=== PATIENT | male | born 1945 | race Caucasian/White ===

== ENCOUNTER → 2018-02-22 07:30 | Outpatient (CLI) | payer MEDICARE, SELFPAY ==
[2018-02-22 09:23] LABS: Alanine Aminotransferase 18 IU/L (21-72); Albumin Globulin Ratio 1.2 (1.0-2.8); Alkaline Phosphatase 57 U/L (38-126); Aspartate Aminotransferase 22 IU/L (17-59); BUN Creatinine Ratio 24.3 (6-22); Bilirubin Total 0.6 mg/dL (0.2-1.3); Calcium 8.6 mg/dL (8.4-10.2); Cholesterol 157 mg/dL (140-199); Estimated Glomerular Filt Rate 49.5 mL/min (>60); Globulin 3.4 g/dL (1.7-4.1); Glucose 98 mg/dL (80-110); HDL Cholesterol 28 mg/dL (40-60); HEMOLYSIS < 15 (0-50); LDL Cholesterol Calculated 98 mg/dL (<100); Potassium 3.7 mmol/L (3.4-5.1); Sodium 142 mmol/L (137-145); Total Protein 7.4 g/dL (6.3-8.2); Triglycerides 155 mg/dL (35-150)
[2018-02-22 09:41] LABS: Thyroid Stimulating Hormone 2.02 uIU/mL (0.47-4.68)
== END ==
PROVIDERS: PCP Internal Medicine; Visit Provider Internal Medicine Cardiovascular Disease
DX: I48.0 Paroxysmal atrial fibrillation (principal)
CPT/HCPCS: 36415; 80053; 80061; 84443

== ENCOUNTER → 2018-04-12 07:11 | Outpatient (CLI) | payer MEDICARE, SELFPAY ==
[2018-04-12 09:16] LABS: Hemoglobin A1C% w Est Avg Glu 5.7 % (4.0-6.0)
[2018-04-12 09:52] LABS: Blood Urea Nitrogen 30 mg/dL (9-20); Calcium 9.4 mg/dL (8.4-10.2); Carbon Dioxide 29 mmol/L (22-32); Chloride 100 mmol/L (98-107); Estimated Glomerular Filt Rate 45.6 mL/min (>60); Glucose 96 mg/dL (80-110); HEMOLYSIS < 15 (0-50); Potassium 4.3 mmol/L (3.4-5.1); Sodium 142 mmol/L (137-145)
== END ==
PROVIDERS: Family Provider Internal Medicine; PCP Internal Medicine; Visit Provider Internal Medicine
DX: E11.9 Type 2 diabetes mellitus without complications (principal)
CPT/HCPCS: 36415; 80048; 83036

== ENCOUNTER 2018-05-08 16:48 | Emergency (ER) | payer MEDICARE, SELFPAY ==
[2018-05-08 16:52] VITALS: BP 150/85; PULSE 76; RESP 20; TEMP 36; O2SAT 95
--- NOTE | 2018-05-08 18:20 | PC.NURSE ---
pt c/o right whitt bleeding just below the knee, started today, could not get to stop bleeding, does that aspirin.
--- NOTE | 2018-05-08 18:28 | ED.EXTPRO ---
HPI - Extremity Problem General Chief complaint: Extremity Problem,Nontraumatic Stated complaint: RIGHT LEG NON STOP BLEEDING Time Seen by Provider: 05/08/18 18:16 Source: patient and family Mode of arrival: ambulatory Limitations: no limitations History of Present Illness HPI Narrative: Patient presents with a small bleeding skin lesion on the left anterior lower leg. He does take aspirin. It has been bleeding for a few hours despite use of cotton swabs. He is not dizzy nor weak or lightheaded. He denies any specific injury but states there is a small lesion there which he picked and then it started bleeding MD Complaint: other Onset (ago): hour(s) Pain Consistency: constant Location: right Related Data Home Medications Medication Instructions Recorded Confirmed magnesium oxide 1 tab PO Q DAY #0 07/31/16 metoprolol succinate [Toprol XL] 25 mg PO BID #0 07/31/16 zinc gluconate 50 mg PO #0 10/11/16 aspirin 325 mg PO QDAY #0 04/08/17 glucosamine sulfate [Genicin] PO QDAY #0 04/08/17 testosterone cypionate 1.5 ml IM [id number] #0 04/08/17 [Depo-Testosterone] Previous Rx's Medication Instructions Recorded tamsulosin [Flomax] 0.8 mg PO 1730 #60 cap 10/14/16 lovastatin 40 mg PO Q DAY #90 tab 03/04/17 omeprazole 20 mg PO QDAY #90 cap 03/04/17 metformin 1,000 mg PO BIDCC #180 tab 05/06/17 potassium chloride [Klor-Con M20] 20 meq PO AMCC #90 tab 05/27/17 enalapril maleate 5 mg PO QDAY #90 tab 08/03/17 triamterene-hydrochlorothiazid 1 cap PO QDAY #90 cap 09/15/17 [Dyazide] blood sugar diagnostic strips #100 each 04/23/18 Review of Systems Review of Systems All systems reviewed & are unremarkable except as noted in HPI and below Constitutional Denies chills, Denies fever(s), Denies lethargy and Denies weakness Eyes Denies change in vision, Denies eye discharge, Denies irritation and Denies loss of vision ENT Ears, Nose, Mouth, and Throat: Denies change in voice, Denies neck pain and Denies sore throat Cardiovascular Denies chest pain, Denies irregular heart rhythm, Denies lightheadedness, Denies palpitations, Denies dyspnea, Denies dyspnea on exertion and Denies orthopnea Respiratory Denies cough, Denies dyspnea, Denies dyspnea on exertion and Denies wheezing Gastrointestinal Gastrointestinal: Denies abdominal pain, Denies change in bowel habits, Denies diarrhea, Denies nausea and Denies vomiting Genitourinary Denies hematuria, Denies flank pain, Denies urinary incontinence and Denies urinary urgency Musculoskeletal Denies neck pain Integumentary/Breasts Denies pruritus, Denies erythema, Denies rash, Reports skin ulcer and Reports wounds Neurologic Denies confusion, Denies loss of vision and Denies weakness Psychiatric Denies anxiety, Denies confusion, Denies depression, Denies homicidal ideation and Denies suicidal ideation Endocrine Denies palpitations Hematologic/Lymphatic Denies easy bruising Allergic/Immunologic Denies wheezing PFSH Surgical History History of cystoscopy Family History Father CAD (coronary artery disease) Hyperlipidemia Hypertension Social History Smoking Status: Never smoker Exam Narrative Exam Narrative: GEN: Pleasant 73-year-old male is alert and oriented, resting comfortably EYES: Pupils are equal, round, and reactive to light and accommodation. Extraoccular muscles are intact bilaterally. There is no subconjunctival hemorrhage or exudate. CHEST: Lungs are clear to auscultation bilaterally and free of wheezes, rales, or rhonchi. Heart rate is regular rhythm, there are no murmurs, clicks, rubs, or gallops. There is no chest wall tenderness. ABD: Abdomen is soft and nontender. There is no guarding or rebound. Bowel sounds are normal in all 4 quadrants. There is no mass or organomegaly. EXT: Small bleeding lesion on left anterior whitt., appears to be a small vascular abnormality SKIN: Warm, pink, and dry. No erythema or rash Initial Vital Signs Initial Vital Signs: Vital Signs Temperature 96.8 F L 05/08/18 16:52 Pulse Rate 76 05/08/18 16:52 Respiratory Rate 20 05/08/18 16:52 Blood Pressure 150/85 H 05/08/18 16:52 Pulse Oximetry 95 05/08/18 16:52 Procedures Laceration Repair Laceration 1: Site: lower extremity Side (If applicable): right Size (cm): 0.02 Description: linear Depth: simple, single layer Local Anesthetic: lidocaine 1% and with epi Amount of anesthesia used (mL): 3 Skin layer closed with: nylon Size (cm): 4-0 Number of sutures: 1 Course Reevaluation(s) Reevaluation #1: No bleeding after deep biting suture placed Vital Signs - 8 hr 05/08/18 16:52 Temperature 96.8 F L Pulse Rate 76 Respiratory Rate 20 Blood Pressure 150/85 H Pulse Oximetry 95 Discharge Plan Departure Patient Disposition: Home, Self-Care Clinical Impression: Bleeding from wound Discharge Date/Time: 05/08/18 18:41 Interventions: ED Discharge Assessment Last Done: 05/08/18 18:40 Instructions: Skin Wound Activity Restrictions/Additional Instructions: *You have been diagnosed with [ bleeding varicosity ] *What to do: * continue to take medications as directed Please keep the wound clean and dry to the best of your ability. Please monitor for signs of infection such as redness to the skin or increasing pain. Have the sutures removed by your doctor in about 5-7 days. If you are unable to get into your doctor, we would be happy to remove the sutures in that same timeframe. Prescriptions: No Action metoprolol succinate [Toprol XL] 25 MG tablet extended release 24 hr 25 mg PO BID Qty: 0 RF: 0 magnesium oxide 400 MG tablet 1 tab PO Q DAY Qty: 0 RF: 0 zinc gluconate 50 MG tablet 50 mg PO Qty: 0 RF: 0 tamsulosin [Flomax] 0.4 MG capsule,extended release 24hr 0.8 mg PO 1730 Qty: 60 RF: 3 lovastatin 40 MG tablet 40 mg PO Q DAY Qty: 90 RF: 3 omeprazole 20 MG capsule,delayed release(DR/EC) 20 mg PO QDAY Qty: 90 RF: 3 aspirin 325 MG tablet,delayed release (DR/EC) 325 mg PO QDAY Qty: 0 RF: 0 glucosamine sulfate [Genicin] 500 MG capsule PO QDAY Qty: 0 RF: 0 testosterone cypionate [Depo-Testosterone] 200 MG/1 ML oil 1.5 ml IM [id number] Qty: 0 RF: 0 metformin 1,000 MG tablet 1,000 mg PO BIDCC Qty: 180 RF: 3 potassium chloride [Klor-Con M20] 20 MEQ tablet,ER particles/crystals 20 meq PO AMCC Qty: 90 RF: 0 enalapril maleate 5 MG tablet 5 mg PO QDAY Qty: 90 RF: 1 triamterene-hydrochlorothiazid [Dyazide] 37.5 MG/25 MG capsule 1 cap PO QDAY Qty: 90 RF: 0 blood sugar diagnostic [True Metrix Glucose Test Strip] strip .ROUTE .MEDSUPPLY Qty: 100 RF: 4
== END 2018-05-08 18:41 | disposition home or self-care (01) ==
PROVIDERS: Emergency Provider Emergency Medicine; Family Provider Internal Medicine; PCP Internal Medicine
DX: S81.801A Unspecified open wound, right lower leg, initial encounter (principal)
CPT/HCPCS: 12001; 99282

== ENCOUNTER → 2018-05-20 08:05 | Outpatient (CLI) | payer MEDICARE, SELFPAY ==
[2018-05-20 10:55] LABS: Free T3, Triiodothyronine Free 3.68 pg/mL (2.77-5.27); Free T4, Direct Thyroxine 1.15 ng/dL (0.78-2.19)
[2018-05-20 11:09] LABS: Thyroid Stimulating Hormone 2.15 uIU/mL (0.47-4.68)
== END ==
PROVIDERS: Family Provider Urology; PCP Internal Medicine; Visit Provider Internal Medicine Endocrinology, Diabetes & Metabolism
DX: E29.1 Testicular hypofunction (principal); E03.8 Other specified hypothyroidism
CPT/HCPCS: 36415; 84403; 84439; 84443; 84481

== ENCOUNTER → 2018-05-24 10:38 | Outpatient (CLI) | payer MEDICARE, SELFPAY ==
[2018-05-24 12:32] LABS: Add Manual Diff / Slide Review NO; Basophils Percent Auto 0.9 % (0-2); Eosinophils Percent Auto 4.1 % (2-4); Hematocrit 44.6 % (41-53); Hemoglobin 15.2 g/dL (13.5-17.5); Mean Corpuscular HGB Conc 34.1 % (30-36); Mean Corpuscular Hemoglobin 31.7 PG (26-34); Monocytes Percent Auto 10.2 % (3-14); Neutrophils Absolute Auto 4100 /uL (3000-5900); Neutrophils Percent Auto 71.8 % (50-75); Platelet Count 186 X10^3/uL (150-400); Red Blood Cell Count 4.79 X10^6/uL (4.5-5.9); White Blood Cell Count 5.8 X10^3/uL (4.5-11.0)
[2018-05-24 13:03] LABS: Alanine Aminotransferase 44 IU/L (21-72); Albumin 4.3 g/dL (3.5-5.0); Albumin Globulin Ratio 1.5 (1.0-2.8); Alkaline Phosphatase 68 U/L (38-126); Aspartate Aminotransferase 25 IU/L (17-59); Bilirubin Total 0.7 mg/dL (0.2-1.3); Bilirubin Unconjugated 0.3 mg/dL (0.0-1.1); Globulin 2.9 g/dL (1.7-4.1); HEMOLYSIS < 15 (0-50); Total Protein 7.2 g/dL (6.3-8.2)
== END ==
PROVIDERS: Family Provider Urology; PCP Internal Medicine; Visit Provider Urology
DX: R97.20 Elevated prostate specific antigen [PSA] (principal); E29.1 Testicular hypofunction
CPT/HCPCS: 36415; 80076; 84153; 84403; 85025

== ENCOUNTER → 2018-07-05 08:48 | Outpatient (CLI) | payer MEDICARE, SELFPAY ==
[2018-07-05 09:39] LABS: Creatinine Urine Random 103.4 mg/dL
[2018-07-05 09:44] LABS: Microalbumi Creatinin Ratio Ur 38.6 ug/mg CR (<30)
[2018-07-05 09:46] LABS: Hemoglobin A1C% w Est Avg Glu 5.5 % (4.0-6.0)
[2018-07-05 09:52] LABS: BUN Creatinine Ratio 19.2 (6-22); Blood Urea Nitrogen 25 mg/dL (9-20); Calcium 9.1 mg/dL (8.4-10.2); Carbon Dioxide 34 mmol/L (22-32); Chloride 102 mmol/L (98-107); Estimated Glomerular Filt Rate 53.8 mL/min (>60); Glucose 93 mg/dL (80-110); HEMOLYSIS < 15 (0-50); Potassium 4.3 mmol/L (3.4-5.1); Sodium 142 mmol/L (137-145)
[2018-07-05 18:02] LABS: Hep C Virus Ab w/Reflex Quant NEGATIVE s/c (NEGATIVE)
== END ==
PROVIDERS: Family Provider Urology; PCP Internal Medicine; Visit Provider Denturist
DX: N18.9 Chronic kidney disease, unspecified (principal); E11.9 Type 2 diabetes mellitus without complications; I10 Essential (primary) hypertension
CPT/HCPCS: 36415; 80048; 82043; 82570; 83036; 86803

== ENCOUNTER → 2018-08-16 15:53 | Outpatient (CLI) | payer MEDICARE, SELFPAY | PROVIDERS: Family Provider Urology; PCP Internal Medicine; Visit Provider Urology | DX: R97.20 Elevated prostate specific antigen [PSA] (principal) | CPT/HCPCS: 36415; 84153 ==

== ENCOUNTER → 2019-01-13 08:41 | Outpatient (CLI) | payer MEDICARE, SELFPAY ==
[2019-01-13 09:52] LABS: Add Manual Diff / Slide Review NO; Basophils Absolute Auto 0 /uL (0-100); Basophils Percent Auto 0.5 % (0-2); Eosinophils Absolute Auto 200 /uL (0-450); Eosinophils Percent Auto 2.7 % (2-4); Hematocrit 46.4 % (41-53); Hemoglobin 15.5 g/dL (13.5-17.5); Lymphocytes Absolute Auto 800 /uL (1100-4500); Lymphocytes Percent Auto 9.1 % (25-40); Mean Corpuscular HGB Conc 33.3 % (30-36); Mean Corpuscular Hemoglobin 29.6 PG (26-34); Mean Corpuscular Volume 88.8 fL (80-100); Monocytes Absolute Auto 800 /uL (0-900); Monocytes Percent Auto 8.6 % (3-14); Neutrophils Absolute Auto 7100 /uL (1500-7000); Neutrophils Percent Auto 79.1 % (50-75); Platelet Count 181 X10^3/uL (150-400); Red Blood Cell Count 5.22 X10^6/uL (4.5-5.9)
[2019-01-13 10:31] LABS: Alanine Aminotransferase 25 IU/L (21-72); Albumin 4.1 g/dL (3.5-5.0); Albumin Globulin Ratio 1.4 (1.0-2.8); Alkaline Phosphatase 61 U/L (38-126); Aspartate Aminotransferase 19 IU/L (17-59); Bilirubin Total 0.7 mg/dL (0.2-1.3); Bilirubin Unconjugated 0.5 mg/dL (0.0-1.1); HEMOLYSIS < 15 (0-50); Total Protein 7.1 g/dL (6.3-8.2)
[2019-01-13 10:47] LABS: Free T3, Triiodothyronine Free 5.46 pg/mL (2.77-5.27); Free T4, Direct Thyroxine 1.14 ng/dL (0.78-2.19)
[2019-01-13 11:00] LABS: Thyroid Stimulating Hormone 1.85 uIU/mL (0.47-4.68)
[2019-01-13 11:02] LABS: Prostate Specific Antigen 8.31 ng/mL (0.10-4.00)
== END ==
PROVIDERS: Family Provider Internal Medicine; PCP Internal Medicine; Visit Provider Internal Medicine Endocrinology, Diabetes & Metabolism
DX: E03.8 Other specified hypothyroidism (principal); R97.20 Elevated prostate specific antigen [PSA]; E29.1 Testicular hypofunction
CPT/HCPCS: 36415; 80076; 84153; 84403; 84439; 84443; 84481; 85025

== ENCOUNTER → 2019-02-14 13:50 | Outpatient (CLI) | payer MEDICARE, SELFPAY ==
--- NOTE | 2019-02-14 | DI.ECHO.S_ITS ---
[place] [facility]---------+ [facility] +---------+ : : [address] : : : : [phone] : : : : Phone: [phone]+ Echocardiogram Report + + :Name: ADRIAN WARREN Study Date: 02/14/2019 Height: 68 in : :[facility] Weight: 233 lb : : Gender: Male BSA: 2.2 m2 : :: 1945 Age: 73 yrs BP: 140/78 mmHg: :Reason For Study: A FIB : :Ordering Physician: Gonzalez Zamudio : :Deepti Performed By: Spring Sheets : :Referring: GONZALEZ LEVINE : + + Interpretation Summary The left ventricle is normal in size. The ejection fraction is estimated to be 55-60%. Compared to the prior exam, the left ventricular function is improved. Flattened septum is consistent with RV pressure/volume overload. Diastolic parameters suggest a pseudonormalization pattern, consistent with probable elevated filling pressures. The right ventricle is moderately dilated. Right ventricular systolic function is mildly reduced. There is mild to moderate mitral regurgitation. Compared to the prior echo study, there has been no change in the severity of mitral regurgitation. There is moderate tricuspid regurgitation. Compared to the prior echo exam, there has been an increase in TR severity. The right ventricular systolic pressure is estimated to be at least 49 mmHg based on an estimated right atrial pressure of 3 mm Hg. Compared to the prior echo exam, there has been an increase in the severity of pulmonary hypertension. There is moderate pulmonic regurgitation. The ascending aorta is mildly enlarged. Procedure: A two-dimensional transthoracic echocardiogram with color flow and Doppler was performed. The study quality was technically adequate. Comparison is made with the echocardiogram of 03/18/16. The patient was in normal sinus rhythm during the exam. The patient had occasional PVCs during the exam. Left Ventricle: There is mild concentric left ventricular hypertrophy. The left ventricle is normal in size. There is no thrombus. The ejection fraction is estimated to be 55-60%. Compared to the prior exam, the left ventricular function is improved. Flattened septum is consistent with RV pressure/volume overload. Diastolic parameters suggest a pseudonormalization pattern, consistent with probable elevated filling pressures. Right Ventricle: The right ventricle is moderately dilated. Right ventricular systolic function is mildly reduced. Atria: The left atrium is severely dilated. The left atrium has remained unchanged in size since the prior echo exam. The right atrium is severely dilated. The right atrium has significantly increased in size since the prior echo exam. There is no Doppler evidence for an interatrial shunt. Mitral Valve: The mitral valve leaflets are moderately calcified. There is moderate to severe mitral annular calcification. No significant mitral valve stenosis. There is mild to moderate mitral regurgitation. Compared to the prior echo study, there has been no change in the severity of mitral regurgitation. Aortic Valve: The aortic valve is trileaflet. There is mild aortic valve sclerosis. Leaflet mobility is minimally reduced. There is no aortic valve stenosis. There is mild aortic regurgitation. Compared to the prior echo study, there has been no change in the severity of aortic regurgitation. Tricuspid Valve: The tricuspid valve is normal. There is moderate tricuspid regurgitation. The right ventricular systolic pressure is estimated to be at least 49 mmHg based on an estimated right atrial pressure of 3 mm Hg. Compared to the prior echo exam, there has been an increase in TR severity. Compared to the prior echo exam, there has been an increase in the severity of pulmonary hypertension. Pulmonic Valve: The pulmonic valve is not well seen, but is grossly normal. There is moderate pulmonic regurgitation. Great Vessels: The aortic root is mildly dilated. The ascending aorta is mildly enlarged. The aortic arch could not be visualized. The pulmonary artery is normal size. The IVC is of normal diameter and collapses greater than 50% with a sniff. This suggests a low right atrial pressure of 3 mm Hg. Pericardium/ Pleura There is no pericardial effusion. There is no pleural effusion. MMode/2D Measurements & Calculations LVIDd: 4.8 cm LVOT diam: 2.3 cm LVIDs: 3.1 cm Ao root diam: 4.0 cm FS: 34.7 % asc Aorta Diam: 3.8 cm EPSS: 1.1 cm IVSd: 1.2 cm LVPWd: 1.2 cm LV justice. diameter/BSA (cm/m^2): 2.2 LV sys. diameter/BSA (cm/m^2): 1.4 LA A2 area: 33.8 cm2 RA long axis: 6.8 cm LA A4 area: 37.3 cm2 RA area: 33.0 cm2 LA length (vol): 7.4 cm RA vol: 134.8 ml LA vol: 144.9 ml RA : 61.8 ml/m2 LA vol index: 66.4 ml/m2 IVC diam: 2.0 cm TAPSE: 1.0 cm Doppler Measurements & Calculations Ao V2 max: 161.8 cm/sec LVOT Max Keyon: 79.7 cm/sec Ao V2 mean: 111.3 cm/sec LV V1 max P.5 mmHg Ao max P.5 mmHg LV V1 VTI: 15.4 cm Ao mean P.8 mmHg IZABEL(I,D): 2.1 cm2 Ao V2 VTI: 30.2 cm IZABEL(V,D): 2.1 cm2 sev ratio: 0.51 IZABEL indexed to BSA (cm^2/m^2): 0.98 MV E max keyon: 112.2 cm/sec TR max keyon: 338.1 cm/sec MV A max keyon: 61.5 cm/sec TR max P.7 mmHg MV E/A: 1.8 PA V2 max: 77.2 cm/sec Med Peak E' Keyon: 4.6 cm/sec PA V2 mean: 49.7 cm/sec E/E' med: 24.2 PA mean P.1 mmHg Lat Peak E' Keyon: 6.2 cm/sec PA Accel Time: 0.06 sec E/E' lat: 18.1 E/e' average: 21.1 MV dec time: 0.15 sec MVA(VTI): 2.3 cm2 MV V2 mean: 71.4 cm/sec SV(LVOT): 64.9 ml MV mean P.3 mmHg MV V2 VTI: 28.1 cm Reading Physician:YESSI
== END ==
PROVIDERS: Family Provider Internal Medicine; PCP Internal Medicine; Visit Provider Internal Medicine Cardiovascular Disease
DX: I08.3 Combined rheumatic disorders of mitral, aortic and tricuspid valves (principal); I48.0 Paroxysmal atrial fibrillation; I77.89 Other specified disorders of arteries and arterioles; I27.20 Pulmonary hypertension, unspecified
CPT/HCPCS: 93306

== ENCOUNTER → 2019-02-24 09:18 | Outpatient (CLI) | payer MEDICARE, SELFPAY ==
--- NOTE | 2019-02-24 | DI.MRI.S_ITS ---
PROCEDURE: MR STROKE Pre- and post-contrast brain MRI, non-contrast brain MR angiogram, pre- and postcontrast neck MR angiogram INDICATIONS: DIPLOPIA TECHNIQUE: Brain: Noncontrast axial T1 spin echo, axial T2 fast spin echo, sagittal and axial FLAIR, coronal T2 fast spin echo, axial gradient echo, axial diffusion and ADC through the brain. After the administration of contrast, axial 3D VIBE of the cranial vasculature and brain. Brain MRA: Non-contrast 3-D time of flight MR angiogram, with multiple bbcevyz-mpwqnierm-oufwbumnqs (MIP) reformats performed. Neck MRA: Axial and sagittal TruFISP through the neck. Coronal dynamic MR angiogram during administration of contrast in the arterial and venous phases, with 3-dimenstional toxjnjf-vksxzqddx-ynztwqqpmg (MIP) reformats constructed from subtraction images. COMPARISON: None. FINDINGS: Image quality: Examination is limited by motion artifact. BRAIN: CSF spaces: Ventricles are normal in size and shape. Basal cisterns are patent. There is a nonenhancing CSF intensity focus at the anterior aspect of the left temporal lobe, measuring 43 mm diameter. Brain: No intracranial bleeds or mass effects. Moderate diffuse volume loss. Mild degree of patchy high FLAIR signal within the periventricular and subcortical white matter, consistent with small vessel ischemic disease. Abraham-white matter interface is normal. Diffusion weighted images show no acute ischemic insults. Brainstem appears normal. There is loss of the internal carotid artery flow void. No abnormal intracranial enhancement. Skull and face: Calvarial marrow signal is normal. Orbits appear normal. Sinuses: Sinuses and mastoids are clear. BRAIN MR ANGIOGRAM: Anterior circulation: Intracranial internal carotid arteries are normal in size and enhancement. The flow within the paired anterior cerebral arteries is normal and symmetric. The flow within the middle cerebral arteries is normal and symmetric. The anterior communicating artery is seen. No stenoses, occlusions, or aneurysms. Posterior circulation: The distal right vertebral artery appears to be occluded or very small in caliber. The right posterior inferior cerebellar artery appears to arise from the basilar artery. origin of the right posterior cerebral artery. The flow within the posterior cerebral arteries is normal and symmetric. No stenoses, occlusions, or aneurysms. NECK MR ANGIOGRAM: Thoracic aortic arch is patent visualized. There is a common origin of the innominate and left common carotid artery, which is patent. Innominate artery is patent. Right vertebral artery origin is not seen. There is a small caliber visualize right mid vertebral artery. Distal right vertebral artery is not seen. Right common carotid artery is grossly patent. Right internal carotid artery origin is not well seen, and demonstrates a possible high-grade stenosis. Right internal carotid artery is otherwise patent. Right external carotid artery is patent. Left common carotid artery is not well seen proximally, but is otherwise patent. Left external carotid artery is patent. Left internal carotid artery is occluded. Left subclavian artery is patent. Left vertebral artery dimensions a high-grade origin stenosis, and is otherwise patent. Survey Rodman T2 imaging through the neck is grossly unremarkable. IMPRESSION: BRAIN MRI: 1. No acute process. No recent infarct. 2. Volume loss and small vessel ischemic disease. 3. Left middle cranial fossa arachnoid cyst. BRAIN MR ANGIOGRAM: 1. Occluded left internal carotid artery. 2. Occluded versus small caliber right distal vertebral artery. 3. Otherwise negative cerebral MR angiography. NECK MR ANGIOGRAM: 1. Occluded left internal carotid artery. 2. Suboptimally visualized right internal carotid artery origin, which may be severely stenotic. This could be further assessed with carotid arterial Doppler examination, if clinically indicated. 3. High-grade left vertebral artery origin stenosis. 4. Small caliber, suboptimally visualized right vertebral artery. Dictated by: Giorgi Daniels M.D. on 02/24/2019 at 13:16 Approved by: Giorgi Daniels M.D. on 02/24/2019 at 13:24
== END ==
PROVIDERS: Family Provider Internal Medicine; PCP Internal Medicine; Visit Provider Internal Medicine
DX: H53.2 Diplopia (principal); I65.22 Occlusion and stenosis of left carotid artery; I65.02 Occlusion and stenosis of left vertebral artery
CPT/HCPCS: 70548; 70553; A9579

== ENCOUNTER → 2019-03-15 09:12 | Outpatient (CLI) | payer MEDICARE, SELFPAY ==
--- NOTE | 2019-03-15 | DI.US.S_ITS ---
PROCEDURE: US CAROTID DOPPLER BI INDICATIONS: OCCLUSION OF LEFT INTERNAL CAROTID ARTERY TECHNIQUE: Color and pulse Doppler interrogation was performed of both carotid systems, with image documentation and velocity measurements. COMPARISON: [facility], MR CAROL STROKE, 02/24/2019, 9:37. FINDINGS: Stenosis calculations are based on SRU (Society of Radiologists in Ultrasound) criteria. Right side: Brachial blood pressure: 144/77 mm Hg. Common carotid artery peak systolic velocity: 89 cm/sec. Internal carotid artery peak systolic velocity: 116 cm/sec. Internal carotid artery end diastolic velocity: 40 cm/sec. External carotid artery peak systolic velocity: 93 cm/sec. ICA/CCA peak systolic ratio: 1.30. Abraham scale imaging description: Moderate scattered plaque. Percent internal carotid artery stenosis: Less than 50%. Vertebral artery: Flow direction is antegrade. Left side: Brachial blood pressure: 137/79 mm Hg. Common carotid artery peak systolic velocity: 54 cm/sec. Internal carotid artery peak systolic velocity: Occluded Internal carotid artery end diastolic velocity: N./A. External carotid artery peak systolic velocity: 87 cm/sec. ICA/CCA peak systolic ratio: N./A.. Abraham scale imaging description: Heavy scattered plaque. Percent internal carotid artery stenosis: Occluded internal carotid artery.. Vertebral artery: Flow direction is antegrade. IMPRESSION: 1. Occluded left ICA. 2. Less than 50% right ICA stenosis. Dictated by: John Chahal [facility] Interpreted: Eloisa Shen MD on 03/15/2019 at 12:00 Approved by: Eloisa Shen M.D. on 03/15/2019 at 13:40
[2019-03-15 11:18] LABS: Add Manual Diff / Slide Review NO; Basophils Absolute Auto 100 /uL (0-100); Basophils Percent Auto 0.9 % (0-2); Eosinophils Absolute Auto 200 /uL (0-450); Eosinophils Percent Auto 3.1 % (2-4); Hematocrit 46.2 % (41-53); Hemoglobin 15.5 g/dL (13.5-17.5); Lymphocytes Absolute Auto 900 /uL (1100-4500); Lymphocytes Percent Auto 13.9 % (25-40); Mean Corpuscular HGB Conc 33.6 % (30-36); Mean Corpuscular Hemoglobin 29.9 PG (26-34); Monocytes Absolute Auto 700 /uL (0-900); Monocytes Percent Auto 10.2 % (3-14); Neutrophils Absolute Auto 4800 /uL (1500-7000); Neutrophils Percent Auto 71.9 % (50-75); Platelet Count 175 X10^3/uL (150-400); Red Blood Cell Count 5.19 X10^6/uL (4.5-5.9); Red Cell Distribution Width 15.2 % (11.6-14.8); White Blood Cell Count 6.7 X10^3/uL (4.5-11.0)
[2019-03-15 11:53] LABS: Alanine Aminotransferase 25 IU/L (21-72); Albumin 4.4 g/dL (3.5-5.0); Albumin Globulin Ratio 1.3 (1.0-2.8); Alkaline Phosphatase 66 U/L (38-126); Aspartate Aminotransferase 25 IU/L (17-59); BUN Creatinine Ratio 19.3 (6-22); Bilirubin Total 0.6 mg/dL (0.2-1.3); Bilirubin Unconjugated 0.3 mg/dL (0.0-1.1); Blood Urea Nitrogen 27 mg/dL (9-20); Calcium 9.2 mg/dL (8.4-10.2); Carbon Dioxide 32 mmol/L (22-32); Chloride 97 mmol/L (98-107); Estimated Glomerular Filt Rate 49.4 mL/min (>60); Globulin 3.4 g/dL (1.7-4.1); Glucose 104 mg/dL (80-110); HEMOLYSIS < 15 (0-50); Potassium 4.4 mmol/L (3.4-5.1); Sodium 138 mmol/L (137-145); Total Protein 7.8 g/dL (6.3-8.2)
[2019-03-15 12:11] LABS: Thyroid Stimulating Hormone 3.45 uIU/mL (0.47-4.68)
[2019-03-15 12:23] LABS: Prostate Specific Antigen 9.08 ng/mL (0.10-4.00)
== END ==
PROVIDERS: PCP Internal Medicine; Visit Provider Internal Medicine
DX: I65.23 Occlusion and stenosis of bilateral carotid arteries (principal); I48.0 Paroxysmal atrial fibrillation; E29.1 Testicular hypofunction; N40.0 Benign prostatic hyperplasia without lower urinary tract symptoms
CPT/HCPCS: 36415; 80053; 80076; 84153; 84403; 84443; 85025; 93880

== ENCOUNTER → 2019-04-19 08:30 | Outpatient (CLI) | payer MEDICARE, SELFPAY ==
--- NOTE | 2019-04-29 08:42 | PM.PFT.1 ---
Pulmonary Function Test Referral & Results Date Patient Seen: 04/19/19 Requesting provider: Chevy Purdy Indication: Bronchitis Results: The spirometry demonstrates an FVC of 2.81 L which is 75% of predicted. The FEV1 was measured at 1.93 L which is 73% of predicted. The FEV1/FVC ratio was 69 which is 95% of predicted. Following the administration of bronchodilator there was no appreciable change. Lung volumes show an SVC of 2.80 L which is 69% of predicted. The diffusing capacity was measured at 18.09 which is 63% of predicted. No hemoglobin value was provided, so no correction for potential anemia could be made, if appropriate. The maximum voluntary ventilation was reduced Interpretation: This study demonstrates mild obstructive lung disease based on slight reduction in FEV1. There was no evidence of significant benefit following bronchodilator administration There is also slight reduction in lung volumes suggesting mild restrictive lung disease based on reduction S VC There is also a more moderate reduction in diffusing capacity suggesting disease at the capillary alveolar level This is consistent with a diagnosis of COPD Clinical correlation suggested
== END ==
PROVIDERS: PCP Internal Medicine; Referring Provider Internal Medicine Cardiovascular Disease; Visit Provider Internal Medicine
DX: J40 Bronchitis, not specified as acute or chronic (principal); I48.0 Paroxysmal atrial fibrillation
CPT/HCPCS: 94060; 94726; 94729

== ENCOUNTER → 2019-05-03 12:59 | Outpatient (CLI) | payer MEDICARE, SELFPAY ==
[2019-05-03 14:46] LABS: Clostridium Difficile Tox PCR Negative for C. diff
== END ==
PROVIDERS: Internal Medicine; PCP Internal Medicine; Visit Provider Internal Medicine
DX: Z11.2 Encounter for screening for other bacterial diseases (principal)
CPT/HCPCS: 87493

== ENCOUNTER → 2019-06-16 08:47 | Outpatient (CLI) | payer MEDICARE, SELFPAY ==
[2019-06-16 10:39] LABS: Prostate Specific Antigen 7.46 ng/mL (0.10-4.00)
== END ==
PROVIDERS: PCP Internal Medicine; Visit Provider Urology
DX: R97.20 Elevated prostate specific antigen [PSA] (principal)
CPT/HCPCS: 36415; 84153

== ENCOUNTER → 2019-07-19 10:14 | Outpatient (CLI) | payer MEDICARE, SELFPAY ==
[2019-07-19 11:07] LABS: BUN Creatinine Ratio 23.3 (6-22); Blood Urea Nitrogen 35 mg/dL (9-20); Calcium 8.9 mg/dL (8.4-10.2); Carbon Dioxide 28 mmol/L (22-32); Chloride 102 mmol/L (98-107); Cholesterol 161 mg/dL (140-199); Estimated Glomerular Filt Rate 45.5 mL/min (>60); Glucose 110 mg/dL (80-110); HDL Cholesterol 37 mg/dL (40-60); HEMOLYSIS 18 (0-50); LDL Cholesterol Calculated 94 mg/dL (<100); Potassium 4.3 mmol/L (3.4-5.1); Sodium 142 mmol/L (137-145); Triglycerides 152 mg/dL (35-150)
[2019-07-19 11:19] LABS: Free T3, Triiodothyronine Free 4.02 pg/mL (2.77-5.27)
[2019-07-19 11:33] LABS: TSH w/ Reflex to FT4 1.87 uIU/mL (0.47-4.68)
[2019-07-19 11:50] LABS: Vitamin B12 589 pg/mL (239-931)
== END ==
PROVIDERS: PCP Internal Medicine; Visit Provider Internal Medicine
DX: E11.9 Type 2 diabetes mellitus without complications (principal); R41.89 Other symptoms and signs involving cognitive functions and awareness; E03.9 Hypothyroidism, unspecified
CPT/HCPCS: 36415; 80048; 80061; 82607; 83036; 84443; 84481

== ENCOUNTER 2020-01-12 19:16 | Inpatient (IN) | payer MEDICARE, SELFPAY ==
--- NOTE | 2020-01-12 19:23 | DI.RAD.S_ITS ---
PROCEDURE: XR CHEST 1V INDICATIONS: fever, weakness, cough TECHNIQUE: One view of the chest was acquired. COMPARISON: CT, CT ANGIO CHEST, 10/01/2016, 11:38. [facility], , CHEST 1 VIEW, 10/11/2016, 13:56. FINDINGS: Surgical changes and devices: None. Lungs and pleura: Left greater than right bibasilar opacity. No pleural effusions or pneumothorax. Mediastinum: Mediastinal contours appear normal. Heart size is enlarged. Bones and chest wall: No suspicious bony lesions. Overlying soft tissues appear unremarkable. IMPRESSION: Left greater than right bibasilar opacity. This could be due to atelectasis, pneumonia, or aspiration. Cardiomegaly. Dictated by: Job Vargas M.D. on 01/12/2020 at 19:56 Approved by: Job Vargas M.D. on 01/12/2020 at 19:59
--- NOTE | 2020-01-12 19:26 | ED_ITS ---
HPI - Fever General Chief Complaint: Nausea/Vomiting/Diarrhea Stated Complaint: Fever, N/V decreased LOC Time Seen by Provider: 01/12/20 19:22 Source: patient and EMS Mode of arrival: EMS Limitations: no limitations History of Present Illness HPI Narrative: This is a 74-year-old male comes emergency department with complaint of fever the last day, nausea vomiting the last few hours and weakness. Per EMS patient has had increased confusion recently although he is alert, appropriate, cooperative and answering questions appropriately department. Patient states that he does not have a headache, he denies any antione st pain or shortness of breath. He has had a cough which he states has been present for a prolonged period of time and EMS states his also correlated this. He did have some nausea and dry heaving with EMS and here in the department. Patient denies abdominal pain. He denies any diarrhea or c onstipation, he denies any urinary, frequency, dysuria or urgency. Patient denies any rashes or skin changes. He has felt more weak describes it as generalized and not localized. He does have a cardiac history describes an ablation in the past and follows with cardiology and was scheduled to have a Holter monitor which was canceled based on the current lozoya Demadex situation. He does take amiodarone, he takes enalapril, levothyroxine, a statin as well as metoprolol, potassium supplementation, Xarelto and Flomax. Patient denies any tobacco, rare alcohol with none recently. He lives at home independently with his is normally mobile. Related Data Home Medications Medication Instructions Recorded Confirmed magnesium oxide 1 tab PO Q DAY #0 07/31/16 04/18/19 metoprolol succinate [Toprol XL] 25 mg PO BID #0 07/31/16 04/18/19 aspirin 325 mg PO QDAY #0 04/08/17 04/18/19 testosterone cypionate 1.5 ml IM [id number] #0 04/08/17 04/18/19 [Depo-Testosterone] amiodarone 200 mg tablet 200 mg PO DAILY 04/18/19 04/18/19 levothyroxine 88 mcg capsule 88 mcg PO DAILY 04/18/19 04/18/19 liothyronine 5 mcg tablet 10 mcg PO DAILY tab 04/18/19 04/18/19 rivaroxaban 20 mg tablet 20 mg PO DAILY 04/18/19 04/18/19 Previous Rx's Medication Instructions Recorded tamsulosin [Flomax] 0.8 mg PO 1730 #60 cap 10/14/16 lovastatin 40 mg PO Q DAY #90 tab 03/04/17 omeprazole 20 mg PO QDAY #90 cap 03/04/17 potassium chloride [Klor-Con M20] 20 meq PO AMCC #90 tab 05/27/17 enalapril maleate 5 mg PO QDAY #90 tab 08/03/17 blood sugar diagnostic #100 each 04/23/18 Allergies Allergy/AdvReac Type Severity Reaction Status Date / Time No Known Drug Allergies Allergy Unverified 04/18/19 09:47 Review of Systems Review of Systems ROS Unobtainable: All systems reviewed & are unremarkable except as noted in HPI and below Patient History Social History Smoking Status: Never smoker Smoking Status: Never smoker alcohol intake frequency: 0-2 drinks per day Substance Use Type: does not use Exam Narrative Exam Narrative: GEN: well nourished, well appearing obese male, alert and oriented x 3, patient appears to be in mild distress. Patient is warm to touch. HEENT: Atraumatic, pupils are equal round reactive to light, extraocular movements are intact, nares are clear, throat is clear without any exudates, erythema, tonsillar enlargement or uvular deviation, negative Kernig's and Brudzinski. HEART: Regular rate and rhythm without murmur, clicks, rubs. Pulses are equal in upper and lower extremities LUNGS:Lungs have mild wheezes on the right, no rales, crackles, chest moves symmetrically, no tachypnea. Speaking in full sentences. ABD:bowel sounds normal, soft, non-tender, no guarding, rebound, rigidity, no masses noted, no hepatosplenomegaly :No CVA tenderness, normal may genitalia. MSCL: Non-tender, no muscle atrophy, full range of motion NEURO:CN 2-12 intact, sensation normal SKIN: No rash, no erythema or petechiae. Initial Vital Signs Initial Vital Signs: Vital Signs Temperature 99.3 F 01/12/20 19:55 Pulse Rate 80 01/12/20 19:55 Respiratory Rate 22 03/26/20 19:55 Blood Pressure 139/58 L 01/12/20 19:55 Pulse Oximetry 91 01/12/20 19:55 Course Orders Ordered: ED Orders 01/12/20 19:16 Urinalysis and Microscopic Stat 01/12/20 19:23 XR chest 1V Stat 01/12/20 19:25 C-Reactive Protein Quant Stat Complete Blood Count AUTO DIFF Stat Comprehensive Metabolic Panel Stat Influenza A & B (PCR) Stat Lactate (Lactic Acid) Stat NT-proBNP (BNP-Adult 18+) Stat Partial Thromboplastin Time Stat Procalcitonin Stat Prothrombin Time INR Stat Troponin & CK Cardiac Panel Stat 01/12/20 19:33 EKG-12 Lead Stat 01/12/20 20:08 Blood Culture Stat 01/12/20 20:43 Respiratory Panel (Film Array) Stat Discontinued Medications Acetaminophen (Tylenol) 650 mg PO NOW ONE Stop: 01/12/20 19:23 Last Admin: 01/12/20 19:41 Dose: 650 mg Documented by: PERLA Albuterol (Ventolin Hfa) 4 puff INH NOW ONE Stop: 01/12/20 19:33 Last Admin: 01/12/20 20:11 Dose: 4 puff Documented by: MARILYNN Sodium Chloride (Normal Saline 0.9%) 1,000 mls @ 1,000 mls/hr IV BOLUS ONE Stop: 01/12/20 20:25 Last Admin: 01/12/20 19:42 Dose: 1,000 mls/hr Documented by: PERLA Ceftriaxone Sodium/Dextrose (Rocephin) 2 gm in 50 mls @ 100 mls/hr IV NOW ONE Stop: 01/12/20 21:03 Last Admin: 01/12/20 20:45 Dose: 100 mls/hr Documented by: PERLA Vital Signs Vital signs: Vital Signs - 8 hr 01/12/20 19:55 01/12/20 20:12 01/12/20 20:30 Temperature 99.3 F Pulse Rate 80 80 81 Respiratory Rate 22 20 20 Blood Pressure 139/58 L Blood Pressure [Left Arm] 124/60 Pulse Oximetry 91 92 91 MDM - Fever Lab Data Attestation: I reviewed the patient's lab results. Result diagrams: 01/12/20 19:25 01/12/20 19:25 Labs: Lab Results 01/12/20 01/12/20 01/12/20 Range/Units 19:16 19:25 19:25 WBC (4.5-11.0) X10^3/uL RBC (4.5-5.9) X10^6/uL Hgb (13.5-17.5) g/dL Hct (41-53) % MCV (80-100) fL MCH (26-34) PG MCHC (30-36) % RDW (11.6-14.8) % Plt Count (150-400) X10^3/uL Neut % (Auto) (50-75) % Lymph % (Auto) (25-40) % [place] % (Auto) (3-14) % Eos % (Auto) (2-4) % Baso % (Auto) (0-2) % Neut # (Auto) (1222-4521) /uL Lymph # (Auto) (8737-3206) /uL [place] # (Auto) (0-900) /uL Eos # (Auto) (0-450) /uL Baso # (Auto) (0-100) /uL PT (10.1-12.7) SECONDS INR (0.9-1.3) APTT (26.4-36.2) SECONDS Sodium (137-145) mmol/L Potassium (3.4-5.1) mmol/L Chloride (98-107) mmol/L Carbon Dioxide (22-32) mmol/L BUN (9-20) mg/dL Creatinine (0.66-1.25) mg/dL Estimated GFR (>60) mL/min BUN/Creatinine Ratio (6-22) Glucose (80-110) mg/dL Lactate (0.7-2.1) mmol/L Calcium (8.4-10.2) mg/dL Total Bilirubin (0.2-1.3) mg/dL AST (17-59) IU/L ALT (<50) IU/L Alkaline Phosphatase (38-126) U/L Total Creatine Kinase 107 (55-170) U/L CK-MB (CK-2) 1.07 (<2.37) ng/mL CK-MB (CK-2) Rel Index 1.0 L (1.5-5.0) % Troponin I < 0.012 (0.01-0.034) ng/mL C-Reactive Protein 1.4 H (<1.0) mg/dL NT-Pro-B Natriuret Pep 330 (<450) pg/mL Total Protein (6.3-8.2) g/dL Albumin (3.5-5.0) g/dL Globulin (1.7-4.1) g/dL Albumin/Globulin Ratio (1.0-2.8) Procalcitonin (<0.5) ng/mL Urine Color Yellow Urine Appearance Clear Urine pH 5.0 (4.5-8.0) Ur Specific [place] 1.020 (1.000-1.035) Urine Protein Negative (Negative) Urine Glucose (UA) Negative (Negative) g/dL Urine Ketones Negative (NEGATIVE) Urine Occult Blood Trace-lysed (Negative) Urine Nitrate Negative (Negative) Urine Bilirubin Negative (NEGATIVE) Urine Urobilinogen 0.2 (0.2) E.U./dL Ur Leukocyte Esterase Negative (NEGATIVE) Urine RBC 0-1/hpf (0-5/HPF) Urine WBC 0-1/hpf (0-5/HPF) Ur Squamous Epith Cells 0-1 /hpf (0-5/HPF) Urine Bacteria None seen (None) Ur Culture Indicated? Cult not indicated Influenza A (RT-PCR) Flu a negative (NEGATIVE) Influenza B (RT-PCR) Flu b negative (NEGATIVE) 01/12/20 01/12/20 01/12/20 Range/Units 19:25 19:25 19:25 WBC 12.4 H (4.5-11.0) X10^3/uL RBC 4.10 L (4.5-5.9) X10^6/uL Hgb 13.2 L (13.5-17.5) g/dL Hct 38.4 L (41-53) % MCV 93.7 (80-100) fL MCH 32.2 (26-34) PG MCHC 34.3 (30-36) % RDW 13.5 (11.6-14.8) % Plt Count 189 (150-400) X10^3/uL Neut % (Auto) 88.9 H (50-75) % Lymph % (Auto) 2.4 L (25-40) % [place] % (Auto) 6.7 (3-14) % Eos % (Auto) 0.6 L (2-4) % Baso % (Auto) 1.4 (0-2) % Neut # (Auto) 37309 H (6638-8121) /uL Lymph # (Auto) 300 L (6064-4106) /uL [place] # (Auto) 800 (0-900) /uL Eos # (Auto) 100 (0-450) /uL Baso # (Auto) 200 H (0-100) /uL PT 18.0 H (10.1-12.7) SECONDS INR 1.6 H (0.9-1.3) APTT 33 (26.4-36.2) SECONDS Sodium (137-145) mmol/L Potassium (3.4-5.1) mmol/L Chloride (98-107) mmol/L Carbon Dioxide (22-32) mmol/L BUN (9-20) mg/dL Creatinine (0.66-1.25) mg/dL Estimated GFR (>60) mL/min BUN/Creatinine Ratio (6-22) Glucose (80-110) mg/dL Lactate (0.7-2.1) mmol/L Calcium (8.4-10.2) mg/dL Total Bilirubin (0.2-1.3) mg/dL AST (17-59) IU/L ALT (<50) IU/L Alkaline Phosphatase (38-126) U/L Total Creatine Kinase (55-170) U/L CK-MB (CK-2) (<2.37) ng/mL CK-MB (CK-2) Rel Index (1.5-5.0) % Troponin I (0.01-0.034) ng/mL C-Reactive Protein (<1.0) mg/dL NT-Pro-B Natriuret Pep (<450) pg/mL Total Protein (6.3-8.2) g/dL Albumin (3.5-5.0) g/dL Globulin (1.7-4.1) g/dL Albumin/Globulin Ratio (1.0-2.8) Procalcitonin 0.56 H (<0.5) ng/mL Urine Color Urine Appearance Urine pH (4.5-8.0) Ur Specific [place] (1.000-1.035) Urine Protein (Negative) Urine Glucose (UA) (Negative) g/dL Urine Ketones (NEGATIVE) Urine Occult Blood (Negative) Urine Nitrate (Negative) Urine Bilirubin (NEGATIVE) Urine Urobilinogen (0.2) E.U./dL Ur Leukocyte Esterase (NEGATIVE) Urine RBC (0-5/HPF) Urine WBC (0-5/HPF) Ur Squamous Epith Cells (0-5/HPF) Urine Bacteria (None) Ur Culture Indicated? Influenza A (RT-PCR) (NEGATIVE) Influenza B (RT-PCR) (NEGATIVE) 01/12/20 01/12/20 Range/Units 19:25 19:25 WBC (4.5-11.0) X10^3/uL RBC (4.5-5.9) X10^6/uL Hgb (13.5-17.5) g/dL Hct (41-53) % MCV (80-100) fL MCH (26-34) PG MCHC (30-36) % RDW (11.6-14.8) % Plt Count (150-400) X10^3/uL Neut % (Auto) (50-75) % Lymph % (Auto) (25-40) % [place] % (Auto) (3-14) % Eos % (Auto) (2-4) % Baso % (Auto) (0-2) % Neut # (Auto) (1921-5928) /uL Lymph # (Auto) (7012-3903) /uL [place] # (Auto) (0-900) /uL Eos # (Auto) (0-450) /uL Baso # (Auto) (0-100) /uL PT (10.1-12.7) SECONDS INR (0.9-1.3) APTT (26.4-36.2) SECONDS Sodium 135 L (137-145) mmol/L Potassium 4.0 (3.4-5.1) mmol/L Chloride 100 (98-107) mmol/L Carbon Dioxide 24 (22-32) mmol/L BUN 37 H (9-20) mg/dL Creatinine 1.49 H (0.66-1.25) mg/dL Estimated GFR 45.9 L (>60) mL/min BUN/Creatinine Ratio 24.8 H (6-22) Glucose 162 H (80-110) mg/dL Lactate 2.5 H (0.7-2.1) mmol/L Calcium 9.2 (8.4-10.2) mg/dL Total Bilirubin 0.5 (0.2-1.3) mg/dL AST 25 (17-59) IU/L ALT 21 (<50) IU/L Alkaline Phosphatase 75 (38-126) U/L Total Creatine Kinase (55-170) U/L CK-MB (CK-2) (<2.37) ng/mL CK-MB (CK-2) Rel Index (1.5-5.0) % Troponin I (0.01-0.034) ng/mL C-Reactive Protein (<1.0) mg/dL NT-Pro-B Natriuret Pep (<450) pg/mL Total Protein 8.0 (6.3-8.2) g/dL Albumin 4.4 (3.5-5.0) g/dL Globulin 3.6 (1.7-4.1) g/dL Albumin/Globulin Ratio 1.2 (1.0-2.8) Procalcitonin (<0.5) ng/mL Urine Color Urine Appearance Urine pH (4.5-8.0) Ur Specific [place] (1.000-1.035) Urine Protein (Negative) Urine Glucose (UA) (Negative) g/dL Urine Ketones (NEGATIVE) Urine Occult Blood (Negative) Urine Nitrate (Negative) Urine Bilirubin (NEGATIVE) Urine Urobilinogen (0.2) E.U./dL Ur Leukocyte Esterase (NEGATIVE) Urine RBC (0-5/HPF) Urine WBC (0-5/HPF) Ur Squamous Epith Cells (0-5/HPF) Urine Bacteria (None) Ur Culture Indicated? Influenza A (RT-PCR) (NEGATIVE) Influenza B (RT-PCR) (NEGATIVE) Imaging Data Chest x-ray: Radiologist's Impression: [address] [address] XRay Report Signed Patient: Leandro Allen [facility]#: [id number] : 3Acct:[id number] Age/Sex: 74 / MDate of Service: 01/12/20 Loc: ED Accession Number: [id number] Procedure: XR chest 1V Ordering Provider: Adriana Odell D.O. PROCEDURE: XR CHEST 1V INDICATIONS: fever, weakness, cough TECHNIQUE: One view of the chest was acquired. COMPARISON: CT, CT ANGIO CHEST, 10/01/2016, 11:38. [facility], CR, CHEST 1 VIEW, 10/11/2016, 13:56. FINDINGS: Surgical changes and devices: None. Lungs and pleura: Left greater than right bibasilar opacity. No pleural effusions or pneumothorax. Mediastinum: Mediastinal contours appear normal. Heart size is enlarged. Bones and chest wall: No suspicious bony lesions. Overlying soft tissues fern ear unremarkable. IMPRESSION: Left greater than right bibasilar opacity. This could be due to atelectasis, pneumonia, or aspiration. Cardiomegaly. Dictated by: Job Vargas M.D. on 01/12/2020 at 19:56 Approved by: Job Vargas M.D. on 01/12/2020 at 19:59 ECG Data Attestation: I personally reviewed and interpreted this ECG as follows: Prior ECG tracings: available for review Interpretation: Rhythm appears sinus although T-waves may show a prolonged IN or may be absent. Rate is 81, appears regular but no clear P-waves with every beat. QRS is 134 the QTC of 455. Patient has RSR in V1 V2 V3 and has some flattening of T-wave in 5 in 6, no elevation and otherwise ST segments do appears similar to priors. [facility] Narrative Medical decision making narrative: Patient comes in with fever, some alteration in mental status. Chest x-ray does show some suspicious changes for pneumonia, patient has an elevated white count mildly elevated procalcitonin making a bacterial infection more likely but influenza swab was performed is negative, mercedes virus was also included and is pending for the next several days. Patient has a leukocytosis that is neutrophil predominant, he has chronic kidney disease but appears to be at baseline with no major electrolyte abnormalities, troponin is negative. No LFT abnormalities C-reactive protein is 1.4. UA is negative. Patient does not meet septic criteria at this time. Patient is 91% on room air but not tachypneic, on recheck he is occasionally dips to 90%. He had a L fluids the 30 cc/kilos bolus was not started as patient did meet septic criteria and with his cardiac history is at high risk for fluid overload. Plan for admission as he has been increasingly weak with sign and pneumonia. He is in contact precautions. And Rocephin was ordered to cover for pneumonia. Spoke with [employer] Leandro Jerome who accepts plan for inpatient admission. Discussed with patient and he is aware and comfortable with the plan. was also updated by nursing. Discharge Plan Departure Patient Disposition: Admitted As Inpatient Clinical Impression: Pneumonia Referrals: Robbie Mccullough MD [Primary Care Provider] - Admit Date/Time: 01/12/20 20:43 Admit Provider: Latrell Jerome
[2020-01-12 19:35] LABS: Bacteria Urine None Seen
[2020-01-12 19:37] LABS: Appearance Urine UA CLEAR; Bilirubin Urine UA NEGATIVE (NEGATIVE); Color Urine UA YELLOW; Glucose Urine UA NEGATIVE (Negative); Ketones Urine UA NEGATIVE (NEGATIVE); Leukocyte Esterase Urine UA NEGATIVE (NEGATIVE); Nitrite Urine UA NEGATIVE (Negative); Occult Blood Urine UA TRACE-LYSED (Negative); Protein Urine UA NEGATIVE (Negative); Urobilinogen Urine UA 0.2 E.U./dL (0.2)
[2020-01-12] MEDS: ACETAMINOPHEN 325 MG TABLET 650 MG PO (19:41)
[2020-01-12 19:42] LABS: Add Manual Diff / Slide Review NO; Basophils Absolute Auto 200 /uL (0-100); Basophils Percent Auto 1.4 % (0-2); Eosinophils Absolute Auto 100 /uL (0-450); Eosinophils Percent Auto 0.6 % (2-4); Hematocrit 38.4 % (41-53); Hemoglobin 13.2 g/dL (13.5-17.5); Lymphocytes Absolute Auto 300 /uL (1100-4500); Lymphocytes Percent Auto 2.4 % (25-40); Mean Corpuscular HGB Conc 34.3 % (30-36); Mean Corpuscular Hemoglobin 32.2 PG (26-34); Mean Corpuscular Volume 93.7 fL (80-100); Monocytes Absolute Auto 800 /uL (0-900); Monocytes Percent Auto 6.7 % (3-14); Neutrophils Absolute Auto 11000 /uL (1500-7000); Neutrophils Percent Auto 88.9 % (50-75); Platelet Count 189 X10^3/uL (150-400); Red Cell Distribution Width 13.5 % (11.6-14.8); White Blood Cell Count 12.4 X10^3/uL (4.5-11.0)
[2020-01-12] MEDS: SODIUM CHLORIDE 0.9% 1,000 ML 1000 ML IV (19:42)
[2020-01-12 19:45] LABS: Culture Indicated Urine Cult Not Indicated; RBC Urine 0-1/HPF (0-5/HPF); Squamous Epithelial Cell Urine 0-1 /HPF (0-5/HPF); WBC Urine 0-1/HPF (0-5/HPF)
[2020-01-12 19:53] LABS: INR 1.6 (0.9-1.3)
[2020-01-12 19:55] VITALS: BP 139/58; PULSE 80; RESP 22; TEMP 37.4; O2SAT 91; BMI 36.0
[2020-01-12 19:55] LABS: PTT Partial Thromboplastin Tim 33 SECONDS (26.4-36.2)
[2020-01-12 19:56] LABS: Creatine Kinase 107 U/L (55-170)
[2020-01-12 19:58] LABS: Alanine Aminotransferase 21 IU/L (<50); Albumin 4.4 g/dL (3.5-5.0); Albumin Globulin Ratio 1.2 (1.0-2.8); Alkaline Phosphatase 75 U/L (38-126); Aspartate Aminotransferase 25 IU/L (17-59); BUN Creatinine Ratio 24.8 (6-22); Bilirubin Total 0.5 mg/dL (0.2-1.3); Blood Urea Nitrogen 37 mg/dL (9-20); Calcium 9.2 mg/dL (8.4-10.2); Carbon Dioxide 24 mmol/L (22-32); Chloride 100 mmol/L (98-107); Estimated Glomerular Filt Rate 45.9 mL/min (>60); Globulin 3.6 g/dL (1.7-4.1); Glucose 162 mg/dL (80-110); HEMOLYSIS < 15 (0-50); Lactate (Lactic Acid) 2.5 mmol/L (0.7-2.1); Sodium 135 mmol/L (137-145)
[2020-01-12 20:09] LABS: NT-proBNP (BNP-Adult 18+) 330 pg/mL (<450); Troponin I < 0.012 ng/mL (0.01-0.034)
[2020-01-12 20:11] LABS: Creatine Kinase MB 1.07 ng/mL (<2.37)
[2020-01-12] MEDS: ALBUTEROL HFA 60 PUFF/8 GM INH INH (20:11)
[2020-01-12 20:12] VITALS: PULSE 80; RESP 20; O2SAT 92
[2020-01-12 20:13] LABS: C-Reactive Protein Quant 1.4 mg/dL (<1.0)
[2020-01-12 20:14] LABS: Influenza A - CEPHEID Flu A NEGATIVE (NEGATIVE); Influenza B - CEPHEID Flu B NEGATIVE (NEGATIVE)
[2020-01-12 20:22] LABS: Procalcitonin 0.56 ng/mL (<0.5)
[2020-01-12 20:30] VITALS: BP 124/60; PULSE 81; RESP 20; O2SAT 91
[2020-01-12] MEDS: CEFTRIAXONE 2 GM/50 ML FROZ.PIGGY IV (20:45)
--- NOTE | 2020-01-12 21:22 | P.HP_ITS ---
History of Present Illness History of Present Illness Date Patient Seen: 01/12/20 Time Patient Seen: 22:08 Date of Onset of Symptoms: 01/11/20 Chief complaint: Fever, N/V decreased LOC Narrative: Mr. Leandro Allen is a 74-year-old male with history significant for a history of hypertension, atrial flutter anticoagulated on Xarelto, type 2 diabetes that is diet controlled, COPD, asthma, obstructive sleep apnea, GERD, diverticulosis, adenomas of colon and bladder tumor who presents to the hospital for a fever for 1 day the patient states he began having symptoms of fever yesterday and today developed nausea and vomiting with generalized weakness. He has had associated symptoms of intermittent dizziness with some wheezing and increased symptoms of reflux. Patient has a history of COPD and asthma and has had a chronic cough without change in sputum or character. He reports having no recent sick contacts and in fact states that he has been ?holed up for the last several days. His family provides the history that he had the flu early November and has not quite returned to baseline since. He denies headaches or visual changes, nasal congestion or sore throat. He has had no chest pain or palpitations. He denies shortness of breath and reports exercising daily on a treadmill. He has had no abdominal pain, constipation or diarrhea. Denies urinary symptoms and has nocturia 2-3 times daily. He is normally independent in activities of daily living. Upon arrival to the ER has a temperature of 99.3?, heart rate of 80, blood pressure 139/58, respiratory rate of 22 saturating 91% on room air. On imaging is checks x-ray reveals left greater than right bibasilar opacities and enlarged heart silhouette. On 12 lead EKG is sinus rhythm with a right bundle branch block and left anterior fascicular block. On laboratory analysis his elevated white count at 12.4, hemoglobin 13.2, hematocrit 38.4 and platelets of 118. He has an increased neutrophil count 89%. On chemistries is electrolytes are within normal range and he has a BUN of 37 and creatinine 1.49 for an EGFR of 45.9. His nonfasting glucose is 162. His liver functions are all within normal range. He has a total CK of 1057, MBs of 1.07, an index of 1.0%. His troponin is less than 0.012 and has a BNP of 330. On coagulation he has a PT of 18, INR 1 .6, PTT of 33. He has a CRP of 1.4 and a procalcitonin 0.56 with a lactic acid of 2.5. He respiratory panel and COVID-19 screening are pending. In the ER the patient received normal saline 1 L, Tylenol, albuterol treatments and was started on Rocephin 2 g IV. The patient is admitted to the medicine service for pneumonia. Patient History Medical History (Updated 01/12/20 @ 22:20 by GUALBERTO Cortes) Asthma (Inactive 11/04/11) Atrial flutter (03/20/17) Benign prostatic hyperplasia (11/04/11) Body mass index (BMI) of 30.0 to 39.9 (10/27/11) Controlled type 2 diabetes mellitus (10/03/16) Diverticulosis of sigmoid colon (03/20/17) Essential hypertension (Inactive 10/27/11) Gastroesophageal reflux disease (03/01/14) Hyperlipidemia (Inactive 10/27/11) Malignant neoplasm of urinary bladder (10/11/16) Tubular adenoma of colon (03/20/17) Surgical History (Updated 01/12/20 @ 22:20 by GUALBERTO Cortes) History of cardiac radiofrequency ablation (Acute) History of cystoscopy Family & Social History Family History (Updated 01/12/20 @ 22:20 by GUALBERTO Cortes) Father CAD (coronary artery disease) Hyperlipidemia Hypertension Mother CAD (coronary artery disease) Hypertension Hyperlipidemia Safety & Behavioral: Feels Safe in Current Yes Environment Been Physically Hurt or No Threatened By a Person Tobacco & Substance use: Smoking Status Never smoker alcohol intake frequency 0-2 drinks per day Substance Use Type does not use Comment: Patient lives in a single family home with his to whom he has been for 52 years and his niece. He states both his mother in the [facility] father coronary artery disease with hypertension hyperlipidemia consuming meat daily. He is an only child and has no children. 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 Alcohol: Patient endorses consuming 1 glass of wine monthly. Substance use: The patient denies recreational pharmaceuticals herbal or cannabis products. Advanced directives: Patient states he has formal advanced directives. His wishes to be FULL CODE. He designates his to be his surrogate decision maker. [facility] Home Medications and Allergies Home Medications Medication Instructions Recorded Confirmed Type magnesium oxide 1 tab PO Q DAY #0 07/31/16 04/18/19 History metoprolol succinate [Toprol XL] 25 mg PO DAILY #0 07/31/16 01/12/20 History tamsulosin [Flomax] 0.8 mg PO 1730 #60 cap 10/14/16 04/18/19 Rx lovastatin 40 mg PO Q DAY #90 tab 03/04/17 01/12/20 Rx omeprazole 20 mg PO QDAY #90 cap 03/04/17 04/18/19 Rx testosterone cypionate 1.5 ml IM [id number] #0 04/08/17 04/18/19 History [Depo-Testosterone] potassium chloride [Klor-Con M20] 20 meq PO AMCC #90 tab 05/27/17 04/18/19 Rx enalapril maleate 5 mg PO QDAY #90 tab 08/03/17 01/12/20 Rx blood sugar diagnostic #100 each 04/23/18 04/18/19 Rx amiodarone 200 mg tablet 200 mg PO DAILY 04/18/19 01/12/20 History liothyronine 5 mcg tablet 10 mcg PO DAILY tab 04/18/19 01/12/20 History rivaroxaban 20 mg tablet 20 mg PO DAILY 04/18/19 01/12/20 History levothyroxine 75 mcg PO DAILY 01/12/20 01/12/20 History metoprolol succinate 12.5 mg PO BEDTIME 01/12/20 01/12/20 History triamterene-hydrochlorothiazid 1 cap PO DAILY 01/12/20 01/12/20 History Allergies Allergy/AdvReac Type Severity Reaction Status Date / Time latex Allergy Verified 01/12/20 21:37 Review of Systems Review of Systems ROS: Yes All systems reviewed with the patient and are negative except as otherwise documented Exam Vital Signs (past 8 hours): - 01/12/20 19:55 01/12/20 20:12 01/12/20 20:30 Temperature 99.3 F Pulse Rate 80 80 81 Respiratory Rate 22 20 20 Blood Pressure 139/58 L Blood Pressure [Left Arm] 124/60 Pulse Oximetry 91 92 91 Oxygen Delivery Method Room Air Narrative Exam Narrative: GENERAL APPEARANCE: well developed, obese male with a BMI of 37.6 resting semi recumbent on structure in no acute distress. HEENT: Normocephalic, PERRLA, sclera is anicteric and conjunctiva clear, EOMs intact without nystagmus, no sinus tenderness to percussion, no rhinorrhea, mucous membranes are moist and pink without lesions or exudate. NECK/THYROID: neck supple, short thick neck, no visible JVD, no thyromegaly, trachea midline. LYMPH NODES: no cervical or supraclavicular lymphadenopathy. SKIN: [place], warm and dry, no visible lesions, rashes, ulcerations or petechiae. HEART: regular rate and rhythm, S1-S2, no murmur, no rubs or gallops, brisk cap illary refill, 1+ lower extremity edema LUNGS: Diminished breath sounds bibasilar, no coarseness crackles or wheezing, no cough present CHEST: Symmetrical movement, no accessory muscle use, good tidal volume, speaking in full sentences. ABDOMEN: Firm, dull to percussion, no abdominal tenderness, no guarding or peritoneal signs, no organomegaly, no flank or suprapubic tenderness, active bowel tones. EXTREMITIES: moves all extremities, strength is 5/5 and symmetrical, no deformities or joint effusions, no back pain with straight leg raise. NEUROLOGIC: AAO x4, impaired memory, cranial nerves II-XII grossly intact, sensation intact to light touch, hearing grossly normal to speech. PSYCH: Good eye contact, cooperative, appropriate with stable behavior Objective Labs Result Diagrams: 01/12/20 19:25 01/12/20 19:25 Labs: Laboratory Results - last 24 hr 01/12/20 01/12/20 01/12/20 19:16 19:25 19:25 WBC RBC Hgb Hct MCV MCH MCHC RDW Plt Count Neut % (Auto) Lymph % (Auto) [place] % (Auto) Eos % (Auto) Baso % (Auto) Neut # (Auto) Lymph # (Auto) [place] # (Auto) Eos # (Auto) Baso # (Auto) PT INR APTT Sodium Potassium Chloride Carbon Dioxide BUN Creatinine Estimated GFR BUN/Creatinine Ratio Glucose Lactate Calcium Total Bilirubin AST ALT Alkaline Phosphatase Total Creatine Kinase 107 CK-MB (CK-2) 1.07 CK-MB (CK-2) Rel Index 1.0 L Troponin I < 0.012 C-Reactive Protein 1.4 H NT-Pro-B Natriuret Pep 330 Total Protein Albumin Globulin Albumin/Globulin Ratio Procalcitonin Urine Color Yellow Urine Appearance Clear Urine pH 5.0 Ur Specific [place] 1.020 Urine Protein Negative Urine Glucose (UA) Negative Urine Ketones Negative Urine Occult Blood Trace-lysed Urine Nitrate Negative Urine Bilirubin Negative Urine Urobilinogen 0.2 Ur Leukocyte Esterase Negative Urine RBC 0-1/hpf Urine WBC 0-1/hpf Ur Squamous Epith Cells 0-1 /hpf Urine Bacteria None seen Ur Culture Indicated? Cult not indicated Influenza A (RT-PCR) Flu a negative Influenza B (RT-PCR) Flu b negative 01/12/20 01/12/20 01/12/20 19:25 19:25 19:25 WBC 12.4 H RBC 4.10 L Hgb 13.2 L Hct 38.4 L MCV 93.7 MCH 32.2 MCHC 34.3 RDW 13.5 Plt Count 189 Neut % (Auto) 88.9 H Lymph % (Auto) 2.4 L [place] % (Auto) 6.7 Eos % (Auto) 0.6 L Baso % (Auto) 1.4 Neut # (Auto) 87269 H Lymph # (Auto) 300 L [place] # (Auto) 800 Eos # (Auto) 100 Baso # (Auto) 200 H PT 18.0 H INR 1.6 H APTT 33 Sodium Potassium Chloride Carbon Dioxide BUN Creatinine Estimated GFR BUN/Creatinine Ratio Glucose Lactate Calcium Total Bilirubin AST ALT Alkaline Phosphatase Total Creatine Kinase CK-MB (CK-2) CK-MB (CK-2) Rel Index Troponin I C-Reactive Protein NT-Pro-B Natriuret Pep Total Protein Albumin Globulin Albumin/Globulin Ratio Procalcitonin 0.56 H Urine Color Urine Appearance Urine pH Ur Specific [place] Urine Protein Urine Glucose (UA) Urine Ketones Urine Occult Blood Urine Nitrate Urine Bilirubin Urine Urobilinogen Ur Leukocyte Esterase Urine RBC Urine WBC Ur Squamous Epith Cells Urine Bacteria Ur Culture Indicated? Influenza A (RT-PCR) Influenza B (RT-PCR) 01/12/20 01/12/20 19:25 19:25 WBC RBC Hgb Hct MCV MCH MCHC RDW Plt Count Neut % (Auto) Lymph % (Auto) [place] % (Auto) Eos % (Auto) Baso % (Auto) Neut # (Auto) Lymph # (Auto) [place] # (Auto) Eos # (Auto) Baso # (Auto) PT INR APTT Sodium 135 L Potassium 4.0 Chloride 100 Carbon Dioxide 24 BUN 37 H Creatinine 1.49 H Estimated GFR 45.9 L BUN/Creatinine Ratio 24.8 H Glucose 162 H Lactate 2.5 H Calcium 9.2 Total Bilirubin 0.5 AST 25 ALT 21 Alkaline Phosphatase 75 Total Creatine Kinase CK-MB (CK-2) CK-MB (CK-2) Rel Index Troponin I C-Reactive Protein NT-Pro-B Natriuret Pep Total Protein 8.0 Albumin 4.4 Globulin 3.6 Albumin/Globulin Ratio 1.2 Procalcitonin Urine Color Urine Appearance Urine pH Ur Specific [place] Urine Protein Urine Glucose (UA) Urine Ketones Urine Occult Blood Urine Nitrate Urine Bilirubin Urine Urobilinogen Ur Leukocyte Esterase Urine RBC Urine WBC Ur Squamous Epith Cells Urine Bacteria Ur Culture Indicated? Influenza A (RT-PCR) Influenza B (RT-PCR) Assessment & Plan Assessment & Plan narrative: 1. Community-acquired pneumonia, likely bacterial, acute, present on admission, active. -Patient with fevers for 1 day developing nausea vomiting today. No recent sick contacts, per family patient has been remaining at home. -Upon arrival the patient has a respiratory rate of 22 with an oxygen saturation at 91 on room air with a PF ratio of 295. -Chest x-ray reveals bibasilar opacities left greater than right. The patient scores 116 on the pneumonia severity index. -Patient has elevated white count at 12.4, procalcitonin 0.56, CRP of 1.4 and a lactic acid of 2.5. -Patient is negative for flu A/B, full respiratory PCR is negative. COVID-19 result is pending. -Patient started on ceftriaxone 2 g IV in the ER, ordered azithromycin 500 mg daily for 3 days. -Patient is placed in contact and droplet isolation. -Will follow CBC and procalcitonin. 2. Chronic obstructive pulmonary disease, restrictive, present on admission, active. -Patient reports being a nonsmoker and not exposed to secondhand smoke or asbestos having previously worked as a [employer]. -Patient underwent PFT on 04/19/2019 for bronchitis: Decreased FVC at 2.81-7 5% of predicted and FEV1 was 1.93 L at 73% of predicted with a ratio of 69 which is 95% predicted. No change with bronchodilator decreased diffusion capacity at 63% of predicted. -Patient with chronic dry nonproductive cough. Diminished breath sounds without coarseness, crackles wheezing following albuterol treatments. -Respiratory therapy to consult, evaluate and treat. -Albuterol/Atrovent MDI inhaler with spacer 2 puffs twice daily. -Albuterol MDI inhaler with spacer 2 puffs every 4 hours as needed. 3. Diabetes type 2, diet controlled with hyperglycemia, chronic, present on admission, active. -Patient follows with a lithograph designer in [place] on [facility]. -He is on no diabetic medications in uses various herbal supplements that he cannot recall. -Blood sugar on admission is 162. Will obtain Accu-Cheks AC and HS. -Ordered low-dose correctional insulin.. -ordered hemoglobin A1c. 4. Chronic kidney disease stage 3, present on admission, stable. -Patient presents with a BUN of 37 and creatinine 1.49 on admission labs, creatinine is stable with last creatinine of 1.50 on 07/19/2019. -Will avoid renal toxic agents and renal dose medications as indicated. -Will follow renal function on chemistries. 5. Paroxysmal atrial arrhythmia, history of a flutter, chronic, stable. -The patient denies complaints of chest pain or palpitations. -Twelve lead EKG finds sinus rhythm with a right bundle branch block and left anterior fascicular block without ST or T-wave changes. -Continue anticoagulated on Xarelto 20 mg daily -Continue home regimen of amiodarone 200 mg daily, metoprolol succinate 25 mg in the morning and 12.5 mg at night. 6. Essential hypertension, chronic, stable. -Blood pressure is adequately controlled a blood pressure 139/58 upon arrival to the ER. -Will continue patient's home regimen of metoprolol 25 mg in the morning and 12.5 mg at night and triamterene hydrochlorothiazide 37.5/25 daily. 7. Dyslipidemia, chronic, stable. Will continue patient's home regimen of lovastatin 40 mg daily. VTE prophylaxis: SCDs, patient is on Xarelto IV fluid: Normal saline 75 mL per hour. Diet: Medium constant carbohydrate, heart healthy. Code status: FULL CODE. The patient is admitted to the hospital with pneumonia in the setting of COPD and evaluation for COVID-19. The patient is admitted as inpatient based on his PSI of 116 with expected length of stay to be greater than 2 midnights. Scores GCS [place] coma scale eye opening: Spontaneous [place] coma scale verbal response: Orientated Maria De Jesus coma scale motor response: Obey commands [place] coma scale total score: 15 SOFA PaO2/FIO2: < 300 mmHg Platelets: >= 150 Bilirubin: < 1.2 mg/dL Hypotension: MAP >= 70 mmHg [place] Coma Scale: 15 Renal: Creatinine 1.2-1.9 mg/dL SOFA Score: 3
[2020-01-12 21:37] LABS: Magnesium 1.8 mg/dL (1.6-2.3); Reflexed Lactate in 2 Hours Y
[2020-01-12 21:51] LABS: Hemoglobin A1C% w Est Avg Glu 6.4 % (4.0-6.0)
[2020-01-12 22:13] VITALS: BP 122/58; PULSE 86; O2SAT 93
[2020-01-12 22:41] LABS: Lactate 2HR (Lactic Acid Rflx) 2.4 mmol/L (0.7-2.1)
[2020-01-12 22:56] VITALS: BMI 37.6
[2020-01-12 22:56] LABS: Adenovirus Not Detected (Not Detect); Coronavirus 229E Not Detected (Not Detect); Coronavirus HKU1 Not Detected (Not Detect); Coronavirus NL 63 Not Detected (Not Detect); Coronavirus OC43 Not Detected (Not Detect)
[2020-01-12 22:57] LABS: Bordetella pertussis Not Detected (Not Detect); Chlamydophila pneumoniae Not Detected (Not Detect); Human Metapneumovirus Not Detected (Not Detect); Human Rhinovirus/Enterovirus Not Detected (Not Detect); Influenza A Not Detected (Not Detect); Influenza B Not Detected (Not Detect); Mycoplasma pneumoniae Not Detected (Not Detect); Parainfluenza Virus 1 Not Detected (Not Detect); Parainfluenza Virus 2 Not Detected (Not Detect); Parainfluenza Virus 3 Not Detected (Not Detect); Parainfluenza Virus 4 Not Detected (Not Detect); Respiratory Syncytial Virus Not Detected (Not Detect)
[2020-01-12] MEDS: SODIUM CHLORIDE 0.9% 1,000 ML 75 ML IV (23:00)
--- NOTE | 2020-01-12 23:10 | PC.NURSE ---
2230 - Pt to room from ER. Transfer via slider board. Pt denies pain. Denies SOB, appearance of mild SOB with activity. Laying flat. Pt denies nausea. Denies recent emesis. Requesting food. Oriented to room and routine. Pt with 2 med lists from home, 06/2019, 07/2019 pt requesting that I call his and ask her to bring updated list in a.m. Call placed to Loli, she will drop of list in a.m. Call light in reach. Bed alarm on.
[2020-01-13] VITALS (11 sets, daily range): BP systolic 114–134; BP diastolic 58–70; PULSE 64–98; RESP 16–20; TEMP 36.8–37.6; O2SAT 91–97; BMI 37.9
[2020-01-13] MEDS: METOPROLOL ER 25 MG TABLET 12.5 MG PO ×2 (00:30→21:38)
[2020-01-13] MEDS: AZITHROMYCIN 500 MG in DEXTROSE 5% IN WATER 250 ML IV (00:30)
[2020-01-13] MEDS: ONDANSETRON 4 MG/2 ML INJ IV (03:05)
--- NOTE | 2020-01-13 03:56 | PC.NURSE ---
NOC Note: At 0310 Pt desated to 87% while sleeping, placed on 3L NC to get O2 92-93%. Pt then began to retch with only a small amount of frothy sputum out. PRN Zofran given. pt is a poor historian and forgetful. SOB with any exertion. 2PA with bed mobility.
[2020-01-13 06:01] LABS: Add Manual Diff / Slide Review NO; Basophils Absolute Auto 0 /uL (0-100); Basophils Percent Auto 0.3 % (0-2); Eosinophils Absolute Auto 0 /uL (0-450); Eosinophils Percent Auto 0.1 % (2-4); Hematocrit 35.4 % (41-53); Hemoglobin 12.2 g/dL (13.5-17.5); Lymphocytes Absolute Auto 200 /uL (1100-4500); Lymphocytes Percent Auto 1.6 % (25-40); Mean Corpuscular HGB Conc 34.5 % (30-36); Mean Corpuscular Hemoglobin 32.4 PG (26-34); Mean Corpuscular Volume 94.1 fL (80-100); Monocytes Absolute Auto 1000 /uL (0-900); Monocytes Percent Auto 8.4 % (3-14); Neutrophils Absolute Auto 11000 /uL (1500-7000); Neutrophils Percent Auto 89.6 % (50-75); Platelet Count 161 X10^3/uL (150-400); Red Blood Cell Count 3.76 X10^6/uL (4.5-5.9); Red Cell Distribution Width 13.5 % (11.6-14.8); White Blood Cell Count 12.3 X10^3/uL (4.5-11.0)
[2020-01-13 06:02] LABS: BUN Creatinine Ratio 25.5 (6-22); Blood Urea Nitrogen 36 mg/dL (9-20); Calcium 8.4 mg/dL (8.4-10.2); Carbon Dioxide 25 mmol/L (22-32); Chloride 102 mmol/L (98-107); Estimated Glomerular Filt Rate 48.9 mL/min (>60); Glucose 223 mg/dL (80-110); HEMOLYSIS 16 (0-50); Potassium 3.8 mmol/L (3.4-5.1); Sodium 134 mmol/L (137-145)
[2020-01-13] MEDS: guaiFENesin ER 600 MG TAB 1200 MG PO ×2 (08:33→21:36)
[2020-01-13] MEDS: BENZOCAINE/MENTHOL 1 LOZ PKT 1 EACH PO (08:33)
[2020-01-13] MEDS: BENZONATATE 100 MG CAPSULE PO (08:33)
[2020-01-13] MEDS: PANTOPRAZOLE 40 MG VIAL IV (08:33)
[2020-01-13] MEDS: METOPROLOL ER 25 MG TABLET PO (08:33)
[2020-01-13] MEDS: RIVAROXABAN 10 MG TABLET 20 MG PO (08:33)
[2020-01-13] MEDS: LEVOTHYROXINE 75 MCG TABLET PO (09:09)
[2020-01-13] MEDS: AMIODARONE 200 MG TABLET PO (09:09)
[2020-01-13] MEDS: INSULIN ASPART 100 UNIT/ML INSULN PEN SUBCUT ×3 (09:09→16:29)
[2020-01-13] MEDS: ENALAPRIL 5 MG TABLET PO (09:09)
[2020-01-13] MEDS: TRIAMTERENE/HCTZ 37.5/25 TABLET 1 CAP PO (09:10)
[2020-01-13] MEDS: LIOTHYRONINE 5 MCG TABLET 10 MCG PO (09:10)
--- NOTE | 2020-01-13 09:19 | CM.DANOTE ---
Discharge Planning/Care Management DCP:assessment: case received, EMR reviewed. Specialized Contact Precautions: Noted: pt is on a COVID-19 rule out in setting of admission for pneumonia and chronic COPD and asthma. Pt is a 74 year old male who admitted last night to care of hospitalist team. PCP: Dr. Mccullough Payer[facility] Medicare [facility] Admission status: in review: per UR NIRAJ Ro Information re pt's prior level of function as known thus far is noted below in the DCP Assessment template. P: DCP team will be following as POC unfolds to assist with d/c issues and options. Will plan to reach out to pt's Loli: H [phone] or [phone] after Team Rounds. CM Discharge Assessment Start: 01/13/20 09:18 Freq: Status: Active Protocol: Document 01/13/20 09:18 ITV (Rec: 01/13/20 09:19 ITV [id number]) Discharge Planning Assessment Advance Directives? No History Provided By Medical Record Prior Living Arrangements House Household Members spouse,family Comment lives with Loli and niece . Independent with ADL's Yes Is patient alert and oriented? Yes Comment walks on treadmill daily. Review Status In Process
[2020-01-13 09:53] LABS: Acinetobacter baumannii Not Detected (Not Detect); E. coli Detected (Not Detect); Enterobacter cloacae complex Not Detected (Not Detect); Enterobacteriaceae species Detected (Not Detect); Enterococcus species Not Detected (Not Detect); KPC (carbapenem-resist gene) Not Detected (Not Detect); Listeria monocytogenes Not Detected (Not Detect); Proteus species Not Detected (Not Detect); Staphylococcus species Not Detected (Not Detect); Streptococcus agalactiae (Gr B Not Detected (Not Detect); Streptococcus pneumonia Not Detected (Not Detect); Streptococcus pyogenes (Gr A) Not Detected (Not Detect); Streptococcus species Not Detected (Not Detect)
[2020-01-13 09:54] LABS: Candida albicans Not Detected (Not Detect); Candida glabrata Not Detected (Not Detect); Candida krusei Not Detected (Not Detect); Candida parapsilosis Not Detected (Not Detect); Candida tropicalis Not Detected (Not Detect); Haemophilus influenzae Not Detected (Not Detect); Neisseria meningitidis Not Detected (Not Detect); Pseudomonas aeruginosa Not Detected (Not Detect); Serratia marcescens Not Detected (Not Detect)
[2020-01-13] MEDS: SODIUM CHLORIDE 0.9% 1,000 ML 75 ML IV (11:29)
--- NOTE | 2020-01-13 13:27 | P.PN_ITS ---
Subjective Subjective Date Patient Seen: 01/13/20 Interval history: Leandro Allen is a 74-year-old male with a past medical history significant for hypertension, hyperlipidemia, paroxysmal atrial fibrillation/flutter status post ablation and on Xarelto, diabetes mellitus type 2, non-insulin using and diet controlled, COPD/asthma, obstructive sleep apnea on CPAP, GERD, and bladder tumor status post resection who presented with fever, nausea, vomiting and generalized weakness. The patient is resting comfortably in bedside chair. He denies any upper or lower respiratory symptoms including: Nasal congestion, rhinitis, sore throat, ear pain, pulmonary congestion or cough worse than his usual chronic intermittent productive cough. He continues to have intermittent nausea that readily and spontaneously resolves. He has a history of acid reflux but denies any abdominal colic or pre or postprandial pain. He has a normal appetite. He endorses flank pain but this was not appreciated on physical exam. His blood cultures are positive for E coli with sensitivities pending. His urinalysis does not appear infected. He has a history of bladder tumor status post resection. Plan for CT abdomen and pelvis with contrast to assess for intra- abdominal source of infection. He denies chest pain, abdominal pain, fever, chills, dysuria, or constipation. He does endorse soft stools but denies diarrhea. He is voiding and eliminating without difficulty. He is up ambulating without assistance. Exam Vital Signs (past 8 hours): - 01/13/20 06:00 01/13/20 08:30 01/13/20 09:34 Temperature 99.2 F 98.4 F Pulse Rate 85 77 74 Respiratory Rate 18 17 20 Blood Pressure 133/66 134/67 Pulse Oximetry 91 95 93 01/13/20 11:26 Temperature 98.3 F Pulse Rate 71 Respiratory Rate 20 Blood Pressure 130/60 Pulse Oximetry 95 Oxygen Delivery Method Room Air Oxygen Flow Rate 0 Narrative Exam Narrative: General: Older male sitting in bedside chair and in no acute distress, well- developed, well-nourished, appropriately interactive. HEENT: Normocephalic, atraumatic. External ears without defect. Pupils equal, round, and reactive to light. Anicteric sclerae, moist conjunctivae, and no lid lag. Oropharynx free of erythema and cobble stoning with moist mucosa. Neck: Supple with full range of motion. No jugular venous distension. No lymphadenopathy or thyromegaly. Cardiovascular: Regular rate and rhythm without murmurs, rubs, or gallops appreciated. Pulmonary: Clear to auscultation bilaterally without crackles, wheezes, or rhonchi. Normal respiratory effort with no use of accessory muscles. Abdomen: Soft, obese, bowel sounds present, non-tender, non-distended. No CVA or suprapubic tenderness. No hepatosplenomegaly or masses appreciated. Extremities: No clubbing, cyanosis, or edema. Skin: Normal temperature, turgor, and texture; no rash, ulcers, or subcutaneous nodules appreciated. Neurological: Cranial nerves grossly intact. Psychiatric: Normal mood and affect. Alert and oriented to person, place, and time. Possible mild cognitive impairment with short-term memory recall deficit. Objective Labs Result Diagrams: 01/13/20 05:32 01/13/20 05:32 Labs: Laboratory Results - last 24 hr 01/12/20 01/12/20 01/12/20 19:16 19:25 19:25 WBC RBC Hgb Hct MCV MCH MCHC RDW Plt Count Neut % (Auto) Lymph % (Auto) Long % (Auto) Eos % (Auto) Baso % (Auto) Neut # (Auto) Lymph # (Auto) Long # (Auto) Eos # (Auto) Baso # (Auto) PT INR APTT Sodium Potassium Chloride Carbon Dioxide BUN Creatinine Estimated GFR BUN/Creatinine Ratio Glucose Hemoglobin A1c Lactate Calcium Magnesium Total Bilirubin AST ALT Alkaline Phosphatase Total Creatine Kinase 107 CK-MB (CK-2) 1.07 CK-MB (CK-2) Rel Index 1.0 L Troponin I < 0.012 C-Reactive Protein 1.4 H NT-Pro-B Natriuret Pep 330 Total Protein Albumin Globulin Albumin/Globulin Ratio Procalcitonin Urine Color Yellow Urine Appearance Clear Urine pH 5.0 Ur Specific [place] 1.020 Urine Protein Negative Urine Glucose (UA) Negative Urine Ketones Negative Urine Occult Blood Trace-lysed Urine Nitrate Negative Urine Bilirubin Negative Urine Urobilinogen 0.2 Ur Leukocyte Esterase Negative Urine RBC 0-1/hpf Urine WBC 0-1/hpf Ur Squamous Epith Cells 0-1 /hpf Urine Bacteria None seen Ur Culture Indicated? Cult not indicated Nasal Screen MRSA (PCR) A. baumannii (PCR) Chlamy pneumoniae PCR Adenovirus (PCR) B.parapertussis DNA PCR Marilee albicans (PCR) C. glabrata (PCR) C. krusei (PCR) C. parapsilosis (PCR) C. tropicalis (PCR) Coronavirus OC43 (PCR) Coronavirus HKU1 (PCR) Coronavirus 229E (PCR) Coronavirus NL63 (PCR) Enterobacteriac sp PCR E. cloacae complex PCR Enterococcus sp PCR E. coli (PCR) H. influenzae (PCR) Human Metapneumovir PCR Influenza A (RT-PCR) Flu a negative Influenza Type A (PCR) Influenza B (RT-PCR) Flu b negative Influenza Type B (PCR) Klebsiella oxytoca PCR Klebsiella pneumoniae List. monocytogenes PCR M. pneumoniae (PCR) N. meningitidis (PCR) Parainfluenza 1 (PCR) Parainfluenza 2 (PCR) Parainfluenza 3 (PCR) Parainfluenza 4 (PCR) Proteus species (PCR) RSV (PCR) Entero/Rhino (PCR) Serratia marcescens PCR Staphylococcus sp PCR Staph aureus (PCR) mecA-Methicil Res Gene Streptococcus sp PCR Group A Strep (PCR) Strep agalactiae (PCR) Strep pneumoniae (PCR) P. aeruginosa (PCR) Bryan/B-Vanco Res Genes KPC-Carbap Res Gene PCR 01/12/20 01/12/20 01/12/20 19:25 19:25 19:25 WBC 12.4 H RBC 4.10 L Hgb 13.2 L Hct 38.4 L MCV 93.7 MCH 32.2 MCHC 34.3 RDW 13.5 Plt Count 189 Neut % (Auto) 88.9 H Lymph % (Auto) 2.4 L Long % (Auto) 6.7 Eos % (Auto) 0.6 L Baso % (Auto) 1.4 Neut # (Auto) 18670 H Lymph # (Auto) 300 L Long # (Auto) 800 Eos # (Auto) 100 Baso # (Auto) 200 H PT 18.0 H INR 1.6 H APTT 33 Sodium Potassium Chloride Carbon Dioxide BUN Creatinine Estimated GFR BUN/Creatinine Ratio Glucose Hemoglobin A1c Lactate Calcium Magnesium Total Bilirubin AST ALT Alkaline Phosphatase Total Creatine Kinase CK-MB (CK-2) CK-MB (CK-2) Rel Index Troponin I C-Reactive Protein NT-Pro-B Natriuret Pep Total Protein Albumin Globulin Albumin/Globulin Ratio Procalcitonin 0.56 H Urine Color Urine Appearance Urine pH Ur Specific [place] Urine Protein Urine Glucose (UA) Urine Ketones Urine Occult Blood Urine Nitrate Urine Bilirubin Urine Urobilinogen Ur Leukocyte Esterase Urine RBC Urine WBC Ur Squamous Epith Cells Urine Bacteria Ur Culture Indicated? Nasal Screen MRSA (PCR) A. baumannii (PCR) Chlamy pneumoniae PCR Adenovirus (PCR) B.parapertussis DNA PCR Marilee albicans (PCR) C. glabrata (PCR) C. krusei (PCR) C. parapsilosis (PCR) C. tropicalis (PCR) Coronavirus OC43 (PCR) Coronavirus HKU1 (PCR) Coronavirus 229E (PCR) Coronavirus NL63 (PCR) Enterobacteriac sp PCR E. cloacae complex PCR Enterococcus sp PCR E. coli (PCR) H. influenzae (PCR) Human Metapneumovir PCR Influenza A (RT-PCR) Influenza Type A (PCR) Influenza B (RT-PCR) Influenza Type B (PCR) Klebsiella oxytoca PCR Klebsiella pneumoniae List. monocytogenes PCR M. pneumoniae (PCR) N. meningitidis (PCR) Parainfluenza 1 (PCR) Parainfluenza 2 (PCR) Parainfluenza 3 (PCR) Parainfluenza 4 (PCR) Proteus species (PCR) RSV (PCR) Entero/Rhino (PCR) Serratia marcescens PCR Staphylococcus sp PCR Staph aureus (PCR) mecA-Methicil Res Gene Streptococcus sp PCR Group A Strep (PCR) Strep agalactiae (PCR) Strep pneumoniae (PCR) P. aeruginosa (PCR) Bryan/B-Vanco Res Genes KPC-Carbap Res Gene PCR 01/12/20 01/12/20 01/12/20 19:25 19:25 19:25 WBC RBC Hgb Hct MCV MCH MCHC RDW Plt Count Neut % (Auto) Lymph % (Auto) Long % (Auto) Eos % (Auto) Baso % (Auto) Neut # (Auto) Lymph # (Auto) Long # (Auto) Eos # (Auto) Baso # (Auto) PT INR APTT Sodium 135 L Potassium 4.0 Chloride 100 Carbon Dioxide 24 BUN 37 H Creatinine 1.49 H Estimated GFR 45.9 L BUN/Creatinine Ratio 24.8 H Glucose 162 H Hemoglobin A1c Lactate 2.5 H Calcium 9.2 Magnesium Total Bilirubin 0.5 AST 25 ALT 21 Alkaline Phosphatase 75 Total Creatine Kinase CK-MB (CK-2) CK-MB (CK-2) Rel Index Troponin I C-Reactive Protein NT-Pro-B Natriuret Pep Total Protein 8.0 Albumin 4.4 Globulin 3.6 Albumin/Globulin Ratio 1.2 Procalcitonin Urine Color Urine Appearance Urine pH Ur Specific [place] Urine Protein Urine Glucose (UA) Urine Ketones Urine Occult Blood Urine Nitrate Urine Bilirubin Urine Urobilinogen Ur Leukocyte Esterase Urine RBC Urine WBC Ur Squamous Epith Cells Urine Bacteria Ur Culture Indicated? Nasal Screen MRSA (PCR) A. baumannii (PCR) Chlamy pneumoniae PCR Not detected Adenovirus (PCR) Not detected B.parapertussis DNA PCR Not detected Marilee albicans (PCR) C. glabrata (PCR) C. krusei (PCR) C. parapsilosis (PCR) C. tropicalis (PCR) Coronavirus OC43 (PCR) Not detected Coronavirus HKU1 (PCR) Not detected Coronavirus 229E (PCR) Not detected Coronavirus NL63 (PCR) Not detected Enterobacteriac sp PCR E. cloacae complex PCR Enterococcus sp PCR E. coli (PCR) H. influenzae (PCR) Human Metapneumovir PCR Not detected Influenza A (RT-PCR) Influenza Type A (PCR) Not detected Influenza B (RT-PCR) Influenza Type B (PCR) Not detected Klebsiella oxytoca PCR Klebsiella pneumoniae List. monocytogenes PCR M. pneumoniae (PCR) Not detected N. meningitidis (PCR) Parainfluenza 1 (PCR) Not detected Parainfluenza 2 (PCR) Not detected Parainfluenza 3 (PCR) Not detected Parainfluenza 4 (PCR) Not detected Proteus species (PCR) RSV (PCR) Not detected Entero/Rhino (PCR) Not detected Serratia marcescens PCR Staphylococcus sp PCR Staph aureus (PCR) mecA-Methicil Res Gene Streptococcus sp PCR Group A Strep (PCR) Strep agalactiae (PCR) Strep pneumoniae (PCR) P. aeruginosa (PCR) Bryan/B-Vanco Res Genes KPC-Carbap Res Gene PCR 01/12/20 01/12/20 01/12/20 19:25 19:25 19:25 WBC RBC Hgb Hct MCV MCH MCHC RDW Plt Count Neut % (Auto) Lymph % (Auto) Long % (Auto) Eos % (Auto) Baso % (Auto) Neut # (Auto) Lymph # (Auto) Long # (Auto) Eos # (Auto) Baso # (Auto) PT INR APTT Sodium Potassium Chloride Carbon Dioxide BUN Creatinine Estimated GFR BUN/Creatinine Ratio Glucose Hemoglobin A1c 6.4 H Lactate Calcium Magnesium 1.8 Total Bilirubin AST ALT Alkaline Phosphatase Total Creatine Kinase CK-MB (CK-2) CK-MB (CK-2) Rel Index Troponin I C-Reactive Protein NT-Pro-B Natriuret Pep Total Protein Albumin Globulin Albumin/Globulin Ratio Procalcitonin Urine Color Urine Appearance Urine pH Ur Specific [place] Urine Protein Urine Glucose (UA) Urine Ketones Urine Occult Blood Urine Nitrate Urine Bilirubin Urine Urobilinogen Ur Leukocyte Esterase Urine RBC Urine WBC Ur Squamous Epith Cells Urine Bacteria Ur Culture Indicated? Nasal Screen MRSA (PCR) A. baumannii (PCR) Not detected Chlamy pneumoniae PCR Adenovirus (PCR) B.parapertussis DNA PCR Marilee albicans (PCR) Not detected C. glabrata (PCR) Not detected C. krusei (PCR) Not detected C. parapsilosis (PCR) Not detected C. tropicalis (PCR) Not detected Coronavirus OC43 (PCR) Coronavirus HKU1 (PCR) Coronavirus 229E (PCR) Coronavirus NL63 (PCR) Enterobacteriac sp PCR Detected H E. cloacae complex PCR Not detected Enterococcus sp PCR Not detected E. coli (PCR) Detected H H. influenzae (PCR) Not detected Human Metapneumovir PCR Influenza A (RT-PCR) Influenza Type A (PCR) Influenza B (RT-PCR) Influenza Type B (PCR) Klebsiella oxytoca PCR Not detected Klebsiella pneumoniae Not detected List. monocytogenes PCR Not detected M. pneumoniae (PCR) N. meningitidis (PCR) Not detected Parainfluenza 1 (PCR) Parainfluenza 2 (PCR) Parainfluenza 3 (PCR) Parainfluenza 4 (PCR) Proteus species (PCR) Not detected RSV (PCR) Entero/Rhino (PCR) Serratia marcescens PCR Not detected Staphylococcus sp PCR Not detected Staph aureus (PCR) Not detected mecA-Methicil Res Gene Not Reportable Streptococcus sp PCR Not detected Group A Strep (PCR) Not detected Strep agalactiae (PCR) Not detected Strep pneumoniae (PCR) Not detected P. aeruginosa (PCR) Not detected Bryan/B-Vanco Res Genes Not Reportable KPC-Carbap Res Gene PCR Not detected 01/12/20 01/12/20 01/13/20 22:14 22:45 05:32 WBC 12.3 H RBC 3.76 L Hgb 12.2 L Hct 35.4 L MCV 94.1 MCH 32.4 MCHC 34.5 RDW 13.5 Plt Count 161 Neut % (Auto) 89.6 H Lymph % (Auto) 1.6 L Long % (Auto) 8.4 Eos % (Auto) 0.1 L Baso % (Auto) 0.3 Neut # (Auto) 76778 H Lymph # (Auto) 200 L Long # (Auto) 1000 H Eos # (Auto) 0 Baso # (Auto) 0 PT INR APTT Sodium Potassium Chloride Carbon Dioxide BUN Creatinine Estimated GFR BUN/Creatinine Ratio Glucose Hemoglobin A1c Lactate 2.4 H Calcium Magnesium Total Bilirubin AST ALT Alkaline Phosphatase Total Creatine Kinase CK-MB (CK-2) CK-MB (CK-2) Rel Index Troponin I C-Reactive Protein NT-Pro-B Natriuret Pep Total Protein Albumin Globulin Albumin/Globulin Ratio Procalcitonin Urine Color Urine Appearance Urine pH Ur Specific [place] Urine Protein Urine Glucose (UA) Urine Ketones Urine Occult Blood Urine Nitrate Urine Bilirubin Urine Urobilinogen Ur Leukocyte Esterase Urine RBC Urine WBC Ur Squamous Epith Cells Urine Bacteria Ur Culture Indicated? Nasal Screen MRSA (PCR) Negative for mrsa A. baumannii (PCR) Chlamy pneumoniae PCR Adenovirus (PCR) B.parapertussis DNA PCR Marilee albicans (PCR) C. glabrata (PCR) C. krusei (PCR) C. parapsilosis (PCR) C. tropicalis (PCR) Coronavirus OC43 (PCR) Coronavirus HKU1 (PCR) Coronavirus 229E (PCR) Coronavirus NL63 (PCR) Enterobacteriac sp PCR E. cloacae complex PCR Enterococcus sp PCR E. coli (PCR) H. influenzae (PCR) Human Metapneumovir PCR Influenza A (RT-PCR) Influenza Type A (PCR) Influenza B (RT-PCR) Influenza Type B (PCR) Klebsiella oxytoca PCR Klebsiella pneumoniae List. monocytogenes PCR M. pneumoniae (PCR) N. meningitidis (PCR) Parainfluenza 1 (PCR) Parainfluenza 2 (PCR) Parainfluenza 3 (PCR) Parainfluenza 4 (PCR) Proteus species (PCR) RSV (PCR) Entero/Rhino (PCR) Serratia marcescens PCR Staphylococcus sp PCR Staph aureus (PCR) mecA-Methicil Res Gene Streptococcus sp PCR Group A Strep (PCR) Strep agalactiae (PCR) Strep pneumoniae (PCR) P. aeruginosa (PCR) Bryan/B-Vanco Res Genes KPC-Carbap Res Gene PCR 01/13/20 01/13/20 05:32 05:32 WBC RBC Hgb Hct MCV MCH MCHC RDW Plt Count Neut % (Auto) Lymph % (Auto) Long % (Auto) Eos % (Auto) Baso % (Auto) Neut # (Auto) Lymph # (Auto) Long # (Auto) Eos # (Auto) Baso # (Auto) PT INR APTT Sodium 134 L Potassium 3.8 Chloride 102 Carbon Dioxide 25 BUN 36 H Creatinine 1.41 H Estimated GFR 48.9 L BUN/Creatinine Ratio 25.5 H Glucose 223 H Hemoglobin A1c Lactate Calcium 8.4 Magnesium Total Bilirubin AST ALT Alkaline Phosphatase Total Creatine Kinase CK-MB (CK-2) CK-MB (CK-2) Rel Index Troponin I C-Reactive Protein NT-Pro-B Natriuret Pep Total Protein Albumin Globulin Albumin/Globulin Ratio Procalcitonin 4.40 H Urine Color Urine Appearance Urine pH Ur Specific [place] Urine Protein Urine Glucose (UA) Urine Ketones Urine Occult Blood Urine Nitrate Urine Bilirubin Urine Urobilinogen Ur Leukocyte Esterase Urine RBC Urine WBC Ur Squamous Epith Cells Urine Bacteria Ur Culture Indicated? Nasal Screen MRSA (PCR) A. baumannii (PCR) Chlamy pneumoniae PCR Adenovirus (PCR) B.parapertussis DNA PCR Marilee albicans (PCR) C. glabrata (PCR) C. krusei (PCR) C. parapsilosis (PCR) C. tropicalis (PCR) Coronavirus OC43 (PCR) Coronavirus HKU1 (PCR) Coronavirus 229E (PCR) Coronavirus NL63 (PCR) Enterobacteriac sp PCR E. cloacae complex PCR Enterococcus sp PCR E. coli (PCR) H. influenzae (PCR) Human Metapneumovir PCR Influenza A (RT-PCR) Influenza Type A (PCR) Influenza B (RT-PCR) Influenza Type B (PCR) Klebsiella oxytoca PCR Klebsiella pneumoniae List. monocytogenes PCR M. pneumoniae (PCR) N. meningitidis (PCR) Parainfluenza 1 (PCR) Parainfluenza 2 (PCR) Parainfluenza 3 (PCR) Parainfluenza 4 (PCR) Proteus species (PCR) RSV (PCR) Entero/Rhino (PCR) Serratia marcescens PCR Staphylococcus sp PCR Staph aureus (PCR) mecA-Methicil Res Gene Streptococcus sp PCR Group A Strep (PCR) Strep agalactiae (PCR) Strep pneumoniae (PCR) P. aeruginosa (PCR) Bryan/B-Vanco Res Genes KPC-Carbap Res Gene PCR Assessment & Plan Assessment & Plan narrative: Leandro Allen is a 74-year-old male with a past medical history significant for hypertension, hyperlipidemia, paroxysmal atrial fibrillation/flutter status post ablation and on Xarelto, diabetes mellitus type 2, non-insulin using and diet controlled, COPD/asthma, obstructive sleep apnea on CPAP, GERD, and bladder tumor status post resection who presented with fever, nausea, vomiting and generalized weakness. 1. Acute sigmoid diverticulitis with E. coli bacteremia, present on admission. Active. -Patient presented with fever, nausea, vomiting and generalized weakness. -Initial WBC elevated at 12.4 and procalcitonin 0.56. WBC unchanged at 12.3 and procalcitonin trending up and likely peaking at 4.40. Continue to monitor WBC and procalcitonin daily. -Lactic acid elevated at 2.5 and trended until under 2.0. -CRP 1.4 which is within normal limits if corrected for age. -CT abdomen and pelvis with contrast demonstrated sigmoid diverticulitis without evidence of diverticular abscess or macroscopic freeair. -Blood culture preliminarily positive for E coli in 1:4 bottles. -Received 1 L NS in ED. Continued gentle IV fluid hydration until adequately hydrated then discontinued. -Received ceftriaxone 2 g IV x1 in ED. Discontinued ceftriaxone. Started and continue Zosyn 3.375 g IV every 6 hours until blood culture sensitivities result. Patient will need to be on IV antibiotics for at least 3 days due to bacteremia. -Consulted general surgery, Dr. Quiñones, who plans to see the patient later this afternoon. 2. Pneumonia ruled out. -Patient denies any upper lower respiratory symptoms other than chronic mildly productive cough which is related to COPD and unchanged. No recent sick contacts. Patient reports he has been in isolation due to current COVID-19 pandemic. -Chest x-ray demonstrated bibasilar opacities left greater than right likely due to atelectasis. -CT chest without contrast did not demonstrate any acute pulmonary process with bibasilar atelectasis and scarring of the lung bases. -Respiratory PCR negative. Influenza A and B negative. COVID-19 pending and will continue droplet precautions until ruled out. 3. Chronic obstructive pulmonary disease and restrictive lung disease, present on admission. Stable. -Does not represent COPD exacerbation. -PFTs on 04/19/2019 demonstrated mild COPD and restrictive disease with dec reased diffusion capacity. -Continue respiratory therapy for evaluation and treatment. Continue Albuterol MDI inhaler with spacer 2 puffs every 4 hours as needed. 4. Diabetes mellitus type 2, non-insulin using and diet-controlled, present on admission. Stable. -Hemoglobin A1c 6.4% indicative of prediabetes. -Patient is under the care of a territory sales representative in [place] on [facility]. He is on no diabetic medications and uses various herbal supplements that he cannot recall. -Continue [facility] blood glucose checks and low-dose correctional scale insulin. -Continue diet control with carbohydrate consistent/heart healthy diet. 5. Chronic kidney disease stage 3, present on admission. Stable. -Initial creatinine 1.49. Baseline creatinine 1.50 on 07/19/2019. -Avoid nephrotoxic agents and optimize renal perfusion. -Continue to monitor renal function periodically. 6. Paroxysmal atrial fibrillation/flutter status post ablation, present on admission. Stable. -The patient denies complaints of chest pain or palpitations. -EKG demonstrated sinus rhythm with right bundle branch block and left anterior fascicular block without any acute ischemic changes such as ST elevation or depression. -Continue rhythm control with amiodarone 200 mg daily, rate control with metoprolol succinate 25 mg daily in the morning and 12.5 mg daily at bedtime and anticoagulation with Xarelto 20 mg daily. 7. Hypertension, chronic, present on admission. Stable. -Blood pressure is adequately controlled with initial BP 139/58 upon arrival to the ED. -Continue home enalapril 5 mg daily metoprolol succinate 25 mg daily in the morning and 12.5 mg daily at bedtime and triamterene/hydrochlorothiazide 37.5/25 mg daily. 8. Hyperlipidemia, chronic, present on admission. Stable. -Continue home lovastatin 40 mg daily. 9. Hypothyroidism, chronic, present on admission. Stable. -TSH normal at 1.56. -Continue levothyroxine 75 mcg daily and liothyronine 10 mcg daily. 10. BPH, chronic, present on admission. Stable. -Continue tamsulosin 0.8 mg daily at 1730. 11. GERD, chronic, present on admission. Stable. -Continue home PPI with Protonix 20 mg daily. 12. Obstructive sleep apnea on CPAP, chronic, present on admission. Stable. -Continue home CPAP per RT protocol. Code status: Full code DVT prophylaxis: Xarelto and SCDs Disposition: Patient remains hospitalized for the next 1-2 days until divert iculitis and bacteremia are adequately treated. Quality VTE Deep Vein Thrombosis/Pulmonary Embolism Present on Admission: No
--- NOTE | 2020-01-13 14:03 | DIET.PN ---
Dietary Progress Note Assessment: 74y M admitted for fever, decreased LOC, N/V, positive for E. Coli and Enterobactor c hx of COPD referred to nutrition for high BMI, T2D c hyperglycemia. Pt does not take medication for T2D, controls c diet. A1c indicating good glycemic control (6.4) for age (74y), current hyperglycemia likely r/t infection (CRP elevated, two bacteria present). Pt endorses chronic cough which could be aggravated by excess weight. HT: 170.1cm WT: 109.8kg BMI: 37.9 (morbid obesity) Labs: eGFR 48.9 L, A1c 6.4, BG 223 H, CRP 1.4 H MNA: 13 normal nutrition status [place]: 18 Nutrition Diagnosis: 1. altered nutrition related laboratory values (BG) r/t presence of infection aeb CRP 1.4 H, labs positive for enterobacter and E. Coli, pt's A1c showing adequate dietary control. Interventions: Continue CCD to moderate BG until infection clears. Encouraged walking and limiting snacking during state wide closures to benefit BG numbers and weight status. Diet Order: CCD EER: 2,000 kcals (-500 daily for weight loss), 120g PRO (1.1g/kg), 3.2 L fluids Monitoring/Evaluations: watching BG
--- NOTE | 2020-01-13 14:37 | DI.CT.S_ITS ---
PROCEDURE: CT CHEST ABD PEL W CON INDICATIONS: Bacteremia TECHNIQUE: After the administration of intravenous contrast, 5 mm thick sections acquired from the lung apices to the symphysis. 5 mm coronal and sagittal reformats were performed, with additional 7 mm MIP reformats through the lungs. For radiation dose reduction, the following was used: automated exposure control, adjustment of mA and/or kV according to patient size. COMPARISON: [facility], CT, ABDOMEN/PELVIS WITH CONTRAST, 06/12/2016, 2:49. [facility], CR, ABDOMEN ACUTE SERIES, 06/22/2016, 12:33. [facility], CT, CT ANGIO CHEST, 10/01/2016, 11:38. FINDINGS: Image quality: There is mild motion artifact. CHEST: Lungs and pleura: There is elevation of the left hemidiaphragm with associated left basilar atelectasis. Mild atelectasis and scarring are also demonstrated within the right lung base. No pleural effusions or pneumothorax. There is a small linear filling defect within the trachea extending into the left mainstem bronchus compatible with mucus. Mediastinum: Heart size is at the upper limits of normal. No pericardial effusion. There is prominent coronary arterial vascular calcification. There is enlargement of the pulmonary arteries, with the main pulmonary artery measuring up to 4.4 cm, suggestive of pulmonary arterial hypertension. The thoracic aorta is normal in caliber. Scattered atherosclerotic plaque is demonstrated along its course. No mediastinal or hilar adenopathy by size criteria. Esophagus is normal in caliber. No hiatal hernia. Chest wall: No axillary or supraclavicular adenopathy by size criteria. Thyroid gland demonstrates no discrete nodules or. ABDOMEN: Solid organs: Evaluation of the liver demonstrates no focal hepatic lesions. The gallbladder demonstrates a calcified gallstone measuring up to 1.4 cm. No gallbladder wall thickening or pericholecystic fluid. Biliary system is non-dilated. Pancreas enhances normally. No peripancreatic fat stranding or fluid collections. No pancreatic duct dilatation. The spleen is normal in size. No adrenal nodules. Kidneys demonstrate no hydronephrosis. There is a punctate nonobstructing stone within the right kidney. Bilateral renal cysts are demonstrated including a large exophytic cyst on the right measuring up to 7.4 cm and on the left measuring up to 5.2 cm. Peritoneum and bowel: Small bowel loops demonstrate normal wall thickness and caliber. There is colonic diverticulosis with minimal nancy-diverticular inflammatory fat stranding in the mid sigmoid colon. There is associated segmental colonic wall thickening. Findings are consistent with acute diverticulitis. No diverticular abscess or macroscopic free air. No free fluid. Nodes and vessels: No retroperitoneal or mesenteric adenopathy by size criteria. Aorta and inferior vena cava are normal in size. Miscellaneous: No ventral hernias. PELVIS: Genitourinary: Bladder wall thickness is normal. There is heterogeneous enlargement of the prostate. Miscellaneous: No inguinal hernias or adenopathy. Bones: No suspicious bony lesions. There are bilateral pars defects at L5-S1 redemonstrated with grade 2 anterolisthesis. The findings appear similar to the prior abdominal CT study. No vertebral body compression fractures. IMPRESSION: 1. Sigmoid diverticulitis without evidence of diverticular abscess or macroscopic free air. Given the degree of colonic wall thickening, consider followup evaluation with colonoscopy. 2. Bibasilar atelectasis and scarring in the lung bases. 3. Cholelithiasis without evidence of cholecystitis. Dictated by: Stephane Song M.D. on 01/13/2020 at 14:57 Approved by: Stephane Song M.D. on 01/13/2020 at 15:33
[2020-01-13 15:37] LABS: Bacteria Urine None Seen
[2020-01-13 15:39] LABS: Appearance Urine UA CLEAR; Bilirubin Urine UA NEGATIVE (NEGATIVE); Color Urine UA YELLOW; Glucose Urine UA NEGATIVE (Negative); Ketones Urine UA NEGATIVE (NEGATIVE); Leukocyte Esterase Urine UA NEGATIVE (NEGATIVE); Nitrite Urine UA NEGATIVE (Negative); Occult Blood Urine UA 1+ (Negative); Protein Urine UA NEGATIVE (Negative); Urobilinogen Urine UA 0.2 E.U./dL (0.2)
[2020-01-13 15:46] LABS: Culture Indicated Urine Cult Not Indicated; RBC Urine 1-5/HPF (0-5/HPF); WBC Urine 0-1/HPF (0-5/HPF)
[2020-01-13] MEDS: PIPERACILLIN-TAZO 3.375 GM/50 ML FROZ.PIGGY IV ×2 (16:31→21:36)
[2020-01-13 16:45] LABS: TSH w/ Reflex to FT4 1.56 uIU/mL (0.47-4.68)
--- NOTE | 2020-01-13 16:50 | PM.CN ---
History of Present Illness Consult details Date Patient Seen: 01/13/20 Time Patient Seen: 16:50 Chief complaint: Fever, N/V decreased LOC Reason for consult: Diverticulitis Requesting provider: Sindy Farmer Narrative: This is a 74-year-old male with history significant for a history of hypertension, obesity BMI 38, atrial flutter anticoagulated on Xarelto, type 2 diabetes that is diet controlled, COPD, asthma, obstructive sleep apnea, GERD, diverticulosis, adenomas of colon and bladder tumor who was admitted to the hospital for one day of fever and nausea/vomiting, as well as generalized weakness. He has had dizziness, wheezing, and reflux. He has a history of COPD. He is currently on isolation and being tested for CV19. He is found to have E coli on his blood culture, and so he was sent for a CT scan today, and was found to have uncomplicated diverticulitis. He denies nausea/vomiting/diarrhea/constipation/melena/hematochezia at this time. He specifically denies abdominal pain. His last colonoscopy was in 2017 and he was found to have extensive diverticulosis polyps. ROS: Thirteen system review is otherwise negative other than as mentioned below and in HPI. PE: GENERAL APPEARANCE: Alert, comfortable, appears stated age, obese, nontoxic, in no distress HEENT: Normocephalic, PERRLA, no apparent rhinorrhea, or mucosal erythema EYES: Conjunctiva pink, sclera white, no periorbital swelling. CARDIOVASCULAR: Regular rate. No pedal edema. RESPIRATORY: Non-tachypneic, breathing comfortably on room air. GASTROINTESTINAL: Abdomen obese, rounded, somewhat distended, patient says is his normal abdomen, nontender, no masses GENITALURINARY: No flank tenderness. MUSCULOSKELETAL: Equal tone and mass bilaterally. SKIN: Warm, dry, soft, appropriate color for ethnicity. No other lesions, rashes, or wounds. NEURO: Alert and Oriented X 3. No gross sensory deficits, or cognitive issues. PSYCH: Appropriate affect and mood. Meds Home Medications and Allergies Home Medications Medication Instructions Recorded Confirmed Type magnesium oxide 1 tab PO Q DAY #0 07/31/16 01/13/20 History metoprolol succinate [Toprol XL] 25 mg PO DAILY #0 07/31/16 01/12/20 History tamsulosin [Flomax] 0.8 mg PO 1730 #60 cap 10/14/16 01/13/20 Rx lovastatin 40 mg PO Q DAY #90 tab 03/04/17 01/12/20 Rx omeprazole 20 mg PO QDAY #90 cap 03/04/17 01/13/20 Rx potassium chloride [Klor-Con M20] 20 meq PO AMCC #90 tab 05/27/17 01/13/20 Rx enalapril maleate 5 mg PO QDAY #90 tab 08/03/17 01/12/20 Rx blood sugar diagnostic #100 each 04/23/18 01/13/20 Rx amiodarone 200 mg tablet 200 mg PO QPM 04/18/19 01/13/20 History liothyronine 5 mcg tablet 10 mcg PO DAILY tab 04/18/19 01/12/20 History rivaroxaban 20 mg tablet 20 mg PO QPM 04/18/19 01/13/20 History levothyroxine 75 mcg PO DAILY 01/12/20 01/12/20 History metoprolol succinate 12.5 mg PO BEDTIME 01/12/20 01/12/20 History triamterene-hydrochlorothiazid 1 cap PO DAILY 01/12/20 01/12/20 History Allergies Allergy/AdvReac Type Severity Reaction Status Date / Time latex Allergy Verified 01/12/20 21:37 Exam Vital Signs (past 8 hours): - 01/13/20 09:34 01/13/20 11:26 01/13/20 16:15 Temperature 98.3 F 99.7 F H Pulse Rate 74 71 67 Respiratory Rate 20 20 18 Blood Pressure 130/60 114/58 L Pulse Oximetry 93 95 97 Oxygen Delivery Method Room Air Oxygen Flow Rate [address] scan - abdomen: My impression: Low-grade diverticulitis, renal cysts Radiologist's impression: DASIA Galvin [id number] CT Scan Report Signed Patient: Leandro Allen [facility]#: [id number] : 3Acct:[id number] Age/Sex: 74 / MDate of Service: 01/13/20 Loc: [id number] Accession Number: [id number] Procedure: CT chest abd pel w con Ordering Provider: Sindy Farmer D.O. PROCEDURE: CT CHEST ABD PEL W CON INDICATIONS: Bacteremia TECHNIQUE: After the administration of intravenous contrast, 5 mm thick sections acquired from the lung apices to the symphysis. 5 mm coronal and sagittal reformats were performed, with additional 7 mm MIP reformats through the lungs. For radiation dose reduction, the following was used: automated exposure control, adjustment of mA and/or kV according to patient size. COMPARISON: [facility], CT, ABDOMEN/PELVIS WITH CONTRAST, 06/12/2016, 2:49. [facility], CR, ABDOMEN ACUTE SERIES, 06/22/2016, 12:33. [facility], CT, CT ANGIO CHEST, 10/01/2016, 11:38. FINDINGS: Image quality: There is mild motion artifact. CHEST: Lungs and pleura: There is elevation of the left hemidiaphragm with associated left basilar atelectasis. Mild atelectasis and scarring are also demonstrated within the right lung base. No pleural effusions or pneumothorax. There is a small linear filling defect within the trachea extending into the left mainstem bronchus compatible with mucus. Mediastinum: Heart size is at the upper limits of normal. No pericardial effusion. There is prominent coronary arterial vascular calcification. There is enlargement of the pulmonary arteries, with the main pulmonary artery measuring up to 4.4 cm, suggestive of pulmonary arterial hypertension. The thoracic aorta is normal in caliber. Scattered atherosclerotic plaque is demonstrated along its course. No mediastinal or hilar adenopathy by size criteria. Esophagus is normal in caliber. No hiatal hernia. Chest wall: No axillary or supraclavicular adenopathy by size criteria. Thyroid gland demonstrates no discrete nodules or. ABDOMEN: Solid organs: Evaluation of the liver demonstrates no focal hepatic lesions. The gallbladder demonstrates a calcified gallstone measuring up to 1.4 cm. No gallbladder wall thickening or pericholecystic fluid. Biliary system is non-dilated. Pancreas enhances normally. No peripancreatic fat stranding or fluid collections. No pancreatic duct dilatation. The spleen is normal in size. No adrenal nodules. Kidneys demonstrate no hydronephrosis. There is a punctate nonobstructing stone within the right kidney. Bilateral renal cysts are demonstrated including a large exophytic cyst on the right measuring up to 7.4 cm and on the left measuring up to 5.2 cm. Peritoneum and bowel: Small bowel loops demonstrate normal wall thickness and caliber. There is colonic diverticulosis with minimal nancy-diverticular inflammatory fat stranding in the mid sigmoid colon. There is associated segmental colonic wall thickening. Findings are consistent with acute diverticulitis. No diverticular abscess or macroscopic free air. No free fluid. Nodes and vessels: No retroperitoneal or mesenteric adenopathy by size criteria. Aorta and inferior vena cava are normal in size. Miscellaneous: No ventral hernias. PELVIS: Genitourinary: Bladder wall thickness is normal. There is heterogeneous enlargement of the prostate. Miscellaneous: No inguinal hernias or adenopathy. Bones: No suspicious bony lesions. There are bilateral pars defects at L5-S1 redemonstrated with grade 2 anterolisthesis. The findings appear similar to the prior abdominal CT study. No vertebral body compression fractures. IMPRESSION: 1. Sigmoid diverticulitis without evidence of diverticular abscess or macroscopic free air. Given the degree of colonic wall thickening, consider followup evaluation with colonoscopy. 2. Bibasilar atelectasis and scarring in the lung bases. 3. Cholelithiasis without evidence of cholecystitis. Labs Result Diagrams: 01/13/20 05:32 01/13/20 05:32 Labs: Laboratory Results - last 24 hr 01/12/20 01/12/20 01/12/20 19:16 19:25 19:25 WBC RBC Hgb Hct MCV MCH MCHC RDW Plt Count Neut % (Auto) Lymph % (Auto) [place] % (Auto) Eos % (Auto) Baso % (Auto) Neut # (Auto) Lymph # (Auto) [place] # (Auto) Eos # (Auto) Baso # (Auto) PT INR APTT Sodium Potassium Chloride Carbon Dioxide BUN Creatinine Estimated GFR BUN/Creatinine Ratio Glucose Hemoglobin A1c Lactate Calcium Magnesium Total Bilirubin AST ALT Alkaline Phosphatase Total Creatine Kinase 107 CK-MB (CK-2) 1.07 CK-MB (CK-2) Rel Index 1.0 L Troponin I < 0.012 C-Reactive Protein 1.4 H NT-Pro-B Natriuret Pep 330 Total Protein Albumin Globulin Albumin/Globulin Ratio Procalcitonin TSH Urine Color Yellow Urine Appearance Clear Urine pH 5.0 Ur Specific [place] 1.020 Urine Protein Negative Urine Glucose (UA) Negative Urine Ketones Negative Urine Occult Blood Trace-lysed Urine Nitrate Negative Urine Bilirubin Negative Urine Urobilinogen 0.2 Ur Leukocyte Esterase Negative Urine RBC 0-1/hpf Urine WBC 0-1/hpf Ur Squamous Epith Cells 0-1 /hpf Urine Bacteria None seen Ur Culture Indicated? Cult not indicated Nasal Screen MRSA (PCR) A. baumannii (PCR) Chlamy pneumoniae PCR Adenovirus (PCR) B.parapertussis DNA PCR Marilee albicans (PCR) C. glabrata (PCR) C. krusei (PCR) C. parapsilosis (PCR) C. tropicalis (PCR) Coronavirus OC43 (PCR) Coronavirus HKU1 (PCR) Coronavirus 229E (PCR) Coronavirus NL63 (PCR) Enterobacteriac sp PCR E. cloacae complex PCR Enterococcus sp PCR E. coli (PCR) H. influenzae (PCR) Human Metapneumovir PCR Influenza A (RT-PCR) Flu a negative Influenza Type A (PCR) Influenza B (RT-PCR) Flu b negative Influenza Type B (PCR) Klebsiella oxytoca PCR Klebsiella pneumoniae List. monocytogenes PCR M. pneumoniae (PCR) N. meningitidis (PCR) Parainfluenza 1 (PCR) Parainfluenza 2 (PCR) Parainfluenza 3 (PCR) Parainfluenza 4 (PCR) Proteus species (PCR) RSV (PCR) Entero/Rhino (PCR) Serratia marcescens PCR Staphylococcus sp PCR Staph aureus (PCR) mecA-Methicil Res Gene Streptococcus sp PCR Group A Strep (PCR) Strep agalactiae (PCR) Strep pneumoniae (PCR) P. aeruginosa (PCR) Bryan/B-Vanco Res Genes KPC-Carbap Res Gene PCR 01/12/20 01/12/20 01/12/20 19:25 19:25 19:25 WBC 12.4 H RBC 4.10 L Hgb 13.2 L Hct 38.4 L MCV 93.7 MCH 32.2 MCHC 34.3 RDW 13.5 Plt Count 189 Neut % (Auto) 88.9 H Lymph % (Auto) 2.4 L [place] % (Auto) 6.7 Eos % (Auto) 0.6 L Baso % (Auto) 1.4 Neut # (Auto) 70787 H Lymph # (Auto) 300 L [place] # (Auto) 800 Eos # (Auto) 100 Baso # (Auto) 200 H PT 18.0 H INR 1.6 H APTT 33 Sodium Potassium Chloride Carbon Dioxide BUN Creatinine Estimated GFR BUN/Creatinine Ratio Glucose Hemoglobin A1c Lactate Calcium Magnesium Total Bilirubin AST ALT Alkaline Phosphatase Total Creatine Kinase CK-MB (CK-2) CK-MB (CK-2) Rel Index Troponin I C-Reactive Protein NT-Pro-B Natriuret Pep Total Protein Albumin Globulin Albumin/Globulin Ratio Procalcitonin 0.56 H TSH Urine Color Urine Appearance Urine pH Ur Specific [place] Urine Protein Urine Glucose (UA) Urine Ketones Urine Occult Blood Urine Nitrate Urine Bilirubin Urine Urobilinogen Ur Leukocyte Esterase Urine RBC Urine WBC Ur Squamous Epith Cells Urine Bacteria Ur Culture Indicated? Nasal Screen MRSA (PCR) A. baumannii (PCR) Chlamy pneumoniae PCR Adenovirus (PCR) B.parapertussis DNA PCR Marilee albicans (PCR) C. glabrata (PCR) C. krusei (PCR) C. parapsilosis (PCR) C. tropicalis (PCR) Coronavirus OC43 (PCR) Coronavirus HKU1 (PCR) Coronavirus 229E (PCR) Coronavirus NL63 (PCR) Enterobacteriac sp PCR E. cloacae complex PCR Enterococcus sp PCR E. coli (PCR) H. influenzae (PCR) Human Metapneumovir PCR Influenza A (RT-PCR) Influenza Type A (PCR) Influenza B (RT-PCR) Influenza Type B (PCR) Klebsiella oxytoca PCR Klebsiella pneumoniae List. monocytogenes PCR M. pneumoniae (PCR) N. meningitidis (PCR) Parainfluenza 1 (PCR) Parainfluenza 2 (PCR) Parainfluenza 3 (PCR) Parainfluenza 4 (PCR) Proteus species (PCR) RSV (PCR) Entero/Rhino (PCR) Serratia marcescens PCR Staphylococcus sp PCR Staph aureus (PCR) mecA-Methicil Res Gene Streptococcus sp PCR Group A Strep (PCR) Strep agalactiae (PCR) Strep pneumoniae (PCR) P. aeruginosa (PCR) Bryan/B-Vanco Res Genes KPC-Carbap Res Gene PCR 01/12/20 01/12/20 01/12/20 19:25 19:25 19:25 WBC RBC Hgb Hct MCV MCH MCHC RDW Plt Count Neut % (Auto) Lymph % (Auto) [place] % (Auto) Eos % (Auto) Baso % (Auto) Neut # (Auto) Lymph # (Auto) [place] # (Auto) Eos # (Auto) Baso # (Auto) PT INR APTT Sodium 135 L Potassium 4.0 Chloride 100 Carbon Dioxide 24 BUN 37 H Creatinine 1.49 H Estimated GFR 45.9 L BUN/Creatinine Ratio 24.8 H Glucose 162 H Hemoglobin A1c Lactate 2.5 H Calcium 9.2 Magnesium Total Bilirubin 0.5 AST 25 ALT 21 Alkaline Phosphatase 75 Total Creatine Kinase CK-MB (CK-2) CK-MB (CK-2) Rel Index Troponin I C-Reactive Protein NT-Pro-B Natriuret Pep Total Protein 8.0 Albumin 4.4 Globulin 3.6 Albumin/Globulin Ratio 1.2 Procalcitonin TSH Urine Color Urine Appearance Urine pH Ur Specific [place] Urine Protein Urine Glucose (UA) Urine Ketones Urine Occult Blood Urine Nitrate Urine Bilirubin Urine Urobilinogen Ur Leukocyte Esterase Urine RBC Urine WBC Ur Squamous Epith Cells Urine Bacteria Ur Culture Indicated? Nasal Screen MRSA (PCR) A. baumannii (PCR) Chlamy pneumoniae PCR Not detected Adenovirus (PCR) Not detected B.parapertussis DNA PCR Not detected Marilee albicans (PCR) C. glabrata (PCR) C. krusei (PCR) C. parapsilosis (PCR) C. tropicalis (PCR) Coronavirus OC43 (PCR) Not detected Coronavirus HKU1 (PCR) Not detected Coronavirus 229E (PCR) Not detected Coronavirus NL63 (PCR) Not detected Enterobacteriac sp PCR E. cloacae complex PCR Enterococcus sp PCR E. coli (PCR) H. influenzae (PCR) Human Metapneumovir PCR Not detected Influenza A (RT-PCR) Influenza Type A (PCR) Not detected Influenza B (RT-PCR) Influenza Type B (PCR) Not detected Klebsiella oxytoca PCR Klebsiella pneumoniae List. monocytogenes PCR M. pneumoniae (PCR) Not detected N. meningitidis (PCR) Parainfluenza 1 (PCR) Not detected Parainfluenza 2 (PCR) Not detected Parainfluenza 3 (PCR) Not detected Parainfluenza 4 (PCR) Not detected Proteus species (PCR) RSV (PCR) Not detected Entero/Rhino (PCR) Not detected Serratia marcescens PCR Staphylococcus sp PCR Staph aureus (PCR) mecA-Methicil Res Gene Streptococcus sp PCR Group A Strep (PCR) Strep agalactiae (PCR) Strep pneumoniae (PCR) P. aeruginosa (PCR) Bryan/B-Vanco Res Genes KPC-Carbap Res Gene PCR 01/12/20 01/12/20 01/12/20 19:25 19:25 19:25 WBC RBC Hgb Hct MCV MCH MCHC RDW Plt Count Neut % (Auto) Lymph % (Auto) [place] % (Auto) Eos % (Auto) Baso % (Auto) Neut # (Auto) Lymph # (Auto) [place] # (Auto) Eos # (Auto) Baso # (Auto) PT INR APTT Sodium Potassium Chloride Carbon Dioxide BUN Creatinine Estimated GFR BUN/Creatinine Ratio Glucose Hemoglobin A1c 6.4 H Lactate Calcium Magnesium 1.8 Total Bilirubin AST ALT Alkaline Phosphatase Total Creatine Kinase CK-MB (CK-2) CK-MB (CK-2) Rel Index Troponin I C-Reactive Protein NT-Pro-B Natriuret Pep Total Protein Albumin Globulin Albumin/Globulin Ratio Procalcitonin TSH Urine Color Urine Appearance Urine pH Ur Specific [place] Urine Protein Urine Glucose (UA) Urine Ketones Urine Occult Blood Urine Nitrate Urine Bilirubin Urine Urobilinogen Ur Leukocyte Esterase Urine RBC Urine WBC Ur Squamous Epith Cells Urine Bacteria Ur Culture Indicated? Nasal Screen MRSA (PCR) A. baumannii (PCR) Not detected Chlamy pneumoniae PCR Adenovirus (PCR) B.parapertussis DNA PCR Marilee albicans (PCR) Not detected C. glabrata (PCR) Not detected C. krusei (PCR) Not detected C. parapsilosis (PCR) Not detected C. tropicalis (PCR) Not detected Coronavirus OC43 (PCR) Coronavirus HKU1 (PCR) Coronavirus 229E (PCR) Coronavirus NL63 (PCR) Enterobacteriac sp PCR Detected H E. cloacae complex PCR Not detected Enterococcus sp PCR Not detected E. coli (PCR) Detected H H. influenzae (PCR) Not detected Human Metapneumovir PCR Influenza A (RT-PCR) Influenza Type A (PCR) Influenza B (RT-PCR) Influenza Type B (PCR) Klebsiella oxytoca PCR Not detected Klebsiella pneumoniae Not detected List. monocytogenes PCR Not detected M. pneumoniae (PCR) N. meningitidis (PCR) Not detected Parainfluenza 1 (PCR) Parainfluenza 2 (PCR) Parainfluenza 3 (PCR) Parainfluenza 4 (PCR) Proteus species (PCR) Not detected RSV (PCR) Entero/Rhino (PCR) Serratia marcescens PCR Not detected Staphylococcus sp PCR Not detected Staph aureus (PCR) Not detected mecA-Methicil Res Gene Not Reportable Streptococcus sp PCR Not detected Group A Strep (PCR) Not detected Strep agalactiae (PCR) Not detected Strep pneumoniae (PCR) Not detected P. aeruginosa (PCR) Not detected Bryan/B-Vanco Res Genes Not Reportable KPC-Carbap Res Gene PCR Not detected 01/12/20 01/12/20 01/13/20 22:14 22:45 05:32 WBC 12.3 H RBC 3.76 L Hgb 12.2 L Hct 35.4 L MCV 94.1 MCH 32.4 MCHC 34.5 RDW 13.5 Plt Count 161 Neut % (Auto) 89.6 H Lymph % (Auto) 1.6 L [place] % (Auto) 8.4 Eos % (Auto) 0.1 L Baso % (Auto) 0.3 Neut # (Auto) 51059 H Lymph # (Auto) 200 L [place] # (Auto) 1000 H Eos # (Auto) 0 Baso # (Auto) 0 PT INR APTT Sodium Potassium Chloride Carbon Dioxide BUN Creatinine Estimated GFR BUN/Creatinine Ratio Glucose Hemoglobin A1c Lactate 2.4 H Calcium Magnesium Total Bilirubin AST ALT Alkaline Phosphatase Total Creatine Kinase CK-MB (CK-2) CK-MB (CK-2) Rel Index Troponin I C-Reactive Protein NT-Pro-B Natriuret Pep Total Protein Albumin Globulin Albumin/Globulin Ratio Procalcitonin TSH Urine Color Urine Appearance Urine pH Ur Specific [place] Urine Protein Urine Glucose (UA) Urine Ketones Urine Occult Blood Urine Nitrate Urine Bilirubin Urine Urobilinogen Ur Leukocyte Esterase Urine RBC Urine WBC Ur Squamous Epith Cells Urine Bacteria Ur Culture Indicated? Nasal Screen MRSA (PCR) Negative for mrsa A. baumannii (PCR) Chlamy pneumoniae PCR Adenovirus (PCR) B.parapertussis DNA PCR Marilee albicans (PCR) C. glabrata (PCR) C. krusei (PCR) C. parapsilosis (PCR) C. tropicalis (PCR) Coronavirus OC43 (PCR) Coronavirus HKU1 (PCR) Coronavirus 229E (PCR) Coronavirus NL63 (PCR) Enterobacteriac sp PCR E. cloacae complex PCR Enterococcus sp PCR E. coli (PCR) H. influenzae (PCR) Human Metapneumovir PCR Influenza A (RT-PCR) Influenza Type A (PCR) Influenza B (RT-PCR) Influenza Type B (PCR) Klebsiella oxytoca PCR Klebsiella pneumoniae List. monocytogenes PCR M. pneumoniae (PCR) N. meningitidis (PCR) Parainfluenza 1 (PCR) Parainfluenza 2 (PCR) Parainfluenza 3 (PCR) Parainfluenza 4 (PCR) Proteus species (PCR) RSV (PCR) Entero/Rhino (PCR) Serratia marcescens PCR Staphylococcus sp PCR Staph aureus (PCR) mecA-Methicil Res Gene Streptococcus sp PCR Group A Strep (PCR) Strep agalactiae (PCR) Strep pneumoniae (PCR) P. aeruginosa (PCR) Bryan/B-Vanco Res Genes KPC-Carbap Res Gene PCR 01/13/20 01/13/20 01/13/20 05:32 05:32 15:00 WBC RBC Hgb Hct MCV MCH MCHC RDW Plt Count Neut % (Auto) Lymph % (Auto) [place] % (Auto) Eos % (Auto) Baso % (Auto) Neut # (Auto) Lymph # (Auto) [place] # (Auto) Eos # (Auto) Baso # (Auto) PT INR APTT Sodium 134 L Potassium 3.8 Chloride 102 Carbon Dioxide 25 BUN 36 H Creatinine 1.41 H Estimated GFR 48.9 L BUN/Creatinine Ratio 25.5 H Glucose 223 H Hemoglobin A1c Lactate Calcium 8.4 Magnesium Total Bilirubin AST ALT Alkaline Phosphatase Total Creatine Kinase CK-MB (CK-2) CK-MB (CK-2) Rel Index Troponin I C-Reactive Protein NT-Pro-B Natriuret Pep Total Protein Albumin Globulin Albumin/Globulin Ratio Procalcitonin 4.40 H TSH Urine Color Yellow Urine Appearance Clear Urine pH 5.0 Ur Specific [place] 1.010 Urine Protein Negative Urine Glucose (UA) Negative Urine Ketones Negative Urine Occult Blood 1+ H Urine Nitrate Negative Urine Bilirubin Negative Urine Urobilinogen 0.2 Ur Leukocyte Esterase Negative Urine RBC 1-5/hpf Urine WBC 0-1/hpf Ur Squamous Epith Cells Urine Bacteria None seen Ur Culture Indicated? Cult not indicated Nasal Screen MRSA (PCR) A. baumannii (PCR) Chlamy pneumoniae PCR Adenovirus (PCR) B.parapertussis DNA PCR Marilee albicans (PCR) C. glabrata (PCR) C. krusei (PCR) C. parapsilosis (PCR) C. tropicalis (PCR) Coronavirus OC43 (PCR) Coronavirus HKU1 (PCR) Coronavirus 229E (PCR) Coronavirus NL63 (PCR) Enterobacteriac sp PCR E. cloacae complex PCR Enterococcus sp PCR E. coli (PCR) H. influenzae (PCR) Human Metapneumovir PCR Influenza A (RT-PCR) Influenza Type A (PCR) Influenza B (RT-PCR) Influenza Type B (PCR) Klebsiella oxytoca PCR Klebsiella pneumoniae List. monocytogenes PCR M. pneumoniae (PCR) N. meningitidis (PCR) Parainfluenza 1 (PCR) Parainfluenza 2 (PCR) Parainfluenza 3 (PCR) Parainfluenza 4 (PCR) Proteus species (PCR) RSV (PCR) Entero/Rhino (PCR) Serratia marcescens PCR Staphylococcus sp PCR Staph aureus (PCR) mecA-Methicil Res Gene Streptococcus sp PCR Group A Strep (PCR) Strep agalactiae (PCR) Strep pneumoniae (PCR) P. aeruginosa (PCR) Bryan/B-Vanco Res Genes KPC-Carbap Res Gene PCR 01/13/20 15:36 WBC RBC Hgb Hct MCV MCH MCHC RDW Plt Count Neut % (Auto) Lymph % (Auto) [place] % (Auto) Eos % (Auto) Baso % (Auto) Neut # (Auto) Lymph # (Auto) [place] # (Auto) Eos # (Auto) Baso # (Auto) PT INR APTT Sodium Potassium Chloride Carbon Dioxide BUN Creatinine Estimated GFR BUN/Creatinine Ratio Glucose Hemoglobin A1c Lactate Calcium Magnesium Total Bilirubin AST ALT Alkaline Phosphatase Total Creatine Kinase CK-MB (CK-2) CK-MB (CK-2) Rel Index Troponin I C-Reactive Protein NT-Pro-B Natriuret Pep Total Protein Albumin Globulin Albumin/Globulin Ratio Procalcitonin TSH 1.56 Urine Color Urine Appearance Urine pH Ur Specific [place] Urine Protein Urine Glucose (UA) Urine Ketones Urine Occult Blood Urine Nitrate Urine Bilirubin Urine Urobilinogen Ur Leukocyte Esterase Urine RBC Urine WBC Ur Squamous Epith Cells Urine Bacteria Ur Culture Indicated? Nasal Screen MRSA (PCR) A. baumannii (PCR) Chlamy pneumoniae PCR Adenovirus (PCR) B.parapertussis DNA PCR Marilee albicans (PCR) C. glabrata (PCR) C. krusei (PCR) C. parapsilosis (PCR) C. tropicalis (PCR) Coronavirus OC43 (PCR) Coronavirus HKU1 (PCR) Coronavirus 229E (PCR) Coronavirus NL63 (PCR) Enterobacteriac sp PCR E. cloacae complex PCR Enterococcus sp PCR E. coli (PCR) H. influenzae (PCR) Human Metapneumovir PCR Influenza A (RT-PCR) Influenza Type A (PCR) Influenza B (RT-PCR) Influenza Type B (PCR) Klebsiella oxytoca PCR Klebsiella pneumoniae List. monocytogenes PCR M. pneumoniae (PCR) N. meningitidis (PCR) Parainfluenza 1 (PCR) Parainfluenza 2 (PCR) Parainfluenza 3 (PCR) Parainfluenza 4 (PCR) Proteus species (PCR) RSV (PCR) Entero/Rhino (PCR) Serratia marcescens PCR Staphylococcus sp PCR Staph aureus (PCR) mecA-Methicil Res Gene Streptococcus sp PCR Group A Strep (PCR) Strep agalactiae (PCR) Strep pneumoniae (PCR) P. aeruginosa (PCR) Bryan/B-Vanco Res Genes KPC-Carbap Res Gene PCR Assessment & Plan Assessment and plan (1) Diverticulitis: Current visit: Yes Status: Acute (2) Obesity (BMI 30-39.9): Current visit: Yes Status: Acute Assessment & Plan narrative: This is a 74-year-old male with a past medical history as above, found to have diverticulitis on his CT scan, and in the blood culture positive for E coli. His white count is 12, he is nontoxic appearing, and he denies abdominal pain. This appears to be a low-grade diverticulitis in terms of his symptoms, and CT scan findings however, it is the only identified potential source of his E coli bacteremia. Normally diverticulitis is treated with antibiotics for 14 days. So long as symptoms are resolving. If symptoms do not resolve on antibiotics, the patient may require surgery. He should have a colonoscopy a few months after his diverticulitis flare has resolved, and preferably after the viral pandemic has passed. Recommendations: IV antibiotics, would begin was Zosyn, and then change if needed depending on culture results He may eat as tolerated, but he be develops abdominal pain, worsening white count or fevers, would consider making him clear liquid diet only Thank you for the consult. He does not likely need surgical intervention or endoscopy on this hospital admission. Please call if any questions arise, or the patient's symptoms worsen. Time Spent With Patient Time with patient: 25 - 35 minutes
[2020-01-13 17:36] LABS: Lactate (Lactic Acid) 1.3 mmol/L (0.7-2.1)
[2020-01-13] MEDS: TAMSULOSIN 0.4 MG CAPSULE 0.8 MG PO (19:05)
[2020-01-13] MEDS: LOVASTATIN 20 MG TABLET 40 MG PO (22:38)
[2020-01-14] VITALS (12 sets, daily range): BP systolic 107–132; BP diastolic 56–88; PULSE 60–75; RESP 18–29; TEMP 36.3–36.7; O2SAT 93–97
[2020-01-14] MEDS: PIPERACILLIN-TAZO 3.375 GM/50 ML FROZ.PIGGY IV ×4 (04:22→21:03)
[2020-01-14] MEDS: SODIUM CHLORIDE 0.9% FLUSH 10 ML IV ×3 (04:23→21:00)
[2020-01-14 04:50] LABS: Add Manual Diff / Slide Review NO; Basophils Absolute Auto 100 /uL (0-100); Basophils Percent Auto 0.6 % (0-2); Eosinophils Absolute Auto 100 /uL (0-450); Eosinophils Percent Auto 1.7 % (2-4); Hematocrit 35.4 % (41-53); Hemoglobin 12.3 g/dL (13.5-17.5); Lymphocytes Absolute Auto 700 /uL (1100-4500); Mean Corpuscular HGB Conc 34.8 % (30-36); Mean Corpuscular Hemoglobin 32.7 PG (26-34); Mean Corpuscular Volume 94.1 fL (80-100); Monocytes Absolute Auto 1000 /uL (0-900); Monocytes Percent Auto 12.1 % (3-14); Neutrophils Absolute Auto 6300 /uL (1500-7000); Neutrophils Percent Auto 76.6 % (50-75); Platelet Count 159 X10^3/uL (150-400); Red Blood Cell Count 3.77 X10^6/uL (4.5-5.9); White Blood Cell Count 8.2 X10^3/uL (4.5-11.0)
[2020-01-14 04:53] LABS: BUN Creatinine Ratio 24.5 (6-22); Blood Urea Nitrogen 35 mg/dL (9-20); Calcium 8.6 mg/dL (8.4-10.2); Carbon Dioxide 28 mmol/L (22-32); Chloride 100 mmol/L (98-107); Estimated Glomerular Filt Rate 48.1 mL/min (>60); Glucose 137 mg/dL (80-110); HEMOLYSIS < 15 (0-50); Potassium 3.6 mmol/L (3.4-5.1); Sodium 136 mmol/L (137-145)
[2020-01-14 05:09] LABS: Procalcitonin 4.64 ng/mL (<0.5)
[2020-01-14] MEDS: LEVOTHYROXINE 75 MCG TABLET PO (05:40)
[2020-01-14] MEDS: LIOTHYRONINE 5 MCG TABLET 10 MCG PO (05:40)
[2020-01-14] MEDS: PANTOPRAZOLE 20 MG TABLET PO (05:40)
[2020-01-14] MEDS: RIVAROXABAN 10 MG TABLET 20 MG PO (08:38)
[2020-01-14] MEDS: ENALAPRIL 5 MG TABLET PO (08:38)
[2020-01-14] MEDS: TRIAMTERENE/HCTZ 37.5/25 TABLET 1 CAP PO (08:39)
[2020-01-14] MEDS: METOPROLOL ER 25 MG TABLET PO (08:39)
[2020-01-14] MEDS: guaiFENesin ER 600 MG TAB 1200 MG PO ×2 (08:39→20:58)
[2020-01-14] MEDS: AMIODARONE 200 MG TABLET PO (08:40)
--- NOTE | 2020-01-14 09:21 | P.PN_ITS ---
Subjective Subjective Date Patient Seen: 01/14/20 Time Patient Seen: 09:22 Interval history: Leandro Allen is a 74-year-old male with a past medical history significant for hypertension, hyperlipidemia, paroxysmal atrial fibrillation/flutter status post ablation and on Xarelto, diabetes mellitus type 2, non-insulin using and diet controlled, COPD/asthma, obstructive sleep apnea on CPAP, GERD, and bladder tumor status post resection who presented with fever, nausea, vomiting and generalized weakness. He was found to have E. Coli bacteremia with sigmoid diverticulitis. He is seen for follow up today. The patient is resting comfortably in bedside chair. He denies complaints today including fever, chills, chest pain, palpitations, shortness of breath, nausea, vomiting, abdominal pain. His blood cultures are positive for E coli with sensitivities pending which are likely to result tomorrow. His procalcitonin was stable today and his leukocytosis has improved. Patient likely can discharge once sensitivites from his bacteremia result. Exam Vital Signs (past 8 hours): - 01/14/20 04:35 01/14/20 07:35 01/14/20 08:38 Temperature 97.8 F 97.5 F L Pulse Rate 72 69 69 Respiratory Rate 28 H 19 Blood Pressure 132/62 112/88 112/88 Pulse Oximetry 93 97 01/14/20 08:39 Temperature Pulse Rate 69 Respiratory Rate Blood Pressure 112/88 Pulse Oximetry Oxygen Delivery Method Room Air,CPAP Oxygen Flow Rate 0 Narrative Exam Narrative: General: Older male sitting in bedside chair and in no acute distress, well-developed, well-nourished, appropriately interactive. HEENT: Normocephalic, atraumatic. External ears without defect. Pupils equal, round, and reactive to light. Anicteric sclerae, moist conjunctivae, and no lid lag. Oropharynx free of erythema and cobble stoning with moist mucosa. Neck: Supple with full range of motion. No jugular venous distension. No lymphadenopathy or thyromegaly. Cardiovascular: Regular rate and rhythm without murmurs, rubs, or gallops appreciated. Pulmonary: Clear to auscultation bilaterally without crackles, wheezes, or rhonchi. Normal respiratory effort with no use of accessory muscles. Abdomen: Soft, obese, bowel sounds present, non-tender, non-distended. No CVA or suprapubic tenderness. No hepatosplenomegaly or masses appreciated. Extremities: No clubbing, cyanosis, or edema. Skin: Normal temperature, turgor, and texture; no rash, ulcers, or subcutaneous nodules appreciated. Neurological: Cranial nerves grossly intact. Psychiatric: Normal mood and affect. Alert and oriented to person, place, and time. Possible mild cognitive impairment with short-term memory recall deficit. Objective Labs Result Diagrams: 01/14/20 04:30 01/14/20 04:30 Labs: Laboratory Results - last 24 hr 01/12/20 01/13/20 01/13/20 19:25 15:00 15:36 WBC RBC Hgb Hct MCV MCH MCHC RDW Plt Count Neut % (Auto) Lymph % (Auto) [place] % (Auto) Eos % (Auto) Baso % (Auto) Neut # (Auto) Lymph # (Auto) [place] # (Auto) Eos # (Auto) Baso # (Auto) Sodium Potassium Chloride Carbon Dioxide BUN Creatinine Estimated GFR BUN/Creatinine Ratio Glucose Lactate Calcium Procalcitonin TSH 1.56 Urine Color Yellow Urine Appearance Clear Urine pH 5.0 Ur Specific [place] 1.010 Urine Protein Negative Urine Glucose (UA) Negative Urine Ketones Negative Urine Occult Blood 1+ H Urine Nitrate Negative Urine Bilirubin Negative Urine Urobilinogen 0.2 Ur Leukocyte Esterase Negative Urine RBC 1-5/hpf Urine WBC 0-1/hpf Urine Bacteria None seen Ur Culture Indicated? Cult not indicated A. baumannii (PCR) Not detected Marilee albicans (PCR) Not detected C. glabrata (PCR) Not detected C. krusei (PCR) Not detected C. parapsilosis (PCR) Not detected C. tropicalis (PCR) Not detected Enterobacteriac sp PCR Detected H E. cloacae complex PCR Not detected Enterococcus sp PCR Not detected E. coli (PCR) Detected H H. influenzae (PCR) Not detected Klebsiella oxytoca PCR Not detected Klebsiella pneumoniae Not detected List. monocytogenes PCR Not detected N. meningitidis (PCR) Not detected Proteus species (PCR) Not detected Serratia marcescens PCR Not detected Staphylococcus sp PCR Not detected Staph aureus (PCR) Not detected mecA-Methicil Res Gene Not Reportable Streptococcus sp PCR Not detected Group A Strep (PCR) Not detected Strep agalactiae (PCR) Not detected Strep pneumoniae (PCR) Not detected P. aeruginosa (PCR) Not detected Bryan/B-Vanco Res Genes Not Reportable KPC-Carbap Res Gene PCR Not detected 01/13/20 01/14/20 01/14/20 17:07 04:30 04:30 WBC 8.2 RBC 3.77 L Hgb 12.3 L Hct 35.4 L MCV 94.1 MCH 32.7 MCHC 34.8 RDW 14.0 Plt Count 159 Neut % (Auto) 76.6 H Lymph % (Auto) 9.0 L [place] % (Auto) 12.1 Eos % (Auto) 1.7 L Baso % (Auto) 0.6 Neut # (Auto) 6300 Lymph # (Auto) 700 L [place] # (Auto) 1000 H Eos # (Auto) 100 Baso # (Auto) 100 Sodium Potassium Chloride Carbon Dioxide BUN Creatinine Estimated GFR BUN/Creatinine Ratio Glucose Lactate 1.3 Calcium Procalcitonin 4.64 H TSH Urine Color Urine Appearance Urine pH Ur Specific [place] Urine Protein Urine Glucose (UA) Urine Ketones Urine Occult Blood Urine Nitrate Urine Bilirubin Urine Urobilinogen Ur Leukocyte Esterase Urine RBC Urine WBC Urine Bacteria Ur Culture Indicated? A. baumannii (PCR) Marilee albicans (PCR) C. glabrata (PCR) C. krusei (PCR) C. parapsilosis (PCR) C. tropicalis (PCR) Enterobacteriac sp PCR E. cloacae complex PCR Enterococcus sp PCR E. coli (PCR) H. influenzae (PCR) Klebsiella oxytoca PCR Klebsiella pneumoniae List. monocytogenes PCR N. meningitidis (PCR) Proteus species (PCR) Serratia marcescens PCR Staphylococcus sp PCR Staph aureus (PCR) mecA-Methicil Res Gene Streptococcus sp PCR Group A Strep (PCR) Strep agalactiae (PCR) Strep pneumoniae (PCR) P. aeruginosa (PCR) Bryan/B-Vanco Res Genes KPC-Carbap Res Gene PCR 01/14/20 04:30 WBC RBC Hgb Hct MCV MCH MCHC RDW Plt Count Neut % (Auto) Lymph % (Auto) [place] % (Auto) Eos % (Auto) Baso % (Auto) Neut # (Auto) Lymph # (Auto) [place] # (Auto) Eos # (Auto) Baso # (Auto) Sodium 136 L Potassium 3.6 Chloride 100 Carbon Dioxide 28 BUN 35 H Creatinine 1.43 H Estimated GFR 48.1 L BUN/Creatinine Ratio 24.5 H Glucose 137 H Lactate Calcium 8.6 Procalcitonin TSH Urine Color Urine Appearance Urine pH Ur Specific [place] Urine Protein Urine Glucose (UA) Urine Ketones Urine Occult Blood Urine Nitrate Urine Bilirubin Urine Urobilinogen Ur Leukocyte Esterase Urine RBC Urine WBC Urine Bacteria Ur Culture Indicated? A. baumannii (PCR) Marilee albicans (PCR) C. glabrata (PCR) C. krusei (PCR) C. parapsilosis (PCR) C. tropicalis (PCR) Enterobacteriac sp PCR E. cloacae complex PCR Enterococcus sp PCR E. coli (PCR) H. influenzae (PCR) Klebsiella oxytoca PCR Klebsiella pneumoniae List. monocytogenes PCR N. meningitidis (PCR) Proteus species (PCR) Serratia marcescens PCR Staphylococcus sp PCR Staph aureus (PCR) mecA-Methicil Res Gene Streptococcus sp PCR Group A Strep (PCR) Strep agalactiae (PCR) Strep pneumoniae (PCR) P. aeruginosa (PCR) Bryan/B-Vanco Res Genes KPC-Carbap Res Gene PCR Assessment & Plan Assessment & Plan narrative: Leandro Allen is a 74-year-old male with a past medical history significant for hypertension, hyperlipidemia, paroxysmal atrial fibrillation/flutter status post ablation and on Xarelto, diabetes mellitus type 2, non-insulin using and diet controlled, COPD/asthma, obstructive sleep apnea on CPAP, GERD, and bladder tumor status post resection who presented with fever, nausea, vomiting and generalized weakness. He remains admitted with diverticulitis and associated E. coli bacteremia. 1. Acute sigmoid diverticulitis with E. coli bacteremia, present on admission. Active. -Patient presented with fever, nausea, vomiting and generalized weakness. -Initial WBC elevated at 12.4 and procalcitonin 0.56. Procalcitonin stable around 4.5 today and WBC count improved. Continue to follow. -Lactic acid elevated at 2.5 and trended until under 2.0. -CRP 1.4 which is within normal limits if corrected for age. -CT abdomen and pelvis with contrast demonstrated sigmoid diverticulitis without evidence of diverticular abscess or macroscopic freeair. -Blood culture preliminarily positive for E coli in 1:4 bottles. Sensitivities pending, likely to result tomorrow per microbiology. -Received 1 L NS in ED. Continued gentle IV fluid hydration until adequately hydrated then discontinued. -Received ceftriaxone 2 g IV x1 in ED. Discontinued ceftriaxone. Started and continue Zosyn 3.375 g IV every 6 hours until blood culture sensitivities result. -Consulted general surgery, Dr. Quiñones, and appreciate her recommendations. 2. Pneumonia ruled out. -Patient denies any upper lower respiratory symptoms other than chronic mildly productive cough which is related to COPD and unchanged. No recent sick contacts. Patient reports he has been in isolation due to current COVID-19 pandemic. -Chest x-ray demonstrated bibasilar opacities left greater than right likely due to atelectasis. -CT chest without contrast did not demonstrate any acute pulmonary process with bibasilar atelectasis and scarring of the lung bases. -Respiratory PCR negative. Influenza A and B negative. COVID-19 pending and wi ll continue droplet precautions until ruled out. 3. Chronic obstructive pulmonary disease and restrictive lung disease, present on admission. Stable. -Does not represent COPD exacerbation. -PFTs on 04/19/2019 demonstrated mild COPD and restrictive disease with decreased diffusion capacity. -Continue respiratory therapy for evaluation and treatment. Continue Albuterol MDI inhaler with spacer 2 puffs every 4 hours as needed. 4. Diabetes mellitus type 2, non-insulin using and diet-controlled, present on admission. Stable. -Hemoglobin A1c 6.4% indicative of prediabetes. -Patient is under the care of a cra in [place] on [facility]. He is on no diabetic medications and uses various herbal supplements that he cannot recall. -Continue [facility] blood glucose checks and low-dose correctional scale insulin. -Continue diet control with carbohydrate consistent/heart healthy diet. 5. Chronic kidney disease stage 3, present on admission. Stable. -Initial creatinine 1.49. Baseline creatinine 1.50 on 07/19/2019. -Avoid nephrotoxic agents and optimize renal perfusion. -Continue to monitor renal function periodically. 6. Chronic atrial fibrillation/flutter status post ablation, present on admission. Stable. -The patient denies complaints of chest pain or palpitations. -EKG demonstrated sinus rhythm with right bundle branch block and left anterior fascicular block without any acute ischemic changes such as ST elevation or depression. -Continue rhythm control with amiodarone 200 mg daily, rate control with metoprolol succinate 25 mg daily in the morning and 12.5 mg daily at bedtime and anticoagulation with Xarelto 20 mg daily. 7. Hypertension, chronic, present on admission. Stable. -Blood pressure is adequately controlled with initial BP 139/58 upon arrival to the ED. -Continue home enalapril 5 mg daily metoprolol succinate 25 mg daily in the morning and 12.5 mg daily at bedtime and triamterene/hydrochlorothiazide 37.5/25 mg daily. 8. Hyperlipidemia, chronic, present on admission. Stable. -Continue home lovastatin 40 mg daily. 9. Hypothyroidism, chronic, present on admission. Stable. -TSH normal at 1.56. -Continue levothyroxine 75 mcg daily and liothyronine 10 mcg daily. 10. BPH, chronic, present on admission. Stable. -Continue tamsulosin 0.8 mg daily at 1730. 11. GERD, chronic, present on admission. Stable. -Continue home PPI with Protonix 20 mg daily. 12. Obstructive sleep apnea on CPAP, chronic, present on admission. Stable. -Continue home CPAP per RT protocol. Code status: Full code DVT prophylaxis: Xarelto and SCDs Disposition: Patient remains inpatient for bacteremia. Can discharge once sensitivities from blood culture are resulted, which per microbiology is likely to be tomorrow. Quality VTE Deep Vein Thrombosis/Pulmonary Embolism Present on Admission: No
[2020-01-14] MEDS: INSULIN ASPART 100 UNIT/ML INSULN PEN SUBCUT (12:10)
[2020-01-14] MEDS: TAMSULOSIN 0.4 MG CAPSULE 0.8 MG PO (17:13)
[2020-01-14] MEDS: METOPROLOL ER 25 MG TABLET 12.5 MG PO (20:57)
[2020-01-14] MEDS: LOVASTATIN 20 MG TABLET 40 MG PO (20:59)
[2020-01-15 01:18] VITALS: BP 90/57; PULSE 67; RESP 20; TEMP 36.3; O2SAT 95
[2020-01-15] MEDS: PIPERACILLIN-TAZO 3.375 GM/50 ML FROZ.PIGGY IV ×2 (03:17→08:38)
[2020-01-15 04:21] VITALS: BP 127/64; RESP 20; TEMP 36.4; O2SAT 96
[2020-01-15 05:10] LABS: BUN Creatinine Ratio 19.2 (6-22); Blood Urea Nitrogen 29 mg/dL (9-20); Calcium 8.6 mg/dL (8.4-10.2); Carbon Dioxide 30 mmol/L (22-32); Chloride 100 mmol/L (98-107); Estimated Glomerular Filt Rate 45.2 mL/min (>60); Glucose 116 mg/dL (80-110); HEMOLYSIS < 15 (0-50); Potassium 3.7 mmol/L (3.4-5.1); Sodium 136 mmol/L (137-145)
[2020-01-15 05:26] LABS: Procalcitonin 3.02 ng/mL (<0.5)
[2020-01-15 05:38] LABS: COVID19 Sendout Not Detected (Not Detected)
[2020-01-15] MEDS: LEVOTHYROXINE 75 MCG TABLET PO (06:16)
[2020-01-15] MEDS: PANTOPRAZOLE 20 MG TABLET PO (06:17)
[2020-01-15 08:00] VITALS: BP 119/67; PULSE 60; RESP 19; TEMP 37.3; O2SAT 94
[2020-01-15] MEDS: TRIAMTERENE/HCTZ 37.5/25 TABLET 1 CAP PO (08:33)
[2020-01-15] MEDS: ENALAPRIL 5 MG TABLET PO (08:33)
[2020-01-15] MEDS: AMIODARONE 200 MG TABLET PO (08:34)
[2020-01-15] MEDS: LIOTHYRONINE 5 MCG TABLET 10 MCG PO (08:34)
[2020-01-15] MEDS: SODIUM CHLORIDE 0.9% FLUSH 10 ML IV (08:35)
[2020-01-15] MEDS: guaiFENesin ER 600 MG TAB 1200 MG PO (08:35)
[2020-01-15] MEDS: RIVAROXABAN 10 MG TABLET 20 MG PO (08:35)
[2020-01-15] MEDS: METOPROLOL ER 25 MG TABLET PO (08:35)
--- NOTE | 2020-01-15 10:03 | P.DS_ITS ---
History of Present Illness History of Present Illness Date Patient Seen: 01/15/20 Time Patient Seen: 10:05 Chief complaint: Fever, N/V decreased LOC Narrative: As per GUALBERTO Cortes: Mr. Leandro Allen is a 74-year-old male with history significant for a history of hypertension, atrial flutter anticoagulated on Xarelto, type 2 diabetes that is diet controlled, COPD, asthma, obstructive sleep apnea, GERD, diverticulosis, adenomas of colon and bladder tumor who presents to the hospital for a fever for 1 day the patient states he began having symptoms of fever yesterday and today developed nausea and vomiting with generalized weakness. He has had associated symptoms of intermittent dizziness with some wheezing and increased symptoms of reflux. Patient has a history of COPD and asthma and has had a chronic cough without change in sputum or character. He reports having no recent sick contacts and in fact states that he has been ?holed up for the last several days. His family provides the history that he had the flu early November and has not quite returned to baseline since. He denies headaches or visual changes, nasal congestion or sore throat. He has had no chest pain or palpitations. He denies shortness of breath and reports exercising daily on a treadmill. He has had no abdominal pain, constipation or diarrhea. Denies urinary symptoms and has nocturia 2-3 times daily. He is normally independent in activities of daily living. Upon arrival to the ER has a temperature of 99.3?, heart rate of 80, blood pressure 139/58, respiratory rate of 22 saturating 91% on room air. On imaging is checks x-ray reveals left greater than right bibasilar opacities and enlarged heart silhouette. On 12 lead EKG is sinus rhythm with a right bundle branch block and left anterior fascicular block. On laboratory analysis his elevated white count at 12.4, hemoglobin 13.2, hematocrit 38.4 and platelets of 118. He has an increased neutrophil count 89%. On chemistries is electrolytes are within normal range and he has a BUN of 37 and creatinine 1.49 for an EGFR of 45.9. His nonfasting glucose is 162. His liver functions are all within normal range. He has a total CK of 1057, MBs of 1.07, an index of 1.0%. His troponin is less than 0.012 and has a BNP of 330. On coagulation he has a PT of 18, INR 1.6, PTT of 33. He has a CRP of 1.4 and a procalcitonin 0.56 with a lactic acid of 2.5. He respiratory panel and COVID-19 screening are pending. In the ER the patient received normal saline 1 L, Tylenol, albuterol treatments and was started on Rocephin 2 g IV. The patient is admitted to the medicine service for pneumonia. Discharge Providers Provider Date of admission: 01/12/20 20:43 Discharge Date: 01/15/20 Primary care physician: Robbie Mccullough MD Consults: 01/12/20 21:14 Consult to Respiratory Therapy Evaluate & Treat Comment: PNA, Poss COVID-19 Physician Instructions: Evaluate and treat 01/12/20 21:18 Consult to Dietitian, Adult Routine Comment: Reason For Exam: Obesity, BMI 36, type 2 diabetes w/ hyperglycemia 01/12/20 21:19 Consult to Discharge Planning Routine Comment: 01/13/20 15:49 Consult to General Surgery Routine Comment: Consulting Provider: Rosalba Montez Reason for consultation: Diverticulitis Has provider been notified: Yes Discharge provider: Latrell Billy DO Summary Hospital Course Hospital Course: Leandro Allen is a 74-year-old male with a past medical history significant for hypertension, hyperlipidemia, paroxysmal atrial fibrillation/flutter status post ablation and on Xarelto, diabetes mellitus type 2, non-insulin using and diet controlled, COPD/asthma, obstructive sleep apnea on CPAP, GERD, and bladder tumor status post resection who presented with fever, nausea, vomiting and generalized weakness. He was admitted for diverticulitis with E. coli bacteremia. His cultures returned back with lozoya-sensitive E. coli in the blood and he was discharged home to complete 14 day course with augmentin for bacteremia. 1. Acute sigmoid diverticulitis with E. coli bacteremia, present on admission. Active. -Patient presented with fever, nausea, vomiting and generalized weakness. -Initial WBC elevated at 12.4 and procalcitonin 0.56. Procalcitonin did ultimately start to decline significantly on discharge date and WBC count improved to normal. -Lactic acid elevated at 2.5 and trended until under 2.0. -CRP 1.4 which is within normal limits if corrected for age. -CT abdomen and pelvis with contrast demonstrated sigmoid diverticulitis without evidence of diverticular abscess or macroscopic free air. -Blood culture preliminarily positive for E coli in 1:4 bottles. Cultures were lozoya-sensitive. Will discharge on oral augmentin for diverticulitis -Received 1 L NS in ED. Continued gentle IV fluid hydration until adequately hydrated then discontinued. -Received ceftriaxone 2 g IV x1 in ED. Discontinued ceftriaxone. Started and continued Zosyn 3.375 g IV every 6 hours until blood culture sensitivities resulted and then patient was discharged on augmentin as noted above to complete 14 day total course for bacteremia. -Consulted general surgery, Dr. Quiñones, and appreciate her recommendations. 2. Pneumonia ruled out. -Patient denied any upper lower respiratory symptoms other than chronic mildly productive cough which is related to COPD and unchanged. No recent sick conta cts. Patient reported he has been in isolation due to current COVID-19 pandemic. -Chest x-ray demonstrated bibasilar opacities left greater than right likely due to atelectasis. -CT chest without contrast did not demonstrate any acute pulmonary process with bibasilar atelectasis and scarring of the lung bases. -Respiratory PCR negative. Influenza A and B negative. COVID-19 result resulted as negative during his admission. 3. Chronic obstructive pulmonary disease and restrictive lung disease, present on admission. Stable. -Does not represent COPD exacerbation. -PFTs on 04/19/2019 demonstrated mild COPD and restrictive disease with decreased diffusion capacity. -No changes were made to his home COPD regimen. 4. Diabetes mellitus type 2, non-insulin using and diet-controlled, present on admission. Stable. -Hemoglobin A1c 6.4% indicative of prediabetes. -Patient is under the care of a financial examiner in [place] on [facility]. He is on no diabetic medications and uses various herbal supplements that he cannot recall. 5. Chronic kidney disease stage 3, present on admission. Stable. -Initial creatinine 1.49. Baseline creatinine 1.50 on 07/19/2019. Remained stable throughout this admission. 6. Chronic atrial fibrillation/flutter status post ablation, present on admission. Stable. -The patient denied complaints of chest pain or palpitations. -EKG demonstrated sinus rhythm with right bundle branch block and left anterior fascicular block without any acute ischemic changes such as ST elevation or depression. -Continue rhythm control with amiodarone 200 mg daily, rate control with metoprolol succinate 25 mg daily in the morning and 12.5 mg daily at bedtime and anticoagulation with Xarelto 20 mg daily. 7. Hypertension, chronic, present on admission. Stable. -Blood pressure is adequately controlled with initial BP 139/58 upon arrival to the ED. -Continue home enalapril 5 mg daily metoprolol succinate 25 mg daily in the morning and 12.5 mg daily at bedtime and triamterene/hydrochlorothiazide 37.5/25 mg daily. 8. Hyperlipidemia, chronic, present on admission. Stable. -Continue home lovastatin 40 mg daily. 9. Hypothyroidism, chronic, present on admission. Stable. -TSH normal at 1.56. -Continue levothyroxine 75 mcg daily and liothyronine 10 mcg daily. 10. BPH, chronic, present on admission. Stable. -Continue tamsulosin 0.8 mg daily at 1730. 11. GERD, chronic, present on admission. Stable. -Continue home PPI with Protonix 20 mg daily. 12. Obstructive sleep apnea on CPAP, chronic, present on admission. Stable. -Continue home CPAP Exam Vital Signs (past 8 hours): - 01/15/20 04:21 01/15/20 08:00 Temperature 97.5 F L 99.1 F Pulse Rate 60 Respiratory Rate 20 19 Blood Pressure 127/64 119/67 Pulse Oximetry 96 94 Oxygen Delivery Method Room Air Oxygen Flow Rate 0 Narrative Exam Narrative: General: Older male sitting in bedside chair and in no acute distress, well-developed, well-nourished, appropriately interactive. HEENT: Normocephalic, atraumatic. External ears without defect. Pupils equal, round, and reactive to light. Anicteric sclerae, moist conjunctivae, and no lid lag. Oropharynx free of erythema and cobble stoning with moist mucosa. Neck: Supple with full range of motion. No jugular venous distension. No lymphadenopathy or thyromegaly. Cardiovascular: Regular rate and rhythm without murmurs, rubs, or gallops appreciated. Pulmonary: Clear to auscultation bilaterally without crackles, wheezes, or rhonchi. Normal respiratory effort with no use of accessory muscles. Abdomen: Soft, obese, bowel sounds present, non-tender, non-distended. No CVA or suprapubic tenderness. No hepatosplenomegaly or masses appreciated. Extremities: No clubbing, cyanosis, or edema. Skin: Normal temperature, turgor, and texture; no rash, ulcers, or subcutaneous nodules appreciated. Neurological: Cranial nerves grossly intact. Psychiatric: Normal mood and affect. Alert and oriented to person, place, and time. Possible mild cognitive impairment with short-term memory recall deficit. Objective Labs Result Diagrams: 01/14/20 04:30 01/15/20 04:50 Labs: Laboratory Results - last 24 hr 01/12/20 01/15/20 01/15/20 19:25 04:50 04:50 Sodium 136 L Potassium 3.7 Chloride 100 Carbon Dioxide 30 BUN 29 H Creatinine 1.51 H Estimated GFR 45.2 L BUN/Creatinine Ratio 19.2 Glucose 116 H Calcium 8.6 Procalcitonin 3.02 H COVID-19 PCR Not detected Discharge Plan Discharge Plan Patient Disposition: Home Discharge comment: You were admitted to the hospital for diverticulitis. You improved with IV antibiotics. Because of your initial presentation you were tested for the novel caronavirus which was negative. You are being discharged home on oral antibiotics. No other medication changes are needed at this time. Discharge orders & Medications Prescriptions: New amoxicillin-pot clavulanate 875-125 mg tablet 1 tab PO TID 11 Days Qty: 33 RF: 0 Continued metoprolol succinate [Toprol XL] 25 MG tablet extended release 24 hr 25 mg PO DAILY Qty: 0 RF: 0 magnesium oxide 400 MG tablet 1 tab PO Q DAY Qty: 0 RF: 0 tamsulosin [Flomax] 0.4 MG capsule,extended release 24hr 0.8 mg PO 1730 Qty: 60 RF: 3 lovastatin 40 MG tablet 40 mg PO Q DAY Qty: 90 RF: 3 omeprazole 20 MG capsule,delayed release(DR/EC) 20 mg PO QDAY Qty: 90 RF: 3 potassium chloride [Klor-Con M20] 20 MEQ tablet,ER particles/crystals 20 meq PO AMCC Qty: 90 RF: 0 enalapril maleate 5 MG tablet 5 mg PO QDAY Qty: 90 RF: 1 (DME) blood sugar diagnostic [True Metrix Glucose Test Strip] strip See Dose Instructions .ROUTE .MEDSUPPLY Qty: 100 RF: 4 metoprolol succinate 25 mg Tablet Extended Release 24 Hr 12.5 mg PO BEDTIME RF: 0 levothyroxine 75 mcg Capsule 75 mcg PO DAILY RF: 0 triamterene-hydrochlorothiazid 37.5-25 mg capsule 1 cap PO DAILY RF: 0 amiodarone 200 mg tablet 200 mg PO QPM RF: 0 liothyronine 5 mcg tablet 10 mcg PO DAILY RF: 0 Xarelto 20 mg tablet 20 mg PO QPM RF: 0 Follow up/Referrals: Robbie Mccullough MD [Primary Care Provider] - Diet/Activity/Treatments Diet: Diet as Tolerated Activity: As tolerated Visit Report/Discharge Packet Instructions: DI for Diverticulitis, Amoxicillin/Clavulanate Potassium (By mouth) Visit Report Forms: Patient Portal/API, Stroke Signs & Symptoms Discharge Data Primary Care Provider: Robbie Mccullough Discharges patient from system. Discharge Date/Time: 01/15/20 11:16 Quality VTE Deep Vein Thrombosis/Pulmonary Embolism Present on Admission: No
[2020-01-15 10:50] VITALS: BP 117/57; PULSE 71; RESP 18; TEMP 36.3; O2SAT 97
== END 2020-01-15 11:16 | disposition home or self-care (01) | DRG 392 ==
LOC: ED 20:42 → AC 20:45 → ICU 01-13 09:40
PROVIDERS: Internal Medicine; Admitting Provider Nurse Practitioner Adult Health; Emergency Provider Emergency Medicine; PCP Internal Medicine; Referring Provider Emergency Medicine; Visit Provider Nurse Practitioner Adult Health
DX: K57.32 Diverticulitis of large intestine without perforation or abscess without bleeding (principal); I45.2 Bifascicular block; R78.81 Bacteremia; I48.92 Unspecified atrial flutter; N18.3 Chronic kidney disease, stage 3 (moderate); J44.9 Chronic obstructive pulmonary disease, unspecified; I48.0 Paroxysmal atrial fibrillation; E11.9 Type 2 diabetes mellitus without complications; I12.9 Hypertensive chronic kidney disease with stage 1 through stage 4 chronic kidney disease, or unspecified chronic kidney disease; K21.9 Gastro-esophageal reflux disease without esophagitis; G47.33 Obstructive sleep apnea (adult) (pediatric); B96.20 Unspecified Escherichia coli [E. coli] as the cause of diseases classified elsewhere; N40.0 Benign prostatic hyperplasia without lower urinary tract symptoms; E03.9 Hypothyroidism, unspecified; E66.9 Obesity, unspecified; Z03.818 Encounter for observation for suspected exposure to other biological agents ruled out; Z79.01 Long term (current) use of anticoagulants; Z68.37 Body mass index [BMI] 37.0-37.9, adult
CPT/HCPCS: 36415; 71045; 71260; 74177; 80048; 80053; 81001; 82550; 82553; 82962; 83036; 83605; 83735; 83880; 84145; 84443; 84484; 85025; 85610; 85730; 86140; 87040; 87150; 87186; 87205; 87502; 87633; 87635; 87797; 93005; 94640; 96361; 96365; 99232; 99284; C9113; J0696; J2405; J2543; Q9967

== ENCOUNTER 2020-04-28 11:19 | Emergency (ER) | payer MEDICARE, SELFPAY ==
[2020-04-28 11:25] VITALS: BP 176/81; PULSE 81; RESP 15; TEMP 37.4; O2SAT 96; BMI 37.5
--- NOTE | 2020-04-28 11:36 | ED_ITS ---
HPI - Male Genitourinary <Mindy SamGUALBERTO - Last Filed: 04/28/20 13:48> General Chief complaint: Urogenital-Male Stated complaint: Bladder infection Time Seen by Provider: 04/28/20 11:21 History of Present Illness HPI Narrative: 75yo male with a history of bladder CA (currently in remission), frequent UTIs, A-fib, CKD, and HTN, presents to the emergency department for increased dysuria, urinary frequency, and bladder irritation for the past 24 hours. Patient states he had a bladder scope approximately 5 days ago to check for reoccurring cancer. Patient had an episode of diarrhea a few days after (which has resolved) and then he developed dysuria. Denies rectal pressure. Patient states he usually gets a urinary tract infection after the scopes. P atient reported occasional chills but denies fever, abdominal pain, nausea, vomiting, diarrhea, chest pain, shortness of breath, or COVID exposure. Patient reports he is taking Xarelto. Related Data Home Medications Medication Instructions Recorded Confirmed magnesium oxide 1 tab PO Q DAY #0 07/31/16 01/13/20 metoprolol succinate [Toprol XL] 25 mg PO DAILY #0 07/31/16 01/12/20 amiodarone 200 mg tablet 200 mg PO QPM 04/18/19 01/13/20 liothyronine 5 mcg tablet 10 mcg PO DAILY tab 04/18/19 01/12/20 rivaroxaban 20 mg tablet 20 mg PO QPM 04/18/19 01/13/20 levothyroxine 75 mcg PO DAILY 01/12/20 01/12/20 metoprolol succinate 12.5 mg PO BEDTIME 01/12/20 01/12/20 triamterene-hydrochlorothiazid 1 cap PO DAILY 01/12/20 01/12/20 Previous Rx's Medication Instructions Recorded tamsulosin [Flomax] 0.8 mg PO 1730 #60 cap 10/14/16 lovastatin 40 mg PO Q DAY #90 tab 03/04/17 omeprazole 20 mg PO QDAY #90 cap 03/04/17 potassium chloride [Klor-Con M20] 20 meq PO AMCC #90 tab 05/27/17 enalapril maleate 5 mg PO QDAY #90 tab 08/03/17 blood sugar diagnostic #100 each 04/23/18 ciprofloxacin HCl [Cipro] 500 mg PO BID 14 Days #28 tab 04/28/20 Allergies Allergy/AdvReac Type Severity Reaction Status Date / Time latex Allergy Verified 04/28/20 11:32 Review of Systems <GUALBERTO Soto - Last Filed: 04/28/20 13:48> Review of Systems Narrative: REVIEW OF SYSTEMS: GENERAL: Denies fever or chills. HENT: No head trauma. CARDIOVASCULAR: No chest pain. RESPIRATORY: No shortness of breath or cough. GASTROINTESTINAL: No nausea, vomiting, or abdominal pain, see HPI. GENITOURINARY: Reports dysuria, See HPI. Denies concerns for STIs. MUSCULOSKELETAL: No trauma. INTEGUMENTARY: No rash, lesions, or pruritus. NEURO: No memory loss or confusion. Patient History <GUALBERTO Soto - Last Filed: 04/28/20 13:48> Medical History Asthma (Inactive 11/04/11) Atrial flutter (03/20/17) Benign prostatic hyperplasia (11/04/11) Body mass index (BMI) of 30.0 to 39.9 (10/27/11) Controlled type 2 diabetes mellitus (10/03/16) Diverticulosis of sigmoid colon (03/20/17) Essential hypertension (Inactive 10/27/11) Gastroesophageal reflux disease (03/01/14) Hyperlipidemia (Inactive 10/27/11) Malignant neoplasm of urinary bladder (10/11/16) Tubular adenoma of colon (03/20/17) Surgical History History of cardiac radiofrequency ablation (Acute) History of cystoscopy Family History Father CAD (coronary artery disease) Hyperlipidemia Hypertension Mother CAD (coronary artery disease) Hypertension Hyperlipidemia Social History household members: spouse and family Smoking Status: Never smoker Smoking Status: Never smoker alcohol intake frequency: 0-2 drinks per day Substance Use Type: does not use Exam <GUALBERTO Soto - Last Filed: 04/28/20 13:48> Initial Vital Signs Initial Vital Signs: Vital Signs Temperature 99.3 F 04/28/20 11:25 Pulse Rate 81 04/28/20 11:25 Respiratory Rate 15 04/28/20 11:25 Blood Pressure 176/81 H 04/28/20 11:25 Pulse Oximetry 96 04/28/20 11:25 PHYSICAL EXAMINATION: GENERAL: Well groomed, alert, and cooperative. Answers questions promptly and appropriately. Vital signs noted. HENT: Normocephalic, atraumatic. Hearing intact. EYES: No periorbital swelling. CARDIOVASCULAR: Regular rate. RESPIRATORY: Normal respiratory rate, trachea midline, airway patent. No stridor, nasal flaring or accessory muscle use. GASTROINTESTINAL: Bowel sounds normoactive. Abdomen is soft and non-tender. No organomegaly, no palpable masses. GENITALURINARY: No CVA tenderness. MUSCULOSKELETAL: Normal gait and coordination. Equal tone and mass bilaterally. SKIN: Warm, dry, soft, appropriate color for ethnicity. No lesions, rashes, or wounds to visulized areas. NEURO: Alert and Oriented X 3. Good coordination. No ataxia, or sensory deficits, or cognitive issues. PSYCH: Appropriate affect and mood. <Jon Elliott DO - Last Filed: 04/28/20 18:25> Initial Vital Signs Initial Vital Signs: Vital Signs Temperature 99.3 F 04/28/20 11:25 Pulse Rate 81 04/28/20 11:25 Respiratory Rate 15 04/28/20 11:25 Blood Pressure 176/81 H 04/28/20 11:25 Pulse Oximetry 96 04/28/20 11:25 Course <GUALBERTO Soto - Last Filed: 04/28/20 13:48> Course Course Narrative: Patient given a dose of Pyridium per request for dysuria. Orders Ordered: ED Orders 04/28/20 11:24 Urine Culture Stat Urine Microscopic Stat 04/28/20 12:30 Complete Blood Count AUTO DIFF Stat Comprehensive Metabolic Panel Stat Discontinued Medications Phenazopyridine HCl (Pyridium) 100 mg PO NOW ONE Stop: 04/28/20 13:03 Last Admin: 04/28/20 13:05 Dose: 100 mg Documented by: [facility] Consultations Consultation #1: Patient staffed with Dr. Elliott discussed test, test results, and plan of care. Vital Signs Vital signs: Vital Signs - 8 hr 04/28/20 11:25 Temperature 99.3 F Pulse Rate 81 Respiratory Rate 15 Blood Pressure 176/81 H Pulse Oximetry 96 <Jon Elliott DO - Last Filed: 04/28/20 18:25> Orders Ordered: ED Orders 04/28/20 11:24 Urine Culture Stat Urine Microscopic Stat 04/28/20 12:30 Complete Blood Count AUTO DIFF Stat Comprehensive Metabolic Panel Stat Discontinued Medications Phenazopyridine HCl (Pyridium) 100 mg PO NOW ONE Stop: 04/28/20 13:03 Last Admin: 04/28/20 13:05 Dose: 100 mg [facility]ed [facility]: [facility] Vital Signs Vital signs: Vital Signs - 8 hr 04/28/20 11:25 Temperature 99.3 F Pulse Rate 81 Respiratory Rate 15 Blood Pressure 176/81 H Pulse Oximetry 96 MDM - Male Genitourinary <GUALBERTO Soto - Last Filed: 04/28/20 13:48> Medical Records Attestation: I reviewed the patient's medical records. Lab Data Attestation: I reviewed the patient's lab results. Result diagrams: 04/28/20 12:30 04/28/20 12:30 Labs: Lab Results 04/28/20 04/28/20 04/28/20 Range/Units 11:24 12:30 12:30 WBC 12.9 H (4.5-11.0) X10^3/uL RBC 4.14 L (4.5-5.9) X10^6/uL Hgb 12.8 L (13.5-17.5) g/dL Hct 37.9 L (41-53) % MCV 91.6 (80-100) fL MCH 30.9 (26-34) PG MCHC 33.7 (30-36) % RDW 13.2 (11.6-14.8) % Plt Count 186 (150-400) X10^3/uL Neut % (Auto) 85.7 H (50-75) % Lymph % (Auto) 4.4 L (25-40) % [place] % (Auto) 9.1 (3-14) % Eos % (Auto) 0.5 L (2-4) % Baso % (Auto) 0.3 (0-2) % Neut # (Auto) 41913 H (5695-2633) /uL Lymph # (Auto) 600 L (4251-5543) /uL [place] # (Auto) 1200 H (0-900) /uL Eos # (Auto) 100 (0-450) /uL Baso # (Auto) 0 (0-100) /uL Sodium 137 (137-145) mmol/L Potassium 3.9 (3.4-5.1) mmol/L Chloride 103 (98-107) mmol/L Carbon Dioxide 25 (22-32) mmol/L BUN 22 H (9-20) mg/dL Creatinine 1.09 (0.66-1.25) mg/dL Estimated GFR > 60.0 (>60) mL/min BUN/Creatinine Ratio 20.2 (6-22) Glucose 135 H (80-110) mg/dL Calcium 9.0 (8.4-10.2) mg/dL Total Bilirubin 0.6 (0.2-1.3) mg/dL AST 25 (17-59) IU/L ALT 27 (<50) IU/L Alkaline Phosphatase 77 (38-126) U/L Total Protein 7.5 (6.3-8.2) g/dL Albumin 4.1 (3.5-5.0) g/dL Globulin 3.4 (1.7-4.1) g/dL Albumin/Globulin Ratio 1.2 (1.0-2.8) Urine RBC 1-5/hpf (0-5/HPF) Urine WBC 5-10/hpf H (0-5/HPF) Amorphous Sediment 2+ Urine Bacteria None seen (None) Ur Culture Indicated? Specimen cultured Urine Dip Bedside Urine Glucose Negative Bedside Urine Bilirubin + 1 Bedside Urine Ketone - Negative Urine Specific [place] 1.025 Bedside Urine Occult Blood ++ Bedside Urine pH 5.5 Bedside Urine Protein + 30 Bedside Urine Urobilinogen - Negative Bedside Urine Nitrite + Positive Bedside Urine Leukocytes + 70 Esterase MDM Narrative Medical decision making narrative: 75-year-old male presents emergency department for dysuria post cystoscopy. Nitrates, leukocytes, and blood noted in urine, symptoms correlate with urinary tract infection and patient reports recent invasive procedure. Due to procedure in symptoms, patient is treated for prostatitis. I discussed with patient that culture will be sent to lab, he will receive a call in 2 days if antibiotics need to be switched. I counseled him about the side effects of ciprofloxacin including tendon rupture and to seek medical care if he develops any tendon pain. Patient was encouraged to not significantly increased activity in the next 2 weeks. Patient is hemodynamically stable, no returns for sepsis or hyperglycemia. Renal function has improved since last laboratory evaluation. Return precautions given for new or worsening symptoms. Patient agreed to plan of care verbalized understanding. <Jon Elliott DO - Last Filed: 04/28/20 18:25> Lab Data Labs: Lab Results 04/28/20 04/28/20 04/28/20 Range/Units 11:24 12:30 12:30 WBC 12.9 H (4.5-11.0) X10^3/uL RBC 4.14 L (4.5-5.9) X10^6/uL Hgb 12.8 L (13.5-17.5) g/dL Hct 37.9 L (41-53) % MCV 91.6 (80-100) fL MCH 30.9 (26-34) PG MCHC 33.7 (30-36) % RDW 13.2 (11.6-14.8) % Plt Count 186 (150-400) X10^3/uL Neut % (Auto) 85.7 H (50-75) % Lymph % (Auto) 4.4 L (25-40) % [place] % (Auto) 9.1 (3-14) % Eos % (Auto) 0.5 L (2-4) % Baso % (Auto) 0.3 (0-2) % Neut # (Auto) 40144 H (9426-4823) /uL Lymph # (Auto) 600 L (6151-2786) /uL [place] # (Auto) 1200 H (0-900) /uL Eos # (Auto) 100 (0-450) /uL Baso # (Auto) 0 (0-100) /uL Sodium 137 (137-145) mmol/L Potassium 3.9 (3.4-5.1) mmol/L Chloride 103 (98-107) mmol/L Carbon Dioxide 25 (22-32) mmol/L BUN 22 H (9-20) mg/dL Creatinine 1.09 (0.66-1.25) mg/dL Estimated GFR > 60.0 (>60) mL/min BUN/Creatinine Ratio 20.2 (6-22) Glucose 135 H (80-110) mg/dL Calcium 9.0 (8.4-10.2) mg/dL Total Bilirubin 0.6 (0.2-1.3) mg/dL AST 25 (17-59) IU/L ALT 27 (<50) IU/L Alkaline Phosphatase 77 (38-126) U/L Total Protein 7.5 (6.3-8.2) g/dL Albumin 4.1 (3.5-5.0) g/dL Globulin 3.4 (1.7-4.1) g/dL Albumin/Globulin Ratio 1.2 (1.0-2.8) Urine RBC 1-5/hpf (0-5/HPF) Urine WBC 5-10/hpf H (0-5/HPF) Amorphous Sediment 2+ Urine Bacteria None seen (None) Ur Culture Indicated? Specimen cultured Urine Dip Bedside Urine Glucose Negative Bedside Urine Bilirubin + 1 Bedside Urine Ketone - Negative Urine Specific [place] 1.025 Bedside Urine Occult Blood ++ Bedside Urine pH 5.5 Bedside Urine Protein + 30 Bedside Urine Urobilinogen - Negative Bedside Urine Nitrite + Positive Bedside Urine Leukocytes + 70 Esterase Discharge Plan Departure Patient Disposition: Home Clinical Impression: Acute prostatitis Discharge Date/Time: 04/28/20 13:08 Instructions: DI for Acute Prostatitis Activity Restrictions/Additional Instructions: Thank you for entrusting me with your care today. As discussed, it appears you have an infection in your urine, with this procedure it is possible the infection may extend to prostate. I prescribed you a longer duration of antibiotics to cover for a urinary tract infection and prostatitis. Please take these as directed. A side effect of this medication can be tendon rupture, do not significantly increase activity while taking these medications. These medications were sent to [facility] in [place]. Return emergency department for any new or worsening symptoms such as high fevers, uncontrollable vomiting, chest pain, shortness of breath, abdominal pain, or any other concerns. Please follow-up with your primary care provider in 1-2 weeks for further evaluation. Prescriptions: New ciprofloxacin HCl [Cipro] 500 mg tablet 500 mg PO BID 14 Days Qty: 28 RF: 0 No Action metoprolol succinate [Toprol XL] 25 MG tablet extended release 24 hr 25 mg PO DAILY Qty: 0 RF: 0 magnesium oxide 400 MG tablet 1 tab PO Q DAY Qty: 0 RF: 0 tamsulosin [Flomax] 0.4 MG capsule,extended release 24hr 0.8 mg PO 1730 Qty: 60 RF: 3 lovastatin 40 MG tablet 40 mg PO Q DAY Qty: 90 RF: 3 omeprazole 20 MG capsule,delayed release(DR/EC) 20 mg PO QDAY Qty: 90 RF: 3 potassium chloride [Klor-Con M20] 20 MEQ tablet,ER particles/crystals 20 meq PO AMCC Qty: 90 RF: 0 enalapril maleate 5 MG tablet 5 mg PO QDAY Qty: 90 RF: 1 (DME) blood sugar diagnostic [True Metrix Glucose Test Strip] strip See Dose Instructions .ROUTE .MEDSUPPLY Qty: 100 RF: 4 metoprolol succinate 25 mg Tablet Extended Release 24 Hr 12.5 mg PO BEDTIME RF: 0 levothyroxine 75 mcg Capsule 75 mcg PO DAILY RF: 0 triamterene-hydrochlorothiazid 37.5-25 mg capsule 1 cap PO DAILY RF: 0 amiodarone 200 mg tablet 200 mg PO QPM RF: 0 liothyronine 5 mcg tablet 10 mcg PO DAILY RF: 0 Xarelto 20 mg tablet 20 mg PO QPM RF: 0 Referrals: Robbie Mccullough MD [Primary Care Provider] - <Jon Elliott DO - Last Filed: 04/28/20 18:25> Cosign ED Attending Cosignature Attestation: I was immediately available in the department for consultation. This documentation has been reviewed and I agree with assessment and plan. Supervised by Jon Elliott DO
[2020-04-28 12:07] LABS: Bacteria Urine None Seen
[2020-04-28 12:17] LABS: RBC Urine 1-5/HPF (0-5/HPF); WBC Urine 5-10/HPF (0-5/HPF)
[2020-04-28 12:18] LABS: Amorphous Sediment Urine 2+; Culture Indicated Urine Specimen Cultured
[2020-04-28 12:44] LABS: Add Manual Diff / Slide Review NO; Basophils Absolute Auto 0 /uL (0-100); Basophils Percent Auto 0.3 % (0-2); Eosinophils Absolute Auto 100 /uL (0-450); Eosinophils Percent Auto 0.5 % (2-4); Hematocrit 37.9 % (41-53); Hemoglobin 12.8 g/dL (13.5-17.5); Lymphocytes Absolute Auto 600 /uL (1100-4500); Lymphocytes Percent Auto 4.4 % (25-40); Mean Corpuscular HGB Conc 33.7 % (30-36); Mean Corpuscular Hemoglobin 30.9 PG (26-34); Mean Corpuscular Volume 91.6 fL (80-100); Monocytes Absolute Auto 1200 /uL (0-900); Monocytes Percent Auto 9.1 % (3-14); Neutrophils Absolute Auto 11100 /uL (1500-7000); Neutrophils Percent Auto 85.7 % (50-75); Platelet Count 186 X10^3/uL (150-400); Red Blood Cell Count 4.14 X10^6/uL (4.5-5.9); Red Cell Distribution Width 13.2 % (11.6-14.8); White Blood Cell Count 12.9 X10^3/uL (4.5-11.0)
--- NOTE | 2020-04-28 12:44 | PC.NURSE ---
history of bladder CA (currently in remission), frequent UTIs, A-fib, CKD, and HTN, presents to the emergency department for increased dysuria, urinary frequency, and bladder irritation for the past 24 hours. Patient states he had a bladder scope approximately 5 days ago to check for reoccurring cancer. Patient had an episode of diarrhea a few days after (which has resolved) and then he developed dysuria. Denies rectal pressure. Patient states he usually gets a urinary tract infection after the scopes. Patient reported occasional chills but denies fever, abdominal pain, nausea, vomiting, diarrhea, chest pain, shortness of breath, or COVID exposure. Patient reports he is taking Xarelto.
[2020-04-28 12:52] LABS: Alanine Aminotransferase 27 IU/L (<50); Albumin 4.1 g/dL (3.5-5.0); Albumin Globulin Ratio 1.2 (1.0-2.8); Alkaline Phosphatase 77 U/L (38-126); Aspartate Aminotransferase 25 IU/L (17-59); BUN Creatinine Ratio 20.2 (6-22); Bilirubin Total 0.6 mg/dL (0.2-1.3); Blood Urea Nitrogen 22 mg/dL (9-20); Carbon Dioxide 25 mmol/L (22-32); Chloride 103 mmol/L (98-107); Estimated Glomerular Filt Rate > 60.0 mL/min (>60); Globulin 3.4 g/dL (1.7-4.1); Glucose 135 mg/dL (80-110); HEMOLYSIS < 15 (0-50); Potassium 3.9 mmol/L (3.4-5.1); Sodium 137 mmol/L (137-145); Total Protein 7.5 g/dL (6.3-8.2)
[2020-04-28] MEDS: PHENAZOPYRIDINE 100 MG TABLET PO (13:05)
== END 2020-04-28 13:08 | disposition home or self-care (01) ==
PROVIDERS: Emergency Provider Nurse Practitioner; PCP Internal Medicine
DX: N41.0 Acute prostatitis (principal); I48.91 Unspecified atrial fibrillation; I12.9 Hypertensive chronic kidney disease with stage 1 through stage 4 chronic kidney disease, or unspecified chronic kidney disease; N18.9 Chronic kidney disease, unspecified
CPT/HCPCS: 36415; 80053; 81003; 81015; 85025; 87077; 87086; 87186; 99283

== ENCOUNTER → 2020-05-16 10:23 | Outpatient (CLI) | payer MEDICARE, SELFPAY ==
[2020-05-16 12:24] LABS: Alanine Aminotransferase 20 IU/L (<50); Albumin 4.1 g/dL (3.5-5.0); Albumin Globulin Ratio 1.2 (1.0-2.8); Alkaline Phosphatase 71 U/L (38-126); Aspartate Aminotransferase 24 IU/L (17-59); BUN Creatinine Ratio 15.4 (6-22); Bilirubin Total 0.6 mg/dL (0.2-1.3); Blood Urea Nitrogen 19 mg/dL (9-20); Calcium 9.1 mg/dL (8.4-10.2); Carbon Dioxide 29 mmol/L (22-32); Chloride 102 mmol/L (98-107); Estimated Glomerular Filt Rate 57.1 mL/min (>60); Globulin 3.4 g/dL (1.7-4.1); Glucose 137 mg/dL (80-110); HEMOLYSIS < 15 (0-50); Potassium 4.2 mmol/L (3.4-5.1); Sodium 139 mmol/L (137-145); Total Protein 7.5 g/dL (6.3-8.2)
== END ==
PROVIDERS: PCP Internal Medicine; Referring Provider Internal Medicine Cardiovascular Disease; Visit Provider Internal Medicine Cardiovascular Disease
DX: I48.0 Paroxysmal atrial fibrillation (principal)
CPT/HCPCS: 36415; 80053; 84443

== ENCOUNTER → 2020-06-06 10:08 | Outpatient (CLI) | payer MEDICARE, SELFPAY ==
--- NOTE | 2020-06-06 | DI.RAD.S_ITS ---
PROCEDURE: FL BARIUM SWALLOW INDICATIONS: Gastro-esophageal reflux disease without esophagit COMPARISON: None. FINDINGS: Function: There is delayed esophageal peristalsis. No definite gastroesophageal reflux was visualized at the time of the study. There is normal transit of a calibrated barium tablet through the esophagus into the stomach. Morphology: Air-contrast images demonstrate feline appearance of the mid and distal esophagus. Single contrast views show no esophageal strictures, extrinsic mass effects, or diverticula. Limited images of the stomach demonstrate normal appearance. IMPRESSION: Feline appearance of the distal esophagus, which has been described in the setting of gastroesophageal reflux. Esophageal dysmotility Dictated by: Kermit Mckee M.D. on 06/06/2020 at 11:22 Approved by: Kermit Mckee M.D. on 06/06/2020 at 13:40
== END ==
PROVIDERS: PCP Internal Medicine; Referring Provider Internal Medicine; Visit Provider Internal Medicine
DX: K21.9 Gastro-esophageal reflux disease without esophagitis (principal); K22.4 Dyskinesia of esophagus
CPT/HCPCS: 74220

== ENCOUNTER 2020-06-21 04:46 | Observation (INO) | payer MEDICARE, SELFPAY ==
[2020-06-21] VITALS (12 sets, daily range): BP systolic 122–157; BP diastolic 60–78; PULSE 60–88; RESP 18–25; TEMP 36.3–39.3; O2SAT 91–97; BMI 38.0
--- NOTE | 2020-06-21 04:49 | DI.RAD.S_ITS ---
PROCEDURE: XR CHEST 1V INDICATIONS: fever, chills, hypoxia TECHNIQUE: One view of the chest was acquired. COMPARISON: [facility], CR, XR CHEST 1V, 01/12/2020, 19:33. FINDINGS: Surgical changes and devices: None. Lungs and pleura: Lungs are clear. No pleural effusions or pneumothorax. Mediastinum: Mediastinal contours appear normal. Heart is enlarged. Bones and chest wall: No suspicious bony lesions. Overlying soft tissues appear unremarkable. IMPRESSION: No acute cardiopulmonary disease process. Dictated by: Yulia Salgado MD, PhD on 06/21/2020 at 10:21 Approved by: Yulia Salgado MD, PhD on 06/21/2020 at 10:21
--- NOTE | 2020-06-21 04:54 | ED.SEPSIS ---
HPI - Sepsis <Jon Elliott DO - Last Filed: 06/21/20 23:23> General Chief Complaint: Nausea/Vomiting/Diarrhea Mode of arrival: EMS Source: EMS Limitations: no limitations Evaluation Sepsis Infection Criteria Present: Suspected New Infection Associated Symptoms: fever, chills, nausea, vomiting and diarrhea Narrative: 75-year-old male nonsmoker with history of diverticulitis, bowel obstruction, obesity presents by EMS for evaluation of fever, shaking chills and multiple episodes of nausea, vomiting and diarrhea this evening. He denies any runny nose, sore throat. He has no chest pain, shortness of breath or cough. He denies any exposure to persons known to be positive for coronavirus. He states that he presented similarly to this with a prior episode of diverticulitis. On arrival paramedics found his pulse ox to be 88% and he was placed on the nasal cannula 4 L which improved his sats to the mid 90s. Review of Systems <Jon Elliott DO - Last Filed: 06/21/20 23:23> Constitutional Constitutional: Reports chills, Denies fatigue, Reports fever(s), Denies frequent falls, Reports lethargy and Reports weakness Eyes Eyes: Denies change in vision, Denies eye discharge, Denies irritation and Denies loss of vision ENT Ears, Nose, Mouth, and Throat: Denies change in voice, Denies dizziness, Denies neck pain, Denies sore throat and Denies throat swelling Cardiovascular Cardiovascular: Denies chest pain, Denies irregular heart rhythm, Denies lightheadedness, Denies palpitations, Denies dyspnea, Denies dyspnea on exertion and Denies orthopnea Respiratory Respiratory: Denies cough, Denies dyspnea, Denies dyspnea on exertion and Denies wheezing Gastrointestinal Gastrointestinal: Denies abdominal pain, Denies change in bowel habits, Reports diarrhea, Reports nausea and Reports vomiting Musculoskeletal Musculoskeletal: Denies neck pain and Denies numbness Integumentary/Breasts Skin/Breast: Denies pruritus, Denies erythema, Denies rash and Denies wounds Neurologic Neurologic: Denies behavioral changes, Denies confusion, Denies dizziness, Denies frequent falls, Denies loss of vision, Denies numbness and Reports weakness Psychiatric Psychiatric: Denies anxiety, Denies behavioral changes, Denies confusion, Denies depression, Denies homicidal ideation and Denies suicidal ideation Endocrine Endocrine: Denies fatigue, Denies flushing and Denies palpitations Hematologic/Lymphatic Hematologic/Lymphatic: Denies easy bruising Allergic/Immunologic Allergic/Immunologic: Denies urticaria, Denies throat swelling and Denies wheezing Patient History <Jon Elliott DO - Last Filed: 06/21/20 23:23> Medical History (Updated 06/21/20 @ 07:16 by Jon Elliott DO) Asthma (Inactive 11/04/11) Atrial flutter (03/20/17) Benign prostatic hyperplasia (11/04/11) Body mass index (BMI) of 30.0 to 39.9 (10/27/11) Controlled type 2 diabetes mellitus (10/03/16) Diverticulosis of sigmoid colon (03/20/17) Essential hypertension (Inactive 10/27/11) Gastroesophageal reflux disease (03/01/14) Hyperlipidemia (Inactive 10/27/11) Malignant neoplasm of urinary bladder (10/11/16) Tubular adenoma of colon (03/20/17) Surgical History History of cardiac radiofrequency ablation (Acute) History of cystoscopy Family History Father CAD (coronary artery disease) Hyperlipidemia Hypertension Mother CAD (coronary artery disease) Hypertension Hyperlipidemia Social History household members: spouse and family Smoking Status: Never smoker alcohol intake: never Smoking Status: Never smoker alcohol intake frequency: 0-2 drinks per day Substance Use Type: does not use Exam <Jon Elliott DO - Last Filed: 06/21/20 23:23> Narrative Exam Narrative: GENERAL: [75] year old patient appears stated age. Well-nourished, well-developed patient, in mild distress. HEAD: Atraumatic. Normocephalic. EYES: Pupils equal round and reactive. Extraocular motions intact. No scleral icterus. No injection or drainage. ENT: Nose without bleeding, purulent drainage. Throat without erythema, tonsillar hypertrophy or exudate. Airway patent. NECK: Trachea midline. Non tender CARDIOVASCULAR: Regular rate and rhythm without murmurs, gallops, or rubs. RESPIRATORY: Clear to auscultation. Breath sounds equal bilaterally. No wheezes, rales, or rhonchi. GASTROINTESTINAL: Abdomen soft, non-tender, nondistended. EXTREMITIES: No edema or joint tenderness. BACK: Nontender without deformity or crepitance. No flank tenderness. NEURO: AOx3. SKIN: No rash or erythema of visible areas Initial Vital Signs Initial Vital Signs: Vital Signs Temperature 102.8 F H 06/21/20 04:53 Pulse Rate 88 06/21/20 04:53 Respiratory Rate 21 06/21/20 04:53 Blood Pressure 142/78 H 06/21/20 04:53 Pulse Oximetry 91 06/21/20 04:53 <Bryan Harrell MD - Last Filed: 06/21/20 17:56> Initial Vital Signs Initial Vital Signs: Vital Signs Temperature 102.8 F H 06/21/20 04:53 Pulse Rate 88 06/21/20 04:53 Respiratory Rate 21 06/21/20 04:53 Blood Pressure 142/78 H 06/21/20 04:53 Pulse Oximetry 91 06/21/20 04:53 Course <Jon Elliott DO - Last Filed: 06/21/20 23:23> Course Course Narrative: patient recognized as sepsis on arrival and sepsis order set entered. Fluids ordered at 30mL/kg IBW. Patient recognized as severe sepsis due to critical Lactate 3.9 reported at 0534 Orders Ordered: Acetaminophen (Tylenol) 650 mg PO Q6HR PRN PRN Reason: Fever/Mild Pain (1-3) Amiodarone HCl (Pacerone) 100 mg PO QPM [facility] Amoxicillin/Clavulanate Potassium (Augmentin 875-125 Mg) 1 tab PO BID [facility] Last Admin: 06/21/20 21:24 Dose: 1 tab Documented by: RADHA Enalapril Maleate (Vasotec) 5 mg PO DAILY [facility] Levofloxacin (Levaquin) 750 mg in 150 mls @ 100 mls/hr IV NOW [facility] Last Infusion: 06/21/20 06:49 Dose: 0 mls/hr Documented by: Admin: 06/21/20 05:16 Dose: 100 mls/hr Documented by: HEMALATHA Levothyroxine Sodium (Synthroid) 75 mcg PO 0600 [facility] Liothyronine Sodium (Cytomel) 10 mcg PO DAILY [facility] Lovastatin (Mevacor) 40 mg PO DAILY [facility] Magnesium Oxide (Mag Ox) 400 mg PO DAILY [facility] Metoprolol Succinate (Toprol Xl) 25 mg PO DAILY [facility] Metoprolol Succinate (Toprol Xl) 12.5 mg PO BEDTIME [facility] Last Admin: 06/21/20 21:24 Dose: 12.5 mg Documented by: RADHA Naloxone HCl (Narcan) 0.2 mg IV Q2MIN PRN PRN Reason: Opiate Reversal Ondansetron HCl (Zofran) 4 mg IV Q8HR PRN PRN Reason: Nausea And Vomiting Oxycodone HCl (Percolone) 5 mg PO Q6HR PRN PRN Reason: Pain, Moderate (4-6) Pantoprazole Sodium (Protonix) 20 mg PO 0600 [facility] Potassium Chloride (Klor-Con M20) 20 meq PO DAILY [facility] Rivaroxaban (Xarelto) 20 mg PO QPM [facility] Sennosides (Senna) 17.2 mg PO BEDTIME [facility] Last Admin: 06/21/20 21:24 Dose: 17.2 mg Documented by: RADHA Tamsulosin HCl (Flomax) 0.8 mg PO 1730 [facility] Last Admin: 06/21/20 18:55 Dose: 0.8 mg Documented by: RADHA Triamterene/HCTZ (Maxide 37.5/25) 1 tab PO DAILY [facility] Discontinued Medications Sodium Chloride (Normal Saline 0.9%) 2,032.68 mls @ 677.56 mls/hr 30 ml/kg infuse over 3 hr (2032.68 ml) IV NOW ONE Stop: 06/21/20 07:48 Last Infusion: 06/21/20 08:10 Dose: 0 mls/hr Documented by: Admin: 06/21/20 05:13 Dose: 677.56 mls/hr Documented by: HEMALATHA Metronidazole (Flagyl) 500 mg in 100 mls @ 100 mls/hr IV NOW ONE Stop: 06/21/20 08:19 Last Infusion: 06/21/20 09:31 Dose: 0 mls/hr Documented by: Admin: 06/21/20 08:10 Dose: 100 mls/hr Documented by: KRISTIN Vital Signs Vital signs: Vital Signs - 8 hr 06/21/20 04:53 06/21/20 05:53 06/21/20 06:45 Temperature 102.8 F H 99.8 F H Pulse Rate 88 76 Respiratory Rate 21 25 H Blood Pressure 142/78 H 143/63 H Pulse Oximetry 91 96 <Bryan Harrell MD - Last Filed: 06/21/20 17:56> Course Course Narrative: Time 7:30 a.m.. Sign-out from Dr. Elliott, hospitalist has accepted admission. Ultrasound abdomen results are pending. Orders Ordered: Acetaminophen (Tylenol) 650 mg PO Q6HR PRN PRN Reason: Fever/Mild Pain (1-3) Amiodarone HCl (Pacerone) 100 mg PO QPM [facility] Amoxicillin/Clavulanate Potassium (Augmentin 875-125 Mg) 1 tab PO BID [facility] Last Admin: 06/21/20 21:24 Dose: 1 tab Documented by: RADHA Enalapril Maleate (Vasotec) 5 mg PO DAILY [facility] Levofloxacin (Levaquin) 750 mg in 150 mls @ 100 mls/hr IV NOW [facility] Last Infusion: 06/21/20 06:49 Dose: 0 mls/hr Documented by: Admin: 06/21/20 05:16 Dose: 100 mls/hr Documented by: HEMALATHA Levothyroxine Sodium (Synthroid) 75 mcg PO 0600 [facility] Liothyronine Sodium (Cytomel) 10 mcg PO DAILY [facility] Lovastatin (Mevacor) 40 mg PO DAILY [facility] Magnesium Oxide (Mag Ox) 400 mg PO DAILY [facility] Metoprolol Succinate (Toprol Xl) 25 mg PO DAILY [facility] Metoprolol Succinate (Toprol Xl) 12.5 mg PO BEDTIME [facility] Last Admin: 06/21/20 21:24 Dose: 12.5 mg Documented by: RADHA Naloxone HCl (Narcan) 0.2 mg IV Q2MIN PRN PRN Reason: Opiate Reversal Ondansetron HCl (Zofran) 4 mg IV Q8HR PRN PRN Reason: Nausea And Vomiting Oxycodone HCl (Percolone) 5 mg PO Q6HR PRN PRN Reason: Pain, Moderate (4-6) Pantoprazole Sodium (Protonix) 20 mg PO 0600 [facility] Potassium Chloride (Klor-Con M20) 20 meq PO DAILY [facility] Rivaroxaban (Xarelto) 20 mg PO QPM [facility] Sennosides (Senna) 17.2 mg PO BEDTIME [facility] Last Admin: 06/21/20 21:24 Dose: 17.2 mg Documented by: RADHA Tamsulosin HCl (Flomax) 0.8 mg PO 1730 [facility] Last Admin: 06/21/20 18:55 Dose: 0.8 mg Documented by: RADHA Triamterene/HCTZ (Maxide 37.5/25) 1 tab PO DAILY [facility] Discontinued Medications Sodium Chloride (Normal Saline 0.9%) 2,032.68 mls @ 677.56 mls/hr 30 ml/kg infuse over 3 hr (2032.68 ml) IV NOW ONE Stop: 06/21/20 07:48 Last Infusion: 06/21/20 08:10 Dose: 0 mls/hr Documented by: Admin: 06/21/20 05:13 Dose: 677.56 mls/hr Documented by: HEMALATHA Metronidazole (Flagyl) 500 mg in 100 mls @ 100 mls/hr IV NOW ONE Stop: 06/21/20 08:19 Last Infusion: 06/21/20 09:31 Dose: 0 mls/hr Documented by: Admin: 06/21/20 08:10 Dose: 100 mls/hr Documented by: KRISTIN Vital Signs Vital signs: Vital Signs - 8 hr 06/21/20 04:53 06/21/20 05:53 06/21/20 06:45 Temperature 102.8 F H 99.8 F H Pulse Rate 88 76 Respiratory Rate 21 25 H Blood Pressure 142/78 H 143/63 H Pulse Oximetry 91 96 MDM - Sepsis <Jon Elliott DO - Last Filed: 06/21/20 23:23> Lab Data Result diagrams: 06/21/20 14:09 06/21/20 14:09 Labs: Lab Results 06/21/20 06/21/20 06/21/20 Range/Units 04:40 04:40 04:40 WBC 8.6 (4.5-11.0) X10^3/uL RBC 4.26 L (4.5-5.9) X10^6/uL Hgb 13.1 L (13.5-17.5) g/dL Hct 39.0 L (41-53) % MCV 91.6 (80-100) fL MCH 30.8 (26-34) PG MCHC 33.6 (30-36) % RDW 14.5 (11.6-14.8) % Plt Count 156 (150-400) X10^3/uL Neut % (Auto) 92.7 H (50-75) % Lymph % (Auto) 4.0 L (25-40) % [place] % (Auto) 2.0 L (3-14) % Eos % (Auto) 0.9 L (2-4) % Baso % (Auto) 0.4 (0-2) % Neut # (Auto) 8000 H (8341-4669) /uL Lymph # (Auto) 300 L (8059-9875) /uL [place] # (Auto) 200 (0-900) /uL Eos # (Auto) 100 (0-450) /uL Baso # (Auto) 0 (0-100) /uL PT (10.1-12.7) SECONDS INR (0.9-1.3) APTT (26.4-36.2) SECONDS D-Dimer 593 H (<230) ng/mL Sodium 139 (137-145) mmol/L Potassium 4.2 (3.4-5.1) mmol/L Chloride 103 (98-107) mmol/L Carbon Dioxide 25 (22-32) mmol/L BUN 25 H (9-20) mg/dL Creatinine 1.36 H (0.66-1.25) mg/dL Estimated GFR 50.8 L (>60) mL/min BUN/Creatinine Ratio 18.4 (6-22) Glucose 187 H (80-110) mg/dL Lactate (0.7-2.1) mmol/L Calcium 8.5 (8.4-10.2) mg/dL Ferritin 30 (18-464) ng/mL Total Bilirubin 0.6 (0.2-1.3) mg/dL AST 26 (17-59) IU/L ALT 23 (<50) IU/L Alkaline Phosphatase 68 (38-126) U/L Lactate Dehydrogenase 419 (313-618) U/L Total Creatine Kinase 96 (55-170) U/L CK-MB (CK-2) TNP CK-MB (CK-2) Rel Index TNP Troponin I < 0.012 (0.01-0.034) ng/mL Total Protein 7.2 (6.3-8.2) g/dL Albumin 4.0 (3.5-5.0) g/dL Globulin 3.2 (1.7-4.1) g/dL Albumin/Globulin Ratio 1.3 (1.0-2.8) Procalcitonin (<0.5) ng/mL Chlamy pneumoniae PCR (Not Detect) Adenovirus (PCR) (Not Detect) B.parapertussis DNA PCR (Not Detect) Coronavirus OC43 (PCR) (Not Detect) Coronavirus HKU1 (PCR) (Not Detect) Coronavirus 229E (PCR) (Not Detect) COVID-19 PCR (Negative) Coronavirus NL63 (PCR) (Not Detect) Human Metapneumovir PCR (Not Detect) Influenza Type A (PCR) (Not Detect) Influenza Type B (PCR) (Not Detect) M. pneumoniae (PCR) (Not Detect) Parainfluenza 1 (PCR) (Not Detect) Parainfluenza 2 (PCR) (Not Detect) Parainfluenza 3 (PCR) (Not Detect) Parainfluenza 4 (PCR) (Not Detect) RSV (PCR) (Not Detect) Entero/Rhino (PCR) (Not Detect) 06/21/20 06/21/20 06/21/20 Range/Units 04:40 04:40 04:51 WBC (4.5-11.0) X10^3/uL RBC (4.5-5.9) X10^6/uL Hgb (13.5-17.5) g/dL Hct (41-53) % MCV (80-100) fL MCH (26-34) PG MCHC (30-36) % RDW (11.6-14.8) % Plt Count (150-400) X10^3/uL Neut % (Auto) (50-75) % Lymph % (Auto) (25-40) % [place] % (Auto) (3-14) % Eos % (Auto) (2-4) % Baso % (Auto) (0-2) % Neut # (Auto) (1619-0870) /uL Lymph # (Auto) (8648-3508) /uL [place] # (Auto) (0-900) /uL Eos # (Auto) (0-450) /uL Baso # (Auto) (0-100) /uL PT 19.0 H (10.1-12.7) SECONDS INR 1.7 H (0.9-1.3) APTT 30 D (26.4-36.2) SECONDS D-Dimer (<230) ng/mL Sodium (137-145) mmol/L Potassium (3.4-5.1) mmol/L Chloride (98-107) mmol/L Carbon Dioxide (22-32) mmol/L BUN (9-20) mg/dL Creatinine (0.66-1.25) mg/dL Estimated GFR (>60) mL/min BUN/Creatinine Ratio (6-22) Glucose (80-110) mg/dL Lactate (0.7-2.1) mmol/L Calcium (8.4-10.2) mg/dL Ferritin (18-464) ng/mL Total Bilirubin (0.2-1.3) mg/dL AST (17-59) IU/L ALT (<50) IU/L Alkaline Phosphatase (38-126) U/L Lactate Dehydrogenase (313-618) U/L Total Creatine Kinase (55-170) U/L CK-MB (CK-2) CK-MB (CK-2) Rel Index Troponin I (0.01-0.034) ng/mL Total Protein (6.3-8.2) g/dL Albumin (3.5-5.0) g/dL Globulin (1.7-4.1) g/dL Albumin/Globulin Ratio (1.0-2.8) Procalcitonin 0.05 (<0.5) ng/mL Chlamy pneumoniae PCR (Not Detect) Adenovirus (PCR) (Not Detect) B.parapertussis DNA PCR (Not Detect) Coronavirus OC43 (PCR) (Not Detect) Coronavirus HKU1 (PCR) (Not Detect) Coronavirus 229E (PCR) (Not Detect) COVID-19 PCR Negative (Negative) Coronavirus NL63 (PCR) (Not Detect) Human Metapneumovir PCR (Not Detect) Influenza Type A (PCR) (Not Detect) Influenza Type B (PCR) (Not Detect) M. pneumoniae (PCR) (Not Detect) Parainfluenza 1 (PCR) (Not Detect) Parainfluenza 2 (PCR) (Not Detect) Parainfluenza 3 (PCR) (Not Detect) Parainfluenza 4 (PCR) (Not Detect) RSV (PCR) (Not Detect) Entero/Rhino (PCR) (Not Detect) 06/21/20 06/21/20 Range/Units 04:51 05:00 WBC (4.5-11.0) X10^3/uL RBC (4.5-5.9) X10^6/uL Hgb (13.5-17.5) g/dL Hct (41-53) % MCV (80-100) fL MCH (26-34) PG MCHC (30-36) % RDW (11.6-14.8) % Plt Count (150-400) X10^3/uL Neut % (Auto) (50-75) % Lymph % (Auto) (25-40) % [place] % (Auto) (3-14) % Eos % (Auto) (2-4) % Baso % (Auto) (0-2) % Neut # (Auto) (2756-3995) /uL Lymph # (Auto) (3565-4168) /uL [place] # (Auto) (0-900) /uL Eos # (Auto) (0-450) /uL Baso # (Auto) (0-100) /uL PT (10.1-12.7) SECONDS INR (0.9-1.3) APTT (26.4-36.2) SECONDS D-Dimer (<230) ng/mL Sodium (137-145) mmol/L Potassium (3.4-5.1) mmol/L Chloride (98-107) mmol/L Carbon Dioxide (22-32) mmol/L BUN (9-20) mg/dL Creatinine (0.66-1.25) mg/dL Estimated GFR (>60) mL/min BUN/Creatinine Ratio (6-22) Glucose (80-110) mg/dL Lactate 3.9 H (0.7-2.1) mmol/L Calcium (8.4-10.2) mg/dL Ferritin (18-464) ng/mL Total Bilirubin (0.2-1.3) mg/dL AST (17-59) IU/L ALT (<50) IU/L Alkaline Phosphatase (38-126) U/L Lactate Dehydrogenase (313-618) U/L Total Creatine Kinase (55-170) U/L CK-MB (CK-2) CK-MB (CK-2) Rel Index Troponin I (0.01-0.034) ng/mL Total Protein (6.3-8.2) g/dL Albumin (3.5-5.0) g/dL Globulin (1.7-4.1) g/dL Albumin/Globulin Ratio (1.0-2.8) Procalcitonin (<0.5) ng/mL Chlamy pneumoniae PCR Not detected (Not Detect) Adenovirus (PCR) Not detected (Not Detect) B.parapertussis DNA PCR Not detected (Not Detect) Coronavirus OC43 (PCR) Not detected (Not Detect) Coronavirus HKU1 (PCR) Not detected (Not Detect) Coronavirus 229E (PCR) Not detected (Not Detect) COVID-19 PCR (Negative) Coronavirus NL63 (PCR) Not detected (Not Detect) Human Metapneumovir PCR Not detected (Not Detect) Influenza Type A (PCR) Not detected (Not Detect) Influenza Type B (PCR) Not detected (Not Detect) M. pneumoniae (PCR) Not detected (Not Detect) Parainfluenza 1 (PCR) Not detected (Not Detect) Parainfluenza 2 (PCR) Not detected (Not Detect) Parainfluenza 3 (PCR) Not detected (Not Detect) Parainfluenza 4 (PCR) Not detected (Not Detect) RSV (PCR) Not detected (Not Detect) Entero/Rhino (PCR) Not detected (Not Detect) Urine Dip Bedside Urine Glucose Negative Bedside Urine Bilirubin - Negative Bedside Urine Ketone - Negative Urine Specific [place] 1.015 Bedside Urine Occult Blood +/- Bedside Urine pH 5.5 Bedside Urine Protein +/- 15 Bedside Urine Urobilinogen - Negative Bedside Urine Nitrite - Negative Bedside Urine Leukocytes - Negative Esterase <Bryan Harrell MD - Last Filed: 06/21/20 17:56> Lab Data Labs: Lab Results 06/21/20 06/21/20 06/21/20 Range/Units 04:40 04:40 04:40 WBC 8.6 (4.5-11.0) X10^3/uL RBC 4.26 L (4.5-5.9) X10^6/uL Hgb 13.1 L (13.5-17.5) g/dL Hct 39.0 L (41-53) % MCV 91.6 (80-100) fL MCH 30.8 (26-34) PG MCHC 33.6 (30-36) % RDW 14.5 (11.6-14.8) % Plt Count 156 (150-400) X10^3/uL Neut % (Auto) 92.7 H (50-75) % Lymph % (Auto) 4.0 L (25-40) % [place] % (Auto) 2.0 L (3-14) % Eos % (Auto) 0.9 L (2-4) % Baso % (Auto) 0.4 (0-2) % Neut # (Auto) 8000 H (4663-9554) /uL Lymph # (Auto) 300 L (2923-4232) /uL [place] # (Auto) 200 (0-900) /uL Eos # (Auto) 100 (0-450) /uL Baso # (Auto) 0 (0-100) /uL PT (10.1-12.7) SECONDS INR (0.9-1.3) APTT (26.4-36.2) SECONDS D-Dimer 593 H (<230) ng/mL Sodium 139 (137-145) mmol/L Potassium 4.2 (3.4-5.1) mmol/L Chloride 103 (98-107) mmol/L Carbon Dioxide 25 (22-32) mmol/L BUN 25 H (9-20) mg/dL Creatinine 1.36 H (0.66-1.25) mg/dL Estimated GFR 50.8 L (>60) mL/min BUN/Creatinine Ratio 18.4 (6-22) Glucose 187 H (80-110) mg/dL Lactate (0.7-2.1) mmol/L Calcium 8.5 (8.4-10.2) mg/dL Ferritin 30 (18-464) ng/mL Total Bilirubin 0.6 (0.2-1.3) mg/dL AST 26 (17-59) IU/L ALT 23 (<50) IU/L Alkaline Phosphatase 68 (38-126) U/L Lactate Dehydrogenase 419 (313-618) U/L Total Creatine Kinase 96 (55-170) U/L CK-MB (CK-2) TNP CK-MB (CK-2) Rel Index TNP Troponin I < 0.012 (0.01-0.034) ng/mL Total Protein 7.2 (6.3-8.2) g/dL Albumin 4.0 (3.5-5.0) g/dL Globulin 3.2 (1.7-4.1) g/dL Albumin/Globulin Ratio 1.3 (1.0-2.8) Procalcitonin (<0.5) ng/mL Chlamy pneumoniae PCR (Not Detect) Adenovirus (PCR) (Not Detect) B.parapertussis DNA PCR (Not Detect) Coronavirus OC43 (PCR) (Not Detect) Coronavirus HKU1 (PCR) (Not Detect) Coronavirus 229E (PCR) (Not Detect) COVID-19 PCR (Negative) Coronavirus NL63 (PCR) (Not Detect) Human Metapneumovir PCR (Not Detect) Influenza Type A (PCR) (Not Detect) Influenza Type B (PCR) (Not Detect) M. pneumoniae (PCR) (Not Detect) Parainfluenza 1 (PCR) (Not Detect) Parainfluenza 2 (PCR) (Not Detect) Parainfluenza 3 (PCR) (Not Detect) Parainfluenza 4 (PCR) (Not Detect) RSV (PCR) (Not Detect) Entero/Rhino (PCR) (Not Detect) 06/21/20 06/21/20 06/21/20 Range/Units 04:40 04:40 04:51 WBC (4.5-11.0) X10^3/uL RBC (4.5-5.9) X10^6/uL Hgb (13.5-17.5) g/dL Hct (41-53) % MCV (80-100) fL MCH (26-34) PG MCHC (30-36) % RDW (11.6-14.8) % Plt Count (150-400) X10^3/uL Neut % (Auto) (50-75) % Lymph % (Auto) (25-40) % [place] % (Auto) (3-14) % Eos % (Auto) (2-4) % Baso % (Auto) (0-2) % Neut # (Auto) (8544-6614) /uL Lymph # (Auto) (2956-3154) /uL [place] # (Auto) (0-900) /uL Eos # (Auto) (0-450) /uL Baso # (Auto) (0-100) /uL PT 19.0 H (10.1-12.7) SECONDS INR 1.7 H (0.9-1.3) APTT 30 D (26.4-36.2) SECONDS D-Dimer (<230) ng/mL Sodium (137-145) mmol/L Potassium (3.4-5.1) mmol/L Chloride (98-107) mmol/L Carbon Dioxide (22-32) mmol/L BUN (9-20) mg/dL Creatinine (0.66-1.25) mg/dL Estimated GFR (>60) mL/min BUN/Creatinine Ratio (6-22) Glucose (80-110) mg/dL Lactate (0.7-2.1) mmol/L Calcium (8.4-10.2) mg/dL Ferritin (18-464) ng/mL Total Bilirubin (0.2-1.3) mg/dL AST (17-59) IU/L ALT (<50) IU/L Alkaline Phosphatase (38-126) U/L Lactate Dehydrogenase (313-618) U/L Total Creatine Kinase (55-170) U/L CK-MB (CK-2) CK-MB (CK-2) Rel Index Troponin I (0.01-0.034) ng/mL Total Protein (6.3-8.2) g/dL Albumin (3.5-5.0) g/dL Globulin (1.7-4.1) g/dL Albumin/Globulin Ratio (1.0-2.8) Procalcitonin 0.05 (<0.5) ng/mL Chlamy pneumoniae PCR (Not Detect) Adenovirus (PCR) (Not Detect) B.parapertussis DNA PCR (Not Detect) Coronavirus OC43 (PCR) (Not Detect) Coronavirus HKU1 (PCR) (Not Detect) Coronavirus 229E (PCR) (Not Detect) COVID-19 PCR Negative (Negative) Coronavirus NL63 (PCR) (Not Detect) Human Metapneumovir PCR (Not Detect) Influenza Type A (PCR) (Not Detect) Influenza Type B (PCR) (Not Detect) M. pneumoniae (PCR) (Not Detect) Parainfluenza 1 (PCR) (Not Detect) Parainfluenza 2 (PCR) (Not Detect) Parainfluenza 3 (PCR) (Not Detect) Parainfluenza 4 (PCR) (Not Detect) RSV (PCR) (Not Detect) Entero/Rhino (PCR) (Not Detect) 06/21/20 06/21/20 Range/Units 04:51 05:00 WBC (4.5-11.0) X10^3/uL RBC (4.5-5.9) X10^6/uL Hgb (13.5-17.5) g/dL Hct (41-53) % MCV (80-100) fL MCH (26-34) PG MCHC (30-36) % RDW (11.6-14.8) % Plt Count (150-400) X10^3/uL Neut % (Auto) (50-75) % Lymph % (Auto) (25-40) % [place] % (Auto) (3-14) % Eos % (Auto) (2-4) % Baso % (Auto) (0-2) % Neut # (Auto) (4999-6702) /uL Lymph # (Auto) (7630-1888) /uL [place] # (Auto) (0-900) /uL Eos # (Auto) (0-450) /uL Baso # (Auto) (0-100) /uL PT (10.1-12.7) SECONDS INR (0.9-1.3) APTT (26.4-36.2) SECONDS D-Dimer (<230) ng/mL Sodium (137-145) mmol/L Potassium (3.4-5.1) mmol/L Chloride (98-107) mmol/L Carbon Dioxide (22-32) mmol/L BUN (9-20) mg/dL Creatinine (0.66-1.25) mg/dL Estimated GFR (>60) mL/min BUN/Creatinine Ratio (6-22) Glucose (80-110) mg/dL Lactate 3.9 H (0.7-2.1) mmol/L Calcium (8.4-10.2) mg/dL Ferritin (18-464) ng/mL Total Bilirubin (0.2-1.3) mg/dL AST (17-59) IU/L ALT (<50) IU/L Alkaline Phosphatase (38-126) U/L Lactate Dehydrogenase (313-618) U/L Total Creatine Kinase (55-170) U/L CK-MB (CK-2) CK-MB (CK-2) Rel Index Troponin I (0.01-0.034) ng/mL Total Protein (6.3-8.2) g/dL Albumin (3.5-5.0) g/dL Globulin (1.7-4.1) g/dL Albumin/Globulin Ratio (1.0-2.8) Procalcitonin (<0.5) ng/mL Chlamy pneumoniae PCR Not detected (Not Detect) Adenovirus (PCR) Not detected (Not Detect) B.parapertussis DNA PCR Not detected (Not Detect) Coronavirus OC43 (PCR) Not detected (Not Detect) Coronavirus HKU1 (PCR) Not detected (Not Detect) Coronavirus 229E (PCR) Not detected (Not Detect) COVID-19 PCR (Negative) Coronavirus NL63 (PCR) Not detected (Not Detect) Human Metapneumovir PCR Not detected (Not Detect) Influenza Type A (PCR) Not detected (Not Detect) Influenza Type B (PCR) Not detected (Not Detect) M. pneumoniae (PCR) Not detected (Not Detect) Parainfluenza 1 (PCR) Not detected (Not Detect) Parainfluenza 2 (PCR) Not detected (Not Detect) Parainfluenza 3 (PCR) Not detected (Not Detect) Parainfluenza 4 (PCR) Not detected (Not Detect) RSV (PCR) Not detected (Not Detect) Entero/Rhino (PCR) Not detected (Not Detect) Urine Dip Bedside Urine Glucose Negative Bedside Urine Bilirubin - Negative Bedside Urine Ketone - Negative Urine Specific [place] 1.015 Bedside Urine Occult Blood +/- Bedside Urine pH 5.5 Bedside Urine Protein +/- 15 Bedside Urine Urobilinogen - Negative Bedside Urine Nitrite - Negative Bedside Urine Leukocytes - Negative Esterase Imaging Data US - abdomen: Radiologist's Impression: [address] [address] Ultrasound Report Signed Patient: Leandro Allen [facility]#: [id number] : 3Acct:[id number] Age/Sex: 75 / MDate of Service: 06/21/20 Loc: ED Accession Number: [id number] Procedure: US abdomen limited Ordering Provider: Jon Elliott D.O. PROCEDURE: US ABDOMEN LIMITED INDICATIONS: SEPSIS; GALLSTONE ON CT TECHNIQUE: Real-time scanning was performed of the abdominal and retroperitoneal organs, with image documentation. FINDINGS: Liver: Liver is normal in size and homogeneous in echotexture. Gallbladder: Gallstones are seen with 12 millimeter nonmobile stone seen lodged in the neck of gallbladder. No gallbladder wall thickening or pericholecystic fluid. No sonographic Martinez sign. Biliary ducts: Intrahepatic bile ducts are non-dilated. Extrahepatic bile duct caliber measures 8.4 mm. Normal is 6-7 mm or less in diameter, or 10 mm or less post-cholecystectomy. Pancreas: Visualized portions of the pancreas are sonographically normal. Kidneys: Simple cyst is seen in right kidney measures 7.9 x 6.6 x 7.5 centimeters in size. No right-sided hydronephrosis or nephrolithiasis. No solid masses. IMPRESSION: 1. Cholelithiasis without sonographic evidence of acute cholecystitis. 2. Borderline prominent common bile duct for patient's age. No gross choledocholithiasis. 3. Incidentally noted of simple appearing right renal cyst Dictated by: Joce Katz M.D. on 06/21/2020 at 8:15 Approved by: Jcoe Katz M.D. on 06/21/2020 at 8:19 Discharge Plan Departure Patient Disposition: Admitted as Observation Clinical Impression: Severe sepsis, Diverticulitis Discharge Date/Time: 06/21/20 10:25 Referrals: Robbie Mccullough MD [Primary Care Provider] - Admit Date/Time: 06/21/20 08:57 Admit Provider: Latrell Billy
[2020-06-21 05:07] LABS: Add Manual Diff / Slide Review NO; Basophils Absolute Auto 0 /uL (0-100); Basophils Percent Auto 0.4 % (0-2); Eosinophils Absolute Auto 100 /uL (0-450); Eosinophils Percent Auto 0.9 % (2-4); Hemoglobin 13.1 g/dL (13.5-17.5); Lymphocytes Absolute Auto 300 /uL (1100-4500); Mean Corpuscular HGB Conc 33.6 % (30-36); Mean Corpuscular Hemoglobin 30.8 PG (26-34); Mean Corpuscular Volume 91.6 fL (80-100); Monocytes Absolute Auto 200 /uL (0-900); Neutrophils Absolute Auto 8000 /uL (1500-7000); Neutrophils Percent Auto 92.7 % (50-75); Platelet Count 156 X10^3/uL (150-400); Red Blood Cell Count 4.26 X10^6/uL (4.5-5.9); Red Cell Distribution Width 14.5 % (11.6-14.8); White Blood Cell Count 8.6 X10^3/uL (4.5-11.0)
[2020-06-21] MEDS: SODIUM CHLORIDE 0.9% 677.56 ML IV (05:13)
[2020-06-21] MEDS: levoFLOXacin 750 MG/150 ML PIGGYBACK 100 MG IV (05:16)
[2020-06-21 05:23] LABS: D Dimer 593 ng/mL (<230)
[2020-06-21 05:24] LABS: Alanine Aminotransferase 23 IU/L (<50); Albumin Globulin Ratio 1.3 (1.0-2.8); Alkaline Phosphatase 68 U/L (38-126); Aspartate Aminotransferase 26 IU/L (17-59); BUN Creatinine Ratio 18.4 (6-22); Bilirubin Total 0.6 mg/dL (0.2-1.3); Blood Urea Nitrogen 25 mg/dL (9-20); Calcium 8.5 mg/dL (8.4-10.2); Carbon Dioxide 25 mmol/L (22-32); Chloride 103 mmol/L (98-107); Creatine Kinase 96 U/L (55-170); Estimated Glomerular Filt Rate 50.8 mL/min (>60); Globulin 3.2 g/dL (1.7-4.1); Glucose 187 mg/dL (80-110); HEMOLYSIS 15 (0-50); Lactate Dehydrogenase 419 U/L (313-618); Potassium 4.2 mmol/L (3.4-5.1); Sodium 139 mmol/L (137-145); Total Protein 7.2 g/dL (6.3-8.2)
[2020-06-21 05:33] LABS: Lactate (Lactic Acid) 3.9 mmol/L (0.7-2.1)
--- NOTE | 2020-06-21 05:33 | DI.CT.S_ITS ---
PROCEDURE: CT CHEST ABD PEL W CON INDICATIONS: hypoxia, nausea, vomiting, diarrhea, sepsis TECHNIQUE: After the administration of oral and intravenous contrast, 5 mm thick sections acquired from the lung apices to the symphysis. 5 mm coronal and sagittal reformats were performed, with additional 7 mm coronal MIP reformats through the lungs. For radiation dose reduction, the following was used: automated exposure control, adjustment of mA and/or kV according to patient size. COMPARISON: [facility], CT, CT CHEST ABD PEL W CON, 01/13/2020, 14:24. FINDINGS: Image quality: Excellent. CHEST: Lungs and pleura: The inspiratory volume is reduced, there is basilar atelectasis greater on the left right commensurate with the reduced inspiration. It is possible that superimposed mild pneumonia could be present in the area of apparent atelectasis at each posterior lung base. No pleural effusion is associated. No pneumothorax. Central and peripheral airways appear patent and normal in caliber. Mediastinum: Heart size is mildly enlarged, coronary artery calcifications are prominent.. No pericardial effusion. No mediastinal or hilar adenopathy by size criteria. Thoracic aorta and central pulmonary arteries are normal in size. Esophagus is normal in caliber. No hiatal hernia. Chest wall: No axillary or supraclavicular adenopathy by size criteria. Thyroid gland is normal where well seen . ABDOMEN: Solid organs: Liver is normal in size and enhancement. Gallbladder contains a 1.5 cm gallstone near the gallbladder neck but gallbladder distention or wall thickening is not found. . Biliary system is non dilated. Pancreas enhances normally. Spleen is normal in size and enhancement. No adrenal nodules. Kidneys demonstrate normal size and enhancement, without hydronephrosis. Bilateral renal cortical cysts appear simple, measuring up to 6 cm on the right and 4.5 cm on the left Peritoneum and bowel: Bowel loops demonstrate normal wall thickness and caliber. No free fluid or air. Nodes and vessels: No retroperitoneal or mesenteric adenopathy by size criteria. Aorta and inferior vena cava are normal in size. Miscellaneous: No ventral hernias. PELVIS: Genitourinary: Bladder wall thickness is normal. Miscellaneous: No inguinal hernias or adenopathy. Sigmoid diverticulosis is prominent, there is no sign of acute diverticulitis. Mild mural thickening is noted at the area of maximal sigmoid diverticulosis, middle 3rd. Bones: No suspicious bony lesions. No vertebral body compression fractures. IMPRESSION: Cardiomegaly, reduced inspiration, prominent coronary artery calcifications, lung base atelectasis and/or pneumonia is mild in overall severity. A single calcified gallstone is seen at the gallbladder neck measuring up to 1.5 cm but without evidence of acute cholecystitis or biliary obstruction. Sigmoid colonic diverticulosis is prominent, there is mural thickening of the sigmoid colon in the area of maximal diverticulosis, likely related to chronic fibrotic change. This study does not accurately establish the exact etiology of that appearance. Dictated by: Justus Bah M.D. on 06/21/2020 at 9:04 Approved by: Justus Bah M.D. on 06/21/2020 at 9:11
[2020-06-21 05:36] LABS: Troponin I < 0.012 ng/mL (0.01-0.034)
[2020-06-21 05:38] LABS: Procalcitonin 0.05 ng/mL (<0.5)
[2020-06-21 05:41] LABS: INR 1.7 (0.9-1.3)
[2020-06-21 05:43] LABS: PTT Partial Thromboplastin Tim 30 SECONDS (26.4-36.2)
[2020-06-21 05:59] LABS: Ferritin 30 ng/mL (18-464)
[2020-06-21 06:16] LABS: COVID19 -Nasal RAPID Negative (Negative)
[2020-06-21 07:18] LABS: Reflexed Lactate in 2 Hours Y
--- NOTE | 2020-06-21 07:22 | DI.US.S_ITS ---
PROCEDURE: US ABDOMEN LIMITED INDICATIONS: SEPSIS; GALLSTONE ON CT TECHNIQUE: Real-time scanning was performed of the abdominal and retroperitoneal organs, with image documentation. FINDINGS: Liver: Liver is normal in size and homogeneous in echotexture. Gallbladder: Gallstones are seen with 12 millimeter nonmobile stone seen lodged in the neck of gallbladder. No gallbladder wall thickening or pericholecystic fluid. No sonographic Martinez sign. Biliary ducts: Intrahepatic bile ducts are non-dilated. Extrahepatic bile duct caliber measures 8.4 mm. Normal is 6-7 mm or less in diameter, or 10 mm or less post-cholecystectomy. Pancreas: Visualized portions of the pancreas are sonographically normal. Kidneys: Simple cyst is seen in right kidney measures 7.9 x 6.6 x 7.5 centimeters in size. No right-sided hydronephrosis or nephrolithiasis. No solid masses. IMPRESSION: 1. Cholelithiasis without sonographic evidence of acute cholecystitis. 2. Borderline prominent common bile duct for patient's age. No gross choledocholithiasis. 3. Incidentally noted of simple appearing right renal cyst Dictated by: Joce Katz M.D. on 06/21/2020 at 8:15 Approved by: Joce Katz M.D. on 06/21/2020 at 8:19
[2020-06-21] MEDS: metroNIDAZOLE 500 MG/100 ML PIGGYBACK 100 MG IV (08:10)
--- NOTE | 2020-06-21 10:20 | PM.HP.1 ---
History of Present Illness History of Present Illness Date Patient Seen: 06/21/20 Time Patient Seen: 10:20 Chief complaint: NV x 2 days Narrative: Mr. Leandro Allen is a 74-year-old male with history significant for a history of hypertension, atrial flutter anticoagulated on Xarelto, type 2 diabetes that is diet controlled, COPD, asthma, obstructive sleep apnea, GERD, diverticulosis, adenomas of colon and bladder tumor who presents to the hospital for a fever that occurred this morning. He had some mild nausea but denies any abdominal pain, diarrhea, chest pain shortness of breath. He has a chronic productive cough that has been unchanged. In the emergency room, he was febrile to 102.8, but the remainder of his vital signs were unremarkable. His CBC did not show any leukocytosis, INR was mildly elevated at 1.7 but he does take Xarelto. Creatinine is up very slightly to 1.36, with his low value being 1.09 a few months ago. Glucose was 187. Lactic acid was 3.9. Hepatic function was unremarkable. Procalcitonin was negative. Troponin was negative. COVID-19 testing was negative. Patient had a CT abdomen which showed a large stone at the gallbladder neck but no evidence of cholecystitis. There was also some wall thickening around his known diverticular disease, but according to the radiologist as no evidence of acute diverticulitis. Patient would like to go home, I advised him that we should very least repeat his labs to see if they are improving which he agreed to. Patient History Medical History (Updated 06/21/20 @ 07:16 by Jon Elliott DO) Asthma (Inactive 11/04/11) Atrial flutter (03/20/17) Benign prostatic hyperplasia (11/04/11) Body mass index (BMI) of 30.0 to 39.9 (10/27/11) Controlled type 2 diabetes mellitus (10/03/16) Diverticulosis of sigmoid colon (03/20/17) Essential hypertension (Inactive 10/27/11) Gastroesophageal reflux disease (03/01/14) Hyperlipidemia (Inactive 10/27/11) Malignant neoplasm of urinary bladder (10/11/16) Tubular adenoma of colon (03/20/17) Surgical History History of cardiac radiofrequency ablation (Acute) History of cystoscopy Family & Social History Family History Father CAD (coronary artery disease) Hyperlipidemia Hypertension Mother CAD (coronary artery disease) Hypertension Hyperlipidemia Social History: household members spouse,family Safety & Behavioral: Feels Safe in Current Yes Environment Tobacco & Substance use: Smoking Status Never smoker alcohol intake frequency 0-2 drinks per day Substance Use Type does not use Meds Home Medications and Allergies Home Medications Medication Instructions Recorded Confirmed Type magnesium oxide 1 tab PO Q DAY #0 07/31/16 01/13/20 History metoprolol succinate [Toprol XL] 25 mg PO DAILY #0 07/31/16 01/12/20 History tamsulosin [Flomax] 0.8 mg PO 1730 #60 cap 10/14/16 01/13/20 Rx lovastatin 40 mg PO Q DAY #90 tab 03/04/17 01/12/20 Rx omeprazole 20 mg PO QDAY #90 cap 03/04/17 01/13/20 Rx potassium chloride [Klor-Con M20] 20 meq PO [facility]CC #90 tab 05/27/17 01/13/20 Rx enalapril maleate 5 mg PO QDAY #90 tab 08/03/17 01/12/20 Rx blood sugar diagnostic #100 each 04/23/18 01/13/20 Rx amiodarone 200 mg tablet 200 mg PO QPM 04/18/19 01/13/20 History liothyronine 5 mcg tablet 10 mcg PO DAILY tab 04/18/19 01/12/20 History rivaroxaban 20 mg tablet 20 mg PO QPM 04/18/19 01/13/20 History levothyroxine 75 mcg PO DAILY 01/12/20 01/12/20 History metoprolol succinate 12.5 mg PO BEDTIME 01/12/20 01/12/20 History triamterene-hydrochlorothiazid 1 cap PO DAILY 01/12/20 01/12/20 History Allergies Allergy/AdvReac Type Severity Reaction Status Date / Time latex Allergy Verified 04/28/20 11:32 Review of Systems Review of Systems Narrative: All other systems reviewed with the patient and are negative unless otherwise stated. Exam Vital Signs (past 8 hours): - 06/21/20 04:53 06/21/20 05:53 06/21/20 06:45 Temperature 102.8 F H 99.8 F H Pulse Rate 88 76 Respiratory Rate 21 25 H Blood Pressure 142/78 H 143/63 H Pulse Oximetry 91 96 06/21/20 09:39 Temperature Pulse Rate 69 Respiratory Rate 18 Blood Pressure 122/63 Pulse Oximetry 96 Oxygen Delivery Method Room Air Narrative Exam Narrative: General: Older male sitting in bedside chair and in no acute distress, well-developed, well-nourished, appropriately interactive. HEENT: Normocephalic, atraumatic. External ears without defect. Pupils equal, round, and reactive to light. Anicteric sclerae, moist conjunctivae, and no lid lag. Oropharynx free of erythema and cobble stoning with moist mucosa. Neck: Supple with full range of motion. No jugular venous distension. No lymphadenopathy or thyromegaly. Cardiovascular: Regular rate and rhythm without murmurs, rubs, or gallops appreciated. Pulmonary: Clear to auscultation bilaterally without crackles, wheezes, or rhonchi. Normal respiratory effort with no use of accessory muscles. Abdomen: Soft, obese, bowel sounds present, non-tender, non-distended. No CVA or suprapubic tenderness. No hepatosplenomegaly or masses appreciated. Extremities: No clubbing, cyanosis, or edema. Skin: Normal temperature, turgor, and texture; no rash, ulcers, or subcutaneous nodules appreciated. Neurological: Cranial nerves grossly intact. Psychiatric: Normal mood and affect. Alert and oriented to person, place, and time. Possible mild cognitive impairment with short-term memory recall deficit. Objective ECG Impression: sinus rhythm with a RBBB. No evidence of active ischemia. Labs Result Diagrams: 06/21/20 04:40 06/21/20 04:40 Labs: Laboratory Results - last 24 hr 06/21/20 06/21/20 06/21/20 04:40 04:40 04:40 WBC 8.6 RBC 4.26 L Hgb 13.1 L Hct 39.0 L MCV 91.6 MCH 30.8 MCHC 33.6 RDW 14.5 Plt Count 156 Neut % (Auto) 92.7 H Lymph % (Auto) 4.0 L Mellette % (Auto) 2.0 L Eos % (Auto) 0.9 L Baso % (Auto) 0.4 Neut # (Auto) 8000 H Lymph # (Auto) 300 L Mellette # (Auto) 200 Eos # (Auto) 100 Baso # (Auto) 0 PT INR APTT D-Dimer 593 H Sodium 139 Potassium 4.2 Chloride 103 Carbon Dioxide 25 BUN 25 H Creatinine 1.36 H Estimated GFR 50.8 L BUN/Creatinine Ratio 18.4 Glucose 187 H Lactate Calcium 8.5 Ferritin 30 Total Bilirubin 0.6 AST 26 ALT 23 Alkaline Phosphatase 68 Lactate Dehydrogenase 419 Total Creatine Kinase 96 CK-MB (CK-2) TNP CK-MB (CK-2) Rel Index TNP Troponin I < 0.012 Total Protein 7.2 Albumin 4.0 Globulin 3.2 Albumin/Globulin Ratio 1.3 Procalcitonin COVID-19 PCR 06/21/20 06/21/20 06/21/20 04:40 04:40 04:51 WBC RBC Hgb Hct MCV MCH MCHC RDW Plt Count Neut % (Auto) Lymph % (Auto) Mellette % (Auto) Eos % (Auto) Baso % (Auto) Neut # (Auto) Lymph # (Auto) Mellette # (Auto) Eos # (Auto) Baso # (Auto) PT 19.0 H INR 1.7 H APTT 30 D D-Dimer Sodium Potassium Chloride Carbon Dioxide BUN Creatinine Estimated GFR BUN/Creatinine Ratio Glucose Lactate Calcium Ferritin Total Bilirubin AST ALT Alkaline Phosphatase Lactate Dehydrogenase Total Creatine Kinase CK-MB (CK-2) CK-MB (CK-2) Rel Index Troponin I Total Protein Albumin Globulin Albumin/Globulin Ratio Procalcitonin 0.05 COVID-19 PCR Negative 06/21/20 05:00 WBC RBC Hgb Hct MCV MCH MCHC RDW Plt Count Neut % (Auto) Lymph % (Auto) Mellette % (Auto) Eos % (Auto) Baso % (Auto) Neut # (Auto) Lymph # (Auto) Mellette # (Auto) Eos # (Auto) Baso # (Auto) PT INR APTT D-Dimer Sodium Potassium Chloride Carbon Dioxide BUN Creatinine Estimated GFR BUN/Creatinine Ratio Glucose Lactate 3.9 H Calcium Ferritin Total Bilirubin AST ALT Alkaline Phosphatase Lactate Dehydrogenase Total Creatine Kinase CK-MB (CK-2) CK-MB (CK-2) Rel Index Troponin I Total Protein Albumin Globulin Albumin/Globulin Ratio Procalcitonin COVID-19 PCR Assessment & Plan Assessment & Plan narrative: Leandro Allen is a 74-year-old male with a past medical history significant for hypertension, hyperlipidemia, paroxysmal atrial fibrillation/flutter status post ablation and on Xarelto, diabetes mellitus type 2, non-insulin using and diet controlled, COPD/asthma, obstructive sleep apnea on CPAP, GERD, and bladder tumor status post resection who presented with a fever to 102.8 on admission without a clear source at this time. Started empirically on antibiotics, pending further evaluation with UA, repeat lactate, viral panel. Depending on continued evaluation may be able to discharge home later today. Fever, present on admission -unclear source at this time, but patient presented with fever of 102.8 and an elevated lactate to 3.9. -CT scan of his abdomen showed a large stone in the neck of the gallbladder, but no abdominal pain and ultrasound negative. also with bowel wall thickening but per radiology not likely diverticulitis. There are also chronic changes in his lung with a possible superimposed pneumonia as a possibility. - check a UA, does have a history of UTI - send full respiratory panel - if lactate improves it is possible the patient could be discharged home as he appears very well at this time. Chronic obstructive pulmonary disease and restrictive lung disease, present on admission. Stable. -Does not represent COPD exacerbation. -PFTs on 04/19/2019 demonstrated mild COPD and restrictive disease with decreased diffusion capacity. -Continue respiratory therapy for evaluation and treatment. Continue Albuterol MDI inhaler with spacer 2 puffs every 4 hours as needed. Diabetes mellitus type 2, non-insulin using and diet-controlled, present on admission. Stable. -Hemoglobin A1c 6.4% previously indicative of good control. -Patient is under the care of a automobile service station mechanic in [place] on [facility]. He is on no diabetic medications and uses various herbal supplements that he cannot recall. Chronic kidney disease stage 3, present on admission. -Initial creatinine 1.36, baseline has dropped from 1.5 noted during prior admission to as low as 1.09 on recent labs. -continue to follow. Given IVF in the Er. Chronic atrial fibrillation/flutter status post ablation, present on admission. Stable. -The patient denies complaints of chest pain or palpitations. -Continue rhythm control with amiodarone 200 mg daily, rate control with metoprolol succinate 25 mg daily in the morning and 12.5 mg daily at bedtime and anticoagulation with Xarelto 20 mg daily. Hypertension, chronic, present on admission. Stable. -Blood pressure is adequately controlled with initial BP 139/58 upon arrival to the ED. -Continue home enalapril 5 mg daily metoprolol succinate 25 mg daily in the morning and 12.5 mg daily at bedtime and triamterene/hydrochlorothiazide 37.5/25 mg daily. Hyperlipidemia, chronic, present on admission. Stable. -Continue home lovastatin 40 mg daily. Hypothyroidism, chronic, present on admission. Stable. -TSH normal at 1.56. -Continue levothyroxine 75 mcg daily and liothyronine 10 mcg daily. BPH, chronic, present on admission. Stable. -Continue tamsulosin 0.8 mg daily at 1730. GERD, chronic, present on admission. Stable. -Continue home PPI with Protonix 20 mg daily. Obstructive sleep apnea on CPAP, chronic, present on admission. Stable. -Continue home CPAP per RT protocol. Code status: FULL CODE. as discussed with the patient. Dispo: admitted under observation, depending on evaluation as noted above he may be able to discharge home later today.
[2020-06-21 10:56] LABS: Lactate 2HR (Lactic Acid Rflx) 2.3 mmol/L (0.7-2.1)
[2020-06-21 11:53] LABS: Adenovirus Not Detected (Not Detect); Bordetella pertussis Not Detected (Not Detect); Chlamydophila pneumoniae Not Detected (Not Detect); Coronavirus 229E Not Detected (Not Detect); Coronavirus HKU1 Not Detected (Not Detect); Coronavirus NL 63 Not Detected (Not Detect); Coronavirus OC43 Not Detected (Not Detect); Human Metapneumovirus Not Detected (Not Detect); Human Rhinovirus/Enterovirus Not Detected (Not Detect); Influenza A Not Detected (Not Detect); Influenza B Not Detected (Not Detect); Mycoplasma pneumoniae Not Detected (Not Detect); Parainfluenza Virus 1 Not Detected (Not Detect); Parainfluenza Virus 2 Not Detected (Not Detect); Parainfluenza Virus 3 Not Detected (Not Detect); Parainfluenza Virus 4 Not Detected (Not Detect); Respiratory Syncytial Virus Not Detected (Not Detect)
[2020-06-21 13:04] LABS: Bacteria Urine None Seen; RBC Urine None Seen (0-5/HPF); WBC Urine None Seen (0-5/HPF)
[2020-06-21 13:06] LABS: Appearance Urine UA CLEAR; Bilirubin Urine UA NEGATIVE (NEGATIVE); Color Urine UA YELLOW; Glucose Urine UA NEGATIVE (Negative); Ketones Urine UA NEGATIVE (NEGATIVE); Leukocyte Esterase Urine UA NEGATIVE (NEGATIVE); Nitrite Urine UA NEGATIVE (Negative); Occult Blood Urine UA TRACE-LYSED (Negative); Protein Urine UA NEGATIVE (Negative); Specific Gravity Urine UA 1.015 (1.000-1.035); Urobilinogen Urine UA 0.2 E.U./dL (0.2)
[2020-06-21 13:16] LABS: Culture Indicated Urine Cult Not Indicated; Urine Comments Microscopic Normal
[2020-06-21 14:19] LABS: Add Manual Diff / Slide Review NO; Basophils Absolute Auto 100 /uL (0-100); Basophils Percent Auto 0.4 % (0-2); Eosinophils Absolute Auto 0 /uL (0-450); Eosinophils Percent Auto 0.1 % (2-4); Hematocrit 35.6 % (41-53); Hemoglobin 11.7 g/dL (13.5-17.5); Lymphocytes Absolute Auto 300 /uL (1100-4500); Lymphocytes Percent Auto 1.7 % (25-40); Mean Corpuscular Hemoglobin 30.5 PG (26-34); Mean Corpuscular Volume 92.5 fL (80-100); Monocytes Absolute Auto 800 /uL (0-900); Monocytes Percent Auto 5.2 % (3-14); Neutrophils Absolute Auto 14300 /uL (1500-7000); Neutrophils Percent Auto 92.6 % (50-75); Platelet Count 146 X10^3/uL (150-400); Red Blood Cell Count 3.85 X10^6/uL (4.5-5.9); Red Cell Distribution Width 14.2 % (11.6-14.8); White Blood Cell Count 15.5 X10^3/uL (4.5-11.0)
[2020-06-21 14:33] LABS: Alanine Aminotransferase 25 IU/L (<50); Albumin 3.4 g/dL (3.5-5.0); Albumin Globulin Ratio 1.2 (1.0-2.8); Alkaline Phosphatase 53 U/L (38-126); Aspartate Aminotransferase 28 IU/L (17-59); BUN Creatinine Ratio 18.4 (6-22); Bilirubin Total 0.6 mg/dL (0.2-1.3); Bilirubin Unconjugated 0.5 mg/dL (0.0-1.1); Blood Urea Nitrogen 23 mg/dL (9-20); Calcium 7.9 mg/dL (8.4-10.2); Carbon Dioxide 26 mmol/L (22-32); Chloride 105 mmol/L (98-107); Globulin 2.9 g/dL (1.7-4.1); Glucose 157 mg/dL (80-110); HEMOLYSIS < 15 (0-50); Magnesium 1.8 mg/dL (1.6-2.3); Potassium 4.2 mmol/L (3.4-5.1); Sodium 137 mmol/L (137-145); Total Protein 6.3 g/dL (6.3-8.2)
[2020-06-21 14:34] LABS: Lactate (Lactic Acid) 2.1 mmol/L (0.7-2.1)
[2020-06-21] MEDS: TAMSULOSIN 0.4 MG CAPSULE 0.8 MG PO (18:55)
[2020-06-21] MEDS: SENNOSIDES 8.6 MG TABLET 17.2 MG PO (21:24)
[2020-06-21] MEDS: METOPROLOL ER 25 MG TABLET 12.5 MG PO (21:24)
[2020-06-21] MEDS: AMOXICILLIN/CLAV 875/125 MG 1 TAB PO (21:24)
[2020-06-22 00:52] VITALS: BP 150/67; PULSE 82; RESP 20; TEMP 36.4; O2SAT 95
[2020-06-22 02:00] VITALS: O2SAT 95
[2020-06-22 04:28] VITALS: BP 135/66; PULSE 70; RESP 20; TEMP 36.4; O2SAT 95
[2020-06-22 04:37] LABS: Add Manual Diff / Slide Review NO; Basophils Absolute Auto 0 /uL (0-100); Basophils Percent Auto 0.5 % (0-2); Eosinophils Absolute Auto 100 /uL (0-450); Eosinophils Percent Auto 1.6 % (2-4); Hematocrit 35.9 % (41-53); Lymphocytes Absolute Auto 500 /uL (1100-4500); Lymphocytes Percent Auto 5.2 % (25-40); Mean Corpuscular HGB Conc 33.4 % (30-36); Mean Corpuscular Hemoglobin 30.5 PG (26-34); Mean Corpuscular Volume 91.3 fL (80-100); Monocytes Absolute Auto 900 /uL (0-900); Monocytes Percent Auto 9.7 % (3-14); Neutrophils Absolute Auto 7300 /uL (1500-7000); Platelet Count 127 X10^3/uL (150-400); Red Blood Cell Count 3.93 X10^6/uL (4.5-5.9); Red Cell Distribution Width 14.4 % (11.6-14.8); White Blood Cell Count 8.8 X10^3/uL (4.5-11.0)
[2020-06-22 04:49] LABS: Alanine Aminotransferase 25 IU/L (<50); Albumin 3.5 g/dL (3.5-5.0); Albumin Globulin Ratio 1.2 (1.0-2.8); Alkaline Phosphatase 57 U/L (38-126); Aspartate Aminotransferase 24 IU/L (17-59); BUN Creatinine Ratio 20.8 (6-22); Bilirubin Total 0.6 mg/dL (0.2-1.3); Bilirubin Unconjugated 0.4 mg/dL (0.0-1.1); Blood Urea Nitrogen 25 mg/dL (9-20); Calcium 8.2 mg/dL (8.4-10.2); Carbon Dioxide 30 mmol/L (22-32); Chloride 103 mmol/L (98-107); Estimated Glomerular Filt Rate 58.7 mL/min (>60); Globulin 2.9 g/dL (1.7-4.1); Glucose 119 mg/dL (80-110); HEMOLYSIS < 15 (0-50); Magnesium 1.9 mg/dL (1.6-2.3); Potassium 3.9 mmol/L (3.4-5.1); Sodium 136 mmol/L (137-145); Total Protein 6.4 g/dL (6.3-8.2)
[2020-06-22 05:00] LABS: Procalcitonin 26.61 ng/mL (<0.5)
[2020-06-22] MEDS: LEVOTHYROXINE 75 MCG TABLET PO (05:45)
[2020-06-22] MEDS: PANTOPRAZOLE 20 MG TABLET PO (05:45)
[2020-06-22 05:53] VITALS: O2SAT 95
[2020-06-22 08:00] VITALS: BP 135/64; PULSE 65; RESP 20; TEMP 36.4; O2SAT 95
[2020-06-22] MEDS: TRIAMTERENE/HCTZ 37.5/25 TABLET 1 CAP PO (09:59)
[2020-06-22] MEDS: ENALAPRIL 5 MG TABLET PO (09:59)
[2020-06-22] MEDS: LOVASTATIN 20 MG TABLET 40 MG PO (10:00)
[2020-06-22] MEDS: MAGNESIUM OXIDE 400 MG TABLET PO (10:00)
[2020-06-22] MEDS: METOPROLOL ER 25 MG TABLET PO (10:18)
[2020-06-22] MEDS: metroNIDAZOLE 500 MG TABLET PO (10:18)
[2020-06-22] MEDS: POTASSIUM CHLORIDE 20 MEQ TAB PO (10:18)
--- NOTE | 2020-06-22 10:50 | P.DS_ITS ---
History of Present Illness History of Present Illness Date Patient Seen: 06/21/20 Chief complaint: NV x 2 days Narrative: Written by Dr. Billy: Mr. Leandro Allen is a 74-year-old male with history significant for a history of hypertension, atrial flutter anticoagulated on Xarelto, type 2 diabetes that is diet controlled, COPD, asthma, obstructive sleep apnea, GERD, diverticulosis, adenomas of colon and bladder tumor who presents to the hospital for a fever that occurred this morning. He had some mild nausea but denies any abdominal pain, diarrhea, chest pain shortness of breath. He has a chronic productive cough that has been unchanged. In the emergency room, he was febrile to 102.8, but the remainder of his vital signs were unremarkable. His CBC did not show any leukocytosis, INR was mildly elevated at 1.7 but he does take Xarelto. Creatinine is up very slightly to 1.36, with his low value being 1.09 a few months ago. Glucose was 187. Lactic acid was 3.9. Hepatic function was unremarkable. Procalcitonin was negative. Troponin was negative. COVID-19 testing was negative. Patient had a CT abdomen which showed a large stone at the gallbladder neck but no evidence of cholecystitis. There was also some wall thickening around his known dive rticular disease, but according to the radiologist as no evidence of acute diverticulitis. Patient would like to go home, I advised him that we should very least repeat his labs to see if they are improving which he agreed to. Discharge Providers Provider Date of admission: 06/21/20 08:57 Discharge Date: 06/22/20 Primary care physician: Robbie Mccullough MD Discharge provider: Sindy Farmer DO Summary Hospital Course Discharge Diagnosis: 1. Acute sigmoid diverticulitis with E. coli bacteremia, present on admission. Active. 2. Chronic obstructive pulmonary disease and restrictive lung disease, present on admission. Stable. 3. Diabetes mellitus type 2, non-insulin using and diet-controlled, present on admission. Stable. 4. Chronic kidney disease stage 3, present on admission. 5. Chronic atrial fibrillation/flutter, status post ablation, present on admi ssion. Stable. 6. Hypertension, chronic, present on admission. Stable. 7. Hyperlipidemia, chronic, present on admission. Stable. 8. Hypothyroidism, chronic, present on admission. Stable. 9. BPH, chronic, present on admission. Stable. 10. GERD, chronic, present on admission. Stable. 11. Obstructive sleep apnea on CPAP, chronic, present on admission. Stable. Hospital Course: Leandro Allen is a 75-year-old male with a past medical history significant for hypertension, hyperlipidemia, paroxysmal atrial fibrillation/flutter status post ablation and on Xarelto, diabetes mellitus type 2, non-insulin using and diet controlled, COPD/asthma, obstructive sleep apnea on CPAP, GERD, and bladder tumor status post resection who presented with a fever, chills, rigors and nausea with 1 episode of emesis. 1. Acute sigmoid diverticulitis with E. coli bacteremia, present on admission. Active. -Patient presented with fever (temperature 102.8? F), chills, rigors, and nausea with one episode of emesis. Patient had similar presentation due to diverticulitis at prior admission. -Initial WBC normal at 8.6 and peaked at 15.5 and normalized now 8.8. Initial procalcitonin negative at < 0.05 WBC then elevated and likely peaking at 26.61. Continue to monitor WBC and procalcitonin daily. Recommended repeat CBC, BMP and procalcitonin in 3-5 days with PCP follow-up appointment. -Initial lactic acid 3.9 and continue to trend until less than 2.0. Lactic acid elevated at 2.5 and trended until under 2.0. -CT abdomen and pelvis with contrast demonstrated prominent sigmoid colonic diverticulosis with mural thickening of sigmoid colon in area of maximal diverticulosis which likely represents diverticulitis. Noted cardiomegaly, prominent coronary artery calcifications, bibasilar atelectasis Cardiomegaly, and a single calcified gallstone is seen at the gallbladder neck measuring up to 1.5 cm but without evidence of acute cholecystitis or biliary obstruction. Abdominal ultrasound ruled out acute cholecystitis. -Blood culture x2 have no growth to date. Other infectious workup including urinalysis and chest x-ray and respiratory panel were negative. -Received 2 L NS in ED. Continued gentle IV fluid hydration until adequately hydrated then discontinued. -Received augmentin which was discontinued. Continued metronidazole 500 mg 3 times daily and levofloxacin 750 mg daily for total of 14 days to treat d iverticulitis. -Discussed with on-call general surgery, Dr. Quiñones, who based on CT abdomen and pelvis with contrast and prior similar presentation with diverticulitis that his infection is likely due to diverticulitis and agrees with a 2 week course of antibiotics and referral to general surgery for further evaluation of diverticular disease and possible preemptive partial colectomy 2. Chronic obstructive pulmonary disease and restrictive lung disease, present on admission. Stable. -Does not represent COPD exacerbation. -PFTs on 04/19/2019 demonstrated mild COPD and restrictive disease with decreased diffusion capacity. -Continued respiratory therapy for evaluation and treatment. Continued Albuterol MDI inhaler with spacer 2 puffs every 4 hours as needed. 3. Diabetes mellitus type 2, non-insulin using and diet-controlled, present on admission. Stable. -Hemoglobin A1c 6.4% in 12/2019indicative of excellent glycemic control. -Patient is under the care of a dialysis tech in [place] on [facility]. He is on no diabetic medications and uses various herbal supplements that he cannot recall. 4. Chronic kidney disease stage 3, present on admission. -Initial creatinine 1.36. Baseline has dropped from 1.5 noted during prior admission to 1.1-1.2 on recent labs. -Avoided nephrotoxic agents. -Received 2L of NS in ED. Discontinued IVF and encouraged PO intake of fluids. -Continued to monitor creatinine daily. 5. Chronic atrial fibrillation/flutter, status post ablation, present on admission. Stable. -The patient denies complaints of chest pain or palpitations. Patient was in sinus rhythm throughout hospitalization. -Continued rhythm control with amiodarone 200 mg daily, rate control with metoprolol succinate 25 mg daily in the morning and 12.5 mg daily at bedtime and anticoagulation with Xarelto 20 mg daily in the evening. 6. Hypertension, chronic, present on admission. Stable. -Continued home enalapril 5 mg daily, metoprolol succinate 25 mg daily in the morning and 12.5 mg daily at bedtime and triamterene/hydrochlorothiazide 37.5/25 mg daily. 7. Hyperlipidemia, chronic, present on admission. Stable. -Continued home lovastatin 40 mg daily. 8. Hypothyroidism, chronic, present on admission. Stable. -TSH normal at 1.30 in 05/16/2020. -Continued home levothyroxine 75 mcg daily and liothyronine 10 mcg daily. 9. BPH, chronic, present on admission. Stable. -Continued tamsulosin 0.8 mg daily at 1730. 10. GERD, chronic, present on admission. Stable. -Continued home PPI with Protonix 20 mg daily. 11. Obstructive sleep apnea on CPAP, chronic, present on admission. Stable. -Continued home CPAP per RT protocol. Exam Vital Signs (past 8 hours): - 06/22/20 04:28 06/22/20 05:53 06/22/20 08:00 Temperature 97.5 F L 97.6 F Pulse Rate 70 65 Respiratory Rate 20 20 Blood Pressure 135/66 135/64 Pulse Oximetry 95 95 95 Oxygen Delivery Method Room Air,CPAP Oxygen Flow Rate 0 Narrative Exam Narrative: General: Older male sitting in bedside chair and in no acute distress, well- developed, well-nourished, appropriately interactive. HEENT: Normocephalic, atraumatic. External ears without defect. Pupils equal, round, and reactive to light. Anicteric sclerae, moist conjunctivae, and no lid lag. Oropharynx free of erythema and cobble stoning with moist mucosa. Neck: Supple with full range of motion. No jugular venous distension. No lymphadenopathy or thyromegaly. Cardiovascular: Regular rate and rhythm without murmurs, rubs, or gallops appreciated. Pulmonary: Clear to auscultation bilaterally without crackles, wheezes, or rhonchi. Normal respiratory effort with no use of accessory muscles. Abdomen: Soft, obese, bowel sounds present, non-tender, non-distended. No hepatosplenomegaly or masses appreciated. Extremities: No clubbing, cyanosis, or edema. Skin: Normal temperature, turgor, and texture; no rash, ulcers, or subcutaneous nodules appreciated. Neurological: Cranial nerves grossly intact. Psychiatric: Normal mood and affect. Alert and oriented to person, place, and time. Mild cognitive impairment with short-term memory recall deficit. Objective Labs Result Diagrams: 06/22/20 04:20 06/22/20 04:20 Labs: Laboratory Results - last 24 hr 06/21/20 06/21/20 06/21/20 04:51 10:31 11:00 WBC RBC Hgb Hct MCV MCH MCHC RDW Plt Count Neut % (Auto) Lymph % (Auto) [place] % (Auto) Eos % (Auto) Baso % (Auto) Neut # (Auto) Lymph # (Auto) [place] # (Auto) Eos # (Auto) Baso # (Auto) Sodium Potassium Chloride Carbon Dioxide BUN Creatinine Estimated GFR BUN/Creatinine Ratio Glucose Lactate 2.3 H Calcium Magnesium Total Bilirubin Conjugated Bilirubin Unconjugated Bilirubin AST ALT Alkaline Phosphatase Total Protein Albumin Globulin Albumin/Globulin Ratio Procalcitonin Urine Color Urine Appearance Urine pH Ur Specific [place] Urine Protein Urine Glucose (UA) Urine Ketones Urine Occult Blood Urine Nitrate Urine Bilirubin Urine Urobilinogen Ur Leukocyte Esterase Urine RBC Urine WBC Urine Bacteria Ur Culture Indicated? Micro UA Comment Nasal Screen MRSA (PCR) Negative for mrsa Chlamy pneumoniae PCR Not detected Adenovirus (PCR) Not detected B.parapertussis DNA PCR Not detected Coronavirus OC43 (PCR) Not detected Coronavirus HKU1 (PCR) Not detected Coronavirus 229E (PCR) Not detected Coronavirus NL63 (PCR) Not detected Human Metapneumovir PCR Not detected Influenza Type A (PCR) Not detected Influenza Type B (PCR) Not detected M. pneumoniae (PCR) Not detected Parainfluenza 1 (PCR) Not detected Parainfluenza 2 (PCR) Not detected Parainfluenza 3 (PCR) Not detected Parainfluenza 4 (PCR) Not detected RSV (PCR) Not detected Entero/Rhino (PCR) Not detected 06/21/20 06/21/20 06/21/20 12:10 14:09 14:09 WBC 15.5 H D RBC 3.85 L Hgb 11.7 L Hct 35.6 L MCV 92.5 MCH 30.5 MCHC 33.0 RDW 14.2 Plt Count 146 L Neut % (Auto) 92.6 H Lymph % (Auto) 1.7 L [place] % (Auto) 5.2 Eos % (Auto) 0.1 L Baso % (Auto) 0.4 Neut # (Auto) 95650 H Lymph # (Auto) 300 L [place] # (Auto) 800 Eos # (Auto) 0 Baso # (Auto) 100 Sodium 137 Potassium 4.2 Chloride 105 Carbon Dioxide 26 BUN 23 H Creatinine 1.25 Estimated GFR 56.0 L BUN/Creatinine Ratio 18.4 Glucose 157 H Lactate Calcium 7.9 L Magnesium 1.8 Total Bilirubin 0.6 Conjugated Bilirubin 0.0 Unconjugated Bilirubin 0.5 AST 28 ALT 25 Alkaline Phosphatase 53 Total Protein 6.3 Albumin 3.4 L Globulin 2.9 Albumin/Globulin Ratio 1.2 Procalcitonin Urine Color Yellow Urine Appearance Clear Urine pH 5.0 Ur Specific [place] 1.015 Urine Protein Negative Urine Glucose (UA) Negative Urine Ketones Negative Urine Occult Blood Trace-lysed Urine Nitrate Negative Urine Bilirubin Negative Urine Urobilinogen 0.2 Ur Leukocyte Esterase Negative Urine RBC None seen Urine WBC None seen Urine Bacteria None seen Ur Culture Indicated? Cult not indicated Micro UA Comment Microscopic normal Nasal Screen MRSA (PCR) Chlamy pneumoniae PCR Adenovirus (PCR) B.parapertussis DNA PCR Coronavirus OC43 (PCR) Coronavirus HKU1 (PCR) Coronavirus 229E (PCR) Coronavirus NL63 (PCR) Human Metapneumovir PCR Influenza Type A (PCR) Influenza Type B (PCR) M. pneumoniae (PCR) Parainfluenza 1 (PCR) Parainfluenza 2 (PCR) Parainfluenza 3 (PCR) Parainfluenza 4 (PCR) RSV (PCR) Entero/Rhino (PCR) 06/21/20 06/22/20 06/22/20 14:09 04:20 04:20 WBC 8.8 RBC 3.93 L Hgb 12.0 L Hct 35.9 L MCV 91.3 MCH 30.5 MCHC 33.4 RDW 14.4 Plt Count 127 L Neut % (Auto) 83.0 H Lymph % (Auto) 5.2 L [place] % (Auto) 9.7 Eos % (Auto) 1.6 L Baso % (Auto) 0.5 Neut # (Auto) 7300 H Lymph # (Auto) 500 L [place] # (Auto) 900 Eos # (Auto) 100 Baso # (Auto) 0 Sodium Potassium Chloride Carbon Dioxide BUN Creatinine Estimated GFR BUN/Creatinine Ratio Glucose Lactate 2.1 Calcium Magnesium Total Bilirubin Conjugated Bilirubin Unconjugated Bilirubin AST ALT Alkaline Phosphatase Total Protein Albumin Globulin Albumin/Globulin Ratio Procalcitonin 26.61 H Urine Color Urine Appearance Urine pH Ur Specific [place] Urine Protein Urine Glucose (UA) Urine Ketones Urine Occult Blood Urine Nitrate Urine Bilirubin Urine Urobilinogen Ur Leukocyte Esterase Urine RBC Urine WBC Urine Bacteria Ur Culture Indicated? Micro UA Comment Nasal Screen MRSA (PCR) Chlamy pneumoniae PCR Adenovirus (PCR) B.parapertussis DNA PCR Coronavirus OC43 (PCR) Coronavirus HKU1 (PCR) Coronavirus 229E (PCR) Coronavirus NL63 (PCR) Human Metapneumovir PCR Influenza Type A (PCR) Influenza Type B (PCR) M. pneumoniae (PCR) Parainfluenza 1 (PCR) Parainfluenza 2 (PCR) Parainfluenza 3 (PCR) Parainfluenza 4 (PCR) RSV (PCR) Entero/Rhino (PCR) 06/22/20 04:20 WBC RBC Hgb Hct MCV MCH MCHC RDW Plt Count Neut % (Auto) Lymph % (Auto) [place] % (Auto) Eos % (Auto) Baso % (Auto) Neut # (Auto) Lymph # (Auto) [place] # (Auto) Eos # (Auto) Baso # (Auto) Sodium 136 L Potassium 3.9 Chloride 103 Carbon Dioxide 30 BUN 25 H Creatinine 1.20 Estimated GFR 58.7 L BUN/Creatinine Ratio 20.8 Glucose 119 H Lactate Calcium 8.2 L Magnesium 1.9 Total Bilirubin 0.6 Conjugated Bilirubin 0.0 Unconjugated Bilirubin 0.4 AST 24 ALT 25 Alkaline Phosphatase 57 Total Protein 6.4 Albumin 3.5 Globulin 2.9 Albumin/Globulin Ratio 1.2 Procalcitonin Urine Color Urine Appearance Urine pH Ur Specific [place] Urine Protein Urine Glucose (UA) Urine Ketones Urine Occult Blood Urine Nitrate Urine Bilirubin Urine Urobilinogen Ur Leukocyte Esterase Urine RBC Urine WBC Urine Bacteria Ur Culture Indicated? Micro UA Comment Nasal Screen MRSA (PCR) Chlamy pneumoniae PCR Adenovirus (PCR) B.parapertussis DNA PCR Coronavirus OC43 (PCR) Coronavirus HKU1 (PCR) Coronavirus 229E (PCR) Coronavirus NL63 (PCR) Human Metapneumovir PCR Influenza Type A (PCR) Influenza Type B (PCR) M. pneumoniae (PCR) Parainfluenza 1 (PCR) Parainfluenza 2 (PCR) Parainfluenza 3 (PCR) Parainfluenza 4 (PCR) RSV (PCR) Entero/Rhino (PCR) Discharge Plan Discharge Plan Patient Disposition: Home Discharge comment: You are being discharged home. You have diverticulitis. You are being treated with levofloxacin 750 mg daily and metronidazole 500 mg 3 times daily for 12 additional days to complete 14 days total of antibiotic therapy. Please follow-up with your primary care physicians Minerva VALIENTE, at your scheduled appointment for hospital follow-up, repeat lab work and referral to general surgery to discuss treatment options for severe diverticular disease. Discharge orders & Medications Prescriptions: New metronidazole 500 mg Tablet 500 mg PO TID Qty: 36 RF: 0 levofloxacin 250 mg Tablet 750 mg PO DAILY Qty: 12 RF: 0 Continued metoprolol succinate [Toprol XL] 25 MG tablet extended release 24 hr 25 mg PO DAILY Qty: 0 RF: 0 magnesium oxide 400 MG tablet 1 tab PO Q DAY Qty: 0 RF: 0 tamsulosin [Flomax] 0.4 MG capsule,extended release 24hr 0.8 mg PO 1730 Qty: 60 RF: 3 lovastatin 40 MG tablet 40 mg PO Q DAY Qty: 90 RF: 3 omeprazole 20 MG capsule,delayed release(DR/EC) 20 mg PO QDAY Qty: 90 RF: 3 potassium chloride [Klor-Con M20] 20 MEQ tablet,ER particles/crystals 20 meq PO AMCC Qty: 90 RF: 0 enalapril maleate 5 MG tablet 5 mg PO QDAY Qty: 90 RF: 1 (DME) blood sugar diagnostic [True Metrix Glucose Test Strip] strip See Dose Instructions .ROUTE .MEDSUPPLY Qty: 100 RF: 4 metoprolol succinate 25 mg Tablet Extended Release 24 Hr 12.5 mg PO BEDTIME RF: 0 levothyroxine 75 mcg Capsule 75 mcg PO DAILY RF: 0 triamterene-hydrochlorothiazid 37.5-25 mg capsule 1 cap PO DAILY RF: 0 amiodarone 200 mg tablet 100 mg PO QPM RF: 0 liothyronine 5 mcg tablet 10 mcg PO DAILY RF: 0 Xarelto 20 mg tablet 20 mg PO QPM RF: 0 Other Ambulatory Orders: Basic Metabolic Panel (Stat) Timeframe: 3 Days Facility: [facility] - Location: Laboratory Ordered By: Sindy Farmer Complete Blood Count AUTO DIFF (Stat) Timeframe: 3 Days Facility: [facility] - Location: Laboratory Ordered By: Sindy Farmer Procalcitonin (Routine) Timeframe: 3 Days Facility: [facility] - Location: Laboratory Ordered By: Sindy Farmer Follow up/Referrals: Robbie Mccullough MD [Primary Care Provider] - 3-5 Days (Follow up appointment with Dr Mccullough's PA Minerva Encinas. June 28 check in time is at 3:00) Diet/Activity/Treatments Diet: Low-fat, Low-sodium and Low-cholesterol Activity: Activity as tolerated Visit Report/Discharge Packet Instructions: DI for Diverticulitis Visit Report Forms: Patient Portal/API, Stroke Signs & Symptoms Discharge Data Primary Care Provider: Robbie Mccullough Attending Provider: Latrell Blily Admit Date/Time: 06/21/20 08:57 Quality VTE Deep Vein Thrombosis/Pulmonary Embolism Present on Admission: No
[2020-06-22] MEDS: LIOTHYRONINE 5 MCG TABLET 10 MCG PO (11:23)
[2020-06-22] MEDS: levoFLOXacin 250 MG TABLET 750 MG PO (11:24)
--- NOTE | 2020-06-22 11:26 | CM.DANOTE ---
Discharge Planning/Care Management DCP: asssessment: case received, EMR reviewed and met with pt durinig Team Bedside Rounds Introduced self and role. Pt is a 75 year old male who admitted yesterday to care of hospitalist team. PCP: Dr. Claudia Mccullough Payer: Medicare and [employer] Dr. Farmer stated that pt was stable for d/c to home today and she would kekep him on antibiotics for 2 weeks. Pt confirmed his Loli would be picking him up. RN Sarah anticipated he would be ready to leave by 1300 and pt said he would call his to let her know. No concerns re the d/c today are noted. CM Discharge Assessment Start: 06/22/20 11:25 Freq: Status: Active Protocol: Document 06/22/20 11:25 ITV (Rec: 06/22/20 11:26 ITV [id number]) Discharge Planning Assessment Advance Directives? Yes Advance Directives on File Yes History Provided By Patient,Medical Record Prior Living Arrangements House Household Members spouse Independent with ADL's Yes Is patient alert and oriented? Yes Review Status In Process
--- NOTE | 2020-06-22 13:03 | PC.NURSE ---
PT DENIES PAIN OTHER THAN OCCASIONAL CRAMPING CONTINUED ON FLAGYL AND LEVAQUIN AND EDUCATED OF SAME FOR DISCHARGE AT HOME- REVIEWED POST HOSPITALIZATION PLAN OF CARE WITH PT AND ANSWERED ALL QUESTIONS TO HIS SATISFACTION- DISCHARGED FROM HOSPITAL AT THIS TIME
== END 2020-06-22 13:12 | disposition home or self-care (01) ==
LOC: ED 08:40 → AC 08:57 → ICU 10:17
PROVIDERS: Emergency Medicine; Admitting Provider Internal Medicine; Emergency Provider Emergency Medicine; PCP Internal Medicine; Referring Provider Emergency Medicine; Visit Provider Internal Medicine
DX: K57.92 Diverticulitis of intestine, part unspecified, without perforation or abscess without bleeding (principal); B96.20 Unspecified Escherichia coli [E. coli] as the cause of diseases classified elsewhere; R78.81 Bacteremia; R11.2 Nausea with vomiting, unspecified; Z79.01 Long term (current) use of anticoagulants; I12.9 Hypertensive chronic kidney disease with stage 1 through stage 4 chronic kidney disease, or unspecified chronic kidney disease; I48.92 Unspecified atrial flutter; E11.9 Type 2 diabetes mellitus without complications; J44.9 Chronic obstructive pulmonary disease, unspecified; G47.33 Obstructive sleep apnea (adult) (pediatric); K21.9 Gastro-esophageal reflux disease without esophagitis; E03.9 Hypothyroidism, unspecified; N18.3 Chronic kidney disease, stage 3 (moderate); N40.0 Benign prostatic hyperplasia without lower urinary tract symptoms; Z11.59 Encounter for screening for other viral diseases
CPT/HCPCS: 36415; 71045; 71260; 74177; 76705; 80048; 80053; 80076; 81001; 81003; 82550; 82728; 82962; 83605; 83615; 83735; 84145; 84484; 85025; 85379; 85610; 85730; 87040; 87633; 87635; 87797; 93005; 96365; 96366; 96367; 99284; G0378; J1956; Q9967

== ENCOUNTER → 2020-06-25 09:25 | Outpatient (CLI) | payer MEDICARE, SELFPAY ==
[2020-06-21 10:21] VITALS: BMI 38.0
[2020-06-25 09:51] LABS: Add Manual Diff / Slide Review NO; Basophils Absolute Auto 0 /uL (0-100); Basophils Percent Auto 0.8 % (0-2); Eosinophils Absolute Auto 200 /uL (0-450); Eosinophils Percent Auto 3.5 % (2-4); Hematocrit 39.1 % (41-53); Hemoglobin 13.3 g/dL (13.5-17.5); Lymphocytes Absolute Auto 900 /uL (1100-4500); Lymphocytes Percent Auto 14.3 % (25-40); Mean Corpuscular Hemoglobin 30.9 PG (26-34); Mean Corpuscular Volume 90.7 fL (80-100); Monocytes Absolute Auto 600 /uL (0-900); Monocytes Percent Auto 10.3 % (3-14); Neutrophils Absolute Auto 4300 /uL (1500-7000); Neutrophils Percent Auto 71.1 % (50-75); Platelet Count 163 X10^3/uL (150-400); Red Blood Cell Count 4.31 X10^6/uL (4.5-5.9); Red Cell Distribution Width 14.4 % (11.6-14.8)
[2020-06-25 10:00] LABS: Blood Urea Nitrogen 21 mg/dL (9-20); Calcium 9.1 mg/dL (8.4-10.2); Carbon Dioxide 30 mmol/L (22-32); Chloride 103 mmol/L (98-107); Estimated Glomerular Filt Rate 53.1 mL/min (>60); Glucose 139 mg/dL (80-110); HEMOLYSIS < 15 (0-50); Sodium 140 mmol/L (137-145)
[2020-06-25 10:40] LABS: Procalcitonin 2.73 ng/mL (<0.5)
== END ==
PROVIDERS: PCP Internal Medicine; Referring Provider Internal Medicine; Visit Provider Internal Medicine
DX: K57.92 Diverticulitis of intestine, part unspecified, without perforation or abscess without bleeding (principal)
CPT/HCPCS: 36415; 80048; 84145; 85025

== ENCOUNTER → 2020-07-30 07:58 | Outpatient (CLI) | payer MEDICARE, SELFPAY ==
[2020-06-21 10:21] VITALS: BMI 38.0
[2020-07-30 09:49] LABS: Free T3, Triiodothyronine Free 4.31 pg/mL (2.77-5.27); Free T4, Direct Thyroxine 1.43 ng/dL (0.78-2.19)
[2020-07-30 10:03] LABS: Thyroid Stimulating Hormone 1.72 uIU/mL (0.47-4.68)
== END ==
PROVIDERS: PCP Internal Medicine; Referring Provider Internal Medicine Endocrinology, Diabetes & Metabolism; Visit Provider Internal Medicine Endocrinology, Diabetes & Metabolism
DX: E03.8 Other specified hypothyroidism (principal)
CPT/HCPCS: 36415; 84439; 84443; 84481

== ENCOUNTER 2020-08-15 12:42 | Day surgery (SDC) | payer MEDICARE, SELFPAY ==
[2020-06-21 10:21] VITALS: BMI 38.0
--- NOTE | 2020-08-15 | PATH_ITS ---
[facility] Accession Number: [id number] . 01 Material submitted: . colon - SIGMOID . 01 Clinical history: . INFLAMMATION DX COLONOSCOPY . 02 Diagnosis: Sigmoid Colon, Biopsy: Minimal active colitis with mild crypt architectural distortion; please see comment. Negative for granulomata, dysplasia or malignancy. MRV 08/20/2020 1206 Local . 02 Comment: The histologic findings raise a differential diagnosis including infection, drug/toxin-induced injury, diverticular disease-associated colitis, and, in the appropriate clinical setting, idiopathic inflammatory bowel disease. . 02 Electronically signed: . Silvano Garcia MD, PhD, Pathologist NPI- [id number] . 01 Gross description: . Received in formalin, labeled sigmoid inflammation, and consists of three ramires fragments of soft tissue measuring 0.5 x 0.4 x 0.2 cm in aggregate. The specimen is entirely submitted in cassette A1. ([id number]) /MRV 08/16/2020 1502 Local . 02 Pathologist provided ICD-10: K52.9 . 02 CPT . 966737 Performed at: 01 [facility] [address], [place], [place] [id number] MD Stephane Rivas MD Phone: [phone] Performed at: 02 [facility] [address] [place], [place] [id number] MD Kellee Christiansen MD Phone: [phone]
[2020-08-15 13:19] LABS: COVID19 -Nasal RAPID Negative (Negative)
[2020-08-15 13:52] VITALS: BP 159/76; PULSE 69; RESP 16; TEMP 35.9; O2SAT 96; BMI 37.5
[2020-08-15] MEDS: SODIUM CHLORIDE 0.9% 1,000 ML 70 ML IV (14:05)
--- NOTE | 2020-08-15 14:30 | PM.HP.1 ---
History of Present Illness History of Present Illness Date Patient Seen: 08/15/20 Time Patient Seen: 14:30 Chief complaint: DX COLONOSCOPY Narrative: Patient is a pleasant 75-year-old male who presented for colonoscopy. He was last evaluated in the office on July 19, 2020 for further evaluation after acute diverticulitis with E coli bacteremia. His last colonoscopy was in February of 2017. He denies any changes in his medications or medical history since that time. He has been off of his Xarelto since Thursday. Patient History Medical History Asthma (Inactive 11/04/11) Atrial flutter (03/20/17) Benign prostatic hyperplasia (11/04/11) Body mass index (BMI) of 30.0 to 39.9 (10/27/11) Controlled type 2 diabetes mellitus (10/03/16) Diverticulosis of sigmoid colon (03/20/17) Essential hypertension (Inactive 10/27/11) Gastroesophageal reflux disease (03/01/14) Hyperlipidemia (Inactive 10/27/11) Malignant neoplasm of urinary bladder (10/11/16) Tubular adenoma of colon (03/20/17) Surgical History History of cardiac radiofrequency ablation (Acute) History of cystoscopy Family & Social History Family History Father CAD (coronary artery disease) Hyperlipidemia Hypertension Mother CAD (coronary artery disease) Hypertension Hyperlipidemia Social History: household members spouse Tobacco & Substance use: Smoking Status Never smoker alcohol intake never alcohol intake frequency 0-2 drinks per day Substance Use Type does not use Meds Home Medications and Allergies Home Medications Medication Instructions Recorded Confirmed Type magnesium oxide 1 tab PO Q DAY #0 07/31/16 08/15/20 History metoprolol succinate [Toprol XL] 25 mg PO DAILY #0 07/31/16 08/15/20 History tamsulosin [Flomax] 0.8 mg PO 1730 #60 cap 10/14/16 08/15/20 Rx lovastatin 40 mg PO Q DAY #90 tab 03/04/17 08/15/20 Rx omeprazole 20 mg PO QDAY #90 cap 03/04/17 08/15/20 Rx potassium chloride [Klor-Con M20] 20 meq PO AMCC #90 tab 05/27/17 08/15/20 Rx enalapril maleate 5 mg PO QDAY #90 tab 08/03/17 08/15/20 Rx blood sugar diagnostic #100 each 04/23/18 06/21/20 Rx amiodarone 200 mg tablet 100 mg PO QPM 04/18/19 08/15/20 History liothyronine 5 mcg tablet 10 mcg PO DAILY tab 04/18/19 08/15/20 History rivaroxaban 20 mg tablet 20 mg PO QPM 04/18/19 08/15/20 History levothyroxine 75 mcg PO DAILY 01/12/20 08/15/20 History metoprolol succinate 12.5 mg PO BEDTIME 01/12/20 08/15/20 History triamterene-hydrochlorothiazid 1 cap PO DAILY 01/12/20 08/15/20 History levofloxacin 750 mg PO DAILY #12 tab 06/22/20 08/15/20 Rx metronidazole 500 mg PO TID #36 tab 06/22/20 08/15/20 Rx Allergies Allergy/AdvReac Type Severity Reaction Status Date / Time latex Allergy Verified 08/15/20 14:16 Review of Systems Review of Systems ROS: Yes All systems reviewed with the patient and are negative except as otherwise documented Exam Vital Signs (past 8 hours): - 08/15/20 13:52 Temperature 96.6 F L Pulse Rate 69 Respiratory Rate 16 Blood Pressure 159/76 H Pulse Oximetry 96 Oxygen Delivery Method Room Air Const General: cooperative, healthy appearing, comfortable and well developed Nutritional Appearance: obese HENMT Head: normocephalic and atraumatic Resp Effort & Inspection: normal respiratory effort and able to speak in complete sentences Auscultation: clear to auscultation bilaterally Cardio Rate: regular rate Rhythm: regular rhythm Heart Sounds: S1 normal and S2 normal GI Palpation: soft and No tender Extrem Right lower extremity: no edema Left lower extremity: no edema Objective Labs Labs: Laboratory Results - last 24 hr 08/15/20 13:02 COVID-19 PCR Negative Assessment & Plan Assessment & Plan narrative: 1. History of diverticulitis with E coli bacteremia Colonoscopy today, further recommendations to follow
[2020-08-15] MEDS: MIDAZOLAM 5 MG/5 ML VIAL IV (14:39)
[2020-08-15] MEDS: fentaNYL 250 MCG/5 ML INJ IV (14:39)
[2020-08-15 15:01] VITALS: BP 135/73; PULSE 66; RESP 16; TEMP 36.9; O2SAT 94
--- NOTE | 2020-08-15 15:01 | PM.OP.ENDO ---
Operative Date/Time/Diagnoses Date of procedure: 08/15/20 Time of procedure: 14:37 Procedure Notes Procedure in detail: Surgeon: Stephanie Rivera DO Procedure: Colonoscopy with biopsy Preoperative diagnosis: 1. History of diverticulitis June 2020 2. History of colon polyps Postoperative diagnosis: 1. Extensive sigmoid and descending diverticulosis 2. Area of inflammation in the distal sigmoid colon, biopsied 3. Grade 1 internal hemorrhoids Medications: Conscious sedation using 4 mg IV of Midazolam and 75 mcg IV of Fentanyl Preanesthesia Assessment An H and P was performed/updated and the Px?s ASA class is 3. The procedure was discussed in detail with the patient. The potential risks and complications including infection, bleeding, missed lesions, perforation, need for surgery in case of perforation, prolonged hospital stay, and were explained. A brief question and answer period was allotted and once all questions were answered, informed consent was obtained. His last dose of Xarelto was Thursday The patient was brought back to the procedure room and placed on standard monitoring. The patient?s vital signs were monitored continuously throughout the entire procedure. Prior to starting, a timeout was performed to confirm the patient?s identity, allergies, medications, and procedure. Procedure in detail The patient was placed in left lateral decubitus position and once adequate sedation was obtained a JUAN was performed. The digital rectal examination did not reveal any palpable lesions. The tip of the colonoscope was placed in the anal canal and advanced without difficulty all the way to the cecum which was identified by the appendiceal orifice and the ileocecal valve. Careful examination of all garza of the colon was performed with irrigation of any residual stool. Extensive diverticulosis in the sigmoid and descending colon, area of inflammation in the distal sigmoid colon was noted within the area of suspected granulation tissue. This was biopsied. One internal hemorrhoids were noted on retroflexion The patient tolerated the procedure well and will be brought back to the recovery area to be discharged once criteria are met. The prep was judged to be good/excellent and adequate to identify polyps less than 5 mm. The withdrawal time was 10. The total physician intraservice time was 17min. Complications There were no complications and estimated blood loss was minimal. Recommendations: Resume high-fiber diet Continue outPx medications, okay to start Xarelto tomorrow Follow up pathology results Repeat colonoscopy will be determined based on pathology results An emergency contact number was given to the patient for any complications related to the procedure
[2020-08-15 15:06] VITALS: BP 134/81; PULSE 64; RESP 18; O2SAT 94
[2020-08-15 15:11] VITALS: BP 137/74; PULSE 65; RESP 18; O2SAT 97
[2020-08-15 15:16] VITALS: BP 136/78; PULSE 63; RESP 20; TEMP 36.9; O2SAT 94
[2020-08-15 15:17] VITALS: BP 131/71; PULSE 63; RESP 18; O2SAT 96
== END 2020-08-15 15:45 | disposition home or self-care (01) ==
PROVIDERS: PCP Internal Medicine; Referring Provider Internal Medicine; Visit Provider Student in an Organized Health Care Education/Training Program
PROC: 0DJD8ZZ Inspection of Lower Intestinal Tract, Via Natural or Artificial Opening Endoscopic (ICD-10-PCS; CPT 45378; principal; 2020-08-15 14:00)
DX: K52.9 Noninfective gastroenteritis and colitis, unspecified (principal); Z79.01 Long term (current) use of anticoagulants; Z09 Encounter for follow-up examination after completed treatment for conditions other than malignant neoplasm; Z11.59 Encounter for screening for other viral diseases; K57.30 Diverticulosis of large intestine without perforation or abscess without bleeding; K64.0 First degree hemorrhoids
CPT/HCPCS: 45380; 87635; J2250; J3010

== ENCOUNTER 2020-08-20 15:02 | Emergency (ER) | payer MEDICARE, SELFPAY ==
[2020-06-21 10:21] VITALS: BMI 38.0
[2020-08-20] VITALS (18 sets, daily range): BP systolic 179–219; BP diastolic 84–102; PULSE 62–74; RESP 7–31; TEMP 36.7–36.9; O2SAT 93–99
[2020-08-20] MEDS: SODIUM CHLORIDE 0.9% 1,000 ML 150 ML IV (15:38)
[2020-08-20] MEDS: ONDANSETRON 4 MG/2 ML INJ IV ×2 (15:38→18:24)
[2020-08-20 15:43] LABS: Add Manual Diff / Slide Review NO; Basophils Absolute Auto 100 /uL (0-100); Basophils Percent Auto 0.7 % (0-2); Eosinophils Absolute Auto 0 /uL (0-450); Eosinophils Percent Auto 0.2 % (2-4); Hematocrit 40.4 % (41-53); Hemoglobin 13.6 g/dL (13.5-17.5); Lymphocytes Absolute Auto 400 /uL (1100-4500); Lymphocytes Percent Auto 5.5 % (25-40); Mean Corpuscular HGB Conc 33.7 % (30-36); Mean Corpuscular Hemoglobin 30.7 PG (26-34); Mean Corpuscular Volume 91.1 fL (80-100); Monocytes Absolute Auto 400 /uL (0-900); Monocytes Percent Auto 4.9 % (3-14); Neutrophils Absolute Auto 6700 /uL (1500-7000); Neutrophils Percent Auto 88.7 % (50-75); Platelet Count 185 X10^3/uL (150-400); Red Blood Cell Count 4.44 X10^6/uL (4.5-5.9); Red Cell Distribution Width 14.6 % (11.6-14.8); White Blood Cell Count 7.6 X10^3/uL (4.5-11.0)
[2020-08-20 15:45] LABS: Prothrombin Time 22.6 SECONDS (10.1-12.7)
[2020-08-20 15:48] LABS: Alanine Aminotransferase 24 IU/L (<50); Albumin 4.4 g/dL (3.5-5.0); Albumin Globulin Ratio 1.3 (1.0-2.8); Alkaline Phosphatase 86 U/L (38-126); Aspartate Aminotransferase 24 IU/L (17-59); BUN Creatinine Ratio 25.7 (6-22); Bilirubin Total 0.5 mg/dL (0.2-1.3); Blood Urea Nitrogen 28 mg/dL (9-20); Calcium 9.2 mg/dL (8.4-10.2); Carbon Dioxide 29 mmol/L (22-32); Chloride 101 mmol/L (98-107); Estimated Glomerular Filt Rate > 60.0 mL/min (>60); Globulin 3.5 g/dL (1.7-4.1); Glucose 198 mg/dL (80-110); HEMOLYSIS < 15 (0-50); Lipase 36 U/L (23-300); PTT Partial Thromboplastin Tim 36 SECONDS (26.4-36.2); Potassium 3.9 mmol/L (3.4-5.1); Sodium 138 mmol/L (137-145); Total Protein 7.9 g/dL (6.3-8.2)
--- NOTE | 2020-08-20 18:19 | ED_ITS ---
HPI - Nausea/Vomiting/Diarrhea General Chief complaint: Nausea/Vomiting/Diarrhea Stated complaint: BACK PAIN THROWING UP Time Seen by Provider: 08/20/20 17:57 Source: patient and family Mode of arrival: Wheelchair Limitations: no limitations History of Present Illness HPI Narrative: Patient is a 75-year-old male with a history of lower back pain who states that on Thursday of last week he had an increase in his left-sided lower back pain. He states that his continued over the weekend however today it seems to have improved somewhat. He denies any transmission of the pain down into his legs. No urinary symptoms. No changes bowel habits. Had a colonoscopy performed fairly recently. He went to his primary doctor today they were concerned about a potential bowel perforation. He was sent to the emergency department for evaluation. Related Data Home Medications Medication Instructions Recorded Confirmed magnesium oxide 1 tab PO Q DAY #0 07/31/16 08/15/20 metoprolol succinate [Toprol XL] 25 mg PO DAILY #0 07/31/16 08/15/20 amiodarone 200 mg tablet 100 mg PO QPM 04/18/19 08/15/20 liothyronine 5 mcg tablet 10 mcg PO DAILY tab 04/18/19 08/15/20 rivaroxaban 20 mg tablet 20 mg PO QPM 04/18/19 08/15/20 levothyroxine 75 mcg PO DAILY 01/12/20 08/15/20 metoprolol succinate 12.5 mg PO BEDTIME 01/12/20 08/15/20 triamterene-hydrochlorothiazid 1 cap PO DAILY 01/12/20 08/15/20 Previous Rx's Medication Instructions Recorded tamsulosin [Flomax] 0.8 mg PO 1730 #60 cap 10/14/16 lovastatin 40 mg PO Q DAY #90 tab 03/04/17 omeprazole 20 mg PO QDAY #90 cap 03/04/17 potassium chloride [Klor-Con M20] 20 meq PO AMCC #90 tab 05/27/17 enalapril maleate 5 mg PO QDAY #90 tab 08/03/17 blood sugar diagnostic #100 each 04/23/18 levofloxacin 750 mg PO DAILY #12 tab 06/22/20 metronidazole 500 mg PO TID #36 tab 06/22/20 amoxicillin-pot clavulanate 1 tab PO BID 10 Days #20 tab 08/20/20 [Augmentin] Allergies Allergy/AdvReac Type Severity Reaction Status Date / Time latex Allergy Verified 08/20/20 15:21 Review of Systems Constitutional Constitutional: Denies fever(s) and Denies headache(s) ENT Ears, Nose, Mouth, and Throat: Denies headache(s) Cardiovascular Cardiovascular: Denies chest pain and Denies dyspnea Respiratory Respiratory: Denies dyspnea Gastrointestinal Gastrointestinal: Denies change in bowel habits, Denies nausea and Denies vomiting Genitourinary Genitourinary: Denies dysuria Genitourinary: Denies dysuria Musculoskeletal Musculoskeletal: Reports back pain Integumentary/Breasts Skin/Breast: Denies lesions and Denies rash Neurologic Neurologic: Denies behavioral changes and Denies headache(s) Psychiatric Psychiatric: Denies behavioral changes Hematologic/Lymphatic Hematologic/Lymphatic: Denies easy bleeding and Denies easy bruising Allergic/Immunologic Allergic/Immunologic: Denies urticaria Patient History Medical History Asthma (Inactive 11/04/11) Atrial flutter (03/20/17) Benign prostatic hyperplasia (11/04/11) Body mass index (BMI) of 30.0 to 39.9 (10/27/11) Controlled type 2 diabetes mellitus (10/03/16) Diverticulosis of sigmoid colon (03/20/17) Essential hypertension (Inactive 10/27/11) Gastroesophageal reflux disease (03/01/14) Hyperlipidemia (Inactive 10/27/11) Malignant neoplasm of urinary bladder (10/11/16) Tubular adenoma of colon (03/20/17) Surgical History History of cardiac radiofrequency ablation (Acute) History of cystoscopy Family History Father CAD (coronary artery disease) Hyperlipidemia Hypertension Mother CAD (coronary artery disease) Hypertension Hyperlipidemia Social History household members: spouse Smoking Status: Never smoker alcohol intake: never Smoking Status: Never smoker alcohol intake frequency: 0-2 drinks per day Substance Use Type: does not use Exam Initial Vital Signs Initial Vital Signs: Vital Signs Temperature 98.4 F 08/20/20 15:10 Pulse Rate 68 08/20/20 15:10 Respiratory Rate 20 08/20/20 15:10 Blood Pressure 212/95 H 08/20/20 15:10 Pulse Oximetry 95 08/20/20 15:10 Const General: cooperative Limitations: mental status not altered HENIA Head: normal to inspection and normocephalic Resp Effort & Inspection: normal respiratory effort Auscultation: clear to auscultation bilaterally Cardio Rate: regular rate Rhythm: regular rhythm GI Inspection: non-distended Palpation: soft and No firm Back/Spine/Pelvis Thoracic/Lumbar Spine: paraspinal tenderness, No thoracic spinal tenderness and No lumbar spinal tenderness Skin Lesions: no lesions Rashes: no rashes Neuro General: patient alert, patient awake and patient oriented x3 Cognition: normal cognition Speech: speech normal Extrem General: normal to inspection and capillary refill normal Psych Appearance: grossly normal and well kempt Course Orders Ordered: ED Orders 08/20/20 15:09 EKG-12 Lead Stat 08/20/20 15:30 Complete Blood Count AUTO DIFF Stat Comprehensive Metabolic Panel Stat Lipase Stat Partial Thromboplastin Time Stat Prothrombin Time INR Stat 08/20/20 18:21 CT abdomen pelvis w con Stat Discontinued Medications Amoxicillin/Clavulanate Potassium (Augmentin 875-125 Mg) 1 tab PO NOW ONE Stop: 08/20/20 19:40 Last Admin: 08/20/20 20:07 Dose: 1 tab Documented by: CARA Sodium Chloride (Normal Saline 0.9%) 1,000 mls @ 150 mls/hr IV BOLUS ONE Stop: 08/20/20 21:57 Last Infusion: 08/20/20 20:39 Dose: 0 mls/hr Documented by: Admin: 08/20/20 15:38 Dose: 150 mls/hr Documented by: PERLA Metoclopramide HCl (Reglan) 10 mg IV NOW ONE Stop: 08/20/20 20:03 Last Admin: 08/20/20 20:07 Dose: 10 mg Documented by: CARA Ondansetron HCl (Zofran) 4 mg IV NOW ONE Stop: 08/20/20 15:10 Last Admin: 08/20/20 15:38 Dose: 4 mg Documented by: PERLA Ondansetron HCl (Zofran) 4 mg IV NOW ONE Stop: 08/20/20 18:21 Last Admin: 08/20/20 18:24 Dose: 4 mg Documented by: PERLA Vital Signs Vital signs: Vital Signs - 8 hr 08/20/20 16:22 08/20/20 16:30 08/20/20 16:44 Temperature Pulse Rate 66 62 67 Respiratory Rate 22 11 L 21 Blood Pressure 209/95 H Pulse Oximetry 97 95 97 08/20/20 16:45 08/20/20 17:00 08/20/20 17:22 Temperature Pulse Rate 68 67 70 Respiratory Rate 16 11 L 15 Blood Pressure 198/97 H 198/102 H 212/100 H Pulse Oximetry 98 97 97 08/20/20 17:30 08/20/20 17:45 08/20/20 18:00 Temperature Pulse Rate 69 69 67 Respiratory Rate 16 31 H 13 Blood Pressure 196/92 H 179/84 H 206/95 H Pulse Oximetry 96 93 96 08/20/20 18:15 08/20/20 18:30 08/20/20 18:45 Temperature Pulse Rate 71 71 72 Respiratory Rate 21 24 13 Blood Pressure 193/93 H 190/84 H 193/93 H Pulse Oximetry 98 97 96 08/20/20 19:09 08/20/20 19:12 08/20/20 19:15 Temperature Pulse Rate 74 71 71 Respiratory Rate 7 L 13 Blood Pressure 217/102 H 199/98 H Pulse Oximetry 95 99 99 08/20/20 20:25 Temperature 98.0 F Pulse Rate 72 Respiratory Rate 14 Blood Pressure 219/99 H Pulse Oximetry 99 MDM - Nausea/Vomiting/Diarrhea Medical Records Attestation: I reviewed the patient's medical records. Lab Data Attestation: I reviewed the patient's lab results. Result diagrams: 08/20/20 15:30 08/20/20 15:30 Labs: Lab Results 08/20/20 08/20/20 08/20/20 Range/Units 15:30 15:30 15:30 WBC 7.6 (4.5-11.0) X10^3/uL RBC 4.44 L (4.5-5.9) X10^6/uL Hgb 13.6 (13.5-17.5) g/dL Hct 40.4 L (41-53) % MCV 91.1 (80-100) fL MCH 30.7 (26-34) PG MCHC 33.7 (30-36) % RDW 14.6 (11.6-14.8) % Plt Count 185 (150-400) X10^3/uL Neut % (Auto) 88.7 H (50-75) % Lymph % (Auto) 5.5 L (25-40) % [place] % (Auto) 4.9 (3-14) % Eos % (Auto) 0.2 L (2-4) % Baso % (Auto) 0.7 (0-2) % Neut # (Auto) 6700 (4007-1160) /uL Lymph # (Auto) 400 L (2835-7150) /uL [place] # (Auto) 400 (0-900) /uL Eos # (Auto) 0 (0-450) /uL Baso # (Auto) 100 (0-100) /uL PT 22.6 H (10.1-12.7) SECONDS INR 2.0 H (0.9-1.3) APTT 36 D (26.4-36.2) SECONDS Sodium 138 (137-145) mmol/L Potassium 3.9 (3.4-5.1) mmol/L Chloride 101 (98-107) mmol/L Carbon Dioxide 29 (22-32) mmol/L BUN 28 H (9-20) mg/dL Creatinine 1.09 (0.66-1.25) mg/dL Estimated GFR > 60.0 (>60) mL/min BUN/Creatinine Ratio 25.7 H (6-22) Glucose 198 H (80-110) mg/dL Calcium 9.2 (8.4-10.2) mg/dL Total Bilirubin 0.5 (0.2-1.3) mg/dL AST 24 (17-59) IU/L ALT 24 (<50) IU/L Alkaline Phosphatase 86 (38-126) U/L Total Protein 7.9 (6.3-8.2) g/dL Albumin 4.4 (3.5-5.0) g/dL Globulin 3.5 (1.7-4.1) g/dL Albumin/Globulin Ratio 1.3 (1.0-2.8) Lipase 36 (23-300) U/L Imaging Data CT scan - abdomen/pelvis: Radiologist's Impression: [address] [address] [address] Scan Report Signed Patient: Leandro Allen [facility]#: [id number] : 3Acct:[id number] Age/Sex: 75 / MDate of Service: 08/20/20 Loc: ED Accession Number: [id number] Procedure: CT abdomen pelvis w con Ordering Provider: Ponce Olivo D.O. PROCEDURE: CT ABDOMEN PELVIS W CON INDICATIONS: ABD pain and back pain TECHNIQUE: After the administration of intravenous contrast, 5 mm thick sections acquired from the diaphragm to the symphysis. 5 mm coronal and sagittal reformats were acquired. For radiation dose reduction, the following was used: automated exposure control, a djustment of mA and/or kV according to patient size. COMPARISON: [facility], CT, ABDOMEN/PELVIS WITH CONTRAST, 06/12/2016, 2:49. FINDINGS: Image quality: Excellent. ABDOMEN: Lung bases: Lung bases are clear. Heart size is enlarged. There is calcification of the coronary vasculature. Solid organs: Liver is normal in size and enhancement. Gallbladder demonstrates a calculus within its lumen . Biliary system is non dilated. Pancreas enhances normally. Spleen is normal in size and enhancement. No adrenal nodules. Bilateral renal cysts. Kidneys demonstrate otherwise normal size and enhancement, without hydronephrosis. Peritoneum and bowel: Stomach and small bowel are within normal limits. Appendix is not seen. No evidence of appendicitis. Diverticulosis of the descending and sigmoid colon is present. There is moderate thickening of the mid/proximal sigmoid colon which demonstrates mild surrounding fat stranding No free fluid or air. Nodes and vessels: No retroperitoneal or mesenteric adenopathy by size criteria. Aorta and inferior vena cava are normal in size. Miscellaneous: No ventral hernias. PELVIS: Genitourinary: Bladder wall thickness is normal. Miscellaneous: No inguinal hernias or adenopathy. Bones: No suspicious bony lesions. No vertebral body compression fractures. Grade 1 isthmic spondylolisthesis at L5-S1. IMPRESSION: 1. Sigmoid diverticulitis. Follow-up colonoscopy is recommended to exclude underlying neoplasm. No pericolonic abscess. 2. Cholelithiasis without evidence of cholecystitis. 3. Cardiomegaly. Coronary artery disease. 4. Grade 1 isthmic spondylolisthesis at L5-S1. Dictated by: Giorgi Daniels M.D. on 08/20/2020 at 19:20 Approved by: Giorgi Daniels M.D. on 08/20/2020 at 19:22 ECG Data Attestation: I personally reviewed and interpreted this ECG as follows: Prior ECG tracings: not available for review Interpretation: Sinus rhythm Ventricular rate is 63 Left axis deviation Right bundle branch block No ST T wave changes MDM Narrative Medical decision making narrative: Patient has a very benign exam. His CT scan does show sigmoid diverticulitis. This could potentially be why he had an increase in his left-sided lower back pain. His nausea felt better after medications. Patient stated that he is not on any antibiotics. Given his age will put him on Augmentin. There is no signs of perforation on the CT scan. Patient was given return precautions and follow-up instructions. He expressed understanding and agreement. Discharge Plan Departure Patient Disposition: Home Clinical Impression: Diverticulitis Hypertension Qualifiers: Hypertension type: unspecified Qualified Code(s): I10 - Essential (primary) hypertension Discharge Date/Time: 08/20/20 21:01 Instructions: DI for Diverticulitis Activity Restrictions/Additional Instructions: The CT scan did show that you have diverticulitis. We do need to start you on antibiotics for this. Fill the prescription and start taking as directed. Contact your primary provider for follow-up. Return to the emergency department for any new or worsening symptoms Prescriptions: New amoxicillin-pot clavulanate [Augmentin] 875-125 mg tablet 1 tab PO BID 10 Days Qty: 20 RF: 0 No Action metoprolol succinate [Toprol XL] 25 MG tablet extended release 24 hr 25 mg PO DAILY Qty: 0 RF: 0 magnesium oxide 400 MG tablet 1 tab PO Q DAY Qty: 0 RF: 0 tamsulosin [Flomax] 0.4 MG capsule,extended release 24hr 0.8 mg PO 1730 Qty: 60 RF: 3 lovastatin 40 MG tablet 40 mg PO Q DAY Qty: 90 RF: 3 omeprazole 20 MG capsule,delayed release(DR/EC) 20 mg PO QDAY Qty: 90 RF: 3 potassium chloride [Klor-Con M20] 20 MEQ tablet,ER particles/crystals 20 meq PO AMCC Qty: 90 RF: 0 enalapril maleate 5 MG tablet 5 mg PO QDAY Qty: 90 RF: 1 (DME) blood sugar diagnostic [True Metrix Glucose Test Strip] strip See Dose Instructions .ROUTE .MEDSUPPLY Qty: 100 RF: 4 metoprolol succinate 25 mg Tablet Extended Release 24 Hr 12.5 mg PO BEDTIME RF: 0 levothyroxine 75 mcg Capsule 75 mcg PO DAILY RF: 0 triamterene-hydrochlorothiazid 37.5-25 mg capsule 1 cap PO DAILY RF: 0 metronidazole 500 mg Tablet 500 mg PO TID Qty: 36 RF: 0 levofloxacin 250 mg Tablet 750 mg PO DAILY Qty: 12 RF: 0 amiodarone 200 mg tablet 100 mg PO QPM RF: 0 liothyronine 5 mcg tablet 10 mcg PO DAILY RF: 0 Xarelto 20 mg tablet 20 mg PO QPM RF: 0 Referrals: Robbie Mccullough MD [Primary Care Provider] -
[2020-08-20] MEDS: METOCLOPRAMIDE 10 MG/2 ML INJ IV (20:07)
[2020-08-20] MEDS: AMOXICILLIN/CLAV 875/125 MG 1 TAB PO (20:07)
== END 2020-08-20 21:01 | disposition home or self-care (01) ==
PROVIDERS: Emergency Medicine; Emergency Provider Emergency Medicine; PCP Internal Medicine
DX: K57.92 Diverticulitis of intestine, part unspecified, without perforation or abscess without bleeding (principal); I10 Essential (primary) hypertension; R11.0 Nausea
CPT/HCPCS: 36415; 74177; 80053; 83690; 85025; 85610; 85730; 93005; 96361; 96374; 96375; 96376; 99284; J2405; J2765; Q9967

== ENCOUNTER 2020-10-19 16:26 | Inpatient (IN) | payer MEDICARE, SELFPAY ==
[2020-09-18 11:09] VITALS: BMI 38.0
[2020-10-19] VITALS (7 sets, daily range): BP systolic 90–137; BP diastolic 57–75; PULSE 64–88; RESP 16–32; TEMP 36.2–37.2; O2SAT 89–97; BMI 37.5
--- NOTE | 2020-10-19 16:49 | DI.RAD.S_ITS ---
PROCEDURE: XR CHEST 1V INDICATIONS: fever, chills, rigors TECHNIQUE: One view of the chest was acquired. COMPARISON: [facility], CT, CT CHEST ABD PEL W CON, 01/13/2020, 14:24. [facility], CR, XR CHEST 1V, 01/12/2020, 19:33. [facility], CR, XR CHEST 1V, 06/21/2020, 4:59. FINDINGS: Surgical changes and devices: Postoperative change of the right humeral head can be seen. Lungs and pleura: An incomplete inspiratory result is noted, causing a crowded appearance to the lung markings. No focal infiltrates are seen. No pneumothorax or significant pleural effusions are seen. Mediastinum: Mediastinal contours appear normal. Heart size is at the upper limits of normal. Bones and chest wall: No suspicious bony lesions. Age-appropriate bony degenerative changes are seen. Overlying soft tissues appear unremarkable. IMPRESSION: Limited portable chest examination, without a significant cardiopulmonary abnormality identified. If there is clinical concern for a developing pulmonary process, a short-term followup chest series (with PA and lateral views, performed in deep inspiration) is suggested for further evaluation. Dictated by: Newton Tanner M.D. on 10/19/2020 at 16:26 Approved by: Newton Tanner M.D. on 10/19/2020 at 16:27
--- NOTE | 2020-10-19 16:51 | ED_ITS ---
HPI - Weakness General Chief complaint: Weakness Stated complaint: shakes/not feeling well Time Seen by Provider: 10/19/20 16:27 Source: patient Mode of arrival: Family Vehicle Limitations: no limitations History of Present Illness HPI Narrative: 75-year-old male nonsmoker with history of AFib, diverticulitis, hypertension, prostatitis presents with his in the chief complaint of fever and shaking chills for the past few hours. He denies much in the way of specific complaints such as headache, runny nose or sore throat. He denies chest pain or shortness of breath but he is noted to have pulse ox in the upper 80s. 2 L by nasal cannula brings him back up to over 90%. He denies any chest pain. He denies abdominal pain or change in bowel habits such as constipation or diarrhea. He denies dysuria, frequency or urgency. He does state that he has had diverticulitis multiple times and it seemed to present this way, on very rapidly. He denies any known COVID exposure Onset (ago): hour(s) Location: generalized Relieving factors: none Exacerbating factors: none Associated symptoms: fever/chills Related Data Home Medications Medication Instructions Recorded Confirmed magnesium oxide 1 tab PO Q DAY #0 07/31/16 08/15/20 metoprolol succinate [Toprol XL] 25 mg PO DAILY #0 07/31/16 08/15/20 amiodarone 200 mg tablet 100 mg PO QPM 04/18/19 08/15/20 liothyronine 5 mcg tablet 10 mcg PO DAILY tab 04/18/19 08/15/20 rivaroxaban 20 mg tablet 20 mg PO QPM 04/18/19 08/15/20 levothyroxine 75 mcg PO DAILY 01/12/20 08/15/20 metoprolol succinate 12.5 mg PO BEDTIME 01/12/20 08/15/20 triamterene-hydrochlorothiazid 1 cap PO DAILY 01/12/20 08/15/20 Previous Rx's Medication Instructions Recorded tamsulosin [Flomax] 0.8 mg PO 1730 #60 cap 10/14/16 lovastatin 40 mg PO Q DAY #90 tab 03/04/17 omeprazole 20 mg PO QDAY #90 cap 03/04/17 potassium chloride [Klor-Con M20] 20 meq PO [facility] #90 tab 05/27/17 enalapril maleate 5 mg PO QDAY #90 tab 08/03/17 blood sugar diagnostic #100 each 04/23/18 levofloxacin 750 mg PO DAILY #12 tab 06/22/20 metronidazole 500 mg PO TID #36 tab 06/22/20 Allergies Allergy/AdvReac Type Severity Reaction Status Date / Time latex Allergy Verified 10/19/20 16:43 Review of Systems Constitutional Constitutional: Reports chills, Denies fatigue, Reports fever(s), Denies frequent falls, Denies lethargy and Denies weakness Eyes Eyes: Denies change in vision, Denies eye discharge, Denies irritation and Denies loss of vision ENT Ears, Nose, Mouth, and Throat: Denies change in voice, Denies dizziness, Denies neck pain, Denies sore throat and Denies throat swelling Cardiovascular Cardiovascular: Denies chest pain, Denies irregular heart rhythm, Denies lightheadedness, Denies palpitations, Denies dyspnea, Denies dyspnea on exertion and Denies orthopnea Respiratory Respiratory: Denies cough, Denies dyspnea, Denies dyspnea on exertion and Denies wheezing Gastrointestinal Gastrointestinal: Denies abdominal pain, Denies change in bowel habits, Denies diarrhea, Denies nausea and Denies vomiting Musculoskeletal Musculoskeletal: Denies neck pain and Denies numbness Integumentary/Breasts Skin/Breast: Denies pruritus, Denies erythema, Denies rash and Denies wounds Neurologic Neurologic: Denies behavioral changes, Denies confusion, Denies dizziness, Den ies frequent falls, Denies loss of vision, Denies numbness and Denies weakness Psychiatric Psychiatric: Denies anxiety, Denies behavioral changes, Denies confusion, Denies depression, Denies homicidal ideation and Denies suicidal ideation Endocrine Endocrine: Denies fatigue, Denies flushing and Denies palpitations Hematologic/Lymphatic Hematologic/Lymphatic: Denies easy bruising Allergic/Immunologic Allergic/Immunologic: Denies urticaria, Denies throat swelling and Denies wheezing Patient History Medical History (Updated 10/19/20 @ 19:43 by Jon Elliott DO) Asthma (11/04/11) Atrial flutter (03/20/17) Benign prostatic hyperplasia (11/04/11) Body mass index (BMI) of 30.0 to 39.9 (10/27/11) Controlled type 2 diabetes mellitus (10/03/16) Diverticulosis of sigmoid colon (03/20/17) Essential hypertension (10/27/11) Gastroesophageal reflux disease (03/01/14) Hyperlipidemia (10/27/11) Malignant neoplasm of urinary bladder (10/11/16) Tubular adenoma of colon (03/20/17) Surgical History (Updated 10/17/20 @ 13:43 by Danii Cash RN) History of appendectomy History of cardiac radiofrequency ablation History of cystoscopy Family History (Updated 10/17/20 @ 13:45 by Danii Cash RN) Father CAD (coronary artery disease) Hyperlipidemia Hypertension Hearing impairment Mother CAD (coronary artery disease) Hypertension Hyperlipidemia Cancer Social History (Updated 10/17/20 @ 13:46 by Danii Cash RN) marital status: household members: spouse occupational status: previously employed Smoking Status: Never smoker alcohol intake: never caffeine: Yes Smoking Status: Never smoker alcohol intake frequency: 0-2 drinks per day Substance Use Type: does not use Exam Narrative Exam Narrative: GENERAL: [75] year old patient appears stated age. 108kg/BMI 37.6 HEAD: Atraumatic. Normocephalic. EYES: Pupils equal round and reactive. Extraocular motions intact. No scleral icterus. No injection or drainage. ENT: Nose without bleeding, purulent drainage. Throat without erythema, tonsillar hypertrophy or exudate. Airway patent. NECK: Trachea midline. Non tender CARDIOVASCULAR: Regular rate and rhythm without murmurs, gallops, or rubs. RESPIRATORY: Decreased breath sounds through out, tachypnea, crackles in left base GASTROINTESTINAL: Abdomen soft, non-tender, nondistended. EXTREMITIES: No edema or joint tenderness. BACK: Nontender without deformity or crepitance. No flank tenderness. NEURO: AOx3. SKIN: No rash or erythema of visible areas Initial Vital Signs Initial Vital Signs: Vital Signs Temperature 99.0 F 10/19/20 16:39 Pulse Rate 84 10/19/20 16:39 Respiratory Rate 22 10/19/20 16:39 Blood Pressure 130/75 10/19/20 16:39 Pulse Oximetry 93 10/19/20 16:39 Course Course Course Narrative: 1930 - attempt to take patient off O2 and he quickly desaturates to the mid 80s. O2 replaced at 2L and he slowly rebounds to low 90s. Orders Ordered: ED Orders 10/19/20 12:05 Respiratory Panel (Film Array) Stat 10/19/20 16:49 XR chest 1V Stat 10/19/20 16:55 Blood Culture Stat 10/19/20 17:15 COVID19 Stat 10/19/20 17:20 Complete Blood Count AUTO DIFF Stat Comprehensive Metabolic Panel Stat Lactate (Lactic Acid) Stat Procalcitonin Stat 10/19/20 17:49 Urine Culture Stat Urine Microscopic Stat 10/19/20 17:58 CT chest abd pel w con Stat Levofloxacin (Levaquin) 750 mg in 150 mls @ 100 mls/hr IV NOW ONE Stop: 10/19/20 20:44 Last Admin: 10/19/20 19:23 Dose: 100 mls/hr Documented by: CHANDNI Vital Signs Vital signs: Vital Signs - 8 hr 10/19/20 16:39 10/19/20 17:18 10/19/20 17:32 Temperature 99.0 F Pulse Rate 84 88 Respiratory Rate 22 32 H 32 H Blood Pressure 130/75 Pulse Oximetry 93 89 L 97 MDM - Weakness Lab Data Result diagrams: 10/19/20 17:20 10/19/20 17:20 Labs: Lab Results 10/19/20 10/19/20 10/19/20 Range/Units 17:15 17:20 17:20 WBC 10.2 (4.5-11.0) X10^3/uL RBC 3.91 L (4.5-5.9) X10^6/uL Hgb 12.4 L (13.5-17.5) g/dL Hct 36.5 L (41-53) % MCV 93.2 (80-100) fL MCH 31.7 (26-34) PG MCHC 34.0 (30-36) % RDW 14.3 (11.6-14.8) % Plt Count 144 L (150-400) X10^3/uL Neut % (Auto) 89.9 H (50-75) % Lymph % (Auto) 3.5 L (25-40) % [place] % (Auto) 5.7 (3-14) % Eos % (Auto) 0.7 L (2-4) % Baso % (Auto) 0.2 (0-2) % Neut # (Auto) 9200 H (1894-2088) /uL Lymph # (Auto) 400 L (6324-7795) /uL [place] # (Auto) 600 (0-900) /uL Eos # (Auto) 100 (0-450) /uL Baso # (Auto) 0 (0-100) /uL Sodium (137-145) mmol/L Potassium (3.4-5.1) mmol/L Chloride (98-107) mmol/L Carbon Dioxide (22-32) mmol/L BUN (9-20) mg/dL Creatinine (0.66-1.25) mg/dL Estimated GFR (>60) mL/min BUN/Creatinine Ratio (6-22) Glucose (80-110) mg/dL Lactate (0.7-2.1) mmol/L Calcium (8.4-10.2) mg/dL Total Bilirubin (0.2-1.3) mg/dL AST (17-59) IU/L ALT (<50) IU/L Alkaline Phosphatase (38-126) U/L Total Protein (6.3-8.2) g/dL Albumin (3.5-5.0) g/dL Globulin (1.7-4.1) g/dL Albumin/Globulin Ratio (1.0-2.8) Procalcitonin 0.14 (<0.5) ng/mL Urine RBC (0-5/HPF) Urine WBC (0-5/HPF) Urine Bacteria (None) Ur Culture Indicated? SARS-CoV-2 (PCR) Negative (Negative) 10/19/20 10/19/20 10/19/20 Range/Units 17:20 17:20 17:49 WBC (4.5-11.0) X10^3/uL RBC (4.5-5.9) X10^6/uL Hgb (13.5-17.5) g/dL Hct (41-53) % MCV (80-100) fL MCH (26-34) PG MCHC (30-36) % RDW (11.6-14.8) % Plt Count (150-400) X10^3/uL Neut % (Auto) (50-75) % Lymph % (Auto) (25-40) % [place] % (Auto) (3-14) % Eos % (Auto) (2-4) % Baso % (Auto) (0-2) % Neut # (Auto) (3453-1690) /uL Lymph # (Auto) (4329-9413) /uL [place] # (Auto) (0-900) /uL Eos # (Auto) (0-450) /uL Baso # (Auto) (0-100) /uL Sodium 139 (137-145) mmol/L Potassium 3.9 (3.4-5.1) mmol/L Chloride 103 (98-107) mmol/L Carbon Dioxide 28 (22-32) mmol/L BUN 27 H (9-20) mg/dL Creatinine 1.54 H (0.66-1.25) mg/dL Estimated GFR 44.0 L (>60) mL/min BUN/Creatinine Ratio 17.5 (6-22) Glucose 128 H (80-110) mg/dL Lactate 1.7 (0.7-2.1) mmol/L Calcium 8.4 (8.4-10.2) mg/dL Total Bilirubin 0.4 (0.2-1.3) mg/dL AST 20 (17-59) IU/L ALT 17 (<50) IU/L Alkaline Phosphatase 82 (38-126) U/L Total Protein 7.1 (6.3-8.2) g/dL Albumin 4.0 (3.5-5.0) g/dL Globulin 3.1 (1.7-4.1) g/dL Albumin/Globulin Ratio 1.3 (1.0-2.8) Procalcitonin (<0.5) ng/mL Urine RBC 0-1/hpf (0-5/HPF) Urine WBC 1-5/hpf (0-5/HPF) Urine Bacteria Occasional (0-1) (None) Ur Culture Indicated? Specimen cultured SARS-CoV-2 (PCR) (Negative) Urine Dip Bedside Urine Glucose Negative Bedside Urine Bilirubin - Negative Bedside Urine Ketone - Negative Urine Specific [place] 1.030 Bedside Urine Occult Blood +/- Bedside Urine pH 6.0 Bedside Urine Protein - Negative Bedside Urine Urobilinogen - Negative Bedside Urine Nitrite - Negative Bedside Urine Leukocytes - Negative Esterase Discharge Plan Departure Patient Disposition: Admitted As Inpatient Clinical Impression: Hypoxia, Diverticulitis, Left lower lobe pneumonia Admit Date/Time: 10/19/20 19:34 Admit Provider: Toya Martel
[2020-10-19 17:30] LABS: Add Manual Diff / Slide Review NO; Basophils Absolute Auto 0 /uL (0-100); Basophils Percent Auto 0.2 % (0-2); Eosinophils Absolute Auto 100 /uL (0-450); Eosinophils Percent Auto 0.7 % (2-4); Hematocrit 36.5 % (41-53); Hemoglobin 12.4 g/dL (13.5-17.5); Lymphocytes Absolute Auto 400 /uL (1100-4500); Lymphocytes Percent Auto 3.5 % (25-40); Mean Corpuscular Hemoglobin 31.7 PG (26-34); Mean Corpuscular Volume 93.2 fL (80-100); Monocytes Absolute Auto 600 /uL (0-900); Monocytes Percent Auto 5.7 % (3-14); Neutrophils Absolute Auto 9200 /uL (1500-7000); Neutrophils Percent Auto 89.9 % (50-75); Platelet Count 144 X10^3/uL (150-400); Red Blood Cell Count 3.91 X10^6/uL (4.5-5.9); Red Cell Distribution Width 14.3 % (11.6-14.8); White Blood Cell Count 10.2 X10^3/uL (4.5-11.0)
[2020-10-19 17:41] LABS: Lactate (Lactic Acid) 1.7 mmol/L (0.7-2.1)
[2020-10-19 17:42] LABS: Alanine Aminotransferase 17 IU/L (<50); Albumin Globulin Ratio 1.3 (1.0-2.8); Alkaline Phosphatase 82 U/L (38-126); Aspartate Aminotransferase 20 IU/L (17-59); BUN Creatinine Ratio 17.5 (6-22); Bilirubin Total 0.4 mg/dL (0.2-1.3); Blood Urea Nitrogen 27 mg/dL (9-20); Calcium 8.4 mg/dL (8.4-10.2); Carbon Dioxide 28 mmol/L (22-32); Chloride 103 mmol/L (98-107); Globulin 3.1 g/dL (1.7-4.1); Glucose 128 mg/dL (80-110); HEMOLYSIS < 15 (0-50); Potassium 3.9 mmol/L (3.4-5.1); Sodium 139 mmol/L (137-145); Total Protein 7.1 g/dL (6.3-8.2)
[2020-10-19 17:47] LABS: COVID19 -Nasal RAPID Negative (Negative)
[2020-10-19 17:57] LABS: Procalcitonin 0.14 ng/mL (<0.5)
--- NOTE | 2020-10-19 17:58 | DI.CT.S_ITS ---
PROCEDURE: CT CHEST ABD PEL W CON INDICATIONS: SOB, hypoxia, fever, chills TECHNIQUE: After the administration of intravenous contrast, 5 mm thick sections acquired from the lung apices to the symphysis. 5 mm coronal and sagittal reformats were performed, with additional 7 mm MIP reformats through the lungs. For radiation dose reduction, the following was used: automated exposure control, adjustment of mA and/or kV according to patient size. COMPARISON: [facility], CT, CT CHEST ABD PEL W CON, 06/21/2020, 5:50. [facility], CT, CT CHEST ABD PEL W CON, 01/13/2020, 14:24. [facility], CT, CT ABDOMEN PELVIS W CON, 08/20/2020, 18:57. [facility], CR, XR CHEST 1V, 10/19/2020, 17:00. FINDINGS: Image quality: Excellent. CHEST: Lungs and pleura: Left basilar infiltrates suspicious for pneumonia. Bibasilar dependent atelectasis.. No pleural effusions or pneumothorax. Central and peripheral airways appear patent and normal in caliber. Mediastinum: Heart size is mildly increased. There is moderate coronary artery calcification. No pericardial effusion. No mediastinal or hilar adenopathy by size criteria. Thoracic aorta and central pulmonary arteries are normal in size. Esophagus is normal in caliber. No hiatal hernia. Chest wall: No axillary or supraclavicular adenopathy by size criteria. Thyroid gland is normal. ABDOMEN: Solid organs: Liver is normal in size and enhancement. Gallbladder contains calcified gallstones. Biliary system is non dilated. Pancreas enhances normally. Spleen is normal in size and enhancement. No adrenal nodules. Kidneys demonstrate normal size and enhancement, without hydronephrosis. There are bilateral renal cysts. Peritoneum and bowel: Bowel loops demonstrate normal wall thickness and caliber. Extensive colonic diverticulosis. There is mild focal thickening in sigmoid colon, suggesting mild diverticulitis. No free fluid or air. Nodes and vessels: No retroperitoneal or mesenteric adenopathy by size criteria. Aorta and inferior vena cava are normal in size. Dnoxmdti-[id number] atherosclerosis. Miscellaneous: No ventral hernias. PELVIS: Genitourinary: Bladder wall thickness is normal. Prostate is enlarged. Miscellaneous: No inguinal adenopathy. Small inguinal hernias bilaterally. Bones: No suspicious bony lesions. No vertebral body compression fractures. There is grade 1-2 anterolisthesis of L5 on S1 secondary to L5 pars defects. IMPRESSION: 1. Left lower lobe infiltrates suspicious for pneumonia. 2. Extensive diverticulosis. Mild focal thickening in sigmoid colon suggesting mild diverticulitis. Recommend follow-up colonoscopy after adequate treatment to rule out colonic mass. 3. Cholelithiasis. No CT findings to suggest acute cholecystitis. 4. Mild cardiomegaly. 5. Enlarged prostate. 6. Bilateral renal cysts Dictated by: Dustin Fletcher M.D. on 10/19/2020 at 18:55 Approved by: Dustin Fletcher M.D. on 10/19/2020 at 19:02
[2020-10-19 18:04] LABS: Bacteria Urine Occasional (0-1); Culture Indicated Urine Specimen Cultured; RBC Urine 0-1/HPF (0-5/HPF); WBC Urine 1-5/HPF (0-5/HPF)
[2020-10-19] MEDS: levoFLOXacin 750 MG/150 ML PIGGYBACK 100 MG IV (19:23)
--- NOTE | 2020-10-19 19:33 | PC.NURSE ---
Pt given phone to call to bring in personal CPap machine.
[2020-10-19 20:05] LABS: Adenovirus Not Detected (Not Detect); Coronavirus 229E Not Detected (Not Detect); Coronavirus HKU1 Not Detected (Not Detect); Coronavirus NL 63 Not Detected (Not Detect); Coronavirus OC43 Not Detected (Not Detect); Human Metapneumovirus Not Detected (Not Detect); SARS- CoV-2 Not Detected (Not Detecte)
[2020-10-19 20:06] LABS: Bordetella pertussis Not Detected (Not Detect); Chlamydophila pneumoniae Not Detected (Not Detect); Human Rhinovirus/Enterovirus Not Detected (Not Detect); Influenza A Not Detected (Not Detect); Influenza B Not Detected (Not Detect); Mycoplasma pneumoniae Not Detected (Not Detect); Parainfluenza Virus 1 Not Detected (Not Detect); Parainfluenza Virus 2 Not Detected (Not Detect); Parainfluenza Virus 3 Not Detected (Not Detect); Parainfluenza Virus 4 Not Detected (Not Detect); Respiratory Syncytial Virus Not Detected (Not Detect)
[2020-10-19] MEDS: SODIUM CHLORIDE 0.9% 1,000 ML 60 ML IV (22:30)
[2020-10-20] VITALS (8 sets, daily range): BP systolic 116–140; BP diastolic 62–71; PULSE 60–64; RESP 16–18; TEMP 36.2–36.4; O2SAT 94–99
--- NOTE | 2020-10-20 06:19 | PM.HP.1 ---
History of Present Illness History of Present Illness Date Patient Seen: 10/19/20 Time Patient Seen: 22:40 Chief complaint: shakes/not feeling well Narrative: 75-year-old male Leandro Allen presents with his in the chief complaint of fever and shaking chills for the past few hours. He denies much in the way of specific complaints such as headache, runny nose or sore throat. He denies chest pain or shortness of breath but he is noted to have pulse ox in the upper 80s. 2 L by nasal cannula brings him back up to over 90%. He denies any chest pain. He denies abdominal pain or change in bowel habits such as constipation or diarrhea. He denies dysuria, frequency or urgency. He does state that he has had diverticulitis multiple times and it seemed to present this way, on very rapidly. He denies any known COVID exposure. Pt is a nonsmoker with a history of AFib, diverticulitis, hypertension, prostatitis, BPH, diabetes type 2, GERD, hyper lipid, malignant neoplasms of the bladder, and tubular adenoma of colon. When patient was admitted to the floor he said he was much improved and his fever and chills had resolved, patient was wearing a CPAP machine and denied any further symptoms at this time. Patient presented to the emergency department with a temp of 98.1?, BP 113/65, HR 82, RR 16, SaO2 94%, hemoglobin 12.4 hematocrit 36.5, platelets 144, estimated GFR 44, BUN 27, creatinine 1.54, and glucose 128, chest abdomen pelvis CT was negative for PE the demonstrated Left lower lobe infiltrates suspicious for pneumonia, Extensive diverticulosis, Mild focal thickening in sigmoid colon suggesting mild diverticulitis, CXR recommends PA and lateral two view repeat chest x-ray. Patient was admitted for left lower lobe pneumonia, hypoxia, diverticulitis. Patient History Medical History Asthma (11/04/11) Atrial flutter (03/20/17) Benign prostatic hyperplasia (11/04/11) Body mass index (BMI) of 30.0 to 39.9 (10/27/11) Controlled type 2 diabetes mellitus (10/03/16) Diverticulosis of sigmoid colon (03/20/17) Essential hypertension (10/27/11) Gastroesophageal reflux disease (03/01/14) Hyperlipidemia (10/27/11) Malignant neoplasm of urinary bladder (10/11/16) Tubular adenoma of colon (03/20/17) Surgical History History of appendectomy History of cardiac radiofrequency ablation History of cystoscopy Family & Social History Family History Father CAD (coronary artery disease) Hyperlipidemia Hypertension Hearing impairment Mother CAD (coronary artery disease) Hypertension Hyperlipidemia Cancer Social History: household members spouse Prior Living Arrangements House Safety & Behavioral: Feels Safe in Current Yes Environment Been Physically Hurt or No Threatened By a Person Suicidal Ideation Description None Suicide Plan Description No Plan Tobacco & Substance use: Smoking Status Never smoker alcohol intake never alcohol intake frequency 0-2 drinks per day Substance Use Type does not use Meds Home Medications and Allergies Home Medications Medication Instructions Recorded Confirmed Type magnesium oxide 1 tab PO Q DAY #0 07/31/16 10/19/20 History metoprolol succinate [Toprol XL] 25 mg PO DAILY #0 07/31/16 10/19/20 History lovastatin 40 mg PO Q DAY #90 tab 03/04/17 10/19/20 Rx omeprazole 20 mg PO QDAY #90 cap 03/04/17 10/19/20 Rx potassium chloride [Klor-Con M20] 20 meq PO [facility] #90 tab 05/27/17 10/19/20 Rx enalapril maleate 5 mg PO QDAY #90 tab 08/03/17 10/19/20 Rx blood sugar diagnostic #100 each 04/23/18 10/19/20 Rx amiodarone 200 mg tablet 100 mg PO QPM 04/18/19 10/19/20 History liothyronine 5 mcg tablet 10 mcg PO DAILY tab 04/18/19 10/19/20 History rivaroxaban 20 mg tablet 20 mg PO QPM 04/18/19 10/19/20 History levothyroxine 75 mcg PO DAILY 01/12/20 10/19/20 History metoprolol succinate 12.5 mg PO BEDTIME 01/12/20 10/19/20 History triamterene-hydrochlorothiazid 1 cap PO DAILY 01/12/20 10/19/20 History tamsulosin [Flomax] 0.8 mg PO QPM 10/19/20 10/19/20 History Allergies Allergy/AdvReac Type Severity Reaction Status Date / Time latex Allergy Verified 10/19/20 16:43 Review of Systems Review of Systems ROS: Yes All systems reviewed with the patient and are negative except as otherwise documented Exam Vital Signs (past 8 hours): - 10/19/20 22:56 10/19/20 23:45 10/20/20 00:25 Temperature 97.2 F L Pulse Rate 64 Respiratory Rate 16 Blood Pressure 90/57 L Pulse Oximetry 94 97 97 10/20/20 01:07 10/20/20 04:51 Temperature 97.2 F L Pulse Rate 60 64 Respiratory Rate 16 16 Blood Pressure 116/63 123/64 Pulse Oximetry 98 96 Oxygen Delivery Method Room Air,CPAP Oxygen Flow Rate 0 Narrative Exam Narrative: General: Patient is a obese male well-developed, well-nourished in no distress at this time. HEENT: Normocephalic, atraumatic, extraocular muscles intact, oral pharynx is clear and mucous membranes are moist. Neck is supple and symmetric, trachea is midline, no adenopathy, no thyroid enlargement, nontender, no masses palpated. Negative for JVD Chest: Normal AP diameter and contour without kyphoscoliosis, no nasal flaring, retractions, or tachypneic labored Lungs: Auscultation of all lung puckett demonstrated gross expiratory wheezing in bilateral lower lobes, left lobe had marked decrease lung sounds and greater wheezing. Cardio: S1 & S2 with regular rate and rhythm without murmur, rubs, or gallops, no carotid bruit, no cardiac pulsations present. Abdomen: Soft nontender, negative for organomegaly, or masses. Bowel sounds are present in all 4 quadrants without guarding or rebound, no CVA tenderness. Musculoskeletal: Muscle strength and tone are equal within normal limits, no deformity, Garrett crepitus, effusions, cyanosis, clubbing or edema present. Full range of motion intact radial and pedal pulses are normal. Skin: Warm dry and intact without rashes, ulcerations or petechiae. Neuro: Alert and orientated x3, strength is +5/5 in all extremities, sensation to touch intact, no gross deficits noted of cranial nerves. Psych: Patient has a well-kept appearance, appropriate affect, mental status attitude thought context and judgment are appropriate for age. Objective Labs Result Diagrams: 10/19/20 17:20 10/19/20 17:20 Labs: Laboratory Results - last 24 hr 10/19/20 10/19/20 10/19/20 12:05 17:15 17:20 WBC 10.2 RBC 3.91 L Hgb 12.4 L Hct 36.5 L MCV 93.2 MCH 31.7 MCHC 34.0 RDW 14.3 Plt Count 144 L Neut % (Auto) 89.9 H Lymph % (Auto) 3.5 L [place] % (Auto) 5.7 Eos % (Auto) 0.7 L Baso % (Auto) 0.2 Neut # (Auto) 9200 H Lymph # (Auto) 400 L [place] # (Auto) 600 Eos # (Auto) 100 Baso # (Auto) 0 Sodium Potassium Chloride Carbon Dioxide BUN Creatinine Estimated GFR BUN/Creatinine Ratio Glucose Lactate Calcium Total Bilirubin AST ALT Alkaline Phosphatase Total Protein Albumin Globulin Albumin/Globulin Ratio Procalcitonin Urine RBC Urine WBC Urine Bacteria Ur Culture Indicated? Chlamy pneumoniae PCR Not detected Adenovirus (PCR) Not detected B.parapertussis DNA PCR Not detected Coronavirus OC43 (PCR) Not detected Coronavirus HKU1 (PCR) Not detected Coronavirus 229E (PCR) Not detected SARS-CoV-2 (PCR) Not detected Negative Coronavirus NL63 (PCR) Not detected Human Metapneumovir PCR Not detected Influenza Type A (PCR) Not detected Influenza Type B (PCR) Not detected M. pneumoniae (PCR) Not detected Parainfluenza 1 (PCR) Not detected Parainfluenza 2 (PCR) Not detected Parainfluenza 3 (PCR) Not detected Parainfluenza 4 (PCR) Not detected RSV (PCR) Not detected Entero/Rhino (PCR) Not detected 10/19/20 10/19/20 10/19/20 17:20 17:20 17:20 WBC RBC Hgb Hct MCV MCH MCHC RDW Plt Count Neut % (Auto) Lymph % (Auto) [place] % (Auto) Eos % (Auto) Baso % (Auto) Neut # (Auto) Lymph # (Auto) [place] # (Auto) Eos # (Auto) Baso # (Auto) Sodium 139 Potassium 3.9 Chloride 103 Carbon Dioxide 28 BUN 27 H Creatinine 1.54 H Estimated GFR 44.0 L BUN/Creatinine Ratio 17.5 Glucose 128 H Lactate 1.7 Calcium 8.4 Total Bilirubin 0.4 AST 20 ALT 17 Alkaline Phosphatase 82 Total Protein 7.1 Albumin 4.0 Globulin 3.1 Albumin/Globulin Ratio 1.3 Procalcitonin 0.14 Urine RBC Urine WBC Urine Bacteria Ur Culture Indicated? Chlamy pneumoniae PCR Adenovirus (PCR) B.parapertussis DNA PCR Coronavirus OC43 (PCR) Coronavirus HKU1 (PCR) Coronavirus 229E (PCR) SARS-CoV-2 (PCR) Coronavirus NL63 (PCR) Human Metapneumovir PCR Influenza Type A (PCR) Influenza Type B (PCR) M. pneumoniae (PCR) Parainfluenza 1 (PCR) Parainfluenza 2 (PCR) Parainfluenza 3 (PCR) Parainfluenza 4 (PCR) RSV (PCR) Entero/Rhino (PCR) 10/19/20 17:49 WBC RBC Hgb Hct MCV MCH MCHC RDW Plt Count Neut % (Auto) Lymph % (Auto) Plumas % (Auto) Eos % (Auto) Baso % (Auto) Neut # (Auto) Lymph # (Auto) [place] # (Auto) Eos # (Auto) Baso # (Auto) Sodium Potassium Chloride Carbon Dioxide BUN Creatinine Estimated GFR BUN/Creatinine Ratio Glucose Lactate Calcium Total Bilirubin AST ALT Alkaline Phosphatase Total Protein Albumin Globulin Albumin/Globulin Ratio Procalcitonin Urine RBC 0-1/hpf Urine WBC 1-5/hpf Urine Bacteria Occasional (0-1) Ur Culture Indicated? Specimen cultured Chlamy pneumoniae PCR Adenovirus (PCR) B.parapertussis DNA PCR Coronavirus OC43 (PCR) Coronavirus HKU1 (PCR) Coronavirus 229E (PCR) SARS-CoV-2 (PCR) Coronavirus NL63 (PCR) Human Metapneumovir PCR Influenza Type A (PCR) Influenza Type B (PCR) M. pneumoniae (PCR) Parainfluenza 1 (PCR) Parainfluenza 2 (PCR) Parainfluenza 3 (PCR) Parainfluenza 4 (PCR) RSV (PCR) Entero/Rhino (PCR) Assessment & Plan Assessment & Plan narrative: Leandro Allen is a 74-year-old male with a past medical history significant for hypertension, hyperlipidemia, paroxysmal atrial fibrillation/flutter status post ablation and on Xarelto, diabetes mellitus type 2, non-insulin using and diet controlled, COPD/asthma, obstructive sleep apnea on CPAP, GERD, and bladder tumor status post resection who presented with a fever and chills, CT demonstrated left lower lobe infiltrate suspicious for pneumonia, extensive diverticulosis, and mild suggestions of diverticulitis. Started Levaquin 750 mg q.day pending further evaluation with UA. 1.Pneumonia lower left lobe, hypoxia, acute, present on admission -possible diverticulitis flare-will continue to monitor patient -Chest abdomen pelvis CT was negative for PE the demonstrated Left lower lobe infiltrates suspicious for pneumonia, Extensive diverticulosis, Mild focal thickening in sigmoid colon suggesting mild diverticulitis. Recommend follow-up colonoscopy after adequate treatment to rule out colonic mass. Cholelithiasis. No CT findings to suggest acute cholecystitis. Mild cardiomegaly.Enlarged prostate. Bilateral renal cysts CXR:Limited portable chest examination, without a significant cardiopulmonary abnormality identified. If there is clinical concern for a developing pulmonary process, a short-term followup chest series (with PA and lateral views, performed in deep inspiration) is suggested for further evaluation. - Patient presented to the emergency department with a temp of 98.1?, BP 113/65, HR 82, RR 16, SaO2 94%, hemoglobin 12.4 hematocrit 36.5, platelets 144, estimated GFR 44, BUN 27, creatinine 1.54, and glucose 128, - check a UA, does have a history of UTI - respiratory panel was negative -monitor patient, placed on tele, vital signs q.4 hours, I&O Q shift, weight daily, diet heart healthy, maintain O2 saturation above 92%, order ABGs if patient becomes hypoxemic, IV fluids: Gentle rehydration with normal saline 60 cc/hour -a.m. Labs ordered A1c, lactic acid, BNP, proBNP, TSH 2.Chronic obstructive pulmonary disease and restrictive lung disease, present on admission. Stable. -Does not represent COPD exacerbation. -PFTs on 04/19/2019 demonstrated mild COPD and restrictive disease with decreased diffusion capacity. -Continue respiratory therapy for evaluation and treatment. Continue Albuterol MDI inhaler with spacer 2 puffs every 4 hours as needed. -continue CPAP Diabetes mellitus type 2, non-insulin using and diet-controlled, present on admission. Stable. -Hemoglobin A1c 6.4% previously indicative of good control. -Patient is under the care of a canvas marker in [place] on [facility]. He is on no diabetic medications and uses various herbal supplements that he cannot recall. Chronic kidney disease stage 3, present on admission. -Initial creatinine 1.54, baseline has dropped from 1.5 noted during prior admission to as low as 1.09 on recent labs. -continue to follow. Given IVF in the Er. Chronic atrial fibrillation/flutter status post ablation, present on admission. Stable. -The patient denies complaints of chest pain or palpitations. -Continue rhythm control with amiodarone 200 mg daily, rate control with metoprolol succinate 25 mg daily in the morning and 12.5 mg daily at bedtime and anticoagulation with Xarelto 20 mg daily. Hypertension, chronic, present on admission. Stable. -Blood pressure is adequately controlled with initial BP 130/75 upon arrival to the ED. -Continue home enalapril 5 mg daily metoprolol succinate 25 mg daily in the morning and 12.5 mg daily at bedtime and triamterene/hydrochlorothiazide 37.5/25 mg daily. Hyperlipidemia, chronic, present on admission. Stable. -Continue home lovastatin 40 mg daily. Hypothyroidism, chronic, present on admission. Stable. -TSH ordered. -Continue levothyroxine 75 mcg daily and liothyronine 10 mcg daily. BPH, chronic, present on admission. Stable. -Continue tamsulosin 0.8 mg daily . GERD, chronic, present on admission. Stable. -Continue home PPI with Protonix 20 mg daily. Obstructive sleep apnea on CPAP, chronic, present on admission. Stable. -Continue home CPAP per RT protocol. Code status: FULL CODE Surrogate: Loli card spouse Prophylaxis: Contraindicated, SCDs and patient is taking Xarelto COVID PCR: Negative
[2020-10-20] MEDS: LEVOTHYROXINE 75 MCG TABLET PO (06:22)
[2020-10-20 07:00] LABS: Add Manual Diff / Slide Review NO; Basophils Absolute Auto 0 /uL (0-100); Basophils Percent Auto 0.5 % (0-2); Eosinophils Absolute Auto 100 /uL (0-450); Eosinophils Percent Auto 1.2 % (2-4); Hematocrit 34.3 % (41-53); Hemoglobin 11.6 g/dL (13.5-17.5); Lymphocytes Absolute Auto 500 /uL (1100-4500); Lymphocytes Percent Auto 5.1 % (25-40); Mean Corpuscular HGB Conc 33.8 % (30-36); Mean Corpuscular Hemoglobin 31.5 PG (26-34); Mean Corpuscular Volume 93.4 fL (80-100); Monocytes Absolute Auto 800 /uL (0-900); Monocytes Percent Auto 8.4 % (3-14); Neutrophils Absolute Auto 7700 /uL (1500-7000); Neutrophils Percent Auto 84.8 % (50-75); Platelet Count 143 X10^3/uL (150-400); Red Blood Cell Count 3.67 X10^6/uL (4.5-5.9); Red Cell Distribution Width 14.6 % (11.6-14.8); White Blood Cell Count 9.1 X10^3/uL (4.5-11.0)
[2020-10-20 07:06] LABS: Alanine Aminotransferase 16 IU/L (<50); Albumin 3.5 g/dL (3.5-5.0); Albumin Globulin Ratio 1.1 (1.0-2.8); Alkaline Phosphatase 74 U/L (38-126); Aspartate Aminotransferase 20 IU/L (17-59); Bilirubin Total 0.6 mg/dL (0.2-1.3); Blood Urea Nitrogen 24 mg/dL (9-20); Calcium 8.4 mg/dL (8.4-10.2); Carbon Dioxide 31 mmol/L (22-32); Chloride 102 mmol/L (98-107); Estimated Glomerular Filt Rate 48.7 mL/min (>60); Globulin 3.2 g/dL (1.7-4.1); Glucose 110 mg/dL (80-110); HEMOLYSIS < 15 (0-50); Potassium 4.2 mmol/L (3.4-5.1); Sodium 136 mmol/L (137-145); Total Protein 6.7 g/dL (6.3-8.2)
[2020-10-20 07:14] LABS: NT-proBNP (BNP-Adult 18+) 1020 pg/mL (<450)
[2020-10-20 07:21] LABS: Hemoglobin A1C% w Est Avg Glu 6.3 % (4.0-6.0)
[2020-10-20] MEDS: LIOTHYRONINE 5 MCG TABLET 10 MCG PO (08:11)
[2020-10-20 08:12] LABS: TSH w/ Reflex to FT4 1.25 uIU/mL (0.47-4.68)
[2020-10-20] MEDS: levoFLOXacin 250 MG TABLET 750 MG PO (10:19)
[2020-10-20] MEDS: METOPROLOL ER 25 MG TABLET PO (10:20)
[2020-10-20] MEDS: MAGNESIUM OXIDE 400 MG TABLET PO (10:20)
[2020-10-20] MEDS: TRIAMTERENE/HCTZ 37.5/25 TABLET 1 CAP PO (10:20)
[2020-10-20] MEDS: PANTOPRAZOLE 20 MG TABLET PO (10:20)
[2020-10-20] MEDS: ENALAPRIL 5 MG TABLET PO (10:23)
--- NOTE | 2020-10-20 11:58 | CM.DANOTE ---
DCP: Case received, EMR reviewed and met with patient. Introduced self and role. Was able to obtain information from patient regarding his baseline activity level prior to hospitalization. DCP assessment completed with information currently available. Patient is a 75 year old male who admitted yesterday evening to the care of the hospitalist team. PCP: Dr. Mccullough. Payer: confirmed: Medicare/[employer]. Patient came to the hospital via private vehicle secondary to having fever, tremors. He was noted to have decreased oxygen levels, but was sustained at 90% on 2 liters of oxygen. He has history of a-fib, as well as diverticulitis. He does hold diagnosis of lower lobe pneumonia. Met with patient in his room. He was sitting up in his chair. Stated, I'm feeling better, I really want to go home, it's most likely my diverticulitis. Patient denied any shortness of breath. Confirmed with patient that he resides in [place] with his , Loli. He is independent at baseline. He is not on home oxygen. P: DCP to continue to follow and be available for resources. Patient should be able to go home when stable and no longer needs oxygen. Janeen Ashton RN/Communications Clerk.
--- NOTE | 2020-10-20 12:00 | OT.IPNOTE ---
OT eval order received. Discussed with P.T., nursing and Pt. No OT needs at this time. Will discharge order.
--- NOTE | 2020-10-20 12:57 | P.DS_ITS ---
History of Present Illness History of Present Illness Chief complaint: shakes/not feeling well Narrative: 75-year-old male Leandro Allen presents with his in the chief complaint of fever and shaking chills for the past few hours. He denies much in the way of specific complaints such as headache, runny nose or sore throat. He denies chest pain or shortness of breath but he is noted to have pulse ox in the upper 80s. 2 L by nasal cannula brings him back up to over 90%. He denies any chest pain. He denies abdominal pain or change in bowel habits such as constipation or diarrhea. He denies dysuria, frequency or urgency. He does state that he has had diverticulitis multiple times and it seemed to present this way, on very rapidly. He denies any known COVID exposure. Pt is a nonsmoker with a history of AFib, diverticulitis, hypertension, prostatitis, BPH, diabetes type 2, GERD, hyper lipid, malignant neoplasms of the bladder, and tubular adenoma of colon. When patient was admitted to the floor he said he was much improved and his fever and chills had resolved, patient was wearing a CPAP machine and denied any further symptoms at this time. Patient presented to the emergency department with a temp of 98.1?, BP 113/65, HR 82, RR 16, SaO2 94%, hemoglobin 12.4 hematocrit 36.5, platelets 144, estimated GFR 44, BUN 27, creatinine 1.54, and glucose 128, chest abdomen pelvis CT was negative for PE the demonstrated Left lower lobe infiltrates suspicious for pneumonia, Extensive diverticulosis, Mild focal thickening in sigmoid colon suggesting mild diverticulitis, CXR recommends PA and lateral two view repeat chest x-ray. Patient was admitted for left lower lobe pneumonia, hypoxia, diverticulitis. Discharge Providers Provider Date of admission: 10/19/20 19:34 Discharge Date: 10/20/20 Primary care physician: Robbie Mccullough MD Consults: 10/19/20 22:27 Consult to Dietitian, Adult Routine Comment: Reason For Exam: Obsesity Consult to Discharge Planning Routine Comment: Consult to Occupational Therapy Evaluate & Treat Comment: Physician Instructions: Evaluate and treat Consult to Physical Therapy Evaluate & Treat Comment: Physician Instructions: Evaluate and Treat Discharge provider: Amara Black MD Summary Hospital Course Discharge Diagnosis: 1. Acute diverticulitis 2. Hyperlipidemia 3. Hypothyroid 4. Hypertension 5. GERD 6. Atrial fibrillation 7. Acute renal failure, present on admission, now improved Hospital Course: Patient was admitted to the hospital feeling ill with shaking chill. He has known diverticulosis. Patient had a colonoscopy 1 month ago. He has had multiple episodes of diverticulitis. This was similar to his prior episodes. CT scan did confirm thickening of the sigmoid colon suggesting early diverticulitis. Patient was treated with IV Levaquin and IV Flagyl with improvement. Patient was able to tolerated diet without difficulty. He had no abdominal pain, no diarrhea, no nausea. Patient denies any cough. He does report some chronic congestion which she has had for a year which is unchanged. He has been afebrile during his hospital stay. Patient is anxious to return home. It as he clinically is improved he will be discharged home. Exam Vital Signs (past 8 hours): - 10/20/20 07:50 10/20/20 09:00 10/20/20 10:28 Temperature 97.6 F Pulse Rate 60 64 Respiratory Rate 18 16 Blood Pressure 120/62 Pulse Oximetry 95 97 94 10/20/20 11:28 Temperature 97.4 F L Pulse Rate 63 Respiratory Rate 16 Blood Pressure 140/71 Pulse Oximetry 99 Oxygen Delivery Method Room Air Oxygen Flow Rate 0 Narrative Exam Narrative: Pleasant gentleman sitting in a chair in no obvious distress Lungs: Clear to auscultation Cardiac exam: Irregularly irregular normal S1-S2 Abdomen: Soft nontender nondistended without hepatosplenomegaly Extremities: No edema Objective Labs Result Diagrams: 10/20/20 06:05 10/20/20 06:05 Labs: Laboratory Results - last 24 hr 10/19/20 10/19/20 10/19/20 12:05 17:15 17:20 WBC 10.2 RBC 3.91 L Hgb 12.4 L Hct 36.5 L MCV 93.2 MCH 31.7 MCHC 34.0 RDW 14.3 Plt Count 144 L Neut % (Auto) 89.9 H Lymph % (Auto) 3.5 L [place] % (Auto) 5.7 Eos % (Auto) 0.7 L Baso % (Auto) 0.2 Neut # (Auto) 9200 H Lymph # (Auto) 400 L [place] # (Auto) 600 Eos # (Auto) 100 Baso # (Auto) 0 Sodium Potassium Chloride Carbon Dioxide BUN Creatinine Estimated GFR BUN/Creatinine Ratio Glucose Hemoglobin A1c Lactate Calcium Total Bilirubin AST ALT Alkaline Phosphatase NT-Pro-B Natriuret Pep Total Protein Albumin Globulin Albumin/Globulin Ratio Procalcitonin TSH Urine RBC Urine WBC Urine Bacteria Ur Culture Indicated? Chlamy pneumoniae PCR Not detected Adenovirus (PCR) Not detected B.parapertussis DNA PCR Not detected Coronavirus OC43 (PCR) Not detected Coronavirus HKU1 (PCR) Not detected Coronavirus 229E (PCR) Not detected SARS-CoV-2 (PCR) Not detected Negative Coronavirus NL63 (PCR) Not detected Human Metapneumovir PCR Not detected Influenza Type A (PCR) Not detected Influenza Type B (PCR) Not detected M. pneumoniae (PCR) Not detected Parainfluenza 1 (PCR) Not detected Parainfluenza 2 (PCR) Not detected Parainfluenza 3 (PCR) Not detected Parainfluenza 4 (PCR) Not detected RSV (PCR) Not detected Entero/Rhino (PCR) Not detected 10/19/20 10/19/20 10/19/20 17:20 17:20 17:20 WBC RBC Hgb Hct MCV MCH MCHC RDW Plt Count Neut % (Auto) Lymph % (Auto) [place] % (Auto) Eos % (Auto) Baso % (Auto) Neut # (Auto) Lymph # (Auto) [place] # (Auto) Eos # (Auto) Baso # (Auto) Sodium 139 Potassium 3.9 Chloride 103 Carbon Dioxide 28 BUN 27 H Creatinine 1.54 H Estimated GFR 44.0 L BUN/Creatinine Ratio 17.5 Glucose 128 H Hemoglobin A1c Lactate 1.7 Calcium 8.4 Total Bilirubin 0.4 AST 20 ALT 17 Alkaline Phosphatase 82 NT-Pro-B Natriuret Pep Total Protein 7.1 Albumin 4.0 Globulin 3.1 Albumin/Globulin Ratio 1.3 Procalcitonin 0.14 TSH Urine RBC Urine WBC Urine Bacteria Ur Culture Indicated? Chlamy pneumoniae PCR Adenovirus (PCR) B.parapertussis DNA PCR Coronavirus OC43 (PCR) Coronavirus HKU1 (PCR) Coronavirus 229E (PCR) SARS-CoV-2 (PCR) Coronavirus NL63 (PCR) Human Metapneumovir PCR Influenza Type A (PCR) Influenza Type B (PCR) M. pneumoniae (PCR) Parainfluenza 1 (PCR) Parainfluenza 2 (PCR) Parainfluenza 3 (PCR) Parainfluenza 4 (PCR) RSV (PCR) Entero/Rhino (PCR) 10/19/20 10/20/20 10/20/20 17:49 06:05 06:05 WBC 9.1 RBC 3.67 L Hgb 11.6 L Hct 34.3 L MCV 93.4 MCH 31.5 MCHC 33.8 RDW 14.6 Plt Count 143 L Neut % (Auto) 84.8 H Lymph % (Auto) 5.1 L [place] % (Auto) 8.4 Eos % (Auto) 1.2 L Baso % (Auto) 0.5 Neut # (Auto) 7700 H Lymph # (Auto) 500 L [place] # (Auto) 800 Eos # (Auto) 100 Baso # (Auto) 0 Sodium 136 L Potassium 4.2 Chloride 102 Carbon Dioxide 31 BUN 24 H Creatinine 1.41 H Estimated GFR 48.7 L BUN/Creatinine Ratio 17.0 Glucose 110 Hemoglobin A1c Lactate Calcium 8.4 Total Bilirubin 0.6 AST 20 ALT 16 Alkaline Phosphatase 74 NT-Pro-B Natriuret Pep Total Protein 6.7 Albumin 3.5 Globulin 3.2 Albumin/Globulin Ratio 1.1 Procalcitonin TSH Urine RBC 0-1/hpf Urine WBC 1-5/hpf Urine Bacteria Occasional (0-1) Ur Culture Indicated? Specimen cultured Chlamy pneumoniae PCR Adenovirus (PCR) B.parapertussis DNA PCR Coronavirus OC43 (PCR) Coronavirus HKU1 (PCR) Coronavirus 229E (PCR) SARS-CoV-2 (PCR) Coronavirus NL63 (PCR) Human Metapneumovir PCR Influenza Type A (PCR) Influenza Type B (PCR) M. pneumoniae (PCR) Parainfluenza 1 (PCR) Parainfluenza 2 (PCR) Parainfluenza 3 (PCR) Parainfluenza 4 (PCR) RSV (PCR) Entero/Rhino (PCR) 10/20/20 10/20/20 10/20/20 06:05 06:05 06:05 WBC RBC Hgb Hct MCV MCH MCHC RDW Plt Count Neut % (Auto) Lymph % (Auto) [place] % (Auto) Eos % (Auto) Baso % (Auto) Neut # (Auto) Lymph # (Auto) [place] # (Auto) Eos # (Auto) Baso # (Auto) Sodium Potassium Chloride Carbon Dioxide BUN Creatinine Estimated GFR BUN/Creatinine Ratio Glucose Hemoglobin A1c 6.3 H Lactate Calcium Total Bilirubin AST ALT Alkaline Phosphatase NT-Pro-B Natriuret Pep 1020 H Total Protein Albumin Globulin Albumin/Globulin Ratio Procalcitonin TSH 1.25 Urine RBC Urine WBC Urine Bacteria Ur Culture Indicated? Chlamy pneumoniae PCR Adenovirus (PCR) B.parapertussis DNA PCR Coronavirus OC43 (PCR) Coronavirus HKU1 (PCR) Coronavirus 229E (PCR) SARS-CoV-2 (PCR) Coronavirus NL63 (PCR) Human Metapneumovir PCR Influenza Type A (PCR) Influenza Type B (PCR) M. pneumoniae (PCR) Parainfluenza 1 (PCR) Parainfluenza 2 (PCR) Parainfluenza 3 (PCR) Parainfluenza 4 (PCR) RSV (PCR) Entero/Rhino (PCR) 10/20/20 08:20 WBC RBC Hgb Hct MCV MCH MCHC RDW Plt Count Neut % (Auto) Lymph % (Auto) [place] % (Auto) Eos % (Auto) Baso % (Auto) Neut # (Auto) Lymph # (Auto) [place] # (Auto) Eos # (Auto) Baso # (Auto) Sodium Potassium Chloride Carbon Dioxide BUN Creatinine Estimated GFR BUN/Creatinine Ratio Glucose Hemoglobin A1c Lactate 1.0 Calcium Total Bilirubin AST ALT Alkaline Phosphatase NT-Pro-B Natriuret Pep Total Protein Albumin Globulin Albumin/Globulin Ratio Procalcitonin TSH Urine RBC Urine WBC Urine Bacteria Ur Culture Indicated? Chlamy pneumoniae PCR Adenovirus (PCR) B.parapertussis DNA PCR Coronavirus OC43 (PCR) Coronavirus HKU1 (PCR) Coronavirus 229E (PCR) SARS-CoV-2 (PCR) Coronavirus NL63 (PCR) Human Metapneumovir PCR Influenza Type A (PCR) Influenza Type B (PCR) M. pneumoniae (PCR) Parainfluenza 1 (PCR) Parainfluenza 2 (PCR) Parainfluenza 3 (PCR) Parainfluenza 4 (PCR) RSV (PCR) Entero/Rhino (PCR) [facility] Medical History Asthma (11/04/11) Atrial flutter (03/20/17) Benign prostatic hyperplasia (11/04/11) Body mass index (BMI) of 30.0 to 39.9 (10/27/11) Controlled type 2 diabetes mellitus (10/03/16) Diverticulosis of sigmoid colon (03/20/17) Essential hypertension (10/27/11) Gastroesophageal reflux disease (03/01/14) Hyperlipidemia (10/27/11) Malignant neoplasm of urinary bladder (10/11/16) Tubular adenoma of colon (03/20/17) Surgical History History of appendectomy History of cardiac radiofrequency ablation History of cystoscopy Family History Father CAD (coronary artery disease) Hyperlipidemia Hypertension Hearing impairment Mother CAD (coronary artery disease) Hypertension Hyperlipidemia Cancer Social History (Updated 10/17/20 @ 13:46 by Danii Cash RN) marital status: household members: spouse occupational status: previously employed Smoking Status: Never smoker alcohol intake: never caffeine: Yes Discharge Assessment & Plan Assessment and Plan Assessment: 1. Acute diverticulitis 2. Acute renal failure, present on admission, improved 3. Chronic atrial fibrillation 4. GERD 5. Hypertension 6. Hyperlipidemia Plan of Treatment: Discharge home on levo floxacillin and Flagyl Continue usual home medication Follow-up with Dr. Mccullough in 1-2 weeks Discharge Plan Discharge Plan Patient Disposition: Home Discharge orders & Medications Prescriptions: New levofloxacin 250 mg Tablet 750 mg PO DAILY Qty: 10 RF: 0 metronidazole [Flagyl] 500 mg tablet 500 mg PO Q8H Qty: 30 RF: 0 Continued metoprolol succinate [Toprol XL] 25 MG tablet extended release 24 hr 25 mg PO DAILY Qty: 0 RF: 0 magnesium oxide 400 MG tablet 1 tab PO Q DAY Qty: 0 RF: 0 lovastatin 40 MG tablet 40 mg PO Q DAY Qty: 90 RF: 3 omeprazole 20 MG capsule,delayed release(DR/EC) 20 mg PO QDAY Qty: 90 RF: 3 potassium chloride [Klor-Con M20] 20 MEQ tablet,ER particles/crystals 20 meq PO AMCC Qty: 90 RF: 0 enalapril maleate 5 MG tablet 5 mg PO QDAY Qty: 90 RF: 1 metoprolol succinate 25 mg Tablet Extended Release 24 Hr 12.5 mg PO BEDTIME RF: 0 levothyroxine 75 mcg Capsule 75 mcg PO DAILY RF: 0 triamterene-hydrochlorothiazid 37.5-25 mg capsule 1 cap PO DAILY RF: 0 tamsulosin [Flomax] 0.4 MG capsule 0.8 mg PO QPM RF: 0 amiodarone 200 mg tablet 100 mg PO QPM RF: 0 liothyronine 5 mcg tablet 10 mcg PO DAILY RF: 0 Xarelto 20 mg tablet 20 mg PO QPM RF: 0 No Action (DME) blood sugar diagnostic [True Metrix Glucose Test Strip] strip See Dose Instructions .ROUTE .MEDSUPPLY Qty: 100 RF: 4 Follow up/Referrals: Robbie Mccullough MD [Primary Care Provider] - Discharge Health Status Multidrug resistant organism: No MDRO Diet/Activity/Treatments Diet: Diet as Tolerated Skin/Wound/Dressing Care Report to your healthcare provider any signs of infection, such as:: chills, fever Visit Report/Discharge Packet Instructions: DI for Pneumonia -- Adult, DI for Hypoxia Discharge Data Primary Care Provider: Robbie Mccullough
--- NOTE | 2020-10-20 14:47 | PT.IIE ---
Surgical History (Last Reviewed 10/20/20 @ 06:37 by [facility] History of appendectomy History of cardiac radiofrequency ablation History of cystoscopy Medical History (Last Reviewed 10/20/20 @ 06:37 by [facility] Asthma (11/04/11) Atrial flutter (03/20/17) Benign prostatic hyperplasia (11/04/11) Body mass index (BMI) of 30.0 to 39.9 (10/27/11) Controlled type 2 diabetes mellitus (10/03/16) Diverticulosis of sigmoid colon (03/20/17) Essential hypertension (10/27/11) Gastroesophageal reflux disease (03/01/14) Hyperlipidemia (10/27/11) Malignant neoplasm of urinary bladder (10/11/16) Tubular adenoma of colon (03/20/17) Physical Therapy Inpatient Evaluation/Re-Eval M1 PT/OT-IP Prior Functional Status Start: 10/20/20 10:56 Freq: NEEDED Status: Active Protocol: Document 10/20/20 14:36 [facility] (Rec: 10/20/20 14:47 [facility] [id number]) Medical Review Prior Functional Status Medical History Reviewed Yes Diet/Fluid Consistency Regular Communication WNL Mobility and Gait independent without device Activities of Daily Living and IADL's independent Social History Household Members spouse Living Arrangements House Number of Floors (Floors) Two Floors Number of Stairs To Enter/Railing? 3 with railing Home Environment Standard Height Toilet,Tub/ Shower Home Equipment Grab Bars Near Toilet,Grab Bars In Shower Employment Status Retired M2 PT-IP Current Condition Start: 10/20/20 10:56 Freq: NEEDED Status: Active Protocol: Document 10/20/20 14:36 [facility] (Rec: 10/20/20 14:47 [facility] [id number]) Physical Therapy Current Condition Current Condition Evaluation Date 10/20/20 Treatment Diagnosis pneumoni Weight Bearing Status Weight Bearing Status Full Weight Bearing M3 PT-IP Subjective Start: 10/20/20 10:56 Freq: NEEDED Status: Active Protocol: Document 10/20/20 14:36 [facility] (Rec: 10/20/20 14:47 [facility] [id number]) Subjective Physical Therapy Visit Type Type Initial Evaluation Visit Start Time 11:00 Visit Stop Time 11:25 Total Visit Minutes 25 Number of [employer] Visits 0 Physical Therapy Visit Comments Patient Comments Hoping to go home today Therapy Pain Assessment Pain When Pain Assessed At Rest Pain Present Pain Present Denied Pain M4 PT-IP Mobility and Gait Start: 10/20/20 10:56 Freq: NEEDED Status: Active Protocol: Document 10/20/20 14:36 [facility] (Rec: 10/20/20 14:47 [facility] [id number]) PT-Transfer Assessment Sit to and From Stand Sit to and from Stand Independent Equipment Transfer Assistive Device Gait Belt Orthotic/Prosthetic Devices or Brace: No Transfers Transfer Destination Chair Transfer Technique Stand Step Pivot Transfer Ability Level of Assist Independent Gait Assessment Gait Gait Assistance Required: Independent Distance (Feet) 40 Able to Maintain Weight Bearing Status Yes During Gait Assistive Devices Assistive Device Gait Belt Gait Deviations General Gait Pattern Within Normal Limits Comments Gait Comments No LOB, gait steady Stair Climbing Assessment Comments Stair Climbing Comments Patient refused; doesn't want to ambulate outside of his room due to Covid19 risk PT-Balance Assessment Sitting Balance and Reactions Static Sitting Balance Ability Normal Dynamic Sitting Balance Ability Normal Standing Balance and Reactions Static Standing Balance Ability Normal Dynamic Standing Balance Ability Normal M5 PT-IP Objective Assessments Start: 10/20/20 10:56 Freq: NEEDED Status: Active Protocol: Document 10/20/20 14:36 [facility] (Rec: 10/20/20 14:47 [facility] [id number]) Orientation Orientation/Cognition Level of Alertness Alert Orientation Name,Month,Date,Year,Day of Week,Place,Situation Language Function Ability No Deficits Noted Safety Awareness Understands Safety Issues Memory Description No Deficits Noted Gross Range of Motion Upper Extremity ROM Assessment Within Functional Limits Lower Extremity ROM Assessment Within Functional Limits Strength Upper Extremity Strength Assessment Within Functional Limits Lower Extremity Strength Assessment Within Functional Limits Coordination Assessment Gross Coordination Gross Coordination WNL Sensation Assessment Sensation Gross Sensation WNL Comments Sensation Comments denies N/T Muscle Tone Muscle Tone WNL Yes M7 PT-IP Assessment and Plan Start: 10/20/20 10:56 Freq: NEEDED Status: Active Protocol: Document 10/20/20 14:36 [facility] (Rec: 10/20/20 14:47 [facility] [id number]) PT Summary Assessment and Plan Potential Rehabilitation Potential Excellent Status of Condition at Evaluation Stable Summary Assessment Summary Patient safe and independent with his mobility skills within his hospital room; no PT needs. Patient ready for discharge home from PT standpoint. He refused gait in hallway or on stairs due to Covid19 risk. Goals Other Goals N/A Frequency of Treatment Frequency Of Treatment Discharge
--- NOTE | 2020-10-20 15:02 | PC.NURSE ---
GI: Feels ready to d/c home. Has been able to tolerate diet without problems. No pain. Seen by PT/OT and has been cleared to d/c home. Pt reports his spouse is helpful. Reviewed d/c packet with pt. Given rx. Questions answered. Awaiting for spouse to arrive.
--- NOTE | 2020-10-20 15:41 | PC.NURSE ---
Discharge: Spouse here and they reviewed meds. Does already have one of rx's which were just recently filled. He is instructed to follow the instructions for the medication on his paper work. Flagyl 500mg three times daily for 10 doses. He will need to fill the rx for levoquin. They had no further questions
== END 2020-10-20 15:25 | disposition home or self-care (01) | DRG 391 ==
LOC: ED 16:33 → AC 19:35
PROVIDERS: Admitting Provider Nurse Practitioner Family; Emergency Provider Emergency Medicine; PCP Internal Medicine; Referring Provider Emergency Medicine; Visit Provider Nurse Practitioner Family
DX: K57.32 Diverticulitis of large intestine without perforation or abscess without bleeding (principal); J96.01 Acute respiratory failure with hypoxia; I48.92 Unspecified atrial flutter; N17.9 Acute kidney failure, unspecified; J44.9 Chronic obstructive pulmonary disease, unspecified; Z79.01 Long term (current) use of anticoagulants; I12.9 Hypertensive chronic kidney disease with stage 1 through stage 4 chronic kidney disease, or unspecified chronic kidney disease; N18.30 Chronic kidney disease, stage 3 unspecified; N40.0 Benign prostatic hyperplasia without lower urinary tract symptoms; E11.22 Type 2 diabetes mellitus with diabetic chronic kidney disease; K21.9 Gastro-esophageal reflux disease without esophagitis; E78.5 Hyperlipidemia, unspecified; Z85.51 Personal history of malignant neoplasm of bladder; G47.33 Obstructive sleep apnea (adult) (pediatric); E03.9 Hypothyroidism, unspecified; Z20.828 Contact with and (suspected) exposure to other viral communicable diseases
CPT/HCPCS: 36415; 71045; 71260; 74177; 80053; 81003; 81015; 82962; 83036; 83605; 83880; 84145; 84443; 85025; 87040; 87086; 87633; 87635; 94762; 96365; 97161; 99284; J1956; Q9967

== ENCOUNTER → 2020-11-06 07:45 | Outpatient (CLI) | payer MEDICARE, SELFPAY ==
[2020-10-19 20:43] VITALS: BMI 37.5
[2020-11-06 08:17] LABS: Alanine Aminotransferase 23 IU/L (<50); Albumin Globulin Ratio 1.2 (1.0-2.8); Alkaline Phosphatase 73 U/L (38-126); Aspartate Aminotransferase 28 IU/L (17-59); BUN Creatinine Ratio 19.8 (6-22); Bilirubin Total 0.5 mg/dL (0.2-1.3); Blood Urea Nitrogen 24 mg/dL (9-20); Calcium 8.8 mg/dL (8.4-10.2); Carbon Dioxide 32 mmol/L (22-32); Chloride 102 mmol/L (98-107); Estimated Glomerular Filt Rate 58.1 mL/min (>60); Globulin 3.3 g/dL (1.7-4.1); Glucose 109 mg/dL (80-110); HEMOLYSIS < 15 (0-50); Potassium 4.1 mmol/L (3.4-5.1); Sodium 138 mmol/L (137-145); Total Protein 7.3 g/dL (6.3-8.2)
== END ==
PROVIDERS: PCP Internal Medicine; Referring Provider Internal Medicine; Visit Provider Internal Medicine
DX: E11.9 Type 2 diabetes mellitus without complications (principal); E03.9 Hypothyroidism, unspecified
CPT/HCPCS: 36415; 80053

== ENCOUNTER 2020-12-24 10:02 | Observation (INO) | payer MEDICARE, SELFPAY ==
[2020-12-19 10:37] VITALS: BMI 37.5
[2020-12-24] VITALS (26 sets, daily range): BP systolic 111–161; BP diastolic 55–73; PULSE 51–79; RESP 18–43; TEMP 36.3; O2SAT 95–99; BMI 35.8
--- NOTE | 2020-12-24 10:08 | ED_ITS ---
HPI - GI Bleed General Chief complaint: GI Bleed Stated complaint: Blood coming out his Rear end. Time Seen by Provider: 12/24/20 10:03 Source: patient Mode of arrival: Ambulatory Limitations: no limitations History of Present Illness HPI Narrative: 75-year-old male non smoker with history AFib, hypothyroid, hypertension presents with the chief complaint of painless, bright red bleeding per rectum. He has no symptoms otherwise, no pain, dizziness, lightheadness, or SOB. He does take Xarelto for AFib and has done so for over a year. He states he had a prostate exam on that resulted in a small amount of bleeding rectally. He denies any history of the same. He is otherwise well and free of complaint. He states it was a small amount, only in the toilet bowl and is pretty much stopped at this point Related Data Home Medications Medication Instructions Recorded Confirmed magnesium oxide 1 tab PO Q DAY #0 07/31/16 12/19/20 metoprolol succinate [Toprol XL] 25 mg PO DAILY #0 07/31/16 12/19/20 amiodarone 200 mg tablet 100 mg PO QPM 04/18/19 12/19/20 liothyronine 5 mcg tablet 10 mcg PO DAILY tab 04/18/19 12/19/20 rivaroxaban 20 mg tablet 20 mg PO QPM 04/18/19 12/19/20 levothyroxine 75 mcg PO DAILY 01/12/20 12/19/20 metoprolol succinate 12.5 mg PO BEDTIME 01/12/20 12/19/20 triamterene-hydrochlorothiazid 1 cap PO DAILY 01/12/20 12/19/20 tamsulosin [Flomax] 0.8 mg PO QPM 10/19/20 12/19/20 Previous Rx's Medication Instructions Recorded lovastatin 40 mg PO Q DAY #90 tab 03/04/17 omeprazole 20 mg PO QDAY #90 cap 03/04/17 potassium chloride [Klor-Con M20] 20 meq PO AMCC #90 tab 05/27/17 enalapril maleate 5 mg PO QDAY #90 tab 08/03/17 blood sugar diagnostic #100 each 04/23/18 levofloxacin 500 mg PO DAILY #10 tab 10/20/20 levofloxacin 750 mg PO DAILY #10 tab 10/20/20 metronidazole [Flagyl] 500 mg PO Q8H #10 tab 10/20/20 metronidazole [Flagyl] 500 mg PO Q8H #30 tab 10/20/20 Allergies Allergy/AdvReac Type Severity Reaction Status Date / Time latex Allergy Verified 12/24/20 10:13 Review of Systems Constitutional Constitutional: Denies chills, Denies fatigue, Denies fever(s), Denies frequent falls, Denies lethargy and Denies weakness Eyes Eyes: Denies change in vision, Denies eye discharge, Denies irritation and Denies loss of vision ENT Ears, Nose, Mouth, and Throat: Denies change in voice, Denies dizziness, Denies neck pain, Denies sore throat and Denies throat swelling Cardiovascular Cardiovascular: Denies chest pain, Denies irregular heart rhythm, Denies lightheadedness, Denies palpitations, Denies dyspnea, Denies dyspnea on exertion and Denies orthopnea Respiratory Respiratory: Denies cough, Denies dyspnea, Denies dyspnea on exertion and Denies wheezing Gastrointestinal Gastrointestinal: Denies abdominal pain, Reports hematochezia, Denies change in bowel habits, Denies diarrhea, Denies nausea and Denies vomiting Musculoskeletal Musculoskeletal: Denies neck pain and Denies numbness Integumentary/Breasts Skin/Breast: Denies pruritus, Denies erythema, Denies rash and Denies wounds Neurologic Neurologic: Denies behavioral changes, Denies confusion, Denies dizziness, Denies frequent falls, Denies loss of vision, Denies numbness and Denies weakness Psychiatric Psychiatric: Denies anxiety, Denies behavioral changes, Denies confusion, Denies depression, Denies homicidal ideation and Denies suicidal ideation Endocrine Endocrine: Denies fatigue, Denies flushing and Denies palpitations Hematologic/Lymphatic Hematologic/Lymphatic: Denies easy bruising Allergic/Immunologic Allergic/Immunologic: Denies urticaria, Denies throat swelling and Denies wheezing Patient History Medical History Asthma (11/04/11) Atrial flutter (03/20/17) Benign prostatic hyperplasia (11/04/11) Body mass index (BMI) of 30.0 to 39.9 (10/27/11) BPH w urinary obs/LUTS Controlled type 2 diabetes mellitus (10/03/16) Diabetes Diverticulosis of sigmoid colon (03/20/17) Essential hypertension (10/27/11) Family history of prostate cancer Gastroesophageal reflux disease (03/01/14) History of primary bladder cancer Hyperlipidemia (10/27/11) Malignant neoplasm of urinary bladder (10/11/16) Tubular adenoma of colon (03/20/17) Surgical History History of appendectomy History of cardiac radiofrequency ablation History of cystoscopy Family History Father CAD (coronary artery disease) Hyperlipidemia Hypertension Hearing impairment Mother CAD (coronary artery disease) Hypertension Hyperlipidemia Cancer Social History marital status: household members: spouse occupational status: previously employed Smoking Status: Never smoker alcohol intake: never caffeine: Yes Smoking Status: Never smoker alcohol intake frequency: 0-2 drinks per day Substance Use Type: does not use Exam Narrative Exam Narrative: GENERAL: [75] year old patient appears stated age. Well- nourished, well-developed patient, in mild distress. HEAD: Atraumatic. Normocephalic. EYES: Pupils equal round and reactive. Extraocular motions intact. No scleral icterus. No injection or drainage. ENT: Nose without bleeding, purulent drainage. Throat without erythema, tonsillar hypertrophy or exudate. Airway patent. NECK: Trachea midline. Non tender CARDIOVASCULAR: Regular rate and rhythm without murmurs, gallops, or rubs. RESPIRATORY: Clear to auscultation. Breath sounds equal bilaterally. No wheezes, rales, or rhonchi. GASTROINTESTINAL: Abdomen soft, non-tender, nondistended. RECTAL: very minimal amount of bright red blood per rectum. EXTREMITIES: No edema or joint tenderness. BACK: Nontender without deformity or crepitance. No flank tenderness. NEURO: AOx3. SKIN: No rash or erythema of visible areas Initial Vital Signs Initial Vital Signs: Vital Signs Temperature 97.3 F L 12/24/20 10:05 Pulse Rate 65 12/24/20 10:05 Respiratory Rate 18 12/24/20 10:05 Blood Pressure 161/73 H 12/24/20 10:05 Pulse Oximetry 98 12/24/20 10:05 Course Orders Ordered: Discontinued Medications Ondansetron HCl (Ondansetron 4 Mg/2 Ml Inj) 4 mg IV NOW ONE Stop: 12/24/20 10:07 Last Admin: 12/24/20 13:47 Dose: Not Given Documented by: ANIYA Consultations Consultation #1: Dr. Montez has seen patient at bedside. He is no longer bleeding and would very much like to go home. He has had risks explained by myself and surgery and has capacity to make this decision. Vital Signs Vital signs: Vital Signs - 8 hr 12/24/20 10:05 12/24/20 10:45 12/24/20 11:30 Temperature 97.3 F L Pulse Rate 65 57 L 54 L Respiratory Rate 18 23 18 Blood Pressure 161/73 H 141/61 H 133/63 Pulse Oximetry 98 96 97 12/24/20 11:45 12/24/20 12:00 12/24/20 12:15 Temperature Pulse Rate 56 L 55 L 55 L Respiratory Rate 24 18 18 Blood Pressure 123/58 L 129/62 115/57 L Pulse Oximetry 98 97 96 12/24/20 12:30 12/24/20 12:45 12/24/20 13:00 Temperature Pulse Rate 55 L 51 L 56 L Respiratory Rate 19 18 18 Blood Pressure 134/59 L 118/56 L 111/58 L Pulse Oximetry 95 96 96 12/24/20 13:15 12/24/20 13:40 12/24/20 13:42 Temperature Pulse Rate 54 L 69 60 Respiratory Rate 19 24 22 Blood Pressure 117/55 L 147/63 H Pulse Oximetry 96 97 97 12/24/20 13:45 Temperature Pulse Rate 57 L Respiratory Rate 24 Blood Pressure 129/60 Pulse Oximetry 97 MDM - GI Bleed Lab Data Result diagrams: 12/24/20 12:02 12/24/20 10:15 Labs: Lab Results 12/24/20 12/24/20 12/24/20 Range/Units 10:15 10:15 10:15 WBC 7.3 (4.5-11.0) X10^3/uL RBC 4.14 L (4.5-5.9) X10^6/uL Hgb 13.0 L (13.5-17.5) g/dL Hct 38.4 L (41-53) % MCV 92.9 (80-100) fL MCH 31.3 (26-34) PG MCHC 33.7 (30-36) % RDW 13.5 (11.6-14.8) % Plt Count 213 (150-400) X10^3/uL Neut % (Auto) 75.5 H (50-75) % Lymph % (Auto) 13.6 L (25-40) % [place] % (Auto) 7.7 (3-14) % Eos % (Auto) 2.6 (2-4) % Baso % (Auto) 0.6 (0-2) % Neut # (Auto) 5500 (4758-4610) /uL Lymph # (Auto) 1000 L (7899-0270) /uL [place] # (Auto) 600 (0-900) /uL Eos # (Auto) 200 (0-450) /uL Baso # (Auto) 0 (0-100) /uL PT 22.6 H (10.1-12.7) SECONDS INR 2.0 H (0.9-1.3) APTT 46 H D (26.4-36.2) SECONDS Sodium 138 (137-145) mmol/L Potassium 4.0 (3.4-5.1) mmol/L Chloride 100 (98-107) mmol/L Carbon Dioxide 31 (22-32) mmol/L BUN 25 H (9-20) mg/dL Creatinine 1.24 (0.66-1.25) mg/dL Estimated GFR 56.5 L (>60) mL/min BUN/Creatinine Ratio 20.2 (6-22) Glucose 134 H (80-110) mg/dL Calcium 9.3 (8.4-10.2) mg/dL Total Bilirubin 0.4 (0.2-1.3) mg/dL AST 25 (17-59) IU/L ALT 25 (<50) IU/L Alkaline Phosphatase 79 (38-126) U/L Total Protein 7.8 (6.3-8.2) g/dL Albumin 4.4 (3.5-5.0) g/dL Globulin 3.4 (1.7-4.1) g/dL Albumin/Globulin Ratio 1.3 (1.0-2.8) SARS-CoV-2 (PCR) (Negative) Blood Type Antibody Screen 12/24/20 12/24/2012/24/21 Range/Units 10:15 10:15 12:02 WBC (4.5-11.0) X10^3/uL RBC (4.5-5.9) X10^6/uL Hgb Cancelled 11.9 L (13.5-17.5) g/dL Hct Cancelled 35.0 L (41-53) % MCV (80-100) fL MCH (26-34) PG MCHC (30-36) % RDW (11.6-14.8) % Plt Count (150-400) X10^3/uL Neut % (Auto) (50-75) % Lymph % (Auto) (25-40) % [place] % (Auto) (3-14) % Eos % (Auto) (2-4) % Baso % (Auto) (0-2) % Neut # (Auto) (2121-7424) /uL Lymph # (Auto) (7524-1811) /uL [place] # (Auto) (0-900) /uL Eos # (Auto) (0-450) /uL Baso # (Auto) (0-100) /uL PT (10.1-12.7) SECONDS INR (0.9-1.3) APTT (26.4-36.2) SECONDS Sodium (137-145) mmol/L Potassium (3.4-5.1) mmol/L Chloride (98-107) mmol/L Carbon Dioxide (22-32) mmol/L BUN (9-20) mg/dL Creatinine (0.66-1.25) mg/dL Estimated GFR (>60) mL/min BUN/Creatinine Ratio (6-22) Glucose (80-110) mg/dL Calcium (8.4-10.2) mg/dL Total Bilirubin (0.2-1.3) mg/dL AST (17-59) IU/L ALT (<50) IU/L Alkaline Phosphatase (38-126) U/L Total Protein (6.3-8.2) g/dL Albumin (3.5-5.0) g/dL Globulin (1.7-4.1) g/dL Albumin/Globulin Ratio (1.0-2.8) SARS-CoV-2 (PCR) (Negative) Blood Type A Positive Antibody Screen Negative 12/24/20 Range/Units 13:36 WBC (4.5-11.0) X10^3/uL RBC (4.5-5.9) X10^6/uL Hgb (13.5-17.5) g/dL Hct (41-53) % MCV (80-100) fL MCH (26-34) PG MCHC (30-36) % RDW (11.6-14.8) % Plt Count (150-400) X10^3/uL Neut % (Auto) (50-75) % Lymph % (Auto) (25-40) % [place] % (Auto) (3-14) % Eos % (Auto) (2-4) % Baso % (Auto) (0-2) % Neut # (Auto) (0233-1591) /uL Lymph # (Auto) (7353-3692) /uL [place] # (Auto) (0-900) /uL Eos # (Auto) (0-450) /uL Baso # (Auto) (0-100) /uL PT (10.1-12.7) SECONDS INR (0.9-1.3) APTT (26.4-36.2) SECONDS Sodium (137-145) mmol/L Potassium (3.4-5.1) mmol/L Chloride (98-107) mmol/L Carbon Dioxide (22-32) mmol/L BUN (9-20) mg/dL Creatinine (0.66-1.25) mg/dL Estimated GFR (>60) mL/min BUN/Creatinine Ratio (6-22) Glucose (80-110) mg/dL Calcium (8.4-10.2) mg/dL Total Bilirubin (0.2-1.3) mg/dL AST (17-59) IU/L ALT (<50) IU/L Alkaline Phosphatase (38-126) U/L Total Protein (6.3-8.2) g/dL Albumin (3.5-5.0) g/dL Globulin (1.7-4.1) g/dL Albumin/Globulin Ratio (1.0-2.8) SARS-CoV-2 (PCR) Negative (Negative) Blood Type Antibody Screen Point of Care Testing Stool Occult Blood Positive Discharge Plan Departure Patient Disposition: Home Clinical Impression: Acute GI bleeding, Anticoagulant effect
[2020-12-24 10:27] LABS: Add Manual Diff / Slide Review NO; Basophils Absolute Auto 0 /uL (0-100); Basophils Percent Auto 0.6 % (0-2); Eosinophils Absolute Auto 200 /uL (0-450); Eosinophils Percent Auto 2.6 % (2-4); Hematocrit 38.4 % (41-53); Lymphocytes Absolute Auto 1000 /uL (1100-4500); Lymphocytes Percent Auto 13.6 % (25-40); Mean Corpuscular HGB Conc 33.7 % (30-36); Mean Corpuscular Hemoglobin 31.3 PG (26-34); Mean Corpuscular Volume 92.9 fL (80-100); Monocytes Absolute Auto 600 /uL (0-900); Monocytes Percent Auto 7.7 % (3-14); Neutrophils Absolute Auto 5500 /uL (1500-7000); Neutrophils Percent Auto 75.5 % (50-75); Platelet Count 213 X10^3/uL (150-400); Red Blood Cell Count 4.14 X10^6/uL (4.5-5.9); Red Cell Distribution Width 13.5 % (11.6-14.8); White Blood Cell Count 7.3 X10^3/uL (4.5-11.0)
[2020-12-24 10:42] LABS: Prothrombin Time 22.6 SECONDS (10.1-12.7)
[2020-12-24 10:45] LABS: PTT Partial Thromboplastin Tim 46 SECONDS (26.4-36.2)
[2020-12-24 10:50] LABS: Alanine Aminotransferase 25 IU/L (<50); Albumin 4.4 g/dL (3.5-5.0); Albumin Globulin Ratio 1.3 (1.0-2.8); Alkaline Phosphatase 79 U/L (38-126); Aspartate Aminotransferase 25 IU/L (17-59); BUN Creatinine Ratio 20.2 (6-22); Bilirubin Total 0.4 mg/dL (0.2-1.3); Blood Urea Nitrogen 25 mg/dL (9-20); Calcium 9.3 mg/dL (8.4-10.2); Carbon Dioxide 31 mmol/L (22-32); Chloride 100 mmol/L (98-107); Estimated Glomerular Filt Rate 56.5 mL/min (>60); Globulin 3.4 g/dL (1.7-4.1); Glucose 134 mg/dL (80-110); HEMOLYSIS < 15 (0-50); Sodium 138 mmol/L (137-145); Total Protein 7.8 g/dL (6.3-8.2)
--- NOTE | 2020-12-24 11:22 | PC.NURSE ---
pt stool is maroon with Pudding like consistency.
[2020-12-24 12:14] LABS: Hemoglobin 11.9 g/dL (13.5-17.5)
[2020-12-24 13:59] LABS: COVID19 -Nasal RAPID Negative (Negative)
--- NOTE | 2020-12-24 16:54 | PM.CN ---
History of Present Illness Consult details Date Patient Seen: 12/24/20 Time Patient Seen: 16:54 Chief complaint: Blood coming out his Rear end. Reason for consult: Rectal pain and bleeding Requesting provider: Jon Elliott Narrative: This is a 75-year-old man with h/o HTN, obesity (BMI 36), atrial flutter anticoagulated on Xarelto, type 2 diabetes that is diet controlled, COPD, asthma, obstructive sleep apnea, GERD, diverticulosis, diverticulitis, adenomas of colon and bladder tumor who came into the ER with recent bright red rectal bleeding. He was seen in by Dr. Dasilva of urology last and had some pain on rectal exam, and a small amount of bleeding afterward. Yesterday he noticed suddenly more significant bleeding, which showed up as passing a large amount of bloody stool and clots. He came into the ER, and was found to have Hgb 13, and was 11.9 on recheck without IV fluids. He passed more bloody stool in the ER. He feels that it is slowing down. He denies pain with bowel movements. He had a colonoscopy just a few months ago, which revealed diverticulosis, no polyps, and a small area of inflammation/colitis in the rectosigmoid (this was indicated on biopsy). ROS: Thirteen system review is otherwise negative other than as mentioned below and in HPI. PE: GENERAL APPEARANCE: Alert, comfortable, appears stated age, obese, nontoxic, in no distress HEENT: Normocephalic, PERRLA, no apparent rhinorrhea, or mucosal erythema EYES: Conjunctiva pink, sclera white, no periorbital swelling. CARDIOVASCULAR: Regular rate. No pedal edema. RESPIRATORY: Non-tachypneic, breathing comfortably on room air. GASTROINTESTINAL: Abdomen obese, rounded, nontender, no masses Perianal: no gross blood, no stool staining, no external hemorrhoids JUAN: TTP, worst in the posterior midline; scant bloody drainage on rectal exam, no copious drainage, no palpable masses GENITALURINARY: No flank tenderness. MUSCULOSKELETAL: Equal tone and mass bilaterally. SKIN: Warm, dry, soft, appropriate color for ethnicity. No other lesions, rashes, or wounds. NEURO: Alert and Oriented X 3. No gross sensory deficits, or cognitive issues. PSYCH: Appropriate affect and mood. Meds Home Medications and Allergies Home Medications Medication Instructions Recorded Confirmed Type magnesium oxide 1 tab PO Q DAY #0 07/31/16 12/19/20 History metoprolol succinate [Toprol XL] 25 mg PO DAILY #0 07/31/16 12/19/20 History lovastatin 40 mg PO Q DAY #90 tab 03/04/17 12/19/20 Rx omeprazole 20 mg PO QDAY #90 cap 03/04/17 12/19/20 Rx potassium chloride [Klor-Con M20] 20 meq PO AMCC #90 tab 05/27/17 12/19/20 Rx enalapril maleate 5 mg PO QDAY #90 tab 08/03/17 12/19/20 Rx blood sugar diagnostic #100 each 04/23/18 12/19/20 Rx amiodarone 200 mg tablet 100 mg PO QPM 04/18/19 12/19/20 History liothyronine 5 mcg tablet 10 mcg PO DAILY tab 04/18/19 12/19/20 History rivaroxaban 20 mg tablet 20 mg PO QPM 04/18/19 12/19/20 History levothyroxine 75 mcg PO DAILY 01/12/20 12/19/20 History metoprolol succinate 12.5 mg PO BEDTIME 01/12/20 12/19/20 History triamterene-hydrochlorothiazid 1 cap PO DAILY 01/12/20 12/19/20 History tamsulosin [Flomax] 0.8 mg PO QPM 10/19/20 12/19/20 History levofloxacin 500 mg PO DAILY #10 tab 10/20/20 12/19/20 Rx levofloxacin 750 mg PO DAILY #10 tab 10/20/20 12/19/20 Rx metronidazole [Flagyl] 500 mg PO Q8H #10 tab 10/20/20 12/19/20 Rx metronidazole [Flagyl] 500 mg PO Q8H #30 tab 10/20/20 12/19/20 Rx Allergies Allergy/AdvReac Type Severity Reaction Status Date / Time latex Allergy Verified 12/24/20 10:13 Exam Vital Signs (past 8 hours): - 12/24/20 10:05 12/24/20 10:45 12/24/20 11:30 Temperature 97.3 F L Pulse Rate 65 57 L 54 L Respiratory Rate 18 23 18 Blood Pressure 161/73 H 141/61 H 133/63 Pulse Oximetry 98 96 97 03/08/21 11:45 12/24/20 12:00 12/24/20 12:15 Temperature Pulse Rate 56 L 55 L 55 L Respiratory Rate 24 18 18 Blood Pressure 123/58 L 129/62 115/57 L Pulse Oximetry 98 97 96 12/24/20 12:30 12/24/20 12:45 12/24/20 13:00 Temperature Pulse Rate 55 L 51 L 56 L Respiratory Rate 19 18 18 Blood Pressure 134/59 L 118/56 L 111/58 L Pulse Oximetry 95 96 96 12/24/20 13:15 12/24/20 13:40 12/24/20 13:42 Temperature Pulse Rate 54 L 69 60 Respiratory Rate 19 24 22 Blood Pressure 117/55 L 147/63 H Pulse Oximetry 96 97 97 12/24/20 13:45 12/24/20 14:00 12/24/20 14:15 Temperature Pulse Rate 57 L 54 L 53 L Respiratory Rate 24 19 20 Blood Pressure 129/60 131/65 127/60 Pulse Oximetry 97 97 97 12/24/20 14:30 12/24/20 14:45 12/24/20 14:59 Temperature Pulse Rate 52 L 54 L 66 Respiratory Rate 20 18 43 H Blood Pressure 130/61 130/63 Pulse Oximetry 96 96 99 12/24/20 15:00 12/24/20 15:21 12/24/20 15:23 Temperature Pulse Rate 79 64 Respiratory Rate 18 Blood Pressure 133/72 140/64 Pulse Oximetry 98 12/24/20 15:30 12/24/20 15:46 12/24/20 16:00 Temperature Pulse Rate 58 L 63 63 Respiratory Rate 19 24 Blood Pressure 124/59 L 128/69 Pulse Oximetry 99 98 98 12/24/20 16:16 12/24/20 16:24 Temperature Pulse Rate 79 Respiratory Rate Blood Pressure 121/58 L Pulse Oximetry Oxygen Delivery Method Room Air Objective Labs Result Diagrams: 12/24/20 12:02 12/24/20 10:15 Labs: Laboratory Results - last 24 hr 12/24/20 12/24/20 12/24/20 10:15 10:15 10:15 WBC 7.3 RBC 4.14 L Hgb 13.0 L Hct 38.4 L MCV 92.9 MCH 31.3 MCHC 33.7 RDW 13.5 Plt Count 213 Neut % (Auto) 75.5 H Lymph % (Auto) 13.6 L [place] % (Auto) 7.7 Eos % (Auto) 2.6 Baso % (Auto) 0.6 Neut # (Auto) 5500 Lymph # (Auto) 1000 L [place] # (Auto) 600 Eos # (Auto) 200 Baso # (Auto) 0 PT 22.6 H INR 2.0 H APTT 46 H D Sodium 138 Potassium 4.0 Chloride 100 Carbon Dioxide 31 BUN 25 H Creatinine 1.24 Estimated GFR 56.5 L BUN/Creatinine Ratio 20.2 Glucose 134 H Calcium 9.3 Total Bilirubin 0.4 AST 25 ALT 25 Alkaline Phosphatase 79 Total Protein 7.8 Albumin 4.4 Globulin 3.4 Albumin/Globulin Ratio 1.3 SARS-CoV-2 (PCR) Blood Type Antibody Screen 12/24/20 12/24/20 12/24/20 10:15 10:15 12:02 WBC RBC Hgb Cancelled 11.9 L Hct Cancelled 35.0 L MCV MCH MCHC RDW Plt Count Neut % (Auto) Lymph % (Auto) [place] % (Auto) Eos % (Auto) Baso % (Auto) Neut # (Auto) Lymph # (Auto) [place] # (Auto) Eos # (Auto) Baso # (Auto) PT INR APTT Sodium Potassium Chloride Carbon Dioxide BUN Creatinine Estimated GFR BUN/Creatinine Ratio Glucose Calcium Total Bilirubin AST ALT Alkaline Phosphatase Total Protein Albumin Globulin Albumin/Globulin Ratio SARS-CoV-2 (PCR) Blood Type A Positive Antibody Screen Negative 12/24/20 13:36 WBC RBC Hgb Hct MCV MCH MCHC RDW Plt Count Neut % (Auto) Lymph % (Auto) [place] % (Auto) Eos % (Auto) Baso % (Auto) Neut # (Auto) Lymph # (Auto) [place] # (Auto) Eos # (Auto) Baso # (Auto) PT INR APTT Sodium Potassium Chloride Carbon Dioxide BUN Creatinine Estimated GFR BUN/Creatinine Ratio Glucose Calcium Total Bilirubin AST ALT Alkaline Phosphatase Total Protein Albumin Globulin Albumin/Globulin Ratio SARS-CoV-2 (PCR) Negative Blood Type Antibody Screen Assessment & Plan Assessment and plan (1) Rectal bleeding: Status: Acute (2) Anticoagulated by anticoagulation treatment: Status: Acute (3) Obesity (BMI 30-39.9): Status: Acute Assessment & Plan narrative: This is a 75 yo man with recent onset of acute rectal bleeding. Potential sources of bleeding include anal fissure, internal hemorrhoids, diverticulosis. I discussed with the patient the likely sources of bleeding, and the recommendation to absolutely prevent constipation, and to use preparation H suppositories to help contract the hemorrhoidal vessels. He will need to hold his Xarelto until the bleeding stops. The patient stated he wanted to be admitted initially, but now feels he would like to go home. He has someone to be with him at home and keep an eye on him. I explained to him that he would need to return to the ER if bleeding gets worse, and he should be seen in [facility] office tomorrow, or the next day. He will need to hold Xarelto until his bleeding stops. This plan was discussed with Dr. Elliott. If the patient is admitted I will be happy to follow along for any surgical needs. If discharged, he should follow up in [facility] office this week.
== END 2020-12-24 16:15 | disposition home or self-care (01) ==
LOC: ED 13:45 → AC 13:46
PROVIDERS: Admitting Provider Internal Medicine; Emergency Provider Emergency Medicine; PCP Internal Medicine; Referring Provider Emergency Medicine; Visit Provider Internal Medicine
DX: K62.5 Hemorrhage of anus and rectum (principal); K57.30 Diverticulosis of large intestine without perforation or abscess without bleeding; K21.9 Gastro-esophageal reflux disease without esophagitis; E11.9 Type 2 diabetes mellitus without complications; I48.92 Unspecified atrial flutter; I10 Essential (primary) hypertension; J44.9 Chronic obstructive pulmonary disease, unspecified; G47.33 Obstructive sleep apnea (adult) (pediatric); E66.9 Obesity, unspecified; E03.9 Hypothyroidism, unspecified; Z79.01 Long term (current) use of anticoagulants; Z68.36 Body mass index [BMI] 36.0-36.9, adult; Z20.822 Contact with and (suspected) exposure to COVID-19
CPT/HCPCS: 36415; 80053; 82272; 85014; 85018; 85025; 85610; 85730; 86850; 86900; 86901; 87635; 93005; 99283; 99284; C9803; G0378

== ENCOUNTER → 2020-12-27 12:53 | Outpatient (CLI) | payer MEDICARE, SELFPAY ==
[2020-12-19 10:37] VITALS: BMI 37.5
[2020-12-27 13:34] LABS: COVID19 -Nasal RAPID Negative (Negative)
== END ==
PROVIDERS: PCP Internal Medicine; Referring Provider Internal Medicine; Visit Provider Internal Medicine
DX: Z20.822 Contact with and (suspected) exposure to COVID-19 (principal)
CPT/HCPCS: 87635; C9803

== ENCOUNTER → 2020-12-28 15:01 | Outpatient (CLI) | payer MEDICARE, SELFPAY ==
[2020-12-19 10:37] VITALS: BMI 37.5
--- NOTE | 2021-01-03 10:54 | PM.PFT.1 ---
Pulmonary Function Test Referral & Results Date Patient Seen: 12/28/20 Requesting provider: Kris Tatum Results: The spirometry demonstrates an FVC of 3.0 L which is 82% of predicted. The FEV1 was measured at 2.09 L which is 80% of predicted. The FEV1/FVC ratio was 70 which is 96% of predicted. Following the administration of bronchodilator there was no appreciable change. Lung volumes show an SVC of 3.04 L which is 76% of predicted. The diffusing capacity was measured at 18.52 which is 65% of predicted. No hemoglobin value was provided, so no correction for potential anemia could be made, if appropriate. The maximum voluntary ventilation was reduced Interpretation: This study demonstrates minimal reduction in lung volumes both forced and slow volumes suggestive perhaps a very mild restrictive lung disease There is also a minimal reduction in diffusing capacity, suggesting element of disease at the capillary alveolar level Compared to PFTs performed in April 2019, current study is essentially unchanged
== END ==
PROVIDERS: PCP Internal Medicine; Referring Provider Internal Medicine Cardiovascular Disease; Visit Provider Internal Medicine Cardiovascular Disease
DX: R06.02 Shortness of breath (principal); J98.8 Other specified respiratory disorders; I48.0 Paroxysmal atrial fibrillation
CPT/HCPCS: 94060; 94726; 94729

== ENCOUNTER → 2020-12-31 13:14 | Outpatient (CLI) | payer MEDICARE, SELFPAY ==
[2020-12-19 10:37] VITALS: BMI 37.5
[2020-12-31] MEDS: COVID-19 VACC, Ad26(JANSSEN)/PF 0.5 ML IM (13:28)
== END ==
PROVIDERS: PCP Internal Medicine; Visit Provider Internal Medicine
DX: Z23 Encounter for immunization (principal)
CPT/HCPCS: 0031A; 91303

== ENCOUNTER → 2021-01-23 09:31 | Outpatient (CLI) | payer MEDICARE, SELFPAY ==
[2020-12-19 10:37] VITALS: BMI 37.5
[2021-01-23 11:17] LABS: Alanine Aminotransferase 20 IU/L (<50); Albumin 3.9 g/dL (3.5-5.0); Albumin Globulin Ratio 1.4 (1.0-2.8); Alkaline Phosphatase 77 U/L (38-126); Aspartate Aminotransferase 24 IU/L (17-59); Bilirubin Total 0.3 mg/dL (0.2-1.3); Blood Urea Nitrogen 27 mg/dL (9-20); Calcium 8.7 mg/dL (8.4-10.2); Carbon Dioxide 28 mmol/L (22-32); Chloride 104 mmol/L (98-107); Cholesterol 142 mg/dL (140-199); Estimated Glomerular Filt Rate 57.1 mL/min (>60); Globulin 2.8 g/dL (1.7-4.1); Glucose 95 mg/dL (80-110); HDL Cholesterol 35 mg/dL (40-60); HEMOLYSIS 31 (0-50); LDL Cholesterol Calculated 82 mg/dL (<100); Potassium 4.3 mmol/L (3.4-5.1); Sodium 140 mmol/L (137-145); Total Protein 6.7 g/dL (6.3-8.2); Triglycerides 123 mg/dL (35-150)
[2021-01-23 11:43] LABS: Thyroid Stimulating Hormone 1.33 uIU/mL (0.47-4.68)
== END ==
PROVIDERS: PCP Internal Medicine; Referring Provider Internal Medicine Cardiovascular Disease; Visit Provider Internal Medicine Cardiovascular Disease
DX: E78.5 Hyperlipidemia, unspecified (principal); I48.0 Paroxysmal atrial fibrillation
CPT/HCPCS: 36415; 80053; 80061; 84443

== ENCOUNTER → 2021-02-25 10:26 | Outpatient (CLI) | payer MEDICARE, SELFPAY ==
[2020-12-19 10:37] VITALS: BMI 37.5
[2021-02-25 11:51] LABS: Alanine Aminotransferase 21 IU/L (<50); Albumin 3.9 g/dL (3.5-5.0); Albumin Globulin Ratio 1.1 (1.0-2.8); Alkaline Phosphatase 53 U/L (38-126); Aspartate Aminotransferase 33 IU/L (17-59); BUN Creatinine Ratio 18.4 (6-22); Bilirubin Total 0.3 mg/dL (0.2-1.3); Blood Urea Nitrogen 26 mg/dL (9-20); Calcium 9.1 mg/dL (8.4-10.2); Carbon Dioxide 30 mmol/L (22-32); Chloride 102 mmol/L (98-107); Estimated Glomerular Filt Rate 48.7 mL/min (>60); Globulin 3.5 g/dL (1.7-4.1); Glucose 93 mg/dL (80-110); HEMOLYSIS < 15 (0-50); Potassium 4.4 mmol/L (3.4-5.1); Sodium 138 mmol/L (137-145); Total Protein 7.4 g/dL (6.3-8.2)
[2021-02-25 12:18] LABS: Prostate Specific Antigen 14.2 ng/mL (0.10-4.00)
== END ==
PROVIDERS: PCP Internal Medicine; Referring Provider Specialist; Visit Provider Specialist
DX: R97.20 Elevated prostate specific antigen [PSA] (principal); Z80.42 Family history of malignant neoplasm of prostate
CPT/HCPCS: 36415; 80053; 84153

== ENCOUNTER → 2021-03-12 17:05 | Outpatient (CLI) | payer MEDICARE, SELFPAY ==
[2020-12-19 10:37] VITALS: BMI 37.5
--- NOTE | 2021-03-12 17:07 | DI.MRI.S_ITS ---
PROCEDURE: MR PELIS WO/W CON INDICATIONS: bph; elevated PSA; LUTS TECHNIQUE: Coronal HASTE, axial T1 FSE with fat saturation, 3-plane nonbreath-hold T2 FSE. After the administration of contrast, dynamic axial, delayed axial and coronal VIBE or 2-D FLASH with fat saturation through the pelvis. Optional diffusion weighted imaging and ADC may be performed. COMPARISON: [facility], CT, CT ABDOMEN PELVIS W CON, 08/20/2020, 18:57. [facility], CT, CT CHEST ABD PEL W CON, 10/19/2020, 18:12. FINDINGS: Image quality: Diffusion weighted and dynamic contrast enhanced images are diagnostic. Prostate: Gland size is 6.6 x 6 x 5.4 cm; ellipsoid gland volume is 111 mL. No intrinsic T1 hyperintensity to suggest hemorrhage. Lesion size(s): Lesion 1: 2.7 x 1.4 cm, (/). Lesion location(s) (sector): Lesion 1: Mid gland peripheral zone left paramedian. Lesion description: Lesion 1: Oval T2 weighted imaging (T2WI) morphology score: Lesion 1: 5 Diffusion weighted imaging (DWI) morphology score: Lesion 1: 5, suspect extraprostatic extension into the proximal seminal vesicles, (33/95). Dynamic contrast enhancement (DCE): Lesion 1: Present Lesion PI-RADS score: Lesion 1: PI-RADS 5 Genitourinary system: Bladder wall thickness is normal. Distal ureters are non distended. Bowel and peritoneum: Diverticulosis. Thickening at the sigmoid colon, (2/8). There is mild enhancement in this region. Restricted diffusion evaluation is limited in this region. Nodes and vessels: Small lymph node adjacent to the right anterior urinary bladder measuring 0.8 cm, (5/9), previously 0.[address] 10/19/2020. Iliac vessels are normal in caliber. Soft tissues: Suspect fat containing right inguinal hernia. Bones: Marrow demonstrates normal overall signal, without lesions to suggest metastases. Anterolisthesis of L5 on S1 measuring 1.4 cm. IMPRESSION: 1. PI-RADS 5 lesion mid gland peripheral zone left paramedian measuring 2.7 cm. High suspicion for proximal seminal vesicle invasion. 2. Small indeterminate lymph node adjacent to the anterior urinary bladder measuring 0.8 cm. 3. Thickening at the sigmoid colon near the site of prior diverticulitis. It is difficult to exclude underlying mass. Diverticulosis. -Recommend colonoscopy if not recently performed. Dictated by: Job Vargas M.D. on 03/13/2021 at 10:47 Approved by: Job Vargas M.D. on 03/13/2021 at 11:09
== END ==
PROVIDERS: PCP Internal Medicine; Referring Provider Specialist; Visit Provider Specialist
DX: N40.1 Benign prostatic hyperplasia with lower urinary tract symptoms (principal); R97.20 Elevated prostate specific antigen [PSA]; N13.8 Other obstructive and reflux uropathy; K57.90 Diverticulosis of intestine, part unspecified, without perforation or abscess without bleeding
CPT/HCPCS: 72197

== ENCOUNTER → 2021-05-29 08:22 | Outpatient (CLI) | payer MEDICARE, SELFPAY ==
[2020-12-19 10:37] VITALS: BMI 37.5
[2021-05-29 09:55] LABS: Blood Urea Nitrogen 28 mg/dL (9-20); Calcium 8.6 mg/dL (8.4-10.2); Carbon Dioxide 28 mmol/L (22-32); Chloride 103 mmol/L (98-107); Estimated Glomerular Filt Rate 57.4 mL/min (>60); Glucose 96 mg/dL (80-110); HEMOLYSIS 31 (0-50); Potassium 4.2 mmol/L (3.4-5.1); Sodium 139 mmol/L (137-145)
== END ==
PROVIDERS: PCP Internal Medicine; Referring Provider Specialist; Visit Provider Specialist
DX: Z01.812 Encounter for preprocedural laboratory examination (principal)
CPT/HCPCS: 36415; 80048

== ENCOUNTER → 2021-06-07 09:05 | Outpatient (CLI) | payer MEDICARE, SELFPAY ==
[2020-12-19 10:37] VITALS: BMI 37.5
--- NOTE | 2021-06-07 09:06 | DI.NM.S_ITS ---
PROCEDURE: NM BONE SCAN WHOLE BODY RADIOPHARMACEUTICAL: 19.1 mCi Tc-99m MDP IV. INDICATIONS: prostate cancer TECHNIQUE: Delayed whole-body scintigrams were obtained approximately 3-4 hours after intravenous injection of radiotracer. Anterior and posterior views were acquired from vertex to feet. Additional left and right oblique views of the lumbar spine were obtained. COMPARISON: [facility], CT, CT CHEST ABD PEL W CON, 06/07/2021, 10:02. FINDINGS: There is left-sided lumbar spine tracer activity at the level of L3 probably related to degenerative changes and paravertebral osteophyte seen on the comparison CT dated same day. Arthritic tracer uptake seen about the knees bilaterally. No definite suspicious tracer activity to suggest osseous metastases. IMPRESSION: Left mid lumbar tracer activity probably related to degenerative paravertebral osteophyte as detailed above. Elsewhere, no suspicious tracer activity seen. Dictated by: Kermit Mckee M.D. on 06/07/2021 at 14:19 Approved by: Kermit Mckee M.D. on 06/07/2021 at 14:24
--- NOTE | 2021-06-07 09:06 | DI.CT.S_ITS ---
PROCEDURE: CT CHEST ABD PEL W CON INDICATIONS: Bladder CA BPH w/ LUTS TECHNIQUE: After the administration of oral and intravenous contrast, axial sections acquired from the supraclavicular neck to the pubic symphysis. Coronal and sagittal reformats were performed. For radiation dose reduction, the following was used: automated exposure control, adjustment of mA and/or kV according to patient size. COMPARISON: [facility], MR, MR PELVIS WO/W CON, 03/12/2021, 17:38. [facility], CT, CT ABDOMEN PELVIS W CON, 08/20/2020, 18:57. [facility], CT, CT CHEST ABD PEL W CON, 10/19/2020, 18:12. FINDINGS: Image quality: Excellent. CHEST: Lower Neck: No enlarged lymph nodes. Thyroid: Within normal limits. Axillae: No enlarged lymph nodes. Chest Wall: Unremarkable. Lungs and Airways: No consolidation or suspicious nodules. Pleura: No pneumothorax or pleural effusions. Heart: Heart size is mildly increased. No pericardial effusion. Oaubifep-hv-cldvom coronary artery calcification. Thoracic Vessels: The aorta and pulmonary arteries demonstrate normal size. Mediastinum and Vivian: No enlarged lymph nodes. Esophagus: No wall thickening. No hiatal hernia. ABDOMEN: Liver: Unremarkable. Gallbladder: There is a calcified gallstone. No gallbladder wall thickening or pericholecystic fluid collection. Biliary ducts: Unremarkable. Pancreas: Unremarkable. Spleen: Unremarkable. Adrenal Glands: Unremarkable. Kidneys and Ureters: Kidneys are normal in size. Bilateral renal cortical thinning. Multiple simple cortical cysts are seen in kidneys bilaterally. No hydronephrosis. Stomach and Bowel: Stomach, small bowel loops, and colon are normal in caliber. There are innumerable colonic diverticula. There is focal thickening in the proximal sigmoid colon. Peritoneum: No abnormal intraperitoneal fluid. No free air. Ventral Wall: No hernia. Abdominal Nodes: No retroperitoneal or mesenteric adenopathy by size criteria. Vessels: Aorta and inferior vena cava are normal in size. PELVIS: Pelvic Organs: Unremarkable. Bladder: Bladder wall thickness is normal. No bladder mass is present. Enlarged prostate. Pelvic Nodes: No enlarged lymph nodes. Miscellaneous: No inguinal hernias are seen. Bones: There is grade 2 anterolisthesis of L5 on S1 secondary to bilateral L5 pars defects. Severe degenerative changes in thoracic and lumbar spine. IMPRESSION: 1. No bladder mass is identified on CT. 2. No findings to suggest metastatic disease. 3. Enlarged prostate. 4. Extensive colonic diverticulosis. There is segmental thickening of proximal sigmoid colon, which may be secondary to diverticulitis. Colonoscopy is suggested for follow-up evaluation as colonic mass could have a similar CT appearance. 5. Cholelithiasis. 6. Bilateral simple appearing renal cysts. There is bilateral renal cortical thinning. 7. Qmmviokq-sb-pxnrbz coronary artery calcification. Dictated by: Dustin Fletcher M.D. on 06/07/2021 at 10:57 Approved by: Dustin Fletcher M.D. on 06/07/2021 at 12:19
== END ==
PROVIDERS: PCP Internal Medicine; Referring Provider Specialist; Visit Provider Specialist
DX: N40.1 Benign prostatic hyperplasia with lower urinary tract symptoms (principal); N13.8 Other obstructive and reflux uropathy; Z85.51 Personal history of malignant neoplasm of bladder; I25.10 Atherosclerotic heart disease of native coronary artery without angina pectoris; N28.1 Cyst of kidney, acquired; M43.17 Spondylolisthesis, lumbosacral region; M47.816 Spondylosis without myelopathy or radiculopathy, lumbar region; M47.814 Spondylosis without myelopathy or radiculopathy, thoracic region; K57.90 Diverticulosis of intestine, part unspecified, without perforation or abscess without bleeding; K80.20 Calculus of gallbladder without cholecystitis without obstruction
CPT/HCPCS: 71260; 74177; 78306; A9503

== ENCOUNTER → 2021-07-05 08:14 | Outpatient (CLI) | payer MEDICARE, SELFPAY ==
[2021-06-12 15:02] VITALS: BMI 37.5
[2021-07-05 10:39] LABS: COVID19 -Nasal RAPID Negative (Negative)
== END ==
PROVIDERS: PCP Internal Medicine; Visit Provider Specialist
DX: Z20.822 Contact with and (suspected) exposure to COVID-19 (principal)
CPT/HCPCS: 87635; C9803

== ENCOUNTER 2021-07-08 06:26 | Day surgery (SDC) | payer MEDICARE, SELFPAY ==
[2021-06-12 15:02] VITALS: BMI 37.5
[2021-07-05 08:49] VITALS: BMI 36.3
[2021-07-08] VITALS (10 sets, daily range): BP systolic 140–159; BP diastolic 60–78; PULSE 53–70; RESP 12–23; TEMP 35.8–36.3; O2SAT 93–99; BMI 36.3
--- NOTE | 2021-07-08 | PATH_ITS ---
[facility] Accession Number: [id number] . 01 Material submitted: . bladder - PROSTATE/BLADDER NECK . 01 Clinical history: . PATIENT W/ HISTORY OF HIGH GRADE PROSTATE CANCER AND HIGH GRADE BLADDER CANCER. PT ALSO ON ANDROGEN DEPRIVATION THERAPY. . 01 Diagnosis: Prostate/Bladder Neck, Biopsy: Low-grade papillary urothelial carcinoma, noninvasive, with focal extension into prostatic ducts. - Negative for stromal or lymphovascular invasion. [facility] 07/11/2021 1554 Local . 01 Electronically signed: . Zena Mccauley MD, Pathologist NPI- [id number] . 01 Gross description: . The specimen is received in formalin, labeled prostate/bladder neck and consists of multiple ramires fragments of soft tissue weighing 2 grams and measuring 2.0 x 1.5 x 0.5 cm in aggregate. The specimen is entirely submitted in cassette A1. ([id number]) /MRV 07/09/2021 1029 Local . 01 Pathologist provided ICD-10: D49.4 . 01 CPT . 988436 Performed at: 01 [facility] [address] [place] [address], [place], [place] [id number] MD Stephane Rivas MD Phone: [phone]
--- NOTE | 2021-07-08 07:27 | PM.PREOP ---
Pre-operative Note Interval Note History & Physical reviewed/Exam performed by Physician: Yes Changes to H&P: No
[2021-07-08] MEDS: LACTATED RINGERS 1,000 ML 42 ML IV (07:44)
[2021-07-08] MEDS: BELLADONNA/OPIUM SUPPOSITORIES 1 EACH PR (07:44)
[2021-07-08] MEDS: CEFAZOLIN 1 GM VIAL 2 GM IV (08:05)
--- NOTE | 2021-07-08 08:13 | SUR.OPER ---
Lithotomy on padded OR bed, head on pillow, arms secured on padded arm boards at <90 degrees abduction. Legs secured in padded yellow fins stirrups.
--- NOTE | 2021-07-08 08:16 | SUR.OPER ---
Reddened open skin tears in folds of bilateral groin. right side worse than left. Dr. Dasilva notified before the beginning of the case.
--- NOTE | 2021-07-08 08:34 | PM.OP.1 ---
Operative Date/Time/Diagnoses Date of procedure: 07/08/21 Time of procedure: 08:35 Pre-op diagnosis: 1. Neoplasm prostate and bladder neck urothelium. 2. History of high-grade urothelial carcinoma the bladder. 3. History of high-grade adenocarcinoma the prostate. 4. Androgen deprivation therapy. Post-op diagnosis: same Procedure & Clinicians Procedure: 1. Transurethral resection of bladder (bladder neck)-0.5-2 cm 2. Transurethral resection of prostate Same procedure as scheduled: Yes Indications: 1. Neoplasm of bladder neck and prostate urothelium. 2. History of high-grade urothelial carcinoma the bladder. 3. History of high-grade adenocarcinoma the prostate. 4. Androgen deprivation therapy. Surgeon: Mahendra Dasilva Click Yes if Unassisted: Yes Anesthesia Type: General Operative Notes Findings: 1. Urethra-normal caliber without annular stricture or lesion. 2. External sphincter-coapted with normal overlying urothelium. 3. Prostate-4.5 cm length with obstructing trilobar hyperplasia. There is spreading papillary changes to the urothelium of the median lobe of the prostate and right bladder neck. 4. Bladder-2+ trabeculation. Normal ureteral orifices bilaterally. Findings at bladder neck as described above. Closure Type: not applicable Specimen(s): other (Right bladder neck and prostate median lobe tissue.) Applied: catheter (Twenty-two Yoruba silicone [address] Dean catheter.) Estimated Blood Loss (mL): 1 Blood products transfused: none Procedure in detail: The patient was positioned supine was administered general anesthesia. He was then repositioned in semi lithotomy and the lower abdomen, groin, and genitalia were then prepped and draped in sterile fashion. The resectoscope was then introduced into the urethra and advanced proximally with the findings as described above. The resectoscope was then fitted with the resection loop in TUR resection of a portion of the median lobe of the prostate and the right bladder neck was then undertaken. All resected tissue was then recovered and submitted to pathology for routine gross and microscopic examination. Hemostasis was attained with the electric cautery. The bladder was left partially filled and the resectoscope was removed. A [address] Dean catheter was inserted in the bladder the balloon was filled to 10 cc and placed to gravity drainage. The patient was repositioned in supine, was awakened, and transferred [facility] to PACU. Complications: none Post-operative Condition: stable Disposition: PACU Plan for aftercare: Discharge home.
[2021-07-08] MEDS: fentaNYL 100 MCG/2 ML INJ IV ×2 (09:03→09:12)
[2021-07-08] MEDS: ACETAMINOPHEN 325 MG TABLET 650 MG PO (09:18)
[2021-07-08] MEDS: OXYCODONE IR 5 MG TABLET PO ×2 (09:19→11:24)
--- NOTE | 2021-07-08 09:56 | SUR.PHASEII ---
Desires to rest prior to discharge, applesauce and juice given
--- NOTE | 2021-07-08 09:58 | SUR.PHASEI ---
Patient transferred to OPD bay 4. SBAR report at bedside to Nurys HEALY. Call light in reach, bed in low position.
== END 2021-07-08 11:35 | disposition home or self-care (01) ==
PROVIDERS: PCP Internal Medicine; Referring Provider Specialist; Visit Provider Specialist
PROC: 0TBC8ZZ Excision of Bladder Neck, Via Natural or Artificial Opening Endoscopic (ICD-10-PCS; CPT 52500; principal; 2021-07-08 07:45)
DX: C67.5 Malignant neoplasm of bladder neck (principal); C61 Malignant neoplasm of prostate; N13.8 Other obstructive and reflux uropathy; N32.89 Other specified disorders of bladder; E11.9 Type 2 diabetes mellitus without complications; I10 Essential (primary) hypertension; E78.5 Hyperlipidemia, unspecified; K21.9 Gastro-esophageal reflux disease without esophagitis; J45.909 Unspecified asthma, uncomplicated; I48.92 Unspecified atrial flutter; Z79.01 Long term (current) use of anticoagulants; Z80.42 Family history of malignant neoplasm of prostate
CPT/HCPCS: 52601; 82962; J0690; J2405; J2704; J3010

== ENCOUNTER → 2021-07-17 14:54 | Outpatient (CLI) | payer MEDICARE, SELFPAY ==
[2021-07-17 10:13] VITALS: BMI 37.5
[2021-07-17 15:04] LABS: Appearance Urine UA CLEAR; Bilirubin Urine UA NEGATIVE (NEGATIVE); Color Urine UA YELLOW; Glucose Urine UA NEGATIVE (Negative); Ketones Urine UA NEGATIVE (NEGATIVE); Leukocyte Esterase Urine UA NEGATIVE (NEGATIVE); Nitrite Urine UA NEGATIVE (Negative); Occult Blood Urine UA 3+ (Negative); Protein Urine UA TRACE (Negative); Urobilinogen Urine UA 0.2 E.U./dL (0.2)
[2021-07-17 15:10] LABS: Bacteria Urine None Seen; Culture Indicated Urine Cult Not Indicated; RBC Urine 30-100/HPF (0-5/HPF); WBC Urine 0-1/HPF (0-5/HPF)
== END ==
PROVIDERS: PCP Internal Medicine; Visit Provider Specialist
DX: N39.0 Urinary tract infection, site not specified (principal); R30.0 Dysuria
CPT/HCPCS: 51798; 81001; 81002

== ENCOUNTER → 2021-07-26 07:48 | Outpatient (CLI) | payer MEDICARE, SELFPAY ==
[2021-07-17 10:13] VITALS: BMI 37.5
[2021-07-26 09:10] LABS: Alanine Aminotransferase 18 IU/L (<50); Albumin Globulin Ratio 1.3 (1.0-2.8); Alkaline Phosphatase 79 U/L (38-126); Aspartate Aminotransferase 23 IU/L (17-59); BUN Creatinine Ratio 23.1 (6-22); Bilirubin Total 0.3 mg/dL (0.2-1.3); Blood Urea Nitrogen 27 mg/dL (9-20); Carbon Dioxide 33 mmol/L (22-32); Chloride 101 mmol/L (98-107); Estimated Glomerular Filt Rate > 60.0 mL/min (>60); Glucose 104 mg/dL (80-110); HEMOLYSIS < 15 (0-50); Potassium 3.9 mmol/L (3.4-5.1); Sodium 139 mmol/L (137-145)
[2021-07-26 09:34] LABS: Free T3, Triiodothyronine Free 3.51 pg/mL (2.77-5.27); Free T4, Direct Thyroxine 1.33 ng/dL (0.78-2.19)
[2021-07-26 09:49] LABS: Prostate Specific Antigen 2.43 ng/mL (0.10-4.00)
== END ==
PROVIDERS: Specialist; PCP Internal Medicine; Referring Provider Physician Assistant; Visit Provider Physician Assistant
DX: C61 Malignant neoplasm of prostate (principal); I48.0 Paroxysmal atrial fibrillation; E03.9 Hypothyroidism, unspecified; R97.20 Elevated prostate specific antigen [PSA]; R30.0 Dysuria
CPT/HCPCS: 36415; 80053; 81001; 84153; 84439; 84443; 84481; 87086

== ENCOUNTER → 2021-07-26 12:58 | Outpatient (CLI) | payer MEDICARE, SELFPAY ==
[2021-07-17 10:13] VITALS: BMI 37.5
[2021-07-26 13:46] LABS: Appearance Urine UA CLEAR; Bilirubin Urine UA NEGATIVE (NEGATIVE); Color Urine UA YELLOW; Glucose Urine UA NEGATIVE (Negative); Ketones Urine UA NEGATIVE (NEGATIVE); Leukocyte Esterase Urine UA NEGATIVE (NEGATIVE); Nitrite Urine UA NEGATIVE (Negative); Occult Blood Urine UA 3+ (Negative); Protein Urine UA 1+ (Negative); Specific Gravity Urine UA 1.015 (1.000-1.035); Urobilinogen Urine UA 0.2 E.U./dL (0.2); pH Urine UA 5.5 (4.5-8.0)
[2021-07-26 13:59] LABS: Amorphous Sediment Urine 1+; RBC Urine >100/HPF (0-5/HPF); WBC Urine 0-1/HPF (0-5/HPF)
[2021-07-26 14:00] LABS: Bacteria Urine None Seen; Culture Indicated Urine Specimen Cultured
== END ==
PROVIDERS: PCP Internal Medicine; Referring Provider Specialist; Visit Provider Specialist
DX: R30.0 Dysuria (principal)
CPT/HCPCS: 81001; 87086

== ENCOUNTER → 2021-08-01 16:28 | Outpatient (CLI) | payer MEDICARE, SELFPAY ==
[2021-07-17 10:13] VITALS: BMI 37.5
[2021-08-01 17:11] LABS: Appearance Urine UA CLEAR; Bilirubin Urine UA NEGATIVE (NEGATIVE); Color Urine UA YELLOW; Glucose Urine UA NEGATIVE (Negative); Ketones Urine UA NEGATIVE (NEGATIVE); Leukocyte Esterase Urine UA TRACE (NEGATIVE); Nitrite Urine UA NEGATIVE (Negative); Occult Blood Urine UA 3+ (Negative); Protein Urine UA TRACE (Negative); Urobilinogen Urine UA 0.2 E.U./dL (0.2)
[2021-08-01 17:22] LABS: RBC Urine 30-100/HPF (0-5/HPF); Squamous Epithelial Cell Urine 0-1 /HPF (0-5/HPF); WBC Urine 1-5/HPF (0-5/HPF)
[2021-08-01 17:23] LABS: Bacteria Urine Occasional (0-1); Culture Indicated Urine Specimen Cultured
== END ==
PROVIDERS: PCP Internal Medicine; Referring Provider Specialist; Visit Provider Specialist
DX: C61 Malignant neoplasm of prostate (principal); N39.0 Urinary tract infection, site not specified; R33.9 Retention of urine, unspecified; N13.8 Other obstructive and reflux uropathy; Z85.51 Personal history of malignant neoplasm of bladder; Z80.42 Family history of malignant neoplasm of prostate
CPT/HCPCS: 81001; 87077; 87086; 87186; 99215

== ENCOUNTER 2021-08-12 10:23 | Emergency (ER) | payer MEDICARE, SELFPAY ==
[2021-07-17 10:13] VITALS: BMI 37.5
[2021-08-12 10:46] VITALS: BP 156/65; PULSE 71; RESP 16; TEMP 36.9; O2SAT 95; BMI 35.2
[2021-08-12 11:29] LABS: Appearance Urine UA CLEAR; Bilirubin Urine UA NEGATIVE (NEGATIVE); Color Urine UA YELLOW; Glucose Urine UA NEGATIVE (Negative); Ketones Urine UA NEGATIVE (NEGATIVE); Leukocyte Esterase Urine UA 1+ (NEGATIVE); Nitrite Urine UA NEGATIVE (Negative); Occult Blood Urine UA 3+ (Negative); Protein Urine UA 2+ (Negative); Specific Gravity Urine UA 1.015 (1.000-1.035); Urobilinogen Urine UA 0.2 E.U./dL (0.2)
--- NOTE | 2021-08-12 11:41 | ED.MALEGU ---
HPI - Male Genitourinary General Chief complaint: Urogenital-Male Stated complaint: bladder infection Time Seen by Provider: 08/12/21 11:39 Source: patient Mode of arrival: Ambulatory History of Present Illness HPI Narrative: 76-year-old male nonsmoker with history of bladder cancer, prostatitis hypertension presents with his in the chief complaint of ongoing urinary complaints despite treatment for a bladder infection. He has had ongoing dysuria, frequency and urgency and generally feels unwell. He has been taking antibiotics as prescribed by his urologist and when he called their office today they directed him here to us. He has had no fever chills. He denies chest pain or shortness of breath. He denies nausea, vomiting or diarrhea. Related Data Home Medications Medication Instructions Recorded Confirmed magnesium oxide 400 mg (241.3 mg 1 tab PO Q DAY #0 07/31/16 08/01/21 magnesium) tablet amiodarone 200 mg tablet 100 mg PO QPM 04/18/19 08/12/21 liothyronine 5 mcg tablet 10 mcg PO DAILY tab 04/18/19 08/12/21 rivaroxaban 20 mg tablet (Xarelto) 20 mg PO QPM 04/18/19 08/12/21 levothyroxine 75 mcg capsule 75 mcg PO DAILY 01/12/20 08/12/21 metoprolol succinate 25 mg 12.5 mg PO BEDTIME 01/12/20 08/12/21 tablet,extended release 24 hr tamsulosin 0.4 mg capsule (Flomax) 0.8 mg PO QPM 10/19/20 08/12/21 Previous Rx's Medication Instructions Recorded lovastatin 40 mg tablet 40 mg PO Q DAY #90 tab 03/04/17 omeprazole 20 mg capsule,delayed 20 mg PO QDAY #90 cap 03/04/17 release potassium chloride 20 mEq 20 meq PO AMCC #90 tab 05/27/17 tablet,extended release(part/cryst) (Klor-Con M) enalapril maleate 5 mg tablet 5 mg PO QDAY #90 tab 08/03/17 blood sugar diagnostic (True #100 each 04/23/18 Metrix Glucose Test Strip) finasteride 5 mg tablet 5 mg PO DAILY #90 tab 03/06/21 bicalutamide 50 mg tablet 50 mg PO DAILY #30 tab 08/25/21 doxycycline hyclate 100 mg capsule 100 mg PO BID #20 cap 08/05/21 sulfamethoxazole 800 1 tab PO BID 10 Days #20 tab 08/12/21 mg-trimethoprim 160 mg tablet (Bactrim DS) Allergies Allergy/AdvReac Type Severity Reaction Status Date / Time latex Allergy Verified 08/12/21 10:50 Review of Systems Review of Systems Narrative: GENERAL: See HPI. HEENT: Denies sinus pain, ear pain, sore throat, difficulty swallowing, dizziness. RESPIRATORY: Denies dyspnea, cough, wheezing, hemoptysis, sputum. CARDIOVASCULAR: Denies chest pain, palpitations, orthopnea, edema, GASTROINTESTINAL: Denies nausea, vomiting, abdominal pain, diarrhea, constipation, melena. : See HPI MUSCULOSKELETAL: denies weakness, joint pain, or bony pain SKIN: Denies rash, skin lesions, or other NEUROLOGIC: Denies weakness, headache, numbness, change in speech, confusion, seizures, incoordination. PSYCHIATRIC: No concerning psychosocial issues. 12 point review of systems is negative except for those stated above Patient History Medical History Asthma (11/04/11) Atrial flutter (03/20/17) Benign prostatic hyperplasia (11/04/11) Body mass index (BMI) of 30.0 to 39.9 (10/27/11) BPH w urinary obs/LUTS Controlled type 2 diabetes mellitus (10/03/16) Diabetes Diverticulosis of sigmoid colon (03/20/17) Elevated PSA Elevated PSA Essential hypertension (10/27/11) Family history of prostate cancer Gastroesophageal reflux disease (03/01/14) History of primary bladder cancer HLD (hyperlipidemia) Hyperlipidemia (10/27/11) Hypothyroid Malignant neoplasm of urinary bladder (10/11/16) Melena Mild cognitive impairment Neoplasm of uncertain behavior of bladder Osteoarthritis Persistent atrial fibrillation Prostate cancer RBBB plus LA hemiblock Tubular adenoma of colon (03/20/17) Surgical History History of appendectomy History of cardiac radiofrequency ablation History of cystoscopy History of knee surgery Hx of rotator cuff surgery Family History Father CAD (coronary artery disease) Hyperlipidemia Hypertension Hearing impairment Mother CAD (coronary artery disease) Hypertension Hyperlipidemia Cancer Social History marital status: household members: spouse occupational status: previously employed Smoking Status: Never smoker alcohol intake: never substance use type: does not use caffeine: Yes Smoking Status: Never smoker alcohol intake frequency: other Substance Use Type: does not use Exam Narrative Exam Narrative: GENERAL: [68 year old patient appears stated age. Well-developed patient, in mild distress. HEAD: Atraumatic. Normocephalic. EYES: Pupils equal round and reactive. Extraocular motions intact. No scleral icterus. No injection or drainage. ENT: Nose without bleeding, purulent drainage. Throat without erythema, tonsillar hypertrophy or exudate. Airway patent. NECK: Trachea midline. Non tender CARDIOVASCULAR: Regular rate and rhythm without murmurs, gallops, or rubs. RESPIRATORY: Clear to auscultation. Breath sounds equal bilaterally. No wheezes, rales, or rhonchi. GASTROINTESTINAL: Abdomen soft, non-tender, nondistended. EXTREMITIES: No edema or joint tenderness. BACK: Minor left flank pain to palpation. NEURO: AOx3. SKIN: No rash or erythema of visible areas Initial Vital Signs Initial Vital Signs: Vital Signs Temperature 98.4 F 08/12/21 10:46 Pulse Rate 71 08/12/21 10:46 Respiratory Rate 16 08/12/21 10:46 Blood Pressure 156/65 H 08/12/21 10:46 Pulse Oximetry 95 08/12/21 10:46 Course Orders Ordered: ED Orders 08/12/21 10:45 Urinalysis and Microscopic Stat Urine Culture Stat 08/12/21 12:14 US renal complete Stat 08/12/21 13:25 Basic Metabolic Panel Stat Complete Blood Count AUTO DIFF Stat Vital Signs Vital signs: Vital Signs - 8 hr 08/12/21 10:46 Temperature 98.4 F Pulse Rate 71 Respiratory Rate 16 Blood Pressure 156/65 H Pulse Oximetry 95 MDM - Male Genitourinary Lab Data Result diagrams: 08/12/21 13:25 08/12/21 13:25 Labs: Lab Results 08/12/21 08/12/21 08/12/21 Range/Units 10:45 13:25 13:25 WBC 6.7 (4.5-11.0) X10^3/uL RBC 3.79 L (4.5-5.9) X10^6/uL Hgb 11.3 L (13.5-17.5) g/dL Hct 33.5 L (41-53) % MCV 88.4 (80-100) fL MCH 29.7 (26-34) PG MCHC 33.7 (30-36) % RDW 13.9 (11.6-14.8) % Plt Count 211 (150-400) X10^3/uL Neut % (Auto) 72.7 (50-75) % Lymph % (Auto) 11.5 L (25-40) % [place] % (Auto) 13.8 (3-14) % Eos % (Auto) 1.3 L (2-4) % Baso % (Auto) 0.7 (0-2) % Neut # (Auto) 4900 (6045-6726) /uL Lymph # (Auto) 800 L (2873-9856) /uL [place] # (Auto) 900 (0-900) /uL Eos # (Auto) 100 (0-450) /uL Baso # (Auto) 0 (0-100) /uL Sodium 138 (137-145) mmol/L Potassium 4.1 (3.4-5.1) mmol/L Chloride 101 (98-107) mmol/L Carbon Dioxide 29 (22-32) mmol/L BUN 26 H (9-20) mg/dL Creatinine 1.12 (0.66-1.25) mg/dL Estimated GFR > 60.0 (>60) mL/min BUN/Creatinine Ratio 23.2 H (6-22) Glucose 96 (80-110) mg/dL Calcium 9.2 (8.4-10.2) mg/dL Urine Color Yellow Urine Appearance Clear Urine pH 5.0 (4.5-8.0) Ur Specific Amanda 1.015 (1.000-1.035) Urine Protein 2+ H (Negative) Urine Glucose (UA) Negative (Negative) g/dL Urine Ketones Negative (NEGATIVE) Urine Occult Blood 3+ H (Negative) Urine Nitrate Negative (Negative) Urine Bilirubin Negative (NEGATIVE) Urine Urobilinogen 0.2 (0.2) E.U./dL Ur Leukocyte Esterase 1+ H (NEGATIVE) Urine RBC 10-30/hpf H (0-5/HPF) Urine WBC 5-10/hpf H (0-5/HPF) Amorphous Sediment 2+ Urine Bacteria None seen (None) Ur Culture Indicated? Specimen cultured Imaging Data Renal US: Radiologist's Impression: [address] [address] Ultrasound Report Signed Patient: Leandro Allen MR#: [id number] : 1945 Acct:[id number] Age/Sex: 76 / M Date of Service: 08/12/21 Loc: ED Accession Number: [id number] ?? Procedure: US renal complete Ordering Provider: Jon Elliott D.O. PROCEDURE:? US RENAL COMPLETE ? INDICATIONS:? FLANK PAIN AND HEMATURIA ? TECHNIQUE:? Real-time scanning was performed of the kidneys and bladder, with image documentation.? ? COMPARISON:? None. ? FINDINGS:? ? Kidneys:? Kidneys are normal in size.? Right kidney measures 9.8 cm long; left kidney measures 12.5 cm long.? Right renal cortical thickness is 1.3 cm; left renal cortical thickness is 1.6 cm.? Renal cortical echotexture is normal.? No hydronephrosis or nephrolithiasis.? No suspicious solid mass lesions.? A 7.8 x 6.9 x 6.8 cm, right hypoechoic lesion is seen, most consistent with a cyst.? A 6.4 x 5.9 x 5 cm, left hypoechoic lesion is seen, compatible with a cyst. ? Bladder:? Pre-void bladder volume is 185 mL.? Post-void residual is 195 mL.? Pre-void images demonstrate no intraluminal masses or stones.? On pre-void images, bilateral ureteral jets are noted with color Doppler interrogation.? The irregularity of the urinary bladder wall is seen. ? Miscellaneous:? No free pelvic fluid.? The prostate measures 4.7 x 3.3 x 2.7 cm. ? IMPRESSION:? 1. No evidence of obstructive uropathy. 2. Irregularity of the urinary bladder wall, which may reflect trabeculation.? Consider cross-sectional imaging or cystoscopy. 3.? Bilateral , large simple appearing renal cysts.? ? Dictated by: Sukhi Su M.D. on 08/12/2021 at 13:41 ? ? Approved by: Sukhi Su M.D. on 08/12/2021 at 13:53 ? MDM Narrative Medical decision making narrative: Patient with hematuria and flank pain. He has recurrent UTI and is currently taking doxycycline for his urine infection. He states his symptoms have been slowly worsening. He denies any fever or chills. He denies nausea or vomiting but has dysuria, frequency, urgency and others as stated. Labs are very reassuring, renal ultrasound suggests against any obstructive uropathy. Urine culture was consulted and antibiotics switched to another that is likely to be effective. Discharge Plan Departure Patient Disposition: Home Clinical Impression: Acute flank pain, Acute UTI Instructions: DI for Urinary Tract Infection (UTI) Activity Restrictions/Additional Instructions: *You have been diagnosed with [ongoing urinary tract infection and left-sided flank pain. *What to do: *Please continue to take your regular medications as directed. [x ] New medication prescriptions sent to your pharmacy: [ ] [ ] New medication written as a paper prescription [ ] No new medications given *Please follow up with your primary care provider in 2-3 days, call for an appointment. Let them know you were seen in the Emergency Department and that we ask that you be seen in follow up. We will electronically transmit a record of today's note if your PCP is in our system *If you do not have a primary care provider please contact the [facility] Resource line at [phone]. They will ask some questions about your medical history and help get you set up with a doctor in the community. *Return to Emergency Department if you should have any new, worsening or concerning symptoms, such as [fever greater than 101 F, shaking chills, worsening pain, persistent vomiting or other bothersome symptoms] Prescriptions: New sulfamethoxazole-trimethoprim [Bactrim DS] 800-160 mg tablet 1 tab PO BID 10 Days Qty: 20 RF: 0 No Action magnesium oxide 400 MG tablet 1 tab PO Q DAY Qty: 0 RF: 0 lovastatin 40 MG tablet 40 mg PO Q DAY Qty: 90 RF: 3 omeprazole 20 MG capsule,delayed release(DR/EC) 20 mg PO QDAY Qty: 90 RF: 3 potassium chloride [Klor-Con M20] 20 MEQ tablet,ER particles/crystals 20 meq PO AMCC Qty: 90 RF: 0 enalapril maleate 5 MG tablet 5 mg PO QDAY Qty: 90 RF: 1 (DME) blood sugar diagnostic [True Metrix Glucose Test Strip] strip See Dose Instructions .ROUTE .MEDSUPPLY Qty: 100 RF: 4 doxycycline hyclate 100 mg capsule 100 mg PO BID Qty: 20 RF: 0 metoprolol succinate 25 mg Tablet Extended Release 24 Hr 12.5 mg PO BEDTIME RF: 0 levothyroxine 75 mcg Capsule 75 mcg PO DAILY RF: 0 tamsulosin [Flomax] 0.4 MG capsule 0.8 mg PO QPM RF: 0 amiodarone 200 mg tablet 100 mg PO QPM RF: 0 liothyronine 5 mcg tablet 10 mcg PO DAILY RF: 0 Xarelto 20 mg tablet 20 mg PO QPM RF: 0 finasteride 5 mg tablet 5 mg PO DAILY Qty: 90 RF: 3 bicalutamide 50 mg tablet 50 mg PO DAILY Qty: 30 RF: 0 Referrals: Robbie Mccullough MD [Primary Care Provider] -
[2021-08-12 11:49] LABS: Amorphous Sediment Urine 2+; Bacteria Urine None Seen; Culture Indicated Urine Specimen Cultured; RBC Urine 10-30/HPF (0-5/HPF); WBC Urine 5-10/HPF (0-5/HPF)
--- NOTE | 2021-08-12 12:14 | DI.US.S_ITS ---
PROCEDURE: US RENAL COMPLETE INDICATIONS: FLANK PAIN AND HEMATURIA TECHNIQUE: Real-time scanning was performed of the kidneys and bladder, with image documentation. COMPARISON: None. FINDINGS: Kidneys: Kidneys are normal in size. Right kidney measures 9.8 cm long; left kidney measures 12.5 cm long. Right renal cortical thickness is 1.3 cm; left renal cortical thickness is 1.6 cm. Renal cortical echotexture is normal. No hydronephrosis or nephrolithiasis. No suspicious solid mass lesions. A 7.8 x 6.9 x 6.8 cm, right hypoechoic lesion is seen, most consistent with a cyst. A 6.4 x 5.9 x 5 cm, left hypoechoic lesion is seen, compatible with a cyst. Bladder: Pre-void bladder volume is 185 mL. Post-void residual is 195 mL. Pre-void images demonstrate no intraluminal masses or stones. On pre-void images, bilateral ureteral jets are noted with color Doppler interrogation. The irregularity of the urinary bladder wall is seen. Miscellaneous: No free pelvic fluid. The prostate measures 4.7 x 3.3 x 2.7 cm. IMPRESSION: 1. No evidence of obstructive uropathy. 2. Irregularity of the urinary bladder wall, which may reflect trabeculation. Consider cross-sectional imaging or cystoscopy. 3. Bilateral , large simple appearing renal cysts. Dictated by: Sukhi Su M.D. on 08/12/2021 at 13:41 Approved by: Sukhi Su M.D. on 08/12/2021 at 13:53
[2021-08-12 13:33] LABS: Add Manual Diff / Slide Review NO; Basophils Absolute Auto 0 /uL (0-100); Basophils Percent Auto 0.7 % (0-2); Eosinophils Absolute Auto 100 /uL (0-450); Eosinophils Percent Auto 1.3 % (2-4); Hematocrit 33.5 % (41-53); Hemoglobin 11.3 g/dL (13.5-17.5); Lymphocytes Absolute Auto 800 /uL (1100-4500); Lymphocytes Percent Auto 11.5 % (25-40); Mean Corpuscular HGB Conc 33.7 % (30-36); Mean Corpuscular Hemoglobin 29.7 PG (26-34); Mean Corpuscular Volume 88.4 fL (80-100); Monocytes Absolute Auto 900 /uL (0-900); Monocytes Percent Auto 13.8 % (3-14); Neutrophils Absolute Auto 4900 /uL (1500-7000); Neutrophils Percent Auto 72.7 % (50-75); Platelet Count 211 X10^3/uL (150-400); Red Blood Cell Count 3.79 X10^6/uL (4.5-5.9); Red Cell Distribution Width 13.9 % (11.6-14.8); White Blood Cell Count 6.7 X10^3/uL (4.5-11.0)
[2021-08-12 13:48] LABS: BUN Creatinine Ratio 23.2 (6-22); Blood Urea Nitrogen 26 mg/dL (9-20); Calcium 9.2 mg/dL (8.4-10.2); Carbon Dioxide 29 mmol/L (22-32); Chloride 101 mmol/L (98-107); Estimated Glomerular Filt Rate > 60.0 mL/min (>60); Glucose 96 mg/dL (80-110); HEMOLYSIS < 15 (0-50); Potassium 4.1 mmol/L (3.4-5.1); Sodium 138 mmol/L (137-145)
[2021-08-12 14:32] VITALS: BP 169/78; PULSE 58; RESP 16; O2SAT 99
== END 2021-08-12 14:39 | disposition home or self-care (01) ==
PROVIDERS: Emergency Provider Emergency Medicine; PCP Internal Medicine
DX: R10.9 Unspecified abdominal pain (principal); N39.0 Urinary tract infection, site not specified
CPT/HCPCS: 36415; 76770; 80048; 81001; 85025; 87086; 99283; 99284

== ENCOUNTER 2021-08-14 11:10 | Emergency (ER) | payer MEDICARE, SELFPAY ==
[2021-07-17 10:13] VITALS: BMI 37.5
[2021-08-14 11:23] VITALS: BP 151/67; PULSE 68; RESP 16; TEMP 36.7; O2SAT 97; BMI 35.4
--- NOTE | 2021-08-14 12:30 | PC.NURSE ---
At this time pt is not interested in moving forward with a medical workup beyond giving urine sample. Will allow for bladder scan. He is resistant to having blood work done today, as it was just completed a few days ago. He is here today because he was unable to reach urology and needs further medical followup. Provider aware and will attempt to reach urology during this stay.
[2021-08-14 12:45] LABS: Appearance Urine UA CLOUDY; Bilirubin Urine UA NEGATIVE (NEGATIVE); Color Urine UA RED; Glucose Urine UA NEGATIVE (Negative); Ketones Urine UA NEGATIVE (NEGATIVE); Leukocyte Esterase Urine UA NEGATIVE (NEGATIVE); Nitrite Urine UA NEGATIVE (Negative); Occult Blood Urine UA 3+ (Negative); Protein Urine UA 2+ (Negative); Urobilinogen Urine UA 0.2 E.U./dL (0.2)
[2021-08-14 12:53] LABS: RBC Urine >100/HPF (0-5/HPF)
[2021-08-14 12:54] LABS: Bacteria Urine None Seen; Squamous Epithelial Cell Urine None Seen (0-5/HPF)
[2021-08-14 12:55] LABS: Amorphous Sediment Urine 2+; Culture Indicated Urine Cult Not Indicated; WBC Urine 1-5/HPF (0-5/HPF)
--- NOTE | 2021-08-14 13:20 | ED.MALEGU ---
HPI - Male Genitourinary <Kellee Felix [facility] - Last Filed: 08/14/21 19:15> General Chief complaint: Urogenital-Male Stated complaint: Blood in urine Time Seen by Provider: 08/14/21 12:00 Source: patient Mode of arrival: Family Vehicle Limitations: no limitations History of Present Illness HPI Narrative: 76-year-old male nonsmoker on Xarelto with history of bladder cancer, prostatitis, BPH, prostate cancer, andhypertension presents with his with the chief complaint of ongoing hematuria despite treatment for a bladder infection.? He has had ongoing dysuria, frequency , dribbling, and urgency.? He has been taking Bactrim after his emergency department visit 2 days ago for this same complaints, he previously completed a course of doxycycline. he was told to follow-up with urology after his emergency department visit and he states he called the office twice yesterday to be seen yesterday and nobody called him back so he came into the emergency department.? He has had no fever or chills, denies chest pain or shortness of breath, denies nausea, vomiting or diarrhea. He reports having no new symptoms. He denies dizziness, lightheadedness, syncope, urinating rhett blood. He reports having a procedure 3 weeks ago which on review of old records appears to have had a lesion removed in the bladder neck. He stopped taking his Xarelto prior to his procedure, restarted taking it 3 days afterwards, took vitamin K for 3 days pre op and date of procedure. He takes 20 mg of Xarelto Q.h.s., and has had hypercoagulable episodes in the past and had to stop taking his Xarelto before. He denies any back pain, suprapubic pain, abdominal pain or other. Patient denies wanting any blood work done today or any further workup, he states everything that was done 2 days ago is all anyone. He denies any new symptoms or any changes since this visit. Related Data Home Medications Medication Instructions Recorded Confirmed magnesium oxide 400 mg (241.3 mg 1 tab PO Q DAY #0 07/31/16 08/01/21 magnesium) tablet amiodarone 200 mg tablet 100 mg PO QPM 04/18/19 08/12/21 liothyronine 5 mcg tablet 10 mcg PO DAILY tab 04/18/19 08/12/21 rivaroxaban 20 mg tablet (Xarelto) 20 mg PO QPM 04/18/19 08/12/21 levothyroxine 75 mcg capsule 75 mcg PO DAILY 01/12/20 08/12/21 metoprolol succinate 25 mg 12.5 mg PO BEDTIME 01/12/20 08/12/21 tablet,extended release 24 hr tamsulosin 0.4 mg capsule (Flomax) 0.8 mg PO QPM 10/19/20 08/12/21 Previous Rx's Medication Instructions Recorded lovastatin 40 mg tablet 40 mg PO Q DAY #90 tab 03/04/17 omeprazole 20 mg capsule,delayed 20 mg PO QDAY #90 cap 03/04/17 release potassium chloride 20 mEq 20 meq PO AMCC #90 tab 05/27/17 tablet,extended release(part/cryst) (Klor-Con M) enalapril maleate 5 mg tablet 5 mg PO QDAY #90 tab 08/03/17 blood sugar diagnostic (True #100 each 04/23/18 Metrix Glucose Test Strip) finasteride 5 mg tablet 5 mg PO DAILY #90 tab 03/06/21 bicalutamide 50 mg tablet 50 mg PO DAILY #30 tab 06/12/21 doxycycline hyclate 100 mg capsule 100 mg PO BID #20 cap 08/05/21 sulfamethoxazole 800 1 tab PO BID 10 Days #20 tab 08/12/21 mg-trimethoprim 160 mg tablet (Bactrim DS) Allergies Allergy/AdvReac Type Severity Reaction Status Date / Time latex Allergy Verified 08/14/21 11:27 Review of Systems <Kellee Felix [employer] - Last Filed: 08/14/21 19:15> Review of Systems Narrative: Narrative: GENERAL:? See HPI. HEENT: Denies sinus pain, ear pain, sore throat, difficulty swallowing, dizziness. RESPIRATORY: Denies dyspnea, cough, wheezing, hemoptysis, sputum. CARDIOVASCULAR: Denies chest pain, palpitations, orthopnea, edema, GASTROINTESTINAL: Denies nausea, vomiting, abdominal pain, diarrhea, constipation, melena. :? See HPI, hematuria MUSCULOSKELETAL: denies weakness, joint pain, or bony pain SKIN: Denies rash, skin lesions, or other NEUROLOGIC: Denies weakness, headache, numbness, change in speech, confusion, seizures, incoordination. PSYCHIATRIC: No concerning psychosocial issues. Patient History <GUALBERTO Armenta - Last Filed: 08/14/21 19:15> Medical History Asthma (11/04/11) Atrial flutter (03/20/17) Benign prostatic hyperplasia (11/04/11) Body mass index (BMI) of 30.0 to 39.9 (10/27/11) BPH w urinary obs/LUTS Controlled type 2 diabetes mellitus (10/03/16) Diabetes Diverticulosis of sigmoid colon (03/20/17) Elevated PSA Elevated PSA Essential hypertension (10/27/11) Family history of prostate cancer Gastroesophageal reflux disease (03/01/14) History of primary bladder cancer HLD (hyperlipidemia) Hyperlipidemia (10/27/11) Hypothyroid Malignant neoplasm of urinary bladder (10/11/16) Melena Mild cognitive impairment Neoplasm of uncertain behavior of bladder Osteoarthritis Persistent atrial fibrillation Prostate cancer RBBB plus LA hemiblock Tubular adenoma of colon (03/20/17) Surgical History History of appendectomy History of cardiac radiofrequency ablation History of cystoscopy History of knee surgery Hx of rotator cuff surgery Family History Father CAD (coronary artery disease) Hyperlipidemia Hypertension Hearing impairment Mother CAD (coronary artery disease) Hypertension Hyperlipidemia Cancer Social History marital status: household members: spouse occupational status: previously employed Smoking Status: Never smoker alcohol intake: never substance use type: does not use caffeine: Yes Smoking Status: Never smoker alcohol intake frequency: other Substance Use Type: does not use Exam <GUALBERTO Armenta - Last Filed: 08/14/21 19:15> Narrative Exam Narrative: Exam Narrative: GENERAL: [68 year old patient appears stated age. Well-developed patient, in mild distress. HEAD: Atraumatic. Normocephalic. EYES: Pupils equal round and reactive. Extraocular motions intact. No scleral icterus. No injection or drainage. ENT: Nose without bleeding, purulent drainage. Airway patent. NECK: Trachea midline. Non tender CARDIOVASCULAR: Regular rate and rhythm without murmurs, gallops, or rubs. RESPIRATORY: Clear to auscultation. Breath sounds equal bilaterally. No wheezes, rales, or rhonchi.? GASTROINTESTINAL: Abdomen soft, non-tender, nondistended, no CVA tenderness EXTREMITIES: No edema or joint tenderness. NEURO: AOx3. SKIN: No rash or erythema of visible areas Initial Vital Signs Initial Vital Signs: Vital Signs Temperature 98.0 F 08/14/21 11:23 Pulse Rate 68 08/14/21 11:23 Respiratory Rate 16 08/14/21 11:23 Blood Pressure 151/67 H 08/14/21 11:23 Pulse Oximetry 97 08/14/21 11:23 <Adriana Odell DO - Last Filed: 08/15/21 08:26> Initial Vital Signs Initial Vital Signs: Vital Signs Temperature 98.0 F 08/14/21 11:23 Pulse Rate 68 08/14/21 11:23 Respiratory Rate 16 08/14/21 11:23 Blood Pressure 151/67 H 08/14/21 11:23 Pulse Oximetry 97 08/14/21 11:23 Course <GUALBERTO Armenta - Last Filed: 08/14/21 19:15> Orders Ordered: ED Orders 08/14/21 12:25 Urinalysis and Microscopic Stat Consultations Consultation #1: Consult with Dr. Lary Dasilva regarding patient's case. He reports this is most likely related to him on Xarelto and is having a delayed postop bleed. He reports that his lesion that was removed approximately 3 weeks ago was at the 8 o'clock position on the bladder neck and covered approximately 80% of that which he would Expect to have problems bleeding if somebody is on a blood thinner. Dr. Dasilva denies any possibility that this could be a new tumor, he is aware that he has had hematuria, and he is sorry that nobody from the office had called him back. His recommendation is for the patient to discontinue taking the Xarelto for 2-3 days until his bleeding resolved and then to resume at possibly a lower dose if that is what his prescriber for Xarelto agrees with. Patient reports that he has an appointment with this physician tomorrow. Patient also has a upcoming appointment with medicine oncology November for these urinary issues which include his prostate cancer history, his bladder cancer, and his BPH. On his last visit to the emergency department on 08/12, his H&H at that time was stable at 11 and 33. His culture from 08/01 showed Staph epidermidis and he completed a course of doxycycline, and now is on Bactrim. I let him know that patient voided, postvoid residual was only 30 mL, so his urinary retention is not problematic today. We did culture his urine again today so that can be followed up on if positive. t is appropriate and amenable to discharge home. Vital signs are stable on repeat examination is unremarkable. Patient has been informed of results. Patient has been given strict return to ER precautions for any new or worsening symptoms. Patient understands to follow up closely with outpatient providers as instructed. Patient understands plan and agrees to discharge home. All questions and concerns answered at this time. Vital Signs Vital signs: Vital Signs - 8 hr 08/14/21 11:23 Temperature 98.0 F Pulse Rate 68 Respiratory Rate 16 Blood Pressure 151/67 H Pulse Oximetry 97 <Adriana Odell DO - Last Filed: 08/15/21 08:26> Orders Ordered: ED Orders 08/14/21 12:25 Urinalysis and Microscopic Stat Vital Signs Vital signs: Vital Signs - 8 hr 08/14/21 11:23 Temperature 98.0 F Pulse Rate 68 Respiratory Rate 16 Blood Pressure 151/67 H Pulse Oximetry 97 MDM - Male Genitourinary <GUALBERTO Armenta - Last Filed: 08/14/21 19:15> Lab Data Labs: Lab Results 08/14/21 Range/Units 12:25 Urine Color Red Urine Appearance Cloudy Urine pH 5.0 (4.5-8.0) Ur Specific [place] 1.020 (1.000-1.035) Urine Protein 2+ H (Negative) Urine Glucose (UA) Negative (Negative) g/dL Urine Ketones Negative (NEGATIVE) Urine Occult Blood 3+ H (Negative) Urine Nitrate Negative (Negative) Urine Bilirubin Negative (NEGATIVE) Urine Urobilinogen 0.2 (0.2) E.U./dL Ur Leukocyte Esterase Negative (NEGATIVE) Urine RBC >100/hpf H (0-5/HPF) Urine WBC 1-5/hpf (0-5/HPF) Ur Squamous Epith Cells None seen (0-5/HPF) Amorphous Sediment 2+ Urine Bacteria None seen (None) Ur Culture Indicated? Cult not indicated MDM Narrative Medical decision making narrative: 76-year-old male on Xarelto with history of BPH, prostate CA, bladder CA with 1.5 weeks of hematuria or presents to the emergency department for the same. He states he presented to the emergency department because the office did not call him back when he was trying to get an appointment with Dr. Dasilva. Please see my consult note above. Dr. Dasilva reported this is not a new issue, this is most likely a delayed postop bleed due to patient being on Xarelto, higher dose of Xarelto, and anatomically where the lesion was removed from his bladder neck. He suggestd holding the Xarelto for 2-3 days until the hematuria resolves and discussing this with his PCP. Patient refused a workup today, allowed staff to bladder scan him only. Patient reports he is comfortable holding his Xarelto for 2-3 days to allow for resolution of his hematuria and to follow-up with his PCP at his appointment tomorrow. Patient is appropriate and amenable to discharge home. Vital signs are stable on repeat examination is unremarkable. Patient has been informed of results. Patient has been given strict return to ER precautions for any new or worsening symptoms. Patient understands to follow up closely with outpatient providers as instructed. Patient understands plan and agrees to discharge home. All questions and concerns answered at this time. <Adriana Odell, DO - Last Filed: 08/15/21 08:26> Lab Data Labs: Lab Results 08/14/21 Range/Units 12:25 Urine Color Red Urine Appearance Cloudy Urine pH 5.0 (4.5-8.0) Ur Specific [place] 1.020 (1.000-1.035) Urine Protein 2+ H (Negative) Urine Glucose (UA) Negative (Negative) g/dL Urine Ketones Negative (NEGATIVE) Urine Occult Blood 3+ H (Negative) Urine Nitrate Negative (Negative) Urine Bilirubin Negative (NEGATIVE) Urine Urobilinogen 0.2 (0.2) E.U./dL Ur Leukocyte Esterase Negative (NEGATIVE) Urine RBC >100/hpf H (0-5/HPF) Urine WBC 1-5/hpf (0-5/HPF) Ur Squamous Epith Cells None seen (0-5/HPF) Amorphous Sediment 2+ Urine Bacteria None seen (None) Ur Culture Indicated? Cult not indicated Discharge Plan Departure Patient Disposition: Home Clinical Impression: Hematuria Qualifiers: Hematuria type: unspecified type Qualified Code(s): R31.9 - Hematuria, unspecified Instructions: DI for Hematuria, DI for Urinary Retention in Men Activity Restrictions/Additional Instructions: *You have been diagnosed with Hematuria which is most likely related to your Xarelto causing a delayed postop bleed. After discussion with your urologist per their suggestions, you should stop taking your Xarelto for 2-3 days and see if your hematuria resolves. since you are following up with your PCP tomorrow, mention this issue you have been having for the last 1 and half weeks, let him know your also taking Bactrim the antibiotic, and see if he would like to check your coagulation time or adjust your dosing. We sent your urine for a culture today, please continue Bactrim for the rest of its course, return to the emergency department if you are having difficulty voiding, developed back pain,a fever or nausea, vomiting, or any other concerns. Please go to your appointment tomorrow and let them know what you have shared with me, also a reminder of your appointment August 26 with medicine oncology. *What to do: *Please continue to take your regular medications as directed. [ ] New medication prescriptions sent to your pharmacy: [ ] [ ] New medication written as a paper prescription [ x] No new medications given *Please follow up with your primary care provider in 2-3 days, call for an appointment. Let them know you were seen in the Emergency Department and that we ask that you be seen in follow up. We will electronically transmit a record of today's note if your PCP is in our system *If you do not have a primary care provider please contact the [facility] Resource line at [phone]. They will ask some questions about your medical history and help get you set up with a doctor in the community. *Return to Emergency Department if you should have any new, worsening or concerning symptoms, such as [fever greater than 101F, chills, worsening pain, persistent vomiting or other bothersome symptoms] Prescriptions: No Action magnesium oxide 400 MG tablet 1 tab PO Q DAY Qty: 0 RF: 0 lovastatin 40 MG tablet 40 mg PO Q DAY Qty: 90 RF: 3 omeprazole 20 MG capsule,delayed release(DR/EC) 20 mg PO QDAY Qty: 90 RF: 3 potassium chloride [Klor-Con M20] 20 MEQ tablet,ER particles/crystals 20 meq PO AMCC Qty: 90 RF: 0 enalapril maleate 5 MG tablet 5 mg PO QDAY Qty: 90 RF: 1 (DME) blood sugar diagnostic [True Metrix Glucose Test Strip] strip See Dose Instructions .ROUTE .MEDSUPPLY Qty: 100 RF: 4 doxycycline hyclate 100 mg capsule 100 mg PO BID Qty: 20 RF: 0 metoprolol succinate 25 mg Tablet Extended Release 24 Hr 12.5 mg PO BEDTIME RF: 0 levothyroxine 75 mcg Capsule 75 mcg PO DAILY RF: 0 sulfamethoxazole-trimethoprim [Bactrim DS] 800-160 mg tablet 1 tab PO BID 10 Days Qty: 20 RF: 0 tamsulosin [Flomax] 0.4 MG capsule 0.8 mg PO QPM RF: 0 amiodarone 200 mg tablet 100 mg PO QPM RF: 0 liothyronine 5 mcg tablet 10 mcg PO DAILY RF: 0 Xarelto 20 mg tablet 20 mg PO QPM RF: 0 finasteride 5 mg tablet 5 mg PO DAILY Qty: 90 RF: 3 bicalutamide 50 mg tablet 50 mg PO DAILY Qty: 30 RF: 0 Referrals: Mahendra Dasilva MD [Physician] - Robbie Mccullough MD [Primary Care Provider] - <Adriana Odell DO - Last Filed: 08/15/21 08:26> Cosign ED Attending Cosignature Attestation: I was immediately available in the department for consultation. Documentation has been reviewed. Case was discussed with myself. Patient's prior labs and vitals today were reviewed as well as Dr. Dasilva's recommendations.
--- NOTE | 2021-08-14 13:25 | PC.NURSE ---
Pt is ambulatory to bathroom independently multiple times throughout his stay thus far. Reports sensation of urgency, but not significant output. Bladder scan revealed 31mls post-void residual.
== END 2021-08-14 13:47 | disposition home or self-care (01) ==
PROVIDERS: Emergency Medicine; Emergency Provider Nurse Practitioner Critical Care Medicine; PCP Internal Medicine
DX: R31.9 Hematuria, unspecified (principal); Z79.01 Long term (current) use of anticoagulants
CPT/HCPCS: 51798; 81001; 99282

== ENCOUNTER 2021-08-17 19:31 | Emergency (ER) | payer MEDICARE, SELFPAY ==
[2021-07-17 10:13] VITALS: BMI 37.5
[2021-08-17 19:37] VITALS: BP 190/81; PULSE 69; RESP 16; TEMP 35.9; O2SAT 97; BMI 34.7
[2021-08-17 20:52] LABS: Appearance Urine UA SL CLOUDY; Bilirubin Urine UA NEGATIVE (NEGATIVE); Color Urine UA YELLOW; Glucose Urine UA TRACE g/dL (Negative); Ketones Urine UA NEGATIVE (NEGATIVE); Leukocyte Esterase Urine UA TRACE (NEGATIVE); Nitrite Urine UA NEGATIVE (Negative); Occult Blood Urine UA 3+ (Negative); Protein Urine UA 1+ (Negative); Specific Gravity Urine UA 1.025 (1.000-1.035); Urobilinogen Urine UA 0.2 E.U./dL (0.2)
[2021-08-17 21:01] LABS: Bacteria Urine Many (>30); Culture Indicated Urine Specimen Cultured; RBC Urine >100/HPF (0-5/HPF); Squamous Epithelial Cell Urine 1-5 /HPF (0-5/HPF); WBC Urine 5-10/HPF (0-5/HPF)
--- NOTE | 2021-08-17 21:06 | ED_ITS ---
HPI - Male Genitourinary General Chief complaint: Urogenital-Male Stated complaint: bladder infection Time Seen by Provider: 08/17/21 20:20 History of Present Illness HPI Narrative: Patient is a 76-year-old male who presents with severe dysuria and urgency. History of bladder cancer and prostate cancer. He actually was diagnosed UTI staph coccus epidermidis on 08/01/2021. Because this is when his symptoms started. He was 1st put on doxycycline by his urologist. He was then seen in the emergency department high days ago at which point his antibiotic was changed to Bactrim if he continued to have symptoms. Pain. Only urgency. No chest pain no palpitations no shortness of breath no changes in bowel habits. He has not had any fever chills. He was seen again on August 14 for the same symptoms. At that time urology was consultation. He is having hematuria he apparently is on Xarelto for atrial flutter. It was thought that he was having hematuria and urgency secondary to Xarelto and delayed postoperative bleeding from where a lesion was removed in his bladder. It he has had ongoing hematuria for a number of weeks. Patient also states that he has had ongoing urgency and has not changed with the use of 2 different antibiotics. Patient has spent most of his time in the emergency department in the bathroom. Actually had a difficult time finding him in his room. He says he is up all night and all day. He must sit down to urinate he does not want a commode or urinal. Urine cultures from earlier this week do not show any growth Related Data Home Medications Medication Instructions Recorded Confirmed magnesium oxide 400 mg (241.3 mg 1 tab PO Q DAY #0 07/31/16 08/01/21 magnesium) tablet amiodarone 200 mg tablet 100 mg PO QPM 04/18/19 08/12/21 liothyronine 5 mcg tablet 10 mcg PO DAILY tab 04/18/19 08/12/21 rivaroxaban 20 mg tablet (Xarelto) 20 mg PO QPM 04/18/19 08/12/21 levothyroxine 75 mcg capsule 75 mcg PO DAILY 01/12/20 08/12/21 metoprolol succinate 25 mg 12.5 mg PO BEDTIME 01/12/20 08/12/21 tablet,extended release 24 hr tamsulosin 0.4 mg capsule (Flomax) 0.8 mg PO QPM 10/19/20 08/12/21 Previous Rx's Medication Instructions Recorded lovastatin 40 mg tablet 40 mg PO Q DAY #90 tab 03/04/17 omeprazole 20 mg capsule,delayed 20 mg PO QDAY #90 cap 03/04/17 release potassium chloride 20 mEq 20 meq PO [facility] #90 tab 05/27/17 tablet,extended release(part/cryst) (Klor-Con M) enalapril maleate 5 mg tablet 5 mg PO QDAY #90 tab 08/03/17 blood sugar diagnostic (True #100 each 04/23/18 Metrix Glucose Test Strip) finasteride 5 mg tablet 5 mg PO DAILY #90 tab 03/06/21 bicalutamide 50 mg tablet 50 mg PO DAILY #30 tab 06/12/21 doxycycline hyclate 100 mg capsule 100 mg PO BID #20 cap 08/05/21 sulfamethoxazole 800 1 tab PO BID 10 Days #20 tab 08/12/21 mg-trimethoprim 160 mg tablet (Bactrim DS) phenazopyridine 200 mg tablet 200 mg PO TID PRN #6 tab 08/17/21 (Pyridium) Allergies Allergy/AdvReac Type Severity Reaction Status Date / Time latex Allergy Verified 08/14/21 11:27 Review of Systems Review of Systems Narrative: GENERAL: Denies chills, fatigue, malaise, fever, sweats, travel HEENT: Denies sinus pain, ear pain, sore throat, difficulty swallowing, neck pain RESPIRATORY: Denies dyspnea, cough, wheezing, hemoptysis, sputum. CARDIOVASCULAR: Denies chest pain, palpitations, orthopnea, edema GASTROINTESTINAL: Denies nausea, vomiting, abdominal pain, diarrhea, constipation, melena. : See HPI MUSCULOSKELETAL: Denies weakness, joint pain, or bony pain SKIN: No rash, no erythema, no pruritus NEUROLOGIC: Denies weakness, dizziness, headache, numbness, change in speech, confusion PSYCHIATRIC: No concerning psychosocial issues. 12 point review of systems is negative except for those stated above and HPI Patient History Medical History Asthma (11/04/11) Atrial flutter (03/20/17) Benign prostatic hyperplasia (11/04/11) Body mass index (BMI) of 30.0 to 39.9 (10/27/11) BPH w urinary obs/LUTS Controlled type 2 diabetes mellitus (10/03/16) Diabetes Diverticulosis of sigmoid colon (03/20/17) Elevated PSA Elevated PSA Essential hypertension (10/27/11) Family history of prostate cancer Gastroesophageal reflux disease (03/01/14) History of primary bladder cancer HLD (hyperlipidemia) Hyperlipidemia (10/27/11) Hypothyroid Malignant neoplasm of urinary bladder (10/11/16) Melena Mild cognitive impairment Neoplasm of uncertain behavior of bladder Osteoarthritis Persistent atrial fibrillation Prostate cancer RBBB plus LA hemiblock Tubular adenoma of colon (03/20/17) Surgical History History of appendectomy History of cardiac radiofrequency ablation History of cystoscopy History of knee surgery Hx of rotator cuff surgery Family History Father CAD (coronary artery disease) Hyperlipidemia Hypertension Hearing impairment Mother CAD (coronary artery disease) Hypertension Hyperlipidemia Cancer Social History marital status: household members: spouse occupational status: previously employed Smoking Status: Never smoker alcohol intake: never substance use type: does not use caffeine: Yes Smoking Status: Never smoker alcohol intake frequency: other Substance Use Type: does not use Exam Initial Vital Signs Initial Vital Signs: Vital Signs Temperature 96.6 F L 08/17/21 19:37 Pulse Rate 69 08/17/21 19:37 Respiratory Rate 16 08/17/21 19:37 Blood Pressure 190/81 H 08/17/21 19:37 Pulse Oximetry 97 08/17/21 19:37 GENERAL: Alert 76-year-old male HEENT: Head atraumatic,EOMI, pupils reactive, face symmetric, [moist] mucous membranes CARDIOVASCULAR: Regular rate and rhythm without murmurs, rubs or gallops. RESPIRATORY: Breath sounds equal bilaterally, no wheezes rales or rhonchi. ABDOMEN: Soft, nontender. Normoactive bowel sounds all 4 quadrants. No guarding or rebound. : No CVA tenderness, bedside ultrasound does not show an enlarged bladder. EXTREMITIES: Normal range of motion, no clubbing or edema. Neurovascularly intact NEUROLOGICAL: Alert and oriented x4.Normal gait and speech. SKIN: Warm, dry, no laceration, no petechiae, no rashes or lesions. Course Orders Ordered: ED Orders 08/17/21 20:34 Complete Blood Count AUTO DIFF Stat Comprehensive Metabolic Panel Stat Lactate (Lactic Acid) Stat Procalcitonin Stat 08/17/21 20:40 Blood Culture Stat 08/17/21 20:44 Urinalysis and Microscopic Stat Urine Culture Stat Discontinued Medications Hydrocodone Bitart/Acetaminophen (Hydrocodone/Acet 5/325 Prepack) 1 bottle MISC SEEINSTR ONE Stop: 08/17/21 22:57 Last Admin: 08/17/21 23:13 Dose: 1 bottle Documented by: JAZMYNE Sodium Chloride (Normal Saline 0.9%) 1,000 mls @ 1,000 mls/hr IV BOLUS ONE Stop: 08/17/21 22:07 Last Infusion: 08/17/21 22:49 Dose: 0 mls/hr Documented by: Admin: 08/17/21 21:30 Dose: 1,000 mls/hr Documented by: ALAN Phenazopyridine HCl (Phenazopyridine 100 Mg Tablet) 200 mg PO NOW ONE Stop: 08/17/21 21:52 Last Admin: 08/17/21 22:04 Dose: 200 mg Documented by: ALAN Vital Signs Vital signs: Vital Signs - 8 hr 08/17/21 19:37 08/17/21 23:01 Temperature 96.6 F L Pulse Rate 69 68 Respiratory Rate 16 20 Blood Pressure 190/81 H 170/78 H Pulse Oximetry 97 99 MDM - Male Genitourinary Lab Data Result diagrams: 08/17/21 20:34 08/17/21 20:34 Labs: Lab Results 08/17/21 08/17/21 08/17/21 Range/Units 20:34 20:34 20:34 WBC 9.7 (4.5-11.0) X10^3/uL RBC 3.87 L (4.5-5.9) X10^6/uL Hgb 11.5 L (13.5-17.5) g/dL Hct 34.1 L (41-53) % MCV 88.2 (80-100) fL MCH 29.8 (26-34) PG MCHC 33.7 (30-36) % RDW 14.4 (11.6-14.8) % Plt Count 262 (150-400) X10^3/uL Neut % (Auto) 78.3 H (50-75) % Lymph % (Auto) 9.4 L (25-40) % [place] % (Auto) 10.8 (3-14) % Eos % (Auto) 1.0 L (2-4) % Baso % (Auto) 0.5 (0-2) % Neut # (Auto) 7600 H (6458-7024) /uL Lymph # (Auto) 900 L (3308-5805) /uL [place] # (Auto) 1100 H (0-900) /uL Eos # (Auto) 100 (0-450) /uL Baso # (Auto) 100 (0-100) /uL Sodium 130 L (137-145) mmol/L Potassium 3.8 (3.4-5.1) mmol/L Chloride 95 L (98-107) mmol/L Carbon Dioxide 25 (22-32) mmol/L BUN 25 H (9-20) mg/dL Creatinine 1.31 H (0.66-1.25) mg/dL Estimated GFR 52.9 L (>60) mL/min BUN/Creatinine Ratio 19.1 (6-22) Glucose 111 H (80-110) mg/dL Lactate 1.1 (0.7-2.1) mmol/L Calcium 9.2 (8.4-10.2) mg/dL Total Bilirubin 0.5 (0.2-1.3) mg/dL AST 31 (17-59) IU/L ALT 22 (<50) IU/L Alkaline Phosphatase 76 (38-126) U/L Total Protein 7.4 (6.3-8.2) g/dL Albumin 4.1 (3.5-5.0) g/dL Globulin 3.3 (1.7-4.1) g/dL Albumin/Globulin Ratio 1.2 (1.0-2.8) Procalcitonin (<0.5) ng/mL Urine Color Urine Appearance Urine pH (4.5-8.0) Ur Specific [place] (1.000-1.035) Urine Protein (Negative) Urine Glucose (UA) (Negative) g/dL Urine Ketones (NEGATIVE) Urine Occult Blood (Negative) Urine Nitrate (Negative) Urine Bilirubin (NEGATIVE) Urine Urobilinogen (0.2) E.U./dL Ur Leukocyte Esterase (NEGATIVE) Urine RBC (0-5/HPF) Urine WBC (0-5/HPF) Ur Squamous Epith Cells (0-5/HPF) Urine Bacteria (None) Ur Culture Indicated? 08/17/21 08/17/21 Range/Units 20:34 20:44 WBC (4.5-11.0) X10^3/uL RBC (4.5-5.9) X10^6/uL Hgb (13.5-17.5) g/dL Hct (41-53) % MCV (80-100) fL MCH (26-34) PG MCHC (30-36) % RDW (11.6-14.8) % Plt Count (150-400) X10^3/uL Neut % (Auto) (50-75) % Lymph % (Auto) (25-40) % [place] % (Auto) (3-14) % Eos % (Auto) (2-4) % Baso % (Auto) (0-2) % Neut # (Auto) (1110-4755) /uL Lymph # (Auto) (6929-7976) /uL [place] # (Auto) (0-900) /uL Eos # (Auto) (0-450) /uL Baso # (Auto) (0-100) /uL Sodium (137-145) mmol/L Potassium (3.4-5.1) mmol/L Chloride (98-107) mmol/L Carbon Dioxide (22-32) mmol/L BUN (9-20) mg/dL Creatinine (0.66-1.25) mg/dL Estimated GFR (>60) mL/min BUN/Creatinine Ratio (6-22) Glucose (80-110) mg/dL Lactate (0.7-2.1) mmol/L Calcium (8.4-10.2) mg/dL Total Bilirubin (0.2-1.3) mg/dL AST (17-59) IU/L ALT (<50) IU/L Alkaline Phosphatase (38-126) U/L Total Protein (6.3-8.2) g/dL Albumin (3.5-5.0) g/dL Globulin (1.7-4.1) g/dL Albumin/Globulin Ratio (1.0-2.8) Procalcitonin 0.05 (<0.5) ng/mL Urine Color Yellow Urine Appearance Sl cloudy Urine pH 5.0 (4.5-8.0) Ur Specific [place] 1.025 (1.000-1.035) Urine Protein 1+ H (Negative) Urine Glucose (UA) Trace H (Negative) g/dL Urine Ketones Negative (NEGATIVE) Urine Occult Blood 3+ H (Negative) Urine Nitrate Negative (Negative) Urine Bilirubin Negative (NEGATIVE) Urine Urobilinogen 0.2 (0.2) E.U./dL Ur Leukocyte Esterase Trace H (NEGATIVE) Urine RBC >100/hpf H (0-5/HPF) Urine WBC 5-10/hpf H (0-5/HPF) Ur Squamous Epith Cells 1-5 /hpf (0-5/HPF) Urine Bacteria Many (>30) H (None) Ur Culture Indicated? Specimen cultured MDM Narrative Medical decision making narrative: Patient has been to the restroom multiple times. Certainly has some irritation is a he is given a dose of Pyridium. Urinalysis does show hematuria he actually does have bacteria in his urine this time. At this point I recommend waiting for urine culture before changing or restarting antibiotics. He is not septic. He has no leukocytosis he is afebrile. Will give him pain medication and Pyridium to see if it helps no wait for culture. Discharge Plan Departure Patient Disposition: Home Clinical Impression: Cystitis, interstitial, Hematuria Instructions: Interstitial Cystitis, DI for Hematuria Activity Restrictions/Additional Instructions: *You have been diagnosed with interstitial cystitis, hematuria *What to do: Urine does have some bacteria in it today however breath wait for culture to return if he if we need to change her antibiotics. *Continue to take medications as directed Pyridium 200 mg 3 times a day for urine urgency and painful urination--> SENT TO [facility] 1 tablet at night to help with sleep and pain *Follow up with your primary care provider in 2-3 days *Return to ER if you should have increasing abdominal pain, fever, confusion or any new, worsening or concerning symptoms Prescriptions: New phenazopyridine [Pyridium] 200 mg tablet 200 mg PO TID PRN (Reason: pain) Qty: 6 RF: 0 No Action magnesium oxide 400 MG tablet 1 tab PO Q DAY Qty: 0 RF: 0 lovastatin 40 MG tablet 40 mg PO Q DAY Qty: 90 RF: 3 omeprazole 20 MG capsule,delayed release(DR/EC) 20 mg PO QDAY Qty: 90 RF: 3 potassium chloride [Klor-Con M20] 20 MEQ tablet,ER particles/crystals 20 meq PO [facility]CC Qty: 90 RF: 0 enalapril maleate 5 MG tablet 5 mg PO QDAY Qty: 90 RF: 1 (DME) blood sugar diagnostic [True Metrix Glucose Test Strip] strip See Dose Instructions .ROUTE .MEDSUPPLY Qty: 100 RF: 4 doxycycline hyclate 100 mg capsule 100 mg PO BID Qty: 20 RF: 0 metoprolol succinate 25 mg Tablet Extended Release 24 Hr 12.5 mg PO BEDTIME RF: 0 levothyroxine 75 mcg Capsule 75 mcg PO DAILY RF: 0 sulfamethoxazole-trimethoprim [Bactrim DS] 800-160 mg tablet 1 tab PO BID 10 Days Qty: 20 RF: 0 tamsulosin [Flomax] 0.4 MG capsule 0.8 mg PO QPM RF: 0 amiodarone 200 mg tablet 100 mg PO QPM RF: 0 liothyronine 5 mcg tablet 10 mcg PO DAILY RF: 0 Xarelto 20 mg tablet 20 mg PO QPM RF: 0 finasteride 5 mg tablet 5 mg PO DAILY Qty: 90 RF: 3 bicalutamide 50 mg tablet 50 mg PO DAILY Qty: 30 RF: 0 Referrals: Mahendra Dasilva MD [Physician] - Robbie Mccullough MD [Primary Care Provider] -
[2021-08-17 21:15] LABS: Basophils Absolute Auto 100 /uL (0-100); Eosinophils Absolute Auto 100 /uL (0-450); Lymphocytes Absolute Auto 900 /uL (1100-4500); Lymphocytes Percent Auto 9.4 % (25-40); Mean Corpuscular HGB Conc 33.7 % (30-36); Monocytes Absolute Auto 1100 /uL (0-900)
[2021-08-17 21:20] LABS: Add Manual Diff / Slide Review NO; Basophils Percent Auto 0.5 % (0-2); Hematocrit 34.1 % (41-53); Hemoglobin 11.5 g/dL (13.5-17.5); Mean Corpuscular Hemoglobin 29.8 PG (26-34); Mean Corpuscular Volume 88.2 fL (80-100); Monocytes Percent Auto 10.8 % (3-14); Neutrophils Absolute Auto 7600 /uL (1500-7000); Neutrophils Percent Auto 78.3 % (50-75); Platelet Count 262 X10^3/uL (150-400); Red Blood Cell Count 3.87 X10^6/uL (4.5-5.9); Red Cell Distribution Width 14.4 % (11.6-14.8); White Blood Cell Count 9.7 X10^3/uL (4.5-11.0)
[2021-08-17 21:22] LABS: Alanine Aminotransferase 22 IU/L (<50); Albumin 4.1 g/dL (3.5-5.0); Albumin Globulin Ratio 1.2 (1.0-2.8); Alkaline Phosphatase 76 U/L (38-126); Aspartate Aminotransferase 31 IU/L (17-59); BUN Creatinine Ratio 19.1 (6-22); Bilirubin Total 0.5 mg/dL (0.2-1.3); Blood Urea Nitrogen 25 mg/dL (9-20); Calcium 9.2 mg/dL (8.4-10.2); Carbon Dioxide 25 mmol/L (22-32); Chloride 95 mmol/L (98-107); Estimated Glomerular Filt Rate 52.9 mL/min (>60); Globulin 3.3 g/dL (1.7-4.1); Glucose 111 mg/dL (80-110); HEMOLYSIS < 15 (0-50); Lactate (Lactic Acid) 1.1 mmol/L (0.7-2.1); Potassium 3.8 mmol/L (3.4-5.1); Sodium 130 mmol/L (137-145); Total Protein 7.4 g/dL (6.3-8.2)
[2021-08-17] MEDS: SODIUM CHLORIDE 0.9% 1,000 ML 1000 ML IV (21:30)
[2021-08-17 21:39] LABS: Procalcitonin 0.05 ng/mL (<0.5)
[2021-08-17] MEDS: PHENAZOPYRIDINE 100 MG TABLET 200 MG PO (22:04)
--- NOTE | 2021-08-17 22:13 | PC.NURSE ---
Pt frequently up to bathroom to urinate small amounts, reports burning. He is up to the bathroom about every 20min. Reports no relief in symptoms since starting ABX on thursday - . Minimal bladder scan of 44mL
[2021-08-17 23:01] VITALS: BP 170/78; PULSE 68; RESP 20; O2SAT 99
[2021-08-17] MEDS: HYDROCODONE/ACET 5/325 PREPACK 1 BOTTLE MISC (23:13)
== END 2021-08-17 23:20 | disposition home or self-care (01) ==
PROVIDERS: Emergency Provider Emergency Medicine; PCP Internal Medicine
DX: N30.11 Interstitial cystitis (chronic) with hematuria (principal)
CPT/HCPCS: 36415; 51798; 80053; 81001; 83605; 84145; 85025; 87040; 87086; 96360; 99284

== ENCOUNTER → 2021-08-28 11:57 | Outpatient (CLI) | payer MEDICARE, SELFPAY ==
[2021-07-17 10:13] VITALS: BMI 37.5
== END ==
PROVIDERS: PCP Internal Medicine; Visit Provider Specialist
DX: C67.9 Malignant neoplasm of bladder, unspecified (principal); C61 Malignant neoplasm of prostate; N39.0 Urinary tract infection, site not specified; R39.9 Unspecified symptoms and signs involving the genitourinary system; Z87.440 Personal history of urinary (tract) infections
CPT/HCPCS: 51798; 81002; 87086; 99215

== ENCOUNTER → 2021-09-10 10:00 | Outpatient (CLI) | payer MEDICARE, SELFPAY ==
[2021-07-17 10:13] VITALS: BMI 37.5
[2021-09-10 13:51] LABS: Prostate Specific Antigen Scrn 1.66 ng/mL (0.1-4.0)
== END ==
PROVIDERS: PCP Internal Medicine; Referring Provider Specialist; Visit Provider Specialist
DX: R97.20 Elevated prostate specific antigen [PSA] (principal)
CPT/HCPCS: 36415; G0103

== ENCOUNTER → 2021-09-17 11:00 | Outpatient (CLI) | payer MEDICARE, SELFPAY ==
[2021-07-17 10:13] VITALS: BMI 37.5
== END ==
PROVIDERS: PCP Internal Medicine; Referring Provider Specialist; Visit Provider Specialist
DX: C61 Malignant neoplasm of prostate (principal); R30.0 Dysuria; R39.9 Unspecified symptoms and signs involving the genitourinary system; Z87.440 Personal history of urinary (tract) infections; Z85.51 Personal history of malignant neoplasm of bladder
CPT/HCPCS: 51798; 81002; 87086; 96372; 96402; 99215; J0897; J9217

== ENCOUNTER → 2021-09-30 14:08 | Outpatient (CLI) | payer MEDICARE, SELFPAY ==
[2021-07-17 10:13] VITALS: BMI 37.5
[2021-09-30 17:23] LABS: COVID-19 CEPHEID PCR (VTM/NP) Negative (Negative)
== END ==
PROVIDERS: PCP Internal Medicine; Visit Provider Nurse Practitioner Family
DX: Z20.822 Contact with and (suspected) exposure to COVID-19 (principal)
CPT/HCPCS: C9803; U0003

== ENCOUNTER 2021-12-29 11:41 | Inpatient (IN) | payer MEDICARE, SELFPAY ==
[2021-07-17 10:13] VITALS: BMI 37.5
[2021-12-29] VITALS (11 sets, daily range): BP systolic 118–147; BP diastolic 56–70; PULSE 61–73; RESP 8–72; TEMP 36.2–36.8; O2SAT 95–100; BMI 34.4
--- NOTE | 2021-12-29 12:16 | PC.NURSE ---
patient has been having increased fatigue and dizzyness for the last two weeks. he has been undergoing radiation therapy for prostate cancer. his says that his activity has gone down hill and he is eating less but taking fluids adequately. She also adds that he has been on blood pressure medication for a long time and not been able to discuss this for a long time.
[2021-12-29 12:34] LABS: Add Manual Diff / Slide Review NO; Basophils Absolute Auto 0 /uL (0-100); Basophils Percent Auto 0.6 % (0-2); Eosinophils Absolute Auto 100 /uL (0-450); Hematocrit 25.8 % (41-53); Hemoglobin 8.7 g/dL (13.5-17.5); Lymphocytes Absolute Auto 300 /uL (1100-4500); Lymphocytes Percent Auto 4.9 % (25-40); Mean Corpuscular HGB Conc 33.6 % (30-36); Mean Corpuscular Hemoglobin 30.3 PG (26-34); Mean Corpuscular Volume 90.2 fL (80-100); Monocytes Absolute Auto 700 /uL (0-900); Monocytes Percent Auto 10.1 % (3-14); Neutrophils Absolute Auto 5400 /uL (1500-7000); Neutrophils Percent Auto 82.4 % (50-75); Platelet Count 226 X10^3/uL (150-400); Red Blood Cell Count 2.86 X10^6/uL (4.5-5.9); Red Cell Distribution Width 18.2 % (11.6-14.8); White Blood Cell Count 6.5 X10^3/uL (4.5-11.0)
[2021-12-29 12:42] LABS: Alanine Aminotransferase 16 IU/L (<50); Albumin 3.9 g/dL (3.5-5.0); Albumin Globulin Ratio 1.2 (1.0-2.8); Alkaline Phosphatase 72 U/L (38-126); Aspartate Aminotransferase 21 IU/L (17-59); Bilirubin Total 0.4 mg/dL (0.2-1.3); Blood Urea Nitrogen 33 mg/dL (9-20); Calcium 8.5 mg/dL (8.4-10.2); Carbon Dioxide 27 mmol/L (22-32); Chloride 103 mmol/L (98-107); Creatine Kinase 63 U/L (55-170); Estimated Glomerular Filt Rate 57.4 mL/min (>60); Globulin 3.3 g/dL (1.7-4.1); Glucose 122 mg/dL (80-110); HEMOLYSIS < 15 (0-50); Lipase 67 U/L (23-300); Potassium 3.7 mmol/L (3.4-5.1); Sodium 137 mmol/L (137-145); Total Protein 7.2 g/dL (6.3-8.2)
[2021-12-29 12:43] LABS: Magnesium 2.1 mg/dL (1.6-2.3)
[2021-12-29 12:54] LABS: Troponin I < 0.012 ng/mL (0.01-0.034)
[2021-12-29 12:59] LABS: Procalcitonin 0.06 ng/mL (<0.5)
--- NOTE | 2021-12-29 13:17 | DI.CT.S_ITS ---
PROCEDURE: CT ABDOMEN PELVIS W CON INDICATIONS: Blood in stool TECHNIQUE: After the administration of IV contrast, axial sections were acquired from the lung bases to the pubic symphysis. Coronal and sagittal reformats were performed. For radiation dose reduction, the following was used: automated exposure control, adjustment of mA and/or kV according to patient size. COMPARISON: [facility], CT, CT CHEST ABD PEL W CON, 06/07/2021, 10:02. [facility], CT, CT ABDOMEN PELVIS W CON, 08/20/2020, 18:57. FINDINGS: Image quality: Excellent. Lung bases: Mild dependent atelectasis. No pleural effusion. Heart: Aortic valvular and mitral annular calcifications. Coronary artery calcifications. ABDOMEN: Liver: No focal lesion. Gallbladder: Cholelithiasis. Biliary ducts: Unremarkable. Pancreas: Fatty atrophy. Spleen: Unremarkable. Adrenal Glands: No nodule. Kidneys and Ureters: No hydronephrosis. Prominent simple appearing renal cysts bilaterally. Stomach and Bowel: Stomach is not distended. No small bowel obstruction. There is abnormal thickening of the sigmoid colon in the lower midline abdomen, (2/58), may be slightly more prominent compared to prior CTs dating back to 2019. There appears to be luminal narrowing. There is extensive diverticulosis. There is mild surrounding fat stranding. The appendix is not identified. Peritoneum: No abnormal intraperitoneal fluid. No free air. Ventral Wall: No hernia. Small foci of air due to subcutaneous injections. Abdominal Nodes: No retroperitoneal or mesenteric adenopathy by size criteria. Vessels: Mild ectasia of the abdominal aorta measuring 2.8 cm. Circumferential calcified atherosclerotic plaque. 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 PELVIS: Pelvic Organs: Prostatomegaly with fiducial markers. Bladder: No stones. Pelvic Nodes: No enlarged lymph nodes. Miscellaneous: Question fat containing inguinal hernias. Bones: No suspicious lesion is identified. There is extensive DDD. IMPRESSION: 1. Abnormal thickening of the sigmoid colon with trace surrounding fat stranding. There appears to be luminal narrowing. Extensive diverticulosis. This could represent diverticulitis. Recommend further evaluation with colonoscopy if not recently performed. 2. No small bowel obstruction. No free fluid. 3.Cholelithiasis. Prostatomegaly with fiducial markers. 4. No suspicious osseous lesion is seen. No adenopathy. Dictated by: Job Vargas M.D. on 12/29/2021 at 12:46 Approved by: Job Vargas M.D. on 12/29/2021 at 12:56
[2021-12-29 13:18] LABS: Thyroid Stimulating Hormone 2.36 uIU/mL (0.47-4.68)
[2021-12-29] MEDS: SODIUM CHLORIDE 0.9% 1,000 ML 1000 ML IV (13:23)
--- NOTE | 2021-12-29 13:35 | ED.DIZZY ---
HPI - Dizziness <Alfredo Morton PA-C - Last Filed: 12/29/21 19:44> General Chief Complaint: Dizziness Stated Complaint: low blood pressure, dizzy x7 days Time Seen by Provider: 12/29/21 12:24 Source: patient Mode of arrival: Family Vehicle History of Present Illness HPI Narrative: Patient is a 76-year-old male who presents to the emergency department today for evaluation of dizziness and low blood pressure. Patient explains that he recently completed her radiation therapy for bladder and prostate cancer on 12/05/2021. He states that he has been experiencing diarrhea since completing radiation therapy, and notes that when he does have solid stools they are ?darker than normal?. He explains that his blood pressure at home was ?in the 80s over 50s? and states that his blood pressure usually is somewhere around 130/70. Patient also reports that he is anticoagulated daily with Xarelto due to history of atrial fibrillation. He states that his dizziness has been worsening over the past week or so and states that his low blood pressure with something and he noticed today. He denies fever, chills, chest pain, cough, shortness of breath, nausea, vomiting, constipation, abdominal pain, dysuria, hematuria, syncope, chest pain radiating to the back, unexplained sweating, or any other concerning symptoms. No further concerns were voiced at this time. Related Data Home Medications Medication Instructions Recorded Confirmed magnesium oxide 400 mg (241.3 mg 1 tab PO Q DAY #0 07/31/16 12/29/21 magnesium) tablet liothyronine 5 mcg tablet 10 mcg PO DAILY tab 04/18/19 12/29/21 levothyroxine 75 mcg capsule 75 mcg PO DAILY 01/12/20 12/29/21 metoprolol succinate 25 mg 12.5 mg PO BEDTIME 01/12/20 12/29/21 tablet,extended release 24 hr tamsulosin 0.4 mg capsule (Flomax) 0.4 mg PO QPM 10/19/20 12/29/21 amiodarone 200 mg tablet 100 mg PO QPM tab 12/17/21 12/29/21 Vitamin D3 50 mg PO DAILY 12/29/21 12/29/21 cartilage 40 mg-collagen II 10 1 tab PO DAILY 12/29/21 12/29/21 mg-boron 5 mg-hyaluronate 3.3 mg tablet (Joint Health) garlic 5,000 mcg tablet 5,000 mcg PO DAILY 12/29/21 12/29/21 glucosamine-chondroitin 250 mg-200 1 tab PO DAILY 12/29/21 12/29/21 mg tablet (Osteo Bi-Flex) horse chestnut 150 mg capsule 150 mg PO BID 12/29/21 12/29/21 metoprolol succinate 25 mg 25 mg PO DAILY 12/29/21 12/29/21 tablet,extended release 24 hr omega-3 fatty acids 1,000 mg PO DAILY 12/29/21 12/29/21 zinc 1 tab PO DAILY 12/29/21 12/29/21 Previous Rx's Medication Instructions Recorded lovastatin 40 mg tablet 40 mg PO Q DAY #90 tab 03/04/17 potassium chloride 20 mEq 20 meq PO [facility] #90 tab 05/27/17 tablet,extended release(part/cryst) (Klor-Con M) enalapril maleate 5 mg tablet 5 mg PO QDAY #90 tab 08/03/17 finasteride 5 mg tablet 5 mg PO DAILY #90 tab 03/06/21 pantoprazole 40 mg tablet,delayed 40 mg PO BID 30 Days #60 tab 01/02/22 release (Protonix) Allergies Allergy/AdvReac Type Severity Reaction Status Date / Time latex Allergy Verified 12/31/21 14:00 Review of Systems <Alfredo Morton PA-C - Last Filed: 12/29/21 19:44> Constitutional Constitutional: Denies chills, Denies fatigue, Denies fever(s), Denies frequent falls, Denies lethargy and Denies weakness Eyes Eyes: Denies loss of vision ENT Ears, Nose, Mouth, and Throat: Reports dizziness and Denies neck pain Cardiovascular Cardiovascular: Denies chest pain, Denies irregular heart rhythm, Denies lightheadedness, Denies palpitations, Denies dyspnea, Denies dyspnea on exertion, Denies orthopnea and Reports other (Low blood pressure) Respiratory Respiratory: Denies cough, Denies dyspnea, Denies dyspnea on exertion and Denies wheezing Gastrointestinal Gastrointestinal: Denies abdominal pain, Denies change in bowel habits, Reports diarrhea, Denies nausea, Denies vomiting and Reports other (Dark colored stools) Genitourinary Genitourinary: Denies hematuria, Denies flank pain, Denies urinary incontinence and Denies urinary urgency Musculoskeletal Musculoskeletal: Denies back pain, Denies muscle weakness, Denies neck pain, Denies numbness and Denies tingling Integumentary/Breasts Skin/Breast: Denies pruritus, Denies erythema, Denies rash and Denies wounds Neurologic Neurologic: Denies behavioral changes, Denies confusion, Reports dizziness, Denies frequent falls, Denies loss of vision, Denies numbness, Denies tingling and Denies weakness Psychiatric Psychiatric: Denies behavioral changes and Denies confusion Endocrine Endocrine: Denies fatigue and Denies palpitations Allergic/Immunologic Allergic/Immunologic: Denies wheezing Patient History <Alfredo Morton PA-C - Last Filed: 12/29/21 19:44> Medical History Asthma (11/04/11) Atrial flutter (03/20/17) Benign prostatic hyperplasia (11/04/11) Body mass index (BMI) of 30.0 to 39.9 (10/27/11) BPH w urinary obs/LUTS Controlled type 2 diabetes mellitus (10/03/16) Diabetes Diverticulosis of sigmoid colon (03/20/17) Elevated PSA Elevated PSA Essential hypertension (10/27/11) Family history of prostate cancer Gastroesophageal reflux disease (03/01/14) History of primary bladder cancer History of primary bladder cancer History of UTI HLD (hyperlipidemia) Hyperlipidemia (10/27/11) Hypothyroid Lower urinary tract symptoms (LUTS) Malignant neoplasm of urinary bladder (10/11/16) Melena Mild cognitive impairment Neoplasm of uncertain behavior of bladder Osteoarthritis Persistent atrial fibrillation Prostate cancer RBBB plus LA hemiblock Tubular adenoma of colon (03/20/17) Surgical History History of appendectomy History of cardiac radiofrequency ablation History of cystoscopy History of knee surgery Hx of rotator cuff surgery Family History Father CAD (coronary artery disease) Hyperlipidemia Hypertension Hearing impairment Mother CAD (coronary artery disease) Hypertension Hyperlipidemia Cancer Social History marital status: household members: spouse occupational status: previously employed Smoking Status: Never smoker alcohol intake: never substance use type: does not use caffeine: Yes Smoking Status: Never smoker alcohol intake frequency: other Substance Use Type: does not use Exam <Alfredo Morton PA-C - Last Filed: 12/29/21 19:44> Narrative Exam Narrative: GENERAL: 76 year old patient appears stated age. Well-developed patient, in no acute distress. HEAD: Atraumatic. Normocephalic. EYES: Pupils equal round and reactive. Extraocular motions intact. No scleral icterus. No injection or drainage. ENT: Nose without bleeding, purulent drainage. Throat without erythema, tonsillar hypertrophy or exudate. Airway patent. NECK: Trachea midline. Non tender CARDIOVASCULAR: Regular rate and rhythm without murmurs, gallops, or rubs. RESPIRATORY: Clear to auscultation. Breath sounds equal bilaterally. No wheezes, rales, or rhonchi. GASTROINTESTINAL: Abdomen is nontender the slightly firm on palpation. No shifting fluid wave. No splenomegaly or hepatomegaly appreciated. Negative Martinez sign. Stool guaiac positive on rectal examination. EXTREMITIES: No edema or joint tenderness. BACK: Nontender without deformity or crepitance. No flank tenderness. NEURO: AOx3. SKIN: No rash or erythema of visible areas Initial Vital Signs Initial Vital Signs: Vital Signs Temperature 97.2 F L 12/29/21 12:03 Pulse Rate 73 12/29/21 12:03 Respiratory Rate 72 H 12/29/21 12:03 Blood Pressure 128/59 L 12/29/21 12:03 Pulse Oximetry 99 12/29/21 12:03 Course <Alfredo Morton PA-C - Last Filed: 12/29/21 19:44> Course Course Narrative: CBC, CMP, lipase, magnesium, procalcitonin, TSH, troponin, type and screen, CT of the abdomen and pelvis with contrast, EKG, and H&H ordered. Orders Ordered: Discontinued Medications Acetaminophen (Acetaminophen 325 Mg Tablet) 650 mg PO Q6HR PRN PRN Reason: pain Albuterol (Albuterol 2.5 Mg/3 Ml Neb (Adult)) 2.5 mg INH [id number] PRN PRN Reason: Shortness Of Breath Amiodarone HCl (Amiodarone 200 Mg Tablet) 100 mg PO QPM GARTH Last Admin: 12/31/21 18:00 Dose: 100 mg Documented by: Admin: 12/30/21 17:25 Dose: 100 mg Documented by: SRIDEVI Amiodarone HCl (Amiodarone 200 Mg Tablet) 100 mg PO DAILY [facility] Last Admin: 01/02/22 09:38 Dose: 100 mg Documented by: ADIS Atorvastatin Calcium (Atorvastatin 20 Mg Tablet) 10 mg PO BEDTIME [facility] Last Admin: 12/31/21 20:11 Dose: 10 mg Documented by: Admin: 12/30/21 21:17 Dose: 10 mg Documented by: LORENA Bisacodyl (Bisacodyl 5 Mg Tablet) 5 mg PO NOW ONE Stop: 12/29/21 21:48 Last Admin: 12/29/21 22:35 Dose: Not Given Documented by: LORENA Bisacodyl (Bisacodyl 5 Mg Tablet) 5 mg PO NOW ONE Stop: 12/30/21 06:37 Last Admin: 12/30/21 07:21 Dose: Not Given Documented by: LORENA Dextrose (Dextrose 50 % In Water 25 Gm/50 Ml Syringe) 25 gm IV PRN PRN PRN Reason: Hypoglycemia Enalapril Maleate (Enalapril 5 Mg Tablet) 5 mg PO DAILY [facility] Last Admin: 12/30/21 16:19 Dose: Not Given Documented by: Admin: 12/29/21 22:38 Dose: Not Given Documented by: LORENA Enalapril Maleate (Enalapril 5 Mg Tablet) 5 mg PO DAILY [facility] Last Admin: 01/02/22 09:36 Dose: 5 mg Documented by: ADIS Finasteride (Finasteride 5 Mg Tablet) 5 mg PO DAILY [facility] Last Admin: 01/01/22 08:38 Dose: 5 mg Documented by: Admin: 12/31/21 09:50 Dose: 5 mg Documented by: Admin: 12/30/21 09:26 Dose: 5 mg Documented by: SRIDEVI Finasteride (Finasteride 5 Mg Tablet) 5 mg PO DAILY [facility] Last Admin: 01/02/22 09:37 Dose: 5 mg Documented by: ADIS Sodium Chloride (Normal Saline 0.9%) 1,000 mls @ 1,000 mls/hr IV BOLUS ONE Stop: 12/29/21 14:17 Last Infusion: 12/29/21 15:48 Dose: 0 mls/hr Documented by: Admin: 12/29/21 13:23 Dose: 1,000 mls/hr Documented by: AKBAR Sodium Chloride (Normal Saline 0.9%) 1,000 mls @ 100 mls/hr IV CONT [facility] Last Admin: 12/30/21 05:53 Dose: 100 mls/hr Documented by: Infusion: 12/30/21 05:52 Dose: 0 mls/hr Documented by: Admin: 12/29/21 19:51 Dose: 100 mls/hr Documented by: LORENA Sodium Chloride (Normal Saline 0.9%) 1,000 mls @ 200 mls/hr IV CONT [facility] Last Admin: 12/29/21 22:00 Dose: Not Given Documented by: LORENA Sodium Chloride (Normal Saline 0.9%) 1,000 mls @ 200 mls/hr IV CONT [facility] Last Admin: 12/30/21 07:21 Dose: 200 mls/hr Documented by: LORENA Insulin Human Lispro (Insulin Lispro 100 Unit/Ml 3ml Vial) 0 unit SUBCUT ACHS [facility]; Protocol Last Admin: 01/01/22 17:30 Dose: Not Given Documented by: Admin: 01/01/22 11:47 Dose: Not Given Documented by: Admin: 01/01/22 07:48 Dose: Not Given Documented by: Admin: 12/31/21 20:06 Dose: Not Given Documented by: Admin: 12/31/21 17:14 Dose: Not Given Documented by: Admin: 12/31/21 13:04 Dose: Not Given Documented by: Admin: 12/31/21 09:52 Dose: Not Given Documented by: Admin: 12/30/21 21:28 Dose: Not Given Documented by: Admin: 12/30/21 17:25 Dose: Not Given Documented by: Admin: 12/30/21 16:18 Dose: Not Given Documented by: Admin: 12/30/21 08:59 Dose: Not Given Documented by: SRIDEVI Levothyroxine Sodium (Levothyroxine 75 Mcg Tablet) 75 mcg PO 0600 [facility] Last Admin: 01/01/22 05:35 Dose: Not Given Documented by: Admin: 12/31/21 06:17 Dose: Not Given Documented by: Admin: 12/30/21 06:00 Dose: Not Given Documented by: LORENA Levothyroxine Sodium (Levothyroxine 75 Mcg Tablet) 75 mcg PO DAILY@0600 [facility] Last Admin: 01/02/22 05:33 Dose: 75 mcg Documented by: JASON Liothyronine Sodium (Liothyronine 5 Mcg Tablet) 10 mcg PO DAILY@0600 [facility] Last Admin: 01/01/22 05:35 Dose: Not Given Documented by: Admin: 12/31/21 06:17 Dose: Not Given Documented by: Admin: 12/30/21 10:11 Dose: Not Given Documented by: SRIDEVI Liothyronine Sodium (Liothyronine 5 Mcg Tablet) 10 mcg PO DAILY@0600 [facility] Last Admin: 01/02/22 05:33 Dose: 10 mcg Documented by: JASON Metoprolol Succinate (Metoprolol Er 25 Mg Tablet) 12.5 mg PO BEDTIME [facility] Last Admin: 12/31/21 20:10 Dose: 12.5 mg Documented by: Admin: 12/30/21 21:17 Dose: 12.5 mg Documented by: Admin: 12/29/21 22:38 Dose: Not Given Documented by: LORENA Metoprolol Succinate (Metoprolol Er 25 Mg Tablet) 25 mg PO DAILY [facility] Last Admin: 01/01/22 08:37 Dose: 25 mg Documented by: Admin: 12/31/21 09:50 Dose: 25 mg Documented by: Admin: 12/30/21 09:27 Dose: 25 mg Documented by: SRIDEVI Metoprolol Succinate (Metoprolol Er 25 Mg Tablet) 25 mg PO DAILY [facility] Last Admin: 01/02/22 09:37 Dose: 25 mg Documented by: ADIS Non-Formulary Medication (Levothyroxine) 75 mcg PO DAILY [facility] Non-Formulary Medication (Lovastatin) 40 mg PO Q DAY [facility] Ondansetron HCl (Ondansetron 4 Mg/2 Ml Inj) 4 mg IV Q8HR PRN PRN Reason: Nausea And Vomiting Pantoprazole Sodium (Pantoprazole 40 Mg Vial) 40 mg IV NOW ONE Stop: 12/29/21 14:26 Last Admin: 12/29/21 14:31 Dose: 40 mg Documented by: AKBAR Pantoprazole Sodium (Pantoprazole 40 Mg Vial) 40 mg IV BID [facility] Last Admin: 01/01/22 08:43 Dose: 40 mg Documented by: Admin: 12/31/21 20:11 Dose: 40 mg Documented by: Admin: 12/31/21 09:50 Dose: 40 mg Documented by: Admin: 12/30/21 21:18 Dose: 40 mg Documented by: Admin: 12/30/21 09:26 Dose: 40 mg Documented by: Admin: 12/29/21 20:39 Dose: 40 mg Documented by: LORENA Pantoprazole Sodium (Pantoprazole Dr 40 Mg Tablet) 40 mg PO 0700,2100 [facility] Pantoprazole Sodium (Pantoprazole 40 Mg Vial) 40 mg IV BID [facility] Last Admin: 01/02/22 09:38 Dose: 40 mg Documented by: Admin: 01/01/22 21:11 Dose: 40 mg Documented by: CARMELAFARL Polyethylene Glycol/Electrolytes ([id number]/Sod Sulf,Bicarb,Cl/Kcl 4,000 Ml Solution) 2,000 ml PO NOW ONE Stop: 12/30/21 09:01 Last Admin: 12/30/21 09:26 Dose: 2,000 ml Documented by: SRIDEVI Polyethylene Glycol/Electrolytes ([id number]/Sod Sulf,Bicarb,Cl/Kcl 4,000 Ml Solution) 2,000 ml PO NOW ONE Stop: 12/31/21 15:33 Last Admin: 12/31/21 15:50 Dose: 2,000 ml Documented by: SRIDEVI Tamsulosin HCl (Tamsulosin 0.4 Mg Capsule) 0.4 mg PO QPM [facility] Last Admin: 12/31/21 18:00 Dose: 0.4 mg Documented by: Admin: 12/30/21 17:25 Dose: 0.4 mg Documented by: SRIDEVI Tamsulosin HCl (Tamsulosin 0.4 Mg Capsule) 0.4 mg PO DAILY [facility] Last Admin: 01/02/22 09:38 Dose: 0.4 mg Documented by: ADIS Consultations Consultation #1: Consult with Dr. Montejo (cardiology). She states that she is not concerned regarding the patient's atrial fibrillation as his vital signs are stable. She recommends that the patient have an echocardiogram performed tomorrow and recommended general surgery consultation for the patient's GI bleeding. Recommends holding the patient's Xarelto and continuing his beta-davonte, amiodarone, and Lorenzo inhibitor treatment. Time: 15:08 Consultation #2: Consult with Dr. Ludwig (general surgery). States that his he believes the patient needs to be kept for colonoscopy in the morning. He explains that someone in his group will perform the colonoscopy and recommends admitting the patient to Medicine. Time: 15:15 Consultation #3: Consult with Dr. Wright (internal medicine). Accepts patient for inpatient admission. Time: 16:20 Vital Signs Vital signs: Vital Signs - 8 hr 12/29/21 12:03 12/29/21 12:19 12/29/21 14:39 Temperature 97.2 F L Pulse Rate 73 66 64 Respiratory Rate 72 H 20 24 Blood Pressure 128/59 L 128/59 L 144/65 H Pulse Oximetry 99 95 99 12/29/21 15:00 12/29/21 15:30 12/29/21 16:00 Temperature Pulse Rate 66 61 67 Respiratory Rate 24 10 L 26 H Blood Pressure 129/62 131/62 147/66 H Pulse Oximetry 97 98 97 MDM - Dizziness <Alfredo Morton PA-C - Last Filed: 12/29/21 19:44> Lab Data Result diagrams: 01/02/22 05:50 01/02/22 05:50 Labs: Lab Results 12/29/21 12/29/21 12/29/21 Range/Units 12:02 12:02 12:02 WBC 6.5 (4.5-11.0) X10^3/uL RBC 2.86 L (4.5-5.9) X10^6/uL Hgb 8.7 L (13.5-17.5) g/dL Hct 25.8 L (41-53) % MCV 90.2 (80-100) fL MCH 30.3 (26-34) PG MCHC 33.6 (30-36) % RDW 18.2 H (11.6-14.8) % Plt Count 226 (150-400) X10^3/uL Neut % (Auto) 82.4 H (50-75) % Lymph % (Auto) 4.9 L (25-40) % [place] % (Auto) 10.1 (3-14) % Eos % (Auto) 2.0 (2-4) % Baso % (Auto) 0.6 (0-2) % Neut # (Auto) 5400 (2868-1018) /uL Lymph # (Auto) 300 L (7192-2530) /uL [place] # (Auto) 700 (0-900) /uL Eos # (Auto) 100 (0-450) /uL Baso # (Auto) 0 (0-100) /uL Sodium 137 (137-145) mmol/L Potassium 3.7 (3.4-5.1) mmol/L Chloride 103 (98-107) mmol/L Carbon Dioxide 27 (22-32) mmol/L BUN 33 H (9-20) mg/dL Creatinine 1.22 (0.66-1.25) mg/dL Estimated GFR 57.4 L (>60) mL/min BUN/Creatinine Ratio 27.0 H (6-22) Glucose 122 H (80-110) mg/dL Hemoglobin A1c (4.0-6.0) % Calcium 8.5 (8.4-10.2) mg/dL Magnesium (1.6-2.3) mg/dL Total Bilirubin 0.4 (0.2-1.3) mg/dL AST 21 (17-59) IU/L ALT 16 (<50) IU/L Alkaline Phosphatase 72 (38-126) U/L Total Creatine Kinase 63 (55-170) U/L CK-MB (CK-2) TNP CK-MB (CK-2) Rel Index TNP Troponin I < 0.012 (0.01-0.034) ng/mL Total Protein 7.2 (6.3-8.2) g/dL Albumin 3.9 (3.5-5.0) g/dL Globulin 3.3 (1.7-4.1) g/dL Albumin/Globulin Ratio 1.2 (1.0-2.8) Lipase 67 (23-300) U/L Procalcitonin 0.06 (<0.5) ng/mL TSH 2.36 (0.47-4.68) uIU/mL Blood Type Antibody Screen Crossmatch 0312/29/21 12/29/21 Range/Units 12:02 12:02 13:00 WBC (4.5-11.0) X10^3/uL RBC (4.5-5.9) X10^6/uL Hgb (13.5-17.5) g/dL Hct (41-53) % MCV (80-100) fL MCH (26-34) PG MCHC (30-36) % RDW (11.6-14.8) % Plt Count (150-400) X10^3/uL Neut % (Auto) (50-75) % Lymph % (Auto) (25-40) % [place] % (Auto) (3-14) % Eos % (Auto) (2-4) % Baso % (Auto) (0-2) % Neut # (Auto) (7797-0688) /uL Lymph # (Auto) (7736-8147) /uL [place] # (Auto) (0-900) /uL Eos # (Auto) (0-450) /uL Baso # (Auto) (0-100) /uL Sodium (137-145) mmol/L Potassium (3.4-5.1) mmol/L Chloride (98-107) mmol/L Carbon Dioxide (22-32) mmol/L BUN (9-20) mg/dL Creatinine (0.66-1.25) mg/dL Estimated GFR (>60) mL/min BUN/Creatinine Ratio (6-22) Glucose (80-110) mg/dL Hemoglobin A1c 5.9 (4.0-6.0) % Calcium (8.4-10.2) mg/dL Magnesium 2.1 (1.6-2.3) mg/dL Total Bilirubin (0.2-1.3) mg/dL AST (17-59) IU/L ALT (<50) IU/L Alkaline Phosphatase (38-126) U/L Total Creatine Kinase (55-170) U/L CK-MB (CK-2) CK-MB (CK-2) Rel Index Troponin I (0.01-0.034) ng/mL Total Protein (6.3-8.2) g/dL Albumin (3.5-5.0) g/dL Globulin (1.7-4.1) g/dL Albumin/Globulin Ratio (1.0-2.8) Lipase (23-300) U/L Procalcitonin (<0.5) ng/mL TSH (0.47-4.68) uIU/mL Blood Type A Positive Antibody Screen Negative Crossmatch See Detail 12/29/21 Range/Units 14:40 WBC 5.7 (4.5-11.0) X10^3/uL RBC 2.81 L (4.5-5.9) X10^6/uL Hgb 8.5 L (13.5-17.5) g/dL Hct 25.4 L (41-53) % MCV 90.4 (80-100) fL MCH 30.3 (26-34) PG MCHC 33.6 (30-36) % RDW 18.3 H (11.6-14.8) % Plt Count 214 (150-400) X10^3/uL Neut % (Auto) (50-75) % Lymph % (Auto) (25-40) % [place] % (Auto) (3-14) % Eos % (Auto) (2-4) % Baso % (Auto) (0-2) % Neut # (Auto) (0754-0573) /uL Lymph # (Auto) (3405-9764) /uL [place] # (Auto) (0-900) /uL Eos # (Auto) (0-450) /uL Baso # (Auto) (0-100) /uL Sodium (137-145) mmol/L Potassium (3.4-5.1) mmol/L Chloride (98-107) mmol/L Carbon Dioxide (22-32) mmol/L BUN (9-20) mg/dL Creatinine (0.66-1.25) mg/dL Estimated GFR (>60) mL/min BUN/Creatinine Ratio (6-22) Glucose (80-110) mg/dL Hemoglobin A1c (4.0-6.0) % Calcium (8.4-10.2) mg/dL Magnesium (1.6-2.3) mg/dL Total Bilirubin (0.2-1.3) mg/dL AST (17-59) IU/L ALT (<50) IU/L Alkaline Phosphatase (38-126) U/L Total Creatine Kinase (55-170) U/L CK-MB (CK-2) CK-MB (CK-2) Rel Index Troponin I (0.01-0.034) ng/mL Total Protein (6.3-8.2) g/dL Albumin (3.5-5.0) g/dL Globulin (1.7-4.1) g/dL Albumin/Globulin Ratio (1.0-2.8) Lipase (23-300) U/L Procalcitonin (<0.5) ng/mL TSH (0.47-4.68) uIU/mL Blood Type Antibody Screen Crossmatch Imaging Data CT scan - abdomen/pelvis: Radiologist's Impression: PROCEDURE:? CT ABDOMEN PELVIS W CON ? INDICATIONS:? Blood in stool ? TECHNIQUE:? After the administration of IV contrast, axial sections were acquired from the lung bases to the pubic symphysis.? Coronal and sagittal reformats were performed.? For radiation dose reduction, the following was used:? automated exposure control, adjustment of mA and/or kV according to patient size. ? COMPARISON:? [facility], CT, CT CHEST ABD PEL W CON, 06/07/2021, 10:02.? [facility], CT, CT ABDOMEN PELVIS W CON, 08/20/2020, 18:57. ? FINDINGS:? Image quality:? Excellent.? ? Lung bases:? Mild dependent atelectasis.? No pleural effusion.? ? Heart:? Aortic valvular and mitral annular calcifications.? Coronary artery calcifications. ? ? ABDOMEN: Liver:? No focal lesion.? ? Gallbladder:? Cholelithiasis.? ? Biliary ducts:? Unremarkable.? ? Pancreas:? Fatty atrophy.? ? Spleen:? Unremarkable.? ? Adrenal Glands:? No nodule. Kidneys and Ureters:? No hydronephrosis.? Prominent simple appearing renal cysts bilaterally. ? Stomach and Bowel:? Stomach is not distended.? No small bowel obstruction.? There is abnormal thickening of the sigmoid colon in the lower midline abdomen, (2/58), may be slightly more prominent compared to prior CTs dating back to 2019. There appears to be luminal narrowing.? There is extensive diverticulosis.? There is mild surrounding fat stranding.? The appendix is not identified. Peritoneum:? No abnormal intraperitoneal fluid.? No free air.? ? Ventral Wall: ? No hernia.? Small foci of air due to subcutaneous injections.? Abdominal Nodes:? No retroperitoneal or mesenteric adenopathy by size criteria.? Vessels:? Mild ectasia of the abdominal aorta measuring 2.8 cm.? Circumferential calcified atherosclerotic plaque.? 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 ? PELVIS: Pelvic Organs:? Prostatomegaly with fiducial markers.? ? Bladder:? No stones.? ? Pelvic Nodes: No enlarged lymph nodes.? Miscellaneous:? Question fat containing inguinal hernias. ? ? ? Bones:? No suspicious lesion is identified.? There is extensive DDD. ? ? IMPRESSION:? 1. Abnormal thickening of the sigmoid colon with trace surrounding fat stranding.? There appears to be luminal narrowing.? Extensive diverticulosis.? This could represent diverticulitis.? Recommend further evaluation with colonoscopy if not recently performed. ? 2. No small bowel obstruction.? No free fluid. ? 3.Cholelithiasis.? Prostatomegaly with fiducial markers. ? 4. No suspicious osseous lesion is seen.? No adenopathy.? ? ? Dictated by: Job Vargas M.D. on 12/29/2021 at 12:46 ? ? Approved by: Job Vargas M.D. on 12/29/2021 at 12:56 ? MDM Narrative Medical decision making narrative: Discussed with with patient Dr. Montejo's recommendation that we hold his Xarelto for the time being. Remainder of medications are appropriate continued use. Discussed plan for general surgery to perform colonoscopy tomorrow with patient. Additionally, discussed plan for admission with patient. Patient expresses understanding and agrees to plan. Discharge Plan Departure Patient Disposition: Admitted As Inpatient Clinical Impression: Gastrointestinal bleed, Atrial fibrillation Admit Date/Time: 12/29/21 16:29 Admit Provider: Milad Wright
[2021-12-29] MEDS: PANTOPRAZOLE 40 MG VIAL IV ×2 (14:31→20:39)
[2021-12-29 14:48] LABS: Hematocrit 25.4 % (41-53); Hemoglobin 8.5 g/dL (13.5-17.5); Mean Corpuscular HGB Conc 33.6 % (30-36); Mean Corpuscular Hemoglobin 30.3 PG (26-34); Mean Corpuscular Volume 90.4 fL (80-100); Platelet Count 214 X10^3/uL (150-400); Red Blood Cell Count 2.81 X10^6/uL (4.5-5.9); Red Cell Distribution Width 18.3 % (11.6-14.8); White Blood Cell Count 5.7 X10^3/uL (4.5-11.0)
[2021-12-29 17:32] LABS: COVID19 -Nasal RAPID Negative (Negative)
--- NOTE | 2021-12-29 19:48 | P.HP_ITS ---
History of Present Illness History of Present Illness Date Patient Seen: 12/29/21 Time Patient Seen: 20:30 Chief complaint: low blood pressure, dizzy x7 days Narrative: Leandro Allen is a 76-year-old male who presented to the emergency department today for evaluation of dizziness and low blood pressure.? Patient explains that he recently completed radiation therapy for bladder and prostate cancer on 12/05/2021.? He states that he has been experiencing soft stools since completing radiation therapy, and notes that when he does have solid stools they are ?darker than normal?.? He explains that his blood pressure at home was ?in the 80s over 50s? and states that his blood pressure is normally around 130/70.?He states that his dizziness has been worsening over the past week or so and states that his low blood pressure with something and he noticed today.? He does having burning and interrupted urinary flow since the treatment, but has been improving over time. He is anticoagulated daily with Xarelto due to history of atrial fibrillation. He denies fever, chills, chest pain, cough, shortness of breath, nausea, vomiting, constipation, abdominal pain, dysuria, hematuria, syncope, chest pain radiating to the back, or any other concerning symptoms.? When discussing the need for a bowel prep, he states he only has a small bowel movement with urination and has not had a normal bowel movement for a month. He received proton therapy at [facility], sees Dr. Dove locally. Patient has a history of atrial fibrillation and his last echocardiogram of record locally was done in 2019 where he had a 55-60% EF with a moderately dilated right ventricle and mildly reduced right ventricular systolic function, he has mild left ventricular hypertrophy, severely dilated left atrium which appeared to be stable at that time and aortic trileaflet valve with mild regur gitation stable at that time, and right ventricular systolic pressure with increased in severity in 2019. CT ordered in the emergency department did not identify any bowel obstruction, it did note cholelithiasis, prostatomegaly with fiducial markers, but did note thickening of the sigmoid colon with trace surrounding fat stranding and luminal narrowing, extensive diverticulosis questioned diverticulitis, recommending colonoscopy for follow-up. Patient is afebrile, blood pressure 118/59, heart rate 62, respiratory rate 18, oxygen saturation 97% on room air he weighs 99.79 kg with a BMI of 34.4. He is mildly anemic with a hemoglobin and hematocrit of 8.5 and 25.4 respectively, his platelet count is 214, BUN is 33, creatinine 1.22 with a EGFR 57.4, his glucose is 122, A1c is 5.9, liver enzymes are within normal limits, lipase is within normal limits, procalcitonin negative, TSH is 2.36 and COVID-19 PCR is negative. Patient History Medical History Asthma (11/04/11) Atrial flutter (03/20/17) Benign prostatic hyperplasia (11/04/11) Body mass index (BMI) of 30.0 to 39.9 (10/27/11) BPH w urinary obs/LUTS Controlled type 2 diabetes mellitus (10/03/16) Diabetes Diverticulosis of sigmoid colon (03/20/17) Elevated PSA Elevated PSA Essential hypertension (10/27/11) Family history of prostate cancer Gastroesophageal reflux disease (03/01/14) History of primary bladder cancer History of primary bladder cancer History of UTI HLD (hyperlipidemia) Hyperlipidemia (10/27/11) Hypothyroid Lower urinary tract symptoms (LUTS) Malignant neoplasm of urinary bladder (10/11/16) Melena Mild cognitive impairment Neoplasm of uncertain behavior of bladder Osteoarthritis Persistent atrial fibrillation Prostate cancer RBBB plus LA hemiblock Tubular adenoma of colon (03/20/17) Surgical History History of appendectomy History of cardiac radiofrequency ablation History of cystoscopy History of knee surgery Hx of rotator cuff surgery Family & Social History Family History Father CAD (coronary artery disease) Hyperlipidemia Hypertension Hearing impairment Mother CAD (coronary artery disease) Hypertension Hyperlipidemia Cancer Social History: household members spouse Prior Living Arrangements House Safety & Behavioral: Feels Safe in Current Yes Environment Been Physically Hurt or No Threatened By a Person Suicidal Ideation Description None Suicide Plan Description No Plan Tobacco & Substance use: Smoking Status Never smoker alcohol intake never alcohol intake frequency other Substance Use Type does not use Meds Home Medications and Allergies Home Medications Medication Instructions Recorded Confirmed Type magnesium oxide 400 mg (241.3 mg 1 tab PO Q DAY #0 07/31/16 12/29/21 History magnesium) tablet lovastatin 40 mg tablet 40 mg PO Q DAY #90 tab 03/04/17 12/29/21 Rx omeprazole 20 mg capsule,delayed 20 mg PO QDAY #90 cap 03/04/17 12/29/21 Rx release potassium chloride 20 mEq 20 meq PO AMCC #90 tab 05/27/17 12/29/21 Rx tablet,extended release(part/cryst) (Klor-Con M) enalapril maleate 5 mg tablet 5 mg PO QDAY #90 tab 08/03/17 12/29/21 Rx liothyronine 5 mcg tablet 10 mcg PO DAILY tab 04/18/19 12/29/21 History rivaroxaban 20 mg tablet (Xarelto) 20 mg PO QPM 04/18/19 12/29/21 History levothyroxine 75 mcg capsule 75 mcg PO DAILY 01/12/20 12/29/21 History metoprolol succinate 25 mg 12.5 mg PO BEDTIME 01/12/20 12/29/21 History tablet,extended release 24 hr tamsulosin 0.4 mg capsule (Flomax) 0.4 mg PO QPM 10/19/20 12/29/21 History finasteride 5 mg tablet 5 mg PO DAILY #90 tab 03/06/21 12/29/21 Rx amiodarone 200 mg tablet 100 mg PO QPM tab 12/17/21 12/29/21 History Vitamin D3 50 mg PO DAILY 12/29/21 12/29/21 History cartilage 40 mg-collagen II 10 1 tab PO DAILY 12/29/21 12/29/21 History mg-boron 5 mg-hyaluronate 3.3 mg tablet (Adhysteria Health) garlic 5,000 mcg tablet 5,000 mcg PO DAILY 12/29/21 12/29/21 History glucosamine-chondroitin 250 mg-200 1 tab PO DAILY 12/29/21 12/29/21 History mg tablet (Osteo Bi-Flex) horse chestnut 150 mg capsule 150 mg PO BID 12/29/21 12/29/21 History metoprolol succinate 25 mg 25 mg PO DAILY 12/29/21 12/29/21 History tablet,extended release 24 hr omega-3 fatty acids 1,000 mg PO DAILY 12/29/21 12/29/21 History zinc 1 tab PO DAILY 12/29/21 12/29/21 History Allergies Allergy/AdvReac Type Severity Reaction Status Date / Time latex Allergy Verified 12/17/21 10:51 Review of Systems Review of Systems ROS: Yes All systems reviewed with the patient and are negative except as otherwise documented Exam Vital Signs (past 8 hours): - 12/29/21 12:03 12/29/21 12:19 12/29/21 14:39 Temperature 97.2 F L Pulse Rate 73 66 64 Respiratory Rate 72 H 20 24 Blood Pressure 128/59 L 128/59 L 144/65 H Pulse Oximetry 99 95 99 12/29/21 15:00 12/29/21 15:30 12/29/21 16:00 Temperature Pulse Rate 66 61 67 Respiratory Rate 24 10 L 26 H Blood Pressure 129/62 131/62 147/66 H Pulse Oximetry 97 98 97 12/29/21 16:30 12/29/21 17:00 12/29/21 17:35 Temperature 97.4 F L Pulse Rate 66 63 61 Respiratory Rate 24 8 L 18 Blood Pressure 139/64 142/70 H 124/56 L Pulse Oximetry 97 98 99 Oxygen Delivery Method Room Air Oxygen Flow Rate 0 Narrative Exam Narrative: Gen: Alert, oriented, obese 76 y.o. male, slightly contentious Cushionoid appearing HEENT: normocephalic, atraumatic, conjunctiva clear, sclera non-icteric, oral mucosa pink and moist Neck: supple, full ROM, no JVD, trachea is midline Resp: Lungs CTA, non-labored breathing CV: RRR, no murmur or rubs Abd: soft, non-tender, normoactive BTs Skin: no lesions or rashes, dry and intact Neuro: Hard of hearing (states hearing aid is being repaired) alert and oriented X 4 but forgetful. Speech clear and coherent. Extremities: moves all 4 extremities, is ambulatory, negative Cori?s sign Psyche: normal mood and affect. Objective Labs Result Diagrams: 12/29/21 14:40 12/29/21 12:02 Labs: Laboratory Results - last 24 hr 12/29/21 12/29/21 12/29/21 12:02 12:02 12:02 WBC 6.5 RBC 2.86 L Hgb 8.7 L Hct 25.8 L MCV 90.2 MCH 30.3 MCHC 33.6 RDW 18.2 H Plt Count 226 Neut % (Auto) 82.4 H Lymph % (Auto) 4.9 L [place] % (Auto) 10.1 Eos % (Auto) 2.0 Baso % (Auto) 0.6 Neut # (Auto) 5400 Lymph # (Auto) 300 L [place] # (Auto) 700 Eos # (Auto) 100 Baso # (Auto) 0 Sodium 137 Potassium 3.7 Chloride 103 Carbon Dioxide 27 BUN 33 H Creatinine 1.22 Estimated GFR 57.4 L BUN/Creatinine Ratio 27.0 H Glucose 122 H Calcium 8.5 Magnesium Total Bilirubin 0.4 AST 21 ALT 16 Alkaline Phosphatase 72 Total Creatine Kinase 63 CK-MB (CK-2) TNP CK-MB (CK-2) Rel Index TNP Troponin I < 0.012 Total Protein 7.2 Albumin 3.9 Globulin 3.3 Albumin/Globulin Ratio 1.2 Lipase 67 Procalcitonin 0.06 TSH 2.36 SARS-CoV-2 (PCR) Blood Type Antibody Screen 12/29/21 12/29/21 12/29/21 12:02 13:00 14:40 WBC 5.7 RBC 2.81 L Hgb 8.5 L Hct 25.4 L MCV 90.4 MCH 30.3 MCHC 33.6 RDW 18.3 H Plt Count 214 Neut % (Auto) Lymph % (Auto) [place] % (Auto) Eos % (Auto) Baso % (Auto) Neut # (Auto) Lymph # (Auto) [place] # (Auto) Eos # (Auto) Baso # (Auto) Sodium Potassium Chloride Carbon Dioxide BUN Creatinine Estimated GFR BUN/Creatinine Ratio Glucose Calcium Magnesium 2.1 Total Bilirubin AST ALT Alkaline Phosphatase Total Creatine Kinase CK-MB (CK-2) CK-MB (CK-2) Rel Index Troponin I Total Protein Albumin Globulin Albumin/Globulin Ratio Lipase Procalcitonin TSH SARS-CoV-2 (PCR) Blood Type A Positive Antibody Screen Negative 12/29/21 16:35 WBC RBC Hgb Hct MCV MCH MCHC RDW Plt Count Neut % (Auto) Lymph % (Auto) [place] % (Auto) Eos % (Auto) Baso % (Auto) Neut # (Auto) Lymph # (Auto) [place] # (Auto) Eos # (Auto) Baso # (Auto) Sodium Potassium Chloride Carbon Dioxide BUN Creatinine Estimated GFR BUN/Creatinine Ratio Glucose Calcium Magnesium Total Bilirubin AST ALT Alkaline Phosphatase Total Creatine Kinase CK-MB (CK-2) CK-MB (CK-2) Rel Index Troponin I Total Protein Albumin Globulin Albumin/Globulin Ratio Lipase Procalcitonin TSH SARS-CoV-2 (PCR) Negative Blood Type Antibody Screen Assessment & Plan Assessment & Plan narrative: Leandro Allen will be admitted for further evaluation of weakness and heme positive stool. 1. Heme positive stool concerning for an upper GI bleed * Colonoscopy likely will be done late in the day on 12/30 possibly it is 12/31 as the endoscopy suite is fully booked tomorrow * Start bowel prep in the morning * Dr. Ludwig is been consulted * Diabetic carb controlled diet and clears after midnight 2. History of diastolic heart failure with preserved ejection fraction CHADs Va sc score of 6 * Limited echo in the morning * Patient takes an YAMILETH-inhibitor and beta-davonte * has a history of a genesis block, bifascicular block, and a right bundle branch block 3. Diabetes, diet controlled * A1c today is 5.9 * Carb controlled diet, low dose correctional insulin scale 4. Atrial fibrillation, chronic * He normally takes Xarelto for anticoagulation but this will be held pending his procedure * Rhythm controlled with amiodarone, home dose is 100 mg at bedtime 5. Hypothyroidism, chronic * Continue home dose of levothyroxine 75 mcg daily and liothyronine 5 mcg daily 6. Prosthetic hypertrophy, currently being treated for prostate cancer * Continue home dose of finasteride 5 mg daily and tamsulosin 0.4 mg in the evening VTE Prophylaxis: Wells risk score 2.5 Bilateral SCDs Patient is currently anticoagulated on Xarelto, but this is being held pending colonoscopy. Patient is admitted to the inpatient service due to the severity of disease, risks of further disease progression and this stay is expected to exceed 2 midnights. FEN: IV fluids: saline lock, diet: diabetic carb control, NPO in am, labs: CBC, C/BMP, liver enzymes, Mag Consultants: Dr. Ludwig, General Surgery care and involvement in the patient?s care is appreciated. Dispo: probable discharge to home Code status: DNR/DNI as discussed with the patient who identifies his , Loli as his surrogate and POA. [X] I have utilized all available immediate resources to obtain, update, or review of the patient's current medications COVID-19 COVID-19 status: Negative Result date/Date tested (Pos, Neg/Pending): 12/29/21 Scores CHADS-VASc Congestive heart failure: yes Hypertension: yes Age 75 years or older: yes Diabetes mellitus: yes Stroke, TIA, or TE: no Vascular disease: yes Age 65 to 74 years: no Sex category (female): Male CHADS-VASc Score: 6 Wells' Criteria for PE Clinical signs and symptoms of DVT: No PE is #1 Dx or equally likely: No Heart rate > 100: Yes Immobilization at least 3 days or surg in previous 4 weeks: No History of PE or DVT: No Hemoptysis: No Malignancy w/Treatment within 6 months or palliative: Yes Wells' PE Score total: 2.5 Quality VTE Deep Vein Thrombosis/Pulmonary Embolism Present on Admission: No MIPS - Admit I confirm the patient?s Advance Care Plan is present, Code status is documented, Surrogate decision maker is in patient?s record [If Yes, STOP here]: Yes MIPS - DC The patient has current or prior documentation of left ventricular ejection fraction (LVEF) less than 40%, or moderate or severely depressed left ventricular systolic function.: No
[2021-12-29] MEDS: SODIUM CHLORIDE 0.9% 1,000 ML 100 ML IV (19:51)
[2021-12-29 22:11] LABS: Hemoglobin A1C% w Est Avg Glu 5.9 % (4.0-6.0)
--- NOTE | 2021-12-29 22:13 | RT ---
assist with home cpap , pts own unit home setting
[2021-12-30] VITALS (12 sets, daily range): BP systolic 114–138; BP diastolic 46–73; PULSE 55–67; RESP 14–20; TEMP 36.4–37; O2SAT 95–100
--- NOTE | 2021-12-30 | DI.ECHO.S_ITS ---
[facility] +---------+ : : [address] [address] : : : : [phone] : : : : Phone: [phone] Echocardiogram Report + + :Name: ADRIAN WARREN Study Date: 12/31/2021 Height: 67 in : :[facility] ReadingLocation: Weight: 220 lb : : Gender: Male BSA: 2.1 m2 : :: 1945 Age: 76 yrs BP: 118/59 mmHg: :Reason For Study: HYPOTENSION : :Ordering Physician: Eleanor MGformed By: Shirin Calvo : :Referring: RICHARD MG : + + Interpretation Summary The left ventricle is normal in size. Left ventricular systolic function appears normal without focal wall motion abnormalities. The ejection fraction is estimated to be 55-60%. There has been no significant change since the previous exam. Diastolic parameters suggest a pseudonormalization pattern, consistent with probable elevated filling pressures. There has been no significant change since the previous study. The right ventricle is moderately dilated. Right ventricular systolic function is mildly reduced. The right ventricular systolic pressure is estimated to be at least 50 mmHg based on an estimated right atrial pressure of 8 mm Hg. Compared to the prior echo exam, there has been no change in the severity of pulmonary hypertension. The left atrium is severely dilated. The right atrium is severely dilated. There is moderate mitral annular calcification. The mitral valve mean gradient is 2.1 mmHg. There is mild mitral regurgitation. Compared to the prior echo study, there has been a decrease in the severity of mitral regurgitation. There is mild to moderate tricuspid regurgitation. Compared to the prior echo exam, there has been a decrease in TR severity. There is no other significant valvular heart disease. Procedure: A two-dimensional transthoracic echocardiogram with color flow and Doppler was performed in limited views only to assess Hypotension, HFpEF. The study quality was technically adequate. Comparison is made with the echocardiogram of 02/14/2019. The patient was in sinus bradycardia with heart rates between 58-60 bpm during the exam. Left Ventricle: The left ventricle is normal in size. Left ventricular wall thickness is mildly increased. Left ventricular systolic function appears normal without focal wall motion abnormalities. The ejection fraction is estimated to be 55-60%. There has been no significant change since the previous exam. Diastolic parameters suggest a pseudonormalization pattern, consistent with probable elevated filling pressures. There has been no significant change since the previous study. Right Ventricle: The right ventricle is moderately dilated. Right ventricular systolic function is mildly reduced. Atria: The left atrium is severely dilated. The right atrium is severely dilated. Mitral Valve: There is moderate mitral annular calcification. The mitral valve mean gradient is 2.1 mmHg. There is mild mitral regurgitation. Compared to the prior echo study, there has been a decrease in the severity of mitral regurgitation. Aortic Valve: There is mild aortic valve sclerosis. The aortic valve is mildly calcified. There is mildly reduced leaflet mobility. There is no aortic valve stenosis. There is trace aortic regurgitation. Tricuspid Valve: The tricuspid valve leaflets are thin and pliable. There is mild to moderate tricuspid regurgitation. Compared to the prior echo exam, there has been a decrease in TR severity. The right ventricular systolic pressure is estimated to be at least 50 mmHg based on an estimated right atrial pressure of 8 mm Hg. Compared to the prior echo exam, there has been no change in the severity of pulmonary hypertension. Pulmonic Valve: The pulmonic valve is not well visualized. There is no other significant valvular heart disease. Great Vessels: The IVC is dilated (diameter is greater than 2.1 cm) yet it collapses greater than 50% with a sniff. This suggests a right atrial pressure of 8 mm Hg. Pericardium/ Pleura There is no pericardial effusion. There is no pleural effusion. MMode/2D Measurements & Calculations LVIDd: 4.7 cm LVOT diam: 2.2 cm LVIDs: 3.0 cm FS: 36.3 % IVSd: 1.2 cm LVPWd: 1.4 cm LV justice. diameter/BSA (cm/m^2): 2.2 LV sys. diameter/BSA (cm/m^2): 1.4 LA A2 area: 38.8 cm2 RA long axis: 7.0 cm LA A4 area: 38.5 cm2 RA area: 32.2 cm2 LA length (vol): 7.8 cm RA vol: 127.0 ml LA vol: 163.0 ml RA : 60.3 ml/m2 LA vol index: 77.4 ml/m2 IVC diam: 2.1 cm RVD1 (basal): 5.0 cm TAPSE: 1.5 cm Doppler Measurements & Calculations Ao V2 max: 161.9 cm/sec LVOT Max [place]on: 70.9 cm/sec Ao V2 mean: 110.0 cm/sec LV V1 max P.0 mmHg Ao max P.5 mmHg LV V1 VTI: 16.6 cm Ao mean P.5 mmHg IZABEL(I,D): 1.7 cm2 Ao V2 VTI: 36.9 cm IZABEL(V,D): 1.7 cm2 sev ratio: 0.45 IZABEL indexed to BSA (cm^2/m^2): 0.82 MV E max keyon: 109.6 cm/sec TR max keyon: 323.0 cm/sec MV A max keyon: 67.5 cm/sec TR max P.7 mmHg MV E/A: 1.6 Med Peak E' Keyon: 5.2 cm/sec E/E' med: 21.0 Lat Peak E' Keyon: 7.8 cm/sec E/E' lat: 14.1 E/e' average: 17.5 MV dec time: 0.18 sec MVA(VTI): 1.8 cm2 MV V2 mean: 67.4 cm/sec SV(LVOT): 63.9 ml MV mean P.1 mmHg MV V2 VTI: 35.1 cm Reading Physician:08:44 AM
[2021-12-30 05:36] LABS: Add Manual Diff / Slide Review NO; Basophils Absolute Auto 0 /uL (0-100); Basophils Percent Auto 0.6 % (0-2); Eosinophils Absolute Auto 100 /uL (0-450); Eosinophils Percent Auto 2.5 % (2-4); Hematocrit 22.6 % (41-53); Hemoglobin 7.6 g/dL (13.5-17.5); Lymphocytes Absolute Auto 400 /uL (1100-4500); Lymphocytes Percent Auto 7.9 % (25-40); Mean Corpuscular HGB Conc 33.4 % (30-36); Mean Corpuscular Volume 89.7 fL (80-100); Monocytes Absolute Auto 500 /uL (0-900); Monocytes Percent Auto 10.7 % (3-14); Neutrophils Absolute Auto 3600 /uL (1500-7000); Neutrophils Percent Auto 78.3 % (50-75); Platelet Count 198 X10^3/uL (150-400); Red Blood Cell Count 2.52 X10^6/uL (4.5-5.9); White Blood Cell Count 4.6 X10^3/uL (4.5-11.0)
[2021-12-30 05:48] LABS: Blood Urea Nitrogen 26 mg/dL (9-20); Calcium 7.8 mg/dL (8.4-10.2); Carbon Dioxide 25 mmol/L (22-32); Chloride 106 mmol/L (98-107); Estimated Glomerular Filt Rate > 60.0 mL/min (>60); Glucose 101 mg/dL (80-110); HEMOLYSIS < 15 (0-50); Potassium 3.8 mmol/L (3.4-5.1); Sodium 138 mmol/L (137-145)
[2021-12-30] MEDS: SODIUM CHLORIDE 0.9% 1,000 ML 100 ML IV (05:53)
[2021-12-30] MEDS: SODIUM CHLORIDE 0.9% 1,000 ML 200 ML IV (07:21)
[2021-12-30] MEDS: FINASTERIDE 5 MG TABLET PO (09:26)
[2021-12-30] MEDS: PEG3350/SOD SULF,BICARB,CL/KCL 4,000 ML SOLUTION 2000 ML PO (09:26)
[2021-12-30] MEDS: PANTOPRAZOLE 40 MG VIAL IV ×2 (09:26→21:18)
[2021-12-30] MEDS: METOPROLOL ER 25 MG TABLET PO (09:27)
--- NOTE | 2021-12-30 09:50 | PM.PN.1 ---
Subjective Subjective Date Patient Seen: 12/30/21 Time Patient Seen: 09:50 Interval history: Leandro Allen is a 74-year-old male with a past medical history significant for hypertension, hyperlipidemia, paroxysmal atrial fibrillation/flutter status post ablation and on Xarelto, diabetes mellitus type 2, non-insulin using and diet controlled, COPD/asthma, obstructive sleep apnea on CPAP, GERD, and bladder tumor status post resection with recent prostate cancer as well admitted with GI bleeding. H/h down to 7.6 this AM but patient denies chest pain, shortness of breath, abdominal pain, cough, LE edema. No nausea or vomiting today. Plan for colonoscopy tomorrow with prep today per surgery scheduling. Exam Vital Signs (past 8 hours): - 12/30/21 05:00 12/30/21 08:17 12/30/21 08:41 Temperature 97.9 F 98.6 F Pulse Rate 67 62 Respiratory Rate 18 18 Blood Pressure 120/64 114/61 Pulse Oximetry 99 95 98 Oxygen Delivery Method Room Air,CPAP Oxygen Flow Rate 0 Narrative Exam Narrative: General:? Patient is well developed and well nourished, in no distress at this time. Slight pallor. HEENT:? Normocephalic, atraumatic, extraocular muscles intact, oral pharynx is clear and mucous membranes are moist. Neck: supple and symmetric, trachea is midline, no cervical adenopathy. Negative for JVD Chest:? Normal AP diameter and contour without kyphoscoliosis, no tachypnea, equal chest rise bilaterally. Lungs:? CTA b/l no wheezing rhonchi or rales. Cardio:?RRR no m/r/g. Abdomen: S NT ND. No CVA tenderness. Musculoskeletal:? Muscle strength and tone are equal within normal limits, no deformity. Extremities: No edema or joint effusions. No cyanosis or clubbing. Skin:? Pale,? Warm to touch,dry and intact without rashes, ulcerations or petechiae.? Neuro:? Alert and orientated x3,? sensation to touch intact in all extremities, no gross deficits noted of cranial nerves. Psych:? Patient has a well-kept appearance, appropriate affect, mental status attitude thought context and judgment are appropriate for age. Objective Labs Result Diagrams: 12/30/21 04:35 12/30/21 04:35 Labs: Laboratory Results - last 24 hr 12/29/21 12/29/21 12/29/21 12:02 12:02 12:02 WBC 6.5 RBC 2.86 L Hgb 8.7 L Hct 25.8 L MCV 90.2 MCH 30.3 MCHC 33.6 RDW 18.2 H Plt Count 226 Neut % (Auto) 82.4 H Lymph % (Auto) 4.9 L Larue % (Auto) 10.1 Eos % (Auto) 2.0 Baso % (Auto) 0.6 Neut # (Auto) 5400 Lymph # (Auto) 300 L Larue # (Auto) 700 Eos # (Auto) 100 Baso # (Auto) 0 Sodium 137 Potassium 3.7 Chloride 103 Carbon Dioxide 27 BUN 33 H Creatinine 1.22 Estimated GFR 57.4 L BUN/Creatinine Ratio 27.0 H Glucose 122 H Hemoglobin A1c Calcium 8.5 Magnesium Total Bilirubin 0.4 AST 21 ALT 16 Alkaline Phosphatase 72 Total Creatine Kinase 63 CK-MB (CK-2) TNP CK-MB (CK-2) Rel Index TNP Troponin I < 0.012 Total Protein 7.2 Albumin 3.9 Globulin 3.3 Albumin/Globulin Ratio 1.2 Lipase 67 Procalcitonin 0.06 TSH 2.36 SARS-CoV-2 (PCR) Blood Type Antibody Screen 12/29/21 12/29/21 12/29/21 12:02 12:02 13:00 WBC RBC Hgb Hct MCV MCH MCHC RDW Plt Count Neut % (Auto) Lymph % (Auto) Larue % (Auto) Eos % (Auto) Baso % (Auto) Neut # (Auto) Lymph # (Auto) Larue # (Auto) Eos # (Auto) Baso # (Auto) Sodium Potassium Chloride Carbon Dioxide BUN Creatinine Estimated GFR BUN/Creatinine Ratio Glucose Hemoglobin A1c 5.9 Calcium Magnesium 2.1 Total Bilirubin AST ALT Alkaline Phosphatase Total Creatine Kinase CK-MB (CK-2) CK-MB (CK-2) Rel Index Troponin I Total Protein Albumin Globulin Albumin/Globulin Ratio Lipase Procalcitonin TSH SARS-CoV-2 (PCR) Blood Type A Positive Antibody Screen Negative 12/29/21 12/29/21 12/30/21 14:40 16:35 04:35 WBC 5.7 4.6 RBC 2.81 L 2.52 L Hgb 8.5 L 7.6 L Hct 25.4 L 22.6 L MCV 90.4 89.7 MCH 30.3 30.0 MCHC 33.6 33.4 RDW 18.3 H 18.0 H Plt Count 214 198 Neut % (Auto) 78.3 H Lymph % (Auto) 7.9 L Larue % (Auto) 10.7 Eos % (Auto) 2.5 Baso % (Auto) 0.6 Neut # (Auto) 3600 Lymph # (Auto) 400 L Larue # (Auto) 500 Eos # (Auto) 100 Baso # (Auto) 0 Sodium Potassium Chloride Carbon Dioxide BUN Creatinine Estimated GFR BUN/Creatinine Ratio Glucose Hemoglobin A1c Calcium Magnesium Total Bilirubin AST ALT Alkaline Phosphatase Total Creatine Kinase CK-MB (CK-2) CK-MB (CK-2) Rel Index Troponin I Total Protein Albumin Globulin Albumin/Globulin Ratio Lipase Procalcitonin TSH SARS-CoV-2 (PCR) Negative Blood Type Antibody Screen 12/30/21 04:35 WBC RBC Hgb Hct MCV MCH MCHC RDW Plt Count Neut % (Auto) Lymph % (Auto) Larue % (Auto) Eos % (Auto) Baso % (Auto) Neut # (Auto) Lymph # (Auto) Larue # (Auto) Eos # (Auto) Baso # (Auto) Sodium 138 Potassium 3.8 Chloride 106 Carbon Dioxide 25 BUN 26 H Creatinine 1.04 Estimated GFR > 60.0 BUN/Creatinine Ratio 25.0 H Glucose 101 Hemoglobin A1c Calcium 7.8 L Magnesium Total Bilirubin AST ALT Alkaline Phosphatase Total Creatine Kinase CK-MB (CK-2) CK-MB (CK-2) Rel Index Troponin I Total Protein Albumin Globulin Albumin/Globulin Ratio Lipase Procalcitonin TSH SARS-CoV-2 (PCR) Blood Type Antibody Screen [facility] Medical History Asthma (11/04/11) Atrial flutter (03/20/17) Benign prostatic hyperplasia (11/04/11) Body mass index (BMI) of 30.0 to 39.9 (10/27/11) BPH w urinary obs/LUTS Controlled type 2 diabetes mellitus (10/03/16) Diabetes Diverticulosis of sigmoid colon (03/20/17) Elevated PSA Elevated PSA Essential hypertension (10/27/11) Family history of prostate cancer Gastroesophageal reflux disease (03/01/14) History of primary bladder cancer History of primary bladder cancer History of UTI HLD (hyperlipidemia) Hyperlipidemia (10/27/11) Hypothyroid Lower urinary tract symptoms (LUTS) Malignant neoplasm of urinary bladder (10/11/16) Melena Mild cognitive impairment Neoplasm of uncertain behavior of bladder Osteoarthritis Persistent atrial fibrillation Prostate cancer RBBB plus LA hemiblock Tubular adenoma of colon (03/20/17) Surgical History History of appendectomy History of cardiac radiofrequency ablation History of cystoscopy History of knee surgery Hx of rotator cuff surgery Family History Father CAD (coronary artery disease) Hyperlipidemia Hypertension Hearing impairment Mother CAD (coronary artery disease) Hypertension Hyperlipidemia Cancer Social History marital status: household members: spouse occupational status: previously employed Smoking Status: Never smoker alcohol intake: never substance use type: does not use caffeine: Yes Assessment & Plan Assessment & Plan narrative: Leandro Allen is a 74-year-old male with a past medical history significant for hypertension, hyperlipidemia, paroxysmal atrial fibrillation/flutter status post ablation and on Xarelto, diabetes mellitus type 2, non-insulin using and diet controlled, COPD/asthma, obstructive sleep apnea on CPAP, GERD, and bladder tumor status post resection admitted with GI bleeding. 1. GI bleed with acute blood loss anemia. - CLD today, prep today with plan for endoscopy tomorrow with general surgery. - can hold IV fluids for now. - repeat h/h this evening, Hg now to 7.6. Goal >7. - patient's chronic anticoagulation is contributing to bleeding and is currently held. 2. Chronic obstructive pulmonary disease and restrictive lung disease, present on admission.? Stable. -Does not represent COPD exacerbation. -PFTs on 04/19/2019 demonstrated mild COPD and restrictive disease with decreased diffusion capacity. -Continue respiratory therapy for evaluation and treatment. Continue Albuterol MDI inhaler with spacer 2 puffs every 4 hours as needed. 3. Diabetes mellitus type 2, non-insulin using and diet-controlled, present on admission.? Stable. - A1c 5.9%. Will monitor with morning BMP given good control and adjust if hypergylcemic. 4. Chronic atrial fibrillation/flutter status post ablation, present on admission.? Stable. -The patient denies complaints of chest pain or palpitations. -Continue rhythm control with amiodarone 200 mg daily, rate control with metoprolol succinate 25 mg daily in the morning and 12.5 mg daily at bedtime and anticoagulation with Xarelto 20 mg daily is held as noted above. 5. Hypertension, chronic, present on admission.? Stable. -Blood pressure is adequately controlled -Hold home enalapril daily given acute blood loss anemia and normotension. Continue metoprolol succinate 25 mg daily in the morning and 12.5 mg daily at bedtime for rate control. 6. Hyperlipidemia, chronic, present on admission.? Stable. -Continue home lovastatin 40 mg daily. 7. Hypothyroidism, chronic, present on admission.? Stable. -TSH normal at 1.56. -Continue levothyroxine 75 mcg daily and liothyronine 10 mcg daily. 8. Prostate and bladder cancer, chronic, present on admission.? Stable. -Continue tamsulosin 0.8 mg daily -recent proton therapy for prostate CA. S/p surgery for bladder (urothelial) cancer as well. 9. GERD, chronic, present on admission.? Stable. -Continue home PPI with Protonix 20 mg daily. 10. Obstructive sleep apnea on CPAP, chronic, present on admission.? Stable. -Continue home CPAP per RT protocol. 11. Chronic diastolic heart failure - no current symptoms. Avoid aggressive fluids. Code:DNR Time Spent With Patient Critical Care time: I spent a total of [] minutes of critical care time on this patient's care today; this time is exclusive of procedural time. Quality VTE Deep Vein Thrombosis/Pulmonary Embolism Present on Admission: No
--- NOTE | 2021-12-30 14:03 | CM.DANOTE ---
Patient is a 76 yo male who was admitted on 12/29/21 for low bp, dizzy. Pt has [facility] and [employer] for insurance and his PCP is Dr. Bigg Orona. EMR was reviewed. Per , pt with recent radiation for bladder/prostrate CA with Dr. Dove at [facility] and EF of 55% at baseline and admitted for GI Bleed. Per Surgeon, pt to have colonoscopy when they have an opening tomorrow. Per [facility], pt on the scheduled for 1515 tomorrow. SW met bedside with pt and explained role and he confirms he lives in [place] with his and is mostly independent at baseline with ADL's but since starting radiation for cancer he has not been able to sleep for longer than an hour at night as he has to get up every hour to use the restroom and has been feeling fatigued from lack of sleep. Pt states his niece Luz Marina who lives in [facility] but works at [employer] has been staying with them 3-4 days a week for work and then goes home on her off days. Pt states his is in pretty good health and can assist if needed and they also have a small condo in [place] that they have not been too at all during COVID pandemic and have mostly stayed home the past two years due to pt's health. Pt denies any hx of HH or SNF and plans to d/c home via spouse POV after colonoscopy tomorrow and does not anticipate any needs. Plan: SW to follow after pt's colonoscopy tomorrow afternoon to confirm safe plan of home with spouse and any further identified needs. JOANNE Henao Discharge Planning/Care Management CM Discharge Assessment Start: 12/30/21 14:01 Freq: Status: Active Protocol: Document 12/30/21 14:01 (Rec: 12/30/21 14:03 [id number]) Discharge Planning Assessment Assigned Ultrasonic Tester JOANNE Agustin DPOA/Assigned Designee Name Zafar Raza Contact Information [phone] Advance Directives? Yes Advance Directives on File Yes History Provided By Patient,Medical Record Has Patient been admitted in last 30 No days? Prior Living Arrangements House Household Members spouse Type of transporation used prior to Drives own vehicle admit Independent with ADL's Yes Is patient alert and oriented? Yes Needs Assistance With Home Chores / Shopping Caregiver for Another No Community Services used prior to IV Therapy admission: Comment Oncologist Dr Dove at [facility] Comment walks on treadmill daily. Barriers to Discharge No Discharge Plan Home Transportation Arrangement Spouse Referrals Initiated None needed Whiteboard Updated in Patient Room with Yes name and ext. # of Ultrasonic Tester Review Status In Process Please Provide Date Initial DC 12/30/21 Assessment Was Performed Next Review Type Continued Stay Review
--- NOTE | 2021-12-30 14:12 | PC.NURSE ---
Addendum entered by Celestina Black R.N. 12/30/21 16:40: Patient continues to question everything that we do for him. He is cooperative with care and takes his medications. He has had another bowel movement that is brown in color and somewhat loose. Patient napping with his cpap in place. Original Note: Patient took his own thyroid medications this morning, he was told that we either need to lock up his medications or have his bring them home. Patient questions everything that we do for him. He has asked many times why he needs to take the go lytely for his colonoscopy tomorrow, and states that he is on clears now and he should not be having bowel movements. Patient started his prep at 1000 and has had two brown stools out. He is comfortable and lying in bed.
[2021-12-30] MEDS: AMIODARONE 200 MG TABLET 100 MG PO (17:25)
[2021-12-30] MEDS: TAMSULOSIN 0.4 MG CAPSULE PO (17:25)
[2021-12-30 18:31] LABS: Hemoglobin 7.7 g/dL (13.5-17.5)
[2021-12-30] MEDS: METOPROLOL ER 25 MG TABLET 12.5 MG PO (21:17)
[2021-12-30] MEDS: ATORVASTATIN 20 MG TABLET 10 MG PO (21:17)
--- NOTE | 2021-12-30 21:28 | PC.NURSE ---
END LATHE OPERATOR note: patient refused blood sugar at 9pm. He asked why do we keep doing this? It's the same for the last 10 years, 101 or 102. I said well it's ordered. He refused. I told NIRAJ Reece.
[2021-12-31] VITALS (15 sets, daily range): BP systolic 101–129; BP diastolic 43–69; PULSE 55–68; RESP 16–20; TEMP 36.1–36.6; O2SAT 96–99
[2021-12-31 05:12] LABS: Add Manual Diff / Slide Review NO; Basophils Absolute Auto 0 /uL (0-100); Basophils Percent Auto 0.6 % (0-2); Eosinophils Absolute Auto 100 /uL (0-450); Hematocrit 21.9 % (41-53); Hemoglobin 7.2 g/dL (13.5-17.5); Lymphocytes Absolute Auto 300 /uL (1100-4500); Lymphocytes Percent Auto 7.1 % (25-40); Mean Corpuscular Hemoglobin 29.8 PG (26-34); Mean Corpuscular Volume 90.2 fL (80-100); Monocytes Absolute Auto 500 /uL (0-900); Monocytes Percent Auto 11.5 % (3-14); Neutrophils Absolute Auto 3600 /uL (1500-7000); Neutrophils Percent Auto 78.8 % (50-75); Platelet Count 192 X10^3/uL (150-400); Red Blood Cell Count 2.42 X10^6/uL (4.5-5.9); Red Cell Distribution Width 17.7 % (11.6-14.8); White Blood Cell Count 4.6 X10^3/uL (4.5-11.0)
[2021-12-31 05:21] LABS: BUN Creatinine Ratio 22.9 (6-22); Blood Urea Nitrogen 22 mg/dL (9-20); Calcium 7.7 mg/dL (8.4-10.2); Carbon Dioxide 28 mmol/L (22-32); Chloride 103 mmol/L (98-107); Estimated Glomerular Filt Rate > 60.0 mL/min (>60); Glucose 106 mg/dL (80-110); HEMOLYSIS < 15 (0-50); Potassium 3.9 mmol/L (3.4-5.1); Sodium 137 mmol/L (137-145)
--- NOTE | 2021-12-31 08:09 | PC.NURSE ---
Addendum entered by Celestina Black R.N. 12/31/21 19:10: Patients unit of blood finished at 1810. He is resting comfortably and drinking is bowel prep. He will be on clear liquids until 4am and then npo. Addendum entered by Celestina Black R.N. 12/31/21 16:13: Patients unit of PRBCs up and infusing. Patient is tolerating this well. He is also drinking his prep to prepare for his colonoscopy now scheduled for tomorrow. Addendum entered by Celestina Black R.N. 12/31/21 14:11: RN just called to see how patients bowel prep is going , he still has brownish-green soft stool when going to the bathroom. Patient may have to stay another night or discharge home and do procedure as outpatient. Addendum entered by Celestina Black R.N. 12/31/21 13:03: Patient does not understand that he will come back up to the floor after his colonoscopy and then be discharged if this is ordered for him. He questions everything and then argues with staff when they tell him what he doesnt want to hear. He refused his blood glucose check. Original Note: Assess- Patient is alert and oriented x3, he occasionally seems confused. Leandro's globin and crit are 7.2 and 21.9. He has finished his prep for colonoscopy and is now having stools that are green in color, so they are becoming field associate. Patient is independent to the bathroom, he is not having any dizziness or feeling weak when up.
[2021-12-31] MEDS: METOPROLOL ER 25 MG TABLET PO (09:50)
[2021-12-31] MEDS: FINASTERIDE 5 MG TABLET PO (09:50)
[2021-12-31] MEDS: PANTOPRAZOLE 40 MG VIAL IV ×2 (09:50→20:11)
--- NOTE | 2021-12-31 14:29 | CM.DPC ---
DCP Cont: Discussed patient during team rounds. Patient was admitted for GI bleed. He is to be having his colonoscopy today at 1515. According to notes, patient is independent at baseline, lives at home with spouse, and has niece that stays with them a few nights a week. P: DCP to continue to follow for any needs. Janeen Ashton RN/Foundation Stage Teacher
[2021-12-31] MEDS: PEG3350/SOD SULF,BICARB,CL/KCL 4,000 ML SOLUTION 2000 ML PO (15:50)
[2021-12-31] MEDS: TAMSULOSIN 0.4 MG CAPSULE PO (18:00)
[2021-12-31] MEDS: AMIODARONE 200 MG TABLET 100 MG PO (18:00)
--- NOTE | 2021-12-31 19:01 | P.PN_ITS ---
Subjective Subjective Date Patient Seen: 12/31/21 Interval history: 74 y/o male admitted for GI bleed. Bowel prep was not sufficient and patient not able to have C-Scope today. Hemoglobin down to 7. Patient refusing blood transfusion and wants to discharge home for outpatient procedure. After further discussion the patient is agreeable to a transfusion and will remain in the hospital for C-Scope. He is passing brown stool Exam Vital Signs (past 8 hours): - 12/31/21 12:00 12/31/21 13:15 12/31/21 15:28 Temperature 97.7 F 97.8 F 97.0 F L Pulse Rate 59 L 68 55 L Respiratory Rate 18 20 16 Blood Pressure 101/54 L 115/57 L 124/43 L Pulse Oximetry 98 99 12/31/21 15:53 12/31/21 17:00 12/31/21 18:10 Temperature 97.3 F L 97.3 F L 97.3 F L Pulse Rate 61 61 62 Respiratory Rate 18 18 18 Blood Pressure 116/69 116/69 125/58 L Pulse Oximetry 98 Oxygen Delivery Method Room Air Oxygen Flow Rate 0 Narrative Exam Narrative: Elderly male sitting in a chair Resp Other: Lungs: clear to auscultation Cardio Other: CV: RRR nl sl S2 GI Other: Abd: soft/ non tender/ non distended Extrem Other: No edema Objective Labs Result Diagrams: 12/31/21 04:40 12/31/21 04:40 Labs: Laboratory Results - last 24 hr 12/29/21 12/31/21 12/31/21 13:00 04:40 04:40 WBC 4.6 RBC 2.42 L Hgb 7.2 L Hct 21.9 L MCV 90.2 MCH 29.8 MCHC 33.0 RDW 17.7 H Plt Count 192 Neut % (Auto) 78.8 H Lymph % (Auto) 7.1 L Maverick % (Auto) 11.5 Eos % (Auto) 2.0 Baso % (Auto) 0.6 Neut # (Auto) 3600 Lymph # (Auto) 300 L Maverick # (Auto) 500 Eos # (Auto) 100 Baso # (Auto) 0 Sodium 137 Potassium 3.9 Chloride 103 Carbon Dioxide 28 BUN 22 H Creatinine 0.96 Estimated GFR > 60.0 BUN/Creatinine Ratio 22.9 H Glucose 106 Calcium 7.7 L Blood Type A Positive Antibody Screen Negative Crossmatch See Detail [facility] Medical History Asthma (11/04/11) Atrial flutter (03/20/17) Benign prostatic hyperplasia (11/04/11) Body mass index (BMI) of 30.0 to 39.9 (10/27/11) BPH w urinary obs/LUTS Controlled type 2 diabetes mellitus (10/03/16) Diabetes Diverticulosis of sigmoid colon (03/20/17) Elevated PSA Elevated PSA Essential hypertension (10/27/11) Family history of prostate cancer Gastroesophageal reflux disease (03/01/14) History of primary bladder cancer History of primary bladder cancer History of UTI HLD (hyperlipidemia) Hyperlipidemia (10/27/11) Hypothyroid Lower urinary tract symptoms (LUTS) Malignant neoplasm of urinary bladder (10/11/16) Melena Mild cognitive impairment Neoplasm of uncertain behavior of bladder Osteoarthritis Persistent atrial fibrillation Prostate cancer RBBB plus LA hemiblock Tubular adenoma of colon (03/20/17) Surgical History History of appendectomy History of cardiac radiofrequency ablation History of cystoscopy History of knee surgery Hx of rotator cuff surgery Family History Father CAD (coronary artery disease) Hyperlipidemia Hypertension Hearing impairment Mother CAD (coronary artery disease) Hypertension Hyperlipidemia Cancer Social History marital status: household members: spouse occupational status: previously employed Smoking Status: Never smoker alcohol intake: never substance use type: does not use caffeine: Yes Assessment & Plan Assessment & Plan narrative: Leandro Allen is a 74-year-old male with a past medical history significant for hypertension, hyperlipidemia, paroxysmal atrial fibrillation/flutter status post ablation and on Xarelto, diabetes mellitus type 2, non-insulin using and diet controlled, COPD/asthma, obstructive sleep apnea on CPAP, GERD, and bladder tumor status post resection admitted with GI bleeding. 1. GI bleed with acute blood loss anemia. ?- CLD today, prep today with plan for endoscopy tomorrow with general surgery. ?- can hold IV fluids for now. ?- repeat h/h this evening, Hg now to 7.6. Goal >7. ?- patient's chronic anticoagulation is contributing to bleeding and is currently held. -transfuse 1 unit, goal Hemoglobin above 8 -continue bowel prep -colonoscopy tomorrow -will re check H/H after transfusion 2. Chronic obstructive pulmonary disease and restrictive lung disease, present on admission.? Stable. -Does not represent COPD exacerbation. -PFTs on 04/19/2019 demonstrated mild COPD and restrictive disease with decreased diffusion capacity. -Continue respiratory therapy for evaluation and treatment. Continue Albuterol MDI inhaler with spacer 2 puffs every 4 hours as needed. 3. Diabetes mellitus type 2, non-insulin using and diet-controlled, present on admission.? Stable. ?- A1c 5.9%. Will monitor with morning BMP given good control and adjust if hypergylcemic. 4. Chronic atrial fibrillation/flutter status post ablation, present on admissio n.? Stable. -The patient denies complaints of chest pain or palpitations. -Continue rhythm control with amiodarone 200 mg daily, rate control with metoprolol succinate 25 mg daily in the morning and 12.5 mg daily at bedtime 5. Hypertension, chronic, present on admission.? Stable. -Blood pressure is adequately controlled -Hold home enalapril daily given acute blood loss anemia and normotension. C ontinue metoprolol succinate 25 mg daily in the morning and 12.5 mg daily at bedtime for rate control. 6. Hyperlipidemia, chronic, present on admission.? Stable. -Continue home lovastatin 40 mg daily. 7. Hypothyroidism, chronic, present on admission.? Stable. -TSH normal at 1.56. -Continue levothyroxine 75 mcg daily and liothyronine 10 mcg daily. 8. Prostate and bladder cancer, chronic, present on admission.? Stable. -Continue tamsulosin 0.8 mg daily -recent proton therapy for prostate CA. S/p surgery for bladder (urothelial) cancer as well. 9. GERD, chronic, present on admission.? Stable. -Continue home PPI with Protonix 20 mg daily. 10. Obstructive sleep apnea on CPAP, chronic, present on admission.? Stable. -Continue home CPAP per RT protocol. 11. Chronic diastolic heart failure ?- no current symptoms. Avoid aggressive fluids. Time Spent With Patient Critical Care time: I spent a total of [] minutes of critical care time on this patient's care today; this time is exclusive of procedural time. Quality VTE Deep Vein Thrombosis/Pulmonary Embolism Present on Admission: No
[2021-12-31] MEDS: METOPROLOL ER 25 MG TABLET 12.5 MG PO (20:10)
[2021-12-31] MEDS: ATORVASTATIN 20 MG TABLET 10 MG PO (20:11)
[2021-12-31 21:05] LABS: Hemoglobin 8.2 g/dL (13.5-17.5)
[2021-12-31 21:11] LABS: Hematocrit 24.4 % (41-53)
[2022-01-01] VITALS (22 sets, daily range): BP systolic 108–130; BP diastolic 39–60; PULSE 58–77; RESP 14–22; TEMP 35.6–36.7; O2SAT 95–100; BMI 34.4
[2022-01-01 05:25] LABS: Add Manual Diff / Slide Review NO; Basophils Absolute Auto 0 /uL (0-100); Basophils Percent Auto 0.7 % (0-2); Eosinophils Absolute Auto 100 /uL (0-450); Eosinophils Percent Auto 2.5 % (2-4); Hematocrit 23.4 % (41-53); Hemoglobin 7.8 g/dL (13.5-17.5); Lymphocytes Absolute Auto 300 /uL (1100-4500); Lymphocytes Percent Auto 7.4 % (25-40); Mean Corpuscular HGB Conc 33.6 % (30-36); Mean Corpuscular Hemoglobin 29.7 PG (26-34); Mean Corpuscular Volume 88.4 fL (80-100); Monocytes Absolute Auto 500 /uL (0-900); Monocytes Percent Auto 11.8 % (3-14); Neutrophils Absolute Auto 3400 /uL (1500-7000); Neutrophils Percent Auto 77.6 % (50-75); Platelet Count 185 X10^3/uL (150-400); Red Blood Cell Count 2.65 X10^6/uL (4.5-5.9); Red Cell Distribution Width 18.2 % (11.6-14.8); White Blood Cell Count 4.4 X10^3/uL (4.5-11.0)
[2022-01-01 05:35] LABS: BUN Creatinine Ratio 21.4 (6-22); Blood Urea Nitrogen 22 mg/dL (9-20); Calcium 7.6 mg/dL (8.4-10.2); Carbon Dioxide 27 mmol/L (22-32); Chloride 104 mmol/L (98-107); Estimated Glomerular Filt Rate > 60.0 mL/min (>60); Glucose 96 mg/dL (80-110); HEMOLYSIS < 15 (0-50); Potassium 3.5 mmol/L (3.4-5.1); Sodium 138 mmol/L (137-145)
[2022-01-01] MEDS: METOPROLOL ER 25 MG TABLET PO (08:37)
[2022-01-01] MEDS: FINASTERIDE 5 MG TABLET PO (08:38)
[2022-01-01] MEDS: PANTOPRAZOLE 40 MG VIAL IV ×2 (08:43→21:11)
--- NOTE | 2022-01-01 14:38 | P.CONS_ITS ---
History of Present Illness Consult details Date Patient Seen: 01/01/22 Time Patient Seen: 14:38 Chief complaint: low blood pressure, dizzy x7 days Reason for consult: GI bleed, anemia Requesting provider: Amara Black Narrative: admitted for dizziness and anemia. Having dark stools. No abdominal pain or nausea or vomiting. Last colonoscopy was around 3 years ago but he never got the results. Meds Home Medications and Allergies Home Medications Medication Instructions Recorded Confirmed Type magnesium oxide 400 mg (241.3 mg 1 tab PO Q DAY #0 07/31/16 12/29/21 History magnesium) tablet lovastatin 40 mg tablet 40 mg PO Q DAY #90 tab 03/04/17 12/29/21 Rx omeprazole 20 mg capsule,delayed 20 mg PO QDAY #90 cap 03/04/17 12/29/21 Rx release potassium chloride 20 mEq 20 meq PO [facility] #90 tab 05/27/17 12/29/21 Rx tablet,extended release(part/cryst) (Klor-Con M) enalapril maleate 5 mg tablet 5 mg PO QDAY #90 tab 08/03/17 12/29/21 Rx liothyronine 5 mcg tablet 10 mcg PO DAILY tab 04/18/19 12/29/21 History rivaroxaban 20 mg tablet (Xarelto) 20 mg PO QPM 04/18/19 12/29/21 History levothyroxine 75 mcg capsule 75 mcg PO DAILY 01/12/20 12/29/21 History metoprolol succinate 25 mg 12.5 mg PO BEDTIME 01/12/20 12/29/21 History tablet,extended release 24 hr tamsulosin 0.4 mg capsule (Flomax) 0.4 mg PO QPM 10/19/20 12/29/21 History finasteride 5 mg tablet 5 mg PO DAILY #90 tab 03/06/21 12/29/21 Rx amiodarone 200 mg tablet 100 mg PO QPM tab 12/17/21 12/29/21 History Vitamin D3 50 mg PO DAILY 12/29/21 12/29/21 History cartilage 40 mg-collagen II 10 1 tab PO DAILY 12/29/21 12/29/21 History mg-boron 5 mg-hyaluronate 3.3 mg tablet (Kubi Mobi) garlic 5,000 mcg tablet 5,000 mcg PO DAILY 12/29/21 12/29/21 History glucosamine-chondroitin 250 mg-200 1 tab PO DAILY 12/29/21 12/29/21 History mg tablet (Osteo Bi-Flex) horse chestnut 150 mg capsule 150 mg PO BID 12/29/21 12/29/21 History metoprolol succinate 25 mg 25 mg PO DAILY 12/29/21 12/29/21 History tablet,extended release 24 hr omega-3 fatty acids 1,000 mg PO DAILY 12/29/21 12/29/21 History zinc 1 tab PO DAILY 12/29/21 12/29/21 History Allergies Allergy/AdvReac Type Severity Reaction Status Date / Time latex Allergy Verified 12/31/21 14:00 Review of Systems Review of Systems ROS: Yes All systems reviewed with the patient and are negative except as otherwise documented Exam Vital Signs (past 8 hours): - 01/01/22 08:37 01/01/22 10:08 01/01/22 11:00 Temperature 97.9 F Pulse Rate 58 L 58 L 63 Respiratory Rate 18 18 Blood Pressure 126/60 126/60 128/51 L Pulse Oximetry 95 01/01/22 11:21 01/01/22 13:58 Temperature 98.0 F Pulse Rate 60 60 Respiratory Rate 14 18 Blood Pressure 123/58 L Pulse Oximetry 99 Oxygen Delivery Method Room Air Oxygen Flow Rate 0 Const General: cooperative Nutritional Appearance: well nourished Orientation: alert and oriented x3 HENMT Head: normocephalic, atraumatic and other (edematous around the eyes) Nose: external nose normal Eyes Sclera: sclerae normal Neck Neck: trachea midline Chest Chest: normal inspection of the chest Resp Effort & Inspection: normal respiratory effort and able to speak in complete sentences Cardio Rate: regular rate Rhythm: abnormal rhythm Other: afib GI Inspection: normal to inspection Palpation: soft Skin General: atrophy, ecchymosis and pallor Neuro General: patient alert and patient oriented x3 Cranial Nerves: tongue midline Cognition: normal cognition Psych Appearance: grossly normal Mental Status: mental status grossly normal Judgment: fair Objective Labs Result Diagrams: 01/01/22 04:47 01/01/22 04:47 Labs: Laboratory Results - last 24 hr 12/29/21 12/31/21 01/01/22 13:00 20:40 04:47 WBC 4.4 L RBC 2.65 L Hgb 8.2 L 7.8 L Hct 24.4 L 23.4 L MCV 88.4 MCH 29.7 MCHC 33.6 RDW 18.2 H Plt Count 185 Neut % (Auto) 77.6 H Lymph % (Auto) 7.4 L [place] % (Auto) 11.8 Eos % (Auto) 2.5 Baso % (Auto) 0.7 Neut # (Auto) 3400 Lymph # (Auto) 300 L [place] # (Auto) 500 Eos # (Auto) 100 Baso # (Auto) 0 Sodium Potassium Chloride Carbon Dioxide BUN Creatinine Estimated GFR BUN/Creatinine Ratio Glucose Calcium Blood Type A Positive Antibody Screen Negative Crossmatch See Detail 01/01/22 04:47 WBC RBC Hgb Hct MCV MCH MCHC RDW Plt Count Neut % (Auto) Lymph % (Auto) [place] % (Auto) Eos % (Auto) Baso % (Auto) Neut # (Auto) Lymph # (Auto) [place] # (Auto) Eos # (Auto) Baso # (Auto) Sodium 138 Potassium 3.5 Chloride 104 Carbon Dioxide 27 BUN 22 H Creatinine 1.03 Estimated GFR > 60.0 BUN/Creatinine Ratio 21.4 Glucose 96 Calcium 7.6 L Blood Type Antibody Screen Crossmatch [facility] Medical History Asthma (11/04/11) Atrial flutter (03/20/17) Benign prostatic hyperplasia (11/04/11) Body mass index (BMI) of 30.0 to 39.9 (10/27/11) BPH w urinary obs/LUTS Controlled type 2 diabetes mellitus (10/03/16) Diabetes Diverticulosis of sigmoid colon (03/20/17) Elevated PSA Elevated PSA Essential hypertension (10/27/11) Family history of prostate cancer Gastroesophageal reflux disease (03/01/14) History of primary bladder cancer History of primary bladder cancer History of UTI HLD (hyperlipidemia) Hyperlipidemia (10/27/11) Hypothyroid Lower urinary tract symptoms (LUTS) Malignant neoplasm of urinary bladder (10/11/16) Melena Mild cognitive impairment Neoplasm of uncertain behavior of bladder Osteoarthritis Persistent atrial fibrillation Prostate cancer RBBB plus LA hemiblock Tubular adenoma of colon (03/20/17) Surgical History History of appendectomy History of cardiac radiofrequency ablation History of cystoscopy History of knee surgery Hx of rotator cuff surgery Family History Father CAD (coronary artery disease) Hyperlipidemia Hypertension Hearing impairment Mother CAD (coronary artery disease) Hypertension Hyperlipidemia Cancer Social History marital status: household members: spouse occupational status: previously employed Tobacco & Substance Use Smoking Status: Never smoker alcohol intake: never substance use type: does not use Diet and Exercise caffeine: Yes Assessment & Plan Assessment & Plan narrative: GI bleed and severe anemia. Clinically an upper GI bleed is likely Plan: Diagnostic EGD and colonoscopy Time Spent With Patient Time with patient: less than 30 minutes Critical Care time: I spent a total of [] minutes of critical care time on this patient's care today; this time is exclusive of procedural time.
--- NOTE | 2022-01-01 15:05 | PM.OP.ENDO ---
Operative Date/Time/Diagnoses Date of procedure: 01/01/22 Time of procedure: 15:05 Pre-op diagnosis: GI bleed Post-op diagnosis: same Procedure & Clinicians Study performed: EGD Same procedure as scheduled: Yes Indications: GI bleed and anemia Surgeon: Zena Mcghee Procedure Notes SCOAP/Timeout: done Findings: gastric ulcer Specimen(s): none sent Complications: none Impression: Prep diagnosis: GI bleed Postop diagnosis: Same Operative procedure EGD with MAC. Surgeon: Kell Mcghee MD Findings: Gastric ulcer with clot, no active bleeding. estimated 5mm in size in the antrum of the stomach. Esophagus and duodenum normal. Procedure: Patient placed in lateral position. Scope inserted into the esophagus advanced to the stomach with insufflation identified the pylorus intubated into the duodenum. Retroflex was also accomplished during the procedure. I did visualize a antral ulcer with clot no active bleeding. Ulcer appeared to be approximately 5 mm in size. Esophagus and duodenum including retroflex were all within normal limits. With this in mind and the patient's precarious health with a low hematocrit I chose to abort colonoscopy. He had colonoscopy 2020 showing diverticulosis. Impression: Gastric antral ulcer. Plan: Continue PPI b.i.d. consider PPI infusion. Can restart clear liquids. We will have to continue to follow hematocrits. Anticoagulation in this gentleman is contraindicated at this point. Post-procedure Disposition: PACU
--- NOTE | 2022-01-01 15:53 | SUR.OPER ---
COLONOSCOPY CANCELLED PER SURGEON
--- NOTE | 2022-01-01 16:30 | PC.NURSE ---
Pt is A&Ox1-2 this a.m. Pleasant but refusing blood glucose check today. On lab results BG 96. Pt NPO this a.m. and having x2 brown green liquid stool. MD Mcghee notified of this result and ordered to give one cup of go lytely. Pt is ordered one unit of blood before endoscopy scheduled at 1500. Pt's blood initiated at 1400 and at 1415 no s/sx of reaction.DIE SINKING MACHINE OPERATOR arrived to transport patient via w/chair at 1430, he was toileted and Loli at bedside VSS, afebrile. he was transported to pre op with 1 unit of bood transfusing. 1634, received report from PACU. Pt transported back to room 205.
--- NOTE | 2022-01-01 18:35 | PM.PN.1 ---
Subjective Subjective Date Patient Seen: 01/01/22 Interval history: 76-year-old male admitted to the hospital with symptomatic anemia and GI bleed. He underwent upper endoscopy today which revealed a gastric ulcer with a clot in place. Patient is now on a clear liquid diet. He did receive a 2nd unit of blood. Will recheck his H&H to ensure that he is not continuing to bleed. Exam Vital Signs (past 8 hours): - 01/01/22 11:00 01/01/22 11:21 01/01/22 13:58 Temperature 98.0 F Pulse Rate 63 60 60 Respiratory Rate 18 14 18 Blood Pressure 128/51 L 123/58 L Pulse Oximetry 99 01/01/22 14:15 01/01/22 14:49 01/01/22 15:55 Temperature 96.5 F L 98.0 F 97.2 F L Pulse Rate 61 77 62 Respiratory Rate 18 20 22 Blood Pressure 120/44 L 118/58 L 108/39 L Pulse Oximetry 100 99 01/01/22 16:00 01/01/22 16:05 01/01/22 16:10 Temperature Pulse Rate 61 60 61 Respiratory Rate 19 22 18 Blood Pressure 122/52 L 122/52 L 114/49 L Pulse Oximetry 99 99 99 01/01/22 16:15 01/01/22 16:20 01/01/22 16:35 Temperature 97.0 F L 97.0 F L 96.0 F L Pulse Rate 62 60 60 Respiratory Rate 18 15 18 Blood Pressure 123/42 L 115/56 L 129/49 L Pulse Oximetry 99 97 97 01/01/22 17:05 Temperature 96.5 F L Pulse Rate 63 Respiratory Rate 18 Blood Pressure 126/47 L Pulse Oximetry 98 Oxygen Delivery Method Room Air Oxygen Flow Rate 2 Narrative Exam Narrative: Elderly male sitting in a chair in no obvious distress Resp Other: Lungs clear to auscultation Cardio Other: Cardiac exam: Irregularly irregular normal S1-S2 GI Other: Abdomen soft and nontender Extrem Other: Extremity no edema Objective Labs Result Diagrams: 01/01/22 04:47 01/01/22 04:47 Labs: Laboratory Results - last 24 hr 12/29/21 12/31/21 01/01/22 13:00 20:40 04:47 WBC 4.4 L RBC 2.65 L Hgb 8.2 L 7.8 L Hct 24.4 L 23.4 L MCV 88.4 MCH 29.7 MCHC 33.6 RDW 18.2 H Plt Count 185 Neut % (Auto) 77.6 H Lymph % (Auto) 7.4 L [place] % (Auto) 11.8 Eos % (Auto) 2.5 Baso % (Auto) 0.7 Neut # (Auto) 3400 Lymph # (Auto) 300 L [place] # (Auto) 500 Eos # (Auto) 100 Baso # (Auto) 0 Sodium Potassium Chloride Carbon Dioxide BUN Creatinine Estimated GFR BUN/Creatinine Ratio Glucose Calcium Blood Type A Positive Antibody Screen Negative Crossmatch See Detail 01/01/22 04:47 WBC RBC Hgb Hct MCV MCH MCHC RDW Plt Count Neut % (Auto) Lymph % (Auto) [place] % (Auto) Eos % (Auto) Baso % (Auto) Neut # (Auto) Lymph # (Auto) [place] # (Auto) Eos # (Auto) Baso # (Auto) Sodium 138 Potassium 3.5 Chloride 104 Carbon Dioxide 27 BUN 22 H Creatinine 1.03 Estimated GFR > 60.0 BUN/Creatinine Ratio 21.4 Glucose 96 Calcium 7.6 L Blood Type Antibody Screen Crossmatch [facility] Medical History Asthma (11/04/11) Atrial flutter (03/20/17) Benign prostatic hyperplasia (11/04/11) Body mass index (BMI) of 30.0 to 39.9 (10/27/11) BPH w urinary obs/LUTS Controlled type 2 diabetes mellitus (10/03/16) Diabetes Diverticulosis of sigmoid colon (03/20/17) Elevated PSA Elevated PSA Essential hypertension (10/27/11) Family history of prostate cancer Gastroesophageal reflux disease (03/01/14) History of primary bladder cancer History of primary bladder cancer History of UTI HLD (hyperlipidemia) Hyperlipidemia (10/27/11) Hypothyroid Lower urinary tract symptoms (LUTS) Malignant neoplasm of urinary bladder (10/11/16) Melena Mild cognitive impairment Neoplasm of uncertain behavior of bladder Osteoarthritis Persistent atrial fibrillation Prostate cancer RBBB plus LA hemiblock Tubular adenoma of colon (03/20/17) Surgical History History of appendectomy History of cardiac radiofrequency ablation History of cystoscopy History of knee surgery Hx of rotator cuff surgery Family History Father CAD (coronary artery disease) Hyperlipidemia Hypertension Hearing impairment Mother CAD (coronary artery disease) Hypertension Hyperlipidemia Cancer Social History marital status: household members: spouse occupational status: previously employed Smoking Status: Never smoker alcohol intake: never substance use type: does not use caffeine: Yes Assessment & Plan Assessment & Plan narrative: Leandro Allen is a 74-year-old male with a past medical history significant for hypertension, hyperlipidemia, paroxysmal atrial fibrillation/flutter status post ablation and on Xarelto, diabetes mellitus type 2, non-insulin using and diet controlled, COPD/asthma, obstructive sleep apnea on CPAP, GERD, and bladder tumor status post resection admitted with GI bleeding. 1. GI bleed with acute blood loss anemia. ?- CLD today, prep today with plan for endoscopy tomorrow with general surgery. ?- can hold IV fluids for now. ?- repeat h/h this evening, Hg now to 7.6. Goal >7. ?- patient's chronic anticoagulation is contributing to bleeding and is currently held. -transfuse 1 unit, goal Hemoglobin above 8 -patient underwent upper endoscopy which confirmed a gastric ulcer with a clot -colonoscopy aborted as he had 1 a year ago and did not have a complete prep -will follow H&H closely, transfuse for hemoglobin less than 8 2. Chronic obstructive pulmonary disease and restrictive lung disease, present on admission.? Stable. -Does not represent COPD exacerbation. -PFTs on 04/19/2019 demonstrated mild COPD and restrictive disease with decreased diffusion capacity. -Continue respiratory therapy for evaluation and treatment. Continue Albuterol MDI inhaler with spacer 2 puffs every 4 hours as needed. 3. Diabetes mellitus type 2, non-insulin using and diet-controlled, present on admission.? Stable. ?- A1c 5.9%. Will monitor with morning BMP given good control and adjust if hypergylcemic. 4. Chronic atrial fibrillation/flutter status post ablation, present on admission.? Stable. -The patient denies complaints of chest pain or palpitations. -Continue rhythm control with amiodarone 200 mg daily, rate control with metoprolol succinate 25 mg daily in the morning and 12.5 mg daily at bedtime -anticoagulation contraindicated given his gastric ulcer which is high risk for recurrent bleeding 5. Hypertension, chronic, present on admission.? Stable. -Blood pressure is adequately controlled -Hold home enalapril daily given acute blood loss anemia and normotension. Continue metoprolol succinate 25 mg daily in the morning and 12.5 mg daily at bedtime for rate control. 6. Hyperlipidemia, chronic, present on admission.? Stable. -Continue home lovastatin 40 mg daily. 7. Hypothyroidism, chronic, present on admission.? Stable. -TSH normal at 1.56. -Continue levothyroxine 75 mcg daily and liothyronine 10 mcg daily. 8. Prostate and bladder cancer, chronic, present on admission.? Stable. -Continue tamsulosin 0.8 mg daily -recent proton therapy for prostate CA. S/p surgery for bladder (urothelial) cancer as well. 9. GERD, chronic, present on admission.? Stable. -Continue home PPI with Protonix 20 mg daily. 10. Obstructive sleep apnea on CPAP, chronic, present on admission.? Stable. -Continue home CPAP per RT protocol. 11. Chronic diastolic heart failure ?- no current symptoms. Avoid aggressive fluids. Time Spent With Patient Critical Care time: I spent a total of [] minutes of critical care time on this patient's care today; this time is exclusive of procedural time. Quality VTE Deep Vein Thrombosis/Pulmonary Embolism Present on Admission: No
[2022-01-02] MEDS: LEVOTHYROXINE 75 MCG TABLET PO (05:33)
[2022-01-02] MEDS: LIOTHYRONINE 5 MCG TABLET 10 MCG PO (05:33)
[2022-01-02 05:53] VITALS: RESP 18
[2022-01-02 06:19] LABS: Add Manual Diff / Slide Review NO; Basophils Absolute Auto 0 /uL (0-100); Basophils Percent Auto 0.9 % (0-2); Eosinophils Absolute Auto 100 /uL (0-450); Eosinophils Percent Auto 3.4 % (2-4); Hematocrit 25.7 % (41-53); Hemoglobin 8.6 g/dL (13.5-17.5); Lymphocytes Absolute Auto 300 /uL (1100-4500); Lymphocytes Percent Auto 7.3 % (25-40); Mean Corpuscular HGB Conc 33.4 % (30-36); Mean Corpuscular Hemoglobin 29.7 PG (26-34); Mean Corpuscular Volume 88.9 fL (80-100); Monocytes Absolute Auto 500 /uL (0-900); Monocytes Percent Auto 12.6 % (3-14); Neutrophils Absolute Auto 2900 /uL (1500-7000); Neutrophils Percent Auto 75.8 % (50-75); Platelet Count 190 X10^3/uL (150-400); Red Blood Cell Count 2.89 X10^6/uL (4.5-5.9); Red Cell Distribution Width 17.7 % (11.6-14.8); White Blood Cell Count 3.8 X10^3/uL (4.5-11.0)
[2022-01-02 06:25] LABS: Magnesium 2.2 mg/dL (1.6-2.3)
[2022-01-02 06:26] LABS: BUN Creatinine Ratio 19.4 (6-22); Blood Urea Nitrogen 20 mg/dL (9-20); Calcium 7.6 mg/dL (8.4-10.2); Carbon Dioxide 28 mmol/L (22-32); Chloride 105 mmol/L (98-107); Estimated Glomerular Filt Rate > 60.0 mL/min (>60); Glucose 90 mg/dL (80-110); HEMOLYSIS < 15 (0-50); Potassium 3.5 mmol/L (3.4-5.1); Sodium 138 mmol/L (137-145)
[2022-01-02 07:00] VITALS: O2SAT 95
--- NOTE | 2022-01-02 08:33 | PM.DS.1 ---
History of Present Illness History of Present Illness Date Patient Seen: 01/02/22 Time Patient Seen: 08:33 Chief complaint: low blood pressure, dizzy x7 days Narrative: Leandro Allen is a 76-year-old male who presented to the emergency department today for evaluation of dizziness and low blood pressure.? Patient explains that he recently completed radiation therapy for bladder and prostate cancer on 12/05/2021.? He states that he has been experiencing soft stools since completing radiation therapy, and notes that when he does have solid stools they are ?darker than normal?.? He explains that his blood pressure at home was ?in the 80s over 50s? and states that his blood pressure is normally around 130/70.?He states that his dizziness has been worsening over the past week or so and states that his low blood pressure with something and he noticed today.? He does having burning and interrupted urinary flow since the treatment, but has been improving over time. He is anticoagulated daily with Xarelto due to history of atrial fibrillation. He denies fever, chills, chest pain, cough, shortness of breath, nausea, vomiting, constipation, abdominal pain, dysuria, hematuria, syncope, chest pain radiating to the back, or any other concerning symptoms.? When discussing the need for a bowel prep, he states he only has a small bowel movement with urination and has not had a normal bowel movement for a month. He received proton therapy at [facility], sees Dr. Dove locally. Patient has a history of atrial fibrillation and his last echocardiogram of record locally was done in 2019 where he had a 55-60% EF with a moderately dilated right ventricle and mildly reduced right ventricular systolic function, he has mild left ventricular hypertrophy, severely dilated left atrium which appeared to be stable at that time and aortic trileaflet valve with mild regurgitation stable at that time, and right ventricular systolic pressure with increased in severity in 2019. CT ordered in the emergency department did not identify any bowel obstruction, it did note cholelithiasis,?prostatomegaly with fiducial markers, but did note thickening of the sigmoid colon with trace surrounding fat stranding and luminal narrowing, extensive diverticulosis questioned diverticulitis, recommending colonoscopy for follow-up.? Patient is afebrile, blood pressure 118/59, heart rate 62, respiratory rate 18, oxygen saturation 97% on room air he weighs 99.79 kg with a BMI of 34.4.? He is mildly anemic with a hemoglobin and hematocrit of 8.5 and 25.4 respectively, his platelet count is 214, BUN is 33, creatinine 1.22 with a EGFR 57.4, his glucose is 122, A1c is 5.9, liver enzymes are within normal limits, lipase is within normal limits, procalcitonin negative, TSH is 2.36 and COVID-19 PCR is negative. Discharge Providers Provider Date of admission: 12/29/21 16:29 Discharge Date: 01/02/22 Primary care physician: Bigg Orona MD Consults: 12/29/21 21:47 Consult to Physician Routine Comment: Consulting Provider: Rogelio Ludwig Reason for consultation: Positive guiac, hx diverticulitis Has provider been notified: Yes 12/30/21 10:03 Consult to Respiratory Therapy Evaluate & Treat Comment: Physician Instructions: Evaluate and treat Discharge provider: Amara Black MD Summary Hospital Course Discharge Diagnosis: 1. Acute blood loss anemia, status post U 2 units of packed RBCs 2. Upper GI bleed secondary to a gastric ulcer 3. Chronic atrial fibrillation, on anticoagulation 4. Type 2 diabetes 5. Hypertension 6. BPH 7. Hyperlipidemia Hospital Course: Patient presented to the hospital with heme-positive stool, dizziness, anemia and concern for GI bleed. As the patient had heme-positive stool there was concern of a lower GI bleed. Initially plans were underway to perform all colonoscopy. The patient started on a bowel prep. However he was unable to be prepped well enough to undergo colonoscopy. He was anemic, he had previously been on Xarelto for atrial fibrillation. This was held during the hospital stay. The patient's hemoglobin dropped to 7, he required 2 units of packed RBCs which he tolerated well. He had no hematemesis during the hospital stay. Given his history of cardiac disease the patient did undergo echocardiogram. This showed the left ventricular systolic function was normal without focal wall motion abnormalities. His ejection fraction was 55-60%. The right ventricle is moderately dilated. Right systolic ventricular function is mildly reduced. Left atrium severely dilated, right atrium severely dilated. There was moderate mitral calcification. The patient was seen by Dr. Mcghee for evaluation of his GI bleed. He underwent upper endoscopy, this revealed a gastric ulcer with clot, no active bleeding, estimated 5 mm in size in the antrum of the stomach, esophagus and duodenum were normal. As the etiology of the upper GI bleed was identified and the patient was anemic and had had a recent colonoscopy within the past year colonoscopy was deferred. Patient was placed on a clear liquid diet which he tolerated without difficulty. Repeat H&H revealed a hemoglobin of 8.6 with a hematocrit of 25.7. The patient was deemed appropriate for discharge home. Given the upper GI bleed with a gastric clot recommendations are for him to stay off all anticoagulation for 2 weeks. At that point he can resume his Xarelto. He will also need to remain on Protonix 40 b.i.d.. He will follow-up with his primary care physician Dr. Orona for further evaluation. Status at Discharge Cognitive/behavioral status at discharge: oriented Functional status at discharge: independent ambulation Overall status at discharge: patient is progressing back to baseline Exam Vital Signs (past 8 hours): - 01/02/22 05:53 Respiratory Rate 18 Oxygen Delivery Method Room Air Oxygen Flow Rate 0 Narrative Exam Narrative: Pleasant male lying in bed in no obvious distress HENMT Other: Nasal CPAP in place Resp Other: Lungs clear to auscultation Cardio Other: Cardiac exam: Regular rate and rhythm normal S1-S2 with a 2/6 systolic ejection GI Other: Abdomen: Soft nontender nondistended Extrem Other: Extremity no edema Objective Labs Result Diagrams: 01/02/22 05:50 01/02/22 05:50 Labs: Laboratory Results - last 24 hr 12/29/21 01/02/22 01/02/22 13:00 05:50 05:50 WBC 3.8 L RBC 2.89 L Hgb 8.6 L Hct 25.7 L MCV 88.9 MCH 29.7 MCHC 33.4 RDW 17.7 H Plt Count 190 Neut % (Auto) 75.8 H Lymph % (Auto) 7.3 L [place] % (Auto) 12.6 Eos % (Auto) 3.4 Baso % (Auto) 0.9 Neut # (Auto) 2900 Lymph # (Auto) 300 L [place] # (Auto) 500 Eos # (Auto) 100 Baso # (Auto) 0 Sodium 138 Potassium 3.5 Chloride 105 Carbon Dioxide 28 BUN 20 Creatinine 1.03 Estimated GFR > 60.0 BUN/Creatinine Ratio 19.4 Glucose 90 Calcium 7.6 L Magnesium Blood Type A Positive Antibody Screen Negative Crossmatch See Detail 01/02/22 05:50 WBC RBC Hgb Hct MCV MCH MCHC RDW Plt Count Neut % (Auto) Lymph % (Auto) [place] % (Auto) Eos % (Auto) Baso % (Auto) Neut # (Auto) Lymph # (Auto) [place] # (Auto) Eos # (Auto) Baso # (Auto) Sodium Potassium Chloride Carbon Dioxide BUN Creatinine Estimated GFR BUN/Creatinine Ratio Glucose Calcium Magnesium 2.2 Blood Type Antibody Screen Crossmatch [facility] Medical History Asthma (11/04/11) Atrial flutter (03/20/17) Benign prostatic hyperplasia (11/04/11) Body mass index (BMI) of 30.0 to 39.9 (10/27/11) BPH w urinary obs/LUTS Controlled type 2 diabetes mellitus (10/03/16) Diabetes Diverticulosis of sigmoid colon (03/20/17) Elevated PSA Elevated PSA Essential hypertension (10/27/11) Family history of prostate cancer Gastroesophageal reflux disease (03/01/14) History of primary bladder cancer History of primary bladder cancer History of UTI HLD (hyperlipidemia) Hyperlipidemia (10/27/11) Hypothyroid Lower urinary tract symptoms (LUTS) Malignant neoplasm of urinary bladder (10/11/16) Melena Mild cognitive impairment Neoplasm of uncertain behavior of bladder Osteoarthritis Persistent atrial fibrillation Prostate cancer RBBB plus LA hemiblock Tubular adenoma of colon (03/20/17) Surgical History History of appendectomy History of cardiac radiofrequency ablation History of cystoscopy History of knee surgery Hx of rotator cuff surgery Family History Father CAD (coronary artery disease) Hyperlipidemia Hypertension Hearing impairment Mother CAD (coronary artery disease) Hypertension Hyperlipidemia Cancer Social History marital status: household members: spouse occupational status: previously employed Smoking Status: Never smoker alcohol intake: never substance use type: does not use caffeine: Yes Discharge Assessment & Plan Assessment and Plan Assessment: 1. Acute blood loss anemia, status post U 2 units of packed RBCs 2. Upper GI bleed secondary to a gastric ulcer 3. Chronic atrial fibrillation, on anticoagulation 4. Type 2 diabetes 5. Hypertension 6. BPH 7. Hyperlipidemia Plan of Treatment: protonix 40 mg bid hold xeralto for 2 weeks F/u with Dr. Orona next week Discharge Plan Discharge Plan Patient Disposition: Home Discharge orders & Medications Prescriptions: New pantoprazole [Protonix] 40 mg tablet,delayed release (DR/EC) 40 mg PO BID 30 Days Qty: 60 0RF Continued magnesium oxide 400 MG tablet 1 tab PO Q DAY Qty: 0 0RF lovastatin 40 MG tablet 40 mg PO Q DAY Qty: 90 3RF potassium chloride [Klor-Con M20] 20 MEQ tablet,ER particles/crystals 20 meq PO AMCC Qty: 90 0RF enalapril maleate 5 MG tablet 5 mg PO QDAY Qty: 90 1RF metoprolol succinate 25 mg Tablet Extended Release 24 Hr 12.5 mg PO BEDTIME 0RF levothyroxine 75 mcg Capsule 75 mcg PO DAILY 0RF tamsulosin [Flomax] 0.4 MG capsule 0.4 mg PO QPM 0RF metoprolol succinate 25 mg Tablet Extended Release 24 Hr 25 mg PO DAILY 0RF Rx Instructions: 25mg AM 12.5mg pm Vitamin D3 50 mg 50 mg PO DAILY 0RF horse chestnut 150 mg Capsule 150 mg PO BID 0RF zinc Tablet,Chewable 1 tab PO DAILY 0RF Fish Oil Capsule 1,000 mg PO DAILY 0RF glucosamine-chondroitin [Osteo Bi-Flex] 250-200 mg Tablet 1 tab PO DAILY 0RF [place]lique 5,000 mcg Tablet 5,000 mcg PO DAILY 0RF Joint Health 40-10-5-3.3 mg Tablet 1 tab PO DAILY 0RF Rx Instructions: Karimi brand liothyronine 5 mcg tablet 10 mcg PO DAILY 0RF amiodarone 200 mg tablet 100 mg PO QPM 0RF finasteride 5 mg tablet 5 mg PO DAILY Qty: 90 3RF Discontinued omeprazole 20 MG capsule,delayed release(DR/EC) 20 mg PO QDAY Qty: 90 3RF Xarelto 20 mg tablet 20 mg PO QPM 0RF Label Comments: Pt doesn't remember all the medication that he has been taking. Time/date unknown for most part. Pt hasn't been taking any of them for past 2 days. Follow up/Referrals: Bigg Orona MD [Primary Care Provider] - Discharge Health Status Multidrug resistant organism: No MDRO Diet/Activity/Treatments Diet: Low-sodium and Low-cholesterol Discharge Data Primary Care Provider: Bigg Orona VTE Deep Vein Thrombosis/Pulmonary Embolism Present on Admission: No
[2022-01-02 09:23] VITALS: PULSE 71; RESP 16; O2SAT 100
[2022-01-02 09:36] VITALS: BP 119/58; PULSE 66
[2022-01-02] MEDS: ENALAPRIL 5 MG TABLET PO (09:36)
[2022-01-02 09:37] VITALS: BP 119/58; PULSE 66
[2022-01-02] MEDS: FINASTERIDE 5 MG TABLET PO (09:37)
[2022-01-02] MEDS: METOPROLOL ER 25 MG TABLET PO (09:37)
[2022-01-02] MEDS: TAMSULOSIN 0.4 MG CAPSULE PO (09:38)
[2022-01-02] MEDS: PANTOPRAZOLE 40 MG VIAL IV (09:38)
[2022-01-02] MEDS: AMIODARONE 200 MG TABLET 100 MG PO (09:38)
[2022-01-02 10:00] VITALS: BP 119/58; PULSE 66; RESP 18; TEMP 36.4; O2SAT 95
--- NOTE | 2022-01-02 10:50 | PC.NURSE ---
Pt A&Ox2 forgetful. VSS, afebrile on RA. He is evaluated by this a.m. and started on a heart healthy diet. He tolerates this well and denies any pain or s/sx of bleeding. He is cleared for discharge home this a.m. He notifies his and dresses independently. and patient verbalize understanding of discharge instructions, medications (to order picker at [facility]'s) activity, diet and follow up recommendations. He is escorted by wheel chair to private vehicle with his via wheel chair with the [employer] SPECIALIST and all of his belongings including his CPAP at 1045 this a.m.
== END 2022-01-02 10:45 | disposition home or self-care (01) | DRG 378 ==
LOC: ED 15:31 → AC 16:30
PROVIDERS: Internal Medicine; Nurse Practitioner Family; Surgery; Admitting Provider Internal Medicine; Emergency Provider Physician Assistant; PCP Internal Medicine; Referring Provider Physician Assistant; Visit Provider Internal Medicine
PROC: 0DJ08ZZ Inspection of Upper Intestinal Tract, Via Natural or Artificial Opening Endoscopic (ICD-10-PCS; CPT 43235; principal; 2022-01-01 15:15)
DX: K25.4 Chronic or unspecified gastric ulcer with hemorrhage (principal); I48.20 Chronic atrial fibrillation, unspecified; I50.32 Chronic diastolic (congestive) heart failure; D62 Acute posthemorrhagic anemia; D68.32 Hemorrhagic disorder due to extrinsic circulating anticoagulants; I11.0 Hypertensive heart disease with heart failure; E03.9 Hypothyroidism, unspecified; N40.0 Benign prostatic hyperplasia without lower urinary tract symptoms; J44.9 Chronic obstructive pulmonary disease, unspecified; E78.5 Hyperlipidemia, unspecified; K21.9 Gastro-esophageal reflux disease without esophagitis; G47.33 Obstructive sleep apnea (adult) (pediatric); E11.9 Type 2 diabetes mellitus without complications; C61 Malignant neoplasm of prostate; Z79.01 Long term (current) use of anticoagulants; Z66 Do not resuscitate; Z20.822 Contact with and (suspected) exposure to COVID-19; Z85.51 Personal history of malignant neoplasm of bladder
CPT/HCPCS: 36415; 36430; 43235; 74177; 80048; 80053; 82550; 82962; 83036; 83690; 83735; 84145; 84443; 84484; 85014; 85018; 85025; 85027; 86850; 86900; 86901; 87635; 93005; 93010; 93307; 94760; 96374; 99232; 99284; C9803; P9016; C9113; J1815; J2250; J2704; Q9967

== ENCOUNTER 2022-01-14 18:39 | Emergency (ER) | payer MEDICARE, SELFPAY ==
[2021-12-29 16:34] VITALS: BMI 34.4
[2022-01-14] VITALS (8 sets, daily range): BP systolic 143–182; BP diastolic 78–90; PULSE 64–70; RESP 22–59; TEMP 36.6; O2SAT 95–99
--- NOTE | 2022-01-14 19:02 | ED_ITS ---
HPI - GI Bleed General Chief complaint: GI Bleed Stated complaint: Dark stools, Bloody vomit Time Seen by Provider: 01/14/22 19:01 Source: patient and EMS Mode of arrival: EMS History of Present Illness HPI Narrative: 76-year-old gentleman with a history of bladder and prostate cancer status post radiation November 2019. Admitted to the hospital January 02 with GI bleeding requiring 2 units of packed blood cells and a diagnosis of gastric ulcer. He has type 2 diabetes, hypertension hyperlipidemia and chronic atrial fibrillation for which he was anticoagulated on Xarelto that was to be held for 2 weeks post discharge. He states that while he was going for radiation treatment his stool was quite black after his recent hospitalization it turned to brown. Last night he started iron and since then has had some stomach upset a couple of episodes of vomiting and reports black stool. Apparently his thought that there were blood clots in his emesis but that that is available here in the emergency department looks like normal stomach contents without any blood or clots. He states that he is having some mild epigastric pain but nothing more than previously, no chest pain, dyspnea, palpitations, diarrhea. He has had no h eadaches fevers or cough. Related Data Home Medications Medication Instructions Recorded Confirmed magnesium oxide 400 mg (241.3 mg 1 tab PO Q DAY #0 07/31/16 12/29/21 magnesium) tablet liothyronine 5 mcg tablet 10 mcg PO DAILY tab 04/18/19 12/29/21 levothyroxine 75 mcg capsule 75 mcg PO DAILY 01/12/20 12/29/21 metoprolol succinate 25 mg 12.5 mg PO BEDTIME 01/12/20 12/29/21 tablet,extended release 24 hr tamsulosin 0.4 mg capsule (Flomax) 0.4 mg PO QPM 10/19/20 12/29/21 amiodarone 200 mg tablet 100 mg PO QPM tab 12/17/21 12/29/21 Vitamin D3 50 mg PO DAILY 12/29/21 12/29/21 cartilage 40 mg-collagen II 10 1 tab PO DAILY 12/29/21 12/29/21 mg-boron 5 mg-hyaluronate 3.3 mg tablet ([employer]) garlic 5,000 mcg tablet 5,000 mcg PO DAILY 12/29/21 12/29/21 glucosamine-chondroitin 250 mg-200 1 tab PO DAILY 12/29/21 12/29/21 mg tablet (Osteo Bi-Flex) horse chestnut 150 mg capsule 150 mg PO BID 12/29/21 12/29/21 metoprolol succinate 25 mg 25 mg PO DAILY 12/29/21 12/29/21 tablet,extended release 24 hr omega-3 fatty acids 1,000 mg PO DAILY 12/29/21 12/29/21 zinc 1 tab PO DAILY 12/29/21 12/29/21 Previous Rx's Medication Instructions Recorded lovastatin 40 mg tablet 40 mg PO Q DAY #90 tab 03/04/17 potassium chloride 20 mEq 20 meq PO AMCC #90 tab 05/27/17 tablet,extended release(part/cryst) (Klor-Con M) enalapril maleate 5 mg tablet 5 mg PO QDAY #90 tab 08/03/17 finasteride 5 mg tablet 5 mg PO DAILY #90 tab 03/06/21 pantoprazole 40 mg tablet,delayed 40 mg PO BID 30 Days #60 tab 01/02/22 release (Protonix) Allergies Allergy/AdvReac Type Severity Reaction Status Date / Time latex Allergy Verified 12/31/21 14:00 Review of Systems Review of Systems Narrative: Remainder of complete review of systems is otherwise unremarkable except for that included in the HPI. Patient History Medical History Asthma (11/04/11) Atrial flutter (03/20/17) Benign prostatic hyperplasia (11/04/11) Body mass index (BMI) of 30.0 to 39.9 (10/27/11) BPH w urinary obs/LUTS Controlled type 2 diabetes mellitus (10/03/16) Diabetes Diverticulosis of sigmoid colon (03/20/17) Elevated PSA Elevated PSA Essential hypertension (10/27/11) Family history of prostate cancer Gastroesophageal reflux disease (03/01/14) History of primary bladder cancer History of primary bladder cancer History of UTI HLD (hyperlipidemia) Hyperlipidemia (10/27/11) Hypothyroid Lower urinary tract symptoms (LUTS) Malignant neoplasm of urinary bladder (10/11/16) Melena Mild cognitive impairment Neoplasm of uncertain behavior of bladder Osteoarthritis Persistent atrial fibrillation Prostate cancer RBBB plus LA hemiblock Tubular adenoma of colon (03/20/17) Surgical History History of appendectomy History of cardiac radiofrequency ablation History of cystoscopy History of knee surgery Hx of rotator cuff surgery Family History Father CAD (coronary artery disease) Hyperlipidemia Hypertension Hearing impairment Mother CAD (coronary artery disease) Hypertension Hyperlipidemia Cancer Social History marital status: household members: spouse occupational status: previously employed Smoking Status: Never smoker alcohol intake: never substance use type: does not use caffeine: Yes Smoking Status: Never smoker alcohol intake frequency: other Substance Use Type: does not use Exam Initial Vital Signs Initial Vital Signs: Vital Signs Temperature 97.8 F 01/14/22 18:59 Pulse Rate 70 01/14/22 18:59 Respiratory Rate 22 01/14/22 18:59 Blood Pressure 143/90 H 01/14/22 18:59 Pulse Oximetry 99 01/14/22 18:59 General: Healthy appearing, in no acute distress. Able to give a complete and coherent history. Well-nourished well-developed HEENT: Moist mucous membranes, normal sclera with reactive pupils, Neck: No JVD, supple Respiratory: Lungs are clear to auscultation, no wheezing no rales no rhonchi. Full and symmetrical air movement Cardiac: Regular rate and rhythm no murmurs no bruits Abdomen: Soft, mild epigastric tenderness without rebound or guarding good bowel tones, no flank pain Rectal exam: Soft brown stool, guaiac negative appreciated Skin: Slightly pale but otherwise Warm and dry, no rashes Neurologic: Grossly neurologically intact with no obvious asymmetries or abnorm alities Extremities: No trauma, well perfused Psych: Cooperative, appropriate insight and affect Course Orders Ordered: ED Orders 01/14/22 18:49 EKG-12 Lead Stat 01/14/22 19:05 Complete Blood Count AUTO DIFF Stat Comprehensive Metabolic Panel Stat Lipase Stat Prothrombin Time INR Stat Vital Signs Vital signs: Vital Signs - 8 hr 01/14/22 18:59 01/14/22 19:49 01/14/22 20:00 Temperature 97.8 F Pulse Rate 70 64 66 Respiratory Rate 22 47 H 53 H Blood Pressure 143/90 H Pulse Oximetry 99 96 97 01/14/22 20:01 01/14/22 20:30 01/14/22 20:31 Temperature Pulse Rate 66 66 66 Respiratory Rate 57 H 25 H 25 H Blood Pressure 171/78 H 171/81 H Pulse Oximetry 96 95 95 01/14/22 21:00 01/14/22 21:01 Temperature Pulse Rate 65 64 Respiratory Rate 50 H 59 H Blood Pressure 182/81 H Pulse Oximetry 97 97 MDM - GI Bleed Lab Data Result diagrams: 01/14/22 19:05 01/14/22 19:05 Labs: Lab Results 01/14/22 01/14/22 01/14/22 Range/Units 19:05 19:05 19:05 WBC 6.4 (4.5-11.0) X10^3/uL RBC 3.39 L (4.5-5.9) X10^6/uL Hgb 10.1 L (13.5-17.5) g/dL Hct 30.3 L (41-53) % MCV 89.3 (80-100) fL MCH 29.7 (26-34) PG MCHC 33.3 (30-36) % RDW 17.4 H (11.6-14.8) % Plt Count 277 (150-400) X10^3/uL Neut % (Auto) 91.7 H (50-75) % Lymph % (Auto) 2.9 L (25-40) % [place] % (Auto) 5.0 (3-14) % Eos % (Auto) 0.1 L (2-4) % Baso % (Auto) 0.3 (0-2) % Neut # (Auto) 5900 (1468-0874) /uL Lymph # (Auto) 200 L (9537-7395) /uL [place] # (Auto) 300 (0-900) /uL Eos # (Auto) 0 (0-450) /uL Baso # (Auto) 0 (0-100) /uL PT 13.7 H (10.1-12.7) SECONDS INR 1.2 (0.9-1.3) Sodium 130 L (137-145) mmol/L Potassium 5.1 (3.4-5.1) mmol/L Chloride 98 (98-107) mmol/L Carbon Dioxide 22 (22-32) mmol/L BUN 25 H (9-20) mg/dL Creatinine 0.87 (0.66-1.25) mg/dL Estimated GFR > 60.0 (>60) mL/min BUN/Creatinine Ratio 28.7 H (6-22) Glucose 159 H (80-110) mg/dL Calcium 7.8 L (8.4-10.2) mg/dL Total Bilirubin 0.9 (0.2-1.3) mg/dL AST 65 H (17-59) IU/L ALT 21 (<50) IU/L Alkaline Phosphatase 76 (38-126) U/L Total Protein 8.3 H (6.3-8.2) g/dL Albumin 4.5 (3.5-5.0) g/dL Globulin 3.8 (1.7-4.1) g/dL Albumin/Globulin Ratio 1.2 (1.0-2.8) Lipase 38 (23-300) U/L Blood Type Antibody Screen 01/14/22 Range/Units 19:05 WBC (4.5-11.0) X10^3/uL RBC (4.5-5.9) X10^6/uL Hgb (13.5-17.5) g/dL Hct (41-53) % MCV (80-100) fL MCH (26-34) PG MCHC (30-36) % RDW (11.6-14.8) % Plt Count (150-400) X10^3/uL Neut % (Auto) (50-75) % Lymph % (Auto) (25-40) % [place] % (Auto) (3-14) % Eos % (Auto) (2-4) % Baso % (Auto) (0-2) % Neut # (Auto) (1628-1610) /uL Lymph # (Auto) (6491-5255) /uL [place] # (Auto) (0-900) /uL Eos # (Auto) (0-450) /uL Baso # (Auto) (0-100) /uL PT (10.1-12.7) SECONDS INR (0.9-1.3) Sodium (137-145) mmol/L Potassium (3.4-5.1) mmol/L Chloride (98-107) mmol/L Carbon Dioxide (22-32) mmol/L BUN (9-20) mg/dL Creatinine (0.66-1.25) mg/dL Estimated GFR (>60) mL/min BUN/Creatinine Ratio (6-22) Glucose (80-110) mg/dL Calcium (8.4-10.2) mg/dL Total Bilirubin (0.2-1.3) mg/dL AST (17-59) IU/L ALT (<50) IU/L Alkaline Phosphatase (38-126) U/L Total Protein (6.3-8.2) g/dL Albumin (3.5-5.0) g/dL Globulin (1.7-4.1) g/dL Albumin/Globulin Ratio (1.0-2.8) Lipase (23-300) U/L Blood Type Cancelled Antibody Screen Cancelled ECG Data Interpretation: Rhythm at a rate of 66 PVCs in a bigeminy pattern No acute ischemic changes MDM Narrative Medical decision making narrative: 76-year-old gentleman with recent hospital admission with upper GI bleeding and gastric ulcer identified. He has been holding his Xarelto for the last week and half. He took iron last night and has been nauseated with some emesis. His was concerned that there were blood clots in it however emesis observed in the emergency department does not show any evidence of blood. He was concerned that his stool had return to brown and then was brought back again after the iron. It is guaiac negative. Labs reviewed and his H&H is actually increasing nicely. On January 02 it was 8.6 and 25.7 and today it is 10.1 and 30.3. At this time, I do not think he is having continued upper GI bleeding and I do think that he is not tolerating his oral iron. I believe that is what caused his nausea and the emesis and changed his stool from brown to black given that it was entirely guaiac negative. Discharge Plan Departure Patient Disposition: Home Clinical Impression: Adverse effect of drug/medicinal Qualifiers: Encounter type: initial encounter Qualified Code(s): T50.905A - Adverse effect of unspecified drugs, medicaments and biological substances, initial encounter Vomiting Qualifiers: Vomiting type: unspecified Vomiting Intractability: non-intractable Nausea presence: with nausea Qualified Code(s): R11.2 - Nausea with vomiting, unspecified Instructions: DI for Gastric Ulcer Activity Restrictions/Additional Instructions: Thank you for coming in today Your blood work was actually reassuring with your blood cell count increasing s blaine your last hospitalization. With the emesis that we saw in the emergency department there was no bleeding and there was no blood in your stool. I suspect that the iron that you started last night is causing the nausea and iron can make stool look very black. Going to suggest that you stop the iron and talk to your regular doctor about additional options for iron replacement. If you have worsening signs or symptoms or develop new issues, please return to the ER Prescriptions: No Action magnesium oxide 400 MG tablet 1 tab PO Q DAY Qty: 0 0RF lovastatin 40 MG tablet 40 mg PO Q DAY Qty: 90 3RF potassium chloride [Klor-Con M20] 20 MEQ tablet,ER particles/crystals 20 meq PO AMCC Qty: 90 0RF enalapril maleate 5 MG tablet 5 mg PO QDAY Qty: 90 1RF metoprolol succinate 25 mg Tablet Extended Release 24 Hr 12.5 mg PO BEDTIME 0RF levothyroxine 75 mcg Capsule 75 mcg PO DAILY 0RF tamsulosin [Flomax] 0.4 MG capsule 0.4 mg PO QPM 0RF metoprolol succinate 25 mg Tablet Extended Release 24 Hr 25 mg PO DAILY 0RF Rx Instructions: 25mg AM 12.5mg pm Vitamin D3 50 mg 50 mg PO DAILY 0RF horse chestnut 150 mg Capsule 150 mg PO BID 0RF zinc Tablet,Chewable 1 tab PO DAILY 0RF omega-3 fatty acids Capsule 1,000 mg PO DAILY 0RF glucosamine-chondroitin [Osteo Bi-Flex] 250-200 mg Tablet 1 tab PO DAILY 0RF garlic 5,000 mcg Tablet 5,000 mcg PO DAILY 0RF Joint Health 40-10-5-3.3 mg Tablet 1 tab PO DAILY 0RF Rx Instructions: Karimi brand pantoprazole [Protonix] 40 mg tablet,delayed release (DR/EC) 40 mg PO BID 30 Days Qty: 60 0RF liothyronine 5 mcg tablet 10 mcg PO DAILY 0RF amiodarone 200 mg tablet 100 mg PO QPM 0RF finasteride 5 mg tablet 5 mg PO DAILY Qty: 90 3RF Referrals: Bigg Orona MD [Primary Care Provider] -
--- NOTE | 2022-01-14 19:52 | PC.NURSE ---
recent gi bleed, pt states he has been vomiting blood, no active vomiting at this time, bile noted in bag
[2022-01-14 20:09] LABS: Add Manual Diff / Slide Review NO; Basophils Absolute Auto 0 /uL (0-100); Basophils Percent Auto 0.3 % (0-2); Eosinophils Absolute Auto 0 /uL (0-450); Eosinophils Percent Auto 0.1 % (2-4); Hematocrit 30.3 % (41-53); Hemoglobin 10.1 g/dL (13.5-17.5); Lymphocytes Absolute Auto 200 /uL (1100-4500); Lymphocytes Percent Auto 2.9 % (25-40); Mean Corpuscular HGB Conc 33.3 % (30-36); Mean Corpuscular Hemoglobin 29.7 PG (26-34); Mean Corpuscular Volume 89.3 fL (80-100); Monocytes Absolute Auto 300 /uL (0-900); Neutrophils Absolute Auto 5900 /uL (1500-7000); Neutrophils Percent Auto 91.7 % (50-75); Platelet Count 277 X10^3/uL (150-400); Red Blood Cell Count 3.39 X10^6/uL (4.5-5.9); Red Cell Distribution Width 17.4 % (11.6-14.8); White Blood Cell Count 6.4 X10^3/uL (4.5-11.0)
[2022-01-14 20:15] LABS: INR 1.2 (0.9-1.3); Prothrombin Time 13.7 SECONDS (10.1-12.7)
[2022-01-14 20:26] LABS: Alanine Aminotransferase 21 IU/L (<50); Albumin 4.5 g/dL (3.5-5.0); Albumin Globulin Ratio 1.2 (1.0-2.8); Alkaline Phosphatase 76 U/L (38-126); Aspartate Aminotransferase 65 IU/L (17-59); BUN Creatinine Ratio 28.7 (6-22); Bilirubin Total 0.9 mg/dL (0.2-1.3); Blood Urea Nitrogen 25 mg/dL (9-20); Calcium 7.8 mg/dL (8.4-10.2); Carbon Dioxide 22 mmol/L (22-32); Chloride 98 mmol/L (98-107); Estimated Glomerular Filt Rate > 60.0 mL/min (>60); Globulin 3.8 g/dL (1.7-4.1); Glucose 159 mg/dL (80-110); Lipase 38 U/L (23-300); Potassium 5.1 mmol/L (3.4-5.1); Sodium 130 mmol/L (137-145); Total Protein 8.3 g/dL (6.3-8.2)
[2022-01-14 20:37] LABS: HEMOLYSIS 177 (0-50)
== END 2022-01-14 21:42 | disposition home or self-care (01) ==
PROVIDERS: Emergency Provider Emergency Medicine; PCP Internal Medicine
DX: R11.2 Nausea with vomiting, unspecified (principal); T45.4X5A Adverse effect of iron and its compounds, initial encounter
CPT/HCPCS: 36415; 80053; 83690; 85025; 85610; 93005; 99283; 99284

== ENCOUNTER → 2022-01-21 10:25 | Outpatient (CLI) | payer MEDICARE, SELFPAY ==
[2021-12-29 16:34] VITALS: BMI 34.4
[2022-01-21 13:48] LABS: Alanine Aminotransferase 15 IU/L (<50); Albumin 3.5 g/dL (3.5-5.0); Albumin Globulin Ratio 1.2 (1.0-2.8); Alkaline Phosphatase 67 U/L (38-126); Aspartate Aminotransferase 18 IU/L (17-59); BUN Creatinine Ratio 18.7 (6-22); Bilirubin Total 0.4 mg/dL (0.2-1.3); Blood Urea Nitrogen 23 mg/dL (9-20); Carbon Dioxide 26 mmol/L (22-32); Chloride 104 mmol/L (98-107); Estimated Glomerular Filt Rate 56.9 mL/min (>60); Globulin 2.9 g/dL (1.7-4.1); Glucose 110 mg/dL (80-110); HEMOLYSIS < 15 (0-50); Potassium 3.8 mmol/L (3.4-5.1); Sodium 141 mmol/L (137-145); Total Protein 6.4 g/dL (6.3-8.2)
[2022-01-21 13:54] LABS: Free T4, Direct Thyroxine 2.13 ng/dL (0.78-2.19)
[2022-01-21 14:08] LABS: Thyroid Stimulating Hormone 1.42 uIU/mL (0.47-4.68)
== END ==
PROVIDERS: PCP Internal Medicine; Referring Provider Internal Medicine Cardiovascular Disease; Visit Provider Internal Medicine Cardiovascular Disease
DX: I48.0 Paroxysmal atrial fibrillation (principal); E03.8 Other specified hypothyroidism; R94.2 Abnormal results of pulmonary function studies
CPT/HCPCS: 36415; 80053; 84439; 84443

== ENCOUNTER → 2022-01-23 10:39 | Outpatient (CLI) | payer MEDICARE, SELFPAY ==
[2021-12-29 16:34] VITALS: BMI 34.4
[2022-01-23 11:34] LABS: COVID19 -Nasal RAPID Negative (Negative)
== END ==
PROVIDERS: PCP Internal Medicine; Referring Provider Internal Medicine; Visit Provider Internal Medicine
DX: Z20.822 Contact with and (suspected) exposure to COVID-19 (principal)
CPT/HCPCS: 87635; C9803

== ENCOUNTER → 2022-01-24 13:32 | Outpatient (CLI) | payer MEDICARE, SELFPAY ==
[2021-12-29 16:34] VITALS: BMI 34.4
--- NOTE | 2022-01-30 09:32 | PM.PFT.1 ---
Pulmonary Function Test Referral & Results Date Patient Seen: 01/24/22 Requesting provider: Kris Tatum Results: The spirometry demonstrates an FVC of 2.86 L which is 79% of predicted. The FEV1 was measured at 1.93 L which is 75% of predicted. The FEV1/FVC ratio was 67 which is 93% of predicted. Following the administration of bronchodilator there was 9% improvement in FEV1 and a 34% improvement in FEF 25-75% Lung volumes show an SVC of 2.92 L which is 73% of predicted. The diffusing capacity was measured at 15.91 which is 56% of predicted. The maximum voluntary ventilation was reduced Interpretation: This study demonstrates perhaps mild obstructive lung disease based on reduction FEV1 and minimal improvement following bronchodilator particularly small airway flow based on change in FEF 75-75% above. However there is also reduction in lung volumes suggesting mild restrictive lung disease which may well explain abnormalities of FEV1 There is a mild reduction in diffusing capacity as well suggesting element of disease at the capillary alveolar level Compared to PFTs performed in December of 2020, current study is essentially unchanged. Spirometry is very similar, but diffusing capacity is slightly reduced from previous number Clinical correlation suggested
== END ==
PROVIDERS: PCP Internal Medicine; Referring Provider Internal Medicine Cardiovascular Disease; Visit Provider Internal Medicine Cardiovascular Disease
DX: J44.9 Chronic obstructive pulmonary disease, unspecified (principal); R94.2 Abnormal results of pulmonary function studies
CPT/HCPCS: 94060; 94726; 94729

== ENCOUNTER → 2022-02-21 12:59 | Outpatient (CLI) | payer MEDICARE, SELFPAY ==
[2021-12-29 16:34] VITALS: BMI 34.4
[2022-02-21 13:45] LABS: HEMOLYSIS < 15 (0-50); Iron 39 ug/dL (49-181)
[2022-02-21 13:57] LABS: Percent Iron Saturation 14 % (20-50); Total Iron Binding Capacity 281 ug/dL (261-462); Transferrin 204 mg/dL (206-381)
[2022-02-21 14:20] LABS: Ferritin 39 ng/mL (18-464)
[2022-02-21 16:15] LABS: Clostridium Difficile Tox PCR Negative for C. diff (Negative)
== END ==
PROVIDERS: PCP Internal Medicine; Referring Provider Internal Medicine Gastroenterology; Visit Provider Internal Medicine Gastroenterology
DX: D64.9 Anemia, unspecified (principal)
CPT/HCPCS: 82728; 83540; 83550; 87493

== ENCOUNTER 2022-03-07 12:56 | Emergency (ER) | payer MEDICARE, SELFPAY ==
[2021-12-29 16:34] VITALS: BMI 34.4
[2022-03-07] VITALS (8 sets, daily range): BP systolic 132–153; BP diastolic 61–69; PULSE 59–70; RESP 18–26; O2SAT 95–98; BMI 34.1
--- NOTE | 2022-03-07 13:31 | ED.RECABL ---
HPI - Recheck/Abnormal Lab/Rx <Blanco Pratt PA-C - Last Filed: 03/07/22 17:49> General Chief Complaint: Recheck/Abnormal Lab/Rx Stated Complaint: Something IV, Sent From Dr Dove Time Seen by Provider: 03/07/22 13:12 Mode of arrival: Family Vehicle History of Present Illness HPI narrative: This is a 76-year-old male sent by his primary care provider, Dr. Mckee, due to a reported lab value of a potassium of 2.8. Patient states that he has had diarrhea for the last 3 weeks due to his proton therapy for his prostate cancer. Denies any significant chest pain, shortness of breath, fevers, nausea, vomiting, or any other concerning signs or symptoms. Patient does state that overall he feels weak due to the diarrhea. Related Data Home Medications Medication Instructions Recorded Confirmed liothyronine 5 mcg tablet 10 mcg PO DAILY tab 04/18/19 03/06/22 levothyroxine 75 mcg capsule 75 mcg PO DAILY 01/12/20 03/06/22 metoprolol succinate 25 mg 12.5 mg PO BEDTIME 01/12/20 03/06/22 tablet,extended release 24 hr tamsulosin 0.4 mg capsule (Flomax) 0.4 mg PO QPM 10/19/20 03/06/22 amiodarone 200 mg tablet 100 mg PO QPM tab 12/17/21 03/06/22 Vitamin D3 50 mg PO DAILY 12/29/21 03/06/22 cartilage 40 mg-collagen II 10 1 tab PO DAILY 12/29/21 03/06/22 mg-boron 5 mg-hyaluronate 3.3 mg tablet ([facility]) garlic 5,000 mcg tablet 5,000 mcg PO DAILY 12/29/21 03/06/22 glucosamine-chondroitin 250 mg-200 1 tab PO DAILY 12/29/21 03/06/22 mg tablet (Osteo Bi-Flex) horse chestnut 150 mg capsule 150 mg PO BID 12/29/21 03/06/22 metoprolol succinate 25 mg 25 mg PO DAILY 12/29/21 03/06/22 tablet,extended release 24 hr omega-3 fatty acids 1,000 mg PO DAILY 12/29/21 03/06/22 zinc 1 tab PO DAILY 12/29/21 03/06/22 ciprofloxacin HCl 500 mg tablet 500 mg PO BID 03/06/22 03/06/22 (Cipro) metronidazole 500 mg tablet 500 mg PO TID 03/06/22 03/06/22 rivaroxaban 20 mg tablet (Xarelto) 20 mg PO DAILY 03/06/22 03/06/22 Previous Rx's Medication Instructions Recorded lovastatin 40 mg tablet 40 mg PO Q DAY #90 tab 03/04/17 enalapril maleate 5 mg tablet 5 mg PO QDAY #90 tab 08/03/17 finasteride 5 mg tablet 5 mg PO DAILY #90 tab 03/06/21 potassium chloride 10 mEq 10 meq PO DAILY #14 tab 03/07/22 tablet,extended release (K-Tab) Allergies Allergy/AdvReac Type Severity Reaction Status Date / Time latex Allergy Verified 03/07/22 13:07 Review of Systems <Blanco Pratt PA-C - Last Filed: 03/07/22 17:49> Review of Systems Narrative: Positive for diarrhea, weakness Negative for chest pain, shortness of breath, fevers, nausea, vomiting Patient History <Blanco Pratt PA-C - Last Filed: 03/07/22 17:49> Medical History Asthma (11/04/11) Atrial flutter (03/20/17) Benign prostatic hyperplasia (11/04/11) Body mass index (BMI) of 30.0 to 39.9 (10/27/11) BPH w urinary obs/LUTS Controlled type 2 diabetes mellitus (10/03/16) Diabetes Diverticulosis of sigmoid colon (03/20/17) Elevated PSA Elevated PSA Essential hypertension (10/27/11) Family history of prostate cancer Gastroesophageal reflux disease (03/01/14) History of primary bladder cancer History of primary bladder cancer History of UTI HLD (hyperlipidemia) Hyperlipidemia (10/27/11) Hypothyroid Lower urinary tract symptoms (LUTS) Malignant neoplasm of urinary bladder (10/11/16) Melena Mild cognitive impairment Neoplasm of uncertain behavior of bladder Osteoarthritis Persistent atrial fibrillation Prostate cancer RBBB plus LA hemiblock Tubular adenoma of colon (03/20/17) Surgical History History of appendectomy History of cardiac radiofrequency ablation History of cystoscopy History of knee surgery Hx of rotator cuff surgery Family History Father CAD (coronary artery disease) Hyperlipidemia Hypertension Hearing impairment Mother CAD (coronary artery disease) Hypertension Hyperlipidemia Cancer Social History marital status: household members: spouse occupational status: previously employed Smoking Status: Never smoker alcohol intake: never substance use type: does not use caffeine: Yes Smoking Status: Never smoker alcohol intake frequency: other Substance Use Type: does not use Exam <Blanco Pratt PA-C - Last Filed: 03/07/22 17:49> Narrative Exam Narrative: GENERAL: Well-developed patient, in mild distress. HEAD: Atraumatic. Normocephalic. EYES: Pupils equal round and reactive. Extraocular motions intact. No scleral icterus. No injection or drainage. ENT: Nose without bleeding, purulent drainage. Throat without erythema, tonsillar hypertrophy or exudate. Airway patent. NECK: Trachea midline. Non tender CARDIOVASCULAR: Regular rate and rhythm without murmurs, gallops, or rubs. RESPIRATORY: Clear to auscultation. Breath sounds equal bilaterally. No wheezes, rales, or rhonchi. GASTROINTESTINAL: Abdomen soft, non-tender, nondistended. EXTREMITIES: No edema or joint tenderness. BACK: Nontender without deformity or crepitance. No flank tenderness. NEURO: AOx3. SKIN: No rash or erythema of visible areas Initial Vital Signs Initial Vital Signs: Vital Signs Pulse Rate 64 03/07/22 13:13 Pulse Oximetry 95 03/07/22 13:13 <Tashia Mcduffie DO - Last Filed: 03/08/22 08:49> Initial Vital Signs Initial Vital Signs: Vital Signs Pulse Rate 64 03/07/22 13:13 Pulse Oximetry 95 03/07/22 13:13 Course <Blanco Pratt PA-C - Last Filed: 03/07/22 17:49> Orders Ordered: Discontinued Medications Sodium Chloride (Normal Saline 0.9%) 1,000 mls @ 1,000 mls/hr IV BOLUS ONE Stop: 03/07/22 14:50 Last Infusion: 03/07/22 15:32 Dose: 0 mls/hr Documented by: Admin: 03/07/22 13:59 Dose: 1,000 mls/hr Documented by: YOLY Potassium Chloride (Potassium Chloride 20 Meq Tab) 40 meq PO NOW ONE Stop: 03/07/22 13:52 Last Admin: 03/07/22 13:59 Dose: 40 meq Documented by: YOLY Vital Signs Vital signs: Vital Signs - 8 hr 03/07/22 13:13 03/07/22 13:14 03/07/22 13:30 Pulse Rate 64 70 63 Respiratory Rate 24 23 Blood Pressure 153/67 H Pulse Oximetry 95 98 97 03/07/22 13:31 03/07/22 14:00 03/07/22 14:30 Pulse Rate 62 65 59 L Respiratory Rate 20 26 H 20 Blood Pressure 132/61 134/62 Pulse Oximetry 97 98 03/07/22 15:00 03/07/22 15:30 Pulse Rate 59 L 61 Respiratory Rate 18 20 Blood Pressure 137/63 142/69 H Pulse Oximetry <Tashia Mcduffie DO - Last Filed: 03/08/22 08:49> Orders Ordered: Discontinued Medications Sodium Chloride (Normal Saline 0.9%) 1,000 mls @ 1,000 mls/hr IV BOLUS ONE Stop: 03/07/22 14:50 Last Infusion: 03/07/22 15:32 Dose: 0 mls/hr Documented by: Admin: 03/07/22 13:59 Dose: 1,000 mls/hr Documented by: YOLY Potassium Chloride (Potassium Chloride 20 Meq Tab) 40 meq PO NOW ONE Stop: 03/07/22 13:52 Last Admin: 03/07/22 13:59 Dose: 40 meq Documented by: YOLY Vital Signs Vital signs: Vital Signs - 8 hr 03/07/22 13:13 03/07/22 13:14 03/07/22 13:30 Pulse Rate 64 70 63 Respiratory Rate 24 23 Blood Pressure 153/67 H Pulse Oximetry 95 98 97 03/07/22 13:31 03/07/22 14:00 03/07/22 14:30 Pulse Rate 62 65 59 L Respiratory Rate 20 26 H 20 Blood Pressure 132/61 134/62 Pulse Oximetry 97 98 03/07/22 15:00 03/07/22 15:30 Pulse Rate 59 L 61 Respiratory Rate 18 20 Blood Pressure 137/63 142/69 H Pulse Oximetry MDM - Recheck/Abnormal Lab/Rx <Blanco rPatt PA-C - Last Filed: 03/07/22 17:49> Lab Data Result diagrams: 03/07/22 13:20 03/07/22 13:20 Labs: Lab Results 03/07/22 03/07/22 03/07/22 Range/Units 13:20 13:20 13:20 WBC 9.8 (4.5-11.0) X10^3/uL RBC 3.52 L (4.5-5.9) X10^6/uL Hgb 9.8 L (13.5-17.5) g/dL Hct 29.3 L (41-53) % MCV 83.2 (80-100) fL MCH 27.9 (26-34) PG MCHC 33.6 (30-36) % RDW 17.0 H (11.6-14.8) % Plt Count 261 (150-400) X10^3/uL Neut % (Auto) 84.1 H (50-75) % Lymph % (Auto) 5.4 L (25-40) % [place] % (Auto) 8.9 (3-14) % Eos % (Auto) 0.8 L (2-4) % Baso % (Auto) 0.8 (0-2) % Neut # (Auto) 8200 H (1880-3291) /uL Lymph # (Auto) 500 L (5393-3437) /uL [facility] # (Auto) 900 (0-900) /uL Eos # (Auto) 100 (0-450) /uL Baso # (Auto) 100 (0-100) /uL Sodium 141 (137-145) mmol/L Potassium 3.1 L (3.4-5.1) mmol/L Chloride 106 (98-107) mmol/L Carbon Dioxide 30 (22-32) mmol/L BUN 27 H (9-20) mg/dL Creatinine 1.00 (0.66-1.25) mg/dL Estimated GFR > 60 (>60) mL/min BUN/Creatinine Ratio 27.0 H (6-22) Glucose 93 (80-110) mg/dL Calcium 8.0 L (8.4-10.2) mg/dL Magnesium 1.7 (1.6-2.3) mg/dL Total Bilirubin 0.3 (0.2-1.3) mg/dL AST 24 (17-59) IU/L ALT 18 (<50) IU/L Alkaline Phosphatase 47 (38-126) U/L Total Protein 6.8 (6.3-8.2) g/dL Albumin 3.5 (3.5-5.0) g/dL Globulin 3.3 (1.7-4.1) g/dL Albumin/Globulin Ratio 1.1 (1.0-2.8) Urine Color Urine Appearance Urine pH (4.5-8.0) Ur Specific [place] (1.000-1.035) Urine Protein (Negative) Urine Glucose (UA) (Negative) g/dL Urine Ketones (NEGATIVE) Urine Occult Blood (Negative) Urine Nitrate (Negative) Urine Bilirubin (NEGATIVE) Urine Urobilinogen (0.2) E.U./dL Ur Leukocyte Esterase (NEGATIVE) Urine RBC (0-5/HPF) Urine WBC (0-5/HPF) Ur Squamous Epith Cells (0-5/HPF) Uric Acid Crystals (None) Amorphous Sediment Urine Bacteria (None) Urine Mucus (Negative) Ur Culture Indicated? 03/07/22 Range/Units 16:37 WBC (4.5-11.0) X10^3/uL RBC (4.5-5.9) X10^6/uL Hgb (13.5-17.5) g/dL Hct (41-53) % MCV (80-100) fL MCH (26-34) PG MCHC (30-36) % RDW (11.6-14.8) % Plt Count (150-400) X10^3/uL Neut % (Auto) (50-75) % Lymph % (Auto) (25-40) % [place] % (Auto) (3-14) % Eos % (Auto) (2-4) % Baso % (Auto) (0-2) % Neut # (Auto) (8944-5165) /uL Lymph # (Auto) (5586-1784) /uL [facility] # (Auto) (0-900) /uL Eos # (Auto) (0-450) /uL Baso # (Auto) (0-100) /uL Sodium (137-145) mmol/L Potassium (3.4-5.1) mmol/L Chloride (98-107) mmol/L Carbon Dioxide (22-32) mmol/L BUN (9-20) mg/dL Creatinine (0.66-1.25) mg/dL Estimated GFR (>60) mL/min BUN/Creatinine Ratio (6-22) Glucose (80-110) mg/dL Calcium (8.4-10.2) mg/dL Magnesium (1.6-2.3) mg/dL Total Bilirubin (0.2-1.3) mg/dL AST (17-59) IU/L ALT (<50) IU/L Alkaline Phosphatase (38-126) U/L Total Protein (6.3-8.2) g/dL Albumin (3.5-5.0) g/dL Globulin (1.7-4.1) g/dL Albumin/Globulin Ratio (1.0-2.8) Urine Color Yellow Urine Appearance Sl cloudy Urine pH 5.0 (4.5-8.0) Ur Specific [place] 1.025 (1.000-1.035) Urine Protein Trace H (Negative) Urine Glucose (UA) Negative (Negative) g/dL Urine Ketones Negative (NEGATIVE) Urine Occult Blood Negative (Negative) Urine Nitrate Negative (Negative) Urine Bilirubin Negative (NEGATIVE) Urine Urobilinogen 0.2 (0.2) E.U./dL Ur Leukocyte Esterase Negative (NEGATIVE) Urine RBC None seen (0-5/HPF) Urine WBC 0-1/hpf (0-5/HPF) Ur Squamous Epith Cells 0-1 /hpf (0-5/HPF) Uric Acid Crystals Many H (None) Amorphous Sediment 1+ Urine Bacteria None seen (None) Urine Mucus 1+ H (Negative) Ur Culture Indicated? Cult not indicated ECG Data Interpretation: EKG shows atrial fibrillation with a rate of 63 beats per minute and free of any signs of ischemia or ectopy. No ST segmental elevation or depression. No T wave inversions MDM Narrative Medical decision making narrative: This is a 76-year-old male presents to the emergency department due to hypokalemia on outpatient labs. Lab work in the emergency department showed potassium of 3.1. EKG showed atrial fibrillation which is chronic for the patient but no acute T-wave changes or other abnormalities.Due to the potassium level of 3.1 oral potassium resupplementation was ordered and given. Patient will be discharged with oral supplementation and instructed to follow-up with his primary care provider. Recommended he continue taking his oral potassium supplement that he takes at home and has been prescribed. Patient was noted to be anemic with a hemoglobin 9.8 but upon record review appears to be chronic for him. <Tashia Froy, DO - Last Filed: 03/08/22 08:49> Lab Data Labs: Lab Results 03/07/22 03/07/22 03/07/22 Range/Units 13:20 13:20 13:20 WBC 9.8 (4.5-11.0) X10^3/uL RBC 3.52 L (4.5-5.9) X10^6/uL Hgb 9.8 L (13.5-17.5) g/dL Hct 29.3 L (41-53) % MCV 83.2 (80-100) fL MCH 27.9 (26-34) PG MCHC 33.6 (30-36) % RDW 17.0 H (11.6-14.8) % Plt Count 261 (150-400) X10^3/uL Neut % (Auto) 84.1 H (50-75) % Lymph % (Auto) 5.4 L (25-40) % [place] % (Auto) 8.9 (3-14) % Eos % (Auto) 0.8 L (2-4) % Baso % (Auto) 0.8 (0-2) % Neut # (Auto) 8200 H (8693-3434) /uL Lymph # (Auto) 500 L (8491-9284) /uL [facility] # (Auto) 900 (0-900) /uL Eos # (Auto) 100 (0-450) /uL Baso # (Auto) 100 (0-100) /uL Sodium 141 (137-145) mmol/L Potassium 3.1 L (3.4-5.1) mmol/L Chloride 106 (98-107) mmol/L Carbon Dioxide 30 (22-32) mmol/L BUN 27 H (9-20) mg/dL Creatinine 1.00 (0.66-1.25) mg/dL Estimated GFR > 60 (>60) mL/min BUN/Creatinine Ratio 27.0 H (6-22) Glucose 93 (80-110) mg/dL Calcium 8.0 L (8.4-10.2) mg/dL Magnesium 1.7 (1.6-2.3) mg/dL Total Bilirubin 0.3 (0.2-1.3) mg/dL AST 24 (17-59) IU/L ALT 18 (<50) IU/L Alkaline Phosphatase 47 (38-126) U/L Total Protein 6.8 (6.3-8.2) g/dL Albumin 3.5 (3.5-5.0) g/dL Globulin 3.3 (1.7-4.1) g/dL Albumin/Globulin Ratio 1.1 (1.0-2.8) Urine Color Urine Appearance Urine pH (4.5-8.0) Ur Specific [place] (1.000-1.035) Urine Protein (Negative) Urine Glucose (UA) (Negative) g/dL Urine Ketones (NEGATIVE) Urine Occult Blood (Negative) Urine Nitrate (Negative) Urine Bilirubin (NEGATIVE) Urine Urobilinogen (0.2) E.U./dL Ur Leukocyte Esterase (NEGATIVE) Urine RBC (0-5/HPF) Urine WBC (0-5/HPF) Ur Squamous Epith Cells (0-5/HPF) Uric Acid Crystals (None) Amorphous Sediment Urine Bacteria (None) Urine Mucus (Negative) Ur Culture Indicated? 03/07/22 Range/Units 16:37 WBC (4.5-11.0) X10^3/uL RBC (4.5-5.9) X10^6/uL Hgb (13.5-17.5) g/dL Hct (41-53) % MCV (80-100) fL MCH (26-34) PG MCHC (30-36) % RDW (11.6-14.8) % Plt Count (150-400) X10^3/uL Neut % (Auto) (50-75) % Lymph % (Auto) (25-40) % [facility] % (Auto) (3-14) % Eos % (Auto) (2-4) % Baso % (Auto) (0-2) % Neut # (Auto) (4992-5058) /uL Lymph # (Auto) (3572-5984) /uL [facility] # (Auto) (0-900) /uL Eos # (Auto) (0-450) /uL Baso # (Auto) (0-100) /uL Sodium (137-145) mmol/L Potassium (3.4-5.1) mmol/L Chloride (98-107) mmol/L Carbon Dioxide (22-32) mmol/L BUN (9-20) mg/dL Creatinine (0.66-1.25) mg/dL Estimated GFR (>60) mL/min BUN/Creatinine Ratio (6-22) Glucose (80-110) mg/dL Calcium (8.4-10.2) mg/dL Magnesium (1.6-2.3) mg/dL Total Bilirubin (0.2-1.3) mg/dL AST (17-59) IU/L ALT (<50) IU/L Alkaline Phosphatase (38-126) U/L Total Protein (6.3-8.2) g/dL Albumin (3.5-5.0) g/dL Globulin (1.7-4.1) g/dL Albumin/Globulin Ratio (1.0-2.8) Urine Color Yellow Urine Appearance Sl cloudy Urine pH 5.0 (4.5-8.0) Ur Specific [place] 1.025 (1.000-1.035) Urine Protein Trace H (Negative) Urine Glucose (UA) Negative (Negative) g/dL Urine Ketones Negative (NEGATIVE) Urine Occult Blood Negative (Negative) Urine Nitrate Negative (Negative) Urine Bilirubin Negative (NEGATIVE) Urine Urobilinogen 0.2 (0.2) E.U./dL Ur Leukocyte Esterase Negative (NEGATIVE) Urine RBC None seen (0-5/HPF) Urine WBC 0-1/hpf (0-5/HPF) Ur Squamous Epith Cells 0-1 /hpf (0-5/HPF) Uric Acid Crystals Many H (None) Amorphous Sediment 1+ Urine Bacteria None seen (None) Urine Mucus 1+ H (Negative) Ur Culture Indicated? Cult not indicated ECG Data Interpretation: EKG shows atrial fibrillation with a rate of 63 beats per minute and free of any signs of ischemia or ectopy. No ST segmental elevation or depression. No T wave inversions [place]-Normal sinus rhythm rate 63 KS interval 210 QRS 136 QTC 511 right bundle-branch block present similar to previous EKG and December 2021 Discharge Plan Departure Patient Disposition: Home Clinical Impression: Acute hypokalemia, Anemia Instructions: Diarrhea, DI for Hypokalemia Activity Restrictions/Additional Instructions: Thank you for coming to the [facility] Emergency Department today. Your potassium level here in the emergency department was 3.1. We have given you oral supplementation to help with this. Please continue taking your oral potassium supplement as previously prescribed. Please follow-up with your primary care provider for further evaluation and long-term management. Your urine showed no evidence of a urinary tract infection. I hope you feel better soon. Prescriptions: New potassium chloride [K-Tab] 10 mEq tablet extended release 10 meq PO DAILY Qty: 14 0RF No Action lovastatin 40 MG tablet 40 mg PO Q DAY Qty: 90 3RF enalapril maleate 5 MG tablet 5 mg PO QDAY Qty: 90 1RF metoprolol succinate 25 mg Tablet Extended Release 24 Hr 12.5 mg PO BEDTIME 0RF levothyroxine 75 mcg Capsule 75 mcg PO DAILY 0RF tamsulosin [Flomax] 0.4 MG capsule 0.4 mg PO QPM 0RF metronidazole 500 mg Tablet 500 mg PO TID 0RF ciprofloxacin HCl [Cipro] 500 mg Tablet 500 mg PO BID 0RF Xarelto 20 mg Tablet 20 mg PO DAILY 0RF Rx Instructions: must administer with evening meal metoprolol succinate 25 mg Tablet Extended Release 24 Hr 25 mg PO DAILY 0RF Rx Instructions: 25mg AM 12.5mg pm Vitamin D3 50 mg 50 mg PO DAILY 0RF horse chestnut 150 mg Capsule 150 mg PO BID 0RF zinc Tablet,Chewable 1 tab PO DAILY 0RF omega-3 fatty acids Capsule 1,000 mg PO DAILY 0RF glucosamine-chondroitin [Osteo Bi-Flex] 250-200 mg Tablet 1 tab PO DAILY 0RF garlic 5,000 mcg Tablet 5,000 mcg PO DAILY 0RF [facility] 40-10-5-3.3 mg Tablet 1 tab PO DAILY 0RF Rx Instructions: Karimi brand liothyronine 5 mcg tablet 10 mcg PO DAILY 0RF amiodarone 200 mg tablet 100 mg PO QPM 0RF finasteride 5 mg tablet 5 mg PO DAILY Qty: 90 3RF Referrals: Bigg Orona MD [Primary Care Provider] - <Tashia Mcduffie DO - Last Filed: 03/08/22 08:49> Cosign ED Attending Sueature Attestation: I was immediately available in the department for consultation. Documentation has been reviewed. I agree with assessment and plan.
[2022-03-07 13:32] LABS: Add Manual Diff / Slide Review NO; Basophils Absolute Auto 100 /uL (0-100); Basophils Percent Auto 0.8 % (0-2); Eosinophils Absolute Auto 100 /uL (0-450); Eosinophils Percent Auto 0.8 % (2-4); Hematocrit 29.3 % (41-53); Hemoglobin 9.8 g/dL (13.5-17.5); Lymphocytes Absolute Auto 500 /uL (1100-4500); Lymphocytes Percent Auto 5.4 % (25-40); Mean Corpuscular HGB Conc 33.6 % (30-36); Mean Corpuscular Hemoglobin 27.9 PG (26-34); Mean Corpuscular Volume 83.2 fL (80-100); Monocytes Absolute Auto 900 /uL (0-900); Monocytes Percent Auto 8.9 % (3-14); Neutrophils Absolute Auto 8200 /uL (1500-7000); Neutrophils Percent Auto 84.1 % (50-75); Platelet Count 261 X10^3/uL (150-400); Red Blood Cell Count 3.52 X10^6/uL (4.5-5.9); White Blood Cell Count 9.8 X10^3/uL (4.5-11.0)
[2022-03-07 13:43] LABS: Alanine Aminotransferase 18 IU/L (<50); Albumin 3.5 g/dL (3.5-5.0); Albumin Globulin Ratio 1.1 (1.0-2.8); Alkaline Phosphatase 47 U/L (38-126); Aspartate Aminotransferase 24 IU/L (17-59); Bilirubin Total 0.3 mg/dL (0.2-1.3); Blood Urea Nitrogen 27 mg/dL (9-20); Carbon Dioxide 30 mmol/L (22-32); Chloride 106 mmol/L (98-107); Estimated Glomerular Filt Rate > 60 mL/min (>60); Globulin 3.3 g/dL (1.7-4.1); Glucose 93 mg/dL (80-110); HEMOLYSIS < 15 (0-50); Potassium 3.1 mmol/L (3.4-5.1); Sodium 141 mmol/L (137-145); Total Protein 6.8 g/dL (6.3-8.2)
[2022-03-07] MEDS: SODIUM CHLORIDE 0.9% 1,000 ML 1000 ML IV (13:59)
[2022-03-07] MEDS: POTASSIUM CHLORIDE 20 MEQ TAB 40 MEQ PO (13:59)
[2022-03-07 15:11] LABS: Magnesium 1.7 mg/dL (1.6-2.3)
--- NOTE | 2022-03-07 16:38 | PC.NURSE ---
Pt refused last vitals
[2022-03-07 17:09] LABS: Appearance Urine UA SL CLOUDY; Bilirubin Urine UA NEGATIVE (NEGATIVE); Color Urine UA YELLOW; Glucose Urine UA NEGATIVE (Negative); Ketones Urine UA NEGATIVE (NEGATIVE); Leukocyte Esterase Urine UA NEGATIVE (NEGATIVE); Nitrite Urine UA NEGATIVE (Negative); Occult Blood Urine UA NEGATIVE (Negative); Protein Urine UA TRACE (Negative); Specific Gravity Urine UA 1.025 (1.000-1.035); Urobilinogen Urine UA 0.2 E.U./dL (0.2)
[2022-03-07 17:44] LABS: Amorphous Sediment Urine 1+; Bacteria Urine None Seen; Culture Indicated Urine Cult Not Indicated; Mucus Urine 1+ (Negative); RBC Urine None Seen (0-5/HPF); Squamous Epithelial Cell Urine 0-1 /HPF (0-5/HPF); Uric Acid Crystals Urine Many; WBC Urine 0-1/HPF (0-5/HPF)
== END 2022-03-07 17:53 | disposition home or self-care (01) ==
PROVIDERS: Emergency Medicine; Emergency Provider Physician Assistant Medical; PCP Internal Medicine; Referring Provider Internal Medicine Hematology & Oncology
DX: E87.6 Hypokalemia (principal); D64.9 Anemia, unspecified; R07.9 Chest pain, unspecified; C61 Malignant neoplasm of prostate; C67.9 Malignant neoplasm of bladder, unspecified
CPT/HCPCS: 36415; 80048; 80053; 81001; 83735; 84153; 85025; 93005; 93010; 99284

== ENCOUNTER → 2022-03-28 09:22 | Outpatient (CLI) | payer MEDICARE, SELFPAY ==
[2021-12-29 16:34] VITALS: BMI 34.4
[2022-03-28 10:36] LABS: Alanine Aminotransferase 20 IU/L (<50); Albumin 3.5 g/dL (3.5-5.0); Albumin Globulin Ratio 1.1 (1.0-2.8); Alkaline Phosphatase 66 U/L (38-126); Aspartate Aminotransferase 22 IU/L (17-59); BUN Creatinine Ratio 27.7 (6-22); Bilirubin Total 0.4 mg/dL (0.2-1.3); Blood Urea Nitrogen 28 mg/dL (9-20); Calcium 8.2 mg/dL (8.4-10.2); Carbon Dioxide 29 mmol/L (22-32); Chloride 102 mmol/L (98-107); Estimated Glomerular Filt Rate > 60 mL/min (>60); Globulin 3.3 g/dL (1.7-4.1); Glucose 167 mg/dL (80-110); HEMOLYSIS 18 (0-50); Magnesium 1.9 mg/dL (1.6-2.3); Potassium 4.5 mmol/L (3.4-5.1); Sodium 137 mmol/L (137-145); Total Protein 6.8 g/dL (6.3-8.2)
== END ==
PROVIDERS: PCP Internal Medicine Cardiovascular Disease; Referring Provider Internal Medicine Cardiovascular Disease; Visit Provider Internal Medicine Cardiovascular Disease
DX: I50.810 Right heart failure, unspecified (principal)
CPT/HCPCS: 36415; 80053; 83735

== ENCOUNTER 2022-04-10 22:43 | Observation (INO) | payer MEDICARE, SELFPAY ==
[2021-12-29 16:34] VITALS: BMI 34.4
[2022-04-10 22:52] VITALS: BP 105/53; PULSE 79; RESP 21; TEMP 36.8; O2SAT 98; BMI 33.0
--- NOTE | 2022-04-10 22:59 | DI.RAD.S_ITS ---
PROCEDURE: XR CHEST 1V INDICATIONS: chest pain TECHNIQUE: One view of the chest was acquired. COMPARISON: [facility], CR, XR CHEST 1V, 10/19/2020, 17:00. FINDINGS: Surgical changes and devices: None. Lungs and pleura: Lungs are clear. No pleural effusions or pneumothorax. Mediastinum: Mediastinal contours appear normal. Heart size is normal. Bones and chest wall: No suspicious bony lesions. Overlying soft tissues appear unremarkable. IMPRESSION: 1. No acute cardiopulmonary disease. Dictated by: Stephane Song M.D. on 04/11/2022 at 0:34 Approved by: Stephane Song M.D. on 04/11/2022 at 0:34
[2022-04-10 23:09] LABS: INR 2.6 (0.9-1.3); Prothrombin Time 29.4 SECONDS (10.1-12.7)
[2022-04-10 23:12] LABS: Add Manual Diff / Slide Review NO; Basophils Absolute Auto 0 /uL (0-100); Basophils Percent Auto 0.6 % (0-2); Eosinophils Absolute Auto 0 /uL (0-450); Eosinophils Percent Auto 0.5 % (2-4); Hematocrit 29.1 % (41-53); Hemoglobin 9.4 g/dL (13.5-17.5); Lymphocytes Absolute Auto 400 /uL (1100-4500); Lymphocytes Percent Auto 4.8 % (25-40); Mean Corpuscular HGB Conc 32.4 % (30-36); Mean Corpuscular Hemoglobin 26.5 PG (26-34); Mean Corpuscular Volume 81.8 fL (80-100); Monocytes Absolute Auto 900 /uL (0-900); Monocytes Percent Auto 11.1 % (3-14); Neutrophils Absolute Auto 6600 /uL (1500-7000); Platelet Count 346 X10^3/uL (150-400); Red Blood Cell Count 3.55 X10^6/uL (4.5-5.9); Red Cell Distribution Width 18.2 % (11.6-14.8); White Blood Cell Count 7.9 X10^3/uL (4.5-11.0)
[2022-04-10 23:13] LABS: Alanine Aminotransferase 13 IU/L (<50); Albumin 3.3 g/dL (3.5-5.0); Alkaline Phosphatase 52 U/L (38-126); Aspartate Aminotransferase 17 IU/L (17-59); BUN Creatinine Ratio 34.7 (6-22); Bilirubin Total 0.4 mg/dL (0.2-1.3); Blood Urea Nitrogen 33 mg/dL (9-20); Calcium 7.8 mg/dL (8.4-10.2); Carbon Dioxide 26 mmol/L (22-32); Chloride 100 mmol/L (98-107); Creatine Kinase 21 U/L (55-170); Estimated Glomerular Filt Rate > 60 mL/min (>60); Globulin 3.2 g/dL (1.7-4.1); Glucose 137 mg/dL (80-110); HEMOLYSIS < 15 (0-50); Lipase 34 U/L (23-300); Magnesium 1.9 mg/dL (1.6-2.3); Potassium 3.9 mmol/L (3.4-5.1); Sodium 134 mmol/L (137-145); Total Protein 6.5 g/dL (6.3-8.2)
--- NOTE | 2022-04-10 23:21 | ED_ITS ---
HPI - Dizziness General Chief Complaint: Dizziness Stated Complaint: Dizziness, Fall Time Seen by Provider: 04/10/22 23:06 Source: patient and EMS Mode of arrival: Ambulatory History of Present Illness HPI Narrative: Patient here for dizziness. Brought in by EMS from home. Patient had not taken any medications tonight. Was getting ready for bed. He was in his bedroom. [place] lightheaded and weak and slumped against the wall and slid down. Denies hitting his head. No injury. Patient had dizzy episode on the of this month as well at a doctor's office for hearing aids. Walking out of the building again felt dizzy and weak. He did fall down injuring his left upper arm. Has bruising that is healing from that. Has full active range of motion of the left shoulder elbow and wrist and hand without any difficulty. Patient has history of atrial fibrillation on Xarelt. Followed by [facility], Dr. Tatum. As well 1 of his new or partners. Patient denies any black or bloody stools. Patient states has had episodes of these dizziness in the past. He states no known cause for this other than medication changes sometimes make it worse for him. Blood pressure by EMS systolic 80 has now improved. No recent illness nausea vomiting diarrhea or cough cold congestion. He does not have a family doctor. Symptoms have resolved. Related Data Home Medications Medication Instructions Recorded Confirmed liothyronine 5 mcg tablet 10 mcg PO DAILY 04/18/19 04/11/22 levothyroxine 75 mcg capsule 75 mcg PO DAILY 01/12/20 04/11/22 metoprolol succinate 25 mg 12.5 mg PO BEDTIME 01/12/20 04/11/22 tablet,extended release 24 hr tamsulosin 0.4 mg capsule (Flomax) 0.4 mg PO QPM 10/19/20 04/11/22 amiodarone 200 mg tablet 100 mg PO QPM 12/17/21 04/11/22 metoprolol succinate 25 mg 25 mg PO DAILY 12/29/21 04/11/22 tablet,extended release 24 hr rivaroxaban 20 mg tablet (Xarelto) 20 mg PO DAILY 03/06/22 04/11/22 Previous Rx's Medication Instructions Recorded lovastatin 40 mg tablet 40 mg PO Q DAY #90 tabs 03/04/17 enalapril maleate 5 mg tablet 5 mg PO QDAY #90 tabs 08/03/17 finasteride 5 mg tablet 5 mg PO DAILY #90 tabs 03/06/21 rivaroxaban 10 mg tablet (Xarelto) 20 mg PO DAILY #10 tabs 04/11/22 Allergies Allergy/AdvReac Type Severity Reaction Status Date / Time latex Allergy Verified 03/07/22 13:07 Review of Systems Review of Systems Narrative: GENERAL: Denies chills, fatigue, malaise, fever, sweats. HEENT: Denies sinus pain, ear pain, sore throat RESPIRATORY: Denies dyspnea, cough CARDIOVASCULAR: Denies chest pain, palpitations GASTROINTESTINAL: Denies nausea, vomiting, abdominal pain : Denies dysuria, frequency, hematuria MUSCULOSKELETAL: denies muscle or bony pain SKIN: Denies rash, skin lesions NEUROLOGIC: Positive for dizzy and weakness, negative for numbness ROS Unobtainable: All systems reviewed & are unremarkable except as noted in HPI and below Patient History Medical History Anticoagulated Asthma (11/04/11) Atrial flutter (03/20/17) Benign prostatic hyperplasia (11/04/11) Body mass index (BMI) of 30.0 to 39.9 (10/27/11) BPH w urinary obs/LUTS Controlled type 2 diabetes mellitus (10/03/16) Diabetes Diverticulosis of sigmoid colon (03/20/17) Elevated PSA Elevated PSA Essential hypertension (10/27/11) Family history of prostate cancer Gastroesophageal reflux disease (03/01/14) History of primary bladder cancer History of primary bladder cancer History of UTI HLD (hyperlipidemia) Hyperlipidemia (10/27/11) Hypothyroid Lower urinary tract symptoms (LUTS) Malignant neoplasm of urinary bladder (10/11/16) Melena Mild cognitive impairment Neoplasm of uncertain behavior of bladder Osteoarthritis Persistent atrial fibrillation Prostate cancer RBBB plus LA hemiblock Tubular adenoma of colon (03/20/17) Surgical History History of appendectomy History of cardiac radiofrequency ablation History of cystoscopy History of knee surgery Hx of rotator cuff surgery Family History Father CAD (coronary artery disease) Hyperlipidemia Hypertension Hearing impairment Mother CAD (coronary artery disease) Hypertension Hyperlipidemia Cancer Social History marital status: household members: spouse occupational status: previously employed Smoking Status: Never smoker alcohol intake: never substance use type: does not use caffeine: Yes Smoking Status: Never smoker alcohol intake frequency: other Substance Use Type: does not use Exam Narrative Exam Narrative: GENERAL: in no distress, not toxic not dyspneic HEAD: Normocephalic. Atraumatic nontender scalp and face and skull. EYES: Pupils equal round No scleral icterus. ENT: Mucous membranes moist. NECK: Trachea midline. No midline tenderness or step of the cervical thoracic and lumbar spine. CARDIOVASCULAR: Irregularly irregular rate and rhythm RESPIRATORY: Clear to auscultation. Breath sounds equal bilaterally. No wheezes, rales, or rhonchi. GASTROINTESTINAL: Abdomen soft, non-tender EXTREMITIES: No gross deformities. Nontender left upper extremity there is healing ecchymosis of the upper arm. BACK: No flank tenderness. NEURO: AOx4. SKIN: Warm and dry PSYCH: Not anxious, is cooperative Initial Vital Signs Initial Vital Signs: Vital Signs Temperature 98.2 F 04/10/22 22:52 Pulse Rate 79 04/10/22 22:52 Respiratory Rate 21 04/10/22 22:52 Blood Pressure 105/53 L 04/10/22 22:52 Pulse Oximetry 98 04/10/22 22:52 Oxygen Delivery Method 04/10/22 22:52 Scores NIH Stroke Scale Level of Conciousness: Alert, keenly responsive Ask month/age: Answers both questions correctly. Open/close eyes, close hand: Performs both tasks correctly Best gaze horizontal: Normal Visual puckett: No visual loss Facial palsy: Normal symetrical movement Left arm drift: No drift for full 10 sec Right arm drift: No drift for full 10 sec Left leg drift: No drift for full 5 sec Right leg drift: No drift for full 5 sec Limb ataxia: Absent Sensory on face/arms/legs: Normal, no sensory loss Best language: No aphasia, normal Dysarthria: Normal Extinction or inattention: No abnormality Total NIH Stroke scale score: 0 Course Course Course Narrative: No new issues Decision to Admit Date: 04/11/22 Decision to Admit time: 02:05 Orders Ordered: Discontinued Medications Acetaminophen (Acetaminophen 325 Mg Tablet) 650 mg PO Q6HR PRN PRN Reason: Fever/Mild Pain (1-3) Amiodarone HCl (Amiodarone 200 Mg Tablet) 100 mg PO QPM COUNT INCLUDES THE [facility] Aspirin (Aspirin Ec 81 Mg Tablet) 81 mg PO DAILY COUNT INCLUDES THE [facility] Last Admin: 04/11/22 10:00 Dose: 81 mg Documented By: NAIN Atorvastatin Calcium (Atorvastatin 20 Mg Tablet) 80 mg PO BEDTIME COUNT INCLUDES THE [facility] Enalapril Maleate (Enalapril 5 Mg Tablet) 5 mg PO DAILY COUNT INCLUDES THE [facility] Last Admin: 04/11/22 09:59 Dose: 5 mg Documented By: NAIN Finasteride (Finasteride 5 Mg Tablet) 5 mg PO DAILY COUNT INCLUDES THE [facility] Last Admin: 04/11/22 09:59 Dose: 5 mg Documented By: NAIN Sodium Chloride (Normal Saline 0.9%) 1,000 mls @ 150 mls/hr IV CONT COUNT INCLUDES THE [facility] Last Admin: 04/11/22 00:17 Dose: Not Given Documented By: NED Levothyroxine Sodium (Levothyroxine 75 Mcg Tablet) 75 mcg PO QACBREAK COUNT INCLUDES THE [facility] Last Admin: 04/11/22 06:17 Dose: 75 mcg Documented By: CORBIN Liothyronine Sodium (Liothyronine 5 Mcg Tablet) 10 mcg PO DAILY COUNT INCLUDES THE [facility] Last Admin: 04/11/22 10:00 Dose: 10 mcg Documented By: NAIN Metoprolol Succinate (Metoprolol Er 25 Mg Tablet) 12.5 mg PO BEDTIME COUNT INCLUDES THE [facility] Metoprolol Succinate (Metoprolol Er 25 Mg Tablet) 25 mg PO DAILY COUNT INCLUDES THE [facility] Last Admin: 04/11/22 10:00 Dose: 25 mg Documented By: NAIN Naloxone HCl (Naloxone 0.4 Mg/Ml Vial) 0.2 mg IV Q2MIN PRN PRN Reason: Opiate Reversal Ondansetron HCl (Ondansetron 4 Mg/2 Ml Inj) 4 mg IV Q8HR PRN PRN Reason: Nausea And Vomiting Rivaroxaban (Rivaroxaban 10 Mg Tablet) 20 mg PO DAILY COUNT INCLUDES THE [facility] Last Admin: 04/11/22 09:59 Dose: 20 mg Documented By: NAIN Tamsulosin HCl (Tamsulosin 0.4 Mg Capsule) 0.4 mg PO QPM COUNT INCLUDES THE [facility] Reevaluation(s) Reevaluation #1: Spoke with patient results and agrees and understands need for admission for TIA/stroke evaluation. Time: 02:05 Consultations Consultation #1: Spoke with cardiology dr arboleda, agrees and understands need for evaluation for stroke/admission Time: 00:36 Consultation #2: Spoke with hospitalist, Olivia, will admit Time: 02:16 Vital Signs Vital signs: Vital Signs - 8 hr 04/10/22 22:52 Temperature 98.2 F Pulse Rate 79 Respiratory Rate 21 Blood Pressure 105/53 L Pulse Oximetry 98 Oxygen Delivery Method Room Air MDM - Dizziness Differential Diagnosis Differential diagnosis: Likely adverse reaction to drug, benign paroxysmal positional vertigo, orthostatic hypotension, vertebral basilar insufficiency, cerebrovascular accident, transient cerebral ischemia and other (Arrhythmia) Lab Data Result diagrams: 04/11/22 05:25 04/11/22 05:25 Labs: Lab Results 04/10/22 04/10/22 04/10/22 Range/Units 22:54 22:54 22:54 WBC 7.9 (4.5-11.0) X10^3/uL RBC 3.55 L (4.5-5.9) X10^6/uL Hgb 9.4 L (13.5-17.5) g/dL Hct 29.1 L (41-53) % MCV 81.8 (80-100) fL MCH 26.5 (26-34) PG MCHC 32.4 (30-36) % RDW 18.2 H (11.6-14.8) % Plt Count 346 (150-400) X10^3/uL Neut % (Auto) 83.0 H (50-75) % Lymph % (Auto) 4.8 L (25-40) % [place] % (Auto) 11.1 (3-14) % Eos % (Auto) 0.5 L (2-4) % Baso % (Auto) 0.6 (0-2) % Neut # (Auto) 6600 (8201-5519) /uL Lymph # (Auto) 400 L (2495-3240) /uL [place] # (Auto) 900 (0-900) /uL Eos # (Auto) 0 (0-450) /uL Baso # (Auto) 0 (0-100) /uL PT 29.4 H (10.1-12.7) SECONDS INR 2.6 H (0.9-1.3) Sodium 134 L (137-145) mmol/L Potassium 3.9 (3.4-5.1) mmol/L Chloride 100 (98-107) mmol/L Carbon Dioxide 26 (22-32) mmol/L BUN 33 H (9-20) mg/dL Creatinine 0.95 (0.66-1.25) mg/dL Estimated GFR > 60 (>60) mL/min BUN/Creatinine Ratio 34.7 H (6-22) Glucose 137 H (80-110) mg/dL Hemoglobin A1c (4.0-6.0) % Calcium 7.8 L (8.4-10.2) mg/dL Magnesium 1.9 (1.6-2.3) mg/dL Total Bilirubin 0.4 (0.2-1.3) mg/dL AST 17 (17-59) IU/L ALT 13 (<50) IU/L Alkaline Phosphatase 52 (38-126) U/L Total Creatine Kinase 21 L (55-170) U/L CK-MB (CK-2) TNP CK-MB (CK-2) Rel Index TNP Troponin I < 0.012 (0.01-0.034) ng/mL Total Protein 6.5 (6.3-8.2) g/dL Albumin 3.3 L (3.5-5.0) g/dL Globulin 3.2 (1.7-4.1) g/dL Albumin/Globulin Ratio 1.0 (1.0-2.8) Lipase 34 (23-300) U/L / Range/Units 22:54 WBC (4.5-11.0) X10^3/uL RBC (4.5-5.9) X10^6/uL Hgb (13.5-17.5) g/dL Hct (41-53) % MCV (80-100) fL MCH (26-34) PG MCHC (30-36) % RDW (11.6-14.8) % Plt Count (150-400) X10^3/uL Neut % (Auto) (50-75) % Lymph % (Auto) (25-40) % [place] % (Auto) (3-14) % Eos % (Auto) (2-4) % Baso % (Auto) (0-2) % Neut # (Auto) (8644-0304) /uL Lymph # (Auto) (4316-7291) /uL [place] # (Auto) (0-900) /uL Eos # (Auto) (0-450) /uL Baso # (Auto) (0-100) /uL PT (10.1-12.7) SECONDS INR (0.9-1.3) Sodium (137-145) mmol/L Potassium (3.4-5.1) mmol/L Chloride (98-107) mmol/L Carbon Dioxide (22-32) mmol/L BUN (9-20) mg/dL Creatinine (0.66-1.25) mg/dL Estimated GFR (>60) mL/min BUN/Creatinine Ratio (6-22) Glucose (80-110) mg/dL Hemoglobin A1c 6.2 H (4.0-6.0) % Calcium (8.4-10.2) mg/dL Magnesium (1.6-2.3) mg/dL Total Bilirubin (0.2-1.3) mg/dL AST (17-59) IU/L ALT (<50) IU/L Alkaline Phosphatase (38-126) U/L Total Creatine Kinase (55-170) U/L CK-MB (CK-2) CK-MB (CK-2) Rel Index Troponin I (0.01-0.034) ng/mL Total Protein (6.3-8.2) g/dL Albumin (3.5-5.0) g/dL Globulin (1.7-4.1) g/dL Albumin/Globulin Ratio (1.0-2.8) Lipase (23-300) U/L Imaging Data CT scan - head: Radiologist's Impression: [address] [address] [address] Scan Report Signed Patient: Leandro Allen MR#: [id number] : 1945 Acct:[id number] Age/Sex: 77 / M Date of Service: 04/10/22 Loc: ED Accession Number: [id number] ?? Procedure: CT head/brain wo con Ordering Provider: Bryan Harrell MD PROCEDURE:? CT HEAD/BRAIN WO CON ? INDICATIONS:? Dizziness ? TECHNIQUE:? Noncontrast 4.5 mm thick angled axial sections acquired from the foramen magnum to the vertex, with coronal and sagittal reformats.? For radiation dose reduction, the following was used:? automated exposure control, adjustment of mA and/or kV according to p atient size.? ? COMPARISON:? None. ? FINDINGS:? Image quality:? Excellent.? ? CSF spaces:? Basal cisterns are patent.? No extra-axial fluid collections.? There is moderate cerebral volume loss, with resultant ventricular and sulcal prominence.? ? Brain:? No intracranial hemorrhage, mass, or mass effect.? There are subcortical, periventricular and deep white matter hypodensities consistent with moderate chronic small vessel ischemic changes.? There is a small region of encephalomalacia within the inferior right cerebellar hemisphere suggesting sequelae of a prior small infarct.? The herman-white matter junction otherwise appears preserved.? There is intracranial internal carotid artery atherosclerosis.? ? Skull and face:? Calvarium and visualized facial bones appear intact, without suspicious lesions.? ? Sinuses:? Visualized sinuses and mastoids are clear.? ? IMPRESSION:? ? 1. No acute intracranial abnormality. ? 2. Moderate chronic white matter small vessel ischemic changes and cerebral volume loss. ? 3. 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 ? ? Dictated by: Stephane Song M.D. on 04/11/2022 at 0:01 ? ? Approved by: Stephane Song M.D. on 04/11/2022 at 0:03 ? Chest x-ray: Radiologist's Impression: [address] [address] XRay Report Signed Patient: Leandro Allen MR#: [id number] : 1945 Acct:[id number] Age/Sex: 77 / M Date of Service: 04/10/22 Loc: ED Accession Number: [id number] ?? Procedure: XR chest 1V Ordering Provider: Bryan Harrell MD PROCEDURE:? XR CHEST 1V ? INDICATIONS:? chest pain ? TECHNIQUE:? One view of the chest was acquired.? ? COMPARISON:? [facility], ANDREW, XR CHEST 1V, 10/19/2020, 17:00. ? FINDINGS:? ? Surgical changes and devices:? None.? ? Lungs and pleura:? Lungs are clear.? No pleural effusions or pneumothorax.? ? Mediastinum:? Mediastinal contours appear normal.? Heart size is normal.? ? Bones and chest wall:? No suspicious bony lesions.? Overlying soft tissues appear unremarkable.? ? IMPRESSION:? ? 1.? No acute cardiopulmonary disease. ? ? ? Dictated by: Stephane Song M.D. on 04/11/2022 at 0:34 ? ? Approved by: Stephane Song M.D. on 04/11/2022 at 0:34 ? CTA - brain/neck: Radiologist's Impression: [address] [address] [address] Scan Report Signed Patient: Leandro Allen MR#: [id number] : 1945 Acct:[id number] Age/Sex: 77 / M Date of Service: 04/11/22 Loc: ED Accession Number: [id number] ?? Procedure: CT angio head and neck Ordering Provider: Bryan Harrell MD PROCEDURE:? CT ANGIO HEAD AND NECK ? INDICATIONS:? Dizziness ? TECHNIQUE:? After the administration of intravenous contrast, 1 mm thick sections acquired from the aortic arch through the [place].? Post-contrast 4.5 mm thick sections then re-acquired from the foramen magnum to the vertex.? 3-dimensional lyfkhfv-hqrdhufmv-xeuijdeuzf (MIP) and/or volume rendering reformats were acquired of the central intracranial vasculature and neck separately. For radiation dose reduction, the following was used:? automated exposure control, adjustment of mA and/or kV according to patient size.? ? COMPARISON:? [facility], MR, MR STROKE, 02/24/2019, 9:37.? [facility], CT, CT HEAD/BRAIN WO CON, 04/10/2022, 23:32. ? FINDINGS:? Image quality:? There is motion artifact limiting evaluation.? ? BRAIN:? CSF spaces:? Basal cisterns are patent.? There is moderate cerebral volume loss, with resultant ventricular and sulcal prominence.? There is an extra-axial fluid collection redemonstrated in the left middle cranial fossa measuring approximately 4.3 x 2.9 cm in transverse dimension.? There is associated mass effect on the left temporal lobe.? The findings are similar to the prior study and likely represent an arachnoid cyst.? ? Brain:? No intracranial hematoma collections, mass, or mass effect.? There are subcortical, periventricular and deep white matter hypodensities consistent with moderate chronic small vessel ischemic changes.? The herman-white matter junction appears preserved. ?There is intracranial internal carotid artery atherosclerosis.? ? Skull and face:? Calvarium and facial bones appear intact, without suspicious lesions.? Orbits appear normal.? ? Sinuses:? Sinuses and mastoids are clear.? ? HEAD CT ANGIOGRAPHY:? Anterior circulation:? There is occlusion of the left internal carotid artery with subsequent reconstitution of flow distally at the level of the [place] .? The paired anterior cerebral arteries appear patent bilaterally.? The anterior communicating artery also appears patent. The middle cerebral arteries appear patent bilaterally.? ? Posterior circulation:? The distal right vertebral artery is again not well visualized suggestive of a segmental occlusion or high-grade stenosis beginning at the level of C2.? There is subsequent reconstitution of flow.? The vertebral arteries subsequently join to form a patent basilar artery.? The posterior cerebral arteries appears patent bilaterally.? ? NECK CT ANGIOGRAPHY:? Carotid system:? The great vessels demonstrate a bovine aortic arch with common origin of the right brachiocephalic and left common carotid arteries as they arise from the aortic arch.? The origins of the common carotid arteries appear patent.? There is bilateral calcified plaque at the carotid bifurcations.? There is subsequent occlusion of the left internal carotid artery beginning at the level of the carotid bulb.? On the right, there is calcified plaque in the carotid bulb with narrowing of up to approximately 50-60%.? ? Posterior circulation:? The origins of the vertebral arteries both appear grossly patent. ?The distal right vertebral artery demonstrates a short segment of high-grade stenosis or occlusion beginning at the level of C2.? There is subsequent reconstitution of flow proximal to the origin of the basilar artery. ? ? Soft tissues:? Visualized neck soft tissues demonstrate no suspicious abnormalities.? ? Bones:? No suspicious bony lesions.? Visualized cervical spine demonstrates multilevel degenerative changes including moderate to severe degenerative disc disease in the mid and lower cervical spine.? There is also moderate to severe multilevel facet arthropathy. ? ? IMPRESSION:? ? 1. No definite acute intracranial abnormality. ? 2. Short segment occlusion or high-grade stenosis involving the distal right vertebral artery appears similar to the prior study given differences in technique. ? 3. 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 Findings are similar to the prior study given differences in technique and appear chronic. ? 4. Narrowing of 50-60% in the right carotid bulb. ? 5. Cystic lesion in the left middle cranial fossa likely represents an arachnoid cyst.? Findings are similar to the prior study. ? 6.? Moderate chronic white matter small vessel ischemic changes and cerebral volume loss. ? ? Any quantitative measurements of stenosis were performed using NASCET criteria.? ? ? Dictated by: Stephane Song M.D. on 04/11/2022 at 1:33 ? ? Approved by: Stephane Song M.D. on 04/11/2022 at 1:48 ? ECG Data Interpretation: Atrial fibrillation rate [address] elevation or depression MDM Narrative Medical decision making narrative: Code stroke was not called at the time has originally call over EMS was for t rauma. However on arrival patient did not have a ground level fall. Patient is on a blood thinner. No modified trauma call either. Symptoms resolved on arrival. Discharge Plan Departure Patient Disposition: Admitted as Observation Clinical Impression: Dizziness Admit Date/Time: 04/11/22 02:24 Admit Provider: Stacey Mckee
[2022-04-10 23:24] LABS: Troponin I < 0.012 ng/mL (0.01-0.034)
--- NOTE | 2022-04-10 23:26 | DI.CT.S_ITS ---
PROCEDURE: CT HEAD/BRAIN WO CON INDICATIONS: Dizziness TECHNIQUE: Noncontrast 4.5 mm thick angled axial sections acquired from the foramen magnum to the vertex, with coronal and sagittal reformats. For radiation dose reduction, the following was used: automated exposure control, adjustment of mA and/or kV according to patient size. COMPARISON: None. FINDINGS: Image quality: Excellent. CSF spaces: Basal cisterns are patent. No extra-axial fluid collections. There is moderate cerebral volume loss, with resultant ventricular and sulcal prominence. Brain: No intracranial hemorrhage, mass, or mass effect. There are subcortical, periventricular and deep white matter hypodensities consistent with moderate chronic small vessel ischemic changes. There is a small region of encephalomalacia within the inferior right cerebellar hemisphere suggesting sequelae of a prior small infarct. The herman-white matter junction otherwise appears preserved. There is intracranial internal carotid artery atherosclerosis. Skull and face: Calvarium and visualized facial bones appear intact, without suspicious lesions. Sinuses: Visualized sinuses and mastoids are clear. IMPRESSION: 1. No acute intracranial abnormality. 2. Moderate chronic white matter small vessel ischemic changes and cerebral volume loss. 3. 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 Dictated by: Stephane Song M.D. on 04/11/2022 at 0:01 Approved by: Stephane Song M.D. on 04/11/2022 at 0:03
[2022-04-10 23:34] VITALS: BP 117/59
[2022-04-10 23:44] VITALS: O2SAT 85
[2022-04-11] VITALS (15 sets, daily range): BP systolic 108–136; BP diastolic 57–68; PULSE 66–89; RESP 14–27; TEMP 35.9–36.4; O2SAT 96–100; BMI 31.6
--- NOTE | 2022-04-11 00:31 | DI.CT.S_ITS ---
PROCEDURE: CT ANGIO HEAD AND NECK INDICATIONS: Dizziness TECHNIQUE: After the administration of intravenous contrast, 1 mm thick sections acquired from the aortic arch through the [place] of [place]. Post-contrast 4.5 mm thick sections then re-acquired from the foramen magnum to the vertex. 3-dimensional gknagjq-asnpokkdy-klwaprbgia (MIP) and/or volume rendering reformats were acquired of the central intracranial vasculature and neck separately. For radiation dose reduction, the following was used: automated exposure control, adjustment of mA and/or kV according to patient size. COMPARISON: [facility], MR, MR STROKE, 02/24/2019, 9:37. [facility], CT, CT HEAD/BRAIN WO CON, 04/10/2022, 23:32. FINDINGS: Image quality: There is motion artifact limiting evaluation. BRAIN: CSF spaces: Basal cisterns are patent. There is moderate cerebral volume loss, with resultant ventricular and sulcal prominence. There is an extra-axial fluid collection redemonstrated in the left middle cranial fossa measuring approximately 4.3 x 2.9 cm in transverse dimension. There is associated mass effect on the left temporal lobe. The findings are similar to the prior study and likely represent an arachnoid cyst. Brain: No intracranial hematoma collections, mass, or mass effect. There are subcortical, periventricular and deep white matter hypodensities consistent with moderate chronic small vessel ischemic changes. The herman-white matter junction appears preserved. There is intracranial internal carotid artery atherosclerosis. Skull and face: Calvarium and facial bones appear intact, without suspicious lesions. Orbits appear normal. Sinuses: Sinuses and mastoids are clear. HEAD CT ANGIOGRAPHY: Anterior circulation: There is occlusion of the left internal carotid artery with subsequent reconstitution of flow distally at the level of the [place] of [place]. The paired anterior cerebral arteries appear patent bilaterally. The anterior communicating artery also appears patent. The middle cerebral arteries appear patent bilaterally. Posterior circulation: The distal right vertebral artery is again not well visualized suggestive of a segmental occlusion or high-grade stenosis beginning at the level of C2. There is subsequent reconstitution of flow. The vertebral arteries subsequently join to form a patent basilar artery. The posterior cerebral arteries appears patent bilaterally. NECK CT ANGIOGRAPHY: Carotid system: The great vessels demonstrate a bovine aortic arch with common origin of the right brachiocephalic and left common carotid arteries as they arise from the aortic arch. The origins of the common carotid arteries appear patent. There is bilateral calcified plaque at the carotid bifurcations. There is subsequent occlusion of the left internal carotid artery beginning at the level of the carotid bulb. On the right, there is calcified plaque in the carotid bulb with narrowing of up to approximately 50-60%. Posterior circulation: The origins of the vertebral arteries both appear grossly patent. The distal right vertebral artery demonstrates a short segment of high-grade stenosis or occlusion beginning at the level of C2. There is subsequent reconstitution of flow proximal to the origin of the basilar artery. Soft tissues: Visualized neck soft tissues demonstrate no suspicious abnormalities. Bones: No suspicious bony lesions. Visualized cervical spine demonstrates multilevel degenerative changes including moderate to severe degenerative disc disease in the mid and lower cervical spine. There is also moderate to severe multilevel facet arthropathy. IMPRESSION: 1. No definite acute intracranial abnormality. 2. Short segment occlusion or high-grade stenosis involving the distal right vertebral artery appears similar to the prior study given differences in technique. 3. Occlusion of the left internal carotid artery beginning at its origin at the carotid bulb with subsequent reconstitution at the level of the [id number]. Findings are similar to the prior study given differences in technique and appear chronic. 4. Narrowing of 50-60% in the right carotid bulb. 5. Cystic lesion in the left middle cranial fossa likely represents an arachnoid cyst. Findings are similar to the prior study. 6. Moderate chronic white matter small vessel ischemic changes and cerebral volume loss. Any quantitative measurements of stenosis were performed using NASCET criteria. Dictated by: Stephane Song M.D. on 04/11/2022 at 1:33 Approved by: Stephane Song M.D. on 04/11/2022 at 1:48
[2022-04-11 02:49] LABS: COVID19 -Nasal RAPID Negative (Negative)
--- NOTE | 2022-04-11 03:10 | DI.MRI.S_ITS ---
PROCEDURE: MR HEAD/BRAIN WO CON INDICATIONS: Dizziness, ?TIA TECHNIQUE: Non-contrast axial T1 spin echo, axial T2 fast spin echo, sagittal and axial FLAIR, coronal T2 fast spin echo, axial gradient echo, axial diffusion and ADC through the brain. COMPARISON: [facility], CT, CT ANGIO HEAD AND NECK, 04/11/2022, 0:34. FINDINGS: Image quality: Excellent. CSF spaces: Ventricles appear symmetric in size and shape. Basal cisterns are patent. No extra-axial fluid collections. Brain: No intracranial bleeds or mass effects. There is cerebral volume loss for age. There are periventricular and deep white matter chronic small vessel ischemic changes. Brainstem appears normal. Diffusion-weighted images show no acute ischemic insults. No chronic ischemic insults. Normal intravascular flow voids are present. Skull and face: Calvarial bone marrow is normal in signal. Orbits are normal. Sinuses: Sinuses and mastoids are clear. IMPRESSION: 1. No acute process. No recent infarct. 2. Mild volume loss and small vessel ischemic disease. Dictated by: Giorgi Daniels M.D. on 04/11/2022 at 10:57 Approved by: Giorgi Daniels M.D. on 04/11/2022 at 10:58
[2022-04-11 04:00] LABS: Hemoglobin A1C% w Est Avg Glu 6.2 % (4.0-6.0)
[2022-04-11 05:34] LABS: Add Manual Diff / Slide Review NO; Basophils Absolute Auto 0 /uL (0-100); Basophils Percent Auto 0.4 % (0-2); Eosinophils Absolute Auto 0 /uL (0-450); Eosinophils Percent Auto 0.8 % (2-4); Hematocrit 30.1 % (41-53); Hemoglobin 9.8 g/dL (13.5-17.5); Lymphocytes Absolute Auto 400 /uL (1100-4500); Lymphocytes Percent Auto 7.2 % (25-40); Mean Corpuscular HGB Conc 32.4 % (30-36); Mean Corpuscular Hemoglobin 26.5 PG (26-34); Mean Corpuscular Volume 81.6 fL (80-100); Monocytes Absolute Auto 800 /uL (0-900); Monocytes Percent Auto 12.8 % (3-14); Neutrophils Absolute Auto 4800 /uL (1500-7000); Neutrophils Percent Auto 78.8 % (50-75); Platelet Count 327 X10^3/uL (150-400); Red Blood Cell Count 3.69 X10^6/uL (4.5-5.9); Red Cell Distribution Width 18.1 % (11.6-14.8); White Blood Cell Count 6.1 X10^3/uL (4.5-11.0)
[2022-04-11 05:51] LABS: Blood Urea Nitrogen 27 mg/dL (9-20); Calcium 7.9 mg/dL (8.4-10.2); Carbon Dioxide 27 mmol/L (22-32); Chloride 102 mmol/L (98-107); Cholesterol 106 mg/dL (140-199); Estimated Glomerular Filt Rate > 60 mL/min (>60); Glucose 107 mg/dL (80-110); HDL Cholesterol 32 mg/dL (40-60); HEMOLYSIS < 15 (0-50); LDL Cholesterol Calculated 59 mg/dL (<100); Potassium 3.5 mmol/L (3.4-5.1); Sodium 136 mmol/L (137-145); Triglycerides 76 mg/dL (35-150)
--- NOTE | 2022-04-11 06:16 | P.HP_ITS ---
History of Present Illness History of Present Illness Date Patient Seen: 04/11/22 Time Patient Seen: 04:00 Chief complaint: Dizziness, Fall Narrative: Leandro Allen is a 77-year-old male with high-grade prostate adenocarcinoma undergoing chemotherapy at [facility], atrial fibrillation anticoagulated on Xarelto, hypothyroidism, and hyperlipidemia, presented to the emergency department with symptoms of dizziness. He was in his usual state of health when he got up last night to go to bed after watching TV. He was going into the bathroom apparently got dizzy and fell last night. He states that he did not hit his head nor did he black out. He has had some bruising of his left upper and forearm area however last night the only injury he sustained was a laceration over his elbow. He takes Xarelto for atrial fibrillation. He denies headaches, visual changes, difficulty swallowing, speech impairment, neck pain, shortness of breath, nausea or vomiting, abdominal pain, dysuria, diarrhea constipation. He does have lower extremity swelling that he states is resolving after having been given some IV medication that made his legs blow up like a balloon as he states. Patient has a history of atrial fibrillation and his last echocardiogram of record locally was done in 2019 where he had a 55-60% EF with a moderately dilated right ventricle and mildly reduced right ventricular systolic function, he has mild left ventricular hypertrophy, severely dilated left atrium which appeared to be stable at that time and aortic trileaflet valve with mild regurgitation stable at that time, and right ventricular systolic pressure with increased in severity in 2019. He was admitted for GI bleed in December of this year and developed atrial fibrillation given his history of cardiac disease the patient did undergo echocardiogram.? This indicated the left ventricular systolic function was normal without focal wall motion abnormalities.? His ejec tion fraction was 55-60%.? The right ventricle is moderately dilated.? Right systolic ventricular function is mildly reduced.? Left atrium severely dilated, right atrium severely dilated.? There was moderate mitral calcification. He is afebrile, blood pressure 117/67, heart rate 89, respiratory rate 16, oxygen saturation of 98% on room air, he weighs 91.7 kg with a BMI of 31.6. Chest x-ray was within normal limits. Head CT identified a small region of encephalomalacia likely from a prior infarct in the right cerebellar hemisphere, head and neck CTA indicated short segment occlusion or high-grade stenosis involving the distal right vertebral artery appears similar to a prior MRI of the head that was not seen at all in February of 2019 and a subsequent Doppler indicated antegrade flow. There is occlusion of the left internal carotid artery that was also seen in the February 2019 MRI as well as the later March 16 carotid ultrasound. Finally there is narrowing of 50-60% of the right carotid bulb which was characterized as severely stenotic in the MRI of head on 06/2019 and less than 50% seen on a subsequent March 16 carotid ultrasound. Temp is 97.5?, blood pressure 117/67, heart rate 89, respiratory rate 16, oxygen saturation of 98% on room air, he weighs 91.7 kg with a BMI of 31.6. He is mildly anemic with a hemoglobin and hematocrit 9.8 and 30.1 respectively, sodium is 136, his A1c is 6.2, calcium is 7.9, which corrects to 8.5 normal, lipase is 34 and COVID-19 PCR is negative. Family medical history: Father had coronary artery disease, hearing impairment, dyslipidemia and hypertension. Mother had coronary artery disease, cancer, hyperlipidemia and hypertension. Patient History Medical History Anticoagulated Asthma (11/04/11) Atrial flutter (03/20/17) Benign prostatic hyperplasia (11/04/11) Body mass index (BMI) of 30.0 to 39.9 (10/27/11) BPH w urinary obs/LUTS Controlled type 2 diabetes mellitus (10/03/16) Diabetes Diverticulosis of sigmoid colon (03/20/17) Elevated PSA Elevated PSA Essential hypertension (10/27/11) Family history of prostate cancer Gastroesophageal reflux disease (03/01/14) History of primary bladder cancer History of primary bladder cancer History of UTI HLD (hyperlipidemia) Hyperlipidemia (10/27/11) Hypothyroid Lower urinary tract symptoms (LUTS) Malignant neoplasm of urinary bladder (10/11/16) Melena Mild cognitive impairment Neoplasm of uncertain behavior of bladder Osteoarthritis Persistent atrial fibrillation Prostate cancer RBBB plus LA hemiblock Tubular adenoma of colon (03/20/17) Surgical History History of appendectomy History of cardiac radiofrequency ablation History of cystoscopy History of knee surgery Hx of rotator cuff surgery Family & Social History Family History Father CAD (coronary artery disease) Hyperlipidemia Hypertension Hearing impairment Mother CAD (coronary artery disease) Hypertension Hyperlipidemia Cancer Social History: household members spouse Prior Living Arrangements House Safety & Behavioral: Feels Safe in Current Yes Environment Been Physically Hurt or No Threatened By a Person Tobacco & Substance use: Smoking Status Never smoker alcohol intake never alcohol intake frequency other Substance Use Type does not use Meds Home Medications and Allergies Home Medications Medication Instructions Recorded Confirmed Type lovastatin 40 mg tablet 40 mg PO Q DAY #90 tabs 03/04/17 04/11/22 Rx enalapril maleate 5 mg tablet 5 mg PO QDAY #90 tabs 08/03/17 04/11/22 Rx liothyronine 5 mcg tablet 10 mcg PO DAILY 04/18/19 04/11/22 History levothyroxine 75 mcg capsule 75 mcg PO DAILY 01/12/20 04/11/22 History metoprolol succinate 25 mg 12.5 mg PO BEDTIME 01/12/20 04/11/22 History tablet,extended release 24 hr tamsulosin 0.4 mg capsule (Flomax) 0.4 mg PO QPM 10/19/20 04/11/22 History finasteride 5 mg tablet 5 mg PO DAILY #90 tabs 03/06/21 04/11/22 Rx amiodarone 200 mg tablet 100 mg PO QPM 12/17/21 04/11/22 History metoprolol succinate 25 mg 25 mg PO DAILY 12/29/21 04/11/22 History tablet,extended release 24 hr rivaroxaban 20 mg tablet (Xarelto) 20 mg PO DAILY 03/06/22 04/11/22 History rivaroxaban 10 mg tablet (Xarelto) 20 mg PO DAILY #10 tabs 04/11/22 Rx Allergies Allergy/AdvReac Type Severity Reaction Status Date / Time latex Allergy Verified 03/07/22 13:07 Review of Systems Review of Systems ROS: Yes All systems reviewed with the patient and are negative except as otherwise documented Exam Vital Signs (past 8 hours): - 04/10/22 22:52 04/10/22 23:34 04/10/22 23:44 Temperature 98.2 F Pulse Rate 79 Respiratory Rate 21 Blood Pressure 105/53 L 117/59 L Pulse Oximetry 98 85 L Oxygen Delivery Method Room Air Oxygen Flow Rate 04/11/22 00:00 04/11/22 00:30 04/11/22 01:00 Temperature Pulse Rate 78 89 77 Respiratory Rate 14 27 H Blood Pressure Pulse Oximetry 97 98 98 Oxygen Delivery Method Oxygen Flow Rate 04/11/22 01:30 04/11/22 02:00 04/11/22 02:31 Temperature Pulse Rate 72 77 72 Respiratory Rate Blood Pressure Pulse Oximetry 98 96 99 Oxygen Delivery Method Oxygen Flow Rate 04/11/22 02:32 04/11/22 02:32 04/11/22 02:30 Temperature Pulse Rate 77 Respiratory Rate Blood Pressure 115/63 Pulse Oximetry 99 Oxygen Delivery Method Room Air Oxygen Flow Rate 04/11/22 02:50 Temperature 97.5 F L Pulse Rate 89 Respiratory Rate 16 Blood Pressure 117/67 Pulse Oximetry 98 Oxygen Delivery Method Oxygen Flow Rate 0 Oxygen Delivery Method Room Air Oxygen Flow Rate 0 Narrative Exam Narrative: Gen: Alert, oriented, Ob 77 y.o. male, NAD HEENT: normocephalic, atraumatic, conjunctiva clear, sclera non-icteric, oral mucosa pink and moist Neck: supple, full ROM, no JVD, trachea is midline Resp: Lungs CTA, non-labored breathing CV: RRR, no murmur or rubs Abd: soft, non-tender, normoactive BTs Skin: Skin tear on the left elbow with bruising in the upper arm and lower forearm Neuro: Alert and oriented X 4 w/no focal deficits. Speech clear and coherent. Extremities: moves all 4 extremities, is ambulatory, negative Cori?s sign Psyche: normal mood and affect. Objective Labs Result Diagrams: 04/11/22 05:25 04/11/22 05:25 Labs: Laboratory Results - last 24 hr 04/10/22 04/10/22 04/10/22 22:54 22:54 22:54 WBC 7.9 RBC 3.55 L Hgb 9.4 L Hct 29.1 L MCV 81.8 MCH 26.5 MCHC 32.4 RDW 18.2 H Plt Count 346 Neut % (Auto) 83.0 H Lymph % (Auto) 4.8 L [place] % (Auto) 11.1 Eos % (Auto) 0.5 L Baso % (Auto) 0.6 Neut # (Auto) 6600 Lymph # (Auto) 400 L [place] # (Auto) 900 Eos # (Auto) 0 Baso # (Auto) 0 PT 29.4 H INR 2.6 H Sodium 134 L Potassium 3.9 Chloride 100 Carbon Dioxide 26 BUN 33 H Creatinine 0.95 Estimated GFR > 60 BUN/Creatinine Ratio 34.7 H Glucose 137 H Hemoglobin A1c Calcium 7.8 L Magnesium 1.9 Total Bilirubin 0.4 AST 17 ALT 13 Alkaline Phosphatase 52 Total Creatine Kinase 21 L CK-MB (CK-2) TNP CK-MB (CK-2) Rel Index TNP Troponin I < 0.012 Total Protein 6.5 Albumin 3.3 L Globulin 3.2 Albumin/Globulin Ratio 1.0 Triglycerides Cholesterol LDL Cholesterol, Calc HDL Cholesterol Lipase 34 SARS-CoV-2 (PCR) 04/10/22 04/11/22 04/11/22 22:54 02:28 05:25 WBC 6.1 RBC 3.69 L Hgb 9.8 L Hct 30.1 L MCV 81.6 MCH 26.5 MCHC 32.4 RDW 18.1 H Plt Count 327 Neut % (Auto) 78.8 H Lymph % (Auto) 7.2 L [place] % (Auto) 12.8 Eos % (Auto) 0.8 L Baso % (Auto) 0.4 Neut # (Auto) 4800 Lymph # (Auto) 400 L [place] # (Auto) 800 Eos # (Auto) 0 Baso # (Auto) 0 PT INR Sodium Potassium Chloride Carbon Dioxide BUN Creatinine Estimated GFR BUN/Creatinine Ratio Glucose Hemoglobin A1c 6.2 H Calcium Magnesium Total Bilirubin AST ALT Alkaline Phosphatase Total Creatine Kinase CK-MB (CK-2) CK-MB (CK-2) Rel Index Troponin I Total Protein Albumin Globulin Albumin/Globulin Ratio Triglycerides Cholesterol LDL Cholesterol, Calc HDL Cholesterol Lipase SARS-CoV-2 (PCR) Negative 04/11/22 05:25 WBC RBC Hgb Hct MCV MCH MCHC RDW Plt Count Neut % (Auto) Lymph % (Auto) [place] % (Auto) Eos % (Auto) Baso % (Auto) Neut # (Auto) Lymph # (Auto) [place] # (Auto) Eos # (Auto) Baso # (Auto) PT INR Sodium 136 L Potassium 3.5 Chloride 102 Carbon Dioxide 27 BUN 27 H Creatinine 0.90 Estimated GFR > 60 BUN/Creatinine Ratio 30.0 H Glucose 107 Hemoglobin A1c Calcium 7.9 L Magnesium 2.0 Total Bilirubin AST ALT Alkaline Phosphatase Total Creatine Kinase CK-MB (CK-2) CK-MB (CK-2) Rel Index Troponin I Total Protein Albumin Globulin Albumin/Globulin Ratio Triglycerides 76 Cholesterol 106 L LDL Cholesterol, Calc 59 HDL Cholesterol 32 L Lipase SARS-CoV-2 (PCR) Assessment & Plan Assessment & Plan narrative: Leandro Allen is admitted for further evaluation of a TIA versus CVA. ED provider spoke to the conciliation court judge transportation maintenance operator who agreed with him that the patient needed to come in for further evaluation. 1. TIA/Stroke * Cardiac telemetry * NIH score greater than 5 [X]no, ? NIH scoring and neuro checks q 4 hours * Dual antiplatelet therapy: No[X] patient is anticoagulated on Xarelto and takes low-dose aspirin * MR stroke scheduled for today * Complete Echo with bubble study for today * PT/OT/ST evaluation Hypertension, chronic, currently mildly hypotensive HLD ? Fasting lipid panel, pending for 0500 labs ? Atorvastatin 40 mg po at bedtime Risk stratification Fasting lipid panel pending for the morning A1c is 6.2 % [X] pre-diabetic Patient is observed overnight. Full code, is his proxy. COVID-19 COVID-19 status: Negative Result date/Date tested (Pos, Neg/Pending): 04/11/22 Time Spent With Patient Critical Care time: I spent a total of [] minutes of critical care time on this patient's care today; this time is exclusive of procedural time. Quality VTE Deep Vein Thrombosis/Pulmonary Embolism Present on Admission: No MIPS - Admit I confirm the patient?s Advance Care Plan is present, Code status is documented, Surrogate decision maker is in patient?s record [If Yes, STOP here]: Yes MIPS - DC The patient has current or prior documentation of left ventricular ejection fraction (LVEF) less than 40%, or moderate or severely depressed left ventricular systolic function.: No
[2022-04-11] MEDS: LEVOTHYROXINE 75 MCG TABLET PO (06:17)
--- NOTE | 2022-04-11 09:20 | PT.IIE ---
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 (04/11/22) Surgical History (Last Reviewed 04/11/22 @ 06:41 by GUALBERTO Shearer) History of appendectomy History of cardiac radiofrequency ablation History of cystoscopy History of knee surgery Hx of rotator cuff surgery Medical History (Last Reviewed 04/11/22 @ 06:41 by GUALBERTO Shearer) Anticoagulated Asthma (11/04/11) Atrial flutter (03/20/17) Benign prostatic hyperplasia (11/04/11) Body mass index (BMI) of 30.0 to 39.9 (10/27/11) BPH w urinary obs/LUTS Controlled type 2 diabetes mellitus (10/03/16) Diabetes Diverticulosis of sigmoid colon (03/20/17) Elevated PSA Elevated PSA Essential hypertension (10/27/11) Family history of prostate cancer Gastroesophageal reflux disease (03/01/14) History of primary bladder cancer History of primary bladder cancer History of UTI HLD (hyperlipidemia) Hyperlipidemia (10/27/11) Hypothyroid Lower urinary tract symptoms (LUTS) Malignant neoplasm of urinary bladder (10/11/16) Melena Mild cognitive impairment Neoplasm of uncertain behavior of bladder Osteoarthritis Persistent atrial fibrillation Prostate cancer RBBB plus LA hemiblock Tubular adenoma of colon (03/20/17) Physical Therapy Inpatient Evaluation/Re-Eval M1 PT/OT-IP Prior Functional Status Start: 04/11/22 12:20 Freq: NEEDED Status: Active Protocol: Document 04/11/22 09:20 AB (Rec: 04/11/22 12:30 AB [id number]) Medical Review Prior Functional Status Communication able to make needs known Mobility and Gait pt stated that he is modified independent with all mobilities and ambulation without AD but has been using a FWW for ~ 2 days due to dizziness; pt stated that spouse assists him with bed mobility needs Social History Household Members spouse Living Arrangements House Number of Floors (Floors) Two Floors Number of Stairs To Enter/Railing? pt stays on main level of the house no steps to enter Home Environment Standard Height Toilet,Walk in Shower,Tub/Shower Doors,Built -In Shower Seat Home Equipment Front Wheel Walker,Shower Seat without Backrest M2 PT-IP Current Condition Start: 04/11/22 12:20 Freq: NEEDED Status: Active Protocol: Document 04/11/22 09:20 AB (Rec: 04/11/22 12:30 AB [id number]) Physical Therapy Current Condition Current Condition Evaluation Date 04/11/22 Treatment Diagnosis dizziness; difficulty in walking Onset Date 04/11/22 M3 PT-IP Subjective Start: 04/11/22 12:20 Freq: NEEDED Status: Active Protocol: Document 04/11/22 09:20 AB (Rec: 04/11/22 12:30 AB [id number]) Subjective Physical Therapy Visit Type Type Initial Evaluation Visit Start Time 09:20 Visit Stop Time 09:35 Total Visit Minutes 15 Number of PLUG GROWER Visits 0 Physical Therapy Visit Comments Patient Comments stated that he is sleepy and just wants to sleep Therapy Pain Assessment Pain Present Pain Present Denied Pain M4 PT-IP Mobility and Gait Start: 04/11/22 12:20 Freq: NEEDED Status: Active Protocol: Document 04/11/22 09:20 AB (Rec: 04/11/22 12:30 AB [id number]) PT-Bed Mobility Assessment Supine to Sit Supine to Sit Maximum Assistance Sit to Supine Sit to Supine Standby Assistance PT-Transfer Assessment Sit to and From Stand Sit to and from Stand Standby Assistance,1 Person Assistance,Use of Upper Extremities Equipment Transfer Assistive Device Gait Belt,Front Wheeled Walker Orthotic/Prosthetic Devices or Brace: No Comments Mobility Comments BP in supine: 111/63. completed bed mobility supine to sit max A and cues. pt stated that assists him with bed mobility. completed sit to stand SBA and ambulated in room using FWW SBA ~ 30 ft . pt can be impulsive. pt requested to go back to bed. sit to supine SBA. positioned pt in bed. call light and table placed within reach. BP sitting after ambulation: 95/ 51 Gait Assessment Gait Gait Assistance Required: Standby Assistance Distance (Feet) 30 Able to Maintain Weight Bearing Status Yes During Gait Assistive Devices Assistive Device Gait Belt,Front Wheeled Walker Orthotic/Prosthetic Devices or Brace: No Gait Deviations General Gait Pattern Decreased Stride Length, Decreased Feet Clearance Factors Limiting Gait Function Factors Limiting Gait Function Decreased Activity Tolerance, Decreased Strength,Poor Balance,Poor Safety Awareness PT-Balance Assessment Sitting Balance and Reactions Static Sitting Balance Ability Good Dynamic Sitting Balance Ability Good Standing Balance and Reactions Static Standing Balance Ability Good Dynamic Standing Balance Ability Fair Device Used FWW M5 PT-IP Objective Assessments Start: 04/11/22 12:20 Freq: NEEDED Status: Active Protocol: Document 04/11/22 09:20 AB (Rec: 04/11/22 12:30 AB [id number]) Orientation Orientation/Cognition Level of Alertness Alert Orientation Name,Place,Situation Language Function Ability Hard of Hearing Safety Awareness Decreased Safety Awareness Gross Range of Motion Lower Extremity ROM Assessment Within Functional Limits Strength Lower Extremity Strength Assessment Within Functional Limits Coordination Assessment Gross Coordination Gross Coordination WNL Muscle Tone Muscle Tone WNL Yes M6 PT-IP Treatment Start: 04/11/22 12:20 Freq: NEEDED Status: Active Protocol: Document 04/11/22 09:20 AB (Rec: 04/11/22 12:30 AB [id number]) Physical Therapy Treatment Education Education Provided Safety M7 PT-IP Assessment and Plan Start: 04/11/22 12:20 Freq: NEEDED Status: Active Protocol: Document 04/11/22 09:20 AB (Rec: 04/11/22 12:30 AB [id number]) PT Summary Assessment and Plan Potential Rehabilitation Potential Fair Status of Condition at Evaluation Evolving Summary Impairments Pain,ROM,Strength,Balance, Coordination,Sensation,Tone, Cognition,Bed Mobility, Transfers,Gait,Activity Tolerance Assessment Summary pt requiring SBA with transfers and ambulation using FWW but with decrease in BP after ambulation from 111/63 to 95/51 but pt without c/o dizziness/lightheadedness. pt stated that spouse will be able to assist him at home. pt may go home when medically stable. Goals Bed Mobility Goal Independent Transfer Goal Independent,Front Wheeled Walker Gait Goal Independent,Front Wheel Walker Gait Distance 200 Other Goals improve ambulation without AD 250 ft SBA Days to Meet Goals 10 Frequency of Treatment Frequency Of Treatment Once a Day Treatment Plan Physical Therapy Treatment Plan Bed Mobility Training,Transfer Training,Gait Training, Therapeutic Exercise,Balance Retraining,Discharge Planning, Hot or Cold Pack,Neuromuscular Re-ed,Coordination Retraining Recommendations To Nursing Amount of Assist Needed 1 Person Assist Discharge Recommendations PT Discharge Recommendations Home with Assistance Transportation Needs at Discharge Private Vehicle
--- NOTE | 2022-04-11 09:58 | ST.IPSCREEN ---
The patient was laying in bed with eyes closed when MANAGER HOTEL arrived. He opened his eyes when the MANAGER HOTEL entered the room and stated he is trying to get some sleep before his MRI at 10:30. The pt agreed to participate in oral motor exam but refused swallow screen with thin water through straw cup. He reported no difficulty with chewing or swallowing and presented with clear, 100% intelligible speech. Pt presented with symmetrical features at rest and in motion. His tongue, jaw, and lip strength and ROM was WNL. Dentition was present and WNL. Structure and function of oral mechanism appears WNL for the purposes of speech and swallowing. Speech therapy is not indicated at this time as pt reports and presents as functioning at baseline level.
[2022-04-11] MEDS: ENALAPRIL 5 MG TABLET PO (09:59)
[2022-04-11] MEDS: RIVAROXABAN 10 MG TABLET 20 MG PO (09:59)
[2022-04-11] MEDS: FINASTERIDE 5 MG TABLET PO (09:59)
[2022-04-11] MEDS: ASPIRIN EC 81 MG TABLET PO (10:00)
[2022-04-11] MEDS: METOPROLOL ER 25 MG TABLET PO (10:00)
[2022-04-11] MEDS: LIOTHYRONINE 5 MCG TABLET 10 MCG PO (10:00)
--- NOTE | 2022-04-11 10:50 | OT.IP.EVAL ---
Current Diagnoses alf (current) use of anticoagulants (04/11/22) Past Medical History (Last Reviewed 04/11/22 @ 06:41 by GUALBERTO Shearer) Anticoagulated Asthma (11/04/11) Atrial flutter (03/20/17) Benign prostatic hyperplasia (11/04/11) Body mass index (BMI) of 30.0 to 39.9 (10/27/11) BPH w urinary obs/LUTS Controlled type 2 diabetes mellitus (10/03/16) Diabetes Diverticulosis of sigmoid colon (03/20/17) Elevated PSA Elevated PSA Essential hypertension (10/27/11) Family history of prostate cancer Gastroesophageal reflux disease (03/01/14) History of primary bladder cancer History of primary bladder cancer History of UTI HLD (hyperlipidemia) Hyperlipidemia (10/27/11) Hypothyroid Lower urinary tract symptoms (LUTS) Malignant neoplasm of urinary bladder (10/11/16) Melena Mild cognitive impairment Neoplasm of uncertain behavior of bladder Osteoarthritis Persistent atrial fibrillation Prostate cancer RBBB plus LA hemiblock Tubular adenoma of colon (03/20/17) Surgical History (Last Reviewed 04/11/22 @ 06:41 by GUALBERTO Shearer) History of appendectomy History of cardiac radiofrequency ablation History of cystoscopy History of knee surgery Hx of rotator cuff surgery Occupational Therapy Inpatient Evaluation/Re-Eval M1 PT/OT-IP Prior Functional Status Start: 04/11/22 12:20 Freq: NEEDED Status: Active Protocol: Document 04/11/22 11:05 [facility] (Rec: 04/11/22 12:58 [facility] [id number]) Medical Review Prior Functional Status Communication able to make needs known Mobility and Gait pt stated that he is modified independent with all mobilities and ambulation without AD but has been using a FWW for ~ 2 days due to dizziness; pt stated that spouse assists him with bed mobility needs Activities of Daily Living and IADL's Pt states his assist for his needs as needed. Social History Household Members spouse Living Arrangements House Number of Floors (Floors) Two Floors Number of Stairs To Enter/Railing? 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 [place] M2 OT-IP Current Condition Start: 04/11/22 12:32 Freq: Status: Active Protocol: Document 04/11/22 11:05 [facility] (Rec: 04/11/22 12:58 [facility] [id number]) Occupational Therapy Current Condition Current Condition Evaluation Date 04/11/22 Treatment Diagnosis Dizziness, fall Diagnosis Onset Date 04/11/22 M3 OT- IP Subjective and Pain Start: 04/11/22 12:32 Freq: Status: Active Protocol: Document 04/11/22 11:05 [facility] (Rec: 04/11/22 12:58 [facility] [id number]) OT- Subjective Occupational Therapy Visit Type Type Initial Evaluation Visit Start Time 11:05 Visit Stop Time 11:50 Total Visit Minutes 45 Occupational Therapy Visit Comments Patient Comments Pt agreed to work with OT after encouragement. Patient/Caregiver Goals To go home. OT Pain Assessment Pain When Pain Assessed At Rest Pain Present Pain Present Denied Pain M4 OT- IP ADL's Start: 04/11/22 12:32 Freq: Status: Active Protocol: Document 04/11/22 11:05 [facility] (Rec: 04/11/22 12:58 [facility] [id number]) OT [id number] Comments OT Self-Feeding Comments Not at meal time. OT ADL-Grooming General Evaluation Grooming Ability Standby Assistance Comments OT Grooming Comments Able to stand at the sink for needs with FWW. OT ADL-Oral Care General Eval Oral Care Ability Standby Assistance Areas of Assistance Retrieving/Set-Up of Items Comments Oral Care Comments assist to open packages OT ADL-Dressing General Eval Lower Body Dressing Ability Minimal Assistance Comments OT Dressing Comments Pt needing some assist to help get his legs into the brief as struggling, pt insists has a better set-up as home. OT ADL-Toileting General Evaluation Toileting Ability Standby Assistance Comments OT Toileting Comments vc to wipe with completeness. Cues to change his brief as wet. OT ADL-Bathing Comments OT Bathing Comments Not performed. M5 OT- IP IADL's Start: 04/11/22 12:32 Freq: Status: Active Protocol: Document 04/11/22 11:05 [facility] (Rec: 04/11/22 12:58 [facility] [id number]) OT-Instrumental Activities of Daily Living Home Safety Awareness Awareness of Need for Assistance at Home Good Awareness Medication Management Medication Management Caregiver Administers Money Management Money Management Caregiver Provides Assistance Meal Preparation Meal Preparation Caregiver Provides Assist Cost Report Clerk Cost Report Clerk Caregiver Provides Assist Driving Driving Caregiver Provides Assist M6 OT- IP Functional Cognition Start: 04/11/22 12:32 Freq: Status: Active Protocol: Document 04/11/22 11:05 [facility] (Rec: 04/11/22 12:58 [facility] [id number]) Cognitive Factors Limiting Selfcare Function Cognitive Ability Level of Alertness Alert Patient Orientation Name,Place,Situation Attention Span Ability Capable of Focused Attention, Capable of Sustained Attention Ability to Follow Commands Able to Follow One Step Commands Memory Description Short Term Impaired,Working Impaired Safety Awareness Underestimates Need for Assistance Executive Function Ability Unable to Filter Distractions, Unable to Organize Plans, Unable to Remember Details Cognitive Comments Cognitive Assessment Comments Pt states in the past month has had more difficulty with his cognition and that his has been assist him more for his needs. Pt not able to complete [place] [employer] Part B which implies severe impairment for visual attention, speed of processing, mental flexibility , executive functioning, and task switching. Pt states his insists that he should not drive and OT agrees. Pt needing concrete cues to follow a little hard of hearing at times. OT- Vision and Hearing OT- Hearing Assessment OT- Hearing Assessment Hearing Impaired OT- Vision Assessment Visual Acuity Glasses For Reading Visual Attentiveness WFL Occular Pursuits WFL Visual Convergence WFL Visual [place] WFL M7 OT- IP Mobility and Balance Start: 04/11/22 12:32 Freq: Status: Active Protocol: Document 04/11/22 11:05 [facility] (Rec: 04/11/22 12:58 [facility] [id number]) OT- Bed Mobility Assessment Supine to Sit Supine to Sit Assist Moderate Assistance,1 Person Assistance Sit to Supine Sit to Supine Assist Standby Assistance Scooting Scooting to Edge of Bed Standby Assistance Scooting Up and Down in Bed Standby Assistance OT-Transfer Assessment Sit to and From Stand Sit to and from Stand Standby Assistance Transfers Transfer Ability Independent Technique Transfer Destination Bed,Chair Transfer Technique Stand Step Pivot Devices Transfer Assistive Devices Gait Belt,Front Wheeled Walker Comments Mobility Comments BP sitting 112/64 and standing 113/59 and not complaining of being dizzy. Pt mainly needing MODA x1 for bed mobility needs and mainly to assist to get his trunk upright. Pt states his assists him at home for bed mobility needs. Pt is SBA with FWW and needing close sba/cga without a FWW. Pt agrees to use the FWW inside at home now . OT- Balance Assessment Sitting Balance and Reactions Static Sitting Balance Ability Good Dynamic Sitting Balance Ability Good Standing Balance and Reactions Static Standing Balance Ability Good Dynamic Standing Balance Ability Fair M8 OT- IP Objective Assessments Start: 04/11/22 12:32 Freq: Status: Active Protocol: Document 04/11/22 11:05 [facility] (Rec: 04/11/22 12:58 [facility] [id number]) OT Gross Range of Motion Upper Extremity Range of Motion Assessment Within Functional Limits OT Strength Upper Extremity Strength Assessment Within Functional Limits OT- Coordination Assessment Upper Extremity Finger to Nose Test Within Functional Limits Comments Coordination Comments Pt needing assist to open packages during grooming needs . Pt's right hand 34 sec. and left hand 38 sec on 9 hole peg test which is below 10% for his age group. OT-Muscle Tone Assessment Muscle Tone WNL Yes OT Sensation Assessment Comments Summary Comments Decreased for kinesthesia right and greater then left hand, but may also be partially due to pt having difficulty to follow the directions. M9 OT- IP Assessment and Plan Start: 04/11/22 12:32 Freq: Status: Active Protocol: Document 04/11/22 11:05 [facility] (Rec: 04/11/22 12:58 [facility] [id number]) OT Summary Assessment and Plan Potential Rehabilitation Potential Good Analytic Complexity at Evaluation Low Summary OT Impairments Balance,Functional Mobility, Dressing,Toileting,Bathing, Toilet Transfers,Shower Transfers,Activity Tolerance Progress Towards Goals Progressing Toward Goals Assessment Summary Pt low complexity and per pt feels close to his baseline and has a supportive to assist for his needs. Pt not wanting any home health services or outpt PT at this time. Pt to go home with his to assist when medically stable. Goals Self-Feeding Goal Independent Grooming Goal Independent Dressing Goal Independent Toileting Goal Independent Bathing Goal Independent Toilet Transfer Goal Independent Shower Transfer Goal Independent Days to Meet Goals 2 Frequency of Treatment Frequency Of Treatment Once a Day Treatment Plan OT Treatment Plan ADL Training,Functional Cognition Training,Functional Mobility,Patient/Family Education,Discharge Planning Other Treatment Recommendations and Next shower if pt still here Treatment Focus Discharge Recommendations OT Discharge Recommendations Home with 11/05 Assist Available Transportation Needs at Discharge Private Vehicle
--- NOTE | 2022-04-11 13:28 | CM.DANOTE ---
Addendum entered by JOANNE Henao 04/11/22 14:36: ADD: Per , pt medically stable to d/c but spouse in tears and worried pt she cannot manage him at home as he has increased falls and unsteady. LAN met bedside with pt and spouse together and provided Senior Resource Guidebook and spoke at length regarding PP CG and Assisted Living and also HH. Spouse very appreciative and plans to begin calling right away after discharge today. Spouse very appreciative of [facility] referral and aware that they have been established with Dr. Orona but doctor is now out with a brain tumor but still established at that clinic and have a new PCP appointment next week on with the new PCP they are assigned to and hopeful HH can start now but aware MAY have to wait until appointment next week. Pt and spouse agreeable with d/c home today with resources and HH referral. Sw updated MD and RN and MD signed F2F. SW called [facility] and made new HH referral and faxed clinicals, signed F2F and orders to [facility] but no d/c summary yet available. BF Original Note: Patient is a 77 yo male who was admitted on 04/11/22 today for Dizziness. Pt has [employer] and [employer] for insurance and his PCP is Devan Ramos. EMR was reviewed. Per , pt with adenocarcinoma and getting Chemo at [facility] at baseline and admitted for TIA vs CVA r/o. Echo and MRI results are normal and per pt is medically stable to d/c home today. Per PT/OT/ST, recommending safe d/c home with spouse assist. LAN met bedside with pt and explained role and he confirms he lives in [place] with his and is mostly independent at baseline with ADL's but since starting radiation for cancer he has not been able to sleep for longer than an hour at night as he has to get up every hour to use the restroom and has been feeling fatigued from lack of sleep. Pt states his niece Luz Marina who lives in [place] but works at [employer] has been staying with them 3-4 days a week for work and then goes home on her off days. Pt states his is in pretty good health and can assist if needed and they also have a small condo in [place] that they have not been too at all during COVID pandemic and have mostly stayed home the past two years due to pt's health. Pt denies any hx of HH or SNF and plans to d/c home via spouse POV today. Pt was last admitted in December 2021 this year for colonoscopy and was able to d/c home with spouse assist and no further needs. Plan: Patient to d/c home this afternoon via family POV and outpt f/u and denies any further needs at this time. JOANNE Henao Discharge Planning/Care Management CM Discharge Assessment Start: 04/11/22 13:25 Freq: Status: Active Protocol: Document 04/11/22 13:26 [facility] (Rec: 04/11/22 13:27 [facility] [id number]) Discharge Planning Assessment Assigned Chief Ultrasound Technologist JOANNE Agustin DPOA/Assigned Designee Name spouse Loli Contact Information [phone] Advance Directives? Yes Advance Directives on File Yes History Provided By Patient,Significant Other, Medical Record Has Patient been admitted in last 30 No days? Prior Living Arrangements House Household Members spouse Type of transporation used prior to Relies on Others admit Independent with ADL's Yes Is patient alert and oriented? Yes Needs Assistance With Managing Medications,Home Chores / Shopping Caregiver for Another No Comment walks on treadmill daily. Barriers to Discharge No Discharge Plan Home Transportation Arrangement Spouse Referrals Initiated None needed Whiteboard Updated in Patient Room with Yes name and ext. # of Chief Ultrasound Technologist Review Status In Process Please Provide Date Initial DC 04/11/22 Assessment Was Performed Next Review Type Continued Stay Review
--- NOTE | 2022-04-11 14:14 | PM.DS.1 ---
History of Present Illness History of Present Illness Date Patient Seen: 04/11/22 Chief complaint: Dizziness, Fall Narrative: 77-year-old gentleman with high-grade prostate cancer status post chemotherapy completion November of 2021, permanent a fib on chronic Xarelto anticoagulation, hypothyroidism, diabetes mellitus type 2, hypertension,and hyperlipidemia who presented to the emergency department after a fall at home. His reports he has had multiple falls over the past month. He has been evaluated at [facility] as well as our facility. An echocardiogram was performed at [facility] which revealed an ejection fraction of 55-60%, which was unchanged, moderately dilated right ventricle, mildly reduced RV systolic function, PA pressure of 34 which is improved compared to prior exam, moderate mitral regurgitation, mild aortic regurgitation, severely dilated left atrium, mildly dilated right atrium, moderate tricuspid regurgitation, moderate pulmonic regurgitation. Laboratory is on admission revealed a hemoglobin of 9.8 which is consistent with baseline. INR was 2.6, consistent with Xarelto anticoagulation. Electrolytes were stable. Creatinine was normal at 0.9. Chest x-ray was negative for acute cardiopulmonary process. Head CT negative for acute infarct or bleed. CTA of the head and neck revealed no acute intracranial abnormality. There is short segment occlusion or high-grade stenosis of the distal right vertebral artery, which appears similar to prior. Right carotid bulb narrowing. 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 Brain MRI revealed no acute process, no recent infarct, mild volume loss and small-vessel ischemic disease. Discharge Providers Provider Date of admission: 04/11/22 02:24 Discharge Date: 04/11/22 Primary care physician: Devan Ramos DO Consults: 04/11/22 03:24 Consult to Occupational Therapy Evaluate & Treat Comment: Physician Instructions: Evaluate and treat Consult to Physical Therapy Evaluate & Treat Comment: Physician Instructions: Evaluate and Treat Consult to Speech Therapy Evaluate & Treat Comment: Physician Instructions: Evaluate and treat Discharge provider: Sheryl Alvarado MD Summary Hospital Course Hospital Course: Patient was evaluated by PT and OT with recommendations for discharge home with assist. Orthostatic vital signs were completed in although the patient had mildly orthostatic blood pressures, he remained asymptomatic. Remained asymptomatic for the duration of his hospitalization. Patient's expressed significant anxiety over his recent increase in falls. She expresses her inability to care for him at home. Patient remains quite adamant about returning home. He is establishing with a new primary care provider on April 17. Patient is not a and has no VA benefits. Patient's believes they can afford some in-home caregiving. manager molecular has met with the patient and his spouse for discharge to provide additional reason sources, caregiving list, and information about home health to the patient and spouse. Status at Discharge Cognitive/behavioral status at discharge: at baseline, oriented Time Spent with Patient Time spent: Greater than 30 minutes Exam Vital Signs (past 8 hours): - 04/11/22 07:08 04/11/22 09:59 04/11/22 10:00 Temperature 96.7 F L Pulse Rate 78 66 70 Pulse Rate [Orthostatic Lying] Pulse Rate [Orthostatic Sitting] Pulse Rate [Orthostatic Standing] Respiratory Rate 17 Blood Pressure 136/68 127/67 127/67 Blood Pressure [Orthostatic Lying] Blood Pressure [Orthostatic Sitting] Blood Pressure [Orthostatic Standing] Pulse Oximetry 100 Oxygen Flow Rate 0 04/11/22 11:00 04/11/22 09:16 04/11/22 13:00 Temperature 96.9 F L Pulse Rate 74 Pulse Rate [Orthostatic Lying] 69 69 Pulse Rate [Orthostatic Sitting] 89 89 Pulse Rate [Orthostatic Standing] 70 70 Respiratory Rate 17 Blood Pressure 120/62 Blood Pressure [Orthostatic Lying] 125/66 125/66 Blood Pressure [Orthostatic Sitting] 116/67 116/67 Blood Pressure [Orthostatic Standing] 108/57 L 108/57 L Pulse Oximetry 97 Oxygen Flow Rate 0 Oxygen Delivery Method Room Air Oxygen Flow Rate 0 Narrative Exam Narrative: GEN: very pleasant elderly male, Alert and oriented x 3, NAD HEENT:NC, Face symmetric CHEST: Respiratory excursions symmetric, CTAB CV: irregularly irregular, rate controlled, no M/R/G ABD: Soft, NT/ND, BT present in all 4 quadrants, no organomegaly or masses EXTR: warm, well perfused, no C/C , trace to 1+ bilateral lower extremity pitting edema SKIN: warm and dry, no rash NEURO: Alert and oriented x 3, nonfocal Objective Labs Result Diagrams: 04/11/22 05:25 04/11/22 05:25 Labs: Laboratory Results - last 24 hr 04/10/22 04/10/22 04/10/22 22:54 22:54 22:54 WBC 7.9 RBC 3.55 L Hgb 9.4 L Hct 29.1 L MCV 81.8 MCH 26.5 MCHC 32.4 RDW 18.2 H Plt Count 346 Neut % (Auto) 83.0 H Lymph % (Auto) 4.8 L Villalba % (Auto) 11.1 Eos % (Auto) 0.5 L Baso % (Auto) 0.6 Neut # (Auto) 6600 Lymph # (Auto) 400 L Villalba # (Auto) 900 Eos # (Auto) 0 Baso # (Auto) 0 PT 29.4 H INR 2.6 H Sodium 134 L Potassium 3.9 Chloride 100 Carbon Dioxide 26 BUN 33 H Creatinine 0.95 Estimated GFR > 60 BUN/Creatinine Ratio 34.7 H Glucose 137 H Hemoglobin A1c Calcium 7.8 L Magnesium 1.9 Total Bilirubin 0.4 AST 17 ALT 13 Alkaline Phosphatase 52 Total Creatine Kinase 21 L CK-MB (CK-2) TNP CK-MB (CK-2) Rel Index TNP Troponin I < 0.012 Total Protein 6.5 Albumin 3.3 L Globulin 3.2 Albumin/Globulin Ratio 1.0 Triglycerides Cholesterol LDL Cholesterol, Calc HDL Cholesterol Lipase 34 SARS-CoV-2 (PCR) 04/10/22 04/11/22 04/11/22 22:54 02:28 05:25 WBC 6.1 RBC 3.69 L Hgb 9.8 L Hct 30.1 L MCV 81.6 MCH 26.5 MCHC 32.4 RDW 18.1 H Plt Count 327 Neut % (Auto) 78.8 H Lymph % (Auto) 7.2 L Villalba % (Auto) 12.8 Eos % (Auto) 0.8 L Baso % (Auto) 0.4 Neut # (Auto) 4800 Lymph # (Auto) 400 L Villalba # (Auto) 800 Eos # (Auto) 0 Baso # (Auto) 0 PT INR Sodium Potassium Chloride Carbon Dioxide BUN Creatinine Estimated GFR BUN/Creatinine Ratio Glucose Hemoglobin A1c 6.2 H Calcium Magnesium Total Bilirubin AST ALT Alkaline Phosphatase Total Creatine Kinase CK-MB (CK-2) CK-MB (CK-2) Rel Index Troponin I Total Protein Albumin Globulin Albumin/Globulin Ratio Triglycerides Cholesterol LDL Cholesterol, Calc HDL Cholesterol Lipase SARS-CoV-2 (PCR) Negative 04/11/22 05:25 WBC RBC Hgb Hct MCV MCH MCHC RDW Plt Count Neut % (Auto) Lymph % (Auto) Villalba % (Auto) Eos % (Auto) Baso % (Auto) Neut # (Auto) Lymph # (Auto) Villalba # (Auto) Eos # (Auto) Baso # (Auto) PT INR Sodium 136 L Potassium 3.5 Chloride 102 Carbon Dioxide 27 BUN 27 H Creatinine 0.90 Estimated GFR > 60 BUN/Creatinine Ratio 30.0 H Glucose 107 Hemoglobin A1c Calcium 7.9 L Magnesium 2.0 Total Bilirubin AST ALT Alkaline Phosphatase Total Creatine Kinase CK-MB (CK-2) CK-MB (CK-2) Rel Index Troponin I Total Protein Albumin Globulin Albumin/Globulin Ratio Triglycerides 76 Cholesterol 106 L LDL Cholesterol, Calc 59 HDL Cholesterol 32 L Lipase SARS-CoV-2 (PCR) [facility] Medical History Anticoagulated Asthma (11/04/11) Atrial flutter (03/20/17) Benign prostatic hyperplasia (11/04/11) Body mass index (BMI) of 30.0 to 39.9 (10/27/11) BPH w urinary obs/LUTS Controlled type 2 diabetes mellitus (10/03/16) Diabetes Diverticulosis of sigmoid colon (03/20/17) Elevated PSA Elevated PSA Essential hypertension (10/27/11) Family history of prostate cancer Gastroesophageal reflux disease (03/01/14) History of primary bladder cancer History of primary bladder cancer History of UTI HLD (hyperlipidemia) Hyperlipidemia (10/27/11) Hypothyroid Lower urinary tract symptoms (LUTS) Malignant neoplasm of urinary bladder (10/11/16) Melena Mild cognitive impairment Neoplasm of uncertain behavior of bladder Osteoarthritis Persistent atrial fibrillation Prostate cancer RBBB plus LA hemiblock Tubular adenoma of colon (03/20/17) Surgical History History of appendectomy History of cardiac radiofrequency ablation History of cystoscopy History of knee surgery Hx of rotator cuff surgery Family History Father CAD (coronary artery disease) Hyperlipidemia Hypertension Hearing impairment Mother CAD (coronary artery disease) Hypertension Hyperlipidemia Cancer Social History marital status: household members: spouse occupational status: previously employed Smoking Status: Never smoker alcohol intake: never substance use type: does not use caffeine: Yes Discharge Assessment & Plan Assessment and Plan Assessment: 1. Dizziness Patient was admitted for consideration of possible TIA or stroke. Workup was negative. Suspect his dizziness and fall are multifactorial, secondary to generalized deconditioning, possible lower extremity neuropathy, poor balance, and underlying malignancy. As he was not symptomatic with orthostatic vitals, his metoprolol has not been adjusted. Instructed him on ways to increase circulation prior to getting up from laying or sitting. Recommended calf exercises. Should he have evidence of orthostasis, I have advised he should discuss discontinuation of metoprolol with his new primary care provider. 2. Permanent atrial fib on chronic anticoagulation He remained rate controlled and stable. 3. Prostate cancer. Last treatment in November of 2021. Follow-up with oncology As scheduled Discharge Plan Discharge Plan Patient Disposition: Home Provider Discharge Comment: Follow-up with your primary care provider. If you have persistent dizziness/lightheadedness, discuss having your metoprolol discontinued. Follow-up with your oncologist as scheduled. patient will be discharged home with home health PT and OT. 37 minute spent coordinating discharge. Discharge orders & Medications Prescriptions: New Xarelto 10 mg Tablet 20 mg PO DAILY Qty: 10 0RF Continued lovastatin 40 MG tablet 40 mg PO Q DAY Qty: 90 3RF enalapril maleate 5 MG tablet 5 mg PO QDAY Qty: 90 1RF metoprolol succinate 25 mg Tablet Extended Release 24 Hr 12.5 mg PO BEDTIME levothyroxine 75 mcg Capsule 75 mcg PO DAILY tamsulosin [Flomax] 0.4 MG capsule 0.4 mg PO QPM metronidazole 500 mg Tablet 500 mg PO TID ciprofloxacin HCl [Cipro] 500 mg Tablet 500 mg PO BID Xarelto 20 mg Tablet 20 mg PO DAILY Rx Instructions: must administer with evening meal metoprolol succinate 25 mg Tablet Extended Release 24 Hr 25 mg PO DAILY Rx Instructions: 25mg AM 12.5mg pm Vitamin D3 50 mg 50 mg PO DAILY zinc Tablet,Chewable 1 tab PO DAILY omega-3 fatty acids Capsule 1,000 mg PO DAILY [employer] 40-10-5-3.3 mg Tablet 1 tab PO DAILY Rx Instructions: Karimi brand potassium chloride [K-Tab] 10 mEq tablet extended release 10 meq PO DAILY Qty: 14 0RF liothyronine 5 mcg tablet 10 mcg PO DAILY amiodarone 200 mg tablet 100 mg PO QPM finasteride 5 mg tablet 5 mg PO DAILY Qty: 90 3RF Medication counseling provided by Pharmacist: No Follow up/Referrals: Devan Ramos DO [Primary Care Provider] - Diet/Activity/Treatments Diet: Regular Activity: As tolerated Oxygen: N/A Other treatments: N/A Discharge Data Primary Care Provider: Devan Ramos Attending Provider: Stacey Mckee VTE Deep Vein Thrombosis/Pulmonary Embolism Present on Admission: No
--- NOTE | 2022-04-11 15:22 | PC.NURSE ---
Pt is A&Ox3, at times forgetful. He calls appropriately for assistance and ambulates with a steady gait. He denies any distress, pain or dizziness this morning. He demonstrates a good appetite and is cleared by PT/OT. Noted BP with slight drops during orthostatic BP assessment, MD notified however patient denies any symptoms of being dizzy and upon standing BP 108/67. He is cleared for discharge this afternoon, and arrives to transport patient home. Per requests patient is referred to HH, and provided resources from CM to help at home. Pt and verbalize understanding of discharge medications, and plan as well as acknowledge importance and agree to follow up with new PCP this week. He is escorted by w/chair to private vehicle with for discharge home with all of his belongings at 1448 today.
== END 2022-04-11 14:48 | disposition home or self-care (01) ==
LOC: ED 04-11 02:05 → AC 04-11 02:25
PROVIDERS: Admitting Provider Nurse Practitioner Family; Emergency Provider Emergency Medicine; PCP Internal Medicine Cardiovascular Disease; Referring Provider Emergency Medicine; Visit Provider Nurse Practitioner Family
DX: R42 Dizziness and giddiness (principal); R29.700 NIHSS score 0; I48.21 Permanent atrial fibrillation; C61 Malignant neoplasm of prostate; E03.9 Hypothyroidism, unspecified; E78.5 Hyperlipidemia, unspecified; W18.39XA Other fall on same level, initial encounter; Y92.002 Bathroom of unspecified non-institutional (private) residence as the place of occurrence of the external cause; Z79.01 Long term (current) use of anticoagulants; D64.9 Anemia, unspecified; Z20.822 Contact with and (suspected) exposure to COVID-19
CPT/HCPCS: 36415; 70450; 70496; 70498; 70551; 71045; 80048; 80053; 80061; 82550; 83036; 83690; 83735; 84484; 85025; 85610; 87635; 93005; 97162; 97165; 97535; 99284; C9803; G0378; Q9967

== ENCOUNTER 2022-04-17 16:43 | Observation (INO) | payer MEDICARE, SELFPAY ==
[2022-04-11 02:30] VITALS: BMI 31.6
[2022-04-17] VITALS (32 sets, daily range): BP systolic 84–164; BP diastolic 46–89; PULSE 73–89; RESP 10–26; TEMP 36.4; O2SAT 94–98; BMI 30.7
--- NOTE | 2022-04-17 16:54 | DI.CT.S_ITS ---
PROCEDURE: CT HEAD/BRAIN WO CON INDICATIONS: syncope TECHNIQUE: Noncontrast 4.5 mm thick angled axial sections acquired from the foramen magnum to the vertex, with coronal and sagittal reformats. For radiation dose reduction, the following was used: automated exposure control, adjustment of mA and/or kV according to patient size. COMPARISON: [facility], CT, CT HEAD/BRAIN WO CON, 04/10/2022, 23:32. FINDINGS: Image quality: Excellent. CSF spaces: Basal cisterns are patent. No extra-axial fluid collections. The ventricles are symmetric in size and shape. Brain: No intracranial bleeds or masses. There is cerebral volume loss for age, with resultant ventricular and sulcal prominence. There are [id number] periventricular and deep white matter chronic small vessel ischemic changes. Small old right cerebellar infarct. There is intracranial internal carotid artery atherosclerosis. There is dense bilateral vertebral artery atherosclerotic calcification. Skull and face: Calvarium and visualized facial bones appear intact, without suspicious lesions. Sinuses: Visualized sinuses and mastoids are clear. IMPRESSION: 1. ASCVD. 2. Age-related volume loss and [id number] small vessel ischemic change. 3. No evidence of acute stroke, hemorrhage, or mass. Dictated by: Paco Deleon M.D. on 04/17/2022 at 17:25 Approved by: Paco Deleon M.D. on 04/17/2022 at 17:27
--- NOTE | 2022-04-17 16:56 | DI.RAD.S_ITS ---
PROCEDURE: XR CHEST 1V INDICATIONS: chest pain TECHNIQUE: One view of the chest was acquired. COMPARISON: [facility], CR, XR CHEST 1V, 04/10/2022, 23:03. FINDINGS: Surgical changes and devices: None. Lungs and pleura: Lungs are clear. No pleural effusions or pneumothorax. Mediastinum: Mediastinal contours appear normal. Heart size is normal. Bones and chest wall: No suspicious bony lesions. Overlying soft tissues appear unremarkable. IMPRESSION: Unchanged findings. No evidence acute pulmonary process. Dictated by: Paco Deleon M.D. on 04/17/2022 at 17:41 Approved by: Paco Deleon M.D. on 04/17/2022 at 17:41
[2022-04-17] MEDS: SODIUM CHLORIDE 0.9% 1,000 ML 1000 ML IV (17:02)
[2022-04-17 17:14] LABS: Add Manual Diff / Slide Review NO; Basophils Absolute Auto 0 /uL (0-100); Basophils Percent Auto 0.2 % (0-2); Eosinophils Absolute Auto 0 /uL (0-450); Eosinophils Percent Auto 0.3 % (2-4); Hematocrit 28.2 % (41-53); Hemoglobin 9.3 g/dL (13.5-17.5); Lymphocytes Absolute Auto 300 /uL (1100-4500); Mean Corpuscular HGB Conc 32.9 % (30-36); Mean Corpuscular Hemoglobin 26.8 PG (26-34); Mean Corpuscular Volume 81.6 fL (80-100); Monocytes Absolute Auto 600 /uL (0-900); Monocytes Percent Auto 6.8 % (3-14); Neutrophils Absolute Auto 7800 /uL (1500-7000); Neutrophils Percent Auto 89.7 % (50-75); Platelet Count 341 X10^3/uL (150-400); Red Blood Cell Count 3.46 X10^6/uL (4.5-5.9); Red Cell Distribution Width 18.5 % (11.6-14.8); White Blood Cell Count 8.7 X10^3/uL (4.5-11.0)
[2022-04-17 17:29] LABS: Alanine Aminotransferase 18 IU/L (<50); Albumin 3.2 g/dL (3.5-5.0); Alkaline Phosphatase 65 U/L (38-126); Aspartate Aminotransferase 42 IU/L (17-59); BUN Creatinine Ratio 22.2 (6-22); Bilirubin Total 0.4 mg/dL (0.2-1.3); Blood Urea Nitrogen 24 mg/dL (9-20); Calcium 7.9 mg/dL (8.4-10.2); Carbon Dioxide 27 mmol/L (22-32); Chloride 100 mmol/L (98-107); Creatine Kinase 102 U/L (55-170); Estimated Glomerular Filt Rate > 60 mL/min (>60); Globulin 3.3 g/dL (1.7-4.1); Glucose 234 mg/dL (80-110); HEMOLYSIS < 15 (0-50); Lipase 29 U/L (23-300); Potassium 3.5 mmol/L (3.4-5.1); Sodium 136 mmol/L (137-145); Total Protein 6.5 g/dL (6.3-8.2)
[2022-04-17 17:44] LABS: Creatine Kinase MB 7.64 ng/mL (<2.37)
[2022-04-17 18:10] LABS: CKMB % Relative Index 7.5 % (1.5-5.0)
--- NOTE | 2022-04-17 18:30 | ED.FALL ---
HPI - Fall General Chief Complaint: Fall Stated Complaint: Hypotension Time Seen by Provider: 04/17/22 16:54 Source: patient Mode of arrival: EMS History of Present Illness HPI Narrative: Patient brought in by ambulance from home. at bedside. Patient is postop day 1 status post 6 heart stents at [facility] yesterday. Is on Xarelto. Has history of paroxysmal atrial fibrillation. Patient just got discharged today and was walking through his front door with a walker and feel very weak in both legs and fell onto the floor. Has an abrasion to the right posterior mid ribs. Denies any pain. It does not recall hitting his head. Stated weight during his fall. was present. No loss of consciousness. Troponin noted on labs. However as expected likely for multiple stents yesterday. Patient has no complaints at this time. Patient has had multiple falls prior to his admission to [facility] for heart catheterization and stents. Patient has had multiple falls in the past 2 weeks. Due to generalized leg weakness and atrophy. He has fall on top of his at 1 point. At this time states she cannot take care of him and he is in does rate need for cardiac and physical rehab. Related Data Home Medications Medication Instructions Recorded Confirmed liothyronine 5 mcg tablet 10 mcg PO DAILY 04/18/19 04/11/22 levothyroxine 75 mcg capsule 75 mcg PO DAILY 01/12/20 04/11/22 tamsulosin 0.4 mg capsule (Flomax) 0.4 mg PO QPM 10/19/20 04/11/22 amiodarone 200 mg tablet 100 mg PO QPM 12/17/21 04/11/22 metoprolol succinate 25 mg 25 mg PO DAILY 12/29/21 04/11/22 tablet,extended release 24 hr Previous Rx's Medication Instructions Recorded lovastatin 40 mg tablet 40 mg PO Q DAY #90 tabs 03/04/17 finasteride 5 mg tablet 5 mg PO DAILY #90 tabs 03/06/21 aspirin 81 mg capsule 81 mg PO DAILY #30 caps 04/18/22 enalapril maleate 5 mg tablet 5 mg PO QDAY #90 tabs 04/18/22 metoprolol succinate 25 mg 12.5 mg PO BEDTIME #30 tabs 04/18/22 tablet,extended release 24 hr Allergies Allergy/AdvReac Type Severity Reaction Status Date / Time latex Allergy Verified 03/07/22 13:07 Review of Systems Review of Systems Narrative: GENERAL: Denies chills, positive for fatigue, malaise, negative for fever, sweats. HEENT: Denies sinus pain, ear pain, sore throat RESPIRATORY: Denies dyspnea, cough CARDIOVASCULAR: Denies chest pain, palpitations GASTROINTESTINAL: Denies nausea, vomiting, abdominal pain : Denies dysuria, frequency, hematuria MUSCULOSKELETAL: denies muscle or bony pain SKIN: Denies rash, skin lesions NEUROLOGIC: Denies weakness, numbness ROS Unobtainable: All systems reviewed & are unremarkable except as noted in HPI and below Patient History Medical History Anticoagulated Asthma (11/04/11) Atrial flutter (03/20/17) Benign prostatic hyperplasia (11/04/11) Body mass index (BMI) of 30.0 to 39.9 (10/27/11) BPH w urinary obs/LUTS Controlled type 2 diabetes mellitus (10/03/16) Diabetes Diverticulosis of sigmoid colon (03/20/17) Elevated PSA Elevated PSA Essential hypertension (10/27/11) Family history of prostate cancer Gastroesophageal reflux disease (03/01/14) History of primary bladder cancer History of primary bladder cancer History of UTI HLD (hyperlipidemia) Hyperlipidemia (10/27/11) Hypothyroid Lower urinary tract symptoms (LUTS) Malignant neoplasm of urinary bladder (10/11/16) Melena Mild cognitive impairment Neoplasm of uncertain behavior of bladder Osteoarthritis Persistent atrial fibrillation Prostate cancer RBBB plus LA hemiblock Tubular adenoma of colon (03/20/17) Surgical History History of appendectomy History of cardiac radiofrequency ablation History of cystoscopy History of knee surgery Hx of rotator cuff surgery Family History Father CAD (coronary artery disease) Hyperlipidemia Hypertension Hearing impairment Mother CAD (coronary artery disease) Hypertension Hyperlipidemia Cancer Social History marital status: household members: spouse occupational status: previously employed Smoking Status: Never smoker alcohol intake: never substance use type: does not use caffeine: Yes Smoking Status: Never smoker alcohol intake frequency: other Substance Use Type: does not use Exam Narrative Exam Narrative: GENERAL: in no distress, not toxic not dyspneic HEAD: Normocephalic. Nontender head scalp face. EYES: Pupils equal round No scleral icterus. ENT: Mucous membranes moist. NECK: Trachea midline. No midline tenderness of the cervical thoracic and lumbar spine CARDIOVASCULAR: Irregular irregular rate and rhythm RESPIRATORY: Clear to auscultation. Breath sounds equal bilaterally. No wheezes, rales, or rhonchi. GASTROINTESTINAL: Abdomen soft, non-tender EXTREMITIES: No gross deformities. BACK: No flank tenderness. Small abrasion to the right mid posterior ribs nontender no crepitus or flail. NEURO: AOx4. Clear speech no facial droop light touch intact bilateral face hands and legs. 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 Able to elevate each leg without any difficulty. SKIN: Warm and dry PSYCH: Not anxious, is cooperative Initial Vital Signs Initial Vital Signs: Vital Signs Temperature 97.6 F 04/17/22 16:46 Pulse Rate 89 04/17/22 16:46 Respiratory Rate 26 H 04/17/22 16:46 Blood Pressure 98/54 L 04/17/22 16:46 Pulse Oximetry 96 04/17/22 16:46 Oxygen Delivery Method 04/17/22 16:46 Course Course Course Narrative: No new issues during course of stay Decision to Admit Date: 04/17/22 Decision to Admit time: 18:34 Orders Ordered: Discontinued Medications Acetaminophen (Acetaminophen 325 Mg Tablet) 650 mg PO Q6HR PRN PRN Reason: Fever/Mild Pain (1-3) Atorvastatin Calcium (Atorvastatin 20 Mg Tablet) 10 mg PO BEDTIME [facility] Enalapril Maleate (Enalapril 5 Mg Tablet) 5 mg PO DAILY [facility] Last Admin: 04/18/22 09:43 Dose: 5 mg Documented By: NAIN Finasteride (Finasteride 5 Mg Tablet) 5 mg PO DAILY [facility] Last Admin: 04/18/22 09:43 Dose: 5 mg Documented By: NAIN Sodium Chloride (Normal Saline 0.9%) 1,000 mls @ 1,000 mls/hr IV CONT [facility] Last Infusion: 04/17/22 19:45 Dose: 0 mls/hr Documented By: Admin: 04/17/22 17:02 Dose: 1,000 mls/hr Documented By: LEROY Sodium Chloride (Normal Saline 0.9%) 1,000 mls @ 60 mls/hr IV CONT [facility] Last Admin: 04/18/22 02:25 Dose: 60 mls/hr Documented By: DENYS Levothyroxine Sodium (Levothyroxine 75 Mcg Tablet) 75 mcg PO 0600 [facility] Last Admin: 04/18/22 06:53 Dose: 75 mcg Documented By: DENYS Liothyronine Sodium (Liothyronine 5 Mcg Tablet) 10 mcg PO 0600 [facility] Last Admin: 04/18/22 06:53 Dose: 10 mcg Documented By: DENYS Magnesium Chloride (Magnesium Chloride 64 Mg Tablet) 128 mg PO NOW ONE Stop: 04/18/22 08:31 Last Admin: 04/18/22 09:42 Dose: 128 mg Documented By: NAIN Methocarbamol (Methocarbamol 500 Mg Tablet) 500 mg PO Q8H PRN PRN Reason: Muscle Pain Metoprolol Succinate (Metoprolol Er 25 Mg Tablet) 12.5 mg PO BEDTIME [facility] Metoprolol Succinate (Metoprolol Er 25 Mg Tablet) 25 mg PO DAILY [facility] Last Admin: 04/18/22 09:43 Dose: 25 mg Documented By: NAIN Non-Formulary Medication (Lovastatin) 40 mg PO Q DAY [facility] Ondansetron HCl (Ondansetron 4 Mg Odt) 4 mg PO Q8HR PRN PRN Reason: Nausea And Vomiting Potassium Chloride (Potassium Chloride 20 Meq Tab) 40 meq PO Q6H [facility] Stop: 04/18/22 15:01 Last Admin: 04/18/22 15:00 Dose: Not Given Documented By: Admin: 04/18/22 09:50 Dose: 40 meq Documented By: NAIN Rivaroxaban (Rivaroxaban 10 Mg Tablet) 20 mg PO DAILY [facility] Last Admin: 04/18/22 09:42 Dose: 20 mg Documented By: NAIN Rivaroxaban (Rivaroxaban 10 Mg Tablet) 20 mg PO DAILY [facility] Tamsulosin HCl (Tamsulosin 0.4 Mg Capsule) 0.4 mg PO QPM [facility] Tramadol HCl (Tramadol 50 Mg Tablet) 100 mg PO Q4H PRN PRN Reason: Pain, Severe (7-10) Stop: 04/21/22 01:43 Reevaluation(s) Reevaluation #1: Patient and agree for admit here. They understand there are no beds anywhere else. Time: 23:40 Consultations Consultation #1: Spoke with [facility] Dr. Juárez, the patient could be managed here. Troponin is appropriately elevated after stents yesterday. Needs to hold on Lasix and spironolactone or any diuretics. Continue Plavix and aspirin. There are no beds at [place]. Time: 21:17 Consultation #2: Spoke with cardiology, Dr. Tatum, agrees patient can be managed here. Agrees with [facility] treatment plan as well Time: :40 Consultation #3: Spoke with hospitalist, Toya, will admit Time: 23:41 Vital Signs Vital signs: Vital Signs - 8 hr 04/17/22 18:00 04/17/22 18:00 04/17/22 18:15 Pulse Rate 75 82 Respiratory Rate 17 17 Blood Pressure 90/54 L Pulse Oximetry 96 96 04/17/22 18:15 04/17/22 18:30 04/17/22 18:30 Pulse Rate 75 Respiratory Rate 17 17 Blood Pressure 98/54 L 84/46 L Pulse Oximetry 97 04/17/22 18:45 04/17/22 18:45 04/17/22 19:00 Pulse Rate 79 Respiratory Rate 20 Blood Pressure 102/59 L 104/55 L Pulse Oximetry 96 04/17/22 19:00 04/17/22 19:15 04/17/22 19:15 Pulse Rate 79 77 Respiratory Rate 24 24 Blood Pressure 103/52 L Pulse Oximetry 95 94 04/17/22 19:30 04/17/22 19:30 04/17/22 19:45 Pulse Rate 75 78 Respiratory Rate 24 24 Blood Pressure 103/58 L Pulse Oximetry 95 96 04/17/22 19:45 04/17/22 20:00 04/17/22 20:00 Pulse Rate 75 Respiratory Rate 19 Blood Pressure 104/58 L 111/55 L Pulse Oximetry 96 04/17/22 20:15 04/17/22 20:15 04/17/22 20:30 Pulse Rate 75 Respiratory Rate 21 Blood Pressure 106/56 L 111/58 L Pulse Oximetry 97 04/17/22 20:30 04/17/22 20:50 04/17/22 20:50 Pulse Rate 79 89 Respiratory Rate 24 26 H Blood Pressure 137/74 Pulse Oximetry 97 98 04/17/22 21:00 04/17/22 21:00 04/17/22 21:15 Pulse Rate 78 Respiratory Rate 18 Blood Pressure 148/71 H 145/66 H Pulse Oximetry 98 04/17/22 21:15 04/17/22 21:30 04/17/22 21:30 Pulse Rate 79 84 Respiratory Rate 15 24 Blood Pressure 141/72 H Pulse Oximetry 97 96 04/17/22 21:45 04/17/22 21:45 04/17/22 22:00 Pulse Rate 73 78 Respiratory Rate 21 21 Blood Pressure 135/65 Pulse Oximetry 96 95 04/17/22 22:01 04/17/22 22:01 04/17/22 22:16 Pulse Rate 76 79 Respiratory Rate 26 H 19 Blood Pressure 118/54 L Pulse Oximetry 95 96 04/17/22 22:16 04/17/22 22:30 04/17/22 22:30 Pulse Rate 78 Respiratory Rate 21 Blood Pressure 149/65 H 150/67 H Pulse Oximetry 98 04/17/22 22:45 04/17/22 22:45 04/17/22 23:00 Pulse Rate 81 Respiratory Rate 16 Blood Pressure 137/66 157/89 H Pulse Oximetry 97 04/17/22 23:00 04/17/22 23:15 04/17/22 23:15 Pulse Rate 79 81 Respiratory Rate 18 22 Blood Pressure 152/70 H Pulse Oximetry 97 96 04/17/22 23:30 04/17/22 23:30 Pulse Rate 81 Respiratory Rate 22 Blood Pressure 164/80 H Pulse Oximetry 97 MDM - Fall Differential Diagnosis Differential diagnosis: Likely other (Failure to thrive/hypotension/abrasion/contusion) Lab Data Result diagrams: 04/18/22 06:41 04/18/22 06:41 Labs: Lab Results 04/17/22 04/17/22 04/17/22 Range/Units 17:06 17:06 17:06 WBC 8.7 (4.5-11.0) X10^3/uL RBC 3.46 L (4.5-5.9) X10^6/uL Hgb 9.3 L (13.5-17.5) g/dL Hct 28.2 L (41-53) % MCV 81.6 (80-100) fL MCH 26.8 (26-34) PG MCHC 32.9 (30-36) % RDW 18.5 H (11.6-14.8) % Plt Count 341 (150-400) X10^3/uL Neut % (Auto) 89.7 H (50-75) % Lymph % (Auto) 3.0 L (25-40) % [place] % (Auto) 6.8 (3-14) % Eos % (Auto) 0.3 L (2-4) % Baso % (Auto) 0.2 (0-2) % Neut # (Auto) 7800 H (1865-1406) /uL Lymph # (Auto) 300 L (7606-8472) /uL [place] # (Auto) 600 (0-900) /uL Eos # (Auto) 0 (0-450) /uL Baso # (Auto) 0 (0-100) /uL PT (10.1-12.7) SECONDS INR (0.9-1.3) APTT (26.4-36.2) SECONDS Sodium 136 L (137-145) mmol/L Potassium 3.5 (3.4-5.1) mmol/L Chloride 100 (98-107) mmol/L Carbon Dioxide 27 (22-32) mmol/L BUN 24 H (9-20) mg/dL Creatinine 1.08 (0.66-1.25) mg/dL Estimated GFR > 60 (>60) mL/min BUN/Creatinine Ratio 22.2 H (6-22) Glucose 234 H D (80-110) mg/dL Calcium 7.9 L (8.4-10.2) mg/dL Magnesium 1.6 (1.6-2.3) mg/dL Total Bilirubin 0.4 (0.2-1.3) mg/dL AST 42 (17-59) IU/L ALT 18 (<50) IU/L Alkaline Phosphatase 65 (38-126) U/L Total Creatine Kinase 102 (55-170) U/L CK-MB (CK-2) 7.64 H (<2.37) ng/mL CK-MB (CK-2) Rel Index 7.5 H* (1.5-5.0) % Troponin I 3.180 H* (0.01-0.034) ng/mL Total Protein 6.5 (6.3-8.2) g/dL Albumin 3.2 L (3.5-5.0) g/dL Globulin 3.3 (1.7-4.1) g/dL Albumin/Globulin Ratio 1.0 (1.0-2.8) Lipase 29 (23-300) U/L SARS-CoV-2 (PCR) (Negative) 04/17/22 04/17/22 Range/Units 18:35 19:04 WBC (4.5-11.0) X10^3/uL RBC (4.5-5.9) X10^6/uL Hgb (13.5-17.5) g/dL Hct (41-53) % MCV (80-100) fL MCH (26-34) PG MCHC (30-36) % RDW (11.6-14.8) % Plt Count (150-400) X10^3/uL Neut % (Auto) (50-75) % Lymph % (Auto) (25-40) % [place] % (Auto) (3-14) % Eos % (Auto) (2-4) % Baso % (Auto) (0-2) % Neut # (Auto) (5605-9442) /uL Lymph # (Auto) (3244-2568) /uL [place] # (Auto) (0-900) /uL Eos # (Auto) (0-450) /uL Baso # (Auto) (0-100) /uL PT 16.8 H D (10.1-12.7) SECONDS INR 1.5 H (0.9-1.3) APTT 31 D (26.4-36.2) SECONDS Sodium (137-145) mmol/L Potassium (3.4-5.1) mmol/L Chloride (98-107) mmol/L Carbon Dioxide (22-32) mmol/L BUN (9-20) mg/dL Creatinine (0.66-1.25) mg/dL Estimated GFR (>60) mL/min BUN/Creatinine Ratio (6-22) Glucose (80-110) mg/dL Calcium (8.4-10.2) mg/dL Magnesium (1.6-2.3) mg/dL Total Bilirubin (0.2-1.3) mg/dL AST (17-59) IU/L ALT (<50) IU/L Alkaline Phosphatase (38-126) U/L Total Creatine Kinase (55-170) U/L CK-MB (CK-2) (<2.37) ng/mL CK-MB (CK-2) Rel Index (1.5-5.0) % Troponin I (0.01-0.034) ng/mL Total Protein (6.3-8.2) g/dL Albumin (3.5-5.0) g/dL Globulin (1.7-4.1) g/dL Albumin/Globulin Ratio (1.0-2.8) Lipase (23-300) U/L SARS-CoV-2 (PCR) Negative (Negative) Imaging Data CT scan - head: Radiologist's Impression: [address] [address] [address] Scan Report Signed Patient: Leandro Allen MR#: [id number] : 1945 Acct:[id number] Age/Sex: 77 / M Date of Service: 04/17/22 Loc: ED Accession Number: [id number] ?? Procedure: CT head/brain wo con Ordering Provider: Tashia Mcduffie D.O. PROCEDURE:? CT HEAD/BRAIN WO CON ? INDICATIONS:? syncope ? TECHNIQUE:? Noncontrast 4.5 mm thick angled axial sections acquired from the foramen magnum to the vertex, with coronal and sagittal reformats.? For radiation dose reduction, the following was used:? automated exposure control, adjustment of mA and/or kV according to patient size.? ? COMPARISON:? , CT, CT HEAD/BRAIN WO CON, 04/10/2022, 23:32. ? FINDINGS:? Image quality:? Excellent.? ? CSF spaces:? Basal cisterns are patent.? No extra-axial fluid collections.? The ventricles are symmetric in size and shape.? ? Brain:? No intracranial bleeds or masses.? There is cerebral volume loss for age, with resultant ventricular and sulcal prominence.? There are [id number] periventricular and deep white matter chronic small vessel ischemic changes.? Small old right cerebellar infarct.? There is intracranial internal carotid artery atherosclerosis.? There is dense bilateral vertebral artery atherosclerotic calcification. ? Skull and face:? Calvarium and visualized facial bones appear intact, without suspicious lesions.? ? Sinuses:? Visualized sinuses and mastoids are clear.? ? IMPRESSION:? ? 1. ASCVD. ? 2. Age-related volume loss and [id number] small vessel ischemic change. ? 3. No evidence of acute stroke, hemorrhage, or mass.? ? ? Dictated by: Paco Deleon M.D. on 04/17/2022 at 17:25 ? ? Approved by: Paco Deleon M.D. on 04/17/2022 at 17:27 ? Chest x-ray: Radiologist's Impression: [address] [address] XRay Report Signed Patient: Leandro Allen MR#: [id number] : 1945 Acct:[id number] Age/Sex: 77 / M Date of Service: 04/17/22 Loc: ED Accession Number: [id number] ?? Procedure: XR chest 1V Ordering Provider: Tashia Mcduffie D.O. PROCEDURE:? XR CHEST 1V ? INDICATIONS:? chest pain ? TECHNIQUE:? One view of the chest was acquired.? ? COMPARISON:? , CR, XR CHEST 1V, 04/10/2022, 23:03. ? FINDINGS:? ? Surgical changes and devices:? None.? ? Lungs and pleura:? Lungs are clear.? No pleural effusions or pneumothorax.? ? Mediastinum:? Mediastinal contours appear normal.? Heart size is normal.? ? Bones and chest wall:? No suspicious bony lesions.? Overlying soft tissues appear unremarkable.? ? IMPRESSION:? Unchanged findings. No evidence acute pulmonary process. ? ? ? Dictated by: Paco Deleon M.D. on 04/17/2022 at 17:41 ? ? Approved by: Paco Deleon M.D. on 04/17/2022 at 17:41 ? ECG Data Interpretation: Future fibrillation rate 78. No ST elevation. Right bundle-branch block. MDM Narrative Medical decision making narrative: Appropriate for admission as patient will need physical therapy evaluation as well as case management evaluation for [facility] physical rehab cardiac rehab. Patient and desire this plan. Reviewed with Cardiology as well as hospitalist as well. Discharge Plan Departure Patient Disposition: Admitted As Inpatient Clinical Impression: Dizziness Admit Date/Time: 04/17/22 23:39 Admit Provider: Toya Martel
[2022-04-17 18:59] LABS: COVID19 -Nasal RAPID Negative (Negative)
[2022-04-17 19:08] LABS: INR 1.5 (0.9-1.3); Prothrombin Time 16.8 SECONDS (10.1-12.7)
[2022-04-17 19:10] LABS: PTT Partial Thromboplastin Tim 31 SECONDS (26.4-36.2)
[2022-04-18] VITALS (14 sets, daily range): BP systolic 103–139; BP diastolic 56–73; PULSE 75–90; RESP 14–24; TEMP 36.1–36.6; O2SAT 90–99; BMI 30.7
[2022-04-18 02:22] LABS: Magnesium 1.6 mg/dL (1.6-2.3)
[2022-04-18] MEDS: SODIUM CHLORIDE 0.9% 1,000 ML 60 ML IV (02:25)
--- NOTE | 2022-04-18 02:48 | PC.NURSE ---
Unable to complete med rec, pt says does his meds and he takes them all but not sure when. Cant remember if he took them yesterday.
[2022-04-18] MEDS: LIOTHYRONINE 5 MCG TABLET 10 MCG PO (06:53)
[2022-04-18] MEDS: LEVOTHYROXINE 75 MCG TABLET PO (06:53)
[2022-04-18 07:04] LABS: Appearance Urine UA CLEAR; Bilirubin Urine UA NEGATIVE (NEGATIVE); Color Urine UA YELLOW; Glucose Urine UA NEGATIVE (Negative); Ketones Urine UA NEGATIVE (NEGATIVE); Leukocyte Esterase Urine UA NEGATIVE (NEGATIVE); Nitrite Urine UA NEGATIVE (Negative); Occult Blood Urine UA NEGATIVE (Negative); Protein Urine UA 1+ (Negative); Specific Gravity Urine UA 1.025 (1.000-1.035); Urobilinogen Urine UA 0.2 E.U./dL (0.2)
[2022-04-18 07:09] LABS: Add Manual Diff / Slide Review NO; Basophils Absolute Auto 0 /uL (0-100); Basophils Percent Auto 0.5 % (0-2); Eosinophils Absolute Auto 100 /uL (0-450); Eosinophils Percent Auto 0.8 % (2-4); Hemoglobin 9.5 g/dL (13.5-17.5); Lymphocytes Absolute Auto 400 /uL (1100-4500); Lymphocytes Percent Auto 5.4 % (25-40); Mean Corpuscular HGB Conc 32.9 % (30-36); Mean Corpuscular Hemoglobin 26.9 PG (26-34); Mean Corpuscular Volume 81.8 fL (80-100); Monocytes Absolute Auto 700 /uL (0-900); Monocytes Percent Auto 9.7 % (3-14); Neutrophils Absolute Auto 5800 /uL (1500-7000); Neutrophils Percent Auto 83.6 % (50-75); Platelet Count 307 X10^3/uL (150-400); Red Blood Cell Count 3.54 X10^6/uL (4.5-5.9); Red Cell Distribution Width 18.4 % (11.6-14.8); White Blood Cell Count 6.9 X10^3/uL (4.5-11.0)
[2022-04-18 07:22] LABS: Alanine Aminotransferase 16 IU/L (<50); Albumin 3.2 g/dL (3.5-5.0); Alkaline Phosphatase 59 U/L (38-126); Aspartate Aminotransferase 30 IU/L (17-59); BUN Creatinine Ratio 24.4 (6-22); Bilirubin Total 0.4 mg/dL (0.2-1.3); Blood Urea Nitrogen 22 mg/dL (9-20); Calcium 7.8 mg/dL (8.4-10.2); Carbon Dioxide 27 mmol/L (22-32); Chloride 104 mmol/L (98-107); Estimated Glomerular Filt Rate > 60 mL/min (>60); Globulin 3.3 g/dL (1.7-4.1); Glucose 111 mg/dL (80-110); HEMOLYSIS < 15 (0-50); Potassium 3.3 mmol/L (3.4-5.1); Sodium 138 mmol/L (137-145); Total Protein 6.5 g/dL (6.3-8.2)
[2022-04-18 07:25] LABS: Bacteria Urine Moderate (10-30); Culture Indicated Urine Cult Not Indicated; Mucus Urine 1+ (Negative); RBC Urine 0-1/HPF (0-5/HPF); Squamous Epithelial Cell Urine 0-1 /HPF (0-5/HPF); WBC Urine 1-5/HPF (0-5/HPF)
--- NOTE | 2022-04-18 09:40 | PT.IIE ---
Surgical History (Last Reviewed 04/17/22 @ 18:32 by Bryan Harrell MD) History of appendectomy History of cardiac radiofrequency ablation History of cystoscopy History of knee surgery Hx of rotator cuff surgery Medical History (Last Reviewed 04/17/22 @ 18:32 by Bryan Harrell MD) Anticoagulated Asthma (11/04/11) Atrial flutter (03/20/17) Benign prostatic hyperplasia (11/04/11) Body mass index (BMI) of 30.0 to 39.9 (10/27/11) BPH w urinary obs/LUTS Controlled type 2 diabetes mellitus (10/03/16) Diabetes Diverticulosis of sigmoid colon (03/20/17) Elevated PSA Elevated PSA Essential hypertension (10/27/11) Family history of prostate cancer Gastroesophageal reflux disease (03/01/14) History of primary bladder cancer History of primary bladder cancer History of UTI HLD (hyperlipidemia) Hyperlipidemia (10/27/11) Hypothyroid Lower urinary tract symptoms (LUTS) Malignant neoplasm of urinary bladder (10/11/16) Melena Mild cognitive impairment Neoplasm of uncertain behavior of bladder Osteoarthritis Persistent atrial fibrillation Prostate cancer RBBB plus LA hemiblock Tubular adenoma of colon (03/20/17) Physical Therapy Inpatient Evaluation/Re-Eval M1 PT/OT-IP Prior Functional Status Start: 04/18/22 12:45 Freq: NEEDED Status: Active Protocol: Document 04/18/22 09:40 AB (Rec: 04/18/22 12:57 AB [id number]) Medical Review Prior Functional Status Medical History Reviewed Yes Communication able to make needs known Mobility and Gait pt stated that he is modified independent with all mobilities and ambulation without AD but has been using a FWW for the last 2 weeks due to weakness; has recent cardiac catheterization and 6 stents placements just a few days ago Social History Household Members spouse Living Arrangements House Number of Floors (Floors) Two Floors Number of Stairs To Enter/Railing? pt stays on main level of the house no steps to enter Home Environment Standard Height Toilet,Walk in Shower,Tub/Shower,Built-In Shower Seat Home Equipment Front Wheel Walker,Hand Held Shower,Grab Bars In Shower M2 PT-IP Current Condition Start: 04/18/22 12:45 Freq: NEEDED Status: Active Protocol: Document 04/18/22 09:40 AB (Rec: 04/18/22 12:57 AB [id number]) Physical Therapy Current Condition Current Condition Evaluation Date 04/18/22 Treatment Diagnosis hypotension; difficulty in walking Onset Date 04/17/22 M3 PT-IP Subjective Start: 04/18/22 12:45 Freq: NEEDED Status: Active Protocol: Document 04/18/22 09:40 AB (Rec: 04/18/22 12:57 AB [id number]) Subjective Physical Therapy Visit Type Type Initial Evaluation Visit Start Time 09:40 Visit Stop Time 10:25 Total Visit Minutes 45 Number of TONG SETTER Visits 0 Physical Therapy Visit Comments Patient Comments agreeable to do PT Therapy Pain Assessment Pain Present Pain Present Denied Pain M4 PT-IP Mobility and Gait Start: 04/18/22 12:45 Freq: NEEDED Status: Active Protocol: Document 04/18/22 09:40 AB (Rec: 04/18/22 12:57 AB [id number]) PT-Bed Mobility Assessment Supine to Sit Supine to Sit Standby Assistance Sit to Supine Sit to Supine Standby Assistance PT-Transfer Assessment Sit to and From Stand Sit to and from Stand Standby Assistance,1 Person Assistance,Use of Upper Extremities Equipment Transfer Assistive Device Gait Belt,Front Wheeled Walker Orthotic/Prosthetic Devices or Brace: No Comments Mobility Comments pt sitting on EOB. agreed to do PT. BP sittin/57. completed sit to stand CGA. BP checked: 91/47. c/o slight dizziness. pt tolerated 2 more minutes of standing. BP checked again: 99/54. pt ambulated in room using FWW ~ 30 ft SBA to CGA. assessed ambulation without AD ~ 20 ft CGA. presents with unsteady antalgic gait. BP after ambulation sitting on EOB: 103 /56. pt requested to go back to bed and completed sit to supine SBA. educated pt on safety and use of FWW for safety at this time. pt agreed . positioned pt in bed. call ilght and table placed within reach. Gait Assessment Gait Gait Assistance Required: Standby Assistance,Contact Guard Assist,1 Person Assist Distance (Feet) 30 Able to Maintain Weight Bearing Status Yes During Gait Assistive Devices Assistive Device None,Gait Belt,Front Wheeled Walker Orthotic/Prosthetic Devices or Brace: No Gait Deviations General Gait Pattern Ataxic,Decreased Stride Length ,Decreased Feet Clearance,Step -to Gait,Wide Based Gait Factors Limiting Gait Function Factors Limiting Gait Function Decreased Activity Tolerance, Decreased Strength,Pain,Poor Balance,Poor Safety Awareness PT-Balance Assessment Sitting Balance and Reactions Static Sitting Balance Ability Good Dynamic Sitting Balance Ability Good Standing Balance and Reactions Static Standing Balance Ability Fair Dynamic Standing Balance Ability Poor Device Used without AD M5 PT-IP Objective Assessments Start: 04/18/22 12:45 Freq: NEEDED Status: Active Protocol: Document 04/18/22 09:40 AB (Rec: 04/18/22 12:57 AB [id number]) Orientation Orientation/Cognition Level of Alertness Alert Orientation Name,Place,Situation Language Function Ability No Deficits Noted Safety Awareness Decreased Safety Awareness Gross Range of Motion Lower Extremity ROM Assessment Within Functional Limits Strength Lower Extremity Strength Hip 4-/5 Coordination Assessment Gross Coordination Gross Coordination WNL Sensation Assessment Sensation Gross Sensation WNL Muscle Tone Muscle Tone WNL Yes M6 PT-IP Treatment Start: 04/18/22 12:45 Freq: NEEDED Status: Active Protocol: Document 04/18/22 09:40 AB (Rec: 04/18/22 12:57 AB [id number]) Physical Therapy Treatment Education Education Provided Safety M7 PT-IP Assessment and Plan Start: 04/18/22 12:45 Freq: NEEDED Status: Active Protocol: Document 04/18/22 09:40 AB (Rec: 04/18/22 12:57 AB [id number]) PT Summary Assessment and Plan Potential Rehabilitation Potential Fair Status of Condition at Evaluation Evolving Summary Impairments Pain,ROM,Strength,Balance, Coordination,Sensation,Tone, Cognition,Bed Mobility, Transfers,Gait,Activity Tolerance Assessment Summary pt requiring SBA to CGA with mobility but presents with decrease activity with low BP. will continue to assess progress and will conduct caregiver training when appropriate. pt stated that his spouse will be able to assist him if needed. pt will require HHPT. Goals Bed Mobility Goal Independent Transfer Goal Independent,Front Wheeled Walker Gait Goal Independent,Front Wheel Walker Gait Distance 200 Other Goals improve ambulation without AD ~ 200 ft SBA Frequency of Treatment Frequency Of Treatment Once a Day Treatment Plan Physical Therapy Treatment Plan Bed Mobility Training,Transfer Training,Gait Training, Therapeutic Exercise,Balance Retraining,Post Op Education, Discharge Planning,Hot or Cold Pack,Neuromuscular Re-ed, Coordination Retraining,Manual Therapy Recommendations To Nursing Amount of Assist Needed 1 Person Assist Discharge Recommendations PT Discharge Recommendations Home with Assistance,Home Health Transportation Needs at Discharge Private Vehicle
[2022-04-18] MEDS: MAGNESIUM CHLORIDE 64 MG TABLET 128 MG PO (09:42)
[2022-04-18] MEDS: RIVAROXABAN 10 MG TABLET 20 MG PO (09:42)
[2022-04-18] MEDS: METOPROLOL ER 25 MG TABLET PO (09:43)
[2022-04-18] MEDS: ENALAPRIL 5 MG TABLET PO (09:43)
[2022-04-18] MEDS: FINASTERIDE 5 MG TABLET PO (09:43)
[2022-04-18] MEDS: POTASSIUM CHLORIDE 20 MEQ TAB 40 MEQ PO (09:50)
--- NOTE | 2022-04-18 11:14 | OT.IP.EVAL ---
Past Medical History (Last Reviewed 04/17/22 @ 18:32 by Bryan Harrell MD) Anticoagulated Asthma (11/04/11) Atrial flutter (03/20/17) Benign prostatic hyperplasia (11/04/11) Body mass index (BMI) of 30.0 to 39.9 (10/27/11) BPH w urinary obs/LUTS Controlled type 2 diabetes mellitus (10/03/16) Diabetes Diverticulosis of sigmoid colon (03/20/17) Elevated PSA Elevated PSA Essential hypertension (10/27/11) Family history of prostate cancer Gastroesophageal reflux disease (03/01/14) History of primary bladder cancer History of primary bladder cancer History of UTI HLD (hyperlipidemia) Hyperlipidemia (10/27/11) Hypothyroid Lower urinary tract symptoms (LUTS) Malignant neoplasm of urinary bladder (10/11/16) Melena Mild cognitive impairment Neoplasm of uncertain behavior of bladder Osteoarthritis Persistent atrial fibrillation Prostate cancer RBBB plus LA hemiblock Tubular adenoma of colon (03/20/17) Surgical History (Last Reviewed 04/17/22 @ 18:32 by Bryan Harrell MD) History of appendectomy History of cardiac radiofrequency ablation History of cystoscopy History of knee surgery Hx of rotator cuff surgery Occupational Therapy Inpatient Evaluation/Re-Eval M2 OT-IP Current Condition Start: 04/18/22 12:24 Freq: Status: Active Protocol: Document 04/18/22 11:14 [facility] (Rec: 04/18/22 12:46 [facility] [id number]) Occupational Therapy Current Condition Current Condition Evaluation Date 04/18/22 Treatment Diagnosis fall, s/p 6 heart stents on Diagnosis Onset Date 04/17/22 M3 OT- IP Subjective and Pain Start: 04/18/22 12:24 Freq: Status: Active Protocol: Document 04/18/22 11:14 [facility] (Rec: 04/18/22 12:46 [facility] [id number]) OT- Subjective Occupational Therapy Visit Type Type Initial Evaluation Visit Start Time 10:30 Visit Stop Time 11:14 Total Visit Minutes 44 Occupational Therapy Visit Comments Patient Comments Pt needing lots of encouragement to participate in therapy initially and then agreed to get up to use the bathroom. Patient/Caregiver Goals Pt agreed would be best to go to skilled rehab. OT Pain Assessment Pain When Pain Assessed At Rest Pain Present Pain Present Denied Pain M4 OT- IP ADL's Start: 04/18/22 12:24 Freq: Status: Active Protocol: Document 04/18/22 11:14 [facility] (Rec: 04/18/22 12:46 [facility] [id number]) OT [id number] Comments OT Self-Feeding Comments NOt at meal time. OT ADL-Grooming General Evaluation Grooming Ability Standby Assistance Comments OT Grooming Comments sba while standing in front of the sink with FWW. OT ADL-Oral Care General Eval Oral Care Ability Independent OT ADL-Dressing General Eval Lower Body Dressing Ability Maximum Assistance Comments OT Dressing Comments At this time needing assist for LB dressing needs. OT ADL-Toileting General Evaluation Toileting Ability Standby Assistance Comments OT Toileting Comments Pt insistent on doing it himself and wanting the door closed. OT ADL-Bathing Comments OT Bathing Comments NOt performed. M6 OT- IP Functional Cognition Start: 04/18/22 12:24 Freq: Status: Active Protocol: Document 04/18/22 11:14 [facility] (Rec: 04/18/22 12:46 [facility] [id number]) Cognitive Factors Limiting Selfcare Function Cognitive Ability Level of Alertness Alert Patient Orientation Name,Place,Situation Attention Span Ability Capable of Focused Attention, Capable of Sustained Attention Ability to Follow Commands Able to Follow One Step Commands Safety Awareness Underestimates Need for Assistance Cognitive Comments Cognitive Assessment Comments Pt able to follow commands. Pt a bit hard of hearing and at times insistent on his own care. Pt states his assist him with the medications and that he assist with the bills. OT- Vision and Hearing OT- Hearing Assessment OT- Hearing Assessment Hearing Impaired,Use of Hearing Aids OT- Vision Assessment Visual Acuity Glasses For Reading M7 OT- IP Mobility and Balance Start: 04/18/22 12:24 Freq: Status: Active Protocol: Document 04/18/22 11:14 [facility] (Rec: 04/18/22 12:46 [facility] [id number]) OT- Bed Mobility Assessment Supine to Sit Supine to Sit Assist Moderate Assistance,1 Person Assistance,Head of Bed Elevated OT-Transfer Assessment Sit to and From Stand Sit to and from Stand Standby Assistance,Contact Guard Assistance Transfers Transfer Ability Standby Assistance Technique Transfer Destination Chair,Toilet Transfer Technique Stand Step Pivot Devices Transfer Assistive Devices Gait Belt,Front Wheeled Walker Comments Mobility Comments Pt MODA to help get out of the bed and wanting help to get his trunk upright. OT- Gait Assessment Comments Gait Ability Comments SBA with FWW to the bathroom and assist to move the IV pole. OT- Balance Assessment Sitting Balance and Reactions Static Sitting Balance Ability Good Dynamic Sitting Balance Ability Good Standing Balance and Reactions Static Standing Balance Ability Good Dynamic Standing Balance Ability Fair M8 OT- IP Objective Assessments Start: 04/18/22 12:24 Freq: Status: Active Protocol: Document 04/18/22 11:14 [facility] (Rec: 04/18/22 12:46 [facility] [id number]) OT-Muscle Tone Assessment Muscle Tone WNL Yes M9 OT- IP Assessment and Plan Start: 04/18/22 12:24 Freq: Status: Active Protocol: Document 04/18/22 11:14 [facility] (Rec: 04/18/22 12:46 [facility] [id number]) OT Summary Assessment and Plan Potential Rehabilitation Potential Good Analytic Complexity at Evaluation Moderate Summary OT Impairments Balance,Functional Mobility, Grooming,Dressing,Toileting, Bathing,Toilet Transfers, Shower Transfers,Activity Tolerance Progress Towards Goals Slow Progress due to Medical Issues,Slow Progress due to Activity Tolerance Assessment Summary Pt MOD complexity and main barrier is decreased activity tolerance and now needing more assist for LB dressing needs. Pt has history of multiple falls in the past two weeks and would benefit from skilled rehab. Pt's was in tears on the phone with the pt wanting him to go to skilled rehab prior to going home. Goals Self-Feeding Goal Independent Grooming Goal Independent Dressing Goal Independent Toileting Goal Independent Bathing Goal Independent Toilet Transfer Goal Independent Shower Transfer Goal Independent Patient/Caregiver Education Goal Demonstrate Energy Conservation and Pacing Days to Meet Goals 10 Frequency of Treatment Frequency Of Treatment Once a Day Treatment Plan OT Treatment Plan ADL Training,Functional Cognition Training,Functional Mobility,Patient/Family Education,Discharge Planning Discharge Recommendations OT Discharge Recommendations SNF Rehab Transportation Needs at Discharge Wheelchair/Cabulance
--- NOTE | 2022-04-18 11:32 | CM.DANOTE ---
Addendum entered by Janeen Ashton R.N. 04/18/22 13:55: Luz at [facility] has accepted patient. She wants hospitalist to include in DC Summary that hospital is full, and will need skilled placement. Patient will need to go on a COVID waiver secondary to him being at [place] [facility] for two days, did not stay for three full midnights. Updated spouse, Loli, she is aware, and Dr. Alvarado is working on patient's discharge today. He does not need updated COVID swab at this time. Completing PASSR now. Spouse will continue to work on home resources. Once orders are completed, will fax over to [employer]. Updated nurse, Antionette, and updated white board at main nurses station. Original Note: DCP: Case received, EMR reviewed and met with patient. Introduced self and role. Patient also gave permission to contact spouse, Loli, and Luz Marina larry. Was able to obtain further information regarding patient. DCP assessment completed with information currently available. Patient is a 77 year old male who admitted yesterday evening to the care of the hospitalist team. PCP: Dr. Bentley. Payer: confirmed: Medicare/[employer]. Patient came to the hospital via ambulance secondary to a ground level fall that occurred at home. Patient had just discharged from [place], where he had 6 cardiac stents placed. Patient fell, before walking into his house, and EMS arrived. According to notes, patient has had multiple falls in the past two weeks. According to notes, spouse unable to care for him, and he needs cardiac rehab. Met briefly with patient. Introduced self and role. Confirmed that he resides here in [place] with spouse, Loli. tea Metzger, stays with them several days during the week. Patient gave permission to contact spouse, and tea for any additional questions. Patient is willing to go to a skilled rehab prior to home, knows it's hard for his to manage with him. He has no preferences on rehabs, whichever is the cleanest. Spoke to spouse, Loli. She was in tears. Luz Marina Stephen, was also on speaker phone. Stated, they recently discharged him from [place] [facility], he was not a candidate for open heart surgery, so they placed stents. She also stated, she never even got to speak to the capacitor tester to see about outpatient cardiac rehab, but he is so weak, he can't even walk. She stated, they discharged him too soon. Patient most likely was inpatient at [place] [facility], since he will be OBS here, may be able to use that inpatient stay. Spouse and niece also have no preference of rehabs, heard [facility] in [place] is good. Let her know that Adam most likely not authorize his [place] inpatient stay, and they do not do weekend admissions without notice. Called Luz at [facility] and asked her to review. Let her know that he is medically ready for discharge. Having Joan [facility], and [facility], as back up. Encouraged spouse to bharath at her resource book, for she was given one at his last admission here by JOANNE Agustin. P: DCP to continue to follow, and work on placement. Janeen Ashton RN/Electronic Organ Technician Discharge Planning/Care Management CM Discharge Assessment Start: 04/18/22 11:29 Freq: Status: Active Protocol: Document 04/18/22 11:30 (Rec: 04/18/22 11:31 [id number]) Discharge Planning Assessment Assigned Press Operator Helper Janeen Ashton RN/Electronic Organ Technician Advance Directives? Yes Advance Directives on File Yes History Provided By Patient,Significant Other, Medical Record Prior Living Arrangements House Household Members spouse Type of transporation used prior to Relies on Others admit Independent with ADL's No Is patient alert and oriented? Yes Needs Assistance With Bathing,Meal Prep,Managing Medications,Home Chores / Shopping Caregiver for Another No DME Already Rented / Owned FWW / Walker Barriers to Discharge Yes Comment Patient was discharged from [place] [facility] yesterday, fell, can't care for him. Discharge Plan Home Transportation Arrangement facility Referrals Initiated Jail Whiteboard Updated in Patient Room with Yes name and ext. # of Press Operator Helper Review Status In Process Next Review Type Continued Stay Review
--- NOTE | 2022-04-18 11:41 | CM.DPNOTE ---
Emailed referral to [facility] & [facility] & faxed to [facility] per Darcie. Received conf. Joan Castelan CM Assist.
--- NOTE | 2022-04-18 14:30 | P.HP_ITS ---
History of Present Illness History of Present Illness Date Patient Seen: 04/18/22 Chief complaint: Hypotension Narrative: 77-year-old gentleman with high-grade prostate adenocarcinoma current off treatment, AFib on chronic Xarelto, hypothyroidism, hyperlipidemia, and coronary artery disease he discharged from [facility] yesterday and presented to our emergency department after a fall. Patient was previously admitted to our facility April 11, 2022 with dizziness and falls. He had been at [facility] prior to that admission a similar complaint. Echocardiogram done at [facility] revealed no change in his cardiac function. His creatinine was stable. Chest x-ray was negative. Head CT was negative. CTA of the head and neck was negative. Brain MRI was also negative for acute process. He discharged home on April 12. His was reluctant to take him home as he had falling so frequently. However he had been cleared by PT and OT and he was insistent on returning home. His reports on April 13 he was sitting in a chair and was unable to get back up. EMS was contacted and assessed him. requested transport to [facility], but they were unable to do so. They did help get him in her vehicle and she brought him to [facility] for further workup. At [facility], he was found to have significant coronary artery occlusions. He required multiple stents and they ultimately transferred him to [facility]. He underwent cardiac catheterization with 6 stent placements on April 16, 2022. He discharged home April 17, 2022. Shortly after he returned home he got up to go to the bathroom and sustained a fall. He believes his legs gave out. He ended up on the floor after having his back. EMS was contacted, noted he was mildly hypotensive, and transported him to our emergency department. He did have an elevated troponin but was trending down, consistent with cardiac catheterization and stenting. Labs revealed mild anemia at 9.3. Chemistry panel was relatively unremarkable with exception of elevated glucose at 234. Troponin was 3.18. COVID testing was negative. Patient was subsequently admitted for further evaluation and observation. Follow-up troponin is 2.6. Patient reports he worked with Physical therapy today and it was asymptomatic. He denies any dizziness. No chest pain. No shortness of breath. He believes his legs just gave out and he is feeling quite weak. He is now amenable to transfer to senior living for rehab. Patient History Medical History Anticoagulated Asthma (11/04/11) Atrial flutter (03/20/17) Benign prostatic hyperplasia (11/04/11) Body mass index (BMI) of 30.0 to 39.9 (10/27/11) BPH w urinary obs/LUTS Controlled type 2 diabetes mellitus (10/03/16) Diabetes Diverticulosis of sigmoid colon (03/20/17) Elevated PSA Elevated PSA Essential hypertension (10/27/11) Family history of prostate cancer Gastroesophageal reflux disease (03/01/14) History of primary bladder cancer History of primary bladder cancer History of UTI HLD (hyperlipidemia) Hyperlipidemia (10/27/11) Hypothyroid Lower urinary tract symptoms (LUTS) Malignant neoplasm of urinary bladder (10/11/16) Melena Mild cognitive impairment Neoplasm of uncertain behavior of bladder Osteoarthritis Persistent atrial fibrillation Prostate cancer RBBB plus LA hemiblock Tubular adenoma of colon (03/20/17) Surgical History History of appendectomy History of cardiac radiofrequency ablation History of cystoscopy History of knee surgery Hx of rotator cuff surgery Comment: Additional past medical history includes coronary artery disease status post 6 stents Family & Social History Family History Father CAD (coronary artery disease) Hyperlipidemia Hypertension Hearing impairment Mother CAD (coronary artery disease) Hypertension Hyperlipidemia Cancer Social History: household members spouse Prior Living Arrangements House Safety & Behavioral: Feels Safe in Current Yes Environment Been Physically Hurt or No Threatened By a Person Tobacco & Substance use: Smoking Status Never smoker alcohol intake never alcohol intake frequency other Substance Use Type does not use Meds Home Medications and Allergies Home Medications Medication Instructions Recorded Confirmed Type lovastatin 40 mg tablet 40 mg PO Q DAY #90 tabs 03/04/17 04/11/22 Rx liothyronine 5 mcg tablet 10 mcg PO DAILY 04/18/19 04/11/22 History levothyroxine 75 mcg capsule 75 mcg PO DAILY 01/12/20 04/11/22 History tamsulosin 0.4 mg capsule (Flomax) 0.4 mg PO QPM 10/19/20 04/11/22 History finasteride 5 mg tablet 5 mg PO DAILY #90 tabs 03/06/21 04/11/22 Rx amiodarone 200 mg tablet 100 mg PO QPM 12/17/21 04/11/22 History metoprolol succinate 25 mg 25 mg PO DAILY 12/29/21 04/11/22 History tablet,extended release 24 hr rivaroxaban 20 mg tablet (Xarelto) 20 mg PO DAILY 03/06/22 04/11/22 History enalapril maleate 5 mg tablet 5 mg PO QDAY #90 tabs 04/18/22 04/11/22 Rx metoprolol succinate 25 mg 12.5 mg PO BEDTIME #30 tabs 04/18/22 04/11/22 Rx tablet,extended release 24 hr Allergies Allergy/AdvReac Type Severity Reaction Status Date / Time latex Allergy Verified 03/07/22 13:07 Review of Systems Review of Systems Narrative: All other systems were reviewed negative Exam Vital Signs (past 8 hours): - 04/18/22 07:00 04/18/22 09:43 04/18/22 09:43 Temperature 97.0 F L Pulse Rate 90 90 90 Respiratory Rate 14 Blood Pressure 128/56 L 128/56 L 128/56 L Pulse Oximetry 99 Oxygen Flow Rate 0 04/18/22 11:00 Temperature 97.3 F L Pulse Rate 89 Respiratory Rate 18 Blood Pressure 106/64 Pulse Oximetry 99 Oxygen Flow Rate 0 Oxygen Delivery Method CPAP Oxygen Flow Rate 0 Narrative Exam Narrative: GEN: Very pleasant elderly male, Alert and oriented x3, no acute distress HEENT: Normocephalic, face symmetric, pupils equal round reactive to light, extraocular movements intact, sclerae anicteric, conjunctiva clear, nares patent, oropharynx reveals an intact soft and hard palate with moist mucous membranes, dentition is fair NECK: Supple, no lymphadenopathy, thyroid without enlargement or nodularity, carotids no bruits CHEST: Respiratory excursions symmetric, clear to auscultation bilaterally CV: Irregularly irregular, rate controlled,, no murmurs, rubs, gallops, PMI cannot be palpated ABD: Soft, nontender, nondistended, bowel sounds present in all 4 quadrants, body habitus limits exam EXTR: Warm, well perfused, no clubbing/cyanosis/edema SKIN: Warm and dry, without rash NEURO: Alert and oriented x3, cranial nerves 2 through 12 are intact and symmetric bilaterally, motor strength 5/5 throughout, sensation intact throughout PSYCH: Mood and affect is within normal limits, judgment and insight are appropriate Objective Labs Result Diagrams: 04/18/22 06:41 04/18/22 06:41 Labs: Laboratory Results - last 24 hr 04/17/22 04/17/22 04/17/22 17:06 17:06 17:06 WBC 8.7 RBC 3.46 L Hgb 9.3 L Hct 28.2 L MCV 81.6 MCH 26.8 MCHC 32.9 RDW 18.5 H Plt Count 341 Neut % (Auto) 89.7 H Lymph % (Auto) 3.0 L [place] % (Auto) 6.8 Eos % (Auto) 0.3 L Baso % (Auto) 0.2 Neut # (Auto) 7800 H Lymph # (Auto) 300 L [place] # (Auto) 600 Eos # (Auto) 0 Baso # (Auto) 0 PT INR APTT Sodium 136 L Potassium 3.5 Chloride 100 Carbon Dioxide 27 BUN 24 H Creatinine 1.08 Estimated GFR > 60 BUN/Creatinine Ratio 22.2 H Glucose 234 H D Calcium 7.9 L Magnesium 1.6 Total Bilirubin 0.4 AST 42 ALT 18 Alkaline Phosphatase 65 Total Creatine Kinase 102 CK-MB (CK-2) 7.64 H CK-MB (CK-2) Rel Index 7.5 H* Troponin I 3.180 H* Total Protein 6.5 Albumin 3.2 L Globulin 3.3 Albumin/Globulin Ratio 1.0 Lipase 29 TSH Urine Color Urine Appearance Urine pH Ur Specific [place] Urine Protein Urine Glucose (UA) Urine Ketones Urine Occult Blood Urine Nitrate Urine Bilirubin Urine Urobilinogen Ur Leukocyte Esterase Urine RBC Urine WBC Ur Squamous Epith Cells Urine Bacteria Urine Mucus Ur Culture Indicated? SARS-CoV-2 (PCR) 04/17/22 04/17/22 04/18/22 18:35 19:04 06:41 WBC 6.9 RBC 3.54 L Hgb 9.5 L Hct 29.0 L MCV 81.8 MCH 26.9 MCHC 32.9 RDW 18.4 H Plt Count 307 Neut % (Auto) 83.6 H Lymph % (Auto) 5.4 L [place] % (Auto) 9.7 Eos % (Auto) 0.8 L Baso % (Auto) 0.5 Neut # (Auto) 5800 Lymph # (Auto) 400 L [place] # (Auto) 700 Eos # (Auto) 100 Baso # (Auto) 0 PT 16.8 H D INR 1.5 H APTT 31 D Sodium Potassium Chloride Carbon Dioxide BUN Creatinine Estimated GFR BUN/Creatinine Ratio Glucose Calcium Magnesium Total Bilirubin AST ALT Alkaline Phosphatase Total Creatine Kinase CK-MB (CK-2) CK-MB (CK-2) Rel Index Troponin I Total Protein Albumin Globulin Albumin/Globulin Ratio Lipase TSH Urine Color Urine Appearance Urine pH Ur Specific [place] Urine Protein Urine Glucose (UA) Urine Ketones Urine Occult Blood Urine Nitrate Urine Bilirubin Urine Urobilinogen Ur Leukocyte Esterase Urine RBC Urine WBC Ur Squamous Epith Cells Urine Bacteria Urine Mucus Ur Culture Indicated? SARS-CoV-2 (PCR) Negative 04/18/22 04/18/22 04/18/22 06:41 06:41 06:41 WBC RBC Hgb Hct MCV MCH MCHC RDW Plt Count Neut % (Auto) Lymph % (Auto) [place] % (Auto) Eos % (Auto) Baso % (Auto) Neut # (Auto) Lymph # (Auto) [place] # (Auto) Eos # (Auto) Baso # (Auto) PT INR APTT Sodium 138 Potassium 3.3 L Chloride 104 Carbon Dioxide 27 BUN 22 H Creatinine 0.90 Estimated GFR > 60 BUN/Creatinine Ratio 24.4 H Glucose 111 H D Calcium 7.8 L Magnesium Total Bilirubin 0.4 AST 30 ALT 16 Alkaline Phosphatase 59 Total Creatine Kinase CK-MB (CK-2) CK-MB (CK-2) Rel Index Troponin I 2.600 H* Total Protein 6.5 Albumin 3.2 L Globulin 3.3 Albumin/Globulin Ratio 1.0 Lipase TSH 0.60 Urine Color Urine Appearance Urine pH Ur Specific [place] Urine Protein Urine Glucose (UA) Urine Ketones Urine Occult Blood Urine Nitrate Urine Bilirubin Urine Urobilinogen Ur Leukocyte Esterase Urine RBC Urine WBC Ur Squamous Epith Cells Urine Bacteria Urine Mucus Ur Culture Indicated? SARS-CoV-2 (PCR) 04/18/22 06:50 WBC RBC Hgb Hct MCV MCH MCHC RDW Plt Count Neut % (Auto) Lymph % (Auto) [place] % (Auto) Eos % (Auto) Baso % (Auto) Neut # (Auto) Lymph # (Auto) [place] # (Auto) Eos # (Auto) Baso # (Auto) PT INR APTT Sodium Potassium Chloride Carbon Dioxide BUN Creatinine Estimated GFR BUN/Creatinine Ratio Glucose Calcium Magnesium Total Bilirubin AST ALT Alkaline Phosphatase Total Creatine Kinase CK-MB (CK-2) CK-MB (CK-2) Rel Index Troponin I Total Protein Albumin Globulin Albumin/Globulin Ratio Lipase TSH Urine Color Yellow Urine Appearance Clear Urine pH 5.0 Ur Specific [place] 1.025 Urine Protein 1+ H Urine Glucose (UA) Negative Urine Ketones Negative Urine Occult Blood Negative Urine Nitrate Negative Urine Bilirubin Negative Urine Urobilinogen 0.2 Ur Leukocyte Esterase Negative Urine RBC 0-1/hpf Urine WBC 1-5/hpf Ur Squamous Epith Cells 0-1 /hpf Urine Bacteria Moderate (10-30) H Urine Mucus 1+ H Ur Culture Indicated? Cult not indicated SARS-CoV-2 (PCR) Assessment & Plan Assessment & Plan narrative: 1. Generalized weakness/falls Patient presents with progressive weakness and falls over the last month and a half. He has high-grade prostate cancer and has been treated through the [facility]. He has been off treatment since November. He was found to have coronary disease and received multiple stents 2 days ago. He is not having any cardiac symptoms at this time. He has been evaluated by PT. and patient's is unable to care for him. For her discharge planning assist with placement for rehab. 2. Coronary artery disease status post 6 stents placed April 16, 2022 Continue medical therapy. 3. Elevated troponin Likely secondary to cardiac catheterization and stent placement. 4. Normocytic anemia Chronic. Hemoglobin appears to be at baseline. 5. Atrial fibrillation, permanent Rate controlled, on Xarelto. 6. Hypothyroidism Continue thyroid replacement 7. Hyperlipidemia Continue lovastatin 8. High-grade prostate adenocarcinoma Currently off of chemotherapy Code status Full Prophylaxis Xarelto Disposition Pending; senior living facility needed at discharge Time Spent With Patient Critical Care time: I spent a total of [] minutes of critical care time on this patient's care today; this time is exclusive of procedural time. Quality VTE Deep Vein Thrombosis/Pulmonary Embolism Present on Admission: No
--- NOTE | 2022-04-18 14:51 | P.DS_ITS ---
History of Present Illness History of Present Illness Date Patient Seen: 04/18/22 Chief complaint: Hypotension Narrative: 77-year-old gentleman with high-grade prostate adenocarcinoma current off treatment, AFib on chronic Xarelto, hypothyroidism, hyperlipidemia, and coronary artery disease he discharged from [facility] yesterday and presented to our emergency department after a fall. Patient was previously admitted to our facility April 11, 2022 with dizziness and falls. He had been at [facility] prior to that admission a similar complaint. Echocardiogram done at [facility] revealed no change in his cardiac function. His creatinine was stable. Chest x-ray was negative. Head CT was negative. CTA of the head and neck was negative. Brain MRI was also negative for acute process. He discharged home on April 12. His was reluctant to take him home as he had falling so frequently. However he had been cleared by PT and OT and he was insistent on returning home. His reports on April 13 he was sitting in a chair and was unable to get back up. EMS was contacted and assessed him. requested transport to [facility], but they were unable to do so. They did help get him in her vehicle and she brought him to [facility] for further workup. At [facility], he was found to have significant coronary artery occlusions. He required multiple stents and they ultimately transferred him to [facility]. He underwent cardiac catheterization with 6 stent placements on April 16, 2022. He discharged home April 17, 2022. Shortly after he returned home he got up to go to the bathroom and sustained a fall. He believes his legs gave out. He ended up on the floor after having his back. EMS was contacted, noted he was mildly hypotensive, and transported him to our emergency department. He did have an elevated troponin but was trending down, consistent with cardiac catheterization and stenting. Labs revealed mild anemia at 9.3. Chemistry panel was relatively unremarkable with exception of elevated glucose at 234. Troponin was 3.18. COVID testing was negative. Patient was subsequently admitted for further evaluation and observation. Follow-up troponin is 2.6. Patient reports he worked with Physical therapy today and it was asymptomatic. He denies any dizziness. No chest pain. No shortness of breath. He believes his legs just gave out and he is feeling quite weak. He is now amenable to transfer to group home for rehab. Discharge Providers Provider Date of admission: 04/17/22 23:39 Discharge Date: 04/18/22 Primary care physician: Leatha Bentley DO Consults: 04/18/22 01:51 Consult to Occupational Therapy Evaluate & Treat Comment: weakness /deconditioning Physician Instructions: Evaluate and treat Consult to Physical Therapy Evaluate & Treat Comment: weakness/deconditioning Physician Instructions: Evaluate and Treat Discharge provider: Sheryl Alvarado MD Summary Hospital Course Discharge Diagnosis: Generalized weakness/falls Of coronary artery disease Elevated troponin, secondary to heart catheterization Normocytic anemia, chronic, stable new line AFib, permanent on chronic anticoagulation Hypothyroidism Hyperlipidemia High-grade prostate adenocarcinoma Hospital Course: Patient was admitted after recurring falls and weakness. He has had multiple evaluations at [facility] as well as [facility] in the past month and a half. Likely etiology at this point for his falls are multifactorial from weakness, balance issues, and overall debility. His cardiac disease has been addressed with stenting as noted above. Due to difficulties with care at home and his high fall risk, patient was referred and accepted to [facility] for further rehab. Patient does have a colon biopsy planned, but it is on hold at this time while he is working on rehab. Patient is discharging relatively rapidly and will be transferring to [facility] on a COVID waiver. Exam Vital Signs (past 8 hours): - 04/18/22 07:00 04/18/22 09:43 04/18/22 09:43 Temperature 97.0 F L Pulse Rate 90 90 90 Respiratory Rate 14 Blood Pressure 128/56 L 128/56 L 128/56 L Pulse Oximetry 99 Oxygen Flow Rate 0 04/18/22 11:00 Temperature 97.3 F L Pulse Rate 89 Respiratory Rate 18 Blood Pressure 106/64 Pulse Oximetry 99 Oxygen Flow Rate 0 Oxygen Delivery Method CPAP Oxygen Flow Rate 0 Objective Labs Result Diagrams: 04/18/22 06:41 04/18/22 06:41 Labs: Laboratory Results - last 24 hr 04/17/22 04/17/22 04/17/22 17:06 17:06 17:06 WBC 8.7 RBC 3.46 L Hgb 9.3 L Hct 28.2 L MCV 81.6 MCH 26.8 MCHC 32.9 RDW 18.5 H Plt Count 341 Neut % (Auto) 89.7 H Lymph % (Auto) 3.0 L [place] % (Auto) 6.8 Eos % (Auto) 0.3 L Baso % (Auto) 0.2 Neut # (Auto) 7800 H Lymph # (Auto) 300 L [place] # (Auto) 600 Eos # (Auto) 0 Baso # (Auto) 0 PT INR APTT Sodium 136 L Potassium 3.5 Chloride 100 Carbon Dioxide 27 BUN 24 H Creatinine 1.08 Estimated GFR > 60 BUN/Creatinine Ratio 22.2 H Glucose 234 H D Calcium 7.9 L Magnesium 1.6 Total Bilirubin 0.4 AST 42 ALT 18 Alkaline Phosphatase 65 Total Creatine Kinase 102 CK-MB (CK-2) 7.64 H CK-MB (CK-2) Rel Index 7.5 H* Troponin I 3.180 H* Total Protein 6.5 Albumin 3.2 L Globulin 3.3 Albumin/Globulin Ratio 1.0 Lipase 29 TSH Urine Color Urine Appearance Urine pH Ur Specific [place] Urine Protein Urine Glucose (UA) Urine Ketones Urine Occult Blood Urine Nitrate Urine Bilirubin Urine Urobilinogen Ur Leukocyte Esterase Urine RBC Urine WBC Ur Squamous Epith Cells Urine Bacteria Urine Mucus Ur Culture Indicated? SARS-CoV-2 (PCR) 04/17/22 04/17/22 04/18/22 18:35 19:04 06:41 WBC 6.9 RBC 3.54 L Hgb 9.5 L Hct 29.0 L MCV 81.8 MCH 26.9 MCHC 32.9 RDW 18.4 H Plt Count 307 Neut % (Auto) 83.6 H Lymph % (Auto) 5.4 L [place] % (Auto) 9.7 Eos % (Auto) 0.8 L Baso % (Auto) 0.5 Neut # (Auto) 5800 Lymph # (Auto) 400 L [place] # (Auto) 700 Eos # (Auto) 100 Baso # (Auto) 0 PT 16.8 H D INR 1.5 H APTT 31 D Sodium Potassium Chloride Carbon Dioxide BUN Creatinine Estimated GFR BUN/Creatinine Ratio Glucose Calcium Magnesium Total Bilirubin AST ALT Alkaline Phosphatase Total Creatine Kinase CK-MB (CK-2) CK-MB (CK-2) Rel Index Troponin I Total Protein Albumin Globulin Albumin/Globulin Ratio Lipase TSH Urine Color Urine Appearance Urine pH Ur Specific [place] Urine Protein Urine Glucose (UA) Urine Ketones Urine Occult Blood Urine Nitrate Urine Bilirubin Urine Urobilinogen Ur Leukocyte Esterase Urine RBC Urine WBC Ur Squamous Epith Cells Urine Bacteria Urine Mucus Ur Culture Indicated? SARS-CoV-2 (PCR) Negative 04/18/22 04/18/22 04/18/22 06:41 06:41 06:41 WBC RBC Hgb Hct MCV MCH MCHC RDW Plt Count Neut % (Auto) Lymph % (Auto) [place] % (Auto) Eos % (Auto) Baso % (Auto) Neut # (Auto) Lymph # (Auto) [place] # (Auto) Eos # (Auto) Baso # (Auto) PT INR APTT Sodium 138 Potassium 3.3 L Chloride 104 Carbon Dioxide 27 BUN 22 H Creatinine 0.90 Estimated GFR > 60 BUN/Creatinine Ratio 24.4 H Glucose 111 H D Calcium 7.8 L Magnesium Total Bilirubin 0.4 AST 30 ALT 16 Alkaline Phosphatase 59 Total Creatine Kinase CK-MB (CK-2) CK-MB (CK-2) Rel Index Troponin I 2.600 H* Total Protein 6.5 Albumin 3.2 L Globulin 3.3 Albumin/Globulin Ratio 1.0 Lipase TSH 0.60 Urine Color Urine Appearance Urine pH Ur Specific [place] Urine Protein Urine Glucose (UA) Urine Ketones Urine Occult Blood Urine Nitrate Urine Bilirubin Urine Urobilinogen Ur Leukocyte Esterase Urine RBC Urine WBC Ur Squamous Epith Cells Urine Bacteria Urine Mucus Ur Culture Indicated? SARS-CoV-2 (PCR) 04/18/22 06:50 WBC RBC Hgb Hct MCV MCH MCHC RDW Plt Count Neut % (Auto) Lymph % (Auto) [place] % (Auto) Eos % (Auto) Baso % (Auto) Neut # (Auto) Lymph # (Auto) [place] # (Auto) Eos # (Auto) Baso # (Auto) PT INR APTT Sodium Potassium Chloride Carbon Dioxide BUN Creatinine Estimated GFR BUN/Creatinine Ratio Glucose Calcium Magnesium Total Bilirubin AST ALT Alkaline Phosphatase Total Creatine Kinase CK-MB (CK-2) CK-MB (CK-2) Rel Index Troponin I Total Protein Albumin Globulin Albumin/Globulin Ratio Lipase TSH Urine Color Yellow Urine Appearance Clear Urine pH 5.0 Ur Specific [place] 1.025 Urine Protein 1+ H Urine Glucose (UA) Negative Urine Ketones Negative Urine Occult Blood Negative Urine Nitrate Negative Urine Bilirubin Negative Urine Urobilinogen 0.2 Ur Leukocyte Esterase Negative Urine RBC 0-1/hpf Urine WBC 1-5/hpf Ur Squamous Epith Cells 0-1 /hpf Urine Bacteria Moderate (10-30) H Urine Mucus 1+ H Ur Culture Indicated? Cult not indicated SARS-CoV-2 (PCR) PFSH Medical History Anticoagulated Asthma (11/04/11) Atrial flutter (03/20/17) Benign prostatic hyperplasia (11/04/11) Body mass index (BMI) of 30.0 to 39.9 (10/27/11) BPH w urinary obs/LUTS Controlled type 2 diabetes mellitus (10/03/16) Diabetes Diverticulosis of sigmoid colon (03/20/17) Elevated PSA Elevated PSA Essential hypertension (10/27/11) Family history of prostate cancer Gastroesophageal reflux disease (03/01/14) History of primary bladder cancer History of primary bladder cancer History of UTI HLD (hyperlipidemia) Hyperlipidemia (10/27/11) Hypothyroid Lower urinary tract symptoms (LUTS) Malignant neoplasm of urinary bladder (10/11/16) Melena Mild cognitive impairment Neoplasm of uncertain behavior of bladder Osteoarthritis Persistent atrial fibrillation Prostate cancer RBBB plus LA hemiblock Tubular adenoma of colon (03/20/17) Surgical History History of appendectomy History of cardiac radiofrequency ablation History of cystoscopy History of knee surgery Hx of rotator cuff surgery Family History Father CAD (coronary artery disease) Hyperlipidemia Hypertension Hearing impairment Mother CAD (coronary artery disease) Hypertension Hyperlipidemia Cancer Social History marital status: household members: spouse occupational status: previously employed Smoking Status: Never smoker alcohol intake: never substance use type: does not use caffeine: Yes Discharge Plan Discharge Plan Patient Disposition: SNF Transfer to: [facility] and [facility] Discharge orders & Medications Prescriptions: Continued lovastatin 40 MG tablet 40 mg PO Q DAY Qty: 90 3RF levothyroxine 75 mcg Capsule 75 mcg PO DAILY tamsulosin [Flomax] 0.4 MG capsule 0.4 mg PO QPM Xarelto 20 mg Tablet 20 mg PO DAILY Rx Instructions: must administer with evening meal metoprolol succinate 25 mg Tablet Extended Release 24 Hr 25 mg PO DAILY Rx Instructions: 25mg AM 12.5mg pm enalapril maleate 5 MG tablet 5 mg PO QDAY Qty: 90 1RF Rx Instructions: Hold for SBP<105 metoprolol succinate 25 mg Tablet Extended Release 24 Hr 12.5 mg PO BEDTIME Qty: 30 0RF Rx Instructions: Hold for SBP<105 or HR<55 liothyronine 5 mcg tablet 10 mcg PO DAILY amiodarone 200 mg tablet 100 mg PO QPM finasteride 5 mg tablet 5 mg PO DAILY Qty: 90 3RF Discontinued Xarelto 10 mg Tablet 20 mg PO DAILY Qty: 10 0RF Medication counseling provided by Pharmacist: No Follow up/Referrals: Leatha Bentley DO [Primary Care Provider] - Diet/Activity/Treatments Diet: Carb-consistent/Diabetic Liquid consistency: Normal/Thin Food texture: Regular Activity: As tolerated w/assist; fall risk Oxygen: CPAP at night per home settings (pt to use his own unit) Other treatments: PT/OT eval and treat Skin/Wound/Dressing Care Dressing: Remove dressings to bilat arms in 48 hours; new dressings if needed Discharge Data Primary Care Provider: Leatha Bentley Quality VTE Deep Vein Thrombosis/Pulmonary Embolism Present on Admission: No
--- NOTE | 2022-04-18 17:20 | PC.NURSE ---
Pt is A&Ox3, forgetful. He is afib rate controlled on telemetry. Noted BP in low 100's and metoprolol held this a.m. notified MD, and placed parameters for antihypertensives. Pt denies any dizziness, CP, respiratory symptoms ambulating with steady gait to BR and around nursing unit this afternoon with FWW. at bedside supportive, both agreeable with patient discharge plan to SNF. reports as RN is taking out pt IV that at MD anna ordered discontinuing Xarelto and staying on a daily baby aspirin. Hospitalist updated medlist. Report called to Rachael and patient discharge at approximately 1540 with facility transportee via w/chair with all of his belongins including CPAP machine. with patient.
== END 2022-04-18 15:45 ==
LOC: ED 18:12 → AC 23:42
PROVIDERS: Emergency Medicine; Internal Medicine; Admitting Provider Nurse Practitioner Family; Emergency Provider Emergency Medicine; PCP Student in an Organized Health Care Education/Training Program; Referring Provider Emergency Medicine; Visit Provider Nurse Practitioner Family
DX: I95.9 Hypotension, unspecified (principal); R53.1 Weakness; W18.39XA Other fall on same level, initial encounter; Y92.008 Other place in unspecified non-institutional (private) residence as the place of occurrence of the external cause; Z79.01 Long term (current) use of anticoagulants; R29.6 Repeated falls; Z95.818 Presence of other cardiac implants and grafts; R77.8 Other specified abnormalities of plasma proteins; D64.9 Anemia, unspecified; E03.9 Hypothyroidism, unspecified; E78.5 Hyperlipidemia, unspecified; C61 Malignant neoplasm of prostate; Z20.822 Contact with and (suspected) exposure to COVID-19
CPT/HCPCS: 36415; 70450; 71045; 80053; 81001; 82550; 82553; 83690; 83735; 84443; 84484; 85025; 85610; 85730; 87635; 93005; 93010; 96360; 96361; 97162; 97166; 97530; 99284; C9803; G0378

== ENCOUNTER → 2022-04-26 15:12 | Outpatient (ROUT) | payer MEDICARE, SELFPAY ==
[2022-04-18 00:31] VITALS: BMI 30.7
[2022-04-26 15:30] LABS: COVID19 - ADMIT (NP swab/PCR) POSITIVE (Negative)
== END ==
PROVIDERS: PCP Student in an Organized Health Care Education/Training Program; Visit Provider Emergency Medicine
DX: U07.1 COVID-19 (principal)
CPT/HCPCS: U0003; U0005

== ENCOUNTER 2022-05-15 09:57 | Emergency (ER) | payer MEDICARE, SELFPAY ==
[2022-04-18 00:31] VITALS: BMI 30.7
--- NOTE | 2022-05-15 10:07 | ED_ITS ---
HPI - Fall General Chief Complaint: Fall Stated Complaint: Ground level fall Time Seen by Provider: 05/15/22 10:07 Source: patient, EMS and old records reviewed Mode of arrival: EMS Limitations: no limitations History of Present Illness HPI Narrative: This is a 78-year-old male with cardiac stents x6 placed in March 2022, atrial fibrillation on Xarelto, hypothyroidism, dyslipidemia, asthma, diabetes type 2, prior bladder cancer and prior GI bleed. Patient states he is had multiple falls recently. He had a fall yesterday he states while he was walking, he does not believe that he had any syncope, he did not feel dizzy at that time, he states his legs just sort of gave out. He states he does have a goose egg and a little bit of discomfort on his posterior scalp, denies any active neck pain, he states he does have pain in his lower sacral back area from his recent falls which he states were maybe a little bit worse yesterday. Denies chest pain or shortness of breath. He had vomiting 3 days ago, some mild nausea but no active vomiting today. No diarrhea, constipation, melena or hematochezia. Patient denies any numbness, tingling or new weakness in his extremities. He denies any fecal or urinary incontinence. He is on Xarelto for atrial fibrillation. Patient has had prior cardiac ablation, appendectomy, cystoscopy, knee surgery rotator cuff surgery. Denies tobacco, no alcohol, no illicit. He is currently at [facility]. Related Data Home Medications Medication Instructions Recorded Confirmed liothyronine 5 mcg tablet 10 mcg PO DAILY 04/18/19 04/11/22 levothyroxine 75 mcg capsule 75 mcg PO DAILY 01/12/20 04/11/22 tamsulosin 0.4 mg capsule (Flomax) 0.4 mg PO QPM 10/19/20 04/11/22 amiodarone 200 mg tablet 100 mg PO QPM 12/17/21 04/11/22 metoprolol succinate 25 mg 25 mg PO DAILY 12/29/21 04/11/22 tablet,extended release 24 hr Previous Rx's Medication Instructions Recorded lovastatin 40 mg tablet 40 mg PO Q DAY #90 tabs 03/04/17 finasteride 5 mg tablet 5 mg PO DAILY #90 tabs 03/06/21 aspirin 81 mg capsule 81 mg PO DAILY #30 caps 04/18/22 enalapril maleate 5 mg tablet 5 mg PO QDAY #90 tabs 04/18/22 metoprolol succinate 25 mg 12.5 mg PO BEDTIME #30 tabs 04/18/22 tablet,extended release 24 hr potassium chloride 20 mEq 40 meq PO DAILY #4 tabs 05/15/22 tablet,extended release (K-Tab) Allergies Allergy/AdvReac Type Severity Reaction Status Date / Time latex Allergy Verified 03/07/22 13:07 Review of Systems Review of Systems ROS Unobtainable: All systems reviewed & are unremarkable except as noted in HPI and below Patient History Medical History Anticoagulated Asthma (11/04/11) Atrial flutter (03/20/17) Benign prostatic hyperplasia (11/04/11) Body mass index (BMI) of 30.0 to 39.9 (10/27/11) BPH w urinary obs/LUTS Controlled type 2 diabetes mellitus (10/03/16) Diabetes Diverticulosis of sigmoid colon (03/20/17) Elevated PSA Elevated PSA Essential hypertension (10/27/11) Family history of prostate cancer Gastroesophageal reflux disease (03/01/14) History of primary bladder cancer History of primary bladder cancer History of UTI HLD (hyperlipidemia) Hyperlipidemia (10/27/11) Hypothyroid Lower urinary tract symptoms (LUTS) Malignant neoplasm of urinary bladder (10/11/16) Melena Mild cognitive impairment Neoplasm of uncertain behavior of bladder Osteoarthritis Persistent atrial fibrillation Prostate cancer RBBB plus LA hemiblock Tubular adenoma of colon (03/20/17) Surgical History History of appendectomy History of cardiac radiofrequency ablation History of cystoscopy History of knee surgery Hx of rotator cuff surgery Family History Father CAD (coronary artery disease) Hyperlipidemia Hypertension Hearing impairment Mother CAD (coronary artery disease) Hypertension Hyperlipidemia Cancer Social History marital status: household members: spouse occupational status: previously employed Smoking Status: Never smoker alcohol intake: never substance use type: does not use caffeine: Yes Smoking Status: Never smoker alcohol intake frequency: other Substance Use Type: does not use Exam Narrative Exam Narrative: GEN: Patient appears in mild distress. HEAD: Patient has posterior scalp hematoma no ecchymosis, no laceration, no raccoon/Boo sign. NECK: Nontender, painless range of motion, trachea midline Negative for Nexus criteria, there is no midline line tenderness, distracting injury, altered mental status, neuro deficit, recent EtOH. EYES: PERRLA, EOMI ENT: External inspection normal, trachea is midline, TM's are normal no hemo typanum, Nares are clear, no septal hematoma, no dental or oral injury, airway is normal and with normal occlusion, No bony tenderness, no facial droop. RESP: Chest is nontender and has symmetric movement, no ecchymosis, breath sounds are normal no crackles, wheezes or rales CVS: Heart sounds are normal, no murmur noted, No JVD. ABG/GI: Nontender, soft, normal bowel sounds, no distention, no organomegaly, pelvic rock is negative NEURO: Oriented AOx3, neuro is grossly intact, sensation and motor is normal all 4 extremities moving, cranial nerves II through XII are intact, GCS is 15 PSYCH: Normal mood and affect SKIN: Intact, warm and dry, no crepitus and without decubitus BACK: No CVA tenderness, positive for for L4/L5 vertebral tenderness, no step- off's, no crepitus EXT: Atraumatic, hips are nontender, no pedal edema, normal color and temperature, patient able to lift legs off bed without issue, does not exacerbate his back discomfort, 5/5 muscle strength upper and lower extremities. Cap refill less than 2 seconds bilateral upper and lower extremities. Initial Vital Signs Initial Vital Signs: Vital Signs Temperature 98.3 F 05/15/22 10:14 Pulse Rate 78 05/15/22 10:14 Respiratory Rate 18 05/15/22 10:14 Blood Pressure 116/58 L 05/15/22 10:14 Pulse Oximetry 96 05/15/22 10:14 Oxygen Delivery Method 05/15/22 10:14 Course Orders Ordered: Discontinued Medications Potassium Chloride (Potassium Chloride 20 Meq/15 Ml Udc) 40 meq PO NOW ONE Stop: 05/15/22 12:08 Last Admin: 05/15/22 12:14 Dose: 40 meq Documented By: KF Consultations Consultation #1: Dr. Agrawal, orthopedic surgery recommends no emergent treatment with a single transverse process fracture. Time: 13:03 Vital Signs Vital signs: Vital Signs - 8 hr 05/15/22 10:14 05/15/22 11:43 05/15/22 11:44 Temperature 98.3 F Pulse Rate 78 93 H 86 Respiratory Rate 18 14 12 Blood Pressure 116/58 L 120/58 L Pulse Oximetry 96 98 97 Oxygen Delivery Method Room Air 05/15/22 12:00 Temperature Pulse Rate 80 Respiratory Rate 16 Blood Pressure 115/64 Pulse Oximetry 98 Oxygen Delivery Method MDM - Fall Lab Data Result diagrams: 05/15/22 11:17 05/15/22 11:17 Labs: Lab Results 05/15/22 05/15/22 05/15/22 Range/Units 11:17 11:17 11:17 WBC 5.7 (4.5-11.0) X10^3/uL RBC 3.18 L (4.5-5.9) X10^6/uL Hgb 8.6 L (13.5-17.5) g/dL Hct 26.2 L (41-53) % MCV 82.4 (80-100) fL MCH 27.1 (26-34) PG MCHC 32.8 (30-36) % RDW 20.0 H (11.6-14.8) % Plt Count 322 (150-400) X10^3/uL Neut % (Auto) 82.3 H (50-75) % Lymph % (Auto) 5.0 L (25-40) % [place] % (Auto) 11.5 (3-14) % Eos % (Auto) 0.8 L (2-4) % Baso % (Auto) 0.4 (0-2) % Neut # (Auto) 4700 (1383-2521) /uL Lymph # (Auto) 300 L (2496-5597) /uL [place] # (Auto) 700 (0-900) /uL Eos # (Auto) 0 (0-450) /uL Baso # (Auto) 0 (0-100) /uL PT 24.3 H (10.1-12.7) SECONDS INR 2.1 H (0.9-1.3) APTT 39 H D (26.4-36.2) SECONDS Sodium 137 (137-145) mmol/L Potassium 2.9 L (3.4-5.1) mmol/L Chloride 95 L (98-107) mmol/L Carbon Dioxide 35 H (22-32) mmol/L BUN 28 H (9-20) mg/dL Creatinine 1.05 (0.66-1.25) mg/dL Estimated GFR > 60 (>60) mL/min BUN/Creatinine Ratio 26.7 H (6-22) Glucose 106 (80-110) mg/dL Calcium 7.8 L (8.4-10.2) mg/dL Total Bilirubin 0.6 (0.2-1.3) mg/dL AST 26 (17-59) IU/L ALT 30 (<50) IU/L Alkaline Phosphatase 91 (38-126) U/L Total Protein 6.7 (6.3-8.2) g/dL Albumin 3.3 L (3.5-5.0) g/dL Globulin 3.4 (1.7-4.1) g/dL Albumin/Globulin Ratio 1.0 (1.0-2.8) ECG Data Attestation: I personally reviewed and interpreted this ECG as follows: Prior ECG tracings: available for review Interpretation: Atrial fibrillation rate of 71 QRS of 138 QTC 5[address] No acute ST elevation. Patient has prior from 04/17/[address] changes. Patient does have right bundle branch and left anterior fascicular branch block today which is present on prior EKG as well. [facility] Narrative Medical decision making narrative: This is a 77-year-old male with ground level fall, patient states legs just felt weak and gave out, he denies any syncope, he is had multiple falls recently which is why he is at [facility] after having cardiac stents placed in March. Patient also appears to have been COVID positive at the beginning of April and had a positive test from 04/26/2022. Patient is anticoagulated on Xarelto and has a large hematoma on his posterior scalp he also has some tenderness over the lower lumbar spine although he states that this was present from prior falls he was not evaluated at that time. Head CT, C-spine and L-spine CT were all obtained, labs are obtained as patient is on multiple medications and could potentially have electrolyte abnormalities for drop in hemoglobin exacerbating symptoms. These find no change on head CT or speech fine. L-spine has single transverse process fracture on the right, stable anterolisthesis with no other acute changes these were discussed with Orthopedic surgery. Patient is also noted to have hypokalemia today, he does not appear to be on any medications that would clearly cause a drop in potassium and asked to have this rechecked this week. Discharge Plan Departure Patient Disposition: Home Clinical Impression: Hematoma of scalp, Lower back pain, Closed fracture of transverse process of l umbar vertebra, Hypokalemia Instructions: DI for Transverse Process Fracture Activity Restrictions/Additional Instructions: Follow-up with orthopedic surgery for recheck. Call for an appointment. Referral is included below. Your imaging today does show a transverse process fracture at L2. You may ambulate normally. Please continue home medications as prescribed. Your potassium is low today and does need to be rechecked this week. In the next 2-3 days. Take an additional dose of potassium chloride (2 tablets or 40 meq) today and tomorrow. Prescription sent to [facility] in [place]. Please return for new or worsening symptoms, passing out, increasing weakness, severe headaches, new chest pain, shortness of breath, persistent vomiting, black or bloody stools or other new or concerning symptoms. Prescriptions: New potassium chloride [K-Tab] 20 mEq tablet extended release 40 meq PO DAILY Qty: 4 0RF No Action lovastatin 40 MG tablet 40 mg PO Q DAY Qty: 90 3RF levothyroxine 75 mcg Capsule 75 mcg PO DAILY tamsulosin [Flomax] 0.4 MG capsule 0.4 mg PO QPM metoprolol succinate 25 mg Tablet Extended Release 24 Hr 25 mg PO DAILY Rx Instructions: 25mg AM 12.5mg pm enalapril maleate 5 MG tablet 5 mg PO QDAY Qty: 90 1RF Rx Instructions: Hold for SBP<105 metoprolol succinate 25 mg Tablet Extended Release 24 Hr 12.5 mg PO BEDTIME Qty: 30 0RF Rx Instructions: Hold for SBP<105 or HR<55 aspirin 81 mg capsule 81 mg PO DAILY Qty: 30 0RF liothyronine 5 mcg tablet 10 mcg PO DAILY amiodarone 200 mg tablet 100 mg PO QPM finasteride 5 mg tablet 5 mg PO DAILY Qty: 90 3RF Referrals: Leatha Bentley DO [Primary Care Provider] - Visit Report Forms: Patient Portal/API
[2022-05-15 10:14] VITALS: BP 116/58; PULSE 78; RESP 18; TEMP 36.8; O2SAT 96; BMI 32.3
--- NOTE | 2022-05-15 10:15 | DI.CT.S_ITS ---
PROCEDURE: CT LUMBAR SPINE WO CON INDICATIONS: fall, lower lumbar pain, head injury on Xarelto TECHNIQUE: Noncontrast 3 mm thick sections acquired from the T12 level to the sacrum. Sagittal and coronal reformats were constructed. For radiation dose reduction, the following was used: automated exposure control. COMPARISON: [facility], CT, CT CHEST ABD PEL W CON, 06/07/2021, 10:02. [facility], CT, CT ABDOMEN PELVIS W CON, 12/29/2021, 12:27. FINDINGS: Image quality: Excellent. Bones: 5 non rib-bearing lumbar type vertebral bodies present. No acute lumbar spine vertebral body fracture visualized. An acute appearing minimally displaced fracture of the right transverse process of L2 is present. Bilateral pars interarticularis defects at L5-S1 as before with 7 mm anterolisthesis L5 on S1, not significantly changed. Severe multilevel degenerative changes present as before with disc height loss, endplate spurring, vacuum disc phenomenon. Soft tissues: No retroperitoneal masses or hematomas. Redemonstrated left internal iliac artery aneurysm. IMPRESSION: 1. Acute minimally displaced fracture of the right L2 transverse process. 2. No acute lumbar spine vertebral body fracture visualized. 3. Severe multilevel degenerative changes present as before. Dictated by: Tremaine Bojorquez M.D. on 05/15/2022 at 11:39 Approved by: Tremaine Bojorquez M.D. on 05/15/2022 at 11:50
--- NOTE | 2022-05-15 10:15 | DI.CT.S_ITS ---
PROCEDURE: CT CERVICAL SPINE WO CON INDICATIONS: fall, lower lumbar pain, head injury on Xarelto TECHNIQUE: Noncontrast 3 mm thick sections acquired from the skull base to the T4 level. Sagittal and coronal reformats were then constructed. For radiation dose reduction, the following was used: automated exposure control, adjustment of mA and/or kV according to patient size. COMPARISON: None. FINDINGS: Image quality: Excellent. Bones: No acute fractures or dislocations. Straightening of the normal cervical lordosis, a finding which can be seen in the setting of muscle strain and/or spasm. Moderate-severe multilevel degenerative changes of the cervical spine. Visualized superior ribs are intact. Soft tissues: Prevertebral soft tissues are normal in thickness. No paravertebral hematomas. No apical pneumothoraces. IMPRESSION: No acute cervical spine fracture visualized. Dictated by: Tremaine Bojorquez M.D. on 05/15/2022 at 11:29 Approved by: Tremaine Bojorquez M.D. on 05/15/2022 at 11:37
--- NOTE | 2022-05-15 10:15 | DI.CT.S_ITS ---
PROCEDURE: CT HEAD/BRAIN WO CON INDICATIONS: fall, lower lumbar pain, head injury on Xarelto TECHNIQUE: Noncontrast 4.5 mm thick angled axial sections acquired from the foramen magnum to the vertex, with coronal and sagittal reformats. For radiation dose reduction, the following was used: automated exposure control, adjustment of mA and/or kV according to patient size. COMPARISON: [facility], CT, CT HEAD/BRAIN WO CON, 04/17/2022, 17:03. FINDINGS: Image quality: Excellent. CSF spaces: moderate volume loss. Basal cisterns are patent. Symmetric ventricles. Brain: No midline shift. No intracranial masses or hemorrhage. Abraham-white matter interface is normal. Mild periventricular white matter hypoattenuation likely reflects chronic small vessel disease. There are atherosclerotic calcifications. Left middle fossa arachnoid cyst. Small right cerebellar encephalomalacia. Skull and face: Calvarium and visualized facial bones are intact, without suspicious lesions. Left posterior scalp hematoma and soft tissue contusion. Sinuses: Visualized sinuses and mastoids are clear. IMPRESSION: No acute intracranial abnormality. Posterior scalp soft tissue contusion and hematoma. Chronic findings as above, including cerebral volume loss and vascular disease. Dictated by: Jey Huber M.D. on 05/15/2022 at 11:14 Approved by: Jey Huber M.D. on 05/15/2022 at 11:20
--- NOTE | 2022-05-15 10:17 | DI.RAD.S_ITS ---
PROCEDURE: XR PELVIS 1-2V INDICATIONS: fall TECHNIQUE: < 1 > view(s) of the pelvis acquired. COMPARISON: None. FINDINGS: Bones: No fractures or dislocations. No suspicious bony lesions. High-grade bilateral hip osteoarthritis. Lumbosacral spondylosis. Soft tissues: Visualized bowel gas pattern is normal. No suspicious soft tissue calcifications. IMPRESSION: No acute radiographic abnormality. Consider CT or MRI to evaluate for nondisplaced injury if clinically needed. Advanced hip joint osteoarthritis bilaterally. Dictated by: Jey Huber M.D. on 05/15/2022 at 11:59 Approved by: Jey Huber M.D. on 05/15/2022 at 12:01
--- NOTE | 2022-05-15 10:17 | DI.RAD.S_ITS ---
PROCEDURE: XR CHEST 1V INDICATIONS: fall TECHNIQUE: One view of the chest was acquired. COMPARISON: [facility], CR, XR CHEST 1V, 04/17/2022, 16:58. [facility], CR, XR CHEST 1V, 04/10/2022, 23:03. FINDINGS: Surgical changes and devices: None. Lungs and pleura: Lung volumes are low. No focal consolidation. No pleural effusion or pneumothorax. Mediastinum: Borderline enlarged heart as before accentuated by lower lung volumes. Bones and chest wall: No suspicious bony lesions. Overlying soft tissues appear unremarkable. IMPRESSION: No acute radiographic abnormality in the thorax. Dictated by: Jey Huber M.D. on 05/15/2022 at 11:56 Approved by: Jey Huber M.D. on 05/15/2022 at 11:58
[2022-05-15 11:30] LABS: Add Manual Diff / Slide Review NO; Basophils Absolute Auto 0 /uL (0-100); Basophils Percent Auto 0.4 % (0-2); Eosinophils Absolute Auto 0 /uL (0-450); Eosinophils Percent Auto 0.8 % (2-4); Hematocrit 26.2 % (41-53); Hemoglobin 8.6 g/dL (13.5-17.5); Lymphocytes Absolute Auto 300 /uL (1100-4500); Mean Corpuscular HGB Conc 32.8 % (30-36); Mean Corpuscular Hemoglobin 27.1 PG (26-34); Mean Corpuscular Volume 82.4 fL (80-100); Monocytes Absolute Auto 700 /uL (0-900); Monocytes Percent Auto 11.5 % (3-14); Neutrophils Absolute Auto 4700 /uL (1500-7000); Neutrophils Percent Auto 82.3 % (50-75); Platelet Count 322 X10^3/uL (150-400); Red Blood Cell Count 3.18 X10^6/uL (4.5-5.9); White Blood Cell Count 5.7 X10^3/uL (4.5-11.0)
[2022-05-15 11:43] VITALS: PULSE 93; RESP 14; O2SAT 98
[2022-05-15 11:44] VITALS: BP 120/58; PULSE 86; RESP 12; O2SAT 97
[2022-05-15 11:49] LABS: INR 2.1 (0.9-1.3); Prothrombin Time 24.3 SECONDS (10.1-12.7)
[2022-05-15 11:54] LABS: PTT Partial Thromboplastin Tim 39 SECONDS (26.4-36.2)
[2022-05-15 12:00] VITALS: BP 115/64; PULSE 80; RESP 16; O2SAT 98
[2022-05-15 12:05] LABS: Alanine Aminotransferase 30 IU/L (<50); Albumin 3.3 g/dL (3.5-5.0); Alkaline Phosphatase 91 U/L (38-126); Aspartate Aminotransferase 26 IU/L (17-59); BUN Creatinine Ratio 26.7 (6-22); Bilirubin Total 0.6 mg/dL (0.2-1.3); Blood Urea Nitrogen 28 mg/dL (9-20); Calcium 7.8 mg/dL (8.4-10.2); Carbon Dioxide 35 mmol/L (22-32); Chloride 95 mmol/L (98-107); Estimated Glomerular Filt Rate > 60 mL/min (>60); Globulin 3.4 g/dL (1.7-4.1); Glucose 106 mg/dL (80-110); HEMOLYSIS < 15 (0-50); Potassium 2.9 mmol/L (3.4-5.1); Sodium 137 mmol/L (137-145); Total Protein 6.7 g/dL (6.3-8.2)
[2022-05-15] MEDS: POTASSIUM CHLORIDE 20 MEQ/15 ML UDC 40 MEQ PO (12:14)
--- NOTE | 2022-05-15 12:26 | PC.NURSE ---
Up to BR with walker and standby assist.
[2022-05-15 12:30] VITALS: BP 132/68; PULSE 76; RESP 22; O2SAT 97
== END 2022-05-15 14:51 | disposition home or self-care (01) ==
PROVIDERS: Emergency Provider Emergency Medicine; PCP Student in an Organized Health Care Education/Training Program
DX: S00.03XA Contusion of scalp, initial encounter (principal); M54.50 Low back pain, unspecified; S32.009A Unspecified fracture of unspecified lumbar vertebra, initial encounter for closed fracture; E87.6 Hypokalemia; R11.2 Nausea with vomiting, unspecified; R29.6 Repeated falls; W19.XXXA Unspecified fall, initial encounter
CPT/HCPCS: 36415; 70450; 71045; 72125; 72131; 72170; 80053; 85025; 85610; 85730; 93005; 99283; 99284

== ENCOUNTER → 2022-05-21 17:30 | Outpatient (ROUT) | payer MEDICARE, SELFPAY ==
[2022-04-18 00:31] VITALS: BMI 30.7
[2022-05-21 17:40] LABS: Basophils Absolute Auto 0 /uL (0-100); Basophils Percent Auto 0.4 % (0-2); Eosinophils Absolute Auto 100 /uL (0-450); Eosinophils Percent Auto 0.9 % (2-4); Hematocrit 22.8 % (41-53); Hemoglobin 7.7 g/dL (13.5-17.5); Lymphocytes Absolute Auto 300 /uL (1100-4500); Lymphocytes Percent Auto 3.9 % (25-40); Mean Corpuscular HGB Conc 33.8 % (30-36); Mean Corpuscular Hemoglobin 27.7 PG (26-34); Mean Corpuscular Volume 81.8 fL (80-100); Monocytes Absolute Auto 600 /uL (0-900); Monocytes Percent Auto 8.4 % (3-14); Neutrophils Absolute Auto 6000 /uL (1500-7000); Neutrophils Percent Auto 86.4 % (50-75); Platelet Count 336 X10^3/uL (150-400); Red Blood Cell Count 2.79 X10^6/uL (4.5-5.9); Red Cell Distribution Width 20.3 % (11.6-14.8)
[2022-05-21 17:59] LABS: Add Manual Diff / Slide Review SLIDE REVIEW
[2022-05-21 18:14] LABS: Anisocytosis 1+; Poikilocytosis 1+
== END ==
PROVIDERS: PCP Student in an Organized Health Care Education/Training Program; Visit Provider Physician Assistant
DX: D50.9 Iron deficiency anemia, unspecified (principal)
CPT/HCPCS: 85025

== ENCOUNTER 2022-05-21 20:25 | Emergency (ER) | payer MEDICARE, SELFPAY ==
[2022-04-18 00:31] VITALS: BMI 30.7
[2022-05-21 20:34] VITALS: BP 103/55; PULSE 74; RESP 16; TEMP 36.8; O2SAT 97; BMI 30.5
--- NOTE | 2022-05-21 20:43 | ED_ITS ---
HPI - Recheck/Abnormal Lab/Rx General Chief Complaint: Recheck/Abnormal Lab/Rx Stated Complaint: anemia Time Seen by Provider: 05/21/22 21:11 Source: patient and other Mode of arrival: Wheelchair History of Present Illness HPI narrative: 76-year-old male nonsmoker with history of bladder cancer, prostatitis, hypertension, and chronic anemia presents from his senior living facility for evaluation of a slowly dropping hemoglobin. The patient has been fatigued and dizzy for many months and has had occurrences of GI bleeding, prior ulcer, a few episodes of requiring transfusion sent here for further evaluation. He denies any fever chills. He has no chest pain or shortness of breath. He is had no nausea or vomiting. He states that he feels at his baseline and has no additional symptoms or concerns, stating that he is here at the request of his facility. He denies any vomiting of blood nor does he have dark and tarry stool Related Data Home Medications Medication Instructions Recorded Confirmed liothyronine 5 mcg tablet 10 mcg PO DAILY 04/18/19 04/11/22 levothyroxine 75 mcg capsule 75 mcg PO DAILY 01/12/20 04/11/22 tamsulosin 0.4 mg capsule (Flomax) 0.4 mg PO QPM 10/19/20 04/11/22 amiodarone 200 mg tablet 100 mg PO QPM 12/17/21 04/11/22 metoprolol succinate 25 mg 25 mg PO DAILY 12/29/21 04/11/22 tablet,extended release 24 hr Previous Rx's Medication Instructions Recorded lovastatin 40 mg tablet 40 mg PO Q DAY #90 tabs 03/04/17 finasteride 5 mg tablet 5 mg PO DAILY #90 tabs 03/06/21 aspirin 81 mg capsule 81 mg PO DAILY #30 caps 04/18/22 enalapril maleate 5 mg tablet 5 mg PO QDAY #90 tabs 04/18/22 metoprolol succinate 25 mg 12.5 mg PO BEDTIME #30 tabs 04/18/22 tablet,extended release 24 hr potassium chloride 20 mEq 40 meq PO DAILY #4 tabs 05/15/22 tablet,extended release (K-Tab) Allergies Allergy/AdvReac Type Severity Reaction Status Date / Time latex Allergy Verified 03/07/22 13:07 Review of Systems Review of Systems Narrative: GENERAL: See HPI HEENT: Denies sinus pain, ear pain, sore throat, difficulty swallowing, dizziness. RESPIRATORY: See HPI CARDIOVASCULAR: Denies chest pain, palpitations, orthopnea, edema, GASTROINTESTINAL: See HPI : Denies dysuria, frequency, incontinence, hematuria, urinary retention. MUSCULOSKELETAL: denies weakness, joint pain, or bony pain SKIN: Denies rash, skin lesions, or other NEUROLOGIC: Denies weakness, headache, numbness, change in speech, confusion, seizures, incoordination. PSYCHIATRIC: No concerning psychosocial issues. 12 point review of systems is negative except for those stated above Patient History Medical History Anticoagulated Asthma (11/04/11) Atrial flutter (03/20/17) Benign prostatic hyperplasia (11/04/11) Body mass index (BMI) of 30.0 to 39.9 (10/27/11) BPH w urinary obs/LUTS Controlled type 2 diabetes mellitus (10/03/16) Diabetes Diverticulosis of sigmoid colon (03/20/17) Elevated PSA Elevated PSA Essential hypertension (10/27/11) Family history of prostate cancer Gastroesophageal reflux disease (03/01/14) History of primary bladder cancer History of primary bladder cancer History of UTI HLD (hyperlipidemia) Hyperlipidemia (10/27/11) Hypothyroid Lower urinary tract symptoms (LUTS) Malignant neoplasm of urinary bladder (10/11/16) Melena Mild cognitive impairment Neoplasm of uncertain behavior of bladder Osteoarthritis Persistent atrial fibrillation Prostate cancer RBBB plus LA hemiblock Tubular adenoma of colon (03/20/17) Surgical History History of appendectomy History of cardiac radiofrequency ablation History of cystoscopy History of knee surgery Hx of rotator cuff surgery Family History Father CAD (coronary artery disease) Hyperlipidemia Hypertension Hearing impairment Mother CAD (coronary artery disease) Hypertension Hyperlipidemia Cancer Social History marital status: household members: spouse occupational status: previously employed Smoking Status: Never smoker alcohol intake: never substance use type: does not use caffeine: Yes Smoking Status: Never smoker alcohol intake frequency: other Substance Use Type: does not use Exam Narrative Exam Narrative: GENERAL: [77] year old patient appears stated age. Well-developed patient, in mild distress. HEAD: Atraumatic. Normocephalic. EYES: Pupils equal round and reactive. Extraocular motions intact. No scleral icterus. No injection or drainage. ENT: Nose without bleeding, purulent drainage. Throat without erythema, tonsillar hypertrophy or exudate. Airway patent. NECK: Trachea midline. Non tender CARDIOVASCULAR: Regular rate and rhythm without murmurs, gallops, or rubs. RESPIRATORY: Clear to auscultation. Breath sounds equal bilaterally. No wheezes, rales, or rhonchi. GASTROINTESTINAL: Abdomen soft, non-tender, nondistended. RECTAL: Heme-negative, minimally tender EXTREMITIES: No edema or joint tenderness. BACK: Nontender without deformity or crepitance. No flank tenderness. NEURO: AOx3. SKIN: No rash or erythema of visible areas Initial Vital Signs Initial Vital Signs: Vital Signs Temperature 98.3 F 05/21/22 20:34 Pulse Rate 74 05/21/22 20:34 Respiratory Rate 16 05/21/22 20:34 Blood Pressure 103/55 L 05/21/22 20:34 Pulse Oximetry 97 05/21/22 20:34 Oxygen Delivery Method 05/21/22 20:34 Course Orders Ordered: ED Orders 05/21/22 21:00 Basic Metabolic Panel Stat Complete Blood Count AUTO DIFF Stat Type and Screen Stat Vital Signs Vital signs: Vital Signs - 8 hr 05/21/22 20:34 Temperature 98.3 F Pulse Rate 74 Respiratory Rate 16 Blood Pressure 103/55 L Pulse Oximetry 97 Oxygen Delivery Method Room Air MDM - Recheck/Abnormal Lab/Rx Lab Data Result diagrams: 05/21/22 21:00 05/21/22 21:00 Labs: Lab Results 05/21/22 05/21/22 05/21/22 Range/Units 21:00 21:00 21:00 WBC 7.1 (4.5-11.0) X10^3/uL RBC 2.97 L (4.5-5.9) X10^6/uL Hgb 8.1 L (13.5-17.5) g/dL Hct 24.6 L (41-53) % MCV 82.5 (80-100) fL MCH 27.2 (26-34) PG MCHC 32.9 (30-36) % RDW 20.7 H (11.6-14.8) % Plt Count 355 (150-400) X10^3/uL Neut % (Auto) 80.8 H (50-75) % Lymph % (Auto) 7.8 L (25-40) % [place] % (Auto) 10.2 (3-14) % Eos % (Auto) 1.0 L (2-4) % Baso % (Auto) 0.2 (0-2) % Neut # (Auto) 5700 (0458-1357) /uL Lymph # (Auto) 500 L (3286-8017) /uL [place] # (Auto) 700 (0-900) /uL Eos # (Auto) 100 (0-450) /uL Baso # (Auto) 0 (0-100) /uL Sodium 137 (137-145) mmol/L Potassium 3.3 L (3.4-5.1) mmol/L Chloride 96 L (98-107) mmol/L Carbon Dioxide 33 H (22-32) mmol/L BUN 32 H (9-20) mg/dL Creatinine 1.10 (0.66-1.25) mg/dL Estimated GFR > 60 (>60) mL/min BUN/Creatinine Ratio 29.1 H (6-22) Glucose 107 (80-110) mg/dL Calcium 7.8 L (8.4-10.2) mg/dL Blood Type A Positive Antibody Screen Negative MDM Narrative Medical decision making narrative: Patient with reassuring history and physical exam with slow downward trend of hemoglobin, rechecked here and it had bumped up to over 8. There is no ind ication for transfusion, he is hemodynamically stable, no active bleeding noted, no indication for transfusion as stated. No fever or chills. Patient given return precautions and questions answered to their apparent satisfaction Discharge Plan Departure Patient Disposition: Home Clinical Impression: Anemia Instructions: Anemia Activity Restrictions/Additional Instructions: *You have been diagnosed with [anemia. Your history and physical exam are reassuring and your blood count actually improved from earlier today, there is no indication for transfusion or evidence of active bleeding] *What to do: *Please continue to take your regular medications as directed. [ ] New medication prescriptions sent to your pharmacy: [ ] [ ] New medication written as a paper prescription [x ] No new medications given *Please follow up with your primary care provider in 2-3 days, call for an appointment. Let them know you were seen in the Emergency Department and that we ask that you be seen in follow up. We will electronically transmit a record of today's note if your PCP is in our system *If you do not have a primary care provider please contact the [facility] Resource line at [phone]. They will ask some questions about your medical history and help get you set up with a doctor in the community. *Return to Emergency Department if you should have any new, worsening or concerning symptoms, such as [fever greater than 101 F, shaking chills, w orsening pain, persistent vomiting or other bothersome symptoms] Prescriptions: No Action lovastatin 40 MG tablet 40 mg PO Q DAY Qty: 90 3RF levothyroxine 75 mcg Capsule 75 mcg PO DAILY potassium chloride [K-Tab] 20 mEq tablet extended release 40 meq PO DAILY Qty: 4 0RF tamsulosin [Flomax] 0.4 MG capsule 0.4 mg PO QPM metoprolol succinate 25 mg Tablet Extended Release 24 Hr 25 mg PO DAILY Rx Instructions: 25mg AM 12.5mg pm enalapril maleate 5 MG tablet 5 mg PO QDAY Qty: 90 1RF Rx Instructions: Hold for SBP<105 metoprolol succinate 25 mg Tablet Extended Release 24 Hr 12.5 mg PO BEDTIME Qty: 30 0RF Rx Instructions: Hold for SBP<105 or HR<55 aspirin 81 mg capsule 81 mg PO DAILY Qty: 30 0RF liothyronine 5 mcg tablet 10 mcg PO DAILY amiodarone 200 mg tablet 100 mg PO QPM finasteride 5 mg tablet 5 mg PO DAILY Qty: 90 3RF Referrals: Leatha Bentley DO [Primary Care Provider] -
[2022-05-21 23:01] LABS: BUN Creatinine Ratio 29.1 (6-22); Blood Urea Nitrogen 32 mg/dL (9-20); Calcium 7.8 mg/dL (8.4-10.2); Carbon Dioxide 33 mmol/L (22-32); Chloride 96 mmol/L (98-107); Estimated Glomerular Filt Rate > 60 mL/min (>60); Glucose 107 mg/dL (80-110); HEMOLYSIS 31 (0-50); Potassium 3.3 mmol/L (3.4-5.1); Sodium 137 mmol/L (137-145)
[2022-05-21 23:03] LABS: Basophils Absolute Auto 0 /uL (0-100); Basophils Percent Auto 0.2 % (0-2); Eosinophils Absolute Auto 100 /uL (0-450); Hematocrit 24.6 % (41-53); Hemoglobin 8.1 g/dL (13.5-17.5); Lymphocytes Absolute Auto 500 /uL (1100-4500); Lymphocytes Percent Auto 7.8 % (25-40); Mean Corpuscular HGB Conc 32.9 % (30-36); Mean Corpuscular Hemoglobin 27.2 PG (26-34); Mean Corpuscular Volume 82.5 fL (80-100); Monocytes Absolute Auto 700 /uL (0-900); Monocytes Percent Auto 10.2 % (3-14); Neutrophils Absolute Auto 5700 /uL (1500-7000); Neutrophils Percent Auto 80.8 % (50-75); Platelet Count 355 X10^3/uL (150-400); Red Blood Cell Count 2.97 X10^6/uL (4.5-5.9); Red Cell Distribution Width 20.7 % (11.6-14.8); White Blood Cell Count 7.1 X10^3/uL (4.5-11.0)
[2022-05-21 23:04] LABS: Add Manual Diff / Slide Review SLIDE REVIEW
[2022-05-22 01:38] VITALS: BP 104/67; PULSE 79; RESP 22; O2SAT 96
[2022-05-22 04:51] LABS: Anisocytosis 2+; Ovalocytes 1+
== END 2022-05-22 01:38 | disposition home or self-care (01) ==
PROVIDERS: Emergency Provider Emergency Medicine; PCP Student in an Organized Health Care Education/Training Program
DX: D64.9 Anemia, unspecified (principal); D50.9 Iron deficiency anemia, unspecified
CPT/HCPCS: 80048; 85025; 86850; 86900; 86901; 99281; 99283

== ENCOUNTER 2022-06-19 17:36 | Observation (INO) | payer MEDICARE, SELFPAY ==
[2022-04-18 00:31] VITALS: BMI 30.7
[2022-06-19] VITALS (14 sets, daily range): BP systolic 91–117; BP diastolic 52–66; PULSE 67–90; RESP 16–46; TEMP 35.8–36.8; O2SAT 92–99; BMI 29.7
--- NOTE | 2022-06-19 18:06 | ED_ITS ---
HPI - GI Bleed General Chief complaint: GI Bleed Stated complaint: bloody stool, dizziness Time Seen by Provider: 06/19/22 18:05 Source: patient Mode of arrival: Wheelchair History of Present Illness HPI Narrative: 77-year-old male nonsmoker with history of prior GI bleeds, prostate cancer, anticoagulation presents with a chief complaint of dark and tarry stool for the past week or so. He has associated dizziness, weakness and lightheadedness. He denies any nausea, vomiting. He has no chest pain or shortness of breath. He denies any abdominal pain or cramping. He is had no dysuria, frequency or urgency. He denies any bright red blood. Related Data Home Medications Medication Instructions Recorded Confirmed liothyronine 5 mcg tablet 10 mcg PO DAILY 04/18/19 06/19/22 levothyroxine 75 mcg capsule 75 mcg PO DAILY 01/12/20 06/19/22 tamsulosin 0.4 mg capsule (Flomax) 0.4 mg PO QPM 10/19/20 06/19/22 amiodarone 200 mg tablet 100 mg PO QPM 12/17/21 06/19/22 metoprolol succinate 25 mg 25 mg PO DAILY 12/29/21 06/19/22 tablet,extended release 24 hr clopidogrel 75 mg tablet 75 mg PO DAILY 05/29/22 06/19/22 enalapril maleate 5 mg tablet 10 mg PO QDAY 05/29/22 06/19/22 multivitamin 1 tab PO DAILY 05/29/22 06/19/22 rivaroxaban 20 mg tablet (Xarelto) 20 mg PO DAILY 05/29/22 06/19/22 torsemide 20 mg tablet 20 mg DAILY 05/29/22 06/19/22 Previous Rx's Medication Instructions Recorded lovastatin 40 mg tablet 40 mg PO Q DAY #90 tabs 03/04/17 finasteride 5 mg tablet 5 mg PO DAILY #90 tabs 03/06/21 aspirin 81 mg capsule 81 mg PO DAILY #30 caps 04/18/22 metoprolol succinate 25 mg 12.5 mg PO BEDTIME #30 tabs 04/18/22 tablet,extended release 24 hr potassium chloride 20 mEq 40 meq PO DAILY #4 tabs 05/15/22 tablet,extended release (K-Tab) Allergies Allergy/AdvReac Type Severity Reaction Status Date / Time latex Allergy Verified 06/19/22 17:50 Review of Systems Review of Systems Narrative: GENERAL: Denies chills, fatigue, malaise, fever, sweats. HEENT: Denies sinus pain, ear pain, sore throat, difficulty swallowing, dizziness. RESPIRATORY: Denies dyspnea, cough, wheezing, hemoptysis, sputum. CARDIOVASCULAR: Denies chest pain, palpitations, orthopnea, edema, GASTROINTESTINAL: See HPI : Denies dysuria, frequency, incontinence, hematuria, urinary retention. MUSCULOSKELETAL: denies weakness, joint pain, or bony pain SKIN: Denies rash, skin lesions, or other NEUROLOGIC: Denies weakness, headache, numbness, change in speech, confusion, seizures, incoordination. PSYCHIATRIC: No concerning psychosocial issues. 12 point review of systems is negative except for those stated above Patient History Medical History Anticoagulated Asthma (11/04/11) Atrial flutter (03/20/17) Benign prostatic hyperplasia (11/04/11) Body mass index (BMI) of 30.0 to 39.9 (10/27/11) BPH w urinary obs/LUTS Controlled type 2 diabetes mellitus (10/03/16) Diabetes Diverticulosis of sigmoid colon (03/20/17) Elevated PSA Elevated PSA Essential hypertension (10/27/11) Family history of prostate cancer Gastroesophageal reflux disease (03/01/14) History of primary bladder cancer History of primary bladder cancer History of UTI HLD (hyperlipidemia) Hyperlipidemia (10/27/11) Hypothyroid Lower urinary tract symptoms (LUTS) Malignant neoplasm of urinary bladder (10/11/16) Melena Mild cognitive impairment Neoplasm of uncertain behavior of bladder Osteoarthritis Persistent atrial fibrillation Prostate cancer RBBB plus LA hemiblock Tubular adenoma of colon (03/20/17) Surgical History History of appendectomy History of cardiac radiofrequency ablation History of cystoscopy History of knee surgery Hx of rotator cuff surgery Family History Father CAD (coronary artery disease) Hyperlipidemia Hypertension Hearing impairment Mother CAD (coronary artery disease) Hypertension Hyperlipidemia Cancer Social History marital status: household members: spouse occupational status: previously employed Smoking Status: Never smoker alcohol intake: never substance use type: does not use caffeine: Yes Smoking Status: Never smoker alcohol intake frequency: other Substance Use Type: does not use Exam Narrative Exam Narrative: GENERAL: [77] year old patient appears stated age. Well-developed patient, in mild distress. HEAD: Atraumatic. Normocephalic. EYES: Pupils equal round and reactive. Extraocular motions intact. No scleral icterus. No injection or drainage. ENT: Pale conjunctiva Nose without bleeding, purulent drainage. Throat without erythema, tonsillar hypertrophy or exudate. Airway patent. NECK: Trachea midline. Non tender CARDIOVASCULAR: Regular rate and rhythm without murmurs, gallops, or rubs. RESPIRATORY: Clear to auscultation. Breath sounds equal bilaterally. No wheezes, rales, or rhonchi. GASTROINTESTINAL: Abdomen soft, non-tender, nondistended. EXTREMITIES: No edema or joint tenderness. BACK: Nontender without deformity or crepitance. No flank tenderness. NEURO: AOx3. SKIN: No rash or erythema of visible areas Initial Vital Signs Initial Vital Signs: Vital Signs Temperature 98.2 F 06/19/22 17:45 Pulse Rate 85 06/19/22 17:45 Respiratory Rate 18 06/19/22 17:45 Blood Pressure 102/63 06/19/22 17:45 Pulse Oximetry 92 06/19/22 17:45 Oxygen Delivery Method 06/19/22 17:45 Course Orders Ordered: ED Orders 06/19/22 17:51 Complete Blood Count AUTO DIFF Stat Comprehensive Metabolic Panel Stat Packed Cells Stat Partial Thromboplastin Time Stat Prothrombin Time INR Stat Type and Screen Stat 06/19/22 17:55 COVID19 -Nasal RAPID/Pre-Proc Stat Acetaminophen (Acetaminophen 325 Mg Tablet) 650 mg PO Q6HR PRN PRN Reason: Fever/Mild Pain (1-3) Amiodarone HCl (Amiodarone 200 Mg Tablet) 100 mg PO QPM [facility] Atorvastatin Calcium (Atorvastatin 20 Mg Tablet) 10 mg PO DAILY [facility] Dextrose (Dextrose 50 % In Water 25 Gm/50 Ml Syringe) 25 gm IV PRN PRN PRN Reason: Hypoglycemia Enalapril Maleate (Enalapril 5 Mg Tablet) 10 mg PO DAILY [facility] Finasteride (Finasteride 5 Mg Tablet) 5 mg PO DAILY [facility] Sodium Chloride (Normal Saline 0.9%) 1,000 mls @ 60 mls/hr IV CONT [facility] Last Admin: 06/19/22 22:05 Dose: 60 mls/hr Documented By: BRADY Insulin Human Lispro (Insulin Lispro 100 Unit/Ml 3ml Vial) 0 unit SUBCUT ACHS [facility]; Protocol Levothyroxine Sodium (Levothyroxine 75 Mcg Tablet) 75 mcg PO 0600 [facility] Liothyronine Sodium (Liothyronine 5 Mcg Tablet) 10 mcg PO DAILY [facility] Metoprolol Succinate (Metoprolol Er 25 Mg Tablet) 25 mg PO DAILY [facility] Metoprolol Succinate (Metoprolol Er 25 Mg Tablet) 12.5 mg PO BEDTIME [facility] Last Admin: 06/19/22 22:10 Dose: 12.5 mg Documented By: BRADY Ondansetron HCl (Ondansetron 4 Mg/2 Ml Inj) 4 mg IV Q4HR PRN PRN Reason: Nausea Pantoprazole Sodium (Pantoprazole 40 Mg Vial) 40 mg IV BID [facility] Last Admin: 06/19/22 22:05 Dose: Not Given Documented By: BRADY Potassium Chloride (Potassium Chloride 20 Meq Tab) 40 meq PO DAILY [facility] Tamsulosin HCl (Tamsulosin 0.4 Mg Capsule) 0.4 mg PO QPM [facility] Discontinued Medications Ondansetron HCl (Ondansetron 4 Mg/2 Ml Inj) 4 mg IV Q4HR [facility] Pantoprazole Sodium (Pantoprazole 40 Mg Vial) 40 mg IV NOW ONE Stop: 06/19/22 18:07 Last Admin: 06/19/22 18:13 Dose: 40 mg Documented By: LEROY Consultations Consultation #1: Dr. Carrasquillo happy to be involved in consultation, requests admission to hospitalist and recommends transfusing a unit of packed cells Vital Signs Vital signs: Vital Signs - 8 hr 06/19/22 17:45 06/19/22 17:47 06/19/22 17:48 Temperature 98.2 F Pulse Rate 85 90 Respiratory Rate 18 23 Blood Pressure 102/63 102/63 Pulse Oximetry 92 Oxygen Delivery Method Room Air 06/19/22 17:48 06/19/22 18:00 06/19/22 18:00 Temperature Pulse Rate 79 75 Respiratory Rate 18 41 H Blood Pressure 96/52 L Pulse Oximetry 97 96 Oxygen Delivery Method 06/19/22 18:30 09/01/22 18:30 06/19/22 19:00 Temperature Pulse Rate 73 Respiratory Rate 37 H Blood Pressure 91/52 L 98/57 L Pulse Oximetry 97 Oxygen Delivery Method 06/19/22 19:00 06/19/22 19:30 06/19/22 19:30 Temperature Pulse Rate 76 75 Respiratory Rate 33 H 46 H Blood Pressure 114/55 L Pulse Oximetry 99 99 Oxygen Delivery Method 06/19/22 20:00 06/19/22 20:00 Temperature Pulse Rate 69 Respiratory Rate 46 H Blood Pressure 108/57 L Pulse Oximetry 97 Oxygen Delivery Method MDM - GI Bleed Lab Data Result diagrams: 06/19/22 17:51 06/19/22 17:51 Labs: Lab Results 06/19/22 06/19/22 06/19/22 Range/Units 17:51 17:51 17:51 WBC 9.5 (4.5-11.0) X10^3/uL RBC 2.58 L (4.5-5.9) X10^6/uL Hgb 7.4 L (13.5-17.5) g/dL Hct 21.7 L (41-53) % MCV 84.2 (80-100) fL MCH 28.7 (26-34) PG MCHC 34.1 (30-36) % RDW 21.1 H (11.6-14.8) % Plt Count 308 (150-400) X10^3/uL Neut % (Auto) 87.8 H (50-75) % Lymph % (Auto) 4.0 L (25-40) % [place] % (Auto) 7.8 (3-14) % Eos % (Auto) 0.1 L (2-4) % Baso % (Auto) 0.3 (0-2) % Neut # (Auto) 8400 H (2690-7717) /uL Lymph # (Auto) 400 L (0607-0559) /uL [place] # (Auto) 700 (0-900) /uL Eos # (Auto) 0 (0-450) /uL Baso # (Auto) 0 (0-100) /uL RBC Morphology See below Poikilocytosis 1+ H Anisocytosis 2+ H Microcytosis 1+ H PT 29.6 H (10.1-12.7) SECONDS INR 2.6 H (0.9-1.3) APTT 36 (26-36) SECONDS Sodium 134 L (137-145) mmol/L Potassium 3.4 (3.4-5.1) mmol/L Chloride 97 L (98-107) mmol/L Carbon Dioxide 31 (22-32) mmol/L BUN 33 H (9-20) mg/dL Creatinine 1.26 H (0.66-1.25) mg/dL Estimated GFR 58 L (>60) mL/min BUN/Creatinine Ratio 26.2 H (6-22) Glucose 130 H (80-110) mg/dL Calcium 7.8 L (8.4-10.2) mg/dL Magnesium (1.6-2.3) mg/dL Total Bilirubin 0.5 (0.2-1.3) mg/dL AST 28 (17-59) IU/L ALT 22 (<50) IU/L Alkaline Phosphatase 86 (38-126) U/L Total Protein 6.5 (6.3-8.2) g/dL Albumin 3.1 L (3.5-5.0) g/dL Globulin 3.4 (1.7-4.1) g/dL Albumin/Globulin Ratio 0.9 L (1.0-2.8) SARS-CoV-2 (PCR) (Negative) Blood Type Antibody Screen Crossmatch 06/19/22 06/19/22 06/19/22 Range/Units 17:51 17:51 17:55 WBC (4.5-11.0) X10^3/uL RBC (4.5-5.9) X10^6/uL Hgb (13.5-17.5) g/dL Hct (41-53) % MCV (80-100) fL MCH (26-34) PG MCHC (30-36) % RDW (11.6-14.8) % Plt Count (150-400) X10^3/uL Neut % (Auto) (50-75) % Lymph % (Auto) (25-40) % [place] % (Auto) (3-14) % Eos % (Auto) (2-4) % Baso % (Auto) (0-2) % Neut # (Auto) (9474-0246) /uL Lymph # (Auto) (7699-3670) /uL [place] # (Auto) (0-900) /uL Eos # (Auto) (0-450) /uL Baso # (Auto) (0-100) /uL RBC Morphology Poikilocytosis Anisocytosis Microcytosis PT (10.1-12.7) SECONDS INR (0.9-1.3) APTT (26-36) SECONDS Sodium (137-145) mmol/L Potassium (3.4-5.1) mmol/L Chloride (98-107) mmol/L Carbon Dioxide (22-32) mmol/L BUN (9-20) mg/dL Creatinine (0.66-1.25) mg/dL Estimated GFR (>60) mL/min BUN/Creatinine Ratio (6-22) Glucose (80-110) mg/dL Calcium (8.4-10.2) mg/dL Magnesium 1.7 (1.6-2.3) mg/dL Total Bilirubin (0.2-1.3) mg/dL AST (17-59) IU/L ALT (<50) IU/L Alkaline Phosphatase (38-126) U/L Total Protein (6.3-8.2) g/dL Albumin (3.5-5.0) g/dL Globulin (1.7-4.1) g/dL Albumin/Globulin Ratio (1.0-2.8) SARS-CoV-2 (PCR) Negative (Negative) Blood Type A Positive Antibody Screen Negative Crossmatch See Detail Discharge Plan Departure Patient Disposition: Admitted as Observation Clinical Impression: Acute GI bleeding, Anticoagulation adequate, Anemia Admit Date/Time: 06/19/22 20:08 Admit Provider: Toya Martel
[2022-06-19] MEDS: PANTOPRAZOLE 40 MG VIAL IV (18:13)
[2022-06-19 18:14] LABS: Add Manual Diff / Slide Review NO; Basophils Absolute Auto 0 /uL (0-100); Basophils Percent Auto 0.3 % (0-2); Eosinophils Absolute Auto 0 /uL (0-450); Eosinophils Percent Auto 0.1 % (2-4); Hematocrit 21.7 % (41-53); Hemoglobin 7.4 g/dL (13.5-17.5); Lymphocytes Absolute Auto 400 /uL (1100-4500); Mean Corpuscular HGB Conc 34.1 % (30-36); Mean Corpuscular Hemoglobin 28.7 PG (26-34); Mean Corpuscular Volume 84.2 fL (80-100); Monocytes Absolute Auto 700 /uL (0-900); Monocytes Percent Auto 7.8 % (3-14); Neutrophils Absolute Auto 8400 /uL (1500-7000); Neutrophils Percent Auto 87.8 % (50-75); Platelet Count 308 X10^3/uL (150-400); Red Blood Cell Count 2.58 X10^6/uL (4.5-5.9); Red Cell Distribution Width 21.1 % (11.6-14.8); White Blood Cell Count 9.5 X10^3/uL (4.5-11.0)
[2022-06-19 18:15] LABS: INR 2.6 (0.9-1.3); Prothrombin Time 29.6 SECONDS (10.1-12.7)
[2022-06-19 18:17] LABS: PTT Partial Thromboplastin Tim 36 SECONDS (26-36)
[2022-06-19 18:21] LABS: Alanine Aminotransferase 22 IU/L (<50); Albumin 3.1 g/dL (3.5-5.0); Albumin Globulin Ratio 0.9 (1.0-2.8); Alkaline Phosphatase 86 U/L (38-126); Aspartate Aminotransferase 28 IU/L (17-59); BUN Creatinine Ratio 26.2 (6-22); Bilirubin Total 0.5 mg/dL (0.2-1.3); Blood Urea Nitrogen 33 mg/dL (9-20); Calcium 7.8 mg/dL (8.4-10.2); Carbon Dioxide 31 mmol/L (22-32); Chloride 97 mmol/L (98-107); Estimated Glomerular Filt Rate 58 mL/min (>60); Globulin 3.4 g/dL (1.7-4.1); Glucose 130 mg/dL (80-110); HEMOLYSIS < 15 (0-50); Potassium 3.4 mmol/L (3.4-5.1); Sodium 134 mmol/L (137-145); Total Protein 6.5 g/dL (6.3-8.2)
[2022-06-19 18:40] LABS: Anisocytosis 2+; Microcytosis 1+; Poikilocytosis 1+
[2022-06-19 18:53] LABS: COVID19 -Nasal RAPID Negative (Negative)
--- NOTE | 2022-06-19 20:47 | P.HP_ITS ---
History of Present Illness History of Present Illness Date Patient Seen: 06/19/22 Time Patient Seen: 20:48 Chief complaint: bloody stool, dizziness Narrative: Leandro Allen is 77-year-old male nonsmoker with history of prior?high-grade prostate adenocarcinoma, bladder tumor, COPD, Asthma, GERD, diverticulitis, diverticulosis, KIRA, atrial flutter, AFib on (chronic Xarelto, plavix, asa), hypothyroidism, hyperlipidemia, BPH with lower urinary OBS, coronary artery disease (stents x6 2021), CKD, normcyticanemia, GI bleed 2020 who presented to the ED with a chief complaint of dark and tarry stool for the past week or so.? He has associated dizziness, weakness, pallor, and lightheadedness.? He denies any abd pain, cramping nausea, vomiting, hematemesis, hematuria, dysuria, frequency, urgency, bright red blood in stool, bleeding from gums, bleeding from any wounds, chest pain, shortness of breath, changes to medication, recent illness injury or trauma. Upon admit patient is afebrile temp 98.2?, mildly hypotensive BP 108/57, HR 69, tachypneic RR 33, O2 saturation 97% on room air. RBC 2.58, HGB 7.4, HCT 21.7 MCH and MCV are WNL. Patient's last H&H on 05/21/2022 was 8.1/24.6, mild hyponatremia sodium 134, chloride 97, BUN 33, creatinine 1.26, glucose 130, GFR 58. 05/21/2022 BUN 29, creatinine 1.10, 05/29/22 [employer]. 1.33. Patient's albumin is 3.1, calcium 7.8, PT is 29.6 INR is 2.6. Reported positive Hemoccult in ED, was recommended that patient be transfused was type and cross A positive, 1st unit of blood initiated in ED. Dr. Carrasquillo general surgery was consulted and agreed to take the patient for a colonoscopy tomorrow. Patient admitted for lower GI bleed. Per Dr. Dove Oncology 02/2022: He has been having diarrhea for 3 weeks now about 5-6 times a day. He has not slept well for a long time. He is tired and exalst ed. No fever and no chills. 02/28/2022 Dr. Hollingsworth did EGD/C-scope. Normla EGD exept gastric polyps. Normal ilium, diverticulosis and inflammatory chests. Bx pending. Patient History Medical History Anticoagulated Asthma (11/04/11) Atrial flutter (03/20/17) Benign prostatic hyperplasia (11/04/11) Body mass index (BMI) of 30.0 to 39.9 (10/27/11) BPH w urinary obs/LUTS Controlled type 2 diabetes mellitus (10/03/16) Diabetes Diverticulosis of sigmoid colon (03/20/17) Elevated PSA Elevated PSA Essential hypertension (10/27/11) Family history of prostate cancer Gastroesophageal reflux disease (03/01/14) History of primary bladder cancer History of primary bladder cancer History of UTI HLD (hyperlipidemia) Hyperlipidemia (10/27/11) Hypothyroid Lower urinary tract symptoms (LUTS) Malignant neoplasm of urinary bladder (10/11/16) Melena Mild cognitive impairment Neoplasm of uncertain behavior of bladder Osteoarthritis Persistent atrial fibrillation Prostate cancer RBBB plus LA hemiblock Tubular adenoma of colon (03/20/17) Surgical History History of appendectomy History of cardiac radiofrequency ablation History of cystoscopy History of knee surgery Hx of rotator cuff surgery Family & Social History Family History Father CAD (coronary artery disease) Hyperlipidemia Hypertension Hearing impairment Mother CAD (coronary artery disease) Hypertension Hyperlipidemia Cancer Social History: household members spouse Safety & Behavioral: Feels Safe in Current Yes Environment Been Physically Hurt or No Threatened By a Person Tobacco & Substance use: Smoking Status Never smoker alcohol intake never alcohol intake frequency other Substance Use Type does not use Meds Home Medications and Allergies Home Medications Medication Instructions Recorded Confirmed Type lovastatin 40 mg tablet 40 mg PO Q DAY #90 tabs 03/04/17 06/19/22 Rx liothyronine 5 mcg tablet 10 mcg PO DAILY 04/18/19 06/19/22 History levothyroxine 75 mcg capsule 75 mcg PO DAILY 01/12/20 06/19/22 History tamsulosin 0.4 mg capsule (Flomax) 0.4 mg PO QPM 10/19/20 06/19/22 History finasteride 5 mg tablet 5 mg PO DAILY #90 tabs 03/06/21 06/19/22 Rx amiodarone 200 mg tablet 100 mg PO QPM 12/17/21 06/19/22 History metoprolol succinate 25 mg 25 mg PO DAILY 12/29/21 06/19/22 History tablet,extended release 24 hr aspirin 81 mg capsule 81 mg PO DAILY #30 caps 04/18/22 06/19/22 Rx metoprolol succinate 25 mg 12.5 mg PO BEDTIME #30 tabs 04/18/22 06/19/22 Rx tablet,extended release 24 hr potassium chloride 20 mEq 40 meq PO DAILY #4 tabs 05/15/22 06/19/22 Rx tablet,extended release (K-Tab) clopidogrel 75 mg tablet 75 mg PO DAILY 05/29/22 06/19/22 History enalapril maleate 5 mg tablet 10 mg PO QDAY 05/29/22 06/19/22 History multivitamin 1 tab PO DAILY 05/29/22 06/19/22 History rivaroxaban 20 mg tablet (Xarelto) 20 mg PO DAILY 05/29/22 06/19/22 History torsemide 20 mg tablet 20 mg DAILY 05/29/22 06/19/22 History Allergies Allergy/AdvReac Type Severity Reaction Status Date / Time latex Allergy Verified 06/19/22 17:50 Review of Systems Review of Systems Narrative: All 12 point systems reviewed with the patient and are negative except otherwise documented. Exam Vital Signs (past 8 hours): - 06/19/22 17:45 06/19/22 17:47 06/19/22 17:48 Temperature 98.2 F Pulse Rate 85 90 Respiratory Rate 18 23 Blood Pressure 102/63 102/63 Pulse Oximetry 92 Oxygen Delivery Method Room Air 06/19/22 17:48 06/19/22 18:00 06/19/22 18:00 Temperature Pulse Rate 79 75 Respiratory Rate 18 41 H Blood Pressure 96/52 L Pulse Oximetry 97 96 Oxygen Delivery Method 06/19/22 18:30 06/19/22 18:30 06/19/22 19:00 Temperature Pulse Rate 73 Respiratory Rate 37 H Blood Pressure 91/52 L 98/57 L Pulse Oximetry 97 Oxygen Delivery Method 06/19/22 19:00 06/19/22 19:30 06/19/22 19:30 Temperature Pulse Rate 76 75 Respiratory Rate 33 H 46 H Blood Pressure 114/55 L Pulse Oximetry 99 99 Oxygen Delivery Method 06/19/22 20:00 06/19/22 20:00 Temperature Pulse Rate 69 Respiratory Rate 46 H Blood Pressure 108/57 L Pulse Oximetry 97 Oxygen Delivery Method Oxygen Delivery Method Room Air Narrative Exam Narrative: General: Patient is a well-developed, well-nourished in no distress at this time. HEENT: Normocephalic, atraumatic, extraocular muscles intact, oral pharynx is clear and mucous membranes are moist. Neck is supple and symmetric, trachea is midline, no adenopathy, no thyroid enlargement, nontender, no masses palpated. Negative for JVD Chest: Normal AP diameter and contour without kyphoscoliosis, no nasal flaring, retractions, or tachypneic labored Lungs: Auscultation of all lung puckett are clear without adventitious sounds, wheezes, rhonchi, or rales. Cardio: S1 & S2 with regular rate and rhythm without murmur, rubs, or gallops, no carotid bruit, no cardiac pulsations present. Abdomen: Soft nontender, negative for organomegaly, or masses. Bowel sounds are present in all 4 quadrants without guarding or rebound, no CVA tenderness. Musculoskeletal: Muscle strength and tone are equal within normal limits, no deformity, crepitus, effusions, cyanosis, clubbing or edema present. Full range of motion intact radial and pedal pulses are normal. Skin: Warm dry and intact without rashes, ulcerations or petechiae. Neuro: Alert and orientated x3, strength is +5/5 in all extremities, sensation to touch intact, no gross deficits noted of cranial nerves. Psych: Patient has a well-kept appearance, appropriate affect, mental status attitude thought context and judgment are appropriate for age. Objective Labs Result Diagrams: 06/19/22 17:51 06/19/22 17:51 Labs: Laboratory Results - last 24 hr 06/19/22 06/19/22 06/19/22 17:51 17:51 17:51 WBC 9.5 RBC 2.58 L Hgb 7.4 L Hct 21.7 L MCV 84.2 MCH 28.7 MCHC 34.1 RDW 21.1 H Plt Count 308 Neut % (Auto) 87.8 H Lymph % (Auto) 4.0 L [place] % (Auto) 7.8 Eos % (Auto) 0.1 L Baso % (Auto) 0.3 Neut # (Auto) 8400 H Lymph # (Auto) 400 L [place] # (Auto) 700 Eos # (Auto) 0 Baso # (Auto) 0 RBC Morphology See below Poikilocytosis 1+ H Anisocytosis 2+ H Microcytosis 1+ H PT 29.6 H INR 2.6 H APTT 36 Sodium 134 L Potassium 3.4 Chloride 97 L Carbon Dioxide 31 BUN 33 H Creatinine 1.26 H Estimated GFR 58 L BUN/Creatinine Ratio 26.2 H Glucose 130 H Calcium 7.8 L Total Bilirubin 0.5 AST 28 ALT 22 Alkaline Phosphatase 86 Total Protein 6.5 Albumin 3.1 L Globulin 3.4 Albumin/Globulin Ratio 0.9 L SARS-CoV-2 (PCR) Blood Type Antibody Screen Crossmatch 06/19/22 06/19/22 17:51 17:55 WBC RBC Hgb Hct MCV MCH MCHC RDW Plt Count Neut % (Auto) Lymph % (Auto) [place] % (Auto) Eos % (Auto) Baso % (Auto) Neut # (Auto) Lymph # (Auto) [place] # (Auto) Eos # (Auto) Baso # (Auto) RBC Morphology Poikilocytosis Anisocytosis Microcytosis PT INR APTT Sodium Potassium Chloride Carbon Dioxide BUN Creatinine Estimated GFR BUN/Creatinine Ratio Glucose Calcium Total Bilirubin AST ALT Alkaline Phosphatase Total Protein Albumin Globulin Albumin/Globulin Ratio SARS-CoV-2 (PCR) Negative Blood Type A Positive Antibody Screen Negative Crossmatch See Detail Assessment & Plan Assessment & Plan narrative: Leandro Allen is 77-year-old male nonsmoker with history of prior?high-grade prostate adenocarcinoma, bladder tumor, COPD, Asthma, GERD, diverticulitis, diverticulosis, KIRA, atrial flutter, AFib on (chronic Xarelto, plavix, asa), hypothyroidism, hyperlipidemia, BPH with lower urinary OBS, coronary artery disease (stents x6 2021), normcytic anemia, GI bleed 2020 who presented to the ED with a chief complaint of dark and tarry stool for the past week or so.? Admitted for lower GI bleed, packed red blood cells initiated in ED for transfusion, Dr. Carrasquillo general surgery to scope tomorrow. 1. Lower GI bleed, in a patient with chronic anticoagulation ASA, Plavix, Xarelto), with a history of GI bleed, diverticulitis, diverticulosis, acute, present on admission-patient is stable at this time -holding all anticoagulation anti-platelet therapy- and VTE prophylaxis -Per Dr. Dove Oncology 02/2022 Noted : The Patient had been having diarrhea for 3 weeks, about 5-6 times a day. He has not slept well for a long time. He is tired and exalsted. No fever and no chills. 02/28/2022 Dr. Hollingsworth did EGD/C-scope. Normla EGD exept gastric polyps. Normal ilium, diverticulosis and inflammatory chests. Bx pending. Patient is a poor historian scopes may have been done at the [facility]. -consult for Dr. Carrasquillo placed -patient typed and cross: A positive -2 units of blood ordered in ED-will repeat H&H 30-45 min after transfusion complete -Monitor for bleeding -IV protonix -NPO -Bed rest /Bedside Commode- Pt not to get up without assistance, and not to use the restroom. -sodium 134-gentle rehydration NS at 60 cc/HR -Monitor for Bleeding -hypovolemic or hemorrhagic shock 2. Chronic diastolic HFpEF EF 55% with pulmonary hypertension, Coronary artery disease status post 6 stents placed April 16, 2022, chronic, present on admission-stable Continue medical therapy. -Last Echo reported in prior note to have been completed 12/2021-? This indicated the left ventricular systolic function was normal without focal wall motion abnormalities.? His ejection fraction was 55-60%.? The right ventricle is moderately dilated.? Right systolic ventricular function is mildly reduced.? Left atrium severely dilated, right atrium severely dilated.? There was moderate mitral calcification. 3. Normocytic anemia, acute on chronic, present on admission -RBC 2.58, hemoglobin 7.4, hematocrit 21.7. -appears slightly below baseline. Hgb 8-10/ HCT 25 -05/21/2022 was 8.1/24.6 -2 units of blood ordered will repeat H&H 30-45 min after transfusion complete 4. Chronic obstructive pulmonary disease and restrictive lung disease, present on admission.? Stable. -Does not represent COPD exacerbation. -PFTs on 04/19/2019 demonstrated mild COPD and restrictive disease with decreased diffusion capacity. - Continue Albuterol MDI inhaler with spacer 2 puffs every 4 hours as needed. -continue CPAP if requested w/ respiratory consult -monitor for respiratory distress, or escalating oxygen demand. 5. NIDDM, diet-controlled, present on admission.? Stable. -10/2021 A1c 6.4% previously indicative of good control. -Patient is under the care of a verification specialist in [place] on [facility]. He is on no diabetic medications and uses various herbal supplements that he cannot recall. -A1C ordered -BS check Q6-while NPO, then ACHS -patient admitted under diabetic protocol, monitor for hypo or hyperglycemia, low does sliding scale as needed 6. Chronic kidney disease stage 3, present on admission.-stable -Today BUN 33, creatinine 1.26, glucose 130, GFR 58. 05/21/2022 BUN 29, creatinine 1.10, 05/29/22 [employer]. 1.33. -Baseline HEALTH INFORMATICS INSTRUCTOR. average 1.0 -continue to follow. 7. Chronic atrial fibrillation/flutter status post ablation, chronic, present on admission.? Stable. -The patient denies complaints of chest pain or palpitations. -Continue amiodarone, metoprolol -Holding anticoagulation with Xarelto, Plavix & ASA 8. Hypertension, essential, chronic, present on admission.? Stable. Hypotensive on admit today, below base line-96/52, 91/52, 98/57, on admit 108/57 -Blood pressure average systolic 130s -order to notify provider for map approach<65, SBP< 100/DBP<80 -Continue home enalapril 5 mg daily metoprolol succinate 25 mg daily in the morning and 12.5 mg daily at bedtime and triamterene/hydrochlorothiazide 37.5/25 mg daily. 9. Hyperlipidemia, chronic, present on admission.? Stable. -Continue lovastatin 40 mg daily. 10 Hypothyroidism, acquired, chronic, present on admission.? Stable. -TSH ordered. -Continue levothyroxine 75 mcg daily and liothyronine 10 mcg daily. 11. High-grade prostate adenocarcinoma, chronic, present on admission Currently off of chemotherapy 11. BPH, chronic, present on admission.? Stable. -Continue tamsulosin 0.8 mg daily . 12. GERD, with history of diverticulitis/diverticulosis, chronic, present on admission.? Stable. -No home PPI noted in patients chart- was on protonix daily previously 13. Obstructive sleep apnea on CPAP, chronic, present on admission.? Stable. -Continue home CPAP per RT protocol.- if requested. Code status:? FULL CODE Surrogate:? Loli card spouse Prophylaxis:? Contraindicated, SCDs only COVID PCR:? Negative Disposition patient admitted for observation expected length of stay less than 2 midnights following colonoscopy. I have utilized all available immediate resources to obtain, update, or review the patient's current medications. I confirmed that the patient's advanced care plan is present, Code status is documented and/or surrogate decision maker is listed in the patient's medical re cord. ? Time Spent With Patient Critical Care time: I spent a total of [] minutes of critical care time on this patient's care today; this time is exclusive of procedural time. Scores GCS [place] coma scale eye opening: Spontaneous [place] coma scale verbal response: Orientated [place] coma scale motor response: Obey commands [place] coma scale total score: 15
[2022-06-19 20:59] LABS: Magnesium 1.7 mg/dL (1.6-2.3)
[2022-06-19] MEDS: SODIUM CHLORIDE 0.9% 1,000 ML 60 ML IV (22:05)
[2022-06-19] MEDS: METOPROLOL ER 25 MG TABLET 12.5 MG PO (22:10)
[2022-06-19 23:47] LABS: Hemoglobin A1C% w Est Avg Glu 5.8 % (4.0-6.0)
[2022-06-20] VITALS (17 sets, daily range): BP systolic 85–134; BP diastolic 48–83; PULSE 66–112; RESP 11–27; TEMP 35.6–37; O2SAT 94–100; BMI 29.7
--- NOTE | 2022-06-20 00:59 | PC.NURSE ---
Patient was admitted by NRCORINNA. Diagnosed with GI Bleed H&H 7.4 & 21.7 unit of PRBC initiated @ 2259, infusing @ 100 CC/HR. for 15 mins. Tolerated transfusion for 15 mins. VSS, increased transfusion rate to 135 CC/HR. Pt. oriented to his room call light with in reached, bed alarm activated has a history of fall. Will cont. POC & monitor.
--- NOTE | 2022-06-20 04:25 | PC.NURSE ---
GUALBERTO Martel notified recent B/P 98/63 & HR 79, MAP 76. Ordered to draw his lab. now. Pt. denies any dizziness & no C/O chest pain , dyspnea & no SOB noted. Lab personnel here to draw his lab. 2 episodes of bloody stools & some clots, will monitor.
[2022-06-20 05:10] LABS: Add Manual Diff / Slide Review NO; Basophils Absolute Auto 0 /uL (0-100); Basophils Percent Auto 0.7 % (0-2); Eosinophils Absolute Auto 0 /uL (0-450); Eosinophils Percent Auto 0.6 % (2-4); Hemoglobin 7.7 g/dL (13.5-17.5); Lymphocytes Absolute Auto 400 /uL (1100-4500); Lymphocytes Percent Auto 5.8 % (25-40); Mean Corpuscular HGB Conc 33.5 % (30-36); Mean Corpuscular Hemoglobin 28.5 PG (26-34); Monocytes Absolute Auto 600 /uL (0-900); Monocytes Percent Auto 9.7 % (3-14); Neutrophils Absolute Auto 5200 /uL (1500-7000); Neutrophils Percent Auto 83.2 % (50-75); Platelet Count 260 X10^3/uL (150-400); Red Blood Cell Count 2.69 X10^6/uL (4.5-5.9); Red Cell Distribution Width 19.4 % (11.6-14.8); White Blood Cell Count 6.3 X10^3/uL (4.5-11.0)
[2022-06-20 05:13] LABS: INR 2.1 (0.9-1.3); Prothrombin Time 24.8 SECONDS (10.1-12.7)
[2022-06-20 05:15] LABS: Hematocrit 22.9 % (41-53)
[2022-06-20 05:16] LABS: PTT Partial Thromboplastin Tim 34 SECONDS (26-36)
[2022-06-20 05:18] LABS: Alanine Aminotransferase 20 IU/L (<50); Albumin 2.9 g/dL (3.5-5.0); Albumin Globulin Ratio 0.9 (1.0-2.8); Alkaline Phosphatase 79 U/L (38-126); Aspartate Aminotransferase 19 IU/L (17-59); BUN Creatinine Ratio 30.1 (6-22); Bilirubin Total 1.1 mg/dL (0.2-1.3); Blood Urea Nitrogen 31 mg/dL (9-20); Calcium 7.8 mg/dL (8.4-10.2); Carbon Dioxide 31 mmol/L (22-32); Chloride 99 mmol/L (98-107); Estimated Glomerular Filt Rate > 60 mL/min (>60); Globulin 3.3 g/dL (1.7-4.1); Glucose 97 mg/dL (80-110); HEMOLYSIS < 15 (0-50); Potassium 2.9 mmol/L (3.4-5.1); Sodium 136 mmol/L (137-145); Total Protein 6.2 g/dL (6.3-8.2)
--- NOTE | 2022-06-20 05:19 | PC.NURSE ---
Allevyn dressing to right inner calf saturated with old blood. Cleansed wound with NS & allevyn dressing changed. No active bleeding noted small wound scabbing.
[2022-06-20] MEDS: POTASSIUM CHLORIDE IN WATER 10 MEQ/100 ML PIGGYBACK 100 MEQ IV ×4 (06:21→11:42)
[2022-06-20] MEDS: METOPROLOL ER 25 MG TABLET PO (09:55)
[2022-06-20] MEDS: PANTOPRAZOLE 40 MG VIAL IV ×2 (09:55→21:39)
[2022-06-20] MEDS: ENALAPRIL 5 MG TABLET 10 MG PO (09:55)
[2022-06-20] MEDS: LIOTHYRONINE 5 MCG TABLET 10 MCG PO (09:55)
[2022-06-20] MEDS: POTASSIUM CHLORIDE 20 MEQ TAB 40 MEQ PO ×2 (09:56→17:56)
[2022-06-20] MEDS: FINASTERIDE 5 MG TABLET PO (09:59)
[2022-06-20] MEDS: ATORVASTATIN 20 MG TABLET 10 MG PO (10:00)
--- NOTE | 2022-06-20 10:12 | PM.CALLCOV.1 ---
Call Coverage Note Note Date of Patient Contact: 06/20/22 Time of Patient Contact: 10:12 Narrative of Care Provided: EGD today. Consult note to follow
--- NOTE | 2022-06-20 12:35 | CM.DANOTE ---
Patient is a 77 yo male who was admitted on 06/19/22 for Poss GI Bleed. Pt has MCR and AARP for insurance and his PCP is Leatha Bentley. EMR was reviewed. Per , pt with hx of prostate CA, bladder tumor, COPD, and GI bleed last year 2020. Pt getting a unit of blood and awaiting Surgeon for plan of colonoscopy today. Pt was last admitted in March 2022 this year and discharged to [facility] rehab. SW met bedside with pt and explained role and pt confirms that he still lives at home with his and was mostly independent with ADL's prior to SNF and his niece Luz Marina who lives in [facility] but works at [employer] has been staying with them 3-4 days a week for work and then goes home on her off days. Pt states his is in pretty good health and can assist if needed and they also have a small condo in [place] that they have not been too at all during COVID pandemic and have mostly stayed home the past two years due to pt's health. Pt states he has been at [facility] since his discharge from [facility] end of March and pt is ready and wanting to go home but states my spouse thinks I will fall and that she can't take care of me. Pt is hopeful to d/c home this time and spouse to be bedside later today. Pt and spouse were previously given PP CG information and SW inquired with pt if spouse has set this up yet while pt has been at SNF and pt states she hasn't done any of that yet. SW called [facility]ael and confirmed pt has been rehabbing there but states it has been Private Pay for a while as pt ambulating independently with walker and doning and doffing his own CPAP and they would recommend pt safe for d/c to home but spouse too anxious for pt to d/c home yet. They confirm pt can return at d/c but do not feel SNF level of care needed at this time. SW updated who is agreeable with ordering PT/OT after colonoscopy towards determining d/c planning needs of HH vs SNF at d/c. Plan: SW to follow closely for PT/OT orders to determine discharge needs of return to [facility] Private Pay vs home with spouse and niece assist and new HH. JOANNE Henao Discharge Planning/Care Management CM Discharge Assessment Start: 06/20/22 12:29 Freq: Status: Active Protocol: Document 06/20/22 12:29 BF (Rec: 06/20/22 12:33 BF [id number]) Discharge Planning Assessment Assigned Digester Operator JOANNE Agustin DPOA/Assigned Designee Name Spouse Loli Advance Directives? Yes Advance Directives on File Yes History Provided By Patient,Significant Other, Medical Record Has Patient been admitted in last 30 No days? Comment last admitted end of March 2022 and went to [facility] Prior Living Arrangements House Household Members spouse Type of transporation used prior to Relies on Others admit Facility Name Admitted From: [facility] Willing to Return to Facility? Yes: pt is hopeful for home, spouse very anxious Independent with ADL's Yes Is patient alert and oriented? Yes Needs Assistance With Managing Medications,Home Chores / Shopping Caregiver for Another No Community Services used prior to Physical Therapy admission: Comment walks on treadmill daily. Patient/Family Preference Correction Facility,Home with Home Health Comment HH vs SNF private pay Barriers to Discharge Yes Discharge Plan Home with Home Health Transportation Arrangement facility van if SNF and spouse if home Referrals Initiated Correction,Home Health Additional Comment HH vs SNF pending progress Whiteboard Updated in Patient Room with Yes name and ext. # of Digester Operator Review Status In Process Please Provide Date Initial DC 06/20/22 Assessment Was Performed Next Review Type Continued Stay Review
--- NOTE | 2022-06-20 16:53 | PM.PN.1 ---
Subjective Subjective Date Patient Seen: 06/20/22 Interval history: 77 M admitted with probable upper GI bleed. Pending EGD later today. Continues to have dark stools, gas pains which are intermittent. No nausea or vomiting. Feels mildly weak, mildly short of breath. No chest pain, fever, chills. Exam Vital Signs (past 8 hours): - 06/20/22 09:55 06/20/22 09:55 06/20/22 12:00 Temperature Pulse Rate 88 88 87 Respiratory Rate Blood Pressure 117/60 116/70 134/82 Pulse Oximetry Oxygen Delivery Method Oxygen Flow Rate 06/20/22 12:00 06/20/22 12:00 06/20/22 16:00 Temperature 96.0 F L 97.6 F Pulse Rate 87 78 Respiratory Rate 20 18 Blood Pressure 134/82 108/59 L Pulse Oximetry 99 96 99 Oxygen Delivery Method Room Air Oxygen Flow Rate 0 0 Oxygen Delivery Method Room Air Oxygen Flow Rate 0 Narrative Exam Narrative: General: Patient is a well-developed, well-nourished in no distress at this time. HEENT: Normocephalic, atraumatic, extraocular muscles intact, oral pharynx is clear and mucous membranes are moist. Neck: supple and symmetric, trachea is midline Chest: Normal AP diameter and contour without kyphoscoliosis Lungs: Auscultation of all lung puckett are clear without adventitious sounds, wheezes, rhonchi, or rales. Cardio: regular rate and rhythm without murmur, rubs, or gallops Abdomen: S NT ND Musculoskeletal: no joint tenderness or deformity Ext: No edema or joint effusions. Skin: Warm dry and intact without rashes, ulcerations or petechiae. Neuro: Alert and orientated x3, strength is +5/5 in all extremities, sensation to touch intact, no gross deficits noted of cranial nerves. Psych: Patient has a well-kept appearance, appropriate affect, mental status attitude thought context and judgment are appropriate for age. Objective Labs Result Diagrams: 06/20/22 04:57 06/20/22 04:57 Labs: Laboratory Results - last 24 hr 06/19/22 06/19/22 06/19/22 17:51 17:51 17:51 WBC 9.5 RBC 2.58 L Hgb 7.4 L Hct 21.7 L MCV 84.2 MCH 28.7 MCHC 34.1 RDW 21.1 H Plt Count 308 Neut % (Auto) 87.8 H Lymph % (Auto) 4.0 L [place] % (Auto) 7.8 Eos % (Auto) 0.1 L Baso % (Auto) 0.3 Neut # (Auto) 8400 H Lymph # (Auto) 400 L [place] # (Auto) 700 Eos # (Auto) 0 Baso # (Auto) 0 RBC Morphology See below Poikilocytosis 1+ H Anisocytosis 2+ H Microcytosis 1+ H PT 29.6 H INR 2.6 H APTT 36 Sodium 134 L Potassium 3.4 Chloride 97 L Carbon Dioxide 31 BUN 33 H Creatinine 1.26 H Estimated GFR 58 L BUN/Creatinine Ratio 26.2 H Glucose 130 H Hemoglobin A1c Calcium 7.8 L Magnesium Total Bilirubin 0.5 AST 28 ALT 22 Alkaline Phosphatase 86 Total Protein 6.5 Albumin 3.1 L Globulin 3.4 Albumin/Globulin Ratio 0.9 L SARS-CoV-2 (PCR) Blood Type Antibody Screen Crossmatch 06/19/22 06/19/22 06/19/22 17:51 17:51 17:51 WBC RBC Hgb Hct MCV MCH MCHC RDW Plt Count Neut % (Auto) Lymph % (Auto) [place] % (Auto) Eos % (Auto) Baso % (Auto) Neut # (Auto) Lymph # (Auto) [place] # (Auto) Eos # (Auto) Baso # (Auto) RBC Morphology Poikilocytosis Anisocytosis Microcytosis PT INR APTT Sodium Potassium Chloride Carbon Dioxide BUN Creatinine Estimated GFR BUN/Creatinine Ratio Glucose Hemoglobin A1c 5.8 Calcium Magnesium 1.7 Total Bilirubin AST ALT Alkaline Phosphatase Total Protein Albumin Globulin Albumin/Globulin Ratio SARS-CoV-2 (PCR) Blood Type A Positive Antibody Screen Negative Crossmatch See Detail 06/19/22 06/20/22 06/20/22 17:55 04:57 04:57 WBC 6.3 RBC 2.69 L Hgb 7.7 L Hct 22.9 L MCV 85.0 MCH 28.5 MCHC 33.5 RDW 19.4 H Plt Count 260 Neut % (Auto) 83.2 H Lymph % (Auto) 5.8 L [place] % (Auto) 9.7 Eos % (Auto) 0.6 L Baso % (Auto) 0.7 Neut # (Auto) 5200 Lymph # (Auto) 400 L [place] # (Auto) 600 Eos # (Auto) 0 Baso # (Auto) 0 RBC Morphology Poikilocytosis Anisocytosis Microcytosis PT 24.8 H INR 2.1 H APTT 34 Sodium Potassium Chloride Carbon Dioxide BUN Creatinine Estimated GFR BUN/Creatinine Ratio Glucose Hemoglobin A1c Calcium Magnesium Total Bilirubin AST ALT Alkaline Phosphatase Total Protein Albumin Globulin Albumin/Globulin Ratio SARS-CoV-2 (PCR) Negative Blood Type Antibody Screen Crossmatch 06/20/22 04:57 WBC RBC Hgb Hct MCV MCH MCHC RDW Plt Count Neut % (Auto) Lymph % (Auto) [place] % (Auto) Eos % (Auto) Baso % (Auto) Neut # (Auto) Lymph # (Auto) [place] # (Auto) Eos # (Auto) Baso # (Auto) RBC Morphology Poikilocytosis Anisocytosis Microcytosis PT INR APTT Sodium 136 L Potassium 2.9 L Chloride 99 Carbon Dioxide 31 BUN 31 H Creatinine 1.03 Estimated GFR > 60 BUN/Creatinine Ratio 30.1 H Glucose 97 Hemoglobin A1c Calcium 7.8 L Magnesium Total Bilirubin 1.1 AST 19 ALT 20 Alkaline Phosphatase 79 Total Protein 6.2 L Albumin 2.9 L Globulin 3.3 Albumin/Globulin Ratio 0.9 L SARS-CoV-2 (PCR) Blood Type Antibody Screen Crossmatch [facility] Medical History Anticoagulated Asthma (11/04/11) Atrial flutter (03/20/17) Benign prostatic hyperplasia (11/04/11) Body mass index (BMI) of 30.0 to 39.9 (10/27/11) BPH w urinary obs/LUTS Controlled type 2 diabetes mellitus (10/03/16) Diabetes Diverticulosis of sigmoid colon (03/20/17) Elevated PSA Elevated PSA Essential hypertension (10/27/11) Family history of prostate cancer Gastroesophageal reflux disease (03/01/14) History of primary bladder cancer History of primary bladder cancer History of UTI HLD (hyperlipidemia) Hyperlipidemia (10/27/11) Hypothyroid Lower urinary tract symptoms (LUTS) Malignant neoplasm of urinary bladder (10/11/16) Melena Mild cognitive impairment Neoplasm of uncertain behavior of bladder Osteoarthritis Persistent atrial fibrillation Prostate cancer RBBB plus LA hemiblock Tubular adenoma of colon (03/20/17) Surgical History History of appendectomy History of cardiac radiofrequency ablation History of cystoscopy History of knee surgery Hx of rotator cuff surgery Family History Father CAD (coronary artery disease) Hyperlipidemia Hypertension Hearing impairment Mother CAD (coronary artery disease) Hypertension Hyperlipidemia Cancer Social History marital status: household members: spouse occupational status: previously employed Smoking Status: Never smoker alcohol intake: never substance use type: does not use caffeine: Yes Assessment & Plan Assessment & Plan narrative: Leandro Allen is 77-year-old male nonsmoker with history of prior?high-grade prostate adenocarcinoma, bladder tumor, COPD, Asthma, GERD, diverticulitis, diverticulosis, KIRA, atrial flutter, AFib on (chronic Xarelto, plavix, asa), hypothyroidism, hyperlipidemia, BPH with lower urinary OBS, coronary artery disease (stents x6 2021), normcytic anemia, GI bleed 2020 who presented to the ED with a chief complaint of dark and tarry stool for the past week or so.? Admitted for lower GI bleed, packed red blood cells initiated in ED for transfusion, Dr. Carrasquillo general surgery to scope tomorrow. 1. Acute blood loss anemia likely secondary to GI bleed, history of peptic ulcer - stop home AC, asa, plavix for now - pending EGD today, appreciate general surgery consultation. - continue PPI IV BID - goal Hg >7. 2. Chronic diastolic HFpEF EF 55% with pulmonary hypertension, Coronary artery disease status post 6 stents placed April 16, 2022, chronic, present on admission-stable Continue medical therapy. -Last Echo reported in prior note to have been completed 12/2021-? This indicated the left ventricular systolic function was normal without focal wall motion abnormalities.? His ejection fraction was 55-60%.? The right ventricle is moderately dilated.? Right systolic ventricular function is mildly reduced.? Left atrium severely dilated, right atrium severely dilated.? There was moderate mitral calcification. 3. Normocytic anemia, acute on chronic, present on admission -RBC 2.58, hemoglobin 7.4, hematocrit 21.7. did not respond initially to transfusion, h/h 7.7 this AM will continue to trend. 4. Chronic obstructive pulmonary disease and restrictive lung disease, present on admission.? Stable. -Does not represent COPD exacerbation. -PFTs on 04/19/2019 demonstrated mild COPD and restrictive disease with decreased diffusion capacity. - Continue Albuterol MDI inhaler with spacer 2 puffs every 4 hours as needed. 5. NIDDM, diet-controlled, present on admission.? Stable. -10/2021 A1c 6.4% previously indicative of good control. -Patient is under the care of a electrocardiographic technician in [place] on [facility]. He is on no diabetic medications and uses various herbal supplements that he cannot recall. -BS check Q6-while NPO, then ACHS -patient admitted under diabetic protocol, monitor for hypo or hyperglycemia, low does sliding scale as needed 6. Chronic kidney disease stage 3, present on admission.-stable. -Baseline SANDWICH HAND. average 1.0 -continue to follow. 7. Chronic atrial fibrillation/flutter status post ablation, chronic, present on admission.? Stable. -The patient denies complaints of chest pain or palpitations. -Continue amiodarone, metoprolol -Holding anticoagulation with Xarelto, Plavix & ASA 8. Hypertension, essential, chronic, present on admission.? Stable. -Continue home enalapril 5 mg daily metoprolol succinate 25 mg daily in the morning and 12.5 mg daily at bedtime and triamterene/hydrochlorothiazide 37.5/25 mg daily. 9. Hyperlipidemia, chronic, present on admission.? Stable. -Continue lovastatin 40 mg daily. 10 Hypothyroidism, acquired, chronic, present on admission.? Stable. -Continue levothyroxine 75 mcg daily and liothyronine 10 mcg daily. 11. High-grade prostate adenocarcinoma, chronic, present on admission Currently off of chemotherapy 11. BPH, chronic, present on admission.? Stable. -Continue tamsulosin 0.8 mg daily . 12. GERD, with history of diverticulitis/diverticulosis, chronic, present on admission.? Stable. -No home PPI noted in patients chart- was on protonix daily previously -continue PPI as noted above. If + EGD will need prolonged PPI treatment. 13. Obstructive sleep apnea on CPAP, chronic, present on admission.? Stable. -Continue home CPAP per RT protocol.- if requested. Code status:? FULL CODE Surrogate:? Loli card spouse Prophylaxis:? Contraindicated, SCDs only COVID PCR:? Negative Disposition: return to SNF vs home. PT eval after endoscopy. I have utilized all available immediate resources to obtain, update, or review the patient's current medications. I confirmed that the patient's advanced care plan is present, Code status is documented and/or surrogate decision maker is listed in the patient's medical record. ? Time Spent With Patient Critical Care time: I spent a total of [] minutes of critical care time on this patient's care today; this time is exclusive of procedural time. Quality VTE Deep Vein Thrombosis/Pulmonary Embolism Present on Admission: No
--- NOTE | 2022-06-20 17:03 | PC.NURSE ---
Patient noted to have a 12 second run of SVT in the 190's on telemetry. NIRAJ Adan alerted immediately to check on patient. Patient returned to AFIB CVR on his own. Rhythm printed and shown to Dr. Billy.
[2022-06-20] MEDS: TAMSULOSIN 0.4 MG CAPSULE PO (17:56)
[2022-06-20] MEDS: AMIODARONE 200 MG TABLET 100 MG PO (17:56)
[2022-06-20 18:03] LABS: Hematocrit 24.3 % (41-53); Hemoglobin 8.1 g/dL (13.5-17.5)
--- NOTE | 2022-06-20 22:19 | PM.CN ---
History of Present Illness Consult details Date Patient Seen: 06/20/22 Time Patient Seen: 22:19 Chief complaint: bloody stool, dizziness Narrative: 77-year-old man on aspirin, Plavix and Xarelto who is admitted to the hospital for symptomatic anemia and GI bleed. He has a history of previous peptic ulcer disease. He presented to the hospital with dizziness and black tarry stools. No abdominal pain nausea vomiting hematochezia or hematemesis. He has been hemodynamically stable during his hospitalization, initial hematocrit 23, INR 2.1, platelet 260, he received 2 units of packed red blood cells. He had a normal colonoscopy within the past 1 year. No personal or family history of intestinal malignancy. Meds Home Medications and Allergies Home Medications Medication Instructions Recorded Confirmed Type lovastatin 40 mg tablet 40 mg PO Q DAY #90 tabs 03/04/17 06/19/22 Rx liothyronine 5 mcg tablet 10 mcg PO DAILY 04/18/19 06/19/22 History levothyroxine 75 mcg capsule 75 mcg PO DAILY 01/12/20 06/19/22 History tamsulosin 0.4 mg capsule (Flomax) 0.4 mg PO QPM 10/19/20 06/19/22 History finasteride 5 mg tablet 5 mg PO DAILY #90 tabs 03/06/21 06/19/22 Rx amiodarone 200 mg tablet 100 mg PO QPM 12/17/21 06/19/22 History metoprolol succinate 25 mg 25 mg PO DAILY 12/29/21 06/19/22 History tablet,extended release 24 hr aspirin 81 mg capsule 81 mg PO DAILY #30 caps 04/18/22 06/19/22 Rx metoprolol succinate 25 mg 12.5 mg PO BEDTIME #30 tabs 04/18/22 06/19/22 Rx tablet,extended release 24 hr potassium chloride 20 mEq 40 meq PO DAILY #4 tabs 05/15/22 06/19/22 Rx tablet,extended release (K-Tab) clopidogrel 75 mg tablet 75 mg PO DAILY 05/29/22 06/19/22 History enalapril maleate 5 mg tablet 10 mg PO QDAY 05/29/22 06/19/22 History multivitamin 1 tab PO DAILY 05/29/22 06/19/22 History rivaroxaban 20 mg tablet (Xarelto) 20 mg PO DAILY 05/29/22 06/19/22 History torsemide 20 mg tablet 20 mg DAILY 05/29/22 06/19/22 History Allergies Allergy/AdvReac Type Severity Reaction Status Date / Time latex Allergy Verified 06/19/22 17:50 Exam Vital Signs (past 8 hours): - 06/20/22 16:00 06/20/22 16:00 06/20/22 20:13 Temperature 97.6 F 97.6 F Pulse Rate 78 83 Respiratory Rate 18 20 Blood Pressure 108/59 L 114/83 Pulse Oximetry 99 99 96 Oxygen Delivery Method Room Air Oxygen Flow Rate 0 06/20/22 21:39 06/20/22 21:45 Temperature Pulse Rate 82 82 Respiratory Rate Blood Pressure 114/83 Pulse Oximetry Oxygen Delivery Method Oxygen Flow Rate Oxygen Delivery Method Room Air Oxygen Flow Rate 0 Narrative Exam Narrative: General elderly man alert oriented no acute distress Chest nonlabored respirations Abdomen soft nontender nondistended. Objective Labs Result Diagrams: 06/20/22 17:50 06/20/22 04:57 Labs: Laboratory Results - last 24 hr 06/19/22 06/19/22 06/20/22 17:51 17:51 04:57 WBC 6.3 RBC 2.69 L Hgb 7.7 L Hct 22.9 L MCV 85.0 MCH 28.5 MCHC 33.5 RDW 19.4 H Plt Count 260 Neut % (Auto) 83.2 H Lymph % (Auto) 5.8 L [place] % (Auto) 9.7 Eos % (Auto) 0.6 L Baso % (Auto) 0.7 Neut # (Auto) 5200 Lymph # (Auto) 400 L [place] # (Auto) 600 Eos # (Auto) 0 Baso # (Auto) 0 PT INR APTT Sodium Potassium Chloride Carbon Dioxide BUN Creatinine Estimated GFR BUN/Creatinine Ratio Glucose Hemoglobin A1c 5.8 Calcium Total Bilirubin AST ALT Alkaline Phosphatase Total Protein Albumin Globulin Albumin/Globulin Ratio Blood Type A Positive Antibody Screen Negative Crossmatch See Detail 06/20/22 06/20/22 06/20/22 04:57 04:57 17:50 WBC RBC Hgb 8.1 L Hct 24.3 L MCV MCH MCHC RDW Plt Count Neut % (Auto) Lymph % (Auto) [place] % (Auto) Eos % (Auto) Baso % (Auto) Neut # (Auto) Lymph # (Auto) [place] # (Auto) Eos # (Auto) Baso # (Auto) PT 24.8 H INR 2.1 H APTT 34 Sodium 136 L Potassium 2.9 L Chloride 99 Carbon Dioxide 31 BUN 31 H Creatinine 1.03 Estimated GFR > 60 BUN/Creatinine Ratio 30.1 H Glucose 97 Hemoglobin A1c Calcium 7.8 L Total Bilirubin 1.1 AST 19 ALT 20 Alkaline Phosphatase 79 Total Protein 6.2 L Albumin 2.9 L Globulin 3.3 Albumin/Globulin Ratio 0.9 L Blood Type Antibody Screen Crossmatch [facility] Medical History Anticoagulated Asthma (11/04/11) Atrial flutter (03/20/17) Benign prostatic hyperplasia (11/04/11) Body mass index (BMI) of 30.0 to 39.9 (10/27/11) BPH w urinary obs/LUTS Controlled type 2 diabetes mellitus (10/03/16) Diabetes Diverticulosis of sigmoid colon (03/20/17) Elevated PSA Elevated PSA Essential hypertension (10/27/11) Family history of prostate cancer Gastroesophageal reflux disease (03/01/14) History of primary bladder cancer History of primary bladder cancer History of UTI HLD (hyperlipidemia) Hyperlipidemia (10/27/11) Hypothyroid Lower urinary tract symptoms (LUTS) Malignant neoplasm of urinary bladder (10/11/16) Melena Mild cognitive impairment Neoplasm of uncertain behavior of bladder Osteoarthritis Persistent atrial fibrillation Prostate cancer RBBB plus LA hemiblock Tubular adenoma of colon (03/20/17) Surgical History History of appendectomy History of cardiac radiofrequency ablation History of cystoscopy History of knee surgery Hx of rotator cuff surgery Family History Father CAD (coronary artery disease) Hyperlipidemia Hypertension Hearing impairment Mother CAD (coronary artery disease) Hypertension Hyperlipidemia Cancer Social History marital status: household members: spouse occupational status: previously employed Tobacco & Substance Use Smoking Status: Never smoker alcohol intake: never substance use type: does not use Diet and Exercise caffeine: Yes Assessment & Plan Assessment and plan (1) Acute GI bleeding: Status: Acute Assessment & Plan narrative: 77-year-old man on aspirin Plavix and Xarelto who is admitted to the hospital with a upper GI bleed hemodynamically stable. Recommended that we proceed with esophagoduodenoscopy for further evaluation and possible treatment. Over the procedure was discussed with the patient at the bedside. Procedural risks including bleeding, missed diagnosis, intestinal perforation, anesthetic complication and were discussed. His questions have been answered and he is in agreement with this plan. Time Spent With Patient Critical Care time: I spent a total of [] minutes of critical care time on this patient's care today; this time is exclusive of procedural time.
[2022-06-20] MEDS: LACTATED RINGERS 1,000 ML 42 ML IV (22:30)
--- NOTE | 2022-06-20 23:04 | PM.OP.EGD ---
Operative Date/Time/Diagnoses Date of procedure: 06/20/22 Time of procedure: 23:04 Pre-op diagnosis: GI bleed Post-op diagnosis: other (Gastritis) Procedure & Clinicians Study performed: Esophagoduodenoscopy Same procedure as scheduled: Yes Indications: Hemodynamically stable GI bleed Surgeon: Rogelio Ludwig Procedure Notes Procedure in detail: Patient was placed supine on the table. Time out was performed. Procedural sedation was administered by Anesthesia. A bite block was placed. the scope was inserted into the mouth and advanced through the esophagus and into the stomach which was notable for mild gastritis. No active hemorrhage sides of recent bleeding or ulceration. The pylorus was intubated and the duodenum was normal to the 2nd portion. The scope was retroflexed within the stomach and there was no hiatal hernia. The scope was withdrawn into the esophagus the Z line was seen at 40 cm from the incisions. There was no Barger's esophagitis or masses or strictures. Stomach was desufflated and scope removed. Patient tolerated procedure well. Specimen(s): none sent Complications: none Impression: Gastritis Post-procedure Plan for aftercare: continue PPI Disposition: Acute Care
[2022-06-21] VITALS (9 sets, daily range): BP systolic 109–118; BP diastolic 59–72; PULSE 79–85; RESP 18; TEMP 36.1–36.3; O2SAT 96–100
[2022-06-21] MEDS: SODIUM CHLORIDE 0.9% 1,000 ML 60 ML IV (03:04)
[2022-06-21 05:46] LABS: Add Manual Diff / Slide Review NO; Basophils Absolute Auto 0 /uL (0-100); Basophils Percent Auto 0.4 % (0-2); Eosinophils Absolute Auto 100 /uL (0-450); Eosinophils Percent Auto 1.3 % (2-4); Hematocrit 23.1 % (41-53); Hemoglobin 7.7 g/dL (13.5-17.5); Lymphocytes Absolute Auto 200 /uL (1100-4500); Lymphocytes Percent Auto 3.4 % (25-40); Mean Corpuscular HGB Conc 33.3 % (30-36); Mean Corpuscular Hemoglobin 28.1 PG (26-34); Mean Corpuscular Volume 84.3 fL (80-100); Monocytes Absolute Auto 500 /uL (0-900); Monocytes Percent Auto 10.1 % (3-14); Neutrophils Absolute Auto 4300 /uL (1500-7000); Neutrophils Percent Auto 84.8 % (50-75); Platelet Count 264 X10^3/uL (150-400); Red Blood Cell Count 2.74 X10^6/uL (4.5-5.9); Red Cell Distribution Width 19.7 % (11.6-14.8)
[2022-06-21] MEDS: LEVOTHYROXINE 75 MCG TABLET PO (05:48)
[2022-06-21 05:58] LABS: Alanine Aminotransferase 20 IU/L (<50); Albumin 2.7 g/dL (3.5-5.0); Albumin Globulin Ratio 0.8 (1.0-2.8); Alkaline Phosphatase 79 U/L (38-126); Aspartate Aminotransferase 21 IU/L (17-59); Bilirubin Total 0.6 mg/dL (0.2-1.3); Blood Urea Nitrogen 26 mg/dL (9-20); Calcium 8.1 mg/dL (8.4-10.2); Carbon Dioxide 28 mmol/L (22-32); Chloride 106 mmol/L (98-107); Estimated Glomerular Filt Rate > 60 mL/min (>60); Globulin 3.4 g/dL (1.7-4.1); Glucose 92 mg/dL (80-110); HEMOLYSIS < 15 (0-50); Magnesium 1.9 mg/dL (1.6-2.3); Sodium 138 mmol/L (137-145); Total Protein 6.1 g/dL (6.3-8.2)
[2022-06-21] MEDS: POTASSIUM CHLORIDE 20 MEQ TAB 40 MEQ PO (10:09)
[2022-06-21] MEDS: FINASTERIDE 5 MG TABLET PO (10:09)
[2022-06-21] MEDS: PANTOPRAZOLE 40 MG VIAL IV (10:09)
[2022-06-21] MEDS: ACETAMINOPHEN 325 MG TABLET 650 MG PO (10:10)
[2022-06-21] MEDS: METOPROLOL ER 25 MG TABLET PO (10:10)
[2022-06-21] MEDS: LIOTHYRONINE 5 MCG TABLET 10 MCG PO (10:11)
[2022-06-21] MEDS: ATORVASTATIN 20 MG TABLET 10 MG PO (10:11)
[2022-06-21] MEDS: ENALAPRIL 5 MG TABLET 10 MG PO (10:33)
--- NOTE | 2022-06-21 11:33 | CM.DPNOTE ---
Addendum entered by Lucretia Naidu R.N. 06/21/22 13:18: DCP cont: Patient is discharged. Will return to [facility] today at 2 pm. Signed med sheets have been faxed and will be sent with patient. EDWARD Original Note: Discharge Planning Note: Patient in bed resting with bipap/cpap on. Spouse sitting on couch knitting and reiterating that patient can't come home until his heart is fixed. They are working with [facility]. Patient has been at [facility] and now private pay there since March; he would rather return home but states no. EGD done yesterday and resulted. H&H set for noon today per MD. Spoke with [facility] and asked if he can return today if is discharged and they will let me know. P: Return to [facility] private pay upon discharge. Continue to follow for needs. Savita Naidu RN/DCP
[2022-06-21] MEDS: INSULIN LISPRO 100 UNIT/ML 3ML VIAL SUBCUT (11:54)
[2022-06-21 12:14] LABS: Hematocrit 25.3 % (41-53); Hemoglobin 8.3 g/dL (13.5-17.5)
--- NOTE | 2022-06-21 12:21 | P.DS_ITS ---
History of Present Illness History of Present Illness Date Patient Seen: 06/21/22 Chief complaint: bloody stool, dizziness Narrative: Per Toya Martel, [facility]-: Leandro Allen is 77-year-old male nonsmoker with history of prior?high-grade prostate adenocarcinoma, bladder tumor, COPD, Asthma, GERD, diverticulitis, diverticulosis, KIRA, atrial flutter, AFib on (chronic Xarelto, plavix, asa), hypothyroidism, hyperlipidemia, BPH with lower urinary OBS, coronary artery disease (stents x6 2021), CKD, normcyticanemia, GI bleed 2020 who presented to the ED with a chief complaint of dark and tarry stool for the past week or so.? He has associated dizziness, weakness, pallor, and lightheadedness.? He denies any abd pain, cramping nausea, vomiting, hematemesis, hematuria, dysuria, frequency, urgency, bright red blood in stool, bleeding from gums, bleeding from any wounds, chest pain, shortness of breath, changes to medication, recent illness injury or trauma. Upon admit patient is afebrile temp 98.2?, mildly hypotensive BP 108/57, HR 69, tachypneic RR 33, O2 saturation 97% on room air. RBC 2.58, HGB 7.4, HCT 21.7 MCH and MCV are WNL. Patient's last H&H on 05/21/2022 was 8.1/24.6, mild hyponatremia sodium 134, chloride 97, BUN 33, creatinine 1.26, glucose 130, GFR 58. 05/21/2022 BUN 29, creatinine 1.10, 05/29/22 [employer]. 1.33. Patient's albumin is 3.1, calcium 7.8, PT is 29.6 INR is 2.6. Reported positive Hemoccult in ED, was recommended that patient be transfused was type and cross A positive, 1st unit of blood initiated in ED. Dr. Carrasquillo general surgery was consulted and agreed to take the patient for a colonoscopy tomorrow. Patient admitted for lower GI bleed. Per Dr. [facility] 02/2022: He has been having diarrhea for 3 weeks now about 5-6 times a day. He has not slept well for a long time. He is tired and exalsted. No fever and no chills. 02/28/2022 Dr. Hollingsworth did EGD/C-scope. Normla EGD exept gastric polyps. Normal ilium, diverticulosis and inflammatory chests. Bx pending. Discharge Providers Provider Date of admission: 06/19/22 20:08 Discharge Date: 06/21/22 Primary care physician: Leatha Bentley DO Consults: 06/19/22 20:32 Consult to General Surgery Routine Comment: Consulting Provider: Lalo Carrasquillo Reason for consultation: Lower GI bleed Has provider been notified: Yes 06/21/22 09:27 Consult to Occupational Therapy Evaluate & Treat Comment: Physician Instructions: Evaluate and treat Consult to Physical Therapy Evaluate & Treat Comment: Physician Instructions: Evaluate and Treat Discharge provider: Latrell Billy DO Summary Hospital Course Discharge Diagnosis: 1. Acute blood loss anemia likely secondary to GI bleed, history of peptic ulcer 2. Chronic diastolic HFpEF EF 55% with pulmonary hypertension, Coronary artery disease status post 6 stents placed April 16, 2022, chronic, present on admission-stable 3.? Normocytic anemia, acute on chronic, present on admission 4. Chronic obstructive pulmonary disease and restrictive lung disease, present on admission.? Stable. 5. NIDDM, diet-controlled, present on admission.? Stable. 6. Chronic kidney disease stage 3, present on admission.-stable. 7. Chronic atrial fibrillation/flutter status post ablation, chronic, present on admission.? Stable. 8. Hypertension, essential, chronic, present on admission.? Stable. 9. Hyperlipidemia, chronic, present on admission.? Stable. 10 Hypothyroidism, acquired, chronic, present on admission.? Stable. 11. High-grade prostate adenocarcinoma, chronic, present on admission 12. BPH, chronic, present on admission.? Stable. 13. GERD, with history of diverticulitis/diverticulosis, chronic, present on admission.? Stable. 14. Obstructive sleep apnea on CPAP, chronic, present on admission.? Stable. Hospital Course: Leandro Allen is 77-year-old male nonsmoker with history of prior?high-grade prostate adenocarcinoma, bladder tumor, COPD, Asthma, GERD, diverticulitis, diverticulosis, KIRA, atrial flutter, AFib on? (chronic?Xarelto, plavix, asa),? hypothyroidism, hyperlipidemia, BPH with lower urinary OBS, coronary artery disease (stents x6 2021), normcytic anemia, GI bleed 2020 who presented to the ED with a chief complaint of dark and tarry stool for the past week or so.? Admitted for GI bleed and acute blood loss anemia. He received a transfusion with improvement in his hemoglobin and hematocrit. He had an EGD which showed mild gastritis, no ulcer. After EGD, his h/h remained stable. His bowel movements had returned to normal. He is recommended to continue on protonix 40 mg PO BID for 1 month, then daily for at least 3 months, presumably longer given his history. His plavix and xarelto are also recommended to be held for at least 1 week. Can resume plavix in 1 week given recent cardiac intervention, but would continue to check h/h every few weeks. Consider outpatient colonoscopy as well with PCP. Exam Vital Signs (past 8 hours): - 06/21/22 05:05 06/21/22 07:25 06/21/22 08:42 Temperature 97.3 F L 97.0 F L Pulse Rate 79 81 Respiratory Rate 18 Blood Pressure 110/59 L 118/60 Pulse Oximetry 99 99 100 Oxygen Delivery Method Room Air Oxygen Flow Rate 0 06/21/22 10:10 06/21/22 10:33 06/21/22 11:17 Temperature Pulse Rate 81 81 81 Respiratory Rate Blood Pressure 118/60 118/60 118/60 Pulse Oximetry Oxygen Delivery Method Oxygen Flow Rate 06/21/22 11:52 Temperature Pulse Rate 85 Respiratory Rate 18 Blood Pressure 109/72 Pulse Oximetry 100 Oxygen Delivery Method Oxygen Flow Rate 0 Oxygen Delivery Method Room Air Oxygen Flow Rate 0 Narrative Exam Narrative: General: Patient is a well-developed, well-nourished in no distress at this time. HEENT: Normocephalic, atraumatic, extraocular muscles intact, oral pharynx is clear and mucous membranes are moist. Neck: supple and symmetric, trachea is midline Chest: Normal AP diameter and contour without kyphoscoliosis Lungs: Auscultation of all lung puckett are clear without adventitious sounds, wheezes, rhonchi, or rales. Cardio: regular rate and rhythm without murmur, rubs, or gallops Abdomen: S NT ND Musculoskeletal: no joint tenderness or deformity Ext: No edema or joint effusions. Skin: Warm dry and intact without rashes, ulcerations or petechiae. Neuro: Alert and orientated x3, strength is +5/5 in all extremities, sensation to touch intact, no gross deficits noted of cranial nerves. Psych: Patient has a well-kept appearance, appropriate affect, mental status attitude thought context and judgment are appropriate for age. Objective Labs Result Diagrams: 06/21/22 12:04 06/21/22 05:30 Labs: Laboratory Results - last 24 hr 06/20/22 06/21/22 06/21/22 17:50 05:30 05:30 WBC 5.0 RBC 2.74 L Hgb 8.1 L 7.7 L Hct 24.3 L 23.1 L MCV 84.3 MCH 28.1 MCHC 33.3 RDW 19.7 H Plt Count 264 Neut % (Auto) 84.8 H Lymph % (Auto) 3.4 L Tift % (Auto) 10.1 Eos % (Auto) 1.3 L Baso % (Auto) 0.4 Neut # (Auto) 4300 Lymph # (Auto) 200 L Tift # (Auto) 500 Eos # (Auto) 100 Baso # (Auto) 0 Sodium 138 Potassium 4.0 Chloride 106 Carbon Dioxide 28 BUN 26 H Creatinine 0.84 Estimated GFR > 60 BUN/Creatinine Ratio 31.0 H Glucose 92 Calcium 8.1 L Magnesium Total Bilirubin 0.6 AST 21 ALT 20 Alkaline Phosphatase 79 Total Protein 6.1 L Albumin 2.7 L Globulin 3.4 Albumin/Globulin Ratio 0.8 L 06/21/22 06/21/22 05:30 12:04 WBC RBC Hgb 8.3 L Hct 25.3 L MCV MCH MCHC RDW Plt Count Neut % (Auto) Lymph % (Auto) Tift % (Auto) Eos % (Auto) Baso % (Auto) Neut # (Auto) Lymph # (Auto) Tift # (Auto) Eos # (Auto) Baso # (Auto) Sodium Potassium Chloride Carbon Dioxide BUN Creatinine Estimated GFR BUN/Creatinine Ratio Glucose Calcium Magnesium 1.9 Total Bilirubin AST ALT Alkaline Phosphatase Total Protein Albumin Globulin Albumin/Globulin Ratio [facility] Medical History Anticoagulated Asthma (11/04/11) Atrial flutter (03/20/17) Benign prostatic hyperplasia (11/04/11) Body mass index (BMI) of 30.0 to 39.9 (10/27/11) BPH w urinary obs/LUTS Controlled type 2 diabetes mellitus (10/03/16) Diabetes Diverticulosis of sigmoid colon (03/20/17) Elevated PSA Elevated PSA Essential hypertension (10/27/11) Family history of prostate cancer Gastroesophageal reflux disease (03/01/14) History of primary bladder cancer History of primary bladder cancer History of UTI HLD (hyperlipidemia) Hyperlipidemia (10/27/11) Hypothyroid Lower urinary tract symptoms (LUTS) Malignant neoplasm of urinary bladder (10/11/16) Melena Mild cognitive impairment Neoplasm of uncertain behavior of bladder Osteoarthritis Persistent atrial fibrillation Prostate cancer RBBB plus LA hemiblock Tubular adenoma of colon (03/20/17) Surgical History History of appendectomy History of cardiac radiofrequency ablation History of cystoscopy History of knee surgery Hx of rotator cuff surgery Family History Father CAD (coronary artery disease) Hyperlipidemia Hypertension Hearing impairment Mother CAD (coronary artery disease) Hypertension Hyperlipidemia Cancer Social History marital status: household members: spouse occupational status: previously employed Smoking Status: Never smoker alcohol intake: never substance use type: does not use caffeine: Yes Discharge Plan Discharge Plan Patient Disposition: SNF Provider Discharge Comment: Leandro Allen is 77-year-old male nonsmoker with history of prior?high-grade prostate adenocarcinoma, bladder tumor, COPD, Asthma, GERD, diverticulitis, diverticulosis, KIRA, atrial flutter, AFib on? (chronic?Xarelto, plavix, asa),?hypothyroidism, hyperlipidemia, BPH with lower urinary OBS, yumiko nary artery disease (stents x6 2021), normcytic anemia, GI bleed 2020 who presented to the ED with a chief complaint of dark and tarry stool for the past week or so.? Admitted for GI bleed and acute blood loss anemia. He received a transfusion with improvement in his hemoglobin and hematocrit. He had an EGD which showed mild gastritis, no ulcer. After EGD, his h/h remained stable. His bowel movements had returned to normal. He is recommended to continue on protonix 40 mg PO BID for 1 month, then daily for at least 3 months, presumably longer given his history. His plavix and xarelto are also recommended to be held for at least 1 week. Can resume plavix in 1 week given recent cardiac interven tion, but would continue to check h/h every few weeks. Consider outpatient colonoscopy as well with PCP. I certify the postop hospital [facility] care is medically necessary on a continuing basis for any conditions for which he/ she received care during this hospitalization.: Yes The receiving facility has agreed to accept transfer and provide medical treatment.: Yes Discharge orders & Medications Prescriptions: New pantoprazole 40 mg tablet,delayed release (DR/EC) 40 mg PO BID 30 Days Qty: 60 0RF Continued lovastatin 40 MG tablet 40 mg PO Q DAY Qty: 90 3RF levothyroxine 75 mcg Capsule 75 mcg PO DAILY potassium chloride [K-Tab] 20 mEq tablet extended release 40 meq PO DAILY Qty: 4 0RF tamsulosin [Flomax] 0.4 MG capsule 0.4 mg PO QPM multivitamin Tablet 1 tab PO DAILY torsemide 20 mg Tablet 20 mg DAILY enalapril maleate 5 MG tablet 10 mg PO QDAY Rx Instructions: Hold for SBP<105 metoprolol succinate 25 mg Tablet Extended Release 24 Hr 25 mg PO DAILY Rx Instructions: 25mg AM 12.5mg pm metoprolol succinate 25 mg Tablet Extended Release 24 Hr 12.5 mg PO BEDTIME Qty: 30 0RF Rx Instructions: Hold for SBP<105 or HR<55 aspirin 81 mg capsule 81 mg PO DAILY Qty: 30 0RF liothyronine 5 mcg tablet 10 mcg PO DAILY amiodarone 200 mg tablet 100 mg PO QPM finasteride 5 mg tablet 5 mg PO DAILY Qty: 90 3RF Discontinued clopidogrel 75 mg Tablet 75 mg PO DAILY Xarelto 20 mg Tablet 20 mg PO DAILY Rx Instructions: must administer with evening meal Follow up/Referrals: Leatha Bentley DO [Primary Care Provider] - Discharge Health Status Multidrug resistant organism: No MDRO Precautions: [place] Diet/Activity/Treatments Diet: Diet as Tolerated and Low-sodium Liquid consistency: Normal/Thin Food texture: Regular Diet comment: Heart healthy / acid reducing diet Activity: As tolerated Visit Report/Discharge Packet Instructions: DI for Gastric Ulcer, GERD Diet Discharge Data Primary Care Provider: Leatha Bentley Attending Provider: Toya Martel VTE Deep Vein Thrombosis/Pulmonary Embolism Present on Admission: No
--- NOTE | 2022-06-21 13:00 | OT.IP.EVAL ---
Current Diagnoses Gastrointestinal hemorrhage, unspecified (06/19/22) Surgery Performed Operation Date: 06/20/22 17:15 Actual Procedures p Esophagogastroduodenoscopy - Rogelio Ludwig MD Past Medical History (Last Reviewed 06/20/22 @ 22:21 by Rogelio Ludwig MD) Anticoagulated Asthma (11/04/11) Atrial flutter (03/20/17) Benign prostatic hyperplasia (11/04/11) Body mass index (BMI) of 30.0 to 39.9 (10/27/11) BPH w urinary obs/LUTS Controlled type 2 diabetes mellitus (10/03/16) Diabetes Diverticulosis of sigmoid colon (03/20/17) Elevated PSA Elevated PSA Essential hypertension (10/27/11) Family history of prostate cancer Gastroesophageal reflux disease (03/01/14) History of primary bladder cancer History of primary bladder cancer History of UTI HLD (hyperlipidemia) Hyperlipidemia (10/27/11) Hypothyroid Lower urinary tract symptoms (LUTS) Malignant neoplasm of urinary bladder (10/11/16) Melena Mild cognitive impairment Neoplasm of uncertain behavior of bladder Osteoarthritis Persistent atrial fibrillation Prostate cancer RBBB plus LA hemiblock Tubular adenoma of colon (03/20/17) Surgical History (Last Reviewed 06/20/22 @ 22:21 by Rogelio Ludwig MD) History of appendectomy History of cardiac radiofrequency ablation History of cystoscopy History of knee surgery Hx of rotator cuff surgery Occupational Therapy Inpatient Evaluation/Re-Eval M1 PT/OT-IP Prior Functional Status Start: 06/21/22 13:06 Freq: NEEDED Status: Active Protocol: Document 06/21/22 13:08 [facility] (Rec: 06/21/22 13:30 [facility] [id number]) Medical Review Prior Functional Status Communication independent Mobility and Gait Has been using a FWW at [facility]. Activities of Daily Living and IADL's Pt states able to dress himself at [facility] but still needing assist for showers per pt. Social History Household Members spouse Living Arrangements House Number of Stairs To Enter/Railing? no steps Home Environment Standard Height Toilet,Walk in Shower,Tub/Shower Home Equipment Front Wheel Walker,Manual Wheelchair,Grab Bars In Shower Additional Social History Comment Pt able to assist but unable to lift the pt as he has been having multiple falls at home. M2 OT-IP Current Condition Start: 06/21/22 13:06 Freq: Status: Active Protocol: Document 06/21/22 13:08 [facility] (Rec: 06/21/22 13:30 [facility] [id number]) Occupational Therapy Current Condition Current Condition Evaluation Date 06/21/22 Treatment Diagnosis Acute GI bleed Diagnosis Onset Date 06/19/22 M3 OT- IP Subjective and Pain Start: 06/21/22 13:06 Freq: Status: Active Protocol: Document 06/21/22 13:08 [facility] (Rec: 06/21/22 13:30 [facility] [id number]) OT- Subjective Occupational Therapy Visit Type Type Initial Evaluation Visit Start Time 12:00 Visit Stop Time 12:27 Total Visit Minutes 27 Occupational Therapy Visit Comments Patient Comments Pt needing encouragement, but then agreed to get up to the recliner for lunch. Patient/Caregiver Goals To go home, pt's insistent on pt going back to skilled rehab. OT Pain Assessment Pain When Pain Assessed At Rest Pain Present Pain Present Pain Reported Location Abdomen Pain Behaviors Holding Area M4 OT- IP ADL's Start: 06/21/22 13:06 Freq: Status: Active Protocol: Document 06/21/22 13:08 [facility] (Rec: 06/21/22 13:30 [facility] [id number]) OT [id number] General Evaluation Self-Feeding Ability Independent OT ADL-Grooming Comments OT Grooming Comments Pt refused. OT ADL-Oral Care Comments Oral Care Comments Pt refused. OT ADL-Dressing Comments OT Dressing Comments Pt refused to do at this time. OT ADL-Toileting Comments OT Toileting Comments Pt states used the toilet prior with nursing aid. OT ADL-Bathing Comments OT Bathing Comments Not performed. M5 OT- IP IADL's Start: 06/21/22 13:06 Freq: Status: Active Protocol: Document 06/21/22 13:08 [facility] (Rec: 06/21/22 13:30 [facility] [id number]) OT-Instrumental Activities of Daily Living Deficits IADL Deficits Identified Deficits Medication Management Medication Management Caregiver Administers Money Management Money Management Caregiver Provides Assistance Meal Preparation Meal Preparation Caregiver Provides Assist Net Application Support Specialist Net Application Support Specialist Caregiver Provides Assist M6 OT- IP Functional Cognition Start: 06/21/22 13:06 Freq: Status: Active Protocol: Document 06/21/22 13:08 [facility] (Rec: 06/21/22 13:30 [facility] [id number]) Cognitive Factors Limiting Selfcare Function Cognitive Ability Level of Alertness Alert Patient Orientation Name,Place,Situation Attention Span Ability Capable of Focused Attention, Capable of Sustained Attention Ability to Follow Commands Able to Follow One Step Commands Memory Description Short Term Impaired Safety Awareness Underestimates Need for Assistance Cognitive Comments Cognitive Assessment Comments Pt able to follow commands for mobility and ADl needs. Pt needing vc for safety awareness to have the FWW in front of him at all times. Per has noted pt overall has been declining in cognition especially as he has been having multiple falls. OT- Vision and Hearing OT- Hearing Assessment OT- Hearing Assessment Hearing Impaired OT- Vision Assessment Vision Assessment Comments At times pt a bit hard of hearing. Able to read the clock appropriately. M7 OT- IP Mobility and Balance Start: 06/21/22 13:06 Freq: Status: Active Protocol: Document 06/21/22 13:08 [facility] (Rec: 06/21/22 13:30 [facility] [id number]) OT- Bed Mobility Assessment Rolling Level of Assistance Standby Assistance Supine to Sit Supine to Sit Assist Standby Assistance OT-Transfer Assessment Sit to and From Stand Sit to and from Stand Standby Assistance Transfers Transfer Ability Standby Assistance,Contact Guard Assistance Technique Transfer Destination Bed,Chair Transfer Technique Stand Step Pivot Devices Transfer Assistive Devices Gait Belt,Front Wheeled Walker Comments Mobility Comments SBA for bed mobility and able to stand to FWW with close SBA to CGA and pt needing cues to keep the FWW in front of him at all times. BP supine 106/53 , sitting 108/41, and standing 114/50. OT- Balance Assessment Sitting Balance and Reactions Static Sitting Balance Ability Good Standing Balance and Reactions Static Standing Balance Ability Fair M8 OT- IP Objective Assessments Start: 06/21/22 13:06 Freq: Status: Active Protocol: Document 06/21/22 13:08 [facility] (Rec: 06/21/22 13:30 [facility] [id number]) OT Gross Range of Motion Upper Extremity Range of Motion ROM Impairments grossly WFL OT-Muscle Tone Assessment Muscle Tone WNL Yes M9 OT- IP Assessment and Plan Start: 06/21/22 13:06 Freq: Status: Active Protocol: Document 06/21/22 13:08 [facility] (Rec: 06/21/22 13:30 [facility] [id number]) OT Summary Assessment and Plan Potential Rehabilitation Potential Fair Analytic Complexity at Evaluation Low Summary OT Impairments Balance,Dressing,Toileting, Bathing,Toilet Transfers, Shower Transfers,Activity Tolerance Progress Towards Goals Slow Progress due to Medical Issues Assessment Summary Pt low complexity and main issues are decreased dynamic balance and has had multiple falls and is a high fall risk. Pt's insistent pt go back to skilled rehab. Goals Grooming Goal Independent Dressing Goal Independent Toileting Goal Independent Bathing Goal Independent Toilet Transfer Goal Independent Shower Transfer Goal Independent Patient/Caregiver Education Goal Demonstrate Energy Conservation and Pacing Days to Meet Goals 15 Frequency of Treatment Frequency Of Treatment Once a Day Treatment Plan OT Treatment Plan ADL Training,Functional Cognition Training,Functional Mobility,Patient/Family Education,Discharge Planning Discharge Recommendations OT Discharge Recommendations SNF Rehab Transportation Needs at Discharge Wheelchair/Cabulance
--- NOTE | 2022-06-21 13:17 | PT-IP ANOTE ---
call or contact centre manager reports no eval needed since pt is returning to [facility] today.
--- NOTE | 2022-06-21 14:02 | PC.NURSE ---
Addendum entered by Homer Dan R.N. 06/21/22 14:09: Pt Spoouse in room when Dr Billy talked to Pt. Spouse also helped with Pts belongings (CPAP device and other items). Addendum entered by Ibis Javed R.N. 06/21/22 14:08: Pt left floor at 1400 Original Note: Day shift Pt left via wheel chair with SNF transport, all paperwork placed inside SNF packet, all Pt personal possessions are given to person. Earlier today Pt did not want to transfer to SNF, Pt spoke with Dr Billy and then agreed to transfer to SNF.
== END 2022-06-21 14:11 ==
LOC: ED 19:17 → AC 20:36
PROVIDERS: Internal Medicine; Surgery; Admitting Provider Nurse Practitioner Family; Emergency Provider Emergency Medicine; PCP Student in an Organized Health Care Education/Training Program; Referring Provider Emergency Medicine; Visit Provider Nurse Practitioner Family
PROC: 0DJ08ZZ Inspection of Upper Intestinal Tract, Via Natural or Artificial Opening Endoscopic (ICD-10-PCS; CPT 43235; principal; 2022-06-20 17:15)
DX: K29.50 Unspecified chronic gastritis without bleeding (principal); I13.0 Hypertensive heart and chronic kidney disease with heart failure and stage 1 through stage 4 chronic kidney disease, or unspecified chronic kidney disease; E11.22 Type 2 diabetes mellitus with diabetic chronic kidney disease; N18.30 Chronic kidney disease, stage 3 unspecified; I50.32 Chronic diastolic (congestive) heart failure; C61 Malignant neoplasm of prostate; I48.91 Unspecified atrial fibrillation; Z79.01 Long term (current) use of anticoagulants; J44.9 Chronic obstructive pulmonary disease, unspecified; K21.9 Gastro-esophageal reflux disease without esophagitis; G47.33 Obstructive sleep apnea (adult) (pediatric); E03.9 Hypothyroidism, unspecified; I25.10 Atherosclerotic heart disease of native coronary artery without angina pectoris; D64.9 Anemia, unspecified; N40.0 Benign prostatic hyperplasia without lower urinary tract symptoms; E78.5 Hyperlipidemia, unspecified; Z20.822 Contact with and (suspected) exposure to COVID-19
CPT/HCPCS: 43235; 36415; 36430; 80053; 82962; 83036; 83735; 85014; 85018; 85025; 85610; 85730; 86850; 86900; 86901; 87635; 93005; 96361; 96372; 96374; 96376; 97165; 99224; 99284; C9803; G0378; P9016; C9113; J1815; J2704

== ENCOUNTER 2022-07-12 13:25 | Inpatient (IN) | payer MEDICARE, SELFPAY ==
[2022-06-19 20:51] VITALS: BMI 29.7
[2022-07-12] VITALS (12 sets, daily range): BP systolic 83–104; BP diastolic 49–62; PULSE 64–89; RESP 14–23; TEMP 35.6–36.9; O2SAT 98–100; BMI 29.4; BMI 27.8
[2022-07-12 14:20] LABS: INR 2.6 (0.9-1.3); Prothrombin Time 30.7 SECONDS (10.1-12.7)
[2022-07-12 14:23] LABS: PTT Partial Thromboplastin Tim 40 SECONDS (26-36)
[2022-07-12 14:25] LABS: Add Manual Diff / Slide Review NO; Basophils Absolute Auto 0 /uL (0-100); Basophils Percent Auto 0.2 % (0-2); Eosinophils Absolute Auto 0 /uL (0-450); Eosinophils Percent Auto 0.7 % (2-4); Hematocrit 23.3 % (41-53); Hemoglobin 7.7 g/dL (13.5-17.5); Lymphocytes Absolute Auto 400 /uL (1100-4500); Lymphocytes Percent Auto 5.8 % (25-40); Mean Corpuscular HGB Conc 33.1 % (30-36); Mean Corpuscular Hemoglobin 28.2 PG (26-34); Mean Corpuscular Volume 85.4 fL (80-100); Monocytes Absolute Auto 600 /uL (0-900); Monocytes Percent Auto 10.2 % (3-14); Neutrophils Absolute Auto 5100 /uL (1500-7000); Neutrophils Percent Auto 83.1 % (50-75); Platelet Count 280 X10^3/uL (150-400); Red Blood Cell Count 2.73 X10^6/uL (4.5-5.9); Red Cell Distribution Width 18.1 % (11.6-14.8); White Blood Cell Count 6.1 X10^3/uL (4.5-11.0)
--- NOTE | 2022-07-12 14:28 | ED_ITS ---
HPI - GI Bleed General Chief complaint: GI Bleed Stated complaint: Bleedind from rectum Time Seen by Provider: 07/12/22 13:57 History of Present Illness HPI Narrative: 77-year-old gentleman with a history of prior gastric ulcer and get upper GI bleeding admitted to the hospitalist service with upper endoscopy on June 21, concurrent history of prostate cancer, atrial fibrillation and has resumed his Xarelto and Plavix but not his aspirin, COPD/asthma and sleep apnea presents with rectal bleeding. He describes stool the color and consistency of black tarry jam with bright red blood mixed in as well. He does not describe abdominal pain or nausea. He has not had any vomiting. He does not complain that he is dizzy, lightheaded, short of breath or having chest pain or palpi tations. He does note that he has of procedure later this week that ?goes down my throat? it is unclear whether he is talking about a upper endoscopy it sounds like he may be describing a a transesophageal echo as part of a cardiology workup. Related Data Home Medications Medication Instructions Recorded Confirmed liothyronine 5 mcg tablet 10 mcg PO DAILY 04/18/19 07/12/22 levothyroxine 75 mcg capsule 75 mcg PO DAILY 01/12/20 07/12/22 tamsulosin 0.4 mg capsule (Flomax) 0.4 mg PO QPM 10/19/20 07/12/22 amiodarone 200 mg tablet 100 mg PO QPM 12/17/21 07/12/22 metoprolol succinate 25 mg 25 mg PO DAILY 12/29/21 07/12/22 tablet,extended release 24 hr enalapril maleate 5 mg tablet 10 mg PO QDAY 05/29/22 07/12/22 multivitamin 1 tab PO DAILY 05/29/22 07/12/22 torsemide 20 mg tablet 20 mg DAILY 05/29/22 07/12/22 Previous Rx's Medication Instructions Recorded lovastatin 40 mg tablet 40 mg PO Q DAY #90 tabs 03/04/17 finasteride 5 mg tablet 5 mg PO DAILY #90 tabs 03/06/21 aspirin 81 mg capsule 81 mg PO DAILY #30 caps 04/18/22 metoprolol succinate 25 mg 12.5 mg PO BEDTIME #30 tabs 04/18/22 tablet,extended release 24 hr potassium chloride 20 mEq 40 meq PO DAILY #4 tabs 05/15/22 tablet,extended release (K-Tab) pantoprazole 40 mg tablet,delayed 40 mg PO BID 30 days #60 tabs 06/21/22 release Allergies Allergy/AdvReac Type Severity Reaction Status Date / Time latex Allergy Verified 06/19/22 17:50 Review of Systems Review of Systems Narrative: Remainder of complete review of systems is otherwise unremarkable except for th at included in the HPI. Patient History Medical History Anticoagulated Asthma (11/04/11) Atrial flutter (03/20/17) Benign prostatic hyperplasia (11/04/11) Body mass index (BMI) of 30.0 to 39.9 (10/27/11) BPH w urinary obs/LUTS Controlled type 2 diabetes mellitus (10/03/16) Diabetes Diverticulosis of sigmoid colon (03/20/17) Elevated PSA Elevated PSA Essential hypertension (10/27/11) Family history of prostate cancer Gastroesophageal reflux disease (03/01/14) History of primary bladder cancer History of primary bladder cancer History of UTI HLD (hyperlipidemia) Hyperlipidemia (10/27/11) Hypothyroid Lower urinary tract symptoms (LUTS) Malignant neoplasm of urinary bladder (10/11/16) Melena Mild cognitive impairment Neoplasm of uncertain behavior of bladder Osteoarthritis Persistent atrial fibrillation Prostate cancer RBBB plus LA hemiblock Tubular adenoma of colon (03/20/17) Surgical History History of appendectomy History of cardiac radiofrequency ablation History of cystoscopy History of knee surgery Hx of rotator cuff surgery Family History Father CAD (coronary artery disease) Hyperlipidemia Hypertension Hearing impairment Mother CAD (coronary artery disease) Hypertension Hyperlipidemia Cancer Social History marital status: household members: spouse occupational status: previously employed Smoking Status: Never smoker alcohol intake: never substance use type: does not use caffeine: Yes Smoking Status: Never smoker alcohol intake frequency: 0-2 drinks per day Substance Use Type: does not use Exam Initial Vital Signs Initial Vital Signs: Vital Signs Temperature 96.1 F L 07/12/22 13:38 Pulse Rate 74 07/12/22 13:38 Respiratory Rate 20 07/12/22 13:38 Blood Pressure 83/53 L 07/12/22 13:38 Pulse Oximetry 100 07/12/22 13:38 Oxygen Delivery Method 07/12/22 13:38 General: Pale but in no acute distress. Able to give a complete and coherent history. Well-nourished well-developed HEENT: Moist mucous membranes, normal sclera with reactive pupils, Neck: No JVD, supple Respiratory: Lungs are clear to auscultation, no wheezing no rales no rhonchi. Full and symmetrical air movement Cardiac: Regular rate and rhythm no murmurs no bruits Abdomen: Soft, nontender, good bowel tones, no flank pain Rectal exam: Bright red blood and dark guaiac-positive stool staining his brief Skin: Warm and dry, no rashes Neurologic: Globally weak but Grossly neurologically intact with no obvious asymmetries or abnormalities Extremities: No trauma, well perfused Psych: Cooperative, appropriate insight and affect Course Orders Ordered: ED Orders 07/12/22 13:53 EKG-12 Lead Stat 07/12/22 14:00 Complete Blood Count AUTO DIFF Stat Comprehensive Metabolic Panel Stat Partial Thromboplastin Time Stat Prothrombin Time INR Stat Type and Screen Stat transfuse [Packed Cells] Stat 07/12/22 15:00 COVID19 -Nasal RAPID/Pre-Proc Stat Acetaminophen (Acetaminophen 325 Mg Tablet) 650 mg PO Q6HR PRN PRN Reason: Fever/Mild Pain (1-3) Amiodarone HCl (Amiodarone 200 Mg Tablet) 100 mg PO QPM [facility] Atorvastatin Calcium (Atorvastatin 20 Mg Tablet) 10 mg PO DAILY [facility] Finasteride (Finasteride 5 Mg Tablet) 5 mg PO DAILY [facility] Liothyronine Sodium (Liothyronine 5 Mcg Tablet) 10 mcg PO DAILY [facility] Pantoprazole Sodium (Pantoprazole 40 Mg Vial) 40 mg IV BID [facility] Tamsulosin HCl (Tamsulosin 0.4 Mg Capsule) 0.4 mg PO QPM [facility] Discontinued Medications Amiodarone HCl (Amiodarone 200 Mg Tablet) 100 mg PO QPM [facility] Last Admin: 07/12/22 18:52 Dose: Not Given Documented By: CC Pantoprazole Sodium (Pantoprazole 40 Mg Vial) 80 mg IV NOW ONE Stop: 07/12/22 15:01 Last Admin: 07/12/22 15:16 Dose: 80 mg Documented By: DINAH Tamsulosin HCl (Tamsulosin 0.4 Mg Capsule) 0.4 mg PO QPM [facility] Last Admin: 07/12/22 18:52 Dose: Not Given Documented By: CC Vital Signs Vital signs: Vital Signs - 8 hr 07/12/22 13:38 07/12/22 14:58 07/12/22 15:00 Temperature 96.1 F L Pulse Rate 74 80 Respiratory Rate 20 Blood Pressure 83/53 L 104/56 L Pulse Oximetry 100 99 Oxygen Delivery Method Room Air 07/12/22 15:00 07/12/22 15:30 07/12/22 15:30 Temperature Pulse Rate 78 72 Respiratory Rate 17 18 Blood Pressure 99/57 L Pulse Oximetry 99 99 Oxygen Delivery Method 07/12/22 16:00 07/12/22 16:00 Temperature Pulse Rate 69 Respiratory Rate 23 Blood Pressure 104/55 L Pulse Oximetry 98 Oxygen Delivery Method MDM - GI Bleed Lab Data Result diagrams: 07/12/22 14:00 07/12/22 14:00 Labs: Lab Results 07/12/22 07/12/22 07/12/22 Range/Units 14:00 14:00 14:00 WBC 6.1 (4.5-11.0) X10^3/uL RBC 2.73 L (4.5-5.9) X10^6/uL Hgb 7.7 L (13.5-17.5) g/dL Hct 23.3 L (41-53) % MCV 85.4 (80-100) fL MCH 28.2 (26-34) PG MCHC 33.1 (30-36) % RDW 18.1 H (11.6-14.8) % Plt Count 280 (150-400) X10^3/uL Neut % (Auto) 83.1 H (50-75) % Lymph % (Auto) 5.8 L (25-40) % Christian % (Auto) 10.2 (3-14) % Eos % (Auto) 0.7 L (2-4) % Baso % (Auto) 0.2 (0-2) % Neut # (Auto) 5100 (7542-3202) /uL Lymph # (Auto) 400 L (3077-1033) /uL Christian # (Auto) 600 (0-900) /uL Eos # (Auto) 0 (0-450) /uL Baso # (Auto) 0 (0-100) /uL PT 30.7 H (10.1-12.7) SECONDS INR 2.6 H (0.9-1.3) APTT 40 H (26-36) SECONDS Sodium 136 L (137-145) mmol/L Potassium 4.8 (3.4-5.1) mmol/L Chloride 100 (98-107) mmol/L Carbon Dioxide 26 (22-32) mmol/L BUN 28 H (9-20) mg/dL Creatinine 1.02 (0.66-1.25) mg/dL Estimated GFR > 60 (>60) mL/min BUN/Creatinine Ratio 27.5 H (6-22) Glucose 104 (80-110) mg/dL Calcium 8.1 L (8.4-10.2) mg/dL Total Bilirubin 0.3 (0.2-1.3) mg/dL AST 36 (17-59) IU/L ALT 22 (<50) IU/L Alkaline Phosphatase 96 (38-126) U/L Total Protein 6.6 (6.3-8.2) g/dL Albumin 3.0 L (3.5-5.0) g/dL Globulin 3.6 (1.7-4.1) g/dL Albumin/Globulin Ratio 0.8 L (1.0-2.8) SARS-CoV-2 (PCR) (Negative) Blood Type Antibody Screen Crossmatch 07/12/22 07/12/22 Range/Units 14:00 15:00 WBC (4.5-11.0) X10^3/uL RBC (4.5-5.9) X10^6/uL Hgb (13.5-17.5) g/dL Hct (41-53) % MCV (80-100) fL MCH (26-34) PG MCHC (30-36) % RDW (11.6-14.8) % Plt Count (150-400) X10^3/uL Neut % (Auto) (50-75) % Lymph % (Auto) (25-40) % Christian % (Auto) (3-14) % Eos % (Auto) (2-4) % Baso % (Auto) (0-2) % Neut # (Auto) (1753-9354) /uL Lymph # (Auto) (4437-5673) /uL Christian # (Auto) (0-900) /uL Eos # (Auto) (0-450) /uL Baso # (Auto) (0-100) /uL PT (10.1-12.7) SECONDS INR (0.9-1.3) APTT (26-36) SECONDS Sodium (137-145) mmol/L Potassium (3.4-5.1) mmol/L Chloride (98-107) mmol/L Carbon Dioxide (22-32) mmol/L BUN (9-20) mg/dL Creatinine (0.66-1.25) mg/dL Estimated GFR (>60) mL/min BUN/Creatinine Ratio (6-22) Glucose (80-110) mg/dL Calcium (8.4-10.2) mg/dL Total Bilirubin (0.2-1.3) mg/dL AST (17-59) IU/L ALT (<50) IU/L Alkaline Phosphatase (38-126) U/L Total Protein (6.3-8.2) g/dL Albumin (3.5-5.0) g/dL Globulin (1.7-4.1) g/dL Albumin/Globulin Ratio (1.0-2.8) SARS-CoV-2 (PCR) Negative (Negative) Blood Type A Positive Antibody Screen Negative Crossmatch See Detail ECG Data Interpretation: Atrial fibrillation at a rate of 74 Right bundle branch block No acute ischemic changes MDM Narrative Medical decision making narrative: 77-year-old gentleman with recurrent episode of what appears to be recurrent GI bleeding. He has returned to taking both sural toe and Plavix some time since his discharge on June 21 with presumed upper GI bleeding. Black stool with bright red blood was noted today he does have hyperactive bowel tones and I suspect he is still having some active bleeding. He was initially hypotensive but otherwise asymptomatic. 2 units of packed red cells are ordered because of the hypotension and the bright red blood. He is otherwise minimally symptomatic. Have spoken with Dr. Perez, general surgery, who will consult. Have reviewed with Dr. Bowen who will admit the patient. Patient is informed of plans and questions are answered. Discharge Plan Departure Patient Disposition: Admitted As Inpatient Clinical Impression: Acute GI bleeding, Acute blood loss anemia Admit Date/Time: 07/12/22 16:28 Admit Provider: Silvano Bowen
[2022-07-12 14:29] LABS: Alanine Aminotransferase 22 IU/L (<50); Albumin Globulin Ratio 0.8 (1.0-2.8); Alkaline Phosphatase 96 U/L (38-126); Aspartate Aminotransferase 36 IU/L (17-59); BUN Creatinine Ratio 27.5 (6-22); Bilirubin Total 0.3 mg/dL (0.2-1.3); Blood Urea Nitrogen 28 mg/dL (9-20); Calcium 8.1 mg/dL (8.4-10.2); Carbon Dioxide 26 mmol/L (22-32); Chloride 100 mmol/L (98-107); Estimated Glomerular Filt Rate > 60 mL/min (>60); Globulin 3.6 g/dL (1.7-4.1); Glucose 104 mg/dL (80-110); HEMOLYSIS < 15 (0-50); Potassium 4.8 mmol/L (3.4-5.1); Sodium 136 mmol/L (137-145); Total Protein 6.6 g/dL (6.3-8.2)
[2022-07-12] MEDS: PANTOPRAZOLE 40 MG VIAL 80 MG IV (15:16)
[2022-07-12 15:57] LABS: COVID19 -Nasal RAPID Negative (Negative)
[2022-07-12] MEDS: AMIODARONE 200 MG TABLET 100 MG PO (22:20)
[2022-07-12] MEDS: TAMSULOSIN 0.4 MG CAPSULE PO (22:20)
[2022-07-12] MEDS: PANTOPRAZOLE 40 MG VIAL IV (22:26)
[2022-07-13] VITALS (9 sets, daily range): BP systolic 94–112; BP diastolic 49–73; PULSE 62–101; RESP 16–18; TEMP 35.7–36.6; O2SAT 93–98
--- NOTE | 2022-07-13 02:00 | P.HP_ITS ---
History of Present Illness History of Present Illness Date Patient Seen: 07/12/22 Time Patient Seen: 16:40 Chief complaint: Bleeding from rectum Narrative: Leandro Allen is 77-year-old male nonsmoker with history of prior?high-grade prostate adenocarcinoma, bladder tumor, COPD, Asthma, GERD, diverticulitis, diverticulosis, KIRA, atrial flutter, AFib on? (chronic?Xarelto, plavix, -but stopped asa),?hypothyroidism, hyperlipidemia, BPH with lower urinary OBS, coronary artery disease (stents x6 2021), CKD, normcyticanemia, GI bleed 2020 & 06/19/2022 who presented to the ED with a chief complaint of rectal bleeding that had resolved on last hospitalization, but began again approximately 1 week ago.? He describes stool the color and consistency of black tarry jam with bright red blood mixed in as well.? He denies abdominal pain, but positive nausea that comes & goes.? He has not had any vomiting.? He does not complain that he is dizzy, lightheaded, short of breath, chest pain or palpitations.? He does note that he has a procedure scheduled later this week that ?goes down my throat? it is unclear whether he is talking about a upper endoscopy, it sounds like he may be describing a a transesophageal echo as part of a cardiology mar p. He denies hematemesis, hematuria, dysuria, frequency, urgency, bleeding from gums, bleeding from any wounds, changes to medication, recent illness injury or trauma. Patient has not been seen by a GI since previous hospitalization, reported to Dr. Ludwig that he had a normal colonoscopy within the past year. Upon admit exam patient is stable resting in bed, hemodynamically stable and his 1st unit of blood is infusing, with no complaints at this time. Afebrile 98.4, BP 96/54, HR 86, R 16, O2 saturation 98%, patient currently on CPAP for KIRA. H&H on discharge 06/21/2022 8.3/25.3-today 7.7/23.3, RBC 2.73. Chemistries normal with the exception of BUN of 28 improved from baseline CKDstage 3, 06/21/22 albumin 2.7. Today's albumin 3.0. Patient's calcium 8.1, PT 30.7, INR 2.6, PTT 40, COVID negative, guaiac-positive, because patient was hypotensive in ED and guaiac-positive to units were ordered following keara and cross: A+. Patient admitted for acute blood loss anemia secondary to GI bleed. Dr. Perez general surgery to consult. ADMIT 06/19/2022temp 98.2?, mildly hypotensive BP 108/57, HR 69, tachypneic RR 33, O2 saturation 97% on room air.? RBC 2.58, HGB 7.4, HCT 21.7 MCH and MCV are WNL.? Patient's last H&H on 05/21/2022 was 8.1/24.6, mild hyponatremia sodium 134, chloride 97, BUN 33, creatinine 1.26, glucose 130, GFR 58.? 05/21/2022 BUN 29, creatinine 1.10, 05/29/22 Property Adjuster.? 1.33.? Patient's albumin is 3.1, calcium 7.8, PT is 29.6 INR is 2.6.? Reported positive Hemoccult in ED, was recommended that patient be transfused was santiago A positive, 1st unit of blood initiated in ED. Dr. Carrasquillo general surgery was consulted and agreed to take the patient for a colonoscopy tomorrow.? Patient admitted for lower GI bleed. Per Dr. Dove Oncology 02/2022: He has been having diarrhea for 3 weeks now about 5-6 times a day. He has not slept well for a long time. He is tired and exalsted. No fever and no chills. 02/28/2022 Dr. Hollingsworth did EGD/C-scope. Normla EGD exept gastric polyps. Normal ilium, diverticulosis and inflammatory chests. Bx pending. DISCHARGE SUMMARY per Dr. Billy: Leandro Allen is 77-year-old male nonsmoker with history of prior?high-grade prostate adenocarcinoma, bladder tumor, COPD, Asthma, GERD, diverticulitis, diverticulosis, KIRA, atrial flutter, AFib on? (chronic?Xarelto, plavix, asa),?hypothyroidism, hyperlipidemia, BPH with lower urinary OBS, coronary artery disease (stents x6 2021), normcytic anemia, GI bleed 2020 who presented to the ED with a chief complaint of dark and tarry stool for the past week or so.? Admitted for GI bleed and acute blood loss anemia. He received a transfusion with improvement in his hemoglobin and hematocrit. He had an EGD which showed mild gastritis, no ulcer. After EGD, his h/h remained stable. His bowel movements had returned to normal. He is recommended to continue on protonix 40 mg PO BID for 1 month, then daily for at least 3 months, presumably longer given his history. His plavix and xarelto are also recommended to be held for at least 1 week. Can resume plavix in 1 week given recent cardiac intervention, but would continue to check h/h every few weeks. Consider outpatient colonoscopy as well with PCP. Patient History Medical History Anticoagulated Asthma (11/04/11) Atrial flutter (03/20/17) Benign prostatic hyperplasia (11/04/11) Body mass index (BMI) of 30.0 to 39.9 (10/27/11) BPH w urinary obs/LUTS Controlled type 2 diabetes mellitus (10/03/16) Diabetes Diverticulosis of sigmoid colon (03/20/17) Elevated PSA Elevated PSA Essential hypertension (10/27/11) Family history of prostate cancer Gastroesophageal reflux disease (03/01/14) History of primary bladder cancer History of primary bladder cancer History of UTI HLD (hyperlipidemia) Hyperlipidemia (10/27/11) Hypothyroid Lower urinary tract symptoms (LUTS) Malignant neoplasm of urinary bladder (10/11/16) Melena Mild cognitive impairment Neoplasm of uncertain behavior of bladder Osteoarthritis Persistent atrial fibrillation Prostate cancer RBBB plus LA hemiblock Tubular adenoma of colon (03/20/17) Surgical History History of appendectomy History of cardiac radiofrequency ablation History of cystoscopy History of knee surgery Hx of rotator cuff surgery Family & Social History Family History Father CAD (coronary artery disease) Hyperlipidemia Hypertension Hearing impairment Mother CAD (coronary artery disease) Hypertension Hyperlipidemia Cancer Social History: household members spouse Prior Living Arrangements House Tobacco & Substance use: Smoking Status Never smoker alcohol intake never alcohol intake frequency 0-2 drinks per day Substance Use Type does not use Meds Home Medications and Allergies Home Medications Medication Instructions Recorded Confirmed Type lovastatin 40 mg tablet 40 mg PO Q DAY #90 tabs 03/04/17 07/12/22 Rx liothyronine 5 mcg tablet 10 mcg PO DAILY 04/18/19 07/12/22 History levothyroxine 75 mcg capsule 75 mcg PO DAILY 01/12/20 07/12/22 History tamsulosin 0.4 mg capsule (Flomax) 0.4 mg PO QPM 10/19/20 07/12/22 History finasteride 5 mg tablet 5 mg PO DAILY #90 tabs 03/06/21 07/12/22 Rx amiodarone 200 mg tablet 100 mg PO QPM 12/17/21 07/12/22 History metoprolol succinate 25 mg 25 mg PO DAILY 12/29/21 07/12/22 History tablet,extended release 24 hr aspirin 81 mg capsule 81 mg PO DAILY #30 caps 04/18/22 07/12/22 Rx metoprolol succinate 25 mg 12.5 mg PO BEDTIME #30 tabs 04/18/22 07/12/22 Rx tablet,extended release 24 hr potassium chloride 20 mEq 40 meq PO DAILY #4 tabs 05/15/22 07/12/22 Rx tablet,extended release (K-Tab) enalapril maleate 5 mg tablet 10 mg PO QDAY 05/29/22 07/12/22 History multivitamin 1 tab PO DAILY 05/29/22 07/12/22 History torsemide 20 mg tablet 20 mg DAILY 05/29/22 07/12/22 History pantoprazole 40 mg tablet,delayed 40 mg PO BID 30 days #60 tabs 06/21/22 07/12/22 Rx release Allergies Allergy/AdvReac Type Severity Reaction Status Date / Time latex Allergy Verified 06/19/22 17:50 Review of Systems Review of Systems Narrative: All 12 point systems reviewed with the patient and are negative except otherwise documented. Exam Vital Signs (past 8 hours): - 07/12/22 20:23 07/12/22 20:40 07/12/22 20:49 Temperature 97.6 F 96.2 F L 96.2 F L Pulse Rate 89 75 75 Respiratory Rate 14 16 18 Blood Pressure 91/62 95/54 L 95/54 L Pulse Oximetry 98 Oxygen Delivery Method Oxygen Flow Rate 07/12/22 23:25 07/12/22 23:38 07/12/22 20:10 Temperature 97.0 F L 97.0 F L Pulse Rate 65 65 Respiratory Rate 18 18 Blood Pressure 99/59 L 99/59 L Pulse Oximetry Oxygen Delivery Method Room Air CPAP Oxygen Flow Rate 07/13/22 00:00 07/12/22 23:53 07/13/22 00:40 Temperature 97.4 F L 97.4 F L 96.2 F L Pulse Rate 64 64 62 Respiratory Rate 16 16 17 Blood Pressure 94/49 L 94/49 L 99/68 Pulse Oximetry 97 97 Oxygen Delivery Method Oxygen Flow Rate 0 0 Oxygen Delivery Method Room Air,CPAP Oxygen Flow Rate 0 Narrative Exam Narrative: General:? Patient is a well-developed, well-nourished in no distress at this time. HEENT:? Normocephalic, atraumatic, extraocular muscles intact, oral pharynx is clear and mucous membranes are moist.? Neck is supple and symmetric, trachea is midline, no adenopathy, no thyroid enlargement, nontender, no masses palpated.? Negative for JVD Chest:? Normal AP diameter and contour without kyphoscoliosis, no nasal flaring, retractions, or tachypneic labored Lungs:? Auscultation of all lung puckett are clear without adventitious sounds, wheezes, rhonchi, or rales. Cardio:? S1 & S2 with regular rate and rhythm without murmur, rubs, or gallops, no carotid bruit, no cardiac pulsations present. Abdomen:? Soft nontender, negative for organomegaly, or masses.? Bowel sounds are present in all 4 quadrants without guarding or rebound, no CVA tenderness. Musculoskeletal:? Muscle strength and tone are equal within normal limits, no deformity, crepitus, effusions, cyanosis, clubbing or edema present.? Full range of motion intact radial and pedal pulses are normal. Skin:? Warm dry and intact without rashes, ulcerations or petechiae.? Neuro:? Alert and orientated x3, strength is +5/5 in all extremities, sensation to touch intact, no gross deficits noted of cranial nerves. Psych:? Patient has a well-kept appearance, appropriate affect, mental status attitude thought context and judgment are appropriate for age. Objective Labs Result Diagrams: 07/12/22 14:00 07/12/22 14:00 Labs: Laboratory Results - last 24 hr 07/12/22 07/12/22 07/12/22 14:00 14:00 14:00 WBC 6.1 RBC 2.73 L Hgb 7.7 L Hct 23.3 L MCV 85.4 MCH 28.2 MCHC 33.1 RDW 18.1 H Plt Count 280 Neut % (Auto) 83.1 H Lymph % (Auto) 5.8 L Meagher % (Auto) 10.2 Eos % (Auto) 0.7 L Baso % (Auto) 0.2 Neut # (Auto) 5100 Lymph # (Auto) 400 L Meagher # (Auto) 600 Eos # (Auto) 0 Baso # (Auto) 0 PT 30.7 H INR 2.6 H APTT 40 H Sodium 136 L Potassium 4.8 Chloride 100 Carbon Dioxide 26 BUN 28 H Creatinine 1.02 Estimated GFR > 60 BUN/Creatinine Ratio 27.5 H Glucose 104 Calcium 8.1 L Total Bilirubin 0.3 AST 36 ALT 22 Alkaline Phosphatase 96 Total Protein 6.6 Albumin 3.0 L Globulin 3.6 Albumin/Globulin Ratio 0.8 L SARS-CoV-2 (PCR) Blood Type Antibody Screen Crossmatch 07/12/22 07/12/22 14:00 15:00 WBC RBC Hgb Hct MCV MCH MCHC RDW Plt Count Neut % (Auto) Lymph % (Auto) Meagher % (Auto) Eos % (Auto) Baso % (Auto) Neut # (Auto) Lymph # (Auto) Meagher # (Auto) Eos # (Auto) Baso # (Auto) PT INR APTT Sodium Potassium Chloride Carbon Dioxide BUN Creatinine Estimated GFR BUN/Creatinine Ratio Glucose Calcium Total Bilirubin AST ALT Alkaline Phosphatase Total Protein Albumin Globulin Albumin/Globulin Ratio SARS-CoV-2 (PCR) Negative Blood Type A Positive Antibody Screen Negative Crossmatch See Detail Assessment & Plan Assessment & Plan narrative: Leandro Allen is 77-year-old male nonsmoker with history of prior?high-grade prostate adenocarcinoma, bladder tumor, COPD, Asthma, GERD, diverticulitis, diverticulosis, KIRA, atrial flutter, AFib on? (chronic?Xarelto, plavix) has since stopped ASA, hypothyroidism, hyperlipidemia, BPH with lower urinary OBS, coronary artery disease (stents x6 2021), normcytic anemia, GI bleed 2020 who presented to the ED with a chief complaint recurrence of dark and tarry stool for the past week or so following hospitalization on June 19, 2022 for the same condition.? Admitted for acute blood loss anemia secondary to lower GI bleed, packed red blood cells initiated in ED for transfusion, Dr. Perez general surgery to consult tomorrow. 1. Acute blood loss anemia, secondary to Lower GI bleed, recurrent, acute, in a patient with chronic anticoagulation Plavix, Xarelto), with a history of GI bleed, diverticulitis, diverticulosis, chronic, present on admission-patient is stable at this time. -Admit H&H 7.7/23.3, guaiac-positive -holding all anticoagulation anti-platelet therapy- and VTE prophylaxis -Per Dr. Dove Oncology 02/2022 Noted : The Patient had been having diarrhea for 3 weeks, about 5-6 times a day. He has not slept well for a long time. He is tired and exalsted. No fever and no chills. 02/28/2022 Dr. Hollingsworth did EGD/C-scope. Normla EGD exept gastric polyps. Normal ilium, diverticulosis and inflammatory chests. Bx pending. Patient is a poor historian scopes may have been done at the [facility]. Dr. Ludwig EGD on 06/20/2022: Gastritis -consult for Dr. Perez placed -patient typed and cross: A positive- Unit 1 of 2 infusing. -2 units of blood ordered in ED-will repeat H&H 30-45 min after transfusion complete -Monitor for bleeding -IV protonix -NPO -Bed rest /Bedside Commode- Pt not to get up without assistance, and not to use the restroom. -Monitor for Bleeding -hypovolemic or hemorrhagic shock 2. Chronic diastolic HFpEF EF 55% with pulmonary hypertension, Coronary artery disease status post 6 stents placed April 16, 2022, chronic, present on admissio n-stable Continue medical therapy. -Last Echo reported in prior note to have been completed 12/2021-? This indicated the left ventricular systolic function was normal without focal wall motion abnormalities.? His ejection fraction was 55-60%.? The right ventricle is moderately dilated.? Right systolic ventricular function is mildly reduced.? Left atrium severely dilated, right atrium severely dilated.? There was moderate mitral calcification. 3.? Normocytic anemia, acute on chronic, present on admission -hemoglobin 7.7, hematocrit 23.3, RBC 2.73 -06/19/2022: RBC 2.58, hemoglobin 7.4, hematocrit 21.7. -appears slightly below baseline. Hgb 8-10/ HCT 25 -05/21/2022 was 8.1/24.6 -2 units of blood ordered will repeat H&H 30-45 min after transfusion complete 4. Chronic obstructive pulmonary disease and restrictive lung disease, present on admission.? Stable. -Does not represent COPD exacerbation. -PFTs on 04/19/2019 demonstrated mild COPD and restrictive disease with decreased diffusion capacity. - Continue Albuterol MDI inhaler with spacer 2 puffs every 4 hours as needed. -continue CPAP -monitor for respiratory distress, or escalating oxygen demand. 5. NIDDM, diet-controlled, present on admission.? Stable. -06/2022 A1c 5.8% well -controlled -Patient is under the care of a expanded duty dental assistant in [place] [facility]. He is on no diabetic medications and uses various herbal supplements that he cannot recall. -A1C ordered -BS check Q6-while NPO, then ACHS -patient admitted under diabetic protocol, monitor for hypo or hyperglycemia, low does sliding scale as needed 6. Chronic kidney disease stage 3, present on admission.-stable -today BUN 28, creatinine 1.02, GFR>60 -06/19/2022 BUN 33, creatinine 1.26, glucose 130, GFR 58.? 05/21/2022 BUN 29, creatinine 1.10, 05/29/22 Property Adjuster.? 1.33. -Baseline HOT CAR CHARGER. average 1.0 -continue to follow.? 7. Chronic atrial fibrillation/flutter status post ablation, chronic, present on admission.? Stable. -The patient denies complaints of chest pain or palpitations. -Continue amiodarone, metoprolol -Holding anticoagulation with Xarelto, Plavix 8. Hypertension, essential, chronic, present on admission.? Stable. Hypotensive on admit today, below base line-96/52, 91/52, 98/57, on admit 108/57 -Blood pressure average systolic 130s -order to notify provider for map approach<65, SBP< 100/DBP<80 -Holding while NPO: enalapril 5 mg daily metoprolol succinate 25 mg daily in the morning and 12.5 mg daily at bedtime and triamterene/hydrochlorothiazide 37.5/25 mg daily. restart when able. 9. Hyperlipidemia, chronic, present on admission.? Stable. -Hold while NPO lovastatin 40 mg daily. 10 Hypothyroidism, acquired, chronic, present on admission.? Stable. -TSH ordered. -Hold while NPO levothyroxine 75 mcg daily and liothyronine 10 mcg daily. 11. High-grade prostate adenocarcinoma, chronic, present on admission Currently off of chemotherapy 11. BPH, chronic, present on admission.? Stable. -Hold while NPO: tamsulosin 0.8 mg daily . 12. GERD, with history of diverticulitis/diverticulosis, chronic, present on admission.? Stable. -No home PPI noted in patients chart- was on protonix daily previously 13. Obstructive sleep apnea on CPAP, chronic, present on admission.? Stable. -Continue home CPAP per RT protocol. Code status:? FULL CODE Surrogate:? Loli card spouse Prophylaxis:? Contraindicated, SCDs only COVID PCR:? Negative Disposition patient admitted to acute care expected length of stay greater than 2 midnights, re-evaluation of recurrence of lower GI bleed. I have utilized all available immediate resources to obtain, update, or review the patient's current medications. I confirmed that the patient's advanced care plan is present, Code status is documented and/or surrogate decision maker is listed in the patient's medical re cord. ? Time Spent With Patient Critical Care time: I spent a total of [] minutes of critical care time on this patient's care today; this time is exclusive of procedural time. Quality VTE Deep Vein Thrombosis/Pulmonary Embolism Present on Admission: No
[2022-07-13 03:16] LABS: Add Manual Diff / Slide Review NO; Basophils Absolute Auto 0 /uL (0-100); Basophils Percent Auto 0.4 % (0-2); Eosinophils Absolute Auto 100 /uL (0-450); Eosinophils Percent Auto 1.3 % (2-4); Hemoglobin 8.8 g/dL (13.5-17.5); Lymphocytes Absolute Auto 300 /uL (1100-4500); Lymphocytes Percent Auto 5.7 % (25-40); Mean Corpuscular HGB Conc 32.4 % (30-36); Mean Corpuscular Hemoglobin 27.6 PG (26-34); Mean Corpuscular Volume 85.4 fL (80-100); Monocytes Absolute Auto 500 /uL (0-900); Monocytes Percent Auto 9.8 % (3-14); Neutrophils Absolute Auto 4400 /uL (1500-7000); Neutrophils Percent Auto 82.8 % (50-75); Platelet Count 246 X10^3/uL (150-400); Red Blood Cell Count 3.19 X10^6/uL (4.5-5.9); White Blood Cell Count 5.4 X10^3/uL (4.5-11.0)
[2022-07-13 03:19] LABS: Hematocrit 27.3 % (41-53)
[2022-07-13 03:21] LABS: BUN Creatinine Ratio 30.2 (6-22); Blood Urea Nitrogen 29 mg/dL (9-20); Calcium 8.1 mg/dL (8.4-10.2); Carbon Dioxide 26 mmol/L (22-32); Chloride 102 mmol/L (98-107); Estimated Glomerular Filt Rate > 60 mL/min (>60); Glucose 104 mg/dL (80-110); HEMOLYSIS < 15 (0-50); Potassium 4.2 mmol/L (3.4-5.1); Sodium 135 mmol/L (137-145)
[2022-07-13 04:05] LABS: TSH w/ Reflex to FT4 0.58 uIU/mL (0.47-4.68)
--- NOTE | 2022-07-13 08:40 | P.PN_ITS ---
Subjective Subjective Date Patient Seen: 07/13/22 Time Patient Seen: 12:00 Interval history: Patient notes one episode of tarry black stools today. Otherwise no abd pain, NV or lightheadedness. Exam Vital Signs (past 8 hours): - 07/13/22 02:05 07/13/22 04:34 07/13/22 07:41 Temperature 97.3 F L 96.6 F L 97.3 F L Pulse Rate 68 80 78 Respiratory Rate 16 18 16 Blood Pressure 96/53 L 100/54 L 101/58 L Pulse Oximetry 93 94 Oxygen Flow Rate 0 0 Oxygen Delivery Method Room Air,CPAP Oxygen Flow Rate 0 Narrative Exam Narrative: General:? Patient is a well-developed, well-nourished in no distress at this time. HEENT:? Normocephalic, atraumatic, extraocular muscles intact, oral pharynx is clear and mucous membranes are moist.? Neck is supple and symmetric, trachea is midline, no adenopathy, no thyroid enlargement, nontender, no masses palpated.? Negative for JVD Chest:? Normal AP diameter and contour without kyphoscoliosis, no nasal flaring, retractions, or tachypneic labored Lungs:? Auscultation of all lung puckett are clear without adventitious sounds, wheezes, rhonchi, or rales. Cardio:? S1 & S2 with regular rate and rhythm without murmur, rubs, or gallops, no carotid bruit, no cardiac pulsations present. Abdomen:? Soft nontender, negative for organomegaly, or masses.? Bowel sounds are present in all 4 quadrants without guarding or rebound, no CVA tenderness. Musculoskeletal:? Muscle strength and tone are equal within normal limits, no deformity, crepitus, effusions, cyanosis, clubbing or edema present.? Full range of motion intact radial and pedal pulses are normal. Skin:? Warm dry and intact without rashes, ulcerations or petechiae.? Neuro:? Alert and orientated x3, strength is +5/5 in all extremities, sensation to touch intact, no gross deficits noted of cranial nerves. Psych:? Patient has a well-kept appearance, appropriate affect, mental status attitude thought context and judgment are appropriate for age. Objective Labs Result Diagrams: 07/13/22 10:00 07/13/22 03:00 Labs: Laboratory Results - last 24 hr 07/12/22 07/12/22 07/12/22 14:00 14:00 14:00 WBC 6.1 RBC 2.73 L Hgb 7.7 L Hct 23.3 L MCV 85.4 MCH 28.2 MCHC 33.1 RDW 18.1 H Plt Count 280 Neut % (Auto) 83.1 H Lymph % (Auto) 5.8 L [place] % (Auto) 10.2 Eos % (Auto) 0.7 L Baso % (Auto) 0.2 Neut # (Auto) 5100 Lymph # (Auto) 400 L [place] # (Auto) 600 Eos # (Auto) 0 Baso # (Auto) 0 PT 30.7 H INR 2.6 H APTT 40 H Sodium 136 L Potassium 4.8 Chloride 100 Carbon Dioxide 26 BUN 28 H Creatinine 1.02 Estimated GFR > 60 BUN/Creatinine Ratio 27.5 H Glucose 104 Calcium 8.1 L Total Bilirubin 0.3 AST 36 ALT 22 Alkaline Phosphatase 96 Total Protein 6.6 Albumin 3.0 L Globulin 3.6 Albumin/Globulin Ratio 0.8 L TSH SARS-CoV-2 (PCR) Blood Type Antibody Screen Crossmatch 07/12/22 07/12/22 07/13/22 14:00 15:00 03:00 WBC 5.4 RBC 3.19 L Hgb 8.8 L Hct 27.3 L MCV 85.4 MCH 27.6 MCHC 32.4 RDW 18.0 H Plt Count 246 Neut % (Auto) 82.8 H Lymph % (Auto) 5.7 L [place] % (Auto) 9.8 Eos % (Auto) 1.3 L Baso % (Auto) 0.4 Neut # (Auto) 4400 Lymph # (Auto) 300 L [place] # (Auto) 500 Eos # (Auto) 100 Baso # (Auto) 0 PT INR APTT Sodium Potassium Chloride Carbon Dioxide BUN Creatinine Estimated GFR BUN/Creatinine Ratio Glucose Calcium Total Bilirubin AST ALT Alkaline Phosphatase Total Protein Albumin Globulin Albumin/Globulin Ratio TSH SARS-CoV-2 (PCR) Negative Blood Type A Positive Antibody Screen Negative Crossmatch See Detail 07/13/22 07/13/22 03:00 03:00 WBC RBC Hgb Hct MCV MCH MCHC RDW Plt Count Neut % (Auto) Lymph % (Auto) [place] % (Auto) Eos % (Auto) Baso % (Auto) Neut # (Auto) Lymph # (Auto) [place] # (Auto) Eos # (Auto) Baso # (Auto) PT INR APTT Sodium 135 L Potassium 4.2 Chloride 102 Carbon Dioxide 26 BUN 29 H Creatinine 0.96 Estimated GFR > 60 BUN/Creatinine Ratio 30.2 H Glucose 104 Calcium 8.1 L Total Bilirubin AST ALT Alkaline Phosphatase Total Protein Albumin Globulin Albumin/Globulin Ratio TSH 0.58 SARS-CoV-2 (PCR) Blood Type Antibody Screen Crossmatch [facility] Medical History Anticoagulated Asthma (11/04/11) Atrial flutter (03/20/17) Benign prostatic hyperplasia (11/04/11) Body mass index (BMI) of 30.0 to 39.9 (10/27/11) BPH w urinary obs/LUTS Controlled type 2 diabetes mellitus (10/03/16) Diabetes Diverticulosis of sigmoid colon (03/20/17) Elevated PSA Elevated PSA Essential hypertension (10/27/11) Family history of prostate cancer Gastroesophageal reflux disease (03/01/14) History of primary bladder cancer History of primary bladder cancer History of UTI HLD (hyperlipidemia) Hyperlipidemia (10/27/11) Hypothyroid Lower urinary tract symptoms (LUTS) Malignant neoplasm of urinary bladder (10/11/16) Melena Mild cognitive impairment Neoplasm of uncertain behavior of bladder Osteoarthritis Persistent atrial fibrillation Prostate cancer RBBB plus LA hemiblock Tubular adenoma of colon (03/20/17) Surgical History History of appendectomy History of cardiac radiofrequency ablation History of cystoscopy History of knee surgery Hx of rotator cuff surgery Family History Father CAD (coronary artery disease) Hyperlipidemia Hypertension Hearing impairment Mother CAD (coronary artery disease) Hypertension Hyperlipidemia Cancer Social History marital status: household members: spouse occupational status: previously employed Smoking Status: Never smoker alcohol intake: never substance use type: does not use caffeine: Yes Assessment & Plan Assessment & Plan narrative: 1. Acute blood loss anemia, secondary to Lower GI bleed, recurrent, present on admission -Admit H&H 7.7/23.3, melena plus hematochezia noted -holding all anticoagulation anti-platelet therapy- and VTE prophylaxis -consult for Dr. Perez gen surg placed -2 units of blood ordered in ED, Hgb now 10 -Monitor for bleeding -IV protonix -NPO at midnight 07/14 for possible EGD -gen surg to discuss with patient possible surgery given his history of severe diverticulosis which may require colectomy 2. Chronic diastolic HFpEF EF 55% with pulmonary hypertension, Coronary artery disease status post 6 stents placed April 16, 2022, chronic, present on admission-stable Continue medical therapy. -Last Echo reported in prior note to have been completed 12/2021-? This indicated the left ventricular systolic function was normal without focal wall motion abnormalities.? His ejection fraction was 55-60%.? The right ventricle is moderately dilated.? Right systolic ventricular function is mildly reduced.? Left atrium severely dilated, right atrium severely dilated.? There was moderate mitral calcification. 3.?Recent CAD with stents placed -patient notes stents placed a few weeks ago at [facility] -currently on plavix for this -holding plavix for now given GIB, consider restarted to see if he bleeds further 4. Chronic obstructive pulmonary disease and restrictive lung disease, present on admission.? Stable. -Does not represent COPD exacerbation. -PFTs on 04/19/2019 demonstrated mild COPD and restrictive disease with decreased diffusion capacity. - Continue Albuterol MDI inhaler with spacer 2 puffs every 4 hours as needed. -continue CPAP -monitor for respiratory distress, or escalating oxygen demand. 5. NIDDM, diet-controlled, present on admission.? Stable. -06/2022 A1c 5.8% well -controlled -Patient is under the care of a fabrication and assembly supervisor in [place] on [facility]. He is on no diabetic medications and uses various herbal supplements that he cannot recall. -A1C ordered -BS check Q6-while NPO, then ACHS -patient admitted under diabetic protocol, monitor for hypo or hyperglycemia, low does sliding scale as needed 6. Chronic kidney disease stage 3, present on admission.-stable -today BUN 28, creatinine 1.02, GFR>60 -06/19/2022 BUN 33, creatinine 1.26, glucose 130, GFR 58.? 05/21/2022 BUN 29, creatinine 1.10, 05/29/22 Foster Care Therapist.? 1.33. 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 average 1.0 -continue to follow.? 7. Chronic atrial fibrillation/flutter status post ablation, chronic, present on admission.? Stable. -The patient denies complaints of chest pain or palpitations. -Continue amiodarone, metoprolol -Holding anticoagulation with Xarelto, Plavix 8. Hypertension, essential, chronic, present on admission.? Stable. Hypotensive on admit today, below base line-96/52, 91/52, 98/57, on admit 108/57 -Blood pressure average systolic 130s -order to notify provider for map approach<65, SBP< 100/DBP<80 -Holding while NPO: enalapril 5 mg daily metoprolol succinate 25 mg daily in the morning and 12.5 mg daily at bedtime and triamterene/hydrochlorothiazide 37.5/25 mg daily. restart when able. 9. Hyperlipidemia, chronic, present on admission.? Stable. -Hold while NPO lovastatin 40 mg daily. 10 Hypothyroidism, acquired, chronic, present on admission.? Stable. -TSH 0.58 -Hold while NPO levothyroxine 75 mcg daily and liothyronine 10 mcg daily. 11. High-grade prostate adenocarcinoma, chronic, present on admission -Currently off of chemotherapy 11. BPH, chronic, present on admission.? Stable. -Hold while NPO: tamsulosin 0.8 mg daily . 12. GERD, with history of diverticulitis/diverticulosis, chronic, present on admission.? Stable. -No home PPI noted in patients chart- was on protonix daily previously 13. Obstructive sleep apnea on CPAP, chronic, present on admission.? Stable. -Continue home CPAP per RT protocol. Code status:? FULL CODE Surrogate:? Loli card spouse Prophylaxis:? Contraindicated, SCDs only COVID PCR:? Negative Dispo: Monitor rebleeding. Possible EGD tomorrow vs monitor off xarelto and continuing plavix due to heart stents. ? Time Spent With Patient Critical Care time: I spent a total of [] minutes of critical care time on this patient's care today; this time is exclusive of procedural time. Quality VTE Deep Vein Thrombosis/Pulmonary Embolism Present on Admission: No
[2022-07-13] MEDS: FINASTERIDE 5 MG TABLET PO (08:46)
[2022-07-13] MEDS: ATORVASTATIN 20 MG TABLET 10 MG PO (08:46)
[2022-07-13] MEDS: PANTOPRAZOLE 40 MG VIAL IV ×2 (08:47→20:59)
[2022-07-13] MEDS: LIOTHYRONINE 5 MCG TABLET 10 MCG PO (08:47)
[2022-07-13 10:16] LABS: RBC Urine 10-30/HPF (0-5/HPF); WBC Urine None Seen (0-5/HPF)
[2022-07-13 10:17] LABS: Bacteria Urine None Seen; Culture Indicated Urine Cult Not Indicated
--- NOTE | 2022-07-13 13:29 | CM.DANOTE ---
Addendum entered by JOANNE Lyman 07/13/22 13:43: ADD: Patient mostly independent with ADL's prior to SNF stays. niece Luz Marina, who lives in [facility] but works at [employer], has been staying with patient/spouse 3-4 days a week for work and then goes home on her off days. Pt states his is in pretty good health and can assist if needed DEBORA Original Note: Initial DCP Assessment Note Pt is a 77 yo male, resident of [facility], arrives complaining of blood from rectum, found to have blood loss anemia sec to lower GI bleed. Admitted inpatient, EGD pending, possible need for colonoscopy Thursday. Hx includes: high-grade prostate adenocarcinoma, bladder tumor, COPD, Asthma, GERD, diverticulitis, diverticulosis, KIRA, atrial flutter, AFib ,hypothyroidism, hyperlipidemia, BPH with lower urinary OBS, coronary artery disease (stents x6 2021), CKD, normcyticanemia, GI bleed hx of GI bleed, diverticulitis, diverticulosis. PCP: Leatha Bentley Payer: M[employer] Reviewed chart, pt discussed in multidisciplinary rounds this morning. Here at least through tomorrow; Met w/patient to introduce self and explain role. Patient has not been home much over the last 3-5 months; 5 admissions since February 2022 and 4 ER visits. Patient has been discharged to [facility] H+R x2 since March 2022 Patient hopes to return home w/spouse, states he hasn't been able to stay home because of this bleeding. In addition, patient with known hx of falls. CM team will plan to follow closely as medical POC unfolds; it will be helpful to include spouse Loli in any discharge planning moving forward, patient agreeable to this JOANNE Paz Discharge Planning/Care Management CM Discharge Assessment Start: 07/13/22 13:22 Freq: Status: Active Protocol: Document 07/13/22 13:23 DEBORA (Rec: 07/13/22 13:29 DEBORA [id number]) Discharge Planning Assessment Assigned Design Printer Balloon JOANNE Balderas DPOA/Assigned Designee Name Loli Card, spouse Contact Information [phone] Advance Directives? Yes Advance Directives on File Yes History Provided By Patient,Medical Record Has Patient been admitted in last 30 Yes days? Comment Here 06.19.22-06.21.22 Prior Living Arrangements House Household Members spouse Type of transporation used prior to Relies on Others admit Independent with ADL's No Is patient alert and oriented? Yes Needs Assistance With Bathing,Grooming,Meal Prep, Managing Medications,Home Chores / Shopping Patient/Family Preference Half-Way Facility,Home with Home Health Comment Patient has been to [place] [id number] over the last few months, says he wants to go home upon discharge Discharge Plan Home with Home Health Transportation Arrangement facility [facility] if SNF and spouse if home Referrals Initiated Additional Comment HH vs SNF pending progress
--- NOTE | 2022-07-13 14:48 | PM.HP.1 ---
History of Present Illness History of Present Illness Chief complaint: Bleeding from rectum Narrative: Mr. Leandro Allen is a 77-year-old male with multiple medical problems including COPD, bladder tumor, obstructive sleep apnea, AFib/flutter, chronic kidney disease among others who has had several episodes of GI bleeding in the past. According to the records I am seeing his last colonoscopy was July 2020 done through the [facility] gastroenterology office and extensive sigmoid and descending diverticulosis was seen. The patient relates that he has had a colonoscopy within the last year at the [facility]. I see a note from their office on 01/01/2021 where he was evaluated again for lower GI bleeding at that time internal hemorrhoids were identified. Banding was offered and patient declined. He was hospitalized earlier this month with the same symptoms and had an EGD done by Dr. Ludwig. Only thing seen on that exam was some gastritis and the patient was started on a PPI which he has been on since that time. Today the patient says that his symptoms of dark bloody stool started about a week ago. He denies any shortness of breath or dizziness. His last dark stool was today according to nursing staff there might have been some bright red blood mixed in with that. He says that he has a transesophageal echo scheduled for next week. He is taking anticoagulants both Xarelto and Plavix for a flutter AFib and for coronary artery stents x6 which were done recently in 2021 Patient History Medical History Anticoagulated Asthma (11/04/11) Atrial flutter (03/20/17) Benign prostatic hyperplasia (11/04/11) Body mass index (BMI) of 30.0 to 39.9 (10/27/11) BPH w urinary obs/LUTS Controlled type 2 diabetes mellitus (10/03/16) Diabetes Diverticulosis of sigmoid colon (03/20/17) Elevated PSA Elevated PSA Essential hypertension (10/27/11) Family history of prostate cancer Gastroesophageal reflux disease (03/01/14) History of primary bladder cancer History of primary bladder cancer History of UTI HLD (hyperlipidemia) Hyperlipidemia (10/27/11) Hypothyroid Lower urinary tract symptoms (LUTS) Malignant neoplasm of urinary bladder (10/11/16) Melena Mild cognitive impairment Neoplasm of uncertain behavior of bladder Osteoarthritis Persistent atrial fibrillation Prostate cancer RBBB plus LA hemiblock Tubular adenoma of colon (03/20/17) Surgical History History of appendectomy History of cardiac radiofrequency ablation History of cystoscopy History of knee surgery Hx of rotator cuff surgery Family & Social History Family History Father CAD (coronary artery disease) Hyperlipidemia Hypertension Hearing impairment Mother CAD (coronary artery disease) Hypertension Hyperlipidemia Cancer Social History: household members spouse Prior Living Arrangements House Tobacco & Substance use: Smoking Status Never smoker alcohol intake never alcohol intake frequency 0-2 drinks per day Substance Use Type does not use Meds Home Medications and Allergies Home Medications Medication Instructions Recorded Confirmed Type lovastatin 40 mg tablet 40 mg PO Q DAY #90 tabs 03/04/17 07/12/22 Rx liothyronine 5 mcg tablet 10 mcg PO DAILY 04/18/19 07/12/22 History levothyroxine 75 mcg capsule 75 mcg PO DAILY 01/12/20 07/12/22 History tamsulosin 0.4 mg capsule (Flomax) 0.4 mg PO QPM 10/19/20 07/12/22 History finasteride 5 mg tablet 5 mg PO DAILY #90 tabs 03/06/21 07/12/22 Rx amiodarone 200 mg tablet 100 mg PO QPM 12/17/21 07/12/22 History metoprolol succinate 25 mg 25 mg PO DAILY 12/29/21 07/12/22 History tablet,extended release 24 hr aspirin 81 mg capsule 81 mg PO DAILY #30 caps 04/18/22 07/12/22 Rx metoprolol succinate 25 mg 12.5 mg PO BEDTIME #30 tabs 04/18/22 07/12/22 Rx tablet,extended release 24 hr potassium chloride 20 mEq 40 meq PO DAILY #4 tabs 05/15/22 07/12/22 Rx tablet,extended release (K-Tab) enalapril maleate 5 mg tablet 10 mg PO QDAY 05/29/22 07/12/22 History multivitamin 1 tab PO DAILY 05/29/22 07/12/22 History torsemide 20 mg tablet 20 mg DAILY 05/29/22 07/12/22 History pantoprazole 40 mg tablet,delayed 40 mg PO BID 30 days #60 tabs 06/21/22 07/12/22 Rx release Allergies Allergy/AdvReac Type Severity Reaction Status Date / Time latex Allergy Verified 06/19/22 17:50 Exam Vital Signs (past 8 hours): - 07/13/22 07:41 07/13/22 08:50 07/13/22 11:15 Temperature 97.3 F L 97.6 F Pulse Rate 78 77 Respiratory Rate 16 17 Blood Pressure 101/58 L 100/60 Pulse Oximetry 94 98 Oxygen Delivery Method CPAP Oxygen Flow Rate 0 0 Oxygen Delivery Method CPAP Oxygen Flow Rate 0 Const General: cooperative, healthy appearing, comfortable and other (Elderly, frail) HENMT Head: normal to inspection Resp Effort & Inspection: normal respiratory effort GI Palpation: soft and No tender Objective Labs Result Diagrams: 07/13/22 10:00 07/13/22 03:00 Labs: Laboratory Results - last 24 hr 07/12/22 07/12/22 07/13/22 14:00 15:00 03:00 WBC 5.4 RBC 3.19 L Hgb 8.8 L Hct 27.3 L MCV 85.4 MCH 27.6 MCHC 32.4 RDW 18.0 H Plt Count 246 Neut % (Auto) 82.8 H Lymph % (Auto) 5.7 L [place] % (Auto) 9.8 Eos % (Auto) 1.3 L Baso % (Auto) 0.4 Neut # (Auto) 4400 Lymph # (Auto) 300 L [place] # (Auto) 500 Eos # (Auto) 100 Baso # (Auto) 0 Sodium Potassium Chloride Carbon Dioxide BUN Creatinine Estimated GFR BUN/Creatinine Ratio Glucose Calcium TSH Urine RBC Urine WBC Urine Bacteria Ur Culture Indicated? SARS-CoV-2 (PCR) Negative Blood Type A Positive Antibody Screen Negative Crossmatch See Detail 07/13/22 07/13/22 07/13/22 03:00 03:00 09:59 WBC RBC Hgb Hct MCV MCH MCHC RDW Plt Count Neut % (Auto) Lymph % (Auto) [place] % (Auto) Eos % (Auto) Baso % (Auto) Neut # (Auto) Lymph # (Auto) [place] # (Auto) Eos # (Auto) Baso # (Auto) Sodium 135 L Potassium 4.2 Chloride 102 Carbon Dioxide 26 BUN 29 H Creatinine 0.96 Estimated GFR > 60 BUN/Creatinine Ratio 30.2 H Glucose 104 Calcium 8.1 L TSH 0.58 Urine RBC 10-30/hpf H Urine WBC None seen Urine Bacteria None seen Ur Culture Indicated? Cult not indicated SARS-CoV-2 (PCR) Blood Type Antibody Screen Crossmatch 07/13/22 10:00 WBC RBC Hgb 10.0 L Hct MCV MCH MCHC RDW Plt Count Neut % (Auto) Lymph % (Auto) [place] % (Auto) Eos % (Auto) Baso % (Auto) Neut # (Auto) Lymph # (Auto) [place] # (Auto) Eos # (Auto) Baso # (Auto) Sodium Potassium Chloride Carbon Dioxide BUN Creatinine Estimated GFR BUN/Creatinine Ratio Glucose Calcium TSH Urine RBC Urine WBC Urine Bacteria Ur Culture Indicated? SARS-CoV-2 (PCR) Blood Type Antibody Screen Crossmatch Assessment & Plan Assessment and plan (1) Acute GI bleeding: Status: Acute (2) Acute blood loss anemia: Status: Acute (3) Acute GI bleeding: Status: Acute (4) Diverticular hemorrhage: Status: Acute Plan Adding after having spent a decent amount of time reviewing the available medical records pertaining to previous GI bleeds. Also talking to the patient and performing a physical exam I think the most likely cause of this GI bleeding is diverticular in nature. I believe another EGD is low yield as gastritis should not be continuing to cause such severe problems especially given that he has been on a proton pump inhibitor since he was last scoped. Additionally he has had several colonoscopies in the past each of which have a determined severe diverticular disease in the sigmoid and descending colon. In in my experience in an acute setting, colonoscope can be difficult to do any intervention for diverticular bleeding. It can serve as a diagnostic tool but as a therapy, it is not so great. Interventional radiology can sometimes embolize small feeding blood vessels to the colon if they see active bleeding, but again in my experience you really cannot place a clip with a colonoscope very well onto a bleeding diverticulum even if you see one. In other words it is difficult to intervene on bleeding with the colonoscope for a lower GI bleed in the same way you can intervene for bleeding using the EGD scope for upper GI bleeding. Given the patient has had several colonoscopies and has had EGD recently I feel pretty confident in my diagnosis of a diverticular source for his presenting symptoms. In terms of the treatment I would recommend high-fiber diet and stopping anticoagulation. Given the stents I understand Plavix is required but perhaps the Xarelto can be stopped understanding a discussion of the risks benefits and alternatives. If the patient continues to require transfusions or is having worsening active bleeding the remaining options are transfer to an institution with Interventional Radiology or colectomy. I will continue to follow along please do not hesitate to contact me at [phone] with any further questions or concerns. Time Spent With Patient Time with patient: 30 to 49 minutes with 50% spent counseling/coordinating care Quality VTE Deep Vein Thrombosis/Pulmonary Embolism Present on Admission: No
[2022-07-13] MEDS: TAMSULOSIN 0.4 MG CAPSULE PO (17:19)
[2022-07-13] MEDS: AMIODARONE 200 MG TABLET 100 MG PO (17:19)
--- NOTE | 2022-07-13 21:54 | PC.NURSE ---
Pt cooperative with care and staff. Pt denies pain. States he had a BM at beginning of shift and saw no blood, it was all brown. RN educated pt to request help with ambulating as well as to not flush toilet so we can see BM. Pt has been told this by previous RN and UNIVERSITY SERVICES PROGRAM ASSOCIATE.
[2022-07-14] VITALS (8 sets, daily range): BP systolic 104–145; BP diastolic 47–83; PULSE 64–116; RESP 17–23; TEMP 35.9–37.2; O2SAT 94–100
[2022-07-14] MEDS: LEVOTHYROXINE 75 MCG TABLET PO (06:12)
[2022-07-14 06:58] LABS: Add Manual Diff / Slide Review NO; Basophils Absolute Auto 0 /uL (0-100); Basophils Percent Auto 0.5 % (0-2); Eosinophils Absolute Auto 100 /uL (0-450); Eosinophils Percent Auto 1.5 % (2-4); Hematocrit 29.7 % (41-53); Hemoglobin 9.8 g/dL (13.5-17.5); Lymphocytes Absolute Auto 300 /uL (1100-4500); Lymphocytes Percent Auto 6.3 % (25-40); Mean Corpuscular HGB Conc 33.1 % (30-36); Mean Corpuscular Hemoglobin 28.2 PG (26-34); Mean Corpuscular Volume 85.2 fL (80-100); Monocytes Absolute Auto 500 /uL (0-900); Monocytes Percent Auto 11.4 % (3-14); Neutrophils Absolute Auto 3300 /uL (1500-7000); Neutrophils Percent Auto 80.3 % (50-75); Platelet Count 256 X10^3/uL (150-400); Red Blood Cell Count 3.49 X10^6/uL (4.5-5.9); Red Cell Distribution Width 17.6 % (11.6-14.8); White Blood Cell Count 4.1 X10^3/uL (4.5-11.0)
[2022-07-14 07:08] LABS: BUN Creatinine Ratio 24.7 (6-22); Blood Urea Nitrogen 22 mg/dL (9-20); Calcium 8.2 mg/dL (8.4-10.2); Carbon Dioxide 28 mmol/L (22-32); Chloride 106 mmol/L (98-107); Estimated Glomerular Filt Rate > 60 mL/min (>60); Glucose 89 mg/dL (80-110); HEMOLYSIS 24 (0-50); Potassium 4.4 mmol/L (3.4-5.1); Sodium 139 mmol/L (137-145)
[2022-07-14] MEDS: LIOTHYRONINE 5 MCG TABLET 10 MCG PO (10:32)
[2022-07-14] MEDS: FINASTERIDE 5 MG TABLET PO (10:32)
[2022-07-14] MEDS: ATORVASTATIN 20 MG TABLET 10 MG PO (10:32)
[2022-07-14] MEDS: PANTOPRAZOLE 40 MG VIAL IV ×2 (10:33→20:29)
--- NOTE | 2022-07-14 10:44 | P.PN_ITS ---
Subjective Subjective Date Patient Seen: 07/14/22 Time Patient Seen: 10:30 Interval history: Patient states he is feeling fine today. He is very hungry his bowel movements have been more normal. His hemoglobin stable and hemodynamically has been stable overnight Exam Vital Signs (past 8 hours): - 07/14/22 04:00 07/14/22 04:00 07/14/22 04:08 Temperature 97.0 F L Pulse Rate 86 Pulse Rate [Orthostatic Lying] 96 H Pulse Rate [Orthostatic Sitting] 86 Pulse Rate [Orthostatic Standing] 82 Respiratory Rate 23 23 Blood Pressure 120/60 Blood Pressure [Orthostatic Lying] 114/65 Blood Pressure [Orthostatic Sitting] 120/60 Blood Pressure [Orthostatic Standing] 126/62 Pulse Oximetry 99 Oxygen Flow Rate 07/14/22 08:00 07/14/22 08:08 Temperature 96.7 F L Pulse Rate 73 Pulse Rate [Orthostatic Lying] 73 Pulse Rate [Orthostatic Sitting] 82 Pulse Rate [Orthostatic Standing] 95 H Respiratory Rate 20 Blood Pressure 130/83 Blood Pressure [Orthostatic Lying] 130/83 Blood Pressure [Orthostatic Sitting] 116/59 L Blood Pressure [Orthostatic Standing] 107/59 L Pulse Oximetry 100 Oxygen Flow Rate 0 Oxygen Delivery Method CPAP Oxygen Flow Rate 0 Narrative Exam Narrative: He is awake alert oriented in no acute distress using his CPAP in bed while taking a nap but easily arousable. His abdomen is soft nontender nondistended Objective Labs Result Diagrams: 07/14/22 06:08 07/14/22 06:08 Labs: Laboratory Results - last 24 hr 07/14/22 07/14/22 06:08 06:08 WBC 4.1 L RBC 3.49 L Hgb 9.8 L Hct 29.7 L MCV 85.2 MCH 28.2 MCHC 33.1 RDW 17.6 H Plt Count 256 Neut % (Auto) 80.3 H Lymph % (Auto) 6.3 L [place] % (Auto) 11.4 Eos % (Auto) 1.5 L Baso % (Auto) 0.5 Neut # (Auto) 3300 Lymph # (Auto) 300 L [place] # (Auto) 500 Eos # (Auto) 100 Baso # (Auto) 0 Sodium 139 Potassium 4.4 Chloride 106 Carbon Dioxide 28 BUN 22 H Creatinine 0.89 Estimated GFR > 60 BUN/Creatinine Ratio 24.7 H Glucose 89 Calcium 8.2 L [facility] Medical History Anticoagulated Asthma (11/04/11) Atrial flutter (03/20/17) Benign prostatic hyperplasia (11/04/11) Body mass index (BMI) of 30.0 to 39.9 (10/27/11) BPH w urinary obs/LUTS Controlled type 2 diabetes mellitus (10/03/16) Diabetes Diverticulosis of sigmoid colon (03/20/17) Elevated PSA Elevated PSA Essential hypertension (10/27/11) Family history of prostate cancer Gastroesophageal reflux disease (03/01/14) History of primary bladder cancer History of primary bladder cancer History of UTI HLD (hyperlipidemia) Hyperlipidemia (10/27/11) Hypothyroid Lower urinary tract symptoms (LUTS) Malignant neoplasm of urinary bladder (10/11/16) Melena Mild cognitive impairment Neoplasm of uncertain behavior of bladder Osteoarthritis Persistent atrial fibrillation Prostate cancer RBBB plus LA hemiblock Tubular adenoma of colon (03/20/17) Surgical History History of appendectomy History of cardiac radiofrequency ablation History of cystoscopy History of knee surgery Hx of rotator cuff surgery Family History Father CAD (coronary artery disease) Hyperlipidemia Hypertension Hearing impairment Mother CAD (coronary artery disease) Hypertension Hyperlipidemia Cancer Social History marital status: household members: spouse occupational status: previously employed Smoking Status: Never smoker alcohol intake: never substance use type: does not use caffeine: Yes Assessment & Plan Post-op Assessment and plan (1) Diverticular hemorrhage: Postoperative Procedures: Please see my history and physical for more information but I believe this to be a diverticular hemorrhage. At this point I think the best course of action is to recommend Metamucil fiber drink twice daily and stop the Xarelto. Prior to restarting any anticoagulants he should have a discussion with either his protection consultant or primary care to About the risks benefits and alternatives of continuing anticoagulation versus continuing to present to the emergency room with diverticular bleeding and requiring at times transfusions. Otherwise the only great options for him would be colectomy or possibly interventional radiology embolization which is not readily available at this institution. I discussed with this the hospitallist integration technician today. May have a regular diet I think we should continue to trend hemoglobins at least 1 more day to assure that the hemorrhage is stable. Quality VTE Deep Vein Thrombosis/Pulmonary Embolism Present on Admission: No
--- NOTE | 2022-07-14 14:04 | CM.DPNOTE ---
Discharge Planning Note: Met with patient who is sitting on side of bed eating lunch. He is alert and oriented. He states he did not have a good experience with his 2 previous stays at [facility] this summer and hopes to return home. He lives with his spouse Loli in their own home in [place]. Spoke with Loli by phone and she is somewhat frustrated with caring for him due to his ongoing weakness and some falls. She states he will be going to [facility] on 07/17 () for outpatient procedure to check his 6 stents and leaky valves. MD notes state if H&H stable he may dc tomorrow? Further workup for patient's intermittent GI bleed status in light of being on anticoagulation for his heart, outpatient. Explained Home Health services to spouse and patient and they are agreeable to this. Spoke with [facility] and will send Referral to them (RN, PT/OT, AGRICULTURAL CHEMICALS INSPECTOR, MANAGER OF FINANCIAL). Spouse was in earlier today and will return tomorrow will provide brochure. Plan: DC when medically stable. services to start *after . Savita Naidu RN/DCP
--- NOTE | 2022-07-14 17:12 | PM.PN.1 ---
Subjective Subjective Date Patient Seen: 07/14/22 Interval history: Patient states he is feeling fine today. He is very hungry his bowel movements have been more normal though staff note small streaks of blood. His hemoglobin is relatively stable but declining very slightly. Exam Vital Signs (past 8 hours): - 07/14/22 12:00 07/14/22 12:00 07/14/22 16:00 Temperature 97.5 F L 96.7 F L Pulse Rate 116 H Pulse Rate [Orthostatic Lying] 96 H Pulse Rate [Orthostatic Sitting] 113 H Pulse Rate [Orthostatic Standing] 108 H Respiratory Rate 18 20 Blood Pressure 145/82 H Blood Pressure [Orthostatic Lying] 118/54 L Blood Pressure [Orthostatic Sitting] 129/68 Blood Pressure [Orthostatic Standing] 120/69 Pulse Oximetry 100 98 Oxygen Flow Rate 0 0 Oxygen Delivery Method CPAP Oxygen Flow Rate 0 Narrative Exam Narrative: General:? Patient is a well-developed, well-nourished in no distress at this time. HEENT:? Normocephalic, atraumatic, extraocular muscles intact, oral pharynx is clear and mucous membranes are moist.? Neck is supple and symmetric, trachea is midline, no adenopathy, no thyroid enlargement, nontender, no masses palpated.? Negative for JVD Chest:? Normal AP diameter and contour without kyphoscoliosis, no nasal flaring, retractions, or tachypneic labored Lungs:? Auscultation of all lung puckett are clear without adventitious sounds, wheezes, rhonchi, or rales. Cardio:? S1 & S2 with regular rate and rhythm without murmur, rubs, or gallops, no carotid bruit, no cardiac pulsations present. Abdomen:? Soft nontender, negative for organomegaly, or masses.? Bowel sounds are present in all 4 quadrants without guarding or rebound, no CVA tenderness. Musculoskeletal:? Muscle strength and tone are equal within normal limits, no deformity, crepitus, effusions, cyanosis, clubbing or edema present.? Full range of motion intact radial and pedal pulses are normal. Skin:? Warm dry and intact without rashes, ulcerations or petechiae.? Neuro:? Alert and orientated x3, strength is +5/5 in all extremities, sensation to touch intact, no gross deficits noted of cranial nerves. Psych:? Patient has a well-kept appearance, appropriate affect, mental status attitude thought context and judgment are appropriate for age. Objective Labs Result Diagrams: 07/14/22 06:08 07/14/22 06:08 Labs: Laboratory Results - last 24 hr 07/14/22 07/14/22 06:08 06:08 WBC 4.1 L RBC 3.49 L Hgb 9.8 L Hct 29.7 L MCV 85.2 MCH 28.2 MCHC 33.1 RDW 17.6 H Plt Count 256 Neut % (Auto) 80.3 H Lymph % (Auto) 6.3 L [place] % (Auto) 11.4 Eos % (Auto) 1.5 L Baso % (Auto) 0.5 Neut # (Auto) 3300 Lymph # (Auto) 300 L [place] # (Auto) 500 Eos # (Auto) 100 Baso # (Auto) 0 Sodium 139 Potassium 4.4 Chloride 106 Carbon Dioxide 28 BUN 22 H Creatinine 0.89 Estimated GFR > 60 BUN/Creatinine Ratio 24.7 H Glucose 89 Calcium 8.2 L PFSH Medical History Anticoagulated Asthma (11/04/11) Atrial flutter (03/20/17) Benign prostatic hyperplasia (11/04/11) Body mass index (BMI) of 30.0 to 39.9 (10/27/11) BPH w urinary obs/LUTS Controlled type 2 diabetes mellitus (10/03/16) Diabetes Diverticulosis of sigmoid colon (03/20/17) Elevated PSA Elevated PSA Essential hypertension (10/27/11) Family history of prostate cancer Gastroesophageal reflux disease (03/01/14) History of primary bladder cancer History of primary bladder cancer History of UTI HLD (hyperlipidemia) Hyperlipidemia (10/27/11) Hypothyroid Lower urinary tract symptoms (LUTS) Malignant neoplasm of urinary bladder (10/11/16) Melena Mild cognitive impairment Neoplasm of uncertain behavior of bladder Osteoarthritis Persistent atrial fibrillation Prostate cancer RBBB plus LA hemiblock Tubular adenoma of colon (03/20/17) Surgical History History of appendectomy History of cardiac radiofrequency ablation History of cystoscopy History of knee surgery Hx of rotator cuff surgery Family History Father CAD (coronary artery disease) Hyperlipidemia Hypertension Hearing impairment Mother CAD (coronary artery disease) Hypertension Hyperlipidemia Cancer Social History marital status: household members: spouse occupational status: previously employed Smoking Status: Never smoker alcohol intake: never substance use type: does not use caffeine: Yes Assessment & Plan Assessment & Plan narrative: 1. Acute blood loss anemia, secondary to Lower GI bleed, recurrent, present on admission -Admit H&H 7.05/10.3, melena plus hematochezia noted -holding all anticoagulation anti-platelet therapy- and VTE prophylaxis -consult for Dr. Perez gen surg placed -2 units of blood ordered in ED, Hgb now 10 and near that today. -Monitor for bleeding -IV protonix -no further interventions here per general surgery, if he rebleeds they reocmmend transfer for either IR intervention or colectomy. 2. Chronic diastolic HFpEF EF 55% with pulmonary hypertension, Coronary artery disease status post 6 stents placed April 16, 2022, chronic, present on admission-stable Continue medical therapy. -Last Echo reported in prior note to have been completed 12/2021-? This indicated the left ventricular systolic function was normal without focal wall motion abnormalities.? His ejection fraction was 55-60%.? The right ventricle is moderately dilated.? Right systolic ventricular function is mildly reduced.? Left atrium severely dilated, right atrium severely dilated.? There was moderate mitral calcification. 3.?Recent CAD with stents placed -patient notes stents placed a few weeks ago at [facility] -currently on plavix for this -holding plavix for now given GIB, will restart as soon as possible. If h/h stable tomorrow will resume. 4. Chronic obstructive pulmonary disease and restrictive lung disease, present on admission.? Stable. -Does not represent COPD exacerbation. -PFTs on 04/19/2019 demonstrated mild COPD and restrictive disease with decreased diffusion capacity. - Continue Albuterol MDI inhaler with spacer 2 puffs every 4 hours as needed. -continue CPAP -monitor for respiratory distress, or escalating oxygen demand. 5. NIDDM, diet-controlled, present on admission.? Stable. -06/2022 A1c 5.8% well -controlled -Patient is under the care of a junior software developer in [place] on [facility]. He is on no diabetic medications and uses various herbal supplements that he cannot recall. -A1C ordered -BS check Q6-while NPO, then ACHS -patient admitted under diabetic protocol, monitor for hypo or hyperglycemia, low does sliding scale as needed 6. Chronic kidney disease stage 3, present on admission.-stable -today BUN 28, creatinine 1.02, GFR>60 -06/19/2022 BUN 33, creatinine 1.26, glucose 130, GFR 58.? 05/21/2022 BUN 29, creatinine 1.10, 05/29/22 [place].? 1.33. -Baseline CREDENTIALER. average 1.0 -continue to follow.? 7. Chronic atrial fibrillation/flutter status post ablation, chronic, present on admission.? Stable. -The patient denies complaints of chest pain or palpitations. -Continue amiodarone, metoprolol -Holding anticoagulation with Xarelto, Plavix 8. Hypertension, essential, chronic, present on admission.? Stable. Hypotensive on admit today, below base line-96/52, 91/52, 98/57, on admit 108/57 -Blood pressure average systolic 130s -order to notify provider for map approach<65, SBP< 100/DBP<80 -Holding while NPO: enalapril 5 mg daily metoprolol succinate 25 mg daily in the morning and 12.5 mg daily at bedtime and triamterene/hydrochlorothiazide 37.5/25 mg daily. restart when able. 9. Hyperlipidemia, chronic, present on admission.? Stable. -Hold while NPO lovastatin 40 mg daily. 10 Hypothyroidism, acquired, chronic, present on admission.? Stable. -TSH 0.58 -Hold while NPO levothyroxine 75 mcg daily and liothyronine 10 mcg daily. 11. High-grade prostate adenocarcinoma, chronic, present on admission -Currently off of chemotherapy 11. BPH, chronic, present on admission.? Stable. -Hold while NPO: tamsulosin 0.8 mg daily . 12. GERD, with history of diverticulitis/diverticulosis, chronic, present on admission.? Stable. -No home PPI noted in patients chart- was on protonix daily previously 13. Obstructive sleep apnea on CPAP, chronic, present on admission.? Stable. -Continue home CPAP per RT protocol. Code status:? FULL CODE Surrogate:? Loli card spouse Prophylaxis:? Contraindicated, SCDs only COVID PCR:? Negative Dispo: Monitor for continued bleeding, possible discharge home tomorrow if h/h remains stable. ? Time Spent With Patient Critical Care time: I spent a total of [] minutes of critical care time on this patient's care today; this time is exclusive of procedural time. Quality VTE Deep Vein Thrombosis/Pulmonary Embolism Present on Admission: No
[2022-07-14] MEDS: AMIODARONE 200 MG TABLET 100 MG PO (18:10)
[2022-07-14] MEDS: TAMSULOSIN 0.4 MG CAPSULE PO (18:10)
[2022-07-14] MEDS: PSYLLIUM HUSK 1 PACKET PO (20:29)
[2022-07-14] MEDS: SODIUM CHLORIDE 0.9% FLUSH 10 ML IV (20:30)
[2022-07-15 01:00] VITALS: BP 131/72; PULSE 95; RESP 20; TEMP 36.7; O2SAT 98
[2022-07-15 05:00] VITALS: BP 139/67; PULSE 94; RESP 21; TEMP 36.2; O2SAT 99
[2022-07-15 06:25] LABS: Add Manual Diff / Slide Review NO; Basophils Absolute Auto 0 /uL (0-100); Basophils Percent Auto 0.5 % (0-2); Eosinophils Absolute Auto 100 /uL (0-450); Eosinophils Percent Auto 1.4 % (2-4); Hematocrit 26.4 % (41-53); Hemoglobin 8.8 g/dL (13.5-17.5); Lymphocytes Absolute Auto 300 /uL (1100-4500); Lymphocytes Percent Auto 6.6 % (25-40); Mean Corpuscular HGB Conc 33.4 % (30-36); Mean Corpuscular Hemoglobin 28.3 PG (26-34); Mean Corpuscular Volume 84.6 fL (80-100); Monocytes Absolute Auto 500 /uL (0-900); Monocytes Percent Auto 11.1 % (3-14); Neutrophils Absolute Auto 3600 /uL (1500-7000); Neutrophils Percent Auto 80.4 % (50-75); Platelet Count 263 X10^3/uL (150-400); Red Blood Cell Count 3.13 X10^6/uL (4.5-5.9); White Blood Cell Count 4.4 X10^3/uL (4.5-11.0)
[2022-07-15 06:33] LABS: BUN Creatinine Ratio 24.5 (6-22); Blood Urea Nitrogen 24 mg/dL (9-20); Calcium 7.9 mg/dL (8.4-10.2); Carbon Dioxide 28 mmol/L (22-32); Chloride 104 mmol/L (98-107); Estimated Glomerular Filt Rate > 60 mL/min (>60); Glucose 103 mg/dL (80-110); HEMOLYSIS < 15 (0-50); Potassium 3.5 mmol/L (3.4-5.1); Sodium 136 mmol/L (137-145)
[2022-07-15] MEDS: LEVOTHYROXINE 75 MCG TABLET PO (06:56)
[2022-07-15] MEDS: ATORVASTATIN 20 MG TABLET 10 MG PO (08:45)
[2022-07-15] MEDS: FINASTERIDE 5 MG TABLET PO (08:45)
[2022-07-15] MEDS: PSYLLIUM HUSK 1 PACKET PO ×2 (08:45→20:08)
[2022-07-15 08:48] VITALS: BP 127/79; PULSE 80; RESP 16; TEMP 36.3; O2SAT 100
[2022-07-15] MEDS: LIOTHYRONINE 5 MCG TABLET 10 MCG PO (08:55)
[2022-07-15 11:55] VITALS: BP 120/63; PULSE 79; RESP 15; TEMP 36.6; O2SAT 100
--- NOTE | 2022-07-15 12:41 | PM.PNPO.1 ---
Subjective Subjective Interval history: Doing well this AM. Talked to family member at bedside. kind mature woman, daughter? but not sure. No further bleeding from below per patinet/family. aware of Hb drop one gram. no symptoms. Exam Vital Signs (past 8 hours): - 07/15/22 05:00 07/15/22 08:48 07/15/22 08:48 Temperature 97.2 F L 97.3 F L Pulse Rate 94 H 80 Respiratory Rate 21 16 Blood Pressure 139/67 127/79 Pulse Oximetry 99 100 Oxygen Flow Rate 0 07/15/22 11:55 Temperature 98 F Pulse Rate 79 Respiratory Rate 15 Blood Pressure 120/63 Pulse Oximetry 100 Oxygen Flow Rate 0 Oxygen Delivery Method Room Air,CPAP Oxygen Flow Rate 0 Objective Labs Result Diagrams: 07/15/22 05:59 07/15/22 05:59 Labs: Laboratory Results - last 24 hr 07/15/22 07/15/22 05:59 05:59 WBC 4.4 L RBC 3.13 L Hgb 8.8 L Hct 26.4 L MCV 84.6 MCH 28.3 MCHC 33.4 RDW 18.0 H Plt Count 263 Neut % (Auto) 80.4 H Lymph % (Auto) 6.6 L [place] % (Auto) 11.1 Eos % (Auto) 1.4 L Baso % (Auto) 0.5 Neut # (Auto) 3600 Lymph # (Auto) 300 L [place] # (Auto) 500 Eos # (Auto) 100 Baso # (Auto) 0 Sodium 136 L Potassium 3.5 Chloride 104 Carbon Dioxide 28 BUN 24 H Creatinine 0.98 Estimated GFR > 60 BUN/Creatinine Ratio 24.5 H Glucose 103 Calcium 7.9 L [facility] Medical History Anticoagulated Asthma (11/04/11) Atrial flutter (03/20/17) Benign prostatic hyperplasia (11/04/11) Body mass index (BMI) of 30.0 to 39.9 (10/27/11) BPH w urinary obs/LUTS Controlled type 2 diabetes mellitus (10/03/16) Diabetes Diverticulosis of sigmoid colon (03/20/17) Elevated PSA Elevated PSA Essential hypertension (10/27/11) Family history of prostate cancer Gastroesophageal reflux disease (03/01/14) History of primary bladder cancer History of primary bladder cancer History of UTI HLD (hyperlipidemia) Hyperlipidemia (10/27/11) Hypothyroid Lower urinary tract symptoms (LUTS) Malignant neoplasm of urinary bladder (10/11/16) Melena Mild cognitive impairment Neoplasm of uncertain behavior of bladder Osteoarthritis Persistent atrial fibrillation Prostate cancer RBBB plus LA hemiblock Tubular adenoma of colon (03/20/17) Surgical History History of appendectomy History of cardiac radiofrequency ablation History of cystoscopy History of knee surgery Hx of rotator cuff surgery Family History Father CAD (coronary artery disease) Hyperlipidemia Hypertension Hearing impairment Mother CAD (coronary artery disease) Hypertension Hyperlipidemia Cancer Social History marital status: household members: spouse occupational status: previously employed Smoking Status: Never smoker alcohol intake: never substance use type: does not use caffeine: Yes Assessment & Plan Post-op Postoperative Postoperative status narrative: I had the opportunity to discuss diverticular bleeding with family and go over again with patient. they understand. offer to f/u with [facility] as needed, but generally in these situations we have a rock and a hard place. If risk/benefit weighed, can stop xaralto, also would do fiber supplements. Please contact me as needed at [phone] or through [facility] with any further questions/concerns. Quality VTE Deep Vein Thrombosis/Pulmonary Embolism Present on Admission: No
[2022-07-15 12:59] LABS: Hemoglobin 8.7 g/dL (13.5-17.5)
[2022-07-15 16:00] VITALS: BP 120/58; PULSE 77; RESP 18; TEMP 36.4; O2SAT 97
[2022-07-15] MEDS: PANTOPRAZOLE 40 MG VIAL IV ×2 (16:39→20:08)
[2022-07-15] MEDS: AMIODARONE 200 MG TABLET 100 MG PO (16:39)
[2022-07-15] MEDS: TAMSULOSIN 0.4 MG CAPSULE PO (16:39)
--- NOTE | 2022-07-15 17:44 | PM.PN.1 ---
Subjective Subjective Date Patient Seen: 07/15/22 Interval history: Patient states he is feeling fine today. He is very hungry his bowel movements have been more normal though staff note small streaks of blood. His hemoglobin is relatively stable but declining very slightly. Exam Vital Signs (past 8 hours): - 07/15/22 11:55 07/15/22 16:00 Temperature 98 F 97.6 F Pulse Rate 79 77 Respiratory Rate 15 18 Blood Pressure 120/63 120/58 L Pulse Oximetry 100 97 Oxygen Flow Rate 0 0 Oxygen Delivery Method Room Air Oxygen Flow Rate 0 Narrative Exam Narrative: General:? Patient is a well-developed, well-nourished in no distress at this time. Pale HEENT:? Normocephalic, atraumatic, extraocular muscles intact, oral pharynx is clear and mucous membranes are moist.? Neck: supple and symmetric, trachea is midline, no adenopathy, no thyroid enlargement, nontender, no masses palpated.? Negative for JVD Chest:? Normal AP diameter and contour without kyphoscoliosis, no nasal flaring, retractions, or tachypneic labored Lungs:? Auscultation of all lung puckett are clear without adventitious sounds, wheezes, rhonchi, or rales. Cardio:? S1 & S2 with regular rate and rhythm without murmur, rubs, or gallops Abdomen:? S NT ND Musculoskeletal:?No effusions or joint tenderness. Skin:? Warm dry and intact without rashes, ulcerations or petechiae.? Neuro:? Alert and orientated x3, strength is +5/5 in all extremities, sensation to touch intact, no gross deficits noted of cranial nerves. Psych:? Patient has a well-kept appearance, appropriate affect, mental status attitude thought context and judgment are appropriate for age. Objective Labs Result Diagrams: 07/15/22 12:41 07/15/22 05:59 Labs: Laboratory Results - last 24 hr 07/15/22 07/15/22 07/15/22 05:59 05:59 12:41 WBC 4.4 L RBC 3.13 L Hgb 8.8 L 8.7 L Hct 26.4 L 26.0 L MCV 84.6 MCH 28.3 MCHC 33.4 RDW 18.0 H Plt Count 263 Neut % (Auto) 80.4 H Lymph % (Auto) 6.6 L [place] % (Auto) 11.1 Eos % (Auto) 1.4 L Baso % (Auto) 0.5 Neut # (Auto) 3600 Lymph # (Auto) 300 L [place] # (Auto) 500 Eos # (Auto) 100 Baso # (Auto) 0 Sodium 136 L Potassium 3.5 Chloride 104 Carbon Dioxide 28 BUN 24 H Creatinine 0.98 Estimated GFR > 60 BUN/Creatinine Ratio 24.5 H Glucose 103 Calcium 7.9 L PFSH Medical History Anticoagulated Asthma (11/04/11) Atrial flutter (03/20/17) Benign prostatic hyperplasia (11/04/11) Body mass index (BMI) of 30.0 to 39.9 (10/27/11) BPH w urinary obs/LUTS Controlled type 2 diabetes mellitus (10/03/16) Diabetes Diverticulosis of sigmoid colon (03/20/17) Elevated PSA Elevated PSA Essential hypertension (10/27/11) Family history of prostate cancer Gastroesophageal reflux disease (03/01/14) History of primary bladder cancer History of primary bladder cancer History of UTI HLD (hyperlipidemia) Hyperlipidemia (10/27/11) Hypothyroid Lower urinary tract symptoms (LUTS) Malignant neoplasm of urinary bladder (10/11/16) Melena Mild cognitive impairment Neoplasm of uncertain behavior of bladder Osteoarthritis Persistent atrial fibrillation Prostate cancer RBBB plus LA hemiblock Tubular adenoma of colon (03/20/17) Surgical History History of appendectomy History of cardiac radiofrequency ablation History of cystoscopy History of knee surgery Hx of rotator cuff surgery Family History Father CAD (coronary artery disease) Hyperlipidemia Hypertension Hearing impairment Mother CAD (coronary artery disease) Hypertension Hyperlipidemia Cancer Social History marital status: household members: spouse occupational status: previously employed Smoking Status: Never smoker alcohol intake: never substance use type: does not use caffeine: Yes Assessment & Plan Assessment & Plan narrative: 1. Acute blood loss anemia, secondary to Lower GI bleed, recurrent, present on admission -Admit H&H 7.7/23.3, melena plus hematochezia noted -holding all anticoagulation anti-platelet therapy- and VTE prophylaxis -consult for Dr. Perez gen surg placed, now signed off given no available interventions here. -2 units of blood ordered in ED, Hgb increased to 10. Stable between 8.8 and 8.7 today. -Monitor for bleeding -IV protonix -no further interventions here per general surgery, if he rebleeds they reocmmend transfer for either IR intervention or colectomy. -continue to follow h/h. If increasing can discharge home with outpatient follow up. 2. Chronic diastolic HFpEF EF 55% with pulmonary hypertension, Coronary artery disease status post 6 stents placed April 16, 2022, chronic, present on admission-stable Continue medical therapy. -Last Echo reported in prior note to have been completed 12/2021-? This indicated the left ventricular systolic function was normal without focal wall motion abnormalities.? His ejection fraction was 55-60%.? The right ventricle is moderately dilated.? Right systolic ventricular function is mildly reduced.? Left atrium severely dilated, right atrium severely dilated.? There was moderate mitral calcification. 3.?Recent CAD with stents placed -patient notes stents placed a few weeks ago at [facility] -currently on plavix for this as outpatient. -holding plavix for now given GIB, will restart as soon as possible. If h/h stable tomorrow will resume. 4. Chronic obstructive pulmonary disease and restrictive lung disease, present on admission.? Stable. -Does not represent COPD exacerbation. -PFTs on 04/19/2019 demonstrated mild COPD and restrictive disease with decreased diffusion capacity. - Continue Albuterol MDI inhaler with spacer 2 puffs every 4 hours as needed. -continue CPAP -monitor for respiratory distress, or escalating oxygen demand. 5. NIDDM, diet-controlled, present on admission.? Stable. -06/2022 A1c 5.8% well -controlled -Patient is under the care of a asphalt roller person in [place] on [facility]. He is on no diabetic medications and uses various herbal supplements that he cannot recall. -BS check Q6-while NPO, then ACHS -patient admitted under diabetic protocol, monitor for hypo or hyperglycemia, low does sliding scale as needed 6. Chronic kidney disease stage 3, present on admission.-stable -today BUN 28, creatinine 1.02, GFR>60 -06/19/2022 BUN 33, creatinine 1.26, glucose 130, GFR 58.? 05/21/2022 BUN 29, creatinine 1.10, 05/29/22 Rn Social Work.? 1.33. -Baseline DELICATESSEN SLICER. average 1.0 -continue to follow.? 7. Chronic atrial fibrillation/flutter status post ablation, chronic, present on admission.? Stable. -The patient denies complaints of chest pain or palpitations. -Continue amiodarone, metoprolol -Holding anticoagulation with Xarelto, Plavix 8. Hypertension, essential, chronic, present on admission.? Stable. Hypotensive on admit, now improved. restart home meds when able 9. Hyperlipidemia, chronic, present on admission.? Stable. -continue statin 10 Hypothyroidism, acquired, chronic, present on admission.? Stable. -TSH 0.58 -resume home meds. 11. High-grade prostate adenocarcinoma, chronic, present on admission -Currently off of chemotherapy 11. BPH, chronic, present on admission.? Stable. - tamsulosin 0.8 mg daily . 12. GERD, with history of diverticulitis/diverticulosis, chronic, present on admission.? Stable. -No home PPI noted in patients chart- was on protonix daily previously 13. Obstructive sleep apnea on CPAP, chronic, present on admission.? Stable. -Continue home CPAP per RT protocol. Code status:? FULL CODE Surrogate:? Loli card spouse Prophylaxis:? Contraindicated, SCDs only COVID PCR:? Negative Dispo: Monitor for continued bleeding, possible discharge home tomorrow if h/h remains stable. ? Time Spent With Patient Critical Care time: I spent a total of [] minutes of critical care time on this patient's care today; this time is exclusive of procedural time. Quality VTE Deep Vein Thrombosis/Pulmonary Embolism Present on Admission: No
--- NOTE | 2022-07-15 18:22 | PC.NURSE ---
Patient denies pain, abdominal discomfort, and bloody stool. Up with SB assistance and his walker to bathroom, had several small loose BM's today of yellow brown color. 3 nurses were unable to place a PIV, so midline was ordered by and placed by DI nurse to LUCIEN, patient tolerated well. call light within reach, and patient able to make his needs known.
[2022-07-15 20:00] VITALS: BP 145/85; PULSE 111; RESP 20; TEMP 36.7; O2SAT 98
[2022-07-15] MEDS: SODIUM CHLORIDE 0.9% FLUSH 10 ML IV (20:08)
[2022-07-16] VITALS: BP 125/77; PULSE 111; RESP 18; TEMP 37; O2SAT 98
[2022-07-16 04:00] VITALS: BP 116/64; PULSE 81; RESP 16; TEMP 36.3; O2SAT 98
[2022-07-16] MEDS: LEVOTHYROXINE 75 MCG TABLET PO (05:03)
[2022-07-16 05:40] LABS: Add Manual Diff / Slide Review NO; Basophils Absolute Auto 0 /uL (0-100); Basophils Percent Auto 0.6 % (0-2); Eosinophils Absolute Auto 0 /uL (0-450); Eosinophils Percent Auto 1.2 % (2-4); Hematocrit 23.8 % (41-53); Hemoglobin 8.1 g/dL (13.5-17.5); Lymphocytes Absolute Auto 300 /uL (1100-4500); Lymphocytes Percent Auto 7.2 % (25-40); Mean Corpuscular HGB Conc 33.9 % (30-36); Mean Corpuscular Hemoglobin 28.5 PG (26-34); Mean Corpuscular Volume 83.9 fL (80-100); Monocytes Absolute Auto 600 /uL (0-900); Monocytes Percent Auto 13.5 % (3-14); Neutrophils Absolute Auto 3200 /uL (1500-7000); Neutrophils Percent Auto 77.5 % (50-75); Platelet Count 249 X10^3/uL (150-400); Red Blood Cell Count 2.83 X10^6/uL (4.5-5.9); Red Cell Distribution Width 17.9 % (11.6-14.8); White Blood Cell Count 4.1 X10^3/uL (4.5-11.0)
[2022-07-16 05:44] LABS: Alanine Aminotransferase 14 IU/L (<50); Albumin 2.5 g/dL (3.5-5.0); Albumin Globulin Ratio 0.8 (1.0-2.8); Alkaline Phosphatase 77 U/L (38-126); Aspartate Aminotransferase 14 IU/L (17-59); BUN Creatinine Ratio 22.2 (6-22); Bilirubin Total 0.4 mg/dL (0.2-1.3); Blood Urea Nitrogen 20 mg/dL (9-20); Calcium 7.7 mg/dL (8.4-10.2); Carbon Dioxide 26 mmol/L (22-32); Chloride 103 mmol/L (98-107); Estimated Glomerular Filt Rate > 60 mL/min (>60); Glucose 104 mg/dL (80-110); HEMOLYSIS < 15 (0-50); Potassium 3.2 mmol/L (3.4-5.1); Sodium 136 mmol/L (137-145); Total Protein 5.5 g/dL (6.3-8.2)
--- NOTE | 2022-07-16 06:18 | PC.NURSE ---
Nursing Progress Note AAOx4, PHAM, FC, denies pain. Standby assist w/ walker. Afib, BP stable, afebrile. 2 brown BMs this shift. AUOP using toilet.
[2022-07-16 08:00] VITALS: BP 121/67; PULSE 87; RESP 17; TEMP 36; O2SAT 99
[2022-07-16] MEDS: ATORVASTATIN 20 MG TABLET 10 MG PO (09:13)
[2022-07-16] MEDS: LIOTHYRONINE 5 MCG TABLET 10 MCG PO (09:13)
[2022-07-16] MEDS: PANTOPRAZOLE 40 MG VIAL IV (09:13)
[2022-07-16] MEDS: FINASTERIDE 5 MG TABLET PO (09:14)
[2022-07-16] MEDS: PSYLLIUM HUSK 1 PACKET PO (09:14)
[2022-07-16] MEDS: SODIUM CHLORIDE 0.9% FLUSH 10 ML IV (09:15)
[2022-07-16 12:00] VITALS: BP 137/85; PULSE 93; RESP 20; TEMP 37.1; O2SAT 99
[2022-07-16 12:09] LABS: Hematocrit 26.8 % (41-53); Hemoglobin 8.9 g/dL (13.5-17.5)
[2022-07-16] MEDS: POTASSIUM CHLORIDE 20 MEQ TAB 40 MEQ PO (13:12)
--- NOTE | 2022-07-16 13:27 | PM.DS.1 ---
History of Present Illness History of Present Illness Date Patient Seen: 07/16/22 Time Patient Seen: 16:40 Chief complaint: Bleeding from rectum Narrative: Per Toya Martel, [facility]-: Leandro Allen is 77-year-old male nonsmoker with history of prior?high-grade prostate adenocarcinoma, bladder tumor, COPD, Asthma, GERD, diverticulitis, diverticulosis, KIRA, atrial flutter, AFib on? (chronic?Xarelto, plavix, -but stopped asa),?hypothyroidism, hyperlipidemia, BPH with lower urinary OBS, coronary artery disease (stents x6 2021), CKD, normcyticanemia, GI bleed 2020 & 06/19/2022 who presented to the ED with a chief complaint of rectal bleeding that had resolved on last hospitalization, but began again approximately 1 week ago.? He describes stool the color and consistency of black tarry jam with bright red blood mixed in as well.? He denies abdominal pain, but positive nausea that comes & goes.? He has not had any vomiting.? He does not complain that he is dizzy, lightheaded, short of breath, chest pain or palpitations.? He does note that he has a procedure scheduled later this week that ?goes down my throat? it is unclear whether he is talking about a upper endoscopy, it sounds like he may be describing a a transesophageal echo as part of a cardiology workup. He denies hematemesis, hematuria, dysuria, frequency, urgency, bleeding from gums, bleeding from any wounds, changes to medication, recent illness injury or trauma. Patient has not been seen by a GI since previous hospitalization, reported to Dr. Ludwig that he had a normal colonoscopy within the past year. Upon admit exam patient is stable resting in bed, hemodynamically stable and his 1st unit of blood is infusing, with no complaints at this time. Afebrile 98.4, BP 96/54, HR 86, R 16, O2 saturation 98%, patient currently on CPAP for KIRA. H&H on discharge 06/21/2022 8.3/25.3-today 7.7/23.3, RBC 2.73. Chemistries normal with the exception of BUN of 28 improved from baseline CKDstage 3, 06/21/22 albumin 2.7. Today's albumin 3.0. Patient's calcium 8.1, PT 30.7, INR 2.6, PTT 40, COVID negative, guaiac-positive, because patient was hypotensive in ED and guaiac-positive to units were ordered following keara and cross: A+. Patient admitted for acute blood loss anemia secondary to GI bleed. Dr. Perez general surgery to consult. ADMIT 06/19/2022temp 98.2?, mildly hypotensive BP 108/57, HR 69, tachypneic RR 33, O2 saturation 97% on room air.? RBC 2.58, HGB 7.4, HCT 21.7 MCH and MCV are WNL.? Patient's last H&H on 05/21/2022 was 8.1/24.6, mild hyponatremia sodium 134, chloride 97, BUN 33, creatinine 1.26, glucose 130, GFR 58.? 05/21/2022 BUN 29, creatinine 1.10, 05/29/22 Operations Processor.? 1.33.? Patient's albumin is 3.1, calcium 7.8, PT is 29.6 INR is 2.6.? Reported positive Hemoccult in ED, was recommended that patient be transfused was keara mcintosh cross A positive, 1st unit of blood initiated in ED. Dr. Carrasquillo general surgery was consulted and agreed to take the patient for a colonoscopy tomorrow.? Patient admitted for lower GI bleed. Per Dr. Dove Oncology 02/2022: He has been having diarrhea for 3 weeks now about 5-6 times a day. He has not slept well for a long time. He is tired and exalsted. No fever and no chills. 02/28/2022 Dr. Hollingsworth did EGD/C-scope. Normla EGD exept gastric polyps. Normal ilium, diverticulosis and inflammatory chests. Bx pending. DISCHARGE SUMMARY per Dr. Billy: Leandro Allen is 77-year-old male nonsmoker with history of prior?high-grade prostate adenocarcinoma, bladder tumor, COPD, Asthma, GERD, diverticulitis, diverticulosis, KIRA, atrial flutter, AFib on? (chronic?Xarelto, plavix, asa),?hypothyroidism, hyperlipidemia, BPH with lower urinary OBS, coronary artery disease (stents x6 2021), normcytic anemia, GI bleed 2020 who presented to the ED with a chief complaint of dark and tarry stool for the past week or so.? Admitted for GI bleed and acute blood loss anemia. He received a transfusion with improvement in his hemoglobin and hematocrit. He had an EGD which showed mild gastritis, no ulcer. After EGD, his h/h remained stable. His bowel movements had returned to normal. He is recommended to continue on protonix 40 mg PO BID for 1 month, then daily for at least 3 months, presumably longer given his history. His plavix and xarelto are also recommended to be held for at least 1 week. Can resume plavix in 1 week given recent cardiac intervention, but would continue to check h/h every few weeks. Consider outpatient colonoscopy as well with PCP. Discharge Providers Provider Date of admission: 07/12/22 16:28 Discharge Date: 07/16/22 Primary care physician: Leatha Bentley DO Consults: 07/12/22 16:41 Consult to General Surgery Routine Comment: Consulting Provider: Lian Perez Reason for consultation: GI bleed Has provider been notified: Yes 07/14/22 14:16 Consult to Home Health Routine Comment: Reason For Exam: Home Health: for RN, PT/OT, CONTRACT TECHNICAL WRITER, ELASTIC ATTACHER CHAINSTITCH Discharge provider: Latrell Billy DO Summary Hospital Course Discharge Diagnosis: Please see hospital course by problem list noted below. Hospital Course: 1. Acute blood loss anemia, secondary to Lower GI bleed, recurrent, present on admission -Admit H&H 7.7/23.3, melena plus hematochezia noted. He was given 2U PRBC transfusion in the ER which increased his Hg level. This slowly trended down but he had fewer melenotic appearing stools and h/h finally stabilized in the upper 8s. He was able to tolerate a diet and ultimately discharged home. -his home anticoagulation was held, can discharge on plavix given his recent cardiac history. -consult for Dr. Perez gen surg placed. -no further interventions here per general surgery, if he rebleeds they recommended transfer for either IR intervention or colectomy. If patient returns to [facility] with this recurrent bleed, would recommend transfer to another hospital. 2. Chronic diastolic HFpEF EF 55% with pulmonary hypertension, Coronary artery disease status post 6 stents placed April 16, 2022, chronic, present on admission-stable -Last Echo reported in prior note to have been completed 12/2021-? This indicated the left ventricular systolic function was normal without focal wall motion abnormalities.? His ejection fraction was 55-60%.? The right ventricle is moderately dilated.? Right systolic ventricular function is mildly reduced.? Left atrium severely dilated, right atrium severely dilated.? There was moderate mitral calcification. -discharged on plavix and statin therapy. 3.?Recent CAD with stents placed -patient notes stents placed a few weeks ago at [facility] as noted above -currently on plavix for this as outpatient. This was held briefly during his acute bleeding, this was resumed on discharge. 4. Chronic obstructive pulmonary disease and restrictive lung disease, present on admission.? Stable. -Does not represent COPD exacerbation. -PFTs on 04/19/2019 demonstrated mild COPD and restrictive disease with decreased diffusion capacity. 5. NIDDM, diet-controlled, present on admission.? Stable. -06/2022 A1c 5.8% well -controlled -Patient is under the care of a power hair clipper in [place] on [facility]. He is on no diabetic medications and uses various herbal supplements that he cannot recall. 6. Chronic kidney disease stage 3, present on admission.-stable 7. Chronic atrial fibrillation/flutter status post ablation, chronic, present on admission.? Stable. -recommend he stop home anticoagulation. 8. Hypertension, essential, chronic, present on admission.? Stable 9. Hyperlipidemia, chronic, present on admission.? Stable. -continued statin 10 Hypothyroidism, acquired, chronic, present on admission.? Stable. -TSH 0.58 -resumed home meds. 11. High-grade prostate adenocarcinoma, chronic, present on admission -Currently off of chemotherapy 11. BPH, chronic, present on admission.? Stable. - tamsulosin 0.8 mg daily . 12. GERD, with history of diverticulitis/diverticulosis, chronic, present on admission.? Stable. -No home PPI noted in patients chart- was on protonix daily previously 13. Obstructive sleep apnea on CPAP, chronic, present on admission.? Stable. -Continue home CPAP per RT protocol. Time Spent with Patient Time spent: Greater than 30 minutes Exam Vital Signs (past 8 hours): - 07/16/22 08:00 07/16/22 07:00 Temperature 96.8 F L Pulse Rate 87 Respiratory Rate 17 Blood Pressure 121/67 Pulse Oximetry 99 Oxygen Delivery Method Room Air Oxygen Delivery Method Room Air Oxygen Flow Rate 0 Narrative Exam Narrative: General:? Patient is a well-developed, well-nourished in no distress at this time. Pale HEENT:? Normocephalic, atraumatic, extraocular muscles intact, oral pharynx is clear and mucous membranes are moist.? Neck: supple and symmetric, trachea is midline, no adenopathy, no thyroid enlargement, nontender, no masses palpated.? Negative for JVD Chest:? Normal AP diameter and contour without kyphoscoliosis, no nasal flaring, retractions, or tachypneic labored Lungs:? Auscultation of all lung puckett are clear without adventitious sounds, wheezes, rhonchi, or rales. Cardio:? S1 & S2 with regular rate and rhythm without murmur, rubs, or gallops Abdomen:? S NT ND Musculoskeletal:?No effusions or joint tenderness. Skin:? Warm dry and intact without rashes, ulcerations or petechiae.? Neuro:? Alert and orientated x3, strength is +5/5 in all extremities, sensation to touch intact, no gross deficits noted of cranial nerves. Psych:? Patient has a well-kept appearance, appropriate affect, mental status attitude thought context and judgment are appropriate for age. Objective Labs Result Diagrams: 07/16/22 12:00 07/16/22 05:00 Labs: Laboratory Results - last 24 hr 07/16/22 07/16/22 07/16/22 05:00 05:00 12:00 WBC 4.1 L RBC 2.83 L Hgb 8.1 L 8.9 L Hct 23.8 L 26.8 L MCV 83.9 MCH 28.5 MCHC 33.9 RDW 17.9 H Plt Count 249 Neut % (Auto) 77.5 H Lymph % (Auto) 7.2 L [place] % (Auto) 13.5 Eos % (Auto) 1.2 L Baso % (Auto) 0.6 Neut # (Auto) 3200 Lymph # (Auto) 300 L [place] # (Auto) 600 Eos # (Auto) 0 Baso # (Auto) 0 Sodium 136 L Potassium 3.2 L Chloride 103 Carbon Dioxide 26 BUN 20 Creatinine 0.90 Estimated GFR > 60 BUN/Creatinine Ratio 22.2 H Glucose 104 Calcium 7.7 L Total Bilirubin 0.4 AST 14 L ALT 14 Alkaline Phosphatase 77 Total Protein 5.5 L Albumin 2.5 L Globulin 3.0 Albumin/Globulin Ratio 0.8 L [facility] Medical History Anticoagulated Asthma (11/04/11) Atrial flutter (03/20/17) Benign prostatic hyperplasia (11/04/11) Body mass index (BMI) of 30.0 to 39.9 (10/27/11) BPH w urinary obs/LUTS Controlled type 2 diabetes mellitus (10/03/16) Diabetes Diverticulosis of sigmoid colon (03/20/17) Elevated PSA Elevated PSA Essential hypertension (10/27/11) Family history of prostate cancer Gastroesophageal reflux disease (03/01/14) History of primary bladder cancer History of primary bladder cancer History of UTI HLD (hyperlipidemia) Hyperlipidemia (10/27/11) Hypothyroid Lower urinary tract symptoms (LUTS) Malignant neoplasm of urinary bladder (10/11/16) Melena Mild cognitive impairment Neoplasm of uncertain behavior of bladder Osteoarthritis Persistent atrial fibrillation Prostate cancer RBBB plus LA hemiblock Tubular adenoma of colon (03/20/17) Surgical History History of appendectomy History of cardiac radiofrequency ablation History of cystoscopy History of knee surgery Hx of rotator cuff surgery Family History Father CAD (coronary artery disease) Hyperlipidemia Hypertension Hearing impairment Mother CAD (coronary artery disease) Hypertension Hyperlipidemia Cancer Social History marital status: household members: spouse occupational status: previously employed Smoking Status: Never smoker alcohol intake: never substance use type: does not use caffeine: Yes Discharge Plan Discharge Plan Patient Disposition: Home Health Service Provider Discharge Comment: You were admitted to the hospital with lower GI bleeding, likely diverticular. This stopped. Your medications were held. You can probably resume plavix tomorrow, would hold xarelto indefinitely. Discharge orders & Medications Prescriptions: Continued lovastatin 40 MG tablet 40 mg PO Q DAY Qty: 90 3RF levothyroxine 75 mcg Capsule 75 mcg PO DAILY potassium chloride [K-Tab] 20 mEq tablet extended release 40 meq PO DAILY Qty: 4 0RF pantoprazole 40 mg tablet,delayed release (DR/EC) 40 mg PO BID 30 Days Qty: 60 0RF tamsulosin [Flomax] 0.4 MG capsule 0.4 mg PO QPM multivitamin Tablet 1 tab PO DAILY torsemide 20 mg Tablet 20 mg DAILY enalapril maleate 5 MG tablet 10 mg PO QDAY Rx Instructions: Hold for SBP<105 metoprolol succinate 25 mg Tablet Extended Release 24 Hr 25 mg PO DAILY Rx Instructions: 25mg AM 12.5mg pm metoprolol succinate 25 mg Tablet Extended Release 24 Hr 12.5 mg PO BEDTIME Qty: 30 0RF Rx Instructions: Hold for SBP<105 or HR<55 liothyronine 5 mcg tablet 10 mcg PO DAILY amiodarone 200 mg tablet 100 mg PO QPM finasteride 5 mg tablet 5 mg PO DAILY Qty: 90 3RF Discontinued aspirin 81 mg capsule 81 mg PO DAILY Qty: 30 0RF Medication counseling provided by Pharmacist: Yes Follow up/Referrals: Leatha Bentley DO [Primary Care Provider] - Discharge Data Primary Care Provider: Leatha Bentley Quality VTE Deep Vein Thrombosis/Pulmonary Embolism Present on Admission: No
== END 2022-07-16 16:00 | disposition home health service (06) | DRG 378 ==
LOC: ED 15:10 → AC 16:29
PROVIDERS: Internal Medicine; Nurse Practitioner Family; Admitting Provider Student in an Organized Health Care Education/Training Program; Emergency Provider Emergency Medicine; PCP Student in an Organized Health Care Education/Training Program; Referring Provider Emergency Medicine; Visit Provider Student in an Organized Health Care Education/Training Program
DX: K92.1 Melena (principal); D62 Acute posthemorrhagic anemia; I13.0 Hypertensive heart and chronic kidney disease with heart failure and stage 1 through stage 4 chronic kidney disease, or unspecified chronic kidney disease; I50.32 Chronic diastolic (congestive) heart failure; I48.20 Chronic atrial fibrillation, unspecified; N18.30 Chronic kidney disease, stage 3 unspecified; I25.10 Atherosclerotic heart disease of native coronary artery without angina pectoris; J44.9 Chronic obstructive pulmonary disease, unspecified; J99 Respiratory disorders in diseases classified elsewhere; E11.22 Type 2 diabetes mellitus with diabetic chronic kidney disease; G47.33 Obstructive sleep apnea (adult) (pediatric); E03.9 Hypothyroidism, unspecified; E78.5 Hyperlipidemia, unspecified; N40.0 Benign prostatic hyperplasia without lower urinary tract symptoms; I27.20 Pulmonary hypertension, unspecified; K21.9 Gastro-esophageal reflux disease without esophagitis; Z95.5 Presence of coronary angioplasty implant and graft; Z20.822 Contact with and (suspected) exposure to COVID-19; Z79.01 Long term (current) use of anticoagulants
CPT/HCPCS: 36415; 36430; 36592; 80048; 80053; 81015; 84443; 85014; 85018; 85025; 85610; 85730; 86850; 86900; 86901; 87635; 93005; 96374; 99231; 99232; 99284; C9803; P9016; C9113; J1642